=== PATIENT | male | born 1935 | race Caucasian/White ===

== ENCOUNTER → 2018-11-06 11:58 | Outpatient (CLI) | payer OTHER, SELFPAY ==
[2018-11-06 12:19] LABS: Hematocrit 47.9 % (41-53); Hemoglobin 15.9 g/dL (13.5-17.5)
[2018-11-06 14:31] LABS: BUN Creatinine Ratio 12.5 (6-22); Blood Urea Nitrogen 10 mg/dL (9-20); Calcium 9.3 mg/dL (8.4-10.2); Carbon Dioxide 31 mmol/L (22-32); Chloride 100 mmol/L (98-107); Estimated Glomerular Filt Rate > 60.0 mL/min (>60); Glucose 92 mg/dL (80-110); HEMOLYSIS < 15 (0-50); Potassium 4.2 mmol/L (3.4-5.1); Sodium 140 mmol/L (137-145)
[2018-11-06 15:43] LABS: Vitamin D 25 Hydroxy (D3) 88.9 ng/mL (30.0-100.0)
== END ==
PROVIDERS: PCP Student in an Organized Health Care Education/Training Program; Visit Provider Student in an Organized Health Care Education/Training Program
DX: E03.9 Hypothyroidism, unspecified (principal); E55.9 Vitamin D deficiency, unspecified; I10 Essential (primary) hypertension
CPT/HCPCS: 80048; 82306; 85014; 85018

== ENCOUNTER → 2019-02-03 14:49 | Outpatient (CLI) | payer OTHER, SELFPAY ==
[2019-02-03 16:22] LABS: Alanine Aminotransferase 21 IU/L (21-72); Albumin 3.9 g/dL (3.5-5.0); Albumin Globulin Ratio 1.2 (1.0-2.8); Alkaline Phosphatase 66 U/L (38-126); Aspartate Aminotransferase 32 IU/L (17-59); BUN Creatinine Ratio 14.4 (6-22); Bilirubin Total 0.7 mg/dL (0.2-1.3); Blood Urea Nitrogen 13 mg/dL (9-20); Calcium 9.7 mg/dL (8.4-10.2); Carbon Dioxide 32 mmol/L (22-32); Chloride 97 mmol/L (98-107); Estimated Glomerular Filt Rate > 60.0 mL/min (>60); Globulin 3.2 g/dL (1.7-4.1); Glucose 131 mg/dL (80-110); HEMOLYSIS < 15 (0-50); Sodium 139 mmol/L (137-145); Total Protein 7.1 g/dL (6.3-8.2)
[2019-02-03 16:31] LABS: B Type Natriuretic Peptide < 100 (<100)
== END ==
PROVIDERS: PCP Student in an Organized Health Care Education/Training Program; Visit Provider Student in an Organized Health Care Education/Training Program
DX: R60.0 Localized edema (principal)
CPT/HCPCS: 36415; 80053; 83880

== ENCOUNTER 2020-01-08 15:54 | Emergency (ER) | payer OTHER, SELFPAY ==
[2020-01-08 16:00] VITALS: BP 149/71; PULSE 70; RESP 16; TEMP 36.5; O2SAT 96; BMI 35.2
--- NOTE | 2020-01-08 17:08 | ED_ITS ---
HPI - Extremity Injury (Lower) General Chief Complaint: Extremity Injury, Lower Stated Complaint: left knee rash or thinks infected, slight pain Time Seen by Provider: 01/08/20 17:08 Source: patient Mode of arrival: Ambulatory Limitations: no limitations History of Present Illness HPI Narrative: This is an 84-year-old male who comes in with complaint of a wound on his left knee which has not been healing patient states he fell weeks ago. He states that has not closed and he states that there has been sort of some whitish discoloration on the area for the last several days. He has not had any fevers he is not having increasing swelling of the knee. He does not feel like there is increasing redness surrounding the knee. He states there is some discoloration that was present initially. He states there has been some drainage but not excessive. He has been putting hydrogen peroxide on the area every other day since the injury. Patient states that he just scraped his knee. He does not know if his tetanus is up-to-date, he states he follows with Dr. Roman. He denies any allergies to medications. He does take cardiac medications. He is accompanied by family at bedside and she states initially it was more of a scrape but looks more open at this time. Related Data Previous Rx's Medication Instructions Recorded trazodone 50 mg tablet 50 - 100 mg PO HS #180 tab 05/14/19 magnesium oxide 420 mg tablet 420 mg PO DAILY #90 tab 05/19/19 tamsulosin 0.4 mg capsule See Rx Instructions .ROUTE 05/19/19 .COMPLEX #90 capsule amlodipine 10 mg tablet 10 mg PO Q DAY #90 tab 05/31/19 sildenafil (pulm.hypertension) 20 See Rx Instructions .ROUTE 06/14/19 mg tablet .COMPLEX #25 tablet atenolol 50 mg tablet 50 mg PO BID #180 tab 11/02/19 cephalexin [Keflex] 500 mg PO QID 7 Days #28 cap 01/08/20 Allergies Allergy/AdvReac Type Severity Reaction Status Date / Time No Known Drug Allergies Allergy Verified 12/17/19 09:40 Review of Systems Review of Systems ROS Unobtainable: All systems reviewed & are unremarkable except as noted in HPI and below Patient History Medical History Acquired hypothyroidism (09/16/16) Actinic keratosis (Resolved) Basal cell carcinoma (Resolved) 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) Bilateral edema of lower extremity (06/29/15) Bilateral knee pain (Chronic) BPH (benign prostatic hyperplasia) (Chronic) Chronic pain of left knee (11/18/16) Colon polyps (Resolved) Depression (06/29/15) Depression (Chronic) Erectile dysfunction (02/12/16) Erectile dysfunction (Chronic) Essential hypertension (Chronic 06/29/15) Gout (Chronic) 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 HEENT: Head normocephalic, atraumatic, EOMI, pupils reactive, face symmetric, moist mucous membranes NECK: Supple, full range of motion EXTREMITIES: Normal range of motion, no clubbing or edema. Neurovascularly intact. Patient's right knee has abrasion that is 1.5 cm x 2cm in in a regular sq. There is some mild erythema extending about a 0.5 cm from the edge. There does not appear to be any purulent drainage. There is some whitish granulation tissue overlying the area, the abrasion itself appears fairly superficial but is through the skin. NEUROLOGICAL: Cranial nerves II through XII grossly intact. Moving all extremities SKIN: Warm, dry, no petechiae, no rashes or lesions noted otherwise. Initial Vital Signs Initial Vital Signs: Vital Signs Temperature 97.7 F 01/08/20 16:00 Pulse Rate 70 01/08/20 16:00 Respiratory Rate 16 01/08/20 16:00 Blood Pressure 149/71 H 01/08/20 16:00 Pulse Oximetry 96 01/08/20 16:00 Course Orders Ordered: Discontinued Medications Diphtheria/Tetanus/Acell Pertussis (Adacel) 0.5 ml IM .ONCE ONE Stop: 01/08/20 17:27 Vital Signs Vital signs: Vital Signs - 8 hr 01/08/20 16:00 Temperature 97.7 F Pulse Rate 70 Respiratory Rate 16 Blood Pressure 149/71 H Pulse Oximetry 96 MDM - Extremity Injury (Lower) MDM Narrative Medical decision making narrative: Discussed with patient he has not been leaving the area to air out at any point he has been keeping an occlusive dressing on it the majority of the time and using hydrogen peroxide on a regular basis. We discussed this may inhibit healing somewhat. I would go ahead and start him on some antibiotics as he does have some whitish discoloration and to change his wound care routine. I did ask that he follow-up with primary care in the next several days or if he is having any worsening symptoms to return. Patient was unsure of his tetanus, he in the EMR record it is not noted that it has been given recently and he was amenable to update today. Discharge Plan Departure Patient Disposition: Home Clinical Impression: Open wound of knee Qualifiers: Encounter type: initial encounter Laterality: left Qualified Code(s): S81.002A - Unspecified open wound, left knee, initial encounter Instructions: Skin Wound Activity Restrictions/Additional Instructions: Follow up with Dr. Roman in the next 3-5 days if you are not having any improvement of your wound on your knee. Take antibiotics until gone. Continue your other home medications as prescribed. Do not use hydrogen peroxide to the affected area anymore. Allow area to air dry when at home dressing and only use an occlusive dressing sparingly. Wound Care: Keep wound(s) clean and dry. Wash daily with soap and water only twice daily. Do not use over the counter products (alcohol or peroxide)on the wounds unless instructed by a physician. If wound condition worsens (increased/expanding redness, developing fluid blisters, or worsening pain), either contact your doctor for an urgent re- assessment , or return to the Emergency Department. Return to the Emergency Department for any new or worsening symptoms. Return if fever greater than 100.4 Fahrenheit, increased swelling, increasing pain or worsening symptoms such as increased discharge or spreading redness, increasing or purulent drainage other new or concerning symptoms. Prescriptions: New cephalexin [Keflex] 500 mg capsule 500 mg PO QID 7 Days Qty: 28 RF: 0 No Action trazodone 50 mg tablet 50 - 100 mg PO HS Qty: 180 RF: 3 tamsulosin 0.4 mg capsule See Rx Instructions .ROUTE .COMPLEX Qty: 90 RF: 3 magnesium oxide 420 mg tablet 420 mg PO DAILY Qty: 90 RF: 3 amlodipine 10 mg tablet 10 mg PO Q DAY Qty: 90 RF: 3 sildenafil (pulm.hypertension) 20 mg tablet See Rx Instructions .ROUTE .COMPLEX Qty: 25 RF: 11 atenolol 50 mg tablet 50 mg PO BID Qty: 180 RF: 3 Referrals: Larry Roman MD [Primary Care Provider] -
[2020-01-08] MEDS: TET,DIPH,PERTUSS(ACELL),VAC/PF 0.5 ML SYRINGE IM (17:40)
== END 2020-01-08 17:48 | disposition home or self-care (01) ==
PROVIDERS: Emergency Provider Emergency Medicine; PCP Student in an Organized Health Care Education/Training Program
DX: S81.002A Unspecified open wound, left knee, initial encounter (principal); W19.XXXA Unspecified fall, initial encounter; Z23 Encounter for immunization
CPT/HCPCS: 90471; 99283; 90715

== ENCOUNTER → 2020-01-18 13:43 | Outpatient (CLI) | payer OTHER, SELFPAY ==
[2020-01-18 14:55] LABS: BUN Creatinine Ratio 13.5 (6-22); Blood Urea Nitrogen 13 mg/dL (9-20); Calcium 9.6 mg/dL (8.4-10.2); Carbon Dioxide 31 mmol/L (22-32); Chloride 102 mmol/L (98-107); Estimated Glomerular Filt Rate > 60.0 mL/min (>60); Glucose 102 mg/dL (80-110); HEMOLYSIS < 15 (0-50); Potassium 4.1 mmol/L (3.4-5.1); Sodium 139 mmol/L (137-145)
== END ==
PROVIDERS: PCP Student in an Organized Health Care Education/Training Program; Referring Provider Student in an Organized Health Care Education/Training Program; Visit Provider Student in an Organized Health Care Education/Training Program
DX: I10 Essential (primary) hypertension (principal)
CPT/HCPCS: 36415; 80048

== ENCOUNTER → 2020-01-21 16:30 | Outpatient (CLI) | payer OTHER, SELFPAY ==
[2020-01-21 16:57] LABS: Add Manual Diff / Slide Review NO; Basophils Absolute Auto 0 /uL (0-100); Basophils Percent Auto 0.6 % (0-2); Eosinophils Absolute Auto 100 /uL (0-450); Eosinophils Percent Auto 1.8 % (2-4); Hematocrit 46.6 % (41-53); Hemoglobin 16.3 g/dL (13.5-17.5); Lymphocytes Absolute Auto 1200 /uL (1100-4500); Lymphocytes Percent Auto 16.2 % (25-40); Mean Corpuscular Hemoglobin 33.6 PG (26-34); Monocytes Absolute Auto 800 /uL (0-900); Monocytes Percent Auto 11.5 % (3-14); Neutrophils Absolute Auto 5200 /uL (1500-7000); Neutrophils Percent Auto 69.9 % (50-75); Platelet Count 158 X10^3/uL (150-400); Red Blood Cell Count 4.86 X10^6/uL (4.5-5.9); Red Cell Distribution Width 14.5 % (11.6-14.8); White Blood Cell Count 7.4 X10^3/uL (4.5-11.0)
[2020-01-21 17:19] LABS: C-Reactive Protein Quant 1.3 mg/dL (<1.0)
[2020-01-21 17:47] LABS: Testosterone 302 ng/dL (71.8-623)
[2020-01-21 18:03] LABS: Vitamin B12 202 pg/mL (239-931)
[2020-01-21 18:13] LABS: TSH w/ Reflex to FT4 3.14 uIU/mL (0.47-4.68)
== END ==
PROVIDERS: PCP Student in an Organized Health Care Education/Training Program; Referring Provider Student in an Organized Health Care Education/Training Program; Visit Provider Student in an Organized Health Care Education/Training Program
DX: F32.9 Major depressive disorder, single episode, unspecified (principal); E03.9 Hypothyroidism, unspecified; R53.83 Other fatigue; N52.9 Male erectile dysfunction, unspecified
CPT/HCPCS: 36415; 82607; 84403; 84443; 85025; 86140

== ENCOUNTER → 2020-03-09 09:01 | Outpatient (CLI) | payer OTHER, SELFPAY ==
[2020-03-10 19:03] LABS: COVID19 Sendout Not Detected (Not Detect)
== END ==
PROVIDERS: PCP Student in an Organized Health Care Education/Training Program; Visit Provider Physician Assistant
DX: Z01.812 Encounter for preprocedural laboratory examination (principal)
CPT/HCPCS: 87635

== ENCOUNTER 2020-10-23 02:07 | Emergency (ER) | payer OTHER, SELFPAY ==
[2020-10-23] VITALS (15 sets, daily range): BP systolic 88–135; BP diastolic 51–58; PULSE 62–68; RESP 19–26; TEMP 36.9; O2SAT 87–100; BMI 34.2
--- NOTE | 2020-10-23 02:22 | DI.CT.S_ITS ---
PROCEDURE: CT HEAD/BRAIN WO CON INDICATIONS: fall dizzy TECHNIQUE: Noncontrast 4.5 mm thick angled axial sections acquired from the foramen magnum to the vertex, with coronal and sagittal reformats. For radiation dose reduction, the following was used: automated exposure control, adjustment of mA and/or kV according to patient size. COMPARISON: [facility], CT, HEAD WITHOUT CONTRAST, 06/24/2015, 19:53. FINDINGS: Image quality: Excellent. CSF spaces: Basal cisterns are patent. No extra-axial fluid collections. The ventricles are symmetric in size and shape. Brain: No acute intracranial hemorrhage or mass effect. An old lacunar infarct versus prominent perivascular space is seen in the right basal ganglia, which appears stable when compared to the prior CT from 06/24/2015. A small focus of chronic encephalomalacia is seen in the right frontal lobe, compatible with a remote prior insult. There is cerebral volume loss for age, with resultant ventricular and sulcal prominence. There are periventricular and deep white matter chronic small vessel ischemic changes. There is intracranial internal carotid artery atherosclerosis. Skull and face: Calvarium and visualized facial bones appear intact, without suspicious lesions. Sinuses: Visualized sinuses and mastoids are clear. IMPRESSION: 1. No acute intracranial abnormality. 2. Focus of chronic encephalomalacia in the right frontal lobe may be secondary to a remote prior infarct or trauma. 3. Chronic microvascular ischemic changes and age related cerebral atrophy. There is no significant discrepancy when compared to the overnight Teleradiology report. Dictated by: Eduardo Kurtz M.D. on 10/23/2020 at 7:44 Approved by: Eduardo Kurtz M.D. on 10/23/2020 at 7:48
--- NOTE | 2020-10-23 02:24 | ED.FALL ---
HPI - Fall General Chief Complaint: Fall Stated Complaint: Dizzy, GLF Time Seen by Provider: 10/23/20 02:15 Source: patient and EMS Mode of arrival: EMS Limitations: no limitations History of Present Illness HPI Narrative: Patient is an 85-year-old male who presents after ground level fall. He states that he had 1 drink at 5:00 p.m. typically does. He was trying to go to sleep now he got up and some is a had a ground level fall. Initially there was some complaint of dizziness but he actually is not having any dizziness now he did have 1 episode of vomiting. He denies any chest pain or palpitations. He has no numbness tingling or weakness. He says that his left knee gave out from him. According to records he has had bilateral lower extremity weakness which is been on going. His left knee to be your wrist and has had complaints of this in the past. He says got he got up in his left knee buckled and he fell. He called out to his roommate who called 911 and was brought here for further evaluation. MD complaint: fall Onset (ago): minute(s) Fall from: standing Fall witnessed: no Place fall occurred: home Related Data Previous Rx's Medication Instructions Recorded magnesium oxide 420 mg tablet 420 mg PO DAILY #90 tab 05/19/19 atenolol 50 mg tablet 50 mg PO BID #180 tab 11/02/19 tamsulosin 0.4 mg capsule 0.4 mg PO BEDTIME #90 cap 02/18/20 trazodone 50 mg tablet 50 - 100 mg PO HS #180 tab 03/29/20 amlodipine 10 mg tablet 10 mg PO Q DAY #90 tab 05/15/20 diclofenac sodium 100 mg 100 mg PO BID #60 tab 09/22/20 tablet,extended release 24 hr sildenafil (pulm.hypertension) 20 20 - 100 mg PO DAILY PRN #30 tab 10/19/20 mg tablet Allergies Allergy/AdvReac Type Severity Reaction Status Date / Time No Known Drug Allergies Allergy Verified 09/22/20 14:03 Review of Systems Review of Systems ROS Unobtainable: All systems reviewed & are unremarkable except as noted in HPI and below Constitutional Constitutional: Denies chills, Denies fever(s), Denies lethargy, Reports poor appetite and Denies weakness Eyes Eyes: Denies loss of vision Cardiovascular Cardiovascular: Denies chest pain, Denies irregular heart rhythm, Reports lightheadedness, Denies dyspnea and Denies dyspnea on exertion Respiratory Respiratory: Denies cough, Denies dyspnea, Denies dyspnea on exertion and Denies wheezing Gastrointestinal Gastrointestinal: Reports as per HPI, Reports abdominal pain (LLQ x 3 days), Denies loose stools and Denies nausea Musculoskeletal Musculoskeletal: Reports as per HPI and Reports arthralgias Integumentary/Breasts Skin/Breast: Denies pruritus, Denies erythema, Denies rash and Denies wounds Neurologic Neurologic: Denies localized weakness, Denies loss of vision, Denies memory loss and Denies weakness Psychiatric Psychiatric: Denies memory loss Allergic/Immunologic Allergic/Immunologic: Denies wheezing Patient History Medical History Acquired hypothyroidism (09/16/16) Actinic keratosis Basal cell carcinoma 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) Bilateral edema of lower extremity (06/29/15) Bilateral knee pain BPH (benign prostatic hyperplasia) Chronic pain of left knee (11/18/16) Colon polyps Depression (06/29/15) Depression Erectile dysfunction (02/12/16) Erectile dysfunction Essential hypertension (06/29/15) 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) Hemorrhoids Hyperlipemia Hypertension Hyperthyroidism Insomnia Obstructive sleep apnea Osteoarthritis Papules Pedal edema Primary insomnia (09/16/16) Pure hypercholesterolemia (02/12/16) Squamous cell carcinoma Surgical History History of ectropion repair (10/2017) Hx of surgical procedure Family History Family/Other Unknown family medical history Social History Smoking Status: Current every day smoker Smoking Status: Current every day smoker alcohol intake frequency: 0-2 drinks per day Substance Use Type: does not use Exam Initial Vital Signs Initial Vital Signs: Vital Signs Pulse Oximetry 100 10/23/20 02:09 GENERAL: Alert pleasant 85-year-old male and in no acute distress. HEENT: Head atraumatic,EOMI, pupils reactive, face symmetric, moist mucous membranes CARDIOVASCULAR: Regular rate and rhythm without murmurs, rubs or gallops. RESPIRATORY: Breath sounds equal bilaterally, no wheezes rales or rhonchi. ABDOMEN: Soft, tender left lower quadrant no guarding or rebound EXTREMITIES: Normal range of motion, no clubbing or edema. Neurovascularly intact NEUROLOGICAL: Alert and oriented x4.Normal gait and speech. Cranial nerves II through XII grossly intact. Good [id number], good [id number], strength equal bilaterally, no dysarthria or aphasia, sensation in tact to soft touch bilaterally, no visual changes, no facial droop SKIN: Warm, dry, no laceration, no petechiae, no rashes or lesions. Scores NIH Stroke Scale Level of Conciousness: Alert, keenly responsive Ask month/age: Answers both questions correctly. Open/close eyes, close hand: Performs both tasks correctly Best gaze horizontal: Normal Visual zeng: No visual loss Facial palsy: Normal symetrical movement Left arm drift: No drift for full 10 sec Right arm drift: No drift for full 10 sec Left leg drift: No drift for full 5 sec Right leg drift: No drift for full 5 sec Limb ataxia: Absent Sensory on face/arms/legs: Normal, no sensory loss Best language: No aphasia, normal Dysarthria: Normal Extinction or inattention: No abnormality Total NIH Stroke scale score: 0 Course Orders Ordered: ED Orders 10/23/20 02:06 EKG-12 Lead Stat 10/23/20 02:22 CT head/brain wo con Stat 10/23/20 02:27 XR chest 1V Stat XR knee LT 3V Stat 10/23/20 02:30 Lactate (Lactic Acid) Stat Lipase Stat Procalcitonin Stat 10/23/20 02:35 Complete Blood Count AUTO DIFF Stat Comprehensive Metabolic Panel Stat Troponin & CK Cardiac Panel Stat 10/23/20 03:38 CT abdomen pelvis w con Stat 10/23/20 04:40 COVID19 Stat Discontinued Medications Sodium Chloride (Normal Saline 0.9%) 1,000 mls @ 150 mls/hr IV CONT BHAVIN Last Admin: 10/23/20 04:41 Dose: 150 mls/hr Documented by: MADDIE Sodium Chloride (Normal Saline 0.9%) 1,000 mls @ 1,000 mls/hr IV BOLUS ONE Stop: 10/23/20 03:30 Last Infusion: 10/23/20 04:02 Dose: 0 mls/hr Documented by: Admin: 10/23/20 02:50 Dose: 1,000 mls/hr Documented by: MADDIE Vital Signs Vital signs: Vital Signs - 8 hr 10/23/20 02:09 10/23/20 02:10 10/23/20 02:14 Temperature 98.4 F Pulse Rate 63 67 Respiratory Rate 20 Blood Pressure 100/55 L 100/55 L Pulse Oximetry 100 98 10/23/20 02:30 10/23/20 02:59 10/23/20 03:00 Temperature Pulse Rate 65 64 63 Respiratory Rate 19 26 H 23 Blood Pressure 88/51 L 96/55 L Pulse Oximetry 90 L 90 L 91 10/23/20 03:30 10/23/20 04:14 10/23/20 04:30 Temperature Pulse Rate 62 66 Respiratory Rate 20 Blood Pressure 110/54 L Pulse Oximetry 91 93 89 L 10/23/20 04:34 10/23/20 05:00 10/23/20 05:26 Temperature Pulse Rate 65 66 68 Respiratory Rate 24 22 Blood Pressure 114/51 L 107/51 L 135/58 L Pulse Oximetry 87 L 94 10/23/20 05:30 10/23/20 05:58 10/23/20 06:00 Temperature Pulse Rate 65 68 Respiratory Rate Blood Pressure 108/55 L 111/55 L Pulse Oximetry 94 91 MDM - Fall Lab Data Attestation: I reviewed the patient's lab results. Result diagrams: 10/23/20 02:35 10/23/20 02:35 Labs: Lab Results 10/23/20 10/23/20 10/23/20 Range/Units 02:30 02:30 02:30 WBC (4.5-11.0) X10^3/uL RBC (4.5-5.9) X10^6/uL Hgb (13.5-17.5) g/dL Hct (41-53) % MCV (80-100) fL MCH (26-34) PG MCHC (30-36) % RDW (11.6-14.8) % Plt Count (150-400) X10^3/uL Neut % (Auto) (50-75) % Lymph % (Auto) (25-40) % [place] % (Auto) (3-14) % Eos % (Auto) (2-4) % Baso % (Auto) (0-2) % Neut # (Auto) (3040-9924) /uL Lymph # (Auto) (2167-9621) /uL [place] # (Auto) (0-900) /uL Eos # (Auto) (0-450) /uL Baso # (Auto) (0-100) /uL Sodium (137-145) mmol/L Potassium (3.4-5.1) mmol/L Chloride (98-107) mmol/L Carbon Dioxide (22-32) mmol/L BUN (9-20) mg/dL Creatinine (0.66-1.25) mg/dL Estimated GFR (>60) mL/min BUN/Creatinine Ratio (6-22) Glucose (80-110) mg/dL Lactate 2.1 (0.7-2.1) mmol/L Calcium (8.4-10.2) mg/dL Total Bilirubin (0.2-1.3) mg/dL AST (17-59) IU/L ALT (<50) IU/L Alkaline Phosphatase (38-126) U/L Total Creatine Kinase (55-170) U/L CK-MB (CK-2) CK-MB (CK-2) Rel Index Troponin I (0.01-0.034) ng/mL Total Protein (6.3-8.2) g/dL Albumin (3.5-5.0) g/dL Globulin (1.7-4.1) g/dL Albumin/Globulin Ratio (1.0-2.8) Lipase 93 (23-300) U/L Procalcitonin 0.09 (<0.5) ng/mL SARS-CoV-2 (PCR) (Negative) 10/23/20 10/23/20 10/23/20 Range/Units 02:35 02:35 04:40 WBC 6.8 (4.5-11.0) X10^3/uL RBC 4.06 L (4.5-5.9) X10^6/uL Hgb 13.1 L (13.5-17.5) g/dL Hct 39.5 L (41-53) % MCV 97.4 (80-100) fL MCH 32.2 (26-34) PG MCHC 33.1 (30-36) % RDW 14.9 H (11.6-14.8) % Plt Count 179 (150-400) X10^3/uL Neut % (Auto) 66.7 (50-75) % Lymph % (Auto) 21.0 L (25-40) % [place] % (Auto) 7.6 (3-14) % Eos % (Auto) 3.4 (2-4) % Baso % (Auto) 1.3 (0-2) % Neut # (Auto) 4500 (7522-4978) /uL Lymph # (Auto) 1400 (4330-6390) /uL [place] # (Auto) 500 (0-900) /uL Eos # (Auto) 200 (0-450) /uL Baso # (Auto) 100 (0-100) /uL Sodium 137 (137-145) mmol/L Potassium 4.0 (3.4-5.1) mmol/L Chloride 104 (98-107) mmol/L Carbon Dioxide 31 (22-32) mmol/L BUN 42 H (9-20) mg/dL Creatinine 1.10 (0.66-1.25) mg/dL Estimated GFR > 60.0 (>60) mL/min BUN/Creatinine Ratio 38.2 H (6-22) Glucose 100 (80-110) mg/dL Lactate (0.7-2.1) mmol/L Calcium 8.5 (8.4-10.2) mg/dL Total Bilirubin 0.5 (0.2-1.3) mg/dL AST 17 (17-59) IU/L ALT 9 (<50) IU/L Alkaline Phosphatase 46 (38-126) U/L Total Creatine Kinase 31 L (55-170) U/L CK-MB (CK-2) TNP CK-MB (CK-2) Rel Index TNP Troponin I < 0.012 (0.01-0.034) ng/mL Total Protein 5.6 L (6.3-8.2) g/dL Albumin 2.8 L (3.5-5.0) g/dL Globulin 2.8 (1.7-4.1) g/dL Albumin/Globulin Ratio 1.0 (1.0-2.8) Lipase (23-300) U/L Procalcitonin (<0.5) ng/mL SARS-CoV-2 (PCR) Negative (Negative) Imaging Data CT scan - head: Radiologist's Impression: Preliminary report generalized involutional changes noted consistent with age. No acute identified. Right frontal encephalomalacia is consistent previous trauma or infarct. Extremity x-ray #1: Radiologist's Impression: Left knee preliminary report: Findings are suggestive of chronic patellar tendinopathy potentially an old tear. No acute abnormality or intra-articular abnormality appreciated Chest x-ray: Radiologist's Impression: No active cardiopulmonary disease demonstrated CT scan - abdomen/pelvis: Radiologist's Impression: Subtle pericolic stranding could represent mild diverticulitis no perforation or abscess. Cholelithiasis by renal cysts sepsis prostate enlargement degenerative changes of lumbar spine are all noted. ECG Data Attestation: I personally reviewed and interpreted this ECG as follows: Prior ECG tracings: available for review Interpretation: He sinus rhythm rate 67 p.r. interval 172 QRS [address] changes or T-wave inversions MDM Narrative Medical decision making narrative: Initially patient was thought to be complaining of dizziness home is denying any dizziness or focal deficits. Blood pressure is found to be slightly low which easily improves with IV fluids. Patient was re-evaluated and some tenderness in left lower quadrant. He states that this has been there for the last couple of days. CT shows possible mild diverticulitis but he has no leukocytosis fever or really significant pain. At this time no antibiotics. His O2 sat decreases while sleeping to 87% he does have a history of sleep apnea. He is not complaining of any shortness of breath chest x-ray was clear. COVID test is negative. Patient is ambulatory in the ER without any assistance or assistive walking device. I have discussed test results with his daughter. Discharge Plan Departure Patient Disposition: Home Clinical Impression: Dehydration Instructions: Dehydration, How to Prevent Falls Activity Restrictions/Additional Instructions: *You have been diagnosed with dehydration *What to do: Some of your symptoms are likely related to being dehydrated. Please increase fluid intake as tolerated increased fluid intake as tolerated as well. Air CT scan of abdomen shows possible mild infection diverticulitis however the blood work is overall reassuring. If your pain is worsening you may his need antibiotics so please return to the emergency department *Continue to take medications as directed *Follow up with your primary care provider in 2-3 days *Return to ER if you should have worsening dizziness, weakness, vomiting, abdominal pain or any new, worsening or concerning symptoms Prescriptions: No Action magnesium oxide 420 mg tablet 420 mg PO DAILY Qty: 90 RF: 3 atenolol 50 mg tablet 50 mg PO BID Qty: 180 RF: 3 tamsulosin 0.4 mg capsule 0.4 mg PO BEDTIME Qty: 90 RF: 3 trazodone 50 mg tablet 50 - 100 mg PO HS Qty: 180 RF: 3 amlodipine 10 mg tablet 10 mg PO Q DAY Qty: 90 RF: 3 sildenafil (pulm.hypertension) 20 mg tablet 20 - 100 mg PO DAILY PRN (Reason: sexual activity) Qty: 30 RF: 11 diclofenac sodium 100 mg tablet extended release 24 hr 100 mg PO BID Qty: 60 RF: 11 Referrals: Larry Roman MD [Primary Care Provider] -
--- NOTE | 2020-10-23 02:27 | DI.RAD.S_ITS ---
PROCEDURE: XR CHEST 1V INDICATIONS: dizzy TECHNIQUE: One view of the chest was acquired. COMPARISON: [facility], , CHEST 1 VIEW, 09/14/2016, 12:29. FINDINGS: Surgical changes and devices: None. Lungs and pleura: Lungs are clear. No pleural effusions or pneumothorax. Mediastinum: Mediastinal contours appear normal. Heart size is borderline, which is likely exaggerated by AP technique. Bones and chest wall: No suspicious bony lesions. Overlying soft tissues appear unremarkable. IMPRESSION: No acute cardiopulmonary abnormality. There is no significant discrepancy when compared to the overnight Teleradiology report. Dictated by: Eduardo Kurtz M.D. on 10/23/2020 at 7:51 Approved by: Eduardo Kurtz M.D. on 10/23/2020 at 7:53
--- NOTE | 2020-10-23 02:27 | DI.RAD.S_ITS ---
PROCEDURE: XR KNEE LT 3V INDICATIONS: fall weakness TECHNIQUE: 3D views of the knee were acquired. COMPARISON: [facility], , KNEE 3V LEFT, 07/17/2017, 0:31. [facility], , KNEE 3V RIGHT, 10/03/2017, 19:20. FINDINGS: Bones: No acute fractures or dislocations. No suspicious bony lesions. Mild joint space narrowing is seen in the medial femorotibial compartment. 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 Enthesophyte formation is seen at the inferior patella. Soft tissues: No significant joint effusion. No suspicious soft tissue calcifications. Atherosclerotic calcifications are seen along the course of the popliteal artery. A small radiodense foreign body is seen at the posterior medial aspect of the knee, unchanged when compared to the prior exam. IMPRESSION: No acute osseous abnormality. If clinical suspicion and/or symptoms persist, additional imaging with repeat plain films, or advanced imaging (e.g. CT, MRI) may be helpful for further assessment. There is no significant discrepancy when compared to the overnight Teleradiology report. Dictated by: Eduardo Kurtz M.D. on 10/23/2020 at 7:48 Approved by: Eduardo Kurtz M.D. on 10/23/2020 at 7:51
[2020-10-23 02:45] LABS: Add Manual Diff / Slide Review NO; Basophils Absolute Auto 100 /uL (0-100); Basophils Percent Auto 1.3 % (0-2); Eosinophils Absolute Auto 200 /uL (0-450); Eosinophils Percent Auto 3.4 % (2-4); Hematocrit 39.5 % (41-53); Hemoglobin 13.1 g/dL (13.5-17.5); Lymphocytes Absolute Auto 1400 /uL (1100-4500); Mean Corpuscular HGB Conc 33.1 % (30-36); Mean Corpuscular Hemoglobin 32.2 PG (26-34); Mean Corpuscular Volume 97.4 fL (80-100); Monocytes Absolute Auto 500 /uL (0-900); Monocytes Percent Auto 7.6 % (3-14); Neutrophils Absolute Auto 4500 /uL (1500-7000); Neutrophils Percent Auto 66.7 % (50-75); Platelet Count 179 X10^3/uL (150-400); Red Blood Cell Count 4.06 X10^6/uL (4.5-5.9); Red Cell Distribution Width 14.9 % (11.6-14.8); White Blood Cell Count 6.8 X10^3/uL (4.5-11.0)
[2020-10-23] MEDS: SODIUM CHLORIDE 0.9% 1,000 ML 1000 ML IV (02:50)
[2020-10-23 02:51] LABS: Alanine Aminotransferase 9 IU/L (<50); Albumin 2.8 g/dL (3.5-5.0); Alkaline Phosphatase 46 U/L (38-126); Aspartate Aminotransferase 17 IU/L (17-59); BUN Creatinine Ratio 38.2 (6-22); Bilirubin Total 0.5 mg/dL (0.2-1.3); Blood Urea Nitrogen 42 mg/dL (9-20); Calcium 8.5 mg/dL (8.4-10.2); Carbon Dioxide 31 mmol/L (22-32); Chloride 104 mmol/L (98-107); Creatine Kinase 31 U/L (55-170); Estimated Glomerular Filt Rate > 60.0 mL/min (>60); Globulin 2.8 g/dL (1.7-4.1); Glucose 100 mg/dL (80-110); HEMOLYSIS 17 (0-50); Sodium 137 mmol/L (137-145); Total Protein 5.6 g/dL (6.3-8.2)
[2020-10-23 03:03] LABS: Troponin I < 0.012 ng/mL (0.01-0.034)
[2020-10-23 03:38] LABS: Lipase 93 U/L (23-300)
--- NOTE | 2020-10-23 03:38 | DI.CT.S_ITS ---
PROCEDURE: CT ABDOMEN PELVIS W CON INDICATIONS: LLQpain TECHNIQUE: After the administration of intravenous contrast, 5 mm thick sections acquired from the diaphragm to the symphysis. 5 mm coronal and sagittal reformats were acquired. For radiation dose reduction, the following was used: automated exposure control, adjustment of mA and/or kV according to patient size. COMPARISON: None. FINDINGS: Image quality: Excellent. ABDOMEN: Lung bases: There is mild elevation of the left hemidiaphragm and atelectasis seen in both lung bases. Heart size is normal. Solid organs: Liver is normal in size and enhancement. Gallbladder contains gallstones. Biliary system is non dilated. Pancreas enhances normally. Spleen is normal in size and enhancement. No adrenal nodules. Kidneys demonstrate normal size and enhancement, without hydronephrosis. Multiple cysts are seen in both kidneys. A 2 x 1.7 cm exophytic lesion at the inferior pole of the left kidney is most likely a proteinaceous or hemorrhagic cyst versus a solid mass. Peritoneum and bowel: Multiple diverticula are seen in the colon. There is mild inflammatory fat stranding along the left pericolic gutter that likely represents mild diverticulitis. No discrete fluid collection is seen. There is no pneumoperitoneum. No signs of bowel obstruction are seen. A large amount of undigested food material is seen in the stomach. The appendix appears normal. Nodes and vessels: No retroperitoneal or mesenteric adenopathy by size criteria. Aorta and inferior vena cava are normal in size. Moderate atherosclerotic calcifications are seen in the aorta. Miscellaneous: No ventral hernias. PELVIS: Genitourinary: Bladder wall thickness is normal. The prostate is enlarged. Miscellaneous: No inguinal hernias or adenopathy. Bones: No suspicious bony lesions. No vertebral body compression fractures. Multilevel degenerative changes are seen in the included portions of the spine. IMPRESSION: 1. Mild acute uncomplicated diverticulitis at the junction of the descending and sigmoid colon. 2. Cholelithiasis. 3. Hyperdense 2 cm exophytic lesion at the inferior pole of left kidney may represent a proteinaceous or hemorrhagic cyst versus a solid mass. Consider renal ultrasound versus renal protocol MRI or CT for further evaluation. Numerous additional simple renal cysts are seen bilaterally. 4. Prostatomegaly. There is no significant discrepancy when compared to the overnight Teler[facility] report. Dictated by: Eduardo Kurtz M.D. on 10/23/2020 at 7:55 Approved by: Eduardo Kurtz M.D. on 10/23/2020 at 8:03
[2020-10-23 03:41] LABS: Lactate (Lactic Acid) 2.1 mmol/L (0.7-2.1)
[2020-10-23 03:56] LABS: Procalcitonin 0.09 ng/mL (<0.5)
[2020-10-23] MEDS: SODIUM CHLORIDE 0.9% 1,000 ML 150 ML IV (04:41)
[2020-10-23 05:00] LABS: COVID19 -Nasal RAPID Negative (Negative)
[2020-10-23 05:28] LABS: Reflexed Lactate in 2 Hours Y
== END 2020-10-23 06:10 | disposition home or self-care (01) ==
PROVIDERS: Emergency Provider Emergency Medicine; PCP Student in an Organized Health Care Education/Training Program
DX: E86.0 Dehydration (principal); R10.32 Left lower quadrant pain; R11.10 Vomiting, unspecified; Z20.822 Contact with and (suspected) exposure to COVID-19; W19.XXXA Unspecified fall, initial encounter
CPT/HCPCS: 36415; 70450; 71045; 73562; 74177; 80053; 82550; 83605; 83690; 84145; 84484; 85025; 87635; 93005; C9803; Q9967

== ENCOUNTER 2020-10-23 18:52 | Emergency (ER) | payer OTHER, SELFPAY ==
[2020-10-23] VITALS (44 sets, daily range): BP systolic 82–122; BP diastolic 46–58; PULSE 60–74; RESP 1–32; TEMP 36.4–36.7; O2SAT 76–100
--- NOTE | 2020-10-23 19:29 | DI.CT.S_ITS ---
PROCEDURE: CT HEAD/BRAIN WO CON INDICATIONS: dizziness, ? syncope TECHNIQUE: Noncontrast 4.5 mm thick angled axial sections acquired from the foramen magnum to the vertex, with coronal and sagittal reformats. For radiation dose reduction, the following was used: automated exposure control, adjustment of mA and/or kV according to patient size. COMPARISON: [facility], CT, CT HEAD/BRAIN WO CON, 10/23/2020, 2:31. FINDINGS: Image quality: Excellent. CSF spaces: Basal cisterns are patent. No extra-axial fluid collections. The ventricles are symmetric in size and shape. Brain: No intracranial bleeds or masses. There is cerebral volume loss for age, with resultant ventricular and sulcal prominence. There are periventricular and deep white matter chronic small vessel ischemic changes. Old small right inner frontal deep white matter infarct extending minimally to the cortex, old bilateral basal ganglia lacunar infarctions. There is intracranial internal carotid artery atherosclerosis. Skull and face: Calvarium and visualized facial bones appear intact, without suspicious lesions. Sinuses: Visualized sinuses and mastoids are clear. IMPRESSION: 1. No significant interval change since the study from earlier on the same date. 2. Remote infarcts. 3. No evidence acute stroke, hemorrhage, or mass. Dictated by: Humble Franco M.D. on 10/23/2020 at 19:56 Approved by: Humble Franco M.D. on 10/23/2020 at 20:01
--- NOTE | 2020-10-23 19:29 | DI.RAD.S_ITS ---
PROCEDURE: XR CHEST 1V INDICATIONS: dizziness TECHNIQUE: One view of the chest was acquired. COMPARISON: [facility], CR, XR CHEST 1V, 10/23/2020, 2:42. FINDINGS: Surgical changes and devices: None. Lungs and pleura: Lungs are clear. No pleural effusions or pneumothorax. Mediastinum: Mediastinal contours appear normal. Heart size is normal. Bones and chest wall: No suspicious bony lesions. Overlying soft tissues appear unremarkable. IMPRESSION: No evidence acute pulmonary process. Dictated by: Humble Franco M.D. on 10/23/2020 at 19:55 Approved by: Humble Franco M.D. on 10/23/2020 at 19:55
[2020-10-23 20:06] LABS: Add Manual Diff / Slide Review NO; Basophils Absolute Auto 100 /uL (0-100); Basophils Percent Auto 0.9 % (0-2); Eosinophils Absolute Auto 100 /uL (0-450); Eosinophils Percent Auto 1.2 % (2-4); Hematocrit 34.4 % (41-53); Hemoglobin 11.5 g/dL (13.5-17.5); Lymphocytes Absolute Auto 1200 /uL (1100-4500); Mean Corpuscular HGB Conc 33.3 % (30-36); Mean Corpuscular Hemoglobin 32.3 PG (26-34); Mean Corpuscular Volume 96.9 fL (80-100); Monocytes Absolute Auto 600 /uL (0-900); Monocytes Percent Auto 6.9 % (3-14); Neutrophils Absolute Auto 7000 /uL (1500-7000); Platelet Count 182 X10^3/uL (150-400); Red Blood Cell Count 3.55 X10^6/uL (4.5-5.9); White Blood Cell Count 8.9 X10^3/uL (4.5-11.0)
--- NOTE | 2020-10-23 20:08 | ED_ITS ---
HPI - Dizziness General Chief Complaint: Dizziness Stated Complaint: Left Sided Weakness, Keeps Passing Out Time Seen by Provider: 10/23/20 19:28 Source: patient and old records reviewed Mode of arrival: Ambulatory Limitations: no limitations History of Present Illness HPI Narrative: This is an 85-year-old male comes to the emergency department with complaint of dizziness. Patient states he was here last night he had some similar symptoms. He denies any syncope. He does describe almost passing out. He denies any headache. Denies any chest pain or shortness of breath. He states he does feel anxious. He denies any abdominal pain. He denies any nausea and/or vomiting. He has noted that he has had black stools they have been formed he has noted this for 2-3 days. He denies any urinary symptoms. He states today when he was getting out of a car his left leg gave out. He states his legs give out intermittently. He states he has generalized weakness and denies localized weakness. He is unsure if he takes any blood thinners and tells me to refer to his medication list. He does take medication for blood pressure. It appears he takes diclofenac regularly. He denies any prior strokes or heart attacks. Primary care is Dr. Roman. Patient states he had a colonscopy years ago but nothing in the past 5-10 years. Related Data Previous Rx's Medication Instructions Recorded magnesium oxide 420 mg tablet 420 mg PO DAILY #90 tab 05/19/19 atenolol 50 mg tablet 50 mg PO BID #180 tab 11/02/19 tamsulosin 0.4 mg capsule 0.4 mg PO BEDTIME #90 cap 02/18/20 trazodone 50 mg tablet 50 - 100 mg PO HS #180 tab 03/29/20 amlodipine 10 mg tablet 10 mg PO Q DAY #90 tab 05/15/20 diclofenac sodium 100 mg 100 mg PO BID #60 tab 09/22/20 tablet,extended release 24 hr sildenafil (pulm.hypertension) 20 20 - 100 mg PO DAILY PRN #30 tab 10/19/20 mg tablet Allergies Allergy/AdvReac Type Severity Reaction Status Date / Time No Known Drug Allergies Allergy Verified 10/23/20 19:13 Review of Systems Review of Systems ROS Unobtainable: All systems reviewed & are unremarkable except as noted in HPI and below Patient History Medical History Acquired hypothyroidism (09/16/16) Actinic keratosis Basal cell carcinoma 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) Bilateral edema of lower extremity (06/29/15) Bilateral knee pain BPH (benign prostatic hyperplasia) Chronic pain of left knee (11/18/16) Colon polyps Depression (06/29/15) Depression Erectile dysfunction (02/12/16) Erectile dysfunction Essential hypertension (06/29/15) 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) Hemorrhoids Hyperlipemia Hypertension Hyperthyroidism Insomnia Obstructive sleep apnea Osteoarthritis Papules Pedal edema Primary insomnia (09/16/16) Pure hypercholesterolemia (02/12/16) Squamous cell carcinoma Surgical History History of ectropion repair (10/2017) Hx of surgical procedure Family History Family/Other Unknown family medical history Social History Smoking Status: Current every day smoker Smoking Status: Current every day smoker tobacco type: cigarettes alcohol intake frequency: 0-2 drinks per day Substance Use Type: does not use Exam Narrative Exam Narrative: GEN: Elderly male, alert and oriented x 3, patient appears to be in mild distress. Patient does appear pale. Patient able to roll over for guiac. HEENT: Atraumatic, pupils are equal round reactive to light, extraocular movements are intact, nares are clear. HEART: Regular rate and rhythm without murmur, clicks, rubs. No JVD. LUNGS:Lungs clear to auscultation, no wheezes, rales, crackles, chest moves symmetrically ABD:bowel sounds normal, soft, non-tender, no guarding, rebound, rigidity, no masses noted, no hepatosplenomegaly, stool occult is positive and patient has black tarry stool on exam. :No CVA tenderness MSCL: Non-tender, no muscle atrophy, muscles strength 5/5 upper and lower extremities, full range of motion, normal gait NEURO:CN 2-12 intact, sensation normal SKIN: patient has a small 1cm area of erythema on the left buttock just lateral to the gluteal cleft with small amount of skin breakdown. No subcutaneous tissue is exposed. Initial Vital Signs Initial Vital Signs: Vital Signs Temperature 97.5 F L 10/23/20 19:11 Pulse Rate 70 10/23/20 19:11 Respiratory Rate 17 10/23/20 19:11 Blood Pressure 86/49 L 10/23/20 19:11 Pulse Oximetry 98 10/23/20 19:11 Procedures Central Line Placement Right IJ: Time Out Performed: Yes Patient Placed on Monitor/Pulse Ox: Yes MD Prep: mask, gown and gloves Central Line Prep: Povidone-Iodine 1% Local Anesthetic: lidocaine 1% Amount of anesthesia used (mL): 3 Ultrasound Used for Placement: Yes Central Line Lumen Inserted: triple Post Procedure: sutured in place, good blood return, all ports aspirated, flushed, capped and sterile dressing applied Post Procedure X-Ray: tip of catheter in good position and no pneumothorax seen Patient Tolerated Procedure: Well Complications: none Course Orders Ordered: ED Orders 10/23/20 19:29 CT head/brain wo con Stat XR chest 1V Stat EKG-12 Lead Stat 10/23/20 20:00 Complete Blood Count AUTO DIFF Stat Comprehensive Metabolic Panel Stat Lactate (Lactic Acid) Stat Partial Thromboplastin Time Stat Prothrombin Time INR Stat Troponin I Stat 10/23/20 20:30 Hemoglobin and Hematocrit Stat Packed Cells Stat Type and Screen Stat 10/23/20 23:26 XR chest 1V Stat 10/24/20 00:40 COVID19 Stat Discontinued Medications Sodium Chloride (Normal Saline 0.9%) 1,000 mls @ 1,000 mls/hr IV BOLUS ONE Stop: 10/23/20 20:27 Last Infusion: 10/23/20 21:36 Dose: 0 mls/hr Documented by: Admin: 10/23/20 20:31 Dose: 1,000 mls/hr Documented by: MADDIE Norepinephrine Bitartrate 4 mg (/ Dextrose) 254 mls @ 30.48 mls/hr IV TITRATE BHAVIN; Protocol Last Titration: 10/24/20 02:03 Dose: 0 mcg/min, 0 mls/hr Documented by: Titration: 10/24/20 00:49 Dose: 6.56 mcg/min, 25 mls/hr Documented by: Titration: 10/23/20 21:38 Dose: 7.87 mcg/min, 30 mls/hr Documented by: Titration: 10/23/20 21:02 Dose: 10.76 mcg/min, 41 mls/hr Documented by: Admin: 10/23/20 20:55 Dose: 8 mcg/min, 30.48 mls/hr Documented by: MADDIE Pantoprazole Sodium 80 mg/ (Sodium Chloride) 100 mls @ 10 mls/hr IV CONT BHAVIN Last Infusion: 10/24/20 02:05 Dose: 0 mg/hr, 0 mls/hr Documented by: Admin: 10/23/20 20:43 Dose: 8 mg/hr, 10 mls/hr Documented by: MADDIE Sodium Chloride (Normal Saline 0.9%) 1,000 mls @ 200 mls/hr IV CONT BHAVIN Last Infusion: 10/24/20 02:05 Dose: 0 mls/hr Documented by: Admin: 10/24/20 01:36 Dose: 200 mls/hr Documented by: MADDIE Lidocaine HCl (Lidocaine 2% (Urojet) 5 Ml Gel) 5 ml TOP NOW ONE Stop: 10/23/20 23:05 Last Admin: 10/23/20 23:05 Dose: 5 ml Documented by: DAVID Lorazepam (Lorazepam 2 Mg/Ml Inj) 0.5 mg IV NOW ONE Stop: 10/23/20 23:04 Last Admin: 10/23/20 23:00 Dose: 0.5 mg Documented by: DAVID Ondansetron HCl (Ondansetron 4 Mg/2 Ml Inj) 4 mg IV NOW ONE Stop: 10/23/20 20:21 Last Admin: 10/23/20 20:30 Dose: 4 mg Documented by: MADDIE Pantoprazole Sodium (Pantoprazole 40 Mg Vial) 80 mg IV NOW ONE Stop: 10/23/20 20:21 Last Admin: 10/23/20 20:30 Dose: 80 mg Documented by: MADDIE Consultations Consultation #1: Dr. Cardoso from [place]. [facility] and [facility], call to [facility] with bed availability locally. Consultation #2: Dr. Villar, discussed patient's current status. Labs, findings. Patient has improved in terms of pressure but is still requiring pressors. Consultation #3: Dr. Michel with GI, deciding if he should call in team tonight. Time: 01:16 Additional Consultation(s): Dr. Lynch consulted @ 2030, recommends transfer. Discussed patient is unstable at this time. Vital Signs Vital signs: Vital Signs - 8 hr 10/23/20 20:23 10/23/20 20:25 10/23/20 20:30 Temperature Pulse Rate 63 64 65 Respiratory Rate 28 H 27 H 23 Blood Pressure 82/49 L 95/54 L 109/56 L Pulse Oximetry 100 98 97 10/23/20 21:15 10/23/20 21:22 10/23/20 21:25 Temperature 98.1 F Pulse Rate 66 67 70 Respiratory Rate 23 26 H 27 H Blood Pressure 97/55 L 98/50 L 95/51 L Pulse Oximetry 95 94 10/23/20 21:30 10/23/20 21:35 10/23/20 21:40 Temperature 97.6 F Pulse Rate 73 74 66 Respiratory Rate 23 25 H 24 Blood Pressure 99/53 L 106/54 L 96/46 L Pulse Oximetry 95 95 97 10/23/20 21:45 10/23/20 21:50 10/23/20 21:56 Temperature Pulse Rate 72 69 71 Respiratory Rate 24 24 Blood Pressure 95/54 L 92/51 L 98/55 L Pulse Oximetry 98 99 10/23/20 22:05 10/23/20 22:16 10/23/20 22:17 Temperature 97.5 F L Pulse Rate 66 65 66 Respiratory Rate 32 H 22 18 Blood Pressure 84/46 L 102/52 L Pulse Oximetry 100 93 10/23/20 22:18 10/23/20 22:20 10/23/20 22:22 Temperature Pulse Rate 65 67 60 Respiratory Rate 10 L 10 L 22 Blood Pressure 102/52 L 108/53 L Pulse Oximetry 94 95 100 10/23/20 22:25 10/23/20 22:29 10/23/20 22:30 Temperature Pulse Rate 67 67 67 Respiratory Rate 24 6 L 1 L Blood Pressure 98/52 L 100/52 L Pulse Oximetry 95 95 94 10/23/20 22:32 10/23/20 22:35 10/23/20 22:40 Temperature 97.8 F Pulse Rate 66 66 65 Respiratory Rate 22 23 29 H Blood Pressure 121/58 L Pulse Oximetry 94 97 10/23/20 22:45 10/23/20 22:50 10/23/20 22:55 Temperature Pulse Rate 60 63 62 Respiratory Rate 15 23 32 H Blood Pressure 95/48 L Pulse Oximetry 98 96 97 10/23/20 23:00 10/23/20 23:05 10/23/20 23:10 Temperature Pulse Rate 61 64 66 Respiratory Rate 17 14 18 Blood Pressure 121/58 L Pulse Oximetry 96 96 96 10/23/20 23:15 10/23/20 23:17 10/23/20 23:20 Temperature 97.7 F Pulse Rate 66 71 66 Respiratory Rate 6 L 18 23 Blood Pressure 111/55 L 122/56 L Pulse Oximetry 97 96 10/23/20 23:25 10/23/20 23:30 10/23/20 23:35 Temperature Pulse Rate 63 66 66 Respiratory Rate 23 25 H 24 Blood Pressure 118/58 L Pulse Oximetry 98 95 97 10/23/20 23:40 10/23/20 23:45 10/23/20 23:50 Temperature Pulse Rate 63 65 65 Respiratory Rate 19 22 22 Blood Pressure 119/58 L Pulse Oximetry 95 95 96 10/23/20 23:55 10/24/20 00:00 10/24/20 00:15 Temperature Pulse Rate 66 82 64 Respiratory Rate 21 27 H 22 Blood Pressure 115/57 L 133/61 Pulse Oximetry 94 93 97 10/24/20 00:35 10/24/20 00:45 10/24/20 01:00 Temperature Pulse Rate 65 66 63 Respiratory Rate 17 15 22 Blood Pressure 121/59 L 112/55 L 94/55 L Pulse Oximetry 95 97 97 10/24/20 01:20 10/24/20 02:07 Temperature Pulse Rate 66 62 Respiratory Rate 22 18 Blood Pressure 130/60 126/58 L Pulse Oximetry 95 96 MDM - Dizziness Lab Data Attestation: I reviewed the patient's lab results. Result diagrams: 10/23/20 20:30 10/23/20 20:00 Labs: Lab Results 10/23/20 10/23/20 10/23/20 Range/Units 20:00 20:00 20:00 WBC 8.9 (4.5-11.0) X10^3/uL RBC 3.55 L (4.5-5.9) X10^6/uL Hgb 11.5 L (13.5-17.5) g/dL Hct 34.4 L (41-53) % MCV 96.9 (80-100) fL MCH 32.3 (26-34) PG MCHC 33.3 (30-36) % RDW 15.0 H (11.6-14.8) % Plt Count 182 (150-400) X10^3/uL Neut % (Auto) 78.0 H (50-75) % Lymph % (Auto) 13.0 L (25-40) % [place] % (Auto) 6.9 (3-14) % Eos % (Auto) 1.2 L (2-4) % Baso % (Auto) 0.9 (0-2) % Neut # (Auto) 7000 (3741-9573) /uL Lymph # (Auto) 1200 (6666-0047) /uL [place] # (Auto) 600 (0-900) /uL Eos # (Auto) 100 (0-450) /uL Baso # (Auto) 100 (0-100) /uL PT 12.7 (10.1-12.7) SECONDS INR 1.1 (0.9-1.3) APTT 30 (26.4-36.2) SECONDS Sodium 138 (137-145) mmol/L Potassium 4.7 (3.4-5.1) mmol/L Chloride 105 (98-107) mmol/L Carbon Dioxide 29 (22-32) mmol/L BUN 66 H (9-20) mg/dL Creatinine 1.22 (0.66-1.25) mg/dL Estimated GFR 56.5 L (>60) mL/min BUN/Creatinine Ratio 54.1 H (6-22) Glucose 98 (80-110) mg/dL Lactate (0.7-2.1) mmol/L Calcium 8.3 L (8.4-10.2) mg/dL Total Bilirubin 0.4 (0.2-1.3) mg/dL AST 15 L (17-59) IU/L ALT 8 (<50) IU/L Alkaline Phosphatase 51 (38-126) U/L Troponin I < 0.012 (0.01-0.034) ng/mL Total Protein 5.7 L (6.3-8.2) g/dL Albumin 3.0 L (3.5-5.0) g/dL Globulin 2.7 (1.7-4.1) g/dL Albumin/Globulin Ratio 1.1 (1.0-2.8) SARS-CoV-2 (PCR) (Negative) Blood Type Antibody Screen Crossmatch 10/23/20 10/23/20 10/23/20 Range/Units 20:00 20:30 20:30 WBC (4.5-11.0) X10^3/uL RBC (4.5-5.9) X10^6/uL Hgb 10.3 L (13.5-17.5) g/dL Hct 31.5 L (41-53) % MCV (80-100) fL MCH (26-34) PG MCHC (30-36) % RDW (11.6-14.8) % Plt Count (150-400) X10^3/uL Neut % (Auto) (50-75) % Lymph % (Auto) (25-40) % [place] % (Auto) (3-14) % Eos % (Auto) (2-4) % Baso % (Auto) (0-2) % Neut # (Auto) (3329-9590) /uL Lymph # (Auto) (8583-6643) /uL [place] # (Auto) (0-900) /uL Eos # (Auto) (0-450) /uL Baso # (Auto) (0-100) /uL PT (10.1-12.7) SECONDS INR (0.9-1.3) APTT (26.4-36.2) SECONDS Sodium (137-145) mmol/L Potassium (3.4-5.1) mmol/L Chloride (98-107) mmol/L Carbon Dioxide (22-32) mmol/L BUN (9-20) mg/dL Creatinine (0.66-1.25) mg/dL Estimated GFR (>60) mL/min BUN/Creatinine Ratio (6-22) Glucose (80-110) mg/dL Lactate 1.0 (0.7-2.1) mmol/L Calcium (8.4-10.2) mg/dL Total Bilirubin (0.2-1.3) mg/dL AST (17-59) IU/L ALT (<50) IU/L Alkaline Phosphatase (38-126) U/L Troponin I (0.01-0.034) ng/mL Total Protein (6.3-8.2) g/dL Albumin (3.5-5.0) g/dL Globulin (1.7-4.1) g/dL Albumin/Globulin Ratio (1.0-2.8) SARS-CoV-2 (PCR) (Negative) Blood Type B Positive Antibody Screen Negative Crossmatch See Detail 10/24/20 Range/Units 00:40 WBC (4.5-11.0) X10^3/uL RBC (4.5-5.9) X10^6/uL Hgb (13.5-17.5) g/dL Hct (41-53) % MCV (80-100) fL MCH (26-34) PG MCHC (30-36) % RDW (11.6-14.8) % Plt Count (150-400) X10^3/uL Neut % (Auto) (50-75) % Lymph % (Auto) (25-40) % [place] % (Auto) (3-14) % Eos % (Auto) (2-4) % Baso % (Auto) (0-2) % Neut # (Auto) (0617-9707) /uL Lymph # (Auto) (6984-6023) /uL [place] # (Auto) (0-900) /uL Eos # (Auto) (0-450) /uL Baso # (Auto) (0-100) /uL PT (10.1-12.7) SECONDS INR (0.9-1.3) APTT (26.4-36.2) SECONDS Sodium (137-145) mmol/L Potassium (3.4-5.1) mmol/L Chloride (98-107) mmol/L Carbon Dioxide (22-32) mmol/L BUN (9-20) mg/dL Creatinine (0.66-1.25) mg/dL Estimated GFR (>60) mL/min BUN/Creatinine Ratio (6-22) Glucose (80-110) mg/dL Lactate (0.7-2.1) mmol/L Calcium (8.4-10.2) mg/dL Total Bilirubin (0.2-1.3) mg/dL AST (17-59) IU/L ALT (<50) IU/L Alkaline Phosphatase (38-126) U/L Troponin I (0.01-0.034) ng/mL Total Protein (6.3-8.2) g/dL Albumin (3.5-5.0) g/dL Globulin (1.7-4.1) g/dL Albumin/Globulin Ratio (1.0-2.8) SARS-CoV-2 (PCR) Negative (Negative) Blood Type Antibody Screen Crossmatch Imaging Data CT scan - head: Radiologist's Impression: [address] [id number] Scan ReportSigned Patient: Klever George JMR#: [id number]: 5Acct:[id number]/Sex: 85 / MDate of Service: 10/23/20Loc: EDAccession Number: [id number] Procedure: CT head/brain wo con Ordering Provider: Angeles Gerardo D.O. PROCEDURE: CT HEAD/BRAIN WO CON INDICATIONS: dizziness, ? syncope TECHNIQUE: Noncontrast 4.5 mm thick angled axial sections acquired from the foramen magnum to the vertex, with coronal and sagittal reformats. For radiation dose reduction, the following was used: automated exposure control, adjustment of mA and/or kV according to patient size. COMPARISON: [facility], CT, CT HEAD/BRAIN WO CON, 10/23/2020, 2:31. FINDINGS: Image quality: Excellent. CSF spaces: Basal cisterns are patent. No extra-axial fluid collections. The ventricles are symmetric in size and shape. Brain: No intracranial bleeds or masses. There is cerebral volume loss for age, with resultant ventricular and sulcal prominence. There are periventricular and deep white matter chronic small vessel ischemic changes. Old small right inner frontal deep white matter infarct extending minimally to the cortex, old bilateral basal ganglia lacunar infarctions. There is intracranial internal carotid artery atherosclerosis. Skull and face: Calvarium and visualized facial bones appear intact, without suspicious lesions. Sinuses: Visualized sinuses and mastoids are clear. IMPRESSION: 1. No significant interval change since the study from earlier on the same date. 2. Remote infarcts. 3. No evidence acute stroke, hemorrhage, or mass. Dictated by: Humble Franco M.D. on 10/23/2020 at 19:56 Approved by: Humble Franco M.D. on 10/23/2020 at 20:01 Chest x-ray: Radiologist's Impression: [address] [id number] ReportSigned Patient: Klever George JMR#: [id number]: 5Acct:[id number]/Sex: 85 / MDate of Service: 10/23/20Loc: EDAccession Number: [id number] Procedure: XR chest 1V Ordering Provider: Angeles Gerardo D.O. PROCEDURE: XR CHEST 1V INDICATIONS: dizziness TECHNIQUE: One view of the chest was acquired. COMPARISON: [facility], , XR CHEST 1V, 10/23/2020, 2:42. FINDINGS: Surgical changes and devices: None. Lungs and pleura: Lungs are clear. No pleural effusions or pneumothorax. Mediastinum: Mediastinal contours appear normal. Heart size is normal. Bones and chest wall: No suspicious bony lesions. Overlying soft tissues appear unremarkable. IMPRESSION: No evidence acute pulmonary process. Dictated by: Humble Franco M.D. on 10/23/2020 at 19:55 Approved by: Humble Franco M.D. on 10/23/2020 at 19:55 ECG Data Attestation: I personally reviewed and interpreted this ECG as follows: Prior ECG tracings: not available for review Interpretation: Sinus rhythm rate a 67 VA 175 QRS 83 QTC of 408. No ST elevation appreciated. No depression. MDM Narrative Medical decision making narrative: This is an 85-year-old male comes to the emergency department with complaint of dizziness and near-syncope. Further discussion he also has complaint of melena. Stool guaiac is positive. CBC shows a drop in his hemoglobin from 2:30 a.m. to 8:30 p.m. of 13-10. Patient began to become quite anxious and agitated, an episode of hematemesis of bright red blood and his blood pressure dropped to initially 100 systolic and then further to a nathan of 65. Dr. Lynch our general surgeon was consulted and asked that patient be transferred as we have minimal ability for mass transfusion. Patient had been typed and crossed and was given 2 units PRBCs in department, norepinephrine was also started. Protonix 80 mg as well as a drip was begun and patient initially had fluid bolus and later 200 cc per hour after he did not have any urine output. Patient's blood pressure did improve after transfusion of 2 units but he still required pressors. Patient's mentation improved somewhat but he still has some confusion. His code status was verified with his daughter. Patient is full code. Patient had 2 large-bore IVs placed initially, central line was placed in the department. He is a [place] patient and when contacted outside facility was asked to contact his insurance provider 1st. I spoke with Dr. Cardoso and both she and our department contacted several facilities including [facility] and [facility] found a bed at [facility]. Patient has continued to have melanotic stool during his stay. Suspect that his diclofenac may have induced his GI bleed. Spoke with Dr. Villar hospitalist service who accepts if GI is willing to consult and then Dr. Michel from gastroenterology and patient transferred to [facility]. Daughter was updated by nursing staff. Critical Care Time Critical Care Time Critical Care Time: Yes Total Critical Care Time: 135 Attestation: The high probability of a clinically significant, sudden or life threatening deterioration of the [cardiac] system(s) required my full and direct attention, intervention and personal management. The aggregate critical care time was [135] minutes. This time is in addition to time spent performing reported procedures but includes the following: [x] Data Review and interpretation [x] Patient assessment and monitoring of vital signs [x] Documentation [x] Medication orders and management Discharge Plan Departure Patient Disposition: [facility] Clinical Impression: Acute gastrointestinal bleeding Prescriptions: No Action magnesium oxide 420 mg tablet 420 mg PO DAILY Qty: 90 RF: 3 atenolol 50 mg tablet 50 mg PO BID Qty: 180 RF: 3 tamsulosin 0.4 mg capsule 0.4 mg PO BEDTIME Qty: 90 RF: 3 trazodone 50 mg tablet 50 - 100 mg PO HS Qty: 180 RF: 3 amlodipine 10 mg tablet 10 mg PO Q DAY Qty: 90 RF: 3 sildenafil (pulm.hypertension) 20 mg tablet 20 - 100 mg PO DAILY PRN (Reason: sexual activity) Qty: 30 RF: 11 diclofenac sodium 100 mg tablet extended release 24 hr 100 mg PO BID Qty: 60 RF: 11 Referrals: Larry Roman MD [Primary Care Provider] -
[2020-10-23 20:13] LABS: INR 1.1 (0.9-1.3); Prothrombin Time 12.7 SECONDS (10.1-12.7)
[2020-10-23 20:15] LABS: PTT Partial Thromboplastin Tim 30 SECONDS (26.4-36.2)
[2020-10-23 20:17] LABS: Alanine Aminotransferase 8 IU/L (<50); Albumin Globulin Ratio 1.1 (1.0-2.8); Alkaline Phosphatase 51 U/L (38-126); Aspartate Aminotransferase 15 IU/L (17-59); BUN Creatinine Ratio 54.1 (6-22); Bilirubin Total 0.4 mg/dL (0.2-1.3); Blood Urea Nitrogen 66 mg/dL (9-20); Calcium 8.3 mg/dL (8.4-10.2); Carbon Dioxide 29 mmol/L (22-32); Chloride 105 mmol/L (98-107); Estimated Glomerular Filt Rate 56.5 mL/min (>60); Globulin 2.7 g/dL (1.7-4.1); Glucose 98 mg/dL (80-110); HEMOLYSIS < 15 (0-50); Potassium 4.7 mmol/L (3.4-5.1); Sodium 138 mmol/L (137-145); Total Protein 5.7 g/dL (6.3-8.2)
[2020-10-23 20:29] LABS: Troponin I < 0.012 ng/mL (0.01-0.034)
[2020-10-23] MEDS: ONDANSETRON 4 MG/2 ML INJ IV (20:30)
[2020-10-23] MEDS: PANTOPRAZOLE 40 MG VIAL 80 MG IV (20:30)
[2020-10-23] MEDS: LORazepam 2 MG/ML INJ (20:30)
[2020-10-23] MEDS: SODIUM CHLORIDE 0.9% 1,000 ML 1000 ML IV (20:31)
[2020-10-23 20:39] LABS: Hematocrit 31.5 % (41-53); Hemoglobin 10.3 g/dL (13.5-17.5)
[2020-10-23] MEDS: PANTOPRAZOLE 80 MG in SODIUM CHLORIDE 0.9% 100 ML 10 ML IV (20:43)
[2020-10-23] MEDS: NOREPINEPHRINE 4 MG in DEXTROSE 5% IN WATER 250 ML 30.48 ML IV (20:55)
--- NOTE | 2020-10-23 21:23 | PC.NURSE ---
Pt is known to me from his prior visit early this morning. Around 1999, Pt was c/o anxiety, feeling tense, asking for meds to help his anxiety. Denied any history of anxiety throughout his life. Pt became more agitated, wanted to get out of bed, wanted to go home. Dr Gerardo summoned to bedside for eval, rectal exam done that showed guiac (+) stool. Shortly thereafter, pt reported that he needed to have a BM, pt was assisted to bedpan and had large black, loose stool. Pt was cleaned of stool (dime size skin ulcer noted to buttock) and barrier cream applied. Reddened skin irriation also noted to scrotum, nasir area, and skin folds to groin. After sitting up, pt vomited small amount bright red blood. Pt medicated per verbal order with ativan 1mg for agitation as patient was combative with care through this time. Also medicated with protonix IVP, zofran, and fluid bolus started for BP support. Pt's BP dropped to 60's/30's. Norepi drip started at 8mcg/min at 2100 with good effect; BP improved to 95/51. Protonix gtt infusing Pt is now drowsy but arousable. 2nd large bloody stool noted. Verbal consent obtained from pt to give blood products; first unit PRBC's now infusing. Care discussed with Dr Gerardo; plan to keep MAP 60-65, transfer patient to higher level of care.
--- NOTE | 2020-10-23 22:13 | PC.NURSE ---
Pt cleaned of large black stool. Urinary catheter placed per verbal order from Dr Gerardo with return of ~10ml dark urine.
[2020-10-23] MEDS: LORazepam 2 MG/ML INJ 0.5 MG IV (23:00)
[2020-10-23] MEDS: LIDOCAINE 2% (UROJET) 5 ML GEL TOP (23:05)
--- NOTE | 2020-10-23 23:10 | PC.NURSE ---
Central Line placed by Dr. Gerardo in right IJ at 2255. Patient given 0.5mg IV in procedure by verbal order due to level of agitation.
--- NOTE | 2020-10-23 23:26 | DI.RAD.S_ITS ---
PROCEDURE: XR CHEST 1V INDICATIONS: confirm placement of central line TECHNIQUE: One view of the chest was acquired. COMPARISON: [facility], CR, XR CHEST 1V, 10/23/2020, 19:31. FINDINGS: Surgical changes and devices: Right internal jugular central venous catheter tip projecting in the cavoatrial junction. Scattered subsegmental atelectasis and/or scarring. No focal consolidation. No pleural effusions or pneumothorax. Mediastinum: Mediastinal contours appear normal. Heart size is normal. Bones and chest wall: No suspicious bony lesions. Overlying soft tissues appear unremarkable. IMPRESSION: Scattered subsegmental atelectasis and/or scarring. No focal consolidation. Right internal jugular central venous catheter with the tip projecting at the cavoatrial junction. No pneumothorax Dictated by: Tho Mccall M.D. on 10/24/2020 at 8:41 Approved by: Tho Mccall M.D. on 10/24/2020 at 8:45
[2020-10-24] VITALS (7 sets, daily range): BP systolic 94–133; BP diastolic 55–61; PULSE 62–82; RESP 15–27; O2SAT 93–97
--- NOTE | 2020-10-24 00:36 | PC.NURSE ---
Bloody/black stool
--- NOTE | 2020-10-24 00:36 | PC.NURSE ---
Patient had another bloody bowel movement, depends and bed linens changed. Patient removed own 20g LAC IV.
[2020-10-24 00:58] LABS: COVID19 -Nasal RAPID Negative (Negative)
[2020-10-24] MEDS: SODIUM CHLORIDE 0.9% 1,000 ML 200 ML IV (01:36)
--- NOTE | 2020-10-24 01:39 | PC.NURSE ---
Report given to Giselle CHAPPELL at [facility] at this time.
--- NOTE | 2020-10-24 01:43 | PC.NURSE ---
No urine output noted to [place] since placement. Dr Gerardo notified, orders receieved to start maintenance fluids.
== END 2020-10-24 02:25 | disposition short-term general hospital (02) ==
PROVIDERS: Emergency Provider Emergency Medicine; PCP Student in an Organized Health Care Education/Training Program
DX: K92.2 Gastrointestinal hemorrhage, unspecified (principal); F41.9 Anxiety disorder, unspecified; W19.XXXA Unspecified fall, initial encounter; R53.1 Weakness; K92.1 Melena; E86.0 Dehydration; R10.32 Left lower quadrant pain; R11.10 Vomiting, unspecified; Z20.822 Contact with and (suspected) exposure to COVID-19; S09.90XA Unspecified injury of head, initial encounter; R42 Dizziness and giddiness
CPT/HCPCS: 36415; 36430; 36573; 70450; 71045; 73562; 74177; 80053; 82550; 83605; 83690; 84145; 84484; 85014; 85018; 85025; 85610; 85730; 86850; 86900; 86901; 87635; 93005; 96361; 96365; 96366; 96368; 96375; 99284; 99291; 99292; C9803; P9016; C9113; J2060; J2405; Q9967

== ENCOUNTER 2020-11-25 15:41 | Emergency (ER) | payer OTHER, SELFPAY ==
[2020-11-25 16:02] VITALS: BP 159/67; PULSE 73; O2SAT 96
[2020-11-25 16:05] VITALS: BP 159/67; PULSE 69; RESP 26; TEMP 37.5; O2SAT 96
[2020-11-25 16:30] VITALS: BP 136/62; PULSE 71; O2SAT 93
--- NOTE | 2020-11-25 16:30 | DI.RAD.S_ITS ---
PROCEDURE: XR CHEST 1V INDICATIONS: chest pain TECHNIQUE: One view of the chest was acquired. COMPARISON: [facility], CR, XR CHEST 1 VIEW, 11/11/2020, 10:37. [facility], CR, XR CHEST 1V, 10/23/2020, 23:29. FINDINGS: Surgical changes and devices: None. Lungs and pleura: No focal consolidation. No definite pleural effusions or pneumothorax. Mediastinum: Mediastinal contours appear normal. Heart size is normal. Bones and chest wall: No suspicious bony lesions. Overlying soft tissues appear unremarkable. IMPRESSION: No acute cardiopulmonary findings. Dictated by: Yadiel Ramírez M.D. on 11/25/2020 at 16:24 Approved by: Yadiel Ramírez M.D. on 11/25/2020 at 16:28
--- NOTE | 2020-11-25 16:31 | PC.NURSE ---
Reports recent admission/procedure at [facility] for bleeding ulcer. Was told he also has gout. Daughter Cadence reports right wrist was x rayed at that time. Requesting records
--- NOTE | 2020-11-25 16:51 | ED.EXTPRO ---
HPI - Extremity Problem <Kary DO Gino - Last Filed: 11/26/20 07:28> General Chief complaint: Extremity Problem,Nontraumatic Stated complaint: R hand/wrist swelling, reduced ROM,legs bilat pain Time Seen by Provider: 11/25/20 16:32 Source: patient Mode of arrival: Ambulatory Limitations: no limitations History of Present Illness HPI Narrative: Patient is a 85-year-old male who presents with right hand pain ongoing for last few days. He was admitted to [facility] last month after GI bleed and was intubated for about 4 days. Daughter states that he has some noisy breathing sometimes but he denies any chest pain or shortness of breath. He has some erythema of his right hand he apparently was diagnosed with gout in his left knee but has not been getting his gout medication. Both his lower extremities and his right hand are erythematous with scabs. He denies any leg pain. He has been able to get up and walk around with his walker as usual. Not had any fever or chills denies chest pain nausea or vomiting no abdominal pain. Related Data Home Medications Medication Instructions Recorded Confirmed duloxetine 20 mg capsule,delayed 20 mg PO DAILY cap 11/22/20 11/25/20 release thiamine HCl (vitamin B1) 100 mg 100 mg PO DAILY 11/22/20 11/25/20 tablet cholecalciferol (vitamin D3) 50 mcg PO DAILY 11/25/20 11/25/20 cyanocobalamin (vitamin B-12) 1,000 mcg PO DAILY 11/25/20 11/25/20 pantoprazole 40 mg PO BID 11/25/20 11/25/20 Previous Rx's Medication Instructions Recorded magnesium oxide 420 mg tablet 420 mg PO DAILY #90 tab 05/19/19 atenolol 50 mg tablet 50 mg PO BID #180 tab 11/02/19 tamsulosin 0.4 mg capsule 0.4 mg PO BEDTIME #90 cap 02/18/20 trazodone 50 mg tablet 50 - 100 mg PO HS #180 tab 03/29/20 amlodipine 10 mg tablet 10 mg PO Q DAY #90 tab 05/15/20 allopurinol 100 mg tablet 100 mg PO DAILY #30 tab 11/22/20 oxycodone-acetaminophen 7.5 mg-325 1 tab PO TID PRN 14 Days #42 tab 11/24/20 mg tablet cephalexin 500 mg PO QID 7 Days #28 cap 11/25/20 furosemide [Lasix] 20 mg PO DAILY 5 Days tab 11/25/20 Allergies Allergy/AdvReac Type Severity Reaction Status Date / Time No Known Drug Allergies Allergy Verified 11/25/20 16:05 Review of Systems <Kary Christian DO - Last Filed: 11/26/20 07:28> Review of Systems ROS Unobtainable: All systems reviewed & are unremarkable except as noted in HPI and below Constitutional Constitutional: Denies body ache(s), Denies chills, Denies fever(s) and Denies frequent falls ENT Ears, Nose, Mouth, and Throat: Denies dizziness Cardiovascular Cardiovascular: Denies chest pain, Denies syncope, Denies irregular heart rhythm, Denies lightheadedness, Denies palpitations, Denies dyspnea, Denies dyspnea on exertion and Denies orthopnea Respiratory Respiratory: Denies dyspnea and Denies dyspnea on exertion Gastrointestinal Gastrointestinal: Reports as per HPI, Denies abdominal pain, Denies change in bowel habits, Denies diarrhea, Denies nausea and Denies vomiting Musculoskeletal Musculoskeletal: Reports as per HPI, Reports arthralgias, Reports arthralgias and Reports joint swelling Integumentary/Breasts Skin/Breast: Reports lesions (Scabbed lesions over lower extremities and) and Reports rash Neurologic Neurologic: Denies dizziness, Denies syncope and Denies frequent falls Endocrine Endocrine: Denies palpitations Patient History <Kary Christian DO - Last Filed: 11/26/20 07:28> Medical History Acquired hypothyroidism (09/16/16) Actinic keratosis Basal cell carcinoma 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) Bilateral edema of lower extremity (06/29/15) Bilateral knee pain BPH (benign prostatic hyperplasia) Chronic pain of left knee (11/18/16) Colon polyps Depression (06/29/15) Depression Erectile dysfunction (02/12/16) Erectile dysfunction Essential hypertension (06/29/15) 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) Hemorrhoids Hyperlipemia Hypertension Hyperthyroidism Insomnia Obstructive sleep apnea Osteoarthritis Papules Pedal edema Primary insomnia (09/16/16) Pure hypercholesterolemia (02/12/16) Squamous cell carcinoma Surgical History History of ectropion repair (10/2017) Hx of surgical procedure Family History Family/Other Unknown family medical history Social History Smoking Status: Former smoker Smoking Status: Former smoker tobacco type: cigarettes alcohol intake frequency: 0-2 drinks per day Alcohol type: hard liquor Substance Use Type: does not use Exam <Kary Christian DO - Last Filed: 11/26/20 07:28> Initial Vital Signs Initial Vital Signs: Vital Signs Pulse Rate 73 11/25/20 16:02 Blood Pressure 159/67 H 11/25/20 16:02 Pulse Oximetry 96 11/25/20 16:02 GENERAL: Alert pleasant well-appearing 85-year-old male and in no acute distress. HEENT: Head atraumatic,EOMI, pupils reactive, face symmetric, moist mucous membranes CARDIOVASCULAR: Regular rate and rhythm without murmurs, rubs or gallops. RESPIRATORY: Breath sounds equal bilaterally, no wheezes rales or rhonchi. ABDOMEN: Soft, nontender. Normoactive bowel sounds all 4 quadrants. No guarding or rebound. EXTREMITIES: Normal range of motion, no clubbing or edema. Neurovascularly intact NEUROLOGICAL: Alert and oriented x4.Normal gait and speech. SKIN: Right hand is swollen with mild erythema no streaking up the are multiple scabbed areas noted. Lower extremities are also mildly erythematous no significant swelling scabbed lesions noted there as well no ulcers no drainage <Renzo Morel DO - Last Filed: 11/25/20 21:40> Initial Vital Signs Initial Vital Signs: Vital Signs Pulse Rate 73 11/25/20 16:02 Blood Pressure 159/67 H 11/25/20 16:02 Pulse Oximetry 96 11/25/20 16:02 Course <Kary Christian DO - Last Filed: 11/26/20 07:28> Orders Ordered: Discontinued Medications Cefazolin Sodium (Cephalexin 250 Mg Prepack) 1 bottle MIS SEEINSTR ONE Stop: 11/25/20 21:36 Last Admin: 11/25/20 21:38 Dose: 500 mg Documented by: MMERKEL Colchicine (Colchicine 0.6 Mg Tablet) 0.6 mg PO NOW ONE Stop: 11/25/20 19:52 Last Admin: 11/25/20 20:12 Dose: 0.6 mg Documented by: LUAN Hydromorphone HCl (Hydromorphone 0.5 Mg Inj) 0.5 mg IV NOW ONE Stop: 11/25/20 19:52 Last Admin: 11/25/20 20:12 Dose: 0.5 mg Documented by: LUAN Hydromorphone HCl (Hydromorphone 0.5 Mg Inj) 0.5 mg IV NOW ONE Stop: 11/25/20 21:22 Last Admin: 11/25/20 21:36 Dose: 0.5 mg Documented by: ORLIN Vital Signs Vital signs: Vital Signs - 8 hr 11/25/20 16:02 11/25/20 16:05 11/25/20 16:30 Temperature 99.5 F Pulse Rate 73 69 71 Respiratory Rate 26 H Blood Pressure 159/67 H 159/67 H 136/62 Pulse Oximetry 96 96 93 11/25/20 17:00 11/25/20 17:01 Temperature Pulse Rate 74 73 Respiratory Rate Blood Pressure 121/90 Pulse Oximetry 96 96 <Renzo Morel, - Last Filed: 11/25/20 21:40> Course Course Narrative: Patient received in sign-out from day provider. I performed an independent history and physical. I have added some lab work and an ultrasound. Medications to treat discomfort and possible gouty arthritis administered. Orders Ordered: Discontinued Medications Cefazolin Sodium (Cephalexin 250 Mg Prepack) 1 bottle MISC SEEINSTR ONE Stop: 11/25/20 21:36 Last Admin: 11/25/20 21:38 Dose: 500 mg Documented by: ORLIN Colchicine (Colchicine 0.6 Mg Tablet) 0.6 mg PO NOW ONE Stop: 11/25/20 19:52 Last Admin: 11/25/20 20:12 Dose: 0.6 mg Documented by: LUAN Hydromorphone HCl (Hydromorphone 0.5 Mg Inj) 0.5 mg IV NOW ONE Stop: 11/25/20 19:52 Last Admin: 11/25/20 20:12 Dose: 0.5 mg Documented by: KSWANSO Hydromorphone HCl (Hydromorphone 0.5 Mg Inj) 0.5 mg IV NOW ONE Stop: 11/25/20 21:22 Last Admin: 11/25/20 21:36 Dose: 0.5 mg Documented by: ORLIN Vital Signs Vital signs: Vital Signs - 8 hr 11/25/20 16:02 11/25/20 16:05 11/25/20 16:30 Temperature 99.5 F Pulse Rate 73 69 71 Respiratory Rate 26 H Blood Pressure 159/67 H 159/67 H 136/62 Pulse Oximetry 96 96 93 11/25/20 17:00 11/25/20 17:01 Temperature Pulse Rate 74 73 Respiratory Rate Blood Pressure 121/90 Pulse Oximetry 96 96 MDM - Extremity (Nontraumatic) <Kary Christian DO - Last Filed: 11/26/20 07:28> Lab Data Result diagrams: 11/25/20 17:10 11/25/20 17:10 Labs: Lab Results 11/25/20 11/25/20 11/25/20 Range/Units 17:10 17:10 17:10 WBC 9.7 (4.5-11.0) X10^3/uL RBC 3.22 L (4.5-5.9) X10^6/uL Hgb 9.4 L (13.5-17.5) g/dL Hct 28.3 L (41-53) % MCV 88.0 (80-100) fL MCH 29.1 (26-34) PG MCHC 33.1 (30-36) % RDW 15.9 H (11.6-14.8) % Plt Count 183 (150-400) X10^3/uL Neut % (Auto) 78.9 H (50-75) % Lymph % (Auto) 9.0 L (25-40) % [place] % (Auto) 9.0 (3-14) % Eos % (Auto) 2.3 (2-4) % Baso % (Auto) 0.8 (0-2) % Neut # (Auto) 7600 H (5184-9261) /uL Lymph # (Auto) 900 L (1739-0345) /uL [place] # (Auto) 900 (0-900) /uL Eos # (Auto) 200 (0-450) /uL Baso # (Auto) 100 (0-100) /uL ESR (0-15) MM/HR PT 13.6 H (10.1-12.7) SECONDS INR 1.2 (0.9-1.3) APTT 30 (26.4-36.2) SECONDS Sodium 132 L (137-145) mmol/L Potassium 4.1 (3.4-5.1) mmol/L Chloride 99 (98-107) mmol/L Carbon Dioxide 28 (22-32) mmol/L BUN 8 L (9-20) mg/dL Creatinine 0.77 (0.66-1.25) mg/dL Estimated GFR > 60.0 (>60) mL/min BUN/Creatinine Ratio 10.4 (6-22) Glucose 107 (80-110) mg/dL Lactate (0.7-2.1) mmol/L Uric Acid (3.5-8.5) mg/dL Calcium 8.7 (8.4-10.2) mg/dL Total Bilirubin 0.3 (0.2-1.3) mg/dL AST 18 (17-59) IU/L ALT 10 (<50) IU/L Alkaline Phosphatase 88 (38-126) U/L Total Creatine Kinase 28 L (55-170) U/L CK-MB (CK-2) TNP CK-MB (CK-2) Rel Index TNP Troponin I < 0.012 (0.01-0.034) ng/mL NT-Pro-B Natriuret Pep 1060 H (<450) pg/mL Total Protein 6.6 (6.3-8.2) g/dL Albumin 3.1 L (3.5-5.0) g/dL Globulin 3.5 (1.7-4.1) g/dL Albumin/Globulin Ratio 0.9 L (1.0-2.8) Lipase 75 (23-300) U/L Procalcitonin (<0.5) ng/mL 11/25/20 11/25/20 11/25/20 Range/Units 17:10 17:10 17:10 WBC (4.5-11.0) X10^3/uL RBC (4.5-5.9) X10^6/uL Hgb (13.5-17.5) g/dL Hct (41-53) % MCV (80-100) fL MCH (26-34) PG MCHC (30-36) % RDW (11.6-14.8) % Plt Count (150-400) X10^3/uL Neut % (Auto) (50-75) % Lymph % (Auto) (25-40) % [place] % (Auto) (3-14) % Eos % (Auto) (2-4) % Baso % (Auto) (0-2) % Neut # (Auto) (1385-6713) /uL Lymph # (Auto) (8443-6662) /uL [place] # (Auto) (0-900) /uL Eos # (Auto) (0-450) /uL Baso # (Auto) (0-100) /uL ESR 41 H (0-15) MM/HR PT (10.1-12.7) SECONDS INR (0.9-1.3) APTT (26.4-36.2) SECONDS Sodium (137-145) mmol/L Potassium (3.4-5.1) mmol/L Chloride (98-107) mmol/L Carbon Dioxide (22-32) mmol/L BUN (9-20) mg/dL Creatinine (0.66-1.25) mg/dL Estimated GFR (>60) mL/min BUN/Creatinine Ratio (6-22) Glucose (80-110) mg/dL Lactate 1.2 (0.7-2.1) mmol/L Uric Acid (3.5-8.5) mg/dL Calcium (8.4-10.2) mg/dL Total Bilirubin (0.2-1.3) mg/dL AST (17-59) IU/L ALT (<50) IU/L Alkaline Phosphatase (38-126) U/L Total Creatine Kinase (55-170) U/L CK-MB (CK-2) CK-MB (CK-2) Rel Index Troponin I (0.01-0.034) ng/mL NT-Pro-B Natriuret Pep (<450) pg/mL Total Protein (6.3-8.2) g/dL Albumin (3.5-5.0) g/dL Globulin (1.7-4.1) g/dL Albumin/Globulin Ratio (1.0-2.8) Lipase (23-300) U/L Procalcitonin 0.06 (<0.5) ng/mL 11/25/20 Range/Units 17:10 WBC (4.5-11.0) X10^3/uL RBC (4.5-5.9) X10^6/uL Hgb (13.5-17.5) g/dL Hct (41-53) % MCV (80-100) fL MCH (26-34) PG MCHC (30-36) % RDW (11.6-14.8) % Plt Count (150-400) X10^3/uL Neut % (Auto) (50-75) % Lymph % (Auto) (25-40) % [place] % (Auto) (3-14) % Eos % (Auto) (2-4) % Baso % (Auto) (0-2) % Neut # (Auto) (5269-4637) /uL Lymph # (Auto) (7558-5826) /uL [place] # (Auto) (0-900) /uL Eos # (Auto) (0-450) /uL Baso # (Auto) (0-100) /uL ESR (0-15) MM/HR PT (10.1-12.7) SECONDS INR (0.9-1.3) APTT (26.4-36.2) SECONDS Sodium (137-145) mmol/L Potassium (3.4-5.1) mmol/L Chloride (98-107) mmol/L Carbon Dioxide (22-32) mmol/L BUN (9-20) mg/dL Creatinine (0.66-1.25) mg/dL Estimated GFR (>60) mL/min BUN/Creatinine Ratio (6-22) Glucose (80-110) mg/dL Lactate (0.7-2.1) mmol/L Uric Acid 6.6 (3.5-8.5) mg/dL Calcium (8.4-10.2) mg/dL Total Bilirubin (0.2-1.3) mg/dL AST (17-59) IU/L ALT (<50) IU/L Alkaline Phosphatase (38-126) U/L Total Creatine Kinase (55-170) U/L CK-MB (CK-2) CK-MB (CK-2) Rel Index Troponin I (0.01-0.034) ng/mL NT-Pro-B Natriuret Pep (<450) pg/mL Total Protein (6.3-8.2) g/dL Albumin (3.5-5.0) g/dL Globulin (1.7-4.1) g/dL Albumin/Globulin Ratio (1.0-2.8) Lipase (23-300) U/L Procalcitonin (<0.5) ng/mL MDM Narrative Medical decision making narrative: Patient signed out to Dr. Morel labs pending <Renzo Morel DO - Last Filed: 11/25/20 21:40> Lab Data Labs: Lab Results 11/25/20 11/25/20 11/25/20 Range/Units 17:10 17:10 17:10 WBC 9.7 (4.5-11.0) X10^3/uL RBC 3.22 L (4.5-5.9) X10^6/uL Hgb 9.4 L (13.5-17.5) g/dL Hct 28.3 L (41-53) % MCV 88.0 (80-100) fL MCH 29.1 (26-34) PG MCHC 33.1 (30-36) % RDW 15.9 H (11.6-14.8) % Plt Count 183 (150-400) X10^3/uL Neut % (Auto) 78.9 H (50-75) % Lymph % (Auto) 9.0 L (25-40) % [place] % (Auto) 9.0 (3-14) % Eos % (Auto) 2.3 (2-4) % Baso % (Auto) 0.8 (0-2) % Neut # (Auto) 7600 H (2567-2845) /uL Lymph # (Auto) 900 L (2757-4464) /uL [place] # (Auto) 900 (0-900) /uL Eos # (Auto) 200 (0-450) /uL Baso # (Auto) 100 (0-100) /uL ESR (0-15) MM/HR PT 13.6 H (10.1-12.7) SECONDS INR 1.2 (0.9-1.3) APTT 30 (26.4-36.2) SECONDS Sodium 132 L (137-145) mmol/L Potassium 4.1 (3.4-5.1) mmol/L Chloride 99 (98-107) mmol/L Carbon Dioxide 28 (22-32) mmol/L BUN 8 L (9-20) mg/dL Creatinine 0.77 (0.66-1.25) mg/dL Estimated GFR > 60.0 (>60) mL/min BUN/Creatinine Ratio 10.4 (6-22) Glucose 107 (80-110) mg/dL Lactate (0.7-2.1) mmol/L Uric Acid (3.5-8.5) mg/dL Calcium 8.7 (8.4-10.2) mg/dL Total Bilirubin 0.3 (0.2-1.3) mg/dL AST 18 (17-59) IU/L ALT 10 (<50) IU/L Alkaline Phosphatase 88 (38-126) U/L Total Creatine Kinase 28 L (55-170) U/L CK-MB (CK-2) TNP CK-MB (CK-2) Rel Index TNP Troponin I < 0.012 (0.01-0.034) ng/mL NT-Pro-B Natriuret Pep 1060 H (<450) pg/mL Total Protein 6.6 (6.3-8.2) g/dL Albumin 3.1 L (3.5-5.0) g/dL Globulin 3.5 (1.7-4.1) g/dL Albumin/Globulin Ratio 0.9 L (1.0-2.8) Lipase 75 (23-300) U/L Procalcitonin (<0.5) ng/mL 11/25/20 11/25/20 11/25/20 Range/Units 17:10 17:10 17:10 WBC (4.5-11.0) X10^3/uL RBC (4.5-5.9) X10^6/uL Hgb (13.5-17.5) g/dL Hct (41-53) % MCV (80-100) fL MCH (26-34) PG MCHC (30-36) % RDW (11.6-14.8) % Plt Count (150-400) X10^3/uL Neut % (Auto) (50-75) % Lymph % (Auto) (25-40) % [place] % (Auto) (3-14) % Eos % (Auto) (2-4) % Baso % (Auto) (0-2) % Neut # (Auto) (8495-3443) /uL Lymph # (Auto) (9184-2865) /uL [place] # (Auto) (0-900) /uL Eos # (Auto) (0-450) /uL Baso # (Auto) (0-100) /uL ESR 41 H (0-15) MM/HR PT (10.1-12.7) SECONDS INR (0.9-1.3) APTT (26.4-36.2) SECONDS Sodium (137-145) mmol/L Potassium (3.4-5.1) mmol/L Chloride (98-107) mmol/L Carbon Dioxide (22-32) mmol/L BUN (9-20) mg/dL Creatinine (0.66-1.25) mg/dL Estimated GFR (>60) mL/min BUN/Creatinine Ratio (6-22) Glucose (80-110) mg/dL Lactate 1.2 (0.7-2.1) mmol/L Uric Acid (3.5-8.5) mg/dL Calcium (8.4-10.2) mg/dL Total Bilirubin (0.2-1.3) mg/dL AST (17-59) IU/L ALT (<50) IU/L Alkaline Phosphatase (38-126) U/L Total Creatine Kinase (55-170) U/L CK-MB (CK-2) CK-MB (CK-2) Rel Index Troponin I (0.01-0.034) ng/mL NT-Pro-B Natriuret Pep (<450) pg/mL Total Protein (6.3-8.2) g/dL Albumin (3.5-5.0) g/dL Globulin (1.7-4.1) g/dL Albumin/Globulin Ratio (1.0-2.8) Lipase (23-300) U/L Procalcitonin 0.06 (<0.5) ng/mL 11/25/20 Range/Units 17:10 WBC (4.5-11.0) X10^3/uL RBC (4.5-5.9) X10^6/uL Hgb (13.5-17.5) g/dL Hct (41-53) % MCV (80-100) fL MCH (26-34) PG MCHC (30-36) % RDW (11.6-14.8) % Plt Count (150-400) X10^3/uL Neut % (Auto) (50-75) % Lymph % (Auto) (25-40) % [place] % (Auto) (3-14) % Eos % (Auto) (2-4) % Baso % (Auto) (0-2) % Neut # (Auto) (0155-9416) /uL Lymph # (Auto) (3309-4906) /uL [place] # (Auto) (0-900) /uL Eos # (Auto) (0-450) /uL Baso # (Auto) (0-100) /uL ESR (0-15) MM/HR PT (10.1-12.7) SECONDS INR (0.9-1.3) APTT (26.4-36.2) SECONDS Sodium (137-145) mmol/L Potassium (3.4-5.1) mmol/L Chloride (98-107) mmol/L Carbon Dioxide (22-32) mmol/L BUN (9-20) mg/dL Creatinine (0.66-1.25) mg/dL Estimated GFR (>60) mL/min BUN/Creatinine Ratio (6-22) Glucose (80-110) mg/dL Lactate (0.7-2.1) mmol/L Uric Acid 6.6 (3.5-8.5) mg/dL Calcium (8.4-10.2) mg/dL Total Bilirubin (0.2-1.3) mg/dL AST (17-59) IU/L ALT (<50) IU/L Alkaline Phosphatase (38-126) U/L Total Creatine Kinase (55-170) U/L CK-MB (CK-2) CK-MB (CK-2) Rel Index Troponin I (0.01-0.034) ng/mL NT-Pro-B Natriuret Pep (<450) pg/mL Total Protein (6.3-8.2) g/dL Albumin (3.5-5.0) g/dL Globulin (1.7-4.1) g/dL Albumin/Globulin Ratio (1.0-2.8) Lipase (23-300) U/L Procalcitonin (<0.5) ng/mL Imaging Data Extremity x-ray #1: Attestation: I personally reviewed and interpreted this imaging study as follows: Radiologist's Impression: No acute bony abnormality Chest x-ray: Radiologist's Impression: Chart Viewer Diagnostics DATE TYPE STATUS REF RANGE/AUTHOR Hx Today 16:30 Yadiel Ramírez 10/23/20 23:26 Tho Mccall 10/23/20 19:29 Humble Franco 10/23/20 19:29 Ez Francoderic 10/23/20 03:38 Eduardo Kurtz 10/23/20 02:27 Eduardo Kurtz 10/23/20 02:27 Eduardo Kurtz 10/23/20 02:22 Eduardo Kurtz 09/14/16 12:20 08/29/16 16:15 08/07/16 11:24 08/07/16 11:24 ArielKlever Garcia 85, 10/13/1934 [facility], [facility] ED R10 105kg Extremity Problem,Nontraumatic Search Chart No Data to Display Total ONSET 10/201706/29/15 06/29/15 06/29/15 06/29/15 02/12/16 02/12/16 09/16/16 09/16/16 09/16/16 11/18/16 11/18/16 07/30/17 09/19/17 10/16/17 Today 17:01 Klever George 85 M [address] [id number] ReportSigned Patient: Klever George JMR#: [id number]: 5Acct:[id number]/Sex: 85 / MDate of Service: 11/25/20Loc: EDAccession Number: [id number] Procedure: XR chest 1V Ordering Provider: Kary Christian D.O. PROCEDURE: XR CHEST 1V INDICATIONS: chest pain TECHNIQUE: One view of the chest was acquired. COMPARISON: [facility], CR, XR CHEST 1 VIEW, 11/11/2020, 10:37. [facility], CR, XR CHEST 1V, 10/23/2020, 23:29. FINDINGS: Surgical changes and devices: None. Lungs and pleura: No focal consolidation. No definite pleural effusions or pneumothorax. Mediastinum: Mediastinal contours appear normal. Heart size is normal. Bones and chest wall: No suspicious bony lesions. Overlying soft tissues appear unremarkable. IMPRESSION: No acute cardiopulmonary findings. Dictated by: Yadiel Ramírez M.D. on 11/25/2020 at 16:24 Approved by: Yadiel Ramírez M.D. on 11/25/2020 at 16:[address] [facility] Narrative Medical decision making narrative: 85-year-old male presents with many weeks if not a month of gradually worsening right hand and wrist pain, swelling and redness. He denies any injury nor history of the same. He has had no systemic findings such as fever, chills nor nausea or vomiting. He denies any red streaks. Multiple diagnoses considered including DVT, cellulitis, gout. Images were unremarkable. Labs demonstrate increased inflammatory markers, normal uric acid and no elevated white blood cell count. No fluctuance or pain on palp of palm, very low likelihood of abscess. US shows no DVT. Will treat for cellulitis, patient given return precautions. Patient and family understand and agree with diagnosis and plan. [employer] answered to their apparent satisfaction. Discharge Plan Departure Patient Disposition: Home Clinical Impression: Cellulitis of dorsum of hand Instructions: DI for Cellulitis -- Adult Activity Restrictions/Additional Instructions: *You have been diagnosed with [right hand pain, swelling and redness most likely due to cellulitis though blood clot, gout and other were considered. The labs, imaging history would suggest likely infectious cause.] *What to do: *Take medications as directed *Follow up with your primary care provider in 2-3 days, call for an appointment. Let them know you were seen in the Emergency Department and that we ask that you be seen in follow up *Return to ER if you should have any new, worsening or concerning symptoms, such as [fever greater than 101 F, increased swelling or red streaks up your arm, worsening pain or other bothersome symptoms] Prescriptions: New cephalexin 500 mg capsule 500 mg PO QID 7 Days Qty: 28 RF: 0 furosemide [Lasix] 20 mg tablet 20 mg PO DAILY 5 Days RF: 0 No Action magnesium oxide 420 mg tablet 420 mg PO DAILY Qty: 90 RF: 3 atenolol 50 mg tablet 50 mg PO BID Qty: 180 RF: 3 tamsulosin 0.4 mg capsule 0.4 mg PO BEDTIME Qty: 90 RF: 3 trazodone 50 mg tablet 50 - 100 mg PO HS Qty: 180 RF: 3 amlodipine 10 mg tablet 10 mg PO Q DAY Qty: 90 RF: 3 duloxetine 20 mg capsule,delayed release(DR/EC) 20 mg PO DAILY RF: 0 thiamine HCl (vitamin B1) 100 mg tablet 100 mg PO DAILY RF: 0 allopurinol 100 mg tablet 100 mg PO DAILY Qty: 30 RF: 11 oxycodone-acetaminophen 7.5-325 mg tablet 1 tab PO TID PRN (Reason: pain) 14 Days Qty: 42 RF: 0 pantoprazole 40 mg Tablet,Delayed Release (Dr/Ec) 40 mg PO BID RF: 0 cholecalciferol (vitamin D3) 50 mcg (2,000 unit) Tablet 50 mcg PO DAILY RF: 0 cyanocobalamin (vitamin B-12) 1,000 mcg Capsule 1,000 mcg PO DAILY RF: 0 Referrals: Larry Roman MD [Primary Care Provider] -
[2020-11-25 17:00] VITALS: PULSE 74; O2SAT 96
[2020-11-25 17:01] VITALS: BP 121/90; PULSE 73; O2SAT 96
--- NOTE | 2020-11-25 17:09 | DI.RAD.S_ITS ---
PROCEDURE: XR HAND RT MIN 3V INDICATIONS: rght hand pain TECHNIQUE: 3 views of the hand(s) acquired. COMPARISON: [facility], , HAND 3V RIGHT, 08/07/2016, 12:27. [facility], , HAND 3V LEFT, 08/07/2016, 12:28. FINDINGS: Bones: No fractures or dislocations. Carpal bones are normally aligned. Joint space narrowing of the 1st metacarpophalangeal joint and 1st carpometacarpal joint. No suspicious bony lesions. Soft tissues: Stable tiny punctate radiodense foreign body in the soft tissues of the index finger since at least 2015. IMPRESSION: No acute bony abnormality. Degenerative changes of the wrist and thumb. Dictated by: Yadiel Ramírez M.D. on 11/25/2020 at 16:31 Approved by: Yadiel Ramírez M.D. on 11/25/2020 at 16:34
--- NOTE | 2020-11-25 17:30 | PC.NURSE ---
2 unsuccessful IV attempts
[2020-11-25 17:56] LABS: Add Manual Diff / Slide Review NO; Basophils Absolute Auto 100 /uL (0-100); Basophils Percent Auto 0.8 % (0-2); Eosinophils Absolute Auto 200 /uL (0-450); Eosinophils Percent Auto 2.3 % (2-4); Hematocrit 28.3 % (41-53); Hemoglobin 9.4 g/dL (13.5-17.5); Lymphocytes Absolute Auto 900 /uL (1100-4500); Mean Corpuscular HGB Conc 33.1 % (30-36); Mean Corpuscular Hemoglobin 29.1 PG (26-34); Monocytes Absolute Auto 900 /uL (0-900); Neutrophils Absolute Auto 7600 /uL (1500-7000); Neutrophils Percent Auto 78.9 % (50-75); Platelet Count 183 X10^3/uL (150-400); Red Blood Cell Count 3.22 X10^6/uL (4.5-5.9); Red Cell Distribution Width 15.9 % (11.6-14.8); White Blood Cell Count 9.7 X10^3/uL (4.5-11.0)
[2020-11-25 18:22] LABS: INR 1.2 (0.9-1.3); Prothrombin Time 13.6 SECONDS (10.1-12.7)
[2020-11-25 18:24] LABS: PTT Partial Thromboplastin Tim 30 SECONDS (26.4-36.2)
[2020-11-25 18:26] LABS: Alanine Aminotransferase 10 IU/L (<50); Albumin 3.1 g/dL (3.5-5.0); Albumin Globulin Ratio 0.9 (1.0-2.8); Alkaline Phosphatase 88 U/L (38-126); Aspartate Aminotransferase 18 IU/L (17-59); BUN Creatinine Ratio 10.4 (6-22); Bilirubin Total 0.3 mg/dL (0.2-1.3); Blood Urea Nitrogen 8 mg/dL (9-20); Calcium 8.7 mg/dL (8.4-10.2); Carbon Dioxide 28 mmol/L (22-32); Chloride 99 mmol/L (98-107); Creatine Kinase 28 U/L (55-170); Estimated Glomerular Filt Rate > 60.0 mL/min (>60); Globulin 3.5 g/dL (1.7-4.1); Glucose 107 mg/dL (80-110); HEMOLYSIS < 15 (0-50); Lipase 75 U/L (23-300); Potassium 4.1 mmol/L (3.4-5.1); Sodium 132 mmol/L (137-145); Total Protein 6.6 g/dL (6.3-8.2)
[2020-11-25 18:27] LABS: Lactate (Lactic Acid) 1.2 mmol/L (0.7-2.1)
[2020-11-25 18:38] LABS: NT-proBNP (BNP-Adult 18+) 1060 pg/mL (<450); Troponin I < 0.012 ng/mL (0.01-0.034)
[2020-11-25 19:06] LABS: Procalcitonin 0.06 ng/mL (<0.5)
[2020-11-25 19:35] LABS: Uric Acid 6.6 mg/dL (3.5-8.5)
--- NOTE | 2020-11-25 19:51 | DI.US.S_ITS ---
PROCEDURE: US PERIPH VENOUS UP EXTREM RT INDICATIONS: PAIN, SWELLING, AND REDNESS. RECENT HOSPITALIZATION. TECHNIQUE: Real-time imaging, as well as color and pulse Doppler interrogation, was performed of the right upper extremity deep veins from the inferior neck to the antecubital fossa. COMPARISON: None. FINDINGS: The internal jugular vein, visualized portions of the subclavian vein, axillary, and brachial veins are free of intraluminal thrombus. Where physically possible, the veins are normally compressible. Color and pulse Doppler demonstrate normal intraluminal flow, with expected phasicity and pulsatility. Additional scanning of the cephalic and basilic veins of the superficial system demonstrate normal compressibility, without thrombus. IMPRESSION: No deep venous thrombosis in the right upper extremity. No discrepancy in the preliminary report. Dictated by: Yadiel Ramírez M.D. on 11/25/2020 at 21:58 Approved by: Yadiel Ramírez M.D. on 11/25/2020 at 22:01
[2020-11-25 20:02] LABS: Erythrocyte Sedimentation Rate 41 MM/HR (0-15)
[2020-11-25] MEDS: HYDROMORPHONE 0.5 MG INJ IV ×2 (20:12→21:36)
[2020-11-25] MEDS: COLCHICINE 0.6 MG TABLET PO (20:12)
[2020-11-25] MEDS: cephALEXin 250 MG PREPACK 1 BOTTLE MISC (21:38)
[2020-11-25 21:45] VITALS: BP 125/58; PULSE 69; RESP 22; TEMP 37.6; O2SAT 97
[2020-11-26 13:09] LABS: C-Reactive Protein Quant 7.1 mg/dL (<1.0)
== END 2020-11-25 21:49 | disposition home or self-care (01) ==
PROVIDERS: Emergency Medicine; Emergency Provider Emergency Medicine; PCP Student in an Organized Health Care Education/Training Program
DX: L03.113 Cellulitis of right upper limb (principal)
CPT/HCPCS: 36415; 71045; 73130; 80053; 82550; 83605; 83690; 83880; 84145; 84484; 84550; 85025; 85610; 85651; 85730; 86140; 87040; 93005; 93971; 96374; 96376; 99284; J1170

== ENCOUNTER 2020-12-06 10:15 | Observation (INO) | payer OTHER, SELFPAY ==
[2020-12-06] VITALS (20 sets, daily range): BP systolic 129–178; BP diastolic 60–87; PULSE 63–79; RESP 16–36; TEMP 36.5–36.9; O2SAT 74–99; BMI 32.3
--- NOTE | 2020-12-06 10:21 | DI.RAD.S_ITS ---
PROCEDURE: XR CHEST 1V INDICATIONS: chest pain TECHNIQUE: One view of the chest was acquired. COMPARISON: [facility], CR, XR CHEST 1V, 11/25/2020, 16:58. FINDINGS: Surgical changes and devices: None. Lungs and pleura: Lungs are clear. No pleural effusions or pneumothorax. Mediastinum: Mediastinal contours appear normal. Mild cardiomegaly. Bones and chest wall: No suspicious bony lesions. Overlying soft tissues appear unremarkable. IMPRESSION: Mild cardiomegaly. No evidence acute pulmonary process. Dictated by: Humble Franco M.D. on 12/06/2020 at 10:46 Approved by: Humble Franco M.D. on 12/06/2020 at 10:47
--- NOTE | 2020-12-06 10:44 | ED_ITS ---
HPI - Chest Pain General Chief Complaint: Chest Pain Stated Complaint: chest pain, started this morning, l knee collapsed Time Seen by Provider: 12/06/20 10:43 Source: patient Mode of arrival: Wheelchair Limitations: no limitations History of Present Illness HPI narrative: Patient is a 85-year-old male who has a complicated history including recent GI bleed, CVA, hypertension of a recent right wrist cellulitis presenting today with atypical chest pain. He said he woke up this morning and noticed some chest discomfort which he described as pressure. It is nonradiating he denies any shortness of breath with exertion, he does not have any history of coronary artery disease. He is currently not on any anticoa gulation or anti-platelet secondary to recent GI bleed. Denies any fever chills or cough. MD complaint: chest pain Onset (ago): hour(s) Duration: intermittent Pain location: left chest Related Data Home Medications Medication Instructions Recorded Confirmed duloxetine 20 mg capsule,delayed 20 mg PO DAILY cap 11/22/20 12/06/20 release thiamine HCl (vitamin B1) 100 mg 100 mg PO DAILY 11/22/20 12/06/20 tablet cholecalciferol (vitamin D3) 50 mcg PO DAILY 11/25/20 12/06/20 cyanocobalamin (vitamin B-12) 1,000 mcg PO DAILY 11/25/20 12/06/20 pantoprazole 40 mg PO BID 11/25/20 12/06/20 acetaminophen [Tylenol] 500 mg PO PRN PRN 12/06/20 12/06/20 Previous Rx's Medication Instructions Recorded atenolol 50 mg tablet 50 mg PO BID #180 tab 11/02/19 tamsulosin 0.4 mg capsule 0.4 mg PO BEDTIME #90 cap 02/18/20 trazodone 50 mg tablet 50 - 100 mg PO HS #180 tab 03/29/20 amlodipine 10 mg tablet 10 mg PO Q DAY #90 tab 05/15/20 allopurinol 100 mg tablet 100 mg PO DAILY #30 tab 11/22/20 oxycodone-acetaminophen 7.5 mg-325 1 tab PO TID PRN 14 Days #42 tab 11/24/20 mg tablet Allergies Allergy/AdvReac Type Severity Reaction Status Date / Time No Known Drug Allergies Allergy Verified 11/25/20 16:05 Review of Systems Review of Systems ROS Unobtainable: All systems reviewed & are unremarkable except as noted in HPI and below Constitutional Constitutional: Denies chills, Denies fever(s), Denies lethargy and Denies weakness Eyes Eyes: Denies change in vision, Denies eye discharge, Denies irritation and Denies loss of vision Cardiovascular Cardiovascular: Reports as per HPI, Denies dyspnea and Denies dyspnea on exertion Respiratory Respiratory: Denies cough, Denies dyspnea, Denies dyspnea on exertion and Denies wheezing Gastrointestinal Gastrointestinal: Reports as per HPI Genitourinary Genitourinary: Denies urinary hesitancy and Denies urinary incontinence Genitourinary: Denies urinary incontinence and Denies urinary hesitancy Musculoskeletal Musculoskeletal: Reports as per HPI and Reports joint swelling (Previous right wrist swelling now improved) Integumentary/Breasts Skin/Breast: Denies pruritus, Denies erythema, Reports rash (Lower legs are slightly erythematous, but improved according to daughter) and Denies wounds Neurologic Neurologic: Denies loss of vision and Denies weakness Allergic/Immunologic Allergic/Immunologic: Denies wheezing 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) Hemorrhoids Hyperlipemia Hypertension Hyperthyroidism Insomnia Obstructive sleep apnea Osteoarthritis Papules Primary insomnia (09/16/16) Pure hypercholesterolemia (02/12/16) Squamous cell carcinoma Surgical History History of ectropion repair (10/2017) Hx of surgical procedure Family History Family/Other Unknown family medical history Social History household members: none Smoking Status: Former smoker Smoking Status: Former smoker tobacco type: cigarettes alcohol intake frequency: 0-2 drinks per day Alcohol type: hard liquor Substance Use Type: does not use Exam Initial Vital Signs Initial Vital Signs: Vital Signs Temperature 98.4 F 12/06/20 10:15 Pulse Rate 65 12/06/20 10:15 Respiratory Rate 18 12/06/20 10:15 Blood Pressure 144/66 H 12/06/20 10:15 Pulse Oximetry 97 12/06/20 10:15 GENERAL: Alert pleasant 85-year-old male sitting on edge of bed and in no acute distress. HEENT: Head atraumatic,EOMI, pupils reactive, face symmetric, moist mucous membranes CARDIOVASCULAR: Regular rate and rhythm without murmurs, rubs or gallops. RESPIRATORY: Breath sounds equal bilaterally, no wheezes rales or rhonchi. ABDOMEN: Soft, nontender. Normoactive bowel sounds all 4 quadrants. No guarding or rebound. EXTREMITIES: Normal range of motion, no clubbing. +1edema. Neurovascularly intact NEUROLOGICAL: Alert and oriented x4.Normal gait and speech. SKIN: Warm, dry, no laceration, no petechiae, no rashes or lesions. 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) Stat Acetaminophen (Acetaminophen 325 Mg Tablet) 650 mg PO Q6HR PRN PRN Reason: Fever/Mild Pain (1-3) Last Admin: 12/06/20 16:21 Dose: 650 mg Documented by: GPEREZ Allopurinol (Allopurinol 100 Mg Tablet) 100 mg PO DAILY [facility] Amlodipine Besylate (Amlodipine 5 Mg Tablet) 10 mg PO DAILY [facility] Atenolol (Atenolol 50 Mg Tablet) 50 mg PO BID BHAVIN Duloxetine HCl (Duloxetine 20 Mg Capsule) 20 mg PO DAILY [facility]AVIN Magnesium Hydroxide (Magnesium Hydroxide 30 Ml Udc) 30 ml PO DAILY PRN PRN Reason: Constipation Magnesium Oxide (Magnesium Oxide 400 Mg Tablet) 400 mg PO DAILY BHAVIN Naloxone HCl (Naloxone 0.4 Mg/Ml Vial) 0.2 mg IV Q2MIN PRN PRN Reason: Opiate Reversal Ondansetron HCl (Ondansetron 4 Mg/2 Ml Inj) 4 mg IV Q8HR PRN PRN Reason: Nausea And Vomiting Oxycodone/Acetaminophen (Oxycodone/Acetaminophen 7.5/325 Tablet) 1 tab PO TID PRN PRN Reason: pain Pantoprazole Sodium (Pantoprazole 40 Mg Tablet) 40 mg PO BID BHAVIN Tamsulosin HCl (Tamsulosin 0.4 Mg Capsule) 0.4 mg PO BEDTIME BHAVIN Trazodone HCl (Trazodone 50 Mg Tablet) 50 mg PO BEDTIME BHAVIN Discontinued Medications Nitroglycerin (Nitroglycerin 0.4 Mg Sl Tab) 0.4 mg SL NOW ONE Stop: 12/06/20 12:08 Last Admin: 12/06/20 12:22 Dose: 0.4 mg Documented by: CHRISTOPHE Vital Signs Vital signs: Vital Signs - 8 hr 12/06/20 11:18 12/06/20 11:30 12/06/20 12:00 Pulse Rate 63 64 65 Respiratory Rate 22 21 17 Blood Pressure 129/62 131/87 Pulse Oximetry 99 98 97 12/06/20 12:15 12/06/20 12:22 12/06/20 12:30 Pulse Rate 66 66 79 Respiratory Rate 19 33 H Blood Pressure 178/72 H 178/72 H 178/72 H Pulse Oximetry 96 96 12/06/20 12:55 12/06/20 13:00 12/06/20 13:30 Pulse Rate 65 67 66 Respiratory Rate 18 16 28 H Blood Pressure 134/60 132/60 Pulse Oximetry 96 97 74 L 12/06/20 13:31 12/06/20 14:00 12/06/20 14:01 Pulse Rate 66 66 68 Respiratory Rate 36 H 26 H 24 Blood Pressure 160/72 H 154/66 H Pulse Oximetry 93 97 96 MDM - Chest Pain Lab Data Attestation: I reviewed the patient's lab results. Result diagrams: 12/06/20 10:21 12/06/20 10:21 Labs: Lab Results 12/06/20 12/06/20 12/06/20 Range/Units 10:21 10:21 10:21 WBC 6.1 (4.5-11.0) X10^3/uL RBC 3.55 L (4.5-5.9) X10^6/uL Hgb 9.9 L (13.5-17.5) g/dL Hct 30.9 L (41-53) % MCV 86.9 (80-100) fL MCH 27.7 (26-34) PG MCHC 31.9 (30-36) % RDW 16.6 H (11.6-14.8) % Plt Count 345 (150-400) X10^3/uL Neut % (Auto) 67.7 (50-75) % Lymph % (Auto) 17.1 L (25-40) % Porter % (Auto) 10.3 (3-14) % Eos % (Auto) 4.0 (2-4) % Baso % (Auto) 0.9 (0-2) % Neut # (Auto) 4100 (0928-5900) /uL Lymph # (Auto) 1000 L (7281-3886) /uL Porter # (Auto) 600 (0-900) /uL Eos # (Auto) 200 (0-450) /uL Baso # (Auto) 100 (0-100) /uL PT 12.4 (10.1-12.7) SECONDS INR 1.1 (0.9-1.3) APTT 30 (26.4-36.2) SECONDS Sodium 140 (137-145) mmol/L Potassium 4.4 (3.4-5.1) mmol/L Chloride 103 (98-107) mmol/L Carbon Dioxide 30 (22-32) mmol/L BUN 13 (9-20) mg/dL Creatinine 1.02 (0.66-1.25) mg/dL Estimated GFR > 60.0 (>60) mL/min BUN/Creatinine Ratio 12.7 (6-22) Glucose 108 (80-110) mg/dL Calcium 8.8 (8.4-10.2) mg/dL Total Bilirubin < 0.1 L (0.2-1.3) mg/dL AST 39 (17-59) IU/L ALT 18 (<50) IU/L Alkaline Phosphatase 100 (38-126) U/L Total Creatine Kinase 24 L (55-170) U/L CK-MB (CK-2) TNP CK-MB (CK-2) Rel Index TNP Troponin I < 0.012 (0.01-0.034) ng/mL Total Protein 7.5 (6.3-8.2) g/dL Albumin 3.5 (3.5-5.0) g/dL Globulin 4.0 (1.7-4.1) g/dL Albumin/Globulin Ratio 0.9 L (1.0-2.8) Lipase 252 (23-300) U/L SARS-CoV-2 (PCR) (Negative) 12/06/20 12/06/20 Range/Units 13:05 13:17 WBC (4.5-11.0) X10^3/uL RBC (4.5-5.9) X10^6/uL Hgb (13.5-17.5) g/dL Hct (41-53) % MCV (80-100) fL MCH (26-34) PG MCHC (30-36) % RDW (11.6-14.8) % Plt Count (150-400) X10^3/uL Neut % (Auto) (50-75) % Lymph % (Auto) (25-40) % Porter % (Auto) (3-14) % Eos % (Auto) (2-4) % Baso % (Auto) (0-2) % Neut # (Auto) (4833-7673) /uL Lymph # (Auto) (9788-0025) /uL Porter # (Auto) (0-900) /uL Eos # (Auto) (0-450) /uL Baso # (Auto) (0-100) /uL PT (10.1-12.7) SECONDS INR (0.9-1.3) APTT (26.4-36.2) SECONDS Sodium (137-145) mmol/L Potassium (3.4-5.1) mmol/L Chloride (98-107) mmol/L Carbon Dioxide (22-32) mmol/L BUN (9-20) mg/dL Creatinine (0.66-1.25) mg/dL Estimated GFR (>60) mL/min BUN/Creatinine Ratio (6-22) Glucose (80-110) mg/dL Calcium (8.4-10.2) mg/dL Total Bilirubin (0.2-1.3) mg/dL AST (17-59) IU/L ALT (<50) IU/L Alkaline Phosphatase (38-126) U/L Total Creatine Kinase (55-170) U/L CK-MB (CK-2) CK-MB (CK-2) Rel Index Troponin I < 0.012 (0.01-0.034) ng/mL Total Protein (6.3-8.2) g/dL Albumin (3.5-5.0) g/dL Globulin (1.7-4.1) g/dL Albumin/Globulin Ratio (1.0-2.8) Lipase (23-300) U/L SARS-CoV-2 (PCR) Negative (Negative) Imaging Data Chest x-ray: Radiologist's Impression: PROCEDURE: XR CHEST 1V INDICATIONS: chest pain TECHNIQUE: One view of the chest was acquired. COMPARISON: [facility], , XR CHEST 1V, 11/25/2020, 16:58. FINDINGS: Surgical changes and devices: None. Lungs and pleura: Lungs are clear. No pleural effusions or pneumothorax. Mediastinum: Mediastinal contours appear normal. Mild cardiomegaly. Bones and chest wall: No suspicious bony lesions. Overlying soft tissues appear unremarkable. IMPRESSION: Mild cardiomegaly. No evidence acute pulmonary process. Dictated by: Humble Franco M.D. on 12/06/2020 at 10:46 ECG Data Attestation: I personally reviewed and interpreted this ECG as follows: Prior ECG tracings: available for review Interpretation: 1. Artifact noted sinus rhythm rate [address] changes EKG 2. Sinus rhythm rate 67 p.r. interval 166 QRS [address] changes similar MDM Narrative Medical decision making narrative: Does have risk factors in unable to give anticoagulation secondary recent GI bleed. The patient is given nitroglycerin for chest discomfort which seems to have helped his pressure. 1242- Dr. Staples accepts for observation Discharge Plan Departure Patient Disposition: Admitted as Observation Clinical Impression: Atypical chest pain Admit Date/Time: 12/06/20 14:26 Admit Provider: Efren Staples
[2020-12-06 11:00] LABS: Add Manual Diff / Slide Review NO; Basophils Absolute Auto 100 /uL (0-100); Basophils Percent Auto 0.9 % (0-2); Eosinophils Absolute Auto 200 /uL (0-450); Hematocrit 30.9 % (41-53); Hemoglobin 9.9 g/dL (13.5-17.5); Lymphocytes Absolute Auto 1000 /uL (1100-4500); Lymphocytes Percent Auto 17.1 % (25-40); Mean Corpuscular HGB Conc 31.9 % (30-36); Mean Corpuscular Hemoglobin 27.7 PG (26-34); Mean Corpuscular Volume 86.9 fL (80-100); Monocytes Absolute Auto 600 /uL (0-900); Monocytes Percent Auto 10.3 % (3-14); Neutrophils Absolute Auto 4100 /uL (1500-7000); Neutrophils Percent Auto 67.7 % (50-75); Platelet Count 345 X10^3/uL (150-400); Red Blood Cell Count 3.55 X10^6/uL (4.5-5.9); Red Cell Distribution Width 16.6 % (11.6-14.8); White Blood Cell Count 6.1 X10^3/uL (4.5-11.0)
[2020-12-06 11:02] LABS: INR 1.1 (0.9-1.3); Prothrombin Time 12.4 SECONDS (10.1-12.7)
[2020-12-06 11:05] LABS: Alanine Aminotransferase 18 IU/L (<50); Albumin 3.5 g/dL (3.5-5.0); Albumin Globulin Ratio 0.9 (1.0-2.8); Alkaline Phosphatase 100 U/L (38-126); Aspartate Aminotransferase 39 IU/L (17-59); BUN Creatinine Ratio 12.7 (6-22); Blood Urea Nitrogen 13 mg/dL (9-20); Calcium 8.8 mg/dL (8.4-10.2); Carbon Dioxide 30 mmol/L (22-32); Chloride 103 mmol/L (98-107); Creatine Kinase 24 U/L (55-170); Estimated Glomerular Filt Rate > 60.0 mL/min (>60); Glucose 108 mg/dL (80-110); HEMOLYSIS < 15 (0-50); Lipase 252 U/L (23-300); PTT Partial Thromboplastin Tim 30 SECONDS (26.4-36.2); Potassium 4.4 mmol/L (3.4-5.1); Sodium 140 mmol/L (137-145); Total Protein 7.5 g/dL (6.3-8.2)
[2020-12-06 11:06] LABS: Bilirubin Total < 0.1 mg/dL (0.2-1.3)
[2020-12-06 11:16] LABS: Troponin I < 0.012 ng/mL (0.01-0.034)
[2020-12-06] MEDS: NITROGLYCERIN 0.4 MG SL TAB SL (12:22)
[2020-12-06 14:01] LABS: Troponin I < 0.012 ng/mL (0.01-0.034)
[2020-12-06 14:30] LABS: COVID19 - ADMIT (NP swab/PCR) Negative (Negative)
--- NOTE | 2020-12-06 15:13 | P.HP_ITS ---
History of Present Illness History of Present Illness Date Patient Seen: 12/06/20 Time Patient Seen: 14:30 Date of Onset of Symptoms: 12/06/20 Chief complaint: chest pain, started this morning, l knee collapsed Narrative: Patient is an 85-year-old male with history of hypertension, osteoarthritis, GI hemorrhage, multiple CVA presented with complaints of chest pain. Patient states he woke up around 3:30 a.m. and was feeling anxious and no ticed chest pain. It is not clear if the chest pain woke him up but he endorses chronic insomnia. He describes the chest pain as pressure like someone sitting on chest. It was persistent until he arrived in the ED about 10:00 a.m.. Patient got sublingual nitroglycerin and it did eventually resolve in the ED. He denies radiation of the chest pain to the jaw, neck or arms. He denies dyspnea or diaphoresis. Patient states he has had episodic nonexertional chest pains prior to today. He has no prior history of CAD and has not had a prior stress test or echo. He does report a chronic cough with phlegm but denies fevers or change in phlegm color. He denies melena since recent admission for GI bleed. He was admitted to [facility] on October 23 of this year due to hemorrhagic shock from bleeding gastric ulcers associated with NSAID use. He was intubated for a couple of days. In addition, he had acute CVA with appearance of multiple small infarcts in right frontal, parietal and occipital lobes on MRI. Patient was discharged to rehab and has been home for a couple of weeks. His daughter has come from [place] to stay with him temporarily and he also has another daughter who lives down the street. He was diagnosed with moderate cognitive impairment while at rehab. On current ED workup patient is mildly hypertensive. EKG shows sinus rhythm x2 without acute ST/T-wave changes. Chest x-ray shows mild cardiomegaly, no infiltrate. Initial and repeat troponin are negative. Family history unremarkable. He recently quit smoking. 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) Hemorrhoids Hyperlipemia Hypertension Hyperthyroidism Insomnia Obstructive sleep apnea Osteoarthritis Papules Primary insomnia (09/16/16) Pure hypercholesterolemia (02/12/16) Squamous cell carcinoma Surgical History (Updated 12/04/20 @ 08:18 by Larry Roman MD) History of ectropion repair (10/2017) Hx of surgical procedure Family & Social History Family History Family/Other Unknown family medical history Safety & Behavioral: Feels Safe in Current Yes Environment Been Physically Hurt or No Threatened By a Person Tobacco & Substance use: Smoking Status Former smoker alcohol intake frequency 0-2 drinks per day Substance Use Type does not use Meds Home Medications and Allergies Home Medications Medication Instructions Recorded Confirmed Type atenolol 50 mg tablet 50 mg PO BID #180 tab 11/02/19 12/06/20 Rx tamsulosin 0.4 mg capsule 0.4 mg PO BEDTIME #90 cap 02/18/20 12/06/20 Rx trazodone 50 mg tablet 50 - 100 mg PO HS #180 tab 03/29/20 12/06/20 Rx amlodipine 10 mg tablet 10 mg PO Q DAY #90 tab 05/15/20 12/06/20 Rx allopurinol 100 mg tablet 100 mg PO DAILY #30 tab 11/22/20 12/06/20 Rx duloxetine 20 mg capsule,delayed 20 mg PO DAILY cap 11/22/20 12/06/20 History release thiamine HCl (vitamin B1) 100 mg 100 mg PO DAILY 11/22/20 12/06/20 History tablet oxycodone-acetaminophen 7.5 mg-325 1 tab PO TID PRN 14 Days #42 tab 11/24/20 12/06/20 Rx mg tablet cholecalciferol (vitamin D3) 50 mcg PO DAILY 11/25/20 12/06/20 History cyanocobalamin (vitamin B-12) 1,000 mcg PO DAILY 11/25/20 12/06/20 History pantoprazole 40 mg PO BID 11/25/20 12/06/20 History acetaminophen [Tylenol] 500 mg PO PRN PRN 12/06/20 12/06/20 History Allergies Allergy/AdvReac Type Severity Reaction Status Date / Time No Known Drug Allergies Allergy Verified 11/25/20 16:05 Review of Systems Review of Systems Narrative: Chronic knee pain secondary to OA ROS: Yes All systems reviewed with the patient and are negative except as otherwise documented Exam Vital Signs (past 8 hours): - 12/06/20 10:15 12/06/20 11:18 12/06/20 11:30 Temperature 98.4 F Pulse Rate 65 63 64 Respiratory Rate 18 22 21 Blood Pressure 144/66 H 129/62 Pulse Oximetry 97 99 98 12/06/20 12:00 12/06/20 12:15 12/06/20 12:22 Temperature Pulse Rate 65 66 66 Respiratory Rate 17 19 Blood Pressure 131/87 178/72 H 178/72 H Pulse Oximetry 97 96 12/06/20 12:30 12/06/20 12:55 12/06/20 13:00 Temperature Pulse Rate 79 65 67 Respiratory Rate 33 H 18 16 Blood Pressure 178/72 H 134/60 132/60 Pulse Oximetry 96 96 97 12/06/20 13:30 12/06/20 13:31 12/06/20 14:00 Temperature Pulse Rate 66 66 66 Respiratory Rate 28 H 36 H 26 H Blood Pressure 160/72 H Pulse Oximetry 74 L 93 97 12/06/20 14:01 Temperature Pulse Rate 68 Respiratory Rate 24 Blood Pressure 154/66 H Pulse Oximetry 96 Oxygen Delivery Method Room Air Narrative Exam Narrative: General: Alert overweight male who is presently in no acute distress HEENT: Pupils equal and reactive Neck: No lymphadenopathy Lungs: Clear to auscultation Heart: Regular rhythm, no murmur Abdomen: Obese, nontender, no hepatosplenomegaly palpable Extremities: Chronic appearing nonpitting pretibial edema bilaterally Neurological: Affect somewhat irritable, speech fluent, oriented to person and place, no focal deficits Objective Labs Result Diagrams: 12/06/20 10:21 12/06/20 10:21 Labs: Laboratory Results - last 24 hr 12/06/20 12/06/20 12/06/20 10:21 10:21 10:21 WBC 6.1 RBC 3.55 L Hgb 9.9 L Hct 30.9 L MCV 86.9 MCH 27.7 MCHC 31.9 RDW 16.6 H Plt Count 345 Neut % (Auto) 67.7 Lymph % (Auto) 17.1 L Craven % (Auto) 10.3 Eos % (Auto) 4.0 Baso % (Auto) 0.9 Neut # (Auto) 4100 Lymph # (Auto) 1000 L Craven # (Auto) 600 Eos # (Auto) 200 Baso # (Auto) 100 PT 12.4 INR 1.1 APTT 30 Sodium 140 Potassium 4.4 Chloride 103 Carbon Dioxide 30 BUN 13 Creatinine 1.02 Estimated GFR > 60.0 BUN/Creatinine Ratio 12.7 Glucose 108 Calcium 8.8 Total Bilirubin < 0.1 L AST 39 ALT 18 Alkaline Phosphatase 100 Total Creatine Kinase 24 L CK-MB (CK-2) TNP CK-MB (CK-2) Rel Index TNP Troponin I < 0.012 Total Protein 7.5 Albumin 3.5 Globulin 4.0 Albumin/Globulin Ratio 0.9 L Lipase 252 SARS-CoV-2 (PCR) 12/06/20 12/06/20 13:05 13:17 WBC RBC Hgb Hct MCV MCH MCHC RDW Plt Count Neut % (Auto) Lymph % (Auto) Craven % (Auto) Eos % (Auto) Baso % (Auto) Neut # (Auto) Lymph # (Auto) Craven # (Auto) Eos # (Auto) Baso # (Auto) PT INR APTT Sodium Potassium Chloride Carbon Dioxide BUN Creatinine Estimated GFR BUN/Creatinine Ratio Glucose Calcium Total Bilirubin AST ALT Alkaline Phosphatase Total Creatine Kinase CK-MB (CK-2) CK-MB (CK-2) Rel Index Troponin I < 0.012 Total Protein Albumin Globulin Albumin/Globulin Ratio Lipase SARS-CoV-2 (PCR) Negative Assessment & Plan Assessment & Plan narrative: 1. Chest pain, present on admission -patient presenting with non pleuritic chest pain lasting for prolonged. -initial EKGs and troponins are normal -admit to observation, telemetry, serial troponin -Lexiscan stress test if she rules out -transthoracic echo -lipid panel 2. History of GI bleed secondary to peptic ulcer disease -patient with recent hospitalization at [facility] for GI hemorrhage from bleeding ulcer secondary to NSAID use, denies current melena, mildly anemic consistent with recent bleed -continue pantoprazole 40 mg b.i.d. 3. Hypertension, chronic -continue patient's atenolol and amlodipine per home routine 4. Chronic osteoarthritis with opioid dependency -continue Percocet as needed and Tylenol as needed 5. Severe obesity -BMI 33 DVT prophylaxis: SCDs
[2020-12-06] MEDS: ACETAMINOPHEN 325 MG TABLET 650 MG PO (16:21)
--- NOTE | 2020-12-06 16:50 | PC.NURSE ---
Addendum entered by Lula Chang R.N. 12/06/20 21:40: Pt prefers sitting in chair. Tele shows NSR per ICU staff. HL intact/patent. Denies any issues @ this time. Ativan po @ 2100 for sleep. Stress test & ECHO planned for tomorrow. Call light w/in reach, chair alarm on for pt safety. Continue w/plan of care. Original Note: Pt arrived from ED @ 1545 Lungs clear, SpO2 98% RA HL RAC intact. Tele placed, shows NSR per ICU staff. Pt oriented to room & call system. Call light w/in reach, pt sitting in chair by window w/daughter.
[2020-12-06] MEDS: atenoloL 50 MG TABLET PO (20:17)
[2020-12-06] MEDS: PANTOPRAZOLE 40 MG TABLET PO (20:17)
[2020-12-06] MEDS: TAMSULOSIN 0.4 MG CAPSULE PO (20:17)
[2020-12-06] MEDS: TRAZODONE 50 MG TABLET PO (20:17)
[2020-12-06 20:55] LABS: Troponin I < 0.012 ng/mL (0.01-0.034)
[2020-12-06] MEDS: LORazepam 1 MG TABLET PO (21:15)
[2020-12-06] MEDS: OXYCODONE/ACETAMINOPHEN 5/325 TABLET 1.5 TAB PO (22:45)
[2020-12-07] VITALS (8 sets, daily range): BP systolic 128–153; BP diastolic 52–66; PULSE 61–74; RESP 16–18; TEMP 36.3–37.1; O2SAT 92–100
[2020-12-07 06:14] LABS: Troponin I < 0.012 ng/mL (0.01-0.034)
--- NOTE | 2020-12-07 06:57 | PC.NURSE ---
Denies any chest pain & other discomfort all shift. Ambulated in the hallway & was asking for coffee earlier. Informed he can't have any caffeine at this time. Cardiac procedure is scheduled this morning, also informed nothing to eat or drink after 0600. Pt. awake & want to sit in the recliner this morning. Will cont. POC & monitor.
--- NOTE | 2020-12-07 08:59 | CM.DANOTE ---
DCP: Case received, EMR reviewed and met with patient. Introduced self and role. Was able to obtain some information from patient regarding his baseline activity status prior to hospitalization, as well as his current living situation. DCP assessment completed with information currently available. Patient is an 85 year old male who admitted yesterday afternoon to the care of the hospitalist team. PCP: Dr. Roman. Payer: confirmed: [facility]. Patient came to the hospital via private vehicle secondary to having chest pain. Patient has history of GI Bleed, as well as CVA, and was recently released from rehab. Left a message with [facility] to inquire if he was at their facility. Patient is here for a cardiac work up. Met patient in his room. He was sitting up in his chair by his bed, anxious to leave. He resides here in [place], stated that his daughter, Cadence, is currently and temporarily staying with him, but his other daughter, Susanna, lives down the street from him. Patient stated that he is no longer driving, his daughter takes him to appointments if needed. He uses a cane at home. P: DCP to continue to follow and will be available for any needs. He should be able to go home once he is medically cleared. Nicole Rhodes RN/Crutcher Helper
[2020-12-07] MEDS: DULOXETINE 20 MG CAPSULE PO (10:21)
[2020-12-07] MEDS: AMLODIPINE 5 MG TABLET 10 MG PO (10:21)
[2020-12-07] MEDS: MAGNESIUM OXIDE 400 MG TABLET PO (10:21)
[2020-12-07] MEDS: allopurinoL 100 MG TABLET PO (10:21)
[2020-12-07] MEDS: PANTOPRAZOLE 40 MG TABLET PO (10:22)
[2020-12-07] MEDS: ACETAMINOPHEN 325 MG TABLET 650 MG PO (10:23)
[2020-12-07] MEDS: SODIUM CHLORIDE 0.9% FLUSH 10 ML IV (10:28)
--- NOTE | 2020-12-07 12:52 | PC.NURSE ---
Pt A&OX3. LS CTA, BS +x4. VSS, afebrile on RA. Per Atenolol held for lexiscan this a.m. Noted +2-3 edema in B LE's patient states has occured over the past couple weeks. Pt NPO this a.m.Pt denies any Chest pain. Medicated with PRN tylenol for chronic knee pain from arthritis. Ambulating in room today with cane, gait steady. RN clarified with MD Pereyra, no Echo necessary. Awaiting 2nd part of lexiscan. Daughter Agnes updated of schedule.
--- NOTE | 2020-12-07 15:33 | PM.TREADMILL ---
Cardiac Stress Test Report Referral & Results Date Patient Seen: 12/07/20 Time Patient Seen: 15:33 Requesting provider: Efren Staples Indication: chest pain Rest ECG: Sinus rhythm Procedure Note: After Lexiscan injection had minimal dyspnea, no chest discomfort No significant ST changes after Lexiscan injection No ectopy Impression: Normal Lexiscan stress test Please note: Actual ECG tracings can be found in the PACS system.
--- NOTE | 2020-12-07 16:32 | P.DS_ITS ---
History of Present Illness History of Present Illness Date Patient Seen: 12/07/20 Time Patient Seen: 16:32 Chief complaint: chest pain, started this morning, l knee collapsed Narrative: Per Dr. Pepper, Patient is an 85-year-old male with history of hypertension, osteoarthritis, GI hemorrhage, multiple CVA presented with complaints of chest pain. Patient states he woke up around 3:30 a.m. and was feeling anxious and noticed chest daphne n. It is not clear if the chest pain woke him up but he endorses chronic insomnia. He describes the chest pain as pressure like someone sitting on chest. It was persistent until he arrived in the ED about 10:00 a.m.. Patient got sublingual nitroglycerin and it did eventually resolve in the ED. He denies radiation of the chest pain to the jaw, neck or arms. He denies dyspnea or diaphoresis. Patient states he has had episodic nonexertional chest pains prior to today. He has no prior history of CAD and has not had a prior stress test or echo. He does report a chronic cough with phlegm but denies fevers or change in phlegm color. He denies melena since recent admission for GI bleed. He was admitted to [facility] on October 23 of this year due to hemorrhagic shock from bleeding gastric ulcers associated with NSAID use. He was intubated for a couple of days. In addition, he had acute CVA with appearance of multiple small infarcts in right frontal, parietal and occipital lobes on MRI. Patient was discharged to rehab and has been home for a couple of weeks. His daughter has come from [place] to stay with him temporarily and he also has another daughter who lives down the street. He was diagnosed with moderate cognitive impairment while at rehab. On current ED workup patient is mildly hypertensive. EKG shows sinus rhythm x2 without acute ST/T-wave changes. Chest x-ray shows mild cardiomegaly, no infiltrate. Initial and repeat troponin are negative. Family history unremarkable. He recently quit smoking. Discharge Providers Provider Date of admission: 12/06/20 14:26 Discharge Date: 12/07/20 Primary care physician: Larry Roman MD Discharge provider: Cong Pereyra DO Summary Hospital Course Discharge Diagnosis: 1. Chest pain, present on admission 2. History of GI bleed secondary to peptic ulcer disease 3. Hypertension, chronic 4. Chronic osteoarthritis with opioid dependency 5. Obesity, BMI 32.3 Hospital Course: Patient is an 85-year-old male with history of hypertension, osteoarthritis, GI hemorrhage, multiple CVA Who was admitted after an episode of atypical chest pain. Given his extensive risk factors he was admitted for further evaluation for possible cardiac ischemia. EKG did not show any acute ST or T-wave abnormalities indicative of acute ischemia. Troponins were negative. Echocardiogram showed a normal ejection fraction with no wall motion abnorm alities and no significant valvular pathology. Stress testing was deemed low risk. Patient was discharged home, no current medication changes are recommended. Exam Vital Signs (past 8 hours): - 12/07/20 09:14 12/07/20 12:30 12/07/20 16:26 Temperature 97.5 F L 97.4 F L 97.5 F L Pulse Rate 65 66 74 Respiratory Rate 16 16 18 Blood Pressure 153/62 H 128/60 140/66 Pulse Oximetry 95 95 100 Oxygen Delivery Method Room Air Oxygen Flow Rate 0 Narrative Exam Narrative: General: Alert overweight male who is presently in no acute distress HEENT: Pupils equal and reactive Neck: No lymphadenopathy Lungs: Clear to auscultation Heart: Regular rhythm, no murmur Abdomen: Obese, nontender, no hepatosplenomegaly palpable Extremities: Chronic appearing nonpitting pretibial edema bilaterally Neurological: speech fluent, oriented to person and place, no focal deficits Objective Labs Result Diagrams: 12/06/20 10:21 12/06/20 10:21 Labs: Laboratory Results - last 24 hr 12/06/20 12/07/20 20:14 05:20 Troponin I < 0.012 < 0.012 [facility] Medical History Acquired hypothyroidism (09/16/16) Actinic keratosis Basal cell carcinoma 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) Bilateral edema of lower extremity (06/29/15) Bilateral knee pain BPH (benign prostatic hyperplasia) Colon polyps Depression (06/29/15) Depression Erectile dysfunction (02/12/16) Erectile dysfunction Essential hypertension (06/29/15) 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 you had a stress test that was deemed low risk for ischemia. No medication changes are recommended. Discharge orders & Medications Prescriptions: Continued atenolol 50 mg tablet 50 mg PO BID Qty: 180 RF: 3 tamsulosin 0.4 mg capsule 0.4 mg PO BEDTIME Qty: 90 RF: 3 trazodone 50 mg tablet 50 - 100 mg PO HS Qty: 180 RF: 3 amlodipine 10 mg tablet 10 mg PO Q DAY Qty: 90 RF: 3 duloxetine 20 mg capsule,delayed release(DR/EC) 20 mg PO DAILY RF: 0 thiamine HCl (vitamin B1) 100 mg tablet 100 mg PO DAILY RF: 0 allopurinol 100 mg tablet 100 mg PO DAILY Qty: 30 RF: 11 pantoprazole 40 mg Tablet,Delayed Release (Dr/Ec) 40 mg PO BID RF: 0 cholecalciferol (vitamin D3) 50 mcg (2,000 unit) Tablet 50 mcg PO DAILY RF: 0 cyanocobalamin (vitamin B-12) 1,000 mcg Capsule 1,000 mcg PO DAILY RF: 0 acetaminophen [Tylenol] 325 mg Tablet 500 mg PO PRN PRN (Reason: Pain (Scale Score 1-3)) RF: 0 Follow up/Referrals: Larry Roman MD [Primary Care Provider] - Diet/Activity/Treatments Diet: Diet as Tolerated Activity: As tolerated Discharge Data Primary Care Provider: Larry Roman Attending Provider: Efren Staples
--- NOTE | 2020-12-07 19:53 | DI.NM.S_ITS ---
DATE OF SERVICE: 12/07/2020 PROCEDURE PERFORMED: Pharmacologic vasodilator stress and rest myocardial perfusion imaging study with gating to assess ejection fraction and regional wall motion. ORDERING PROVIDER: Dr. Efren Staples. INDICATIONS: The patient is an 85-year-old male with a recent GI bleed, admitted with chest pain. PHARMACOLOGIC VASODILATOR STRESS: Per protocol, 0.4 mg of regadenoson was infused with a normal hemodynamic response. He had no chest discomfort and had slight dyspnea. His resting ECG is normal and there are no ischemic changes with stress. There were no arrhythmias. Per protocol, 24.2 millicuries of technetium-99m Myoview was injected. The patient was imaged 30 minutes later using a gated SPECT acquisition protocol. Earlier in the day while at rest, he was injected with 12.3 millicuries of technetium-99m Myoview and was imaged 30 minutes later, again using a gated SPECT acquisition protocol. FINDINGS: 1. Raw Data:There is fairly good myocardial tracer uptake. On the raw data images, there appears to be some shadowing from the diaphragm although the patient was unable to lie prone to assess for diaphragmatic attenuation. Lung/heart ratio is normal at 0.37 with a normal TID ratio of 1.11. 2. Quantitated gated SPECT: Post-stress ejection fraction is estimated at 73% without any focal wall motion abnormality and specifically the inferior wall has normal contractility. Resting ejection fraction is also 73% with a similar contraction pattern. Resting end-diastolic volume is slightly increased at 128 mL. 3. Myocardial perfusion imaging: Post-stress supine images show a mild perfusion defect in the proximal inferior and inferolateral wall, extending into the mid and distal inferolateral wall in a pattern that would be consistent with diaphragmatic attenuation. Unfortunately, there are no prone images to assess for this. The resting images show an identical perfusion pattern without any areas of improvement. IMPRESSION: 1. Probable normal myocardial perfusion study. 2. Mild fixed inferior and inferolateral perfusion defect, most likely reflecting diaphragmatic attenuation artifact although previous nontransmural infarction cannot be excluded but the absence of any wall motion abnormality in this distribution mitigates against this. There is no evidence for any myocardial ischemia. 3. Normal left ventricular systolic function without any focal wall motion abnormality. Left ventricular volumes are borderline increased. 4. No angina or ECG evidence of ischemia with pharmacologic vasodilator stress. Ariel Klever - /evonne/ doc#: [id number]/job#: [id number] dd: 12/07/2020 16:35:00 dt: 12/07/2020 18:11:00 DICTATING MD/COPIES TO: Justice Saba MD; Efren Staples MD COPIES MNE: ELEN;
== END 2020-12-07 17:29 | disposition home or self-care (01) ==
LOC: ED 10:43 → AC 14:27
PROVIDERS: Admitting Provider Internal Medicine; Emergency Provider Emergency Medicine; Family Provider Student in an Organized Health Care Education/Training Program; PCP Student in an Organized Health Care Education/Training Program; Referring Provider Emergency Medicine; Visit Provider Internal Medicine
DX: R07.9 Chest pain, unspecified (principal); I25.10 Atherosclerotic heart disease of native coronary artery without angina pectoris; G47.33 Obstructive sleep apnea (adult) (pediatric); I10 Essential (primary) hypertension; M19.90 Unspecified osteoarthritis, unspecified site; F11.20 Opioid dependence, uncomplicated; E66.9 Obesity, unspecified; Z68.33 Body mass index [BMI] 33.0-33.9, adult; Z86.73 Personal history of transient ischemic attack (TIA), and cerebral infarction without residual deficits; Z20.822 Contact with and (suspected) exposure to COVID-19
CPT/HCPCS: 36415; 71045; 78452; 80053; 82550; 83690; 84484; 85025; 85610; 85730; 87635; 93005; 93010; 93017; 99284; C9803; G0378; A9502; J2785

== ENCOUNTER 2020-12-08 13:53 | Emergency (ER) | payer OTHER, SELFPAY ==
[2020-12-06 15:52] VITALS: BMI 32.3
[2020-12-08 14:17] VITALS: BP 148/68; PULSE 65; RESP 16; TEMP 37.4; O2SAT 95; BMI 31.9
--- NOTE | 2020-12-08 15:12 | ED.LOWEXIN ---
HPI - Extremity Injury (Lower) General Chief Complaint: Extremity Injury, Lower Stated Complaint: left leg pain Time Seen by Provider: 12/08/20 14:54 Source: patient Mode of arrival: Ambulatory Limitations: no limitations History of Present Illness HPI Narrative: Patient is an 85-year-old male who is here in the emergency department for evaluation of left lower leg pain. He states that it started approximately 0300 hours in the morning. He states that it has continue/worsened since then. He does have lower extremity edema but this is not new for him he is not on diuretics. He states that he does sleep in a chair at night. He has a CPAP which he does not use. He is not having chest pain or shortness of breath. He did have recent hospitalizations for both a cardiac workup and also for a GI bleed. He has a follow-up with his primary doctor the beginning of next week. He states that he did not fall on his leg. He has a history of gout and he states this does not feel like gout. He also recently completed a course of antibiotics for lower extremity cellulitis. Related Data Home Medications Medication Instructions Recorded Confirmed duloxetine 20 mg capsule,delayed 20 mg PO DAILY cap 11/22/20 12/06/20 release thiamine HCl (vitamin B1) 100 mg 100 mg PO DAILY 11/22/20 12/06/20 tablet cholecalciferol (vitamin D3) 50 mcg PO DAILY 11/25/20 12/06/20 cyanocobalamin (vitamin B-12) 1,000 mcg PO DAILY 11/25/20 12/06/20 pantoprazole 40 mg PO BID 11/25/20 12/06/20 acetaminophen [Tylenol] 500 mg PO PRN PRN 12/06/20 12/06/20 Previous Rx's Medication Instructions Recorded atenolol 50 mg tablet 50 mg PO BID #180 tab 11/02/19 tamsulosin 0.4 mg capsule 0.4 mg PO BEDTIME #90 cap 02/18/20 trazodone 50 mg tablet 50 - 100 mg PO HS #180 tab 03/29/20 amlodipine 10 mg tablet 10 mg PO Q DAY #90 tab 05/15/20 allopurinol 100 mg tablet 100 mg PO DAILY #30 tab 11/22/20 furosemide [Lasix] 40 mg PO DAILY #20 tab 12/08/20 Allergies Allergy/AdvReac Type Severity Reaction Status Date / Time No Known Drug Allergies Allergy Verified 11/25/20 16:05 Review of Systems Constitutional Constitutional: Denies fever(s) and Denies headache(s) ENT Ears, Nose, Mouth, and Throat: Denies vertigo, Denies dizziness and Denies headache(s) Cardiovascular Cardiovascular: Denies chest pain and Denies dyspnea Respiratory Respiratory: Denies dyspnea Gastrointestinal Gastrointestinal: Denies abdominal pain Musculoskeletal Comments: Left leg pain Integumentary/Breasts Skin/Breast: Denies pruritus Neurologic Neurologic: Denies vertigo, Denies dizziness and Denies headache(s) Hematologic/Lymphatic On Anticoagulants: No Allergic/Immunologic Allergic/Immunologic: Denies urticaria 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) Hemorrhoids Hyperlipemia Hypertension Hyperthyroidism Insomnia Obstructive sleep apnea Osteoarthritis Papules Primary insomnia (09/16/16) Pure hypercholesterolemia (02/12/16) Squamous cell carcinoma Surgical History History of ectropion repair (10/2017) Hx of surgical procedure Family History Family/Other Unknown family medical history Social History household members: none Smoking Status: Former smoker Smoking Status: Former smoker tobacco type: cigarettes alcohol intake frequency: 0-2 drinks per day Alcohol type: hard liquor Substance Use Type: does not use Exam Initial Vital Signs Initial Vital Signs: Vital Signs Temperature 99.3 F 12/08/20 14:17 Pulse Rate 65 12/08/20 14:17 Respiratory Rate 16 12/08/20 14:17 Blood Pressure 148/68 H 12/08/20 14:17 Pulse Oximetry 95 12/08/20 14:17 Const General: cooperative Limitations: mental status not altered HENPA Head: normal to inspection and normocephalic Cardio Pulses: dorsalis pedis present on the left Skin Other: Patient does have multiple superficial wounds to his left lower extremity that do not appear to be associated with any infections. He has bilateral lower extremity swelling but it is equal both sides. He does have redness on his lower extremities but this is also equal both sides. This is more consistent with a venous stasis rather than a cellulitis. Neuro General: patient alert, patient awake, patient oriented x3 and moves all extremities Gait: normal gait Extrem Other: Lower extremity edema but is equal bilateral. His compartments feel soft. He has tenderness along the anterior lateral aspect of the left tibia and also on the medial aspect of the calf. Psych Appearance: grossly normal and well kempt Course Orders Ordered: ED Orders 12/08/20 15:14 US perip venous low extrem lt Stat Discontinued Medications Furosemide (Furosemide 20 Mg Tablet) 20 mg PO NOW ONE Stop: 12/08/20 16:31 Last Admin: 12/08/20 16:37 Dose: Not Given Documented by: MARY Furosemide (Furosemide 40 Mg Tablet) 40 mg PO NOW ONE Stop: 12/08/20 16:32 Last Admin: 12/08/20 16:40 Dose: 40 mg Documented by: CHRISTOPHE Morphine Sulfate (Morphine 4 Mg/Ml Inj) 4 mg IM NOW ONE Stop: 12/08/20 15:14 Last Admin: 12/08/20 15:22 Dose: 4 mg Documented by: MARY Vital Signs Vital signs: Vital Signs - 8 hr 12/08/20 14:17 Temperature 99.3 F Pulse Rate 65 Respiratory Rate 16 Blood Pressure 148/68 H Pulse Oximetry 95 MDM - Extremity Injury (Lower) Imaging Data US - DVT: Radiologist's Impression: Klever George Jose 85 M 1935 [address] [id number] ReportSigned Patient: Klever George JMR#: [id number]: 5Acct:[id number]/Sex: 85 / MDate of Service: 12/08/20Loc: EDAccession Number: [id number] Procedure: US perip venous low extrem lt Ordering Provider: Raymond Mcgowan D.O. PROCEDURE: PERIP VENOUS LOW EXTREM LT INDICATIONS: eval for LLE DVT TECHNIQUE: Real-time imaging, as well as color and pulse Doppler interrogation, were performed of the lower extremity deep veins from the inguinal ligament to the popliteal fossa. COMPARISON: None. FINDINGS: The common femoral, femoral and popliteal veins are normally compressible, and free of intraluminal thrombus. Color and pulse Doppler demonstrate normal phasic intraluminal flow. There is normal augmentation response to distal compression maneuver. IMPRESSION: No DVT found. Dictated by: Raul Honeycutt M.D. on 12/08/2020 at 15:51 Approved by: Raul Honeycutt M.D. on 12/08/2020 at 15:52 [facility] Narrative Medical decision making narrative: He has not had any trauma and he is ambulatory so I feel fracture is unlikely. I feel we can hold on x-rays. His DVT ultrasound is negative. He does have lower extremity edema with this is equal both sides. He has had edema for some time now. He is not on any diuretics. He does have redness but this is also equal bilateral. I feel this is more of a venous stasis rhythm his cellulitic change. He does have lesions on left leg which appear to be from him picking at his skin. There does not appear to be any cellulitis related with this. He has a history of gout and he states this does not feel like gout. His compartments feel soft. He does not have pain out of proportion. Unsure the exact etiology of his symptoms. Could be related to the swelling that he is having. I could not find a echocardiogram for him in his notes. His last cardiac workup was a new stress test and it was relatively unremarkable. His kidney function is unremarkable. Will start him on Lasix. Was given a 1st dose here in the ER. He will follow-up with his primary doctor next week as scheduled. He was given return precautions and follow-up instructions. He expressed understanding and agreement. Discharge Plan Departure Patient Disposition: Home Clinical Impression: Bilateral edema of lower extremity Instructions: DI for Peripheral Edema -- Bilateral Activity Restrictions/Additional Instructions: We did start you on a medicine called Lasix/furosemide. This is a pill that is going to make you urinate. You were given your 1st dose here in the emergency department. Your next dose will be tomorrow December 07. Keep your appointment with your primary doctor that is already scheduled next week. Continue the rest of your medications as directed. Return to the emergency department for any new or worsening symptoms. Prescriptions: New furosemide [Lasix] 40 mg tablet 40 mg PO DAILY Qty: 20 RF: 0 No Action atenolol 50 mg tablet 50 mg PO BID Qty: 180 RF: 3 tamsulosin 0.4 mg capsule 0.4 mg PO BEDTIME Qty: 90 RF: 3 trazodone 50 mg tablet 50 - 100 mg PO HS Qty: 180 RF: 3 amlodipine 10 mg tablet 10 mg PO Q DAY Qty: 90 RF: 3 duloxetine 20 mg capsule,delayed release(DR/EC) 20 mg PO DAILY RF: 0 thiamine HCl (vitamin B1) 100 mg tablet 100 mg PO DAILY RF: 0 allopurinol 100 mg tablet 100 mg PO DAILY Qty: 30 RF: 11 pantoprazole 40 mg Tablet,Delayed Release (Dr/Ec) 40 mg PO BID RF: 0 cholecalciferol (vitamin D3) 50 mcg (2,000 unit) Tablet 50 mcg PO DAILY RF: 0 cyanocobalamin (vitamin B-12) 1,000 mcg Capsule 1,000 mcg PO DAILY RF: 0 acetaminophen [Tylenol] 325 mg Tablet 500 mg PO PRN PRN (Reason: Pain (Scale Score 1-3)) RF: 0 Referrals: Larry Roman MD [Primary Care Provider] -
[2020-12-08] MEDS: MORPHINE 4 MG/ML INJ IM (15:22)
[2020-12-08] MEDS: FUROSEMIDE 40 MG TABLET PO (16:40)
== END 2020-12-08 16:52 | disposition home or self-care (01) ==
PROVIDERS: Emergency Provider Emergency Medicine; Family Provider Student in an Organized Health Care Education/Training Program; PCP Student in an Organized Health Care Education/Training Program
DX: R60.0 Localized edema (principal)
CPT/HCPCS: 93971; 96372; 99283; 99284; J2270

== ENCOUNTER 2020-12-13 09:12 | Outpatient (RCR) | payer OTHER, SELFPAY ==
[2020-12-06 15:52] VITALS: BMI 32.3
--- NOTE | 2020-12-13 17:52 | ST.OPIE ---
Visit Care Team Role Provider Type Larry Roman MD Attending Provider Physician Family Provider Primary Care Provider Referring Provider Specialty: Internal Medicine Address: [address] [place] [address], [address], [address] Email: [email or web address] Speech-Language Pathology Initial Evaluation PSYCHOLOGICAL STRESS EVALUATOR Adult Cognitive Linguistic Eval Start: 12/13/20 16:59 Freq: Status: Active Protocol: Document 12/13/20 16:59 MARYLU (Rec: 12/13/20 17:52 MARYLU [email or web address]) Adult Cognitive Linguistic Evaluation Session Time Visit Start Time 09:30 Visit Stop Time 10:15 Total Visit Minutes 45 Visit Information Visit Number Initial Evaluation Plan of Care Dates 12/13/20 - 03/14/21 Insurance Information Medicare Referral Referring Provider Dr. Larry Roman Reason for Referral Other s/sx involving cognitive function & awareness Setting Assessment Location Outpatient Care Visit Type Note Type Initial evaluation Next Note Type Next Note Type Treatment Note Patient Information Identification Type Name,ID Card Medical History The pt is an 85-yr-old male who attends for evaluation and treatment as indicated for cognitive decline. The pt was recently hospitalized () d/t chest pain and has presented to ED x4 since 10/23 for various lower extremity pain. PMHx is significant for multiple CVAs/ TIAs. The pt's daughter, Agnes , reported diagnosis of dementia, although that is not found in medical records. The pt currently lives alone, although his daughter, who lives in [place], is staying with him until his health stabilizes, at which point she intends to return to [place] with him so he can visit family. She stated that his living arrangements after that are undecided. 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 The pt was a poor historian who repeatedly fell asleep and awakened throughout the session. He did maintain alertness during formal assessment and was participatory in conversation between dozing. He and his daughter report this napping is normal and happens consistently throughout the day and much of the night. When asked if he had seen a sleep doctor, the pt responded , No, I won't waste my time. I sleep when I want to. The pt denied cognitive/memory problems as well as any goals for therapy, stating, I'm completely satisfied with my life and how I live it. I've simplified my life. I realize I'm getting older. His daughter expressed concern of the pt's desire to drive; however, the pt denied wanting to drive. She further expressed concern of the pt's memory and ability to live alone. Assessment Oral Motor Examination Completed No Informal Assessment Receptive Language Normal Yes: Impacted by memory Expressive Language Normal Yes Pragmatic Language Normal Yes Speech Normal Yes Cognition Normal No Cognitive Impairment(s) Attention,Short-term memory, Executive functioning,Problem solving,Reasoning,Thought organization Formal Assessment Standardized Test/Screener Type [facility] Status ([facility]) Administration Complete Results Total Score: 18/30 Pt was oriented to day, year and state. Immediate recall: 2/5 objects Delayed recall: 2/5 objects Simple Math: Incorrect addition; correct subtraction Categorical Naming: Named 15 animals in 60 sec Mental Flexibility: Able to reverse 2-digit numbers only. Upon presentation of 3-digit number, the pt considered and then responded, Forget it. Waste of my time. I'm not interested. Clock Drawing: All numbers included, spaced and oriented correctly; 2 hands of different lengths extend from near center of [place]; time reading 11:12 (vs 11:10). Visuospatial: Correctly placed X in triangle and identified largest of 3 objects. Story Comprehension/Recall: Answered 2/4 questions correctly, including correct state that the characters lived in, when in the story only the city is named. Findings/Results Language Function Within normal limits Cognitive Function Moderately impaired Findings The pt scored below normal in [facility] Examination, score is consistent with dementia. The pt exhibited deficits primarily in memory and mental flexibility tasks. He was quick to abandon tasks that were challenging. Throughout the assessment and in conversation, the pt expressed little to no awareness or concern of deficits or motivation to improve skills. Cognitive Communication Deficits Self-awareness of Cognitive- Limited awareness (minimal Communication Deficits appreciation without specificity) Concomitant Factors Concomitant Factors Hearing loss Impact on Functioning Activity Limits/Particip.Rest. Mod: Household Tasks Sev: General Tasks and Demands Interpersonal Interactions Community Safety Risks Mod: Being Left Alone at Home Sev: Reacting to Emergency Managing Medication Traveling Alone in Community Prognosis Prognosis Fair Based on Family support,Other (comment) Comment Pt expresses no motivation to improve skills Plan of Care Speech-Language Treatment Yes Frequency 1x/wk Duration up to 5 visits Patient/Caregiver Education Described results of evaluation,Patient expressed understanding of evaluation, Patient expressed agreement with goals and treatment plans ,Family/caregivers expressed agreement with goals and treatment plan,Patient requires further education/ training,Family/caregivers require further education/ training Short Term Goals 1. The pt and his primary caregiver(s) will participate in development of external modifications and memory tools to increase/maintain the pt's highest level of independence . Iuss Analyst Goals 1. Using external memory tools as needed with minimal assistance, the pt will maintain highest level of independence possible for safest and least restrictive environment.
--- NOTE | 2021-02-12 16:03 | ST.OPDS ---
Visit Care Team Role Provider Type Larry Roman MD Attending Provider Physician Family Provider Primary Care Provider Referring Provider Address: [address] [place] [address], [address], [place], [address] DEVELOPMENT REP Treatment Note DEVELOPMENT REP Treatment Note Start: 12/13/20 16:59 Freq: Status: Active Protocol: Document 02/12/21 16:00 MARYLU (Rec: 02/12/21 16:02 MARYLU [id number]) Speech Pathology Treatment Note Visit Information Plan of Care Dates 12/13/20 - 03/14/21 Insurance Information Medicare Setting Treatment Setting Outpatient Care Visit Type Note Type Discharge Summary Subjective Observations/Patient Presentation Pt's daughter called 12/20/20 and stated that her father did not wish to continue speech therapy and requested discharge from services. Dtr requested to talk to DEVELOPMENT REP. DEVELOPMENT REP attempted x2 to return her call but did not reach her and was unable to leave VM d/t a full mailbox. Chief Complaint(s) Cognitive Objective Short Term Goals GOALS NOT MET 1. The pt and his primary caregiver(s) will participate in development of external modifications and memory tools to increase/maintain the pt's highest level of independence . Commercial Account Officer Goals 1. Using external memory tools as needed with minimal assistance, the pt will maintain highest level of independence possible for safest and least restrictive environment. Plan Therapy Recommendations Discharge from Speech Therapy
== END 2021-02-13 08:19 | disposition home or self-care (01) ==
LOC: SP 09:12
PROVIDERS: Family Provider Student in an Organized Health Care Education/Training Program; PCP Student in an Organized Health Care Education/Training Program; Referring Provider Student in an Organized Health Care Education/Training Program; Visit Provider Student in an Organized Health Care Education/Training Program
DX: R41.89 Other symptoms and signs involving cognitive functions and awareness (principal)
CPT/HCPCS: 92523

== ENCOUNTER → 2020-12-28 11:01 | Outpatient (CLI) | payer MEDICARE, SELFPAY ==
[2020-12-06 15:52] VITALS: BMI 32.3
[2020-12-28] MEDS: COVID-19 VACC #1, MRNA(MOD) 100 MCG/0.5 ML VIAL IM (11:11)
== END ==
PROVIDERS: Family Provider Student in an Organized Health Care Education/Training Program; PCP Student in an Organized Health Care Education/Training Program; Visit Provider Internal Medicine
DX: Z23 Encounter for immunization (principal)
CPT/HCPCS: 0011A; 91301

== ENCOUNTER 2021-01-01 06:39 | Observation (INO) | payer OTHER, SELFPAY ==
[2020-12-06 15:52] VITALS: BMI 32.3
[2021-01-01] VITALS (17 sets, daily range): BP systolic 124–156; BP diastolic 57–72; PULSE 67–78; RESP 16–20; TEMP 36.8–37.5; O2SAT 69–99; BMI 31.9
--- NOTE | 2021-01-01 07:06 | ED.EXTPRO ---
HPI - Extremity Problem General Chief complaint: Extremity Problem,Nontraumatic Stated complaint: Joint pain Time Seen by Provider: 01/01/21 07:05 Source: patient and EMS Mode of arrival: EMS Limitations: no limitations History of Present Illness HPI Narrative: 85-year-old male former smoker with history of hypertension, gout, atypical chest pain presents with daughter by EMS for evaluation of multiple complaints. Over the past few days he has become increasingly weak and short of breath. This morning he was unable to stand on his own due to this weakness. He has had no fever or chills and denies any chest pain. He is frequently short of breath but complains it has been worse and probably worsened by lying flat. He has had increased pain and swelling in his bilateral lower extremities. He has had no nausea, vomiting or diarrhea. He denies any dysuria, frequency or urgency. He denies any injury, falls or trauma. He denies any medication change, states he has had no diuretics for the past few weeks. MD Complaint: extremity pain and extremity swelling Onset (ago): day(s) Pain Consistency: constant Location: right Quality: stabbing and aching Radiation: none Relieving factors: rest Exacerbating factors: range of motion, weight bearing and walking Associated symptoms: denies other symptoms Related Data Home Medications Medication Instructions Recorded Confirmed cholecalciferol (vitamin D3) 50 mcg PO DAILY 11/25/20 01/01/21 acetaminophen 650 mg PO Q4H PRN 01/01/21 01/01/21 allopurinol 100 mg PO DAILY 01/01/21 01/01/21 amlodipine 10 mg PO DAILY 01/01/21 01/01/21 atenolol 50 mg PO BID 01/01/21 01/01/21 doxepin 10 mg PO QPM 01/01/21 01/01/21 hydrocodone-acetaminophen 1 tab PO PRN PRN 01/01/21 01/01/21 lactobacillus combination no.8 3,000 mmu cells PO DAILY 01/01/21 01/01/21 [Adult Probiotic] [id number]-[id number] 1 tab PO DAILY 01/01/21 01/01/21 [Centrum Silver] pantoprazole 40 mg PO BID 01/01/21 01/01/21 tamsulosin [Flomax] 0.4 mg PO BEDTIME 01/01/21 01/01/21 trazodone 50 mg PO BEDTIME 01/01/21 01/01/21 Allergies Allergy/AdvReac Type Severity Reaction Status Date / Time No Known Drug Allergies Allergy Verified 12/12/20 16:31 Review of Systems Constitutional Constitutional: Denies chills, Reports fatigue, Denies fever(s), Denies frequent falls, Denies lethargy and Reports weakness Eyes Eyes: Denies change in vision, Denies eye discharge, Denies irritation and Denies loss of vision ENT Ears, Nose, Mouth, and Throat: Denies change in voice, Denies dizziness, Denies neck pain, Denies sore throat and Denies throat swelling Cardiovascular Cardiovascular: Denies chest pain, Denies irregular heart rhythm, Denies lightheadedness, Denies palpitations, Reports dyspnea, Denies dyspnea on exertion and Reports orthopnea Respiratory Respiratory: Denies cough, Reports dyspnea, Denies dyspnea on exertion and Denies wheezing Gastrointestinal Gastrointestinal: Denies abdominal pain, Denies change in bowel habits, Denies diarrhea, Denies nausea and Denies vomiting Musculoskeletal Musculoskeletal: Reports limited range of motion, Denies neck pain and Denies numbness Integumentary/Breasts Skin/Breast: Denies pruritus, Denies erythema, Denies rash and Denies wounds Neurologic Neurologic: Denies behavioral changes, Denies confusion, Denies dizziness, Denies frequent falls, Denies loss of vision, Denies numbness and Reports weakness Psychiatric Psychiatric: Denies anxiety, Denies behavioral changes, Denies confusion, Denies depression, Denies homicidal ideation and Denies suicidal ideation Endocrine Endocrine: Reports fatigue, Denies flushing and Denies palpitations Hematologic/Lymphatic Hematologic/Lymphatic: Denies easy bruising Allergic/Immunologic Allergic/Immunologic: Denies urticaria, Denies throat swelling and Denies wheezing 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) Hemorrhoids Hyperlipemia Hypertension Hyperthyroidism Insomnia Obstructive sleep apnea Osteoarthritis Papules Primary insomnia (09/16/16) Pure hypercholesterolemia (02/12/16) Squamous cell carcinoma Surgical History History of ectropion repair (10/2017) Hx of surgical procedure Family History Family/Other Unknown family medical history Social History household members: family Smoking Status: Former smoker Smoking Status: Former smoker tobacco type: cigarettes alcohol intake frequency: 0-2 drinks per day Alcohol type: hard liquor Substance Use Type: does not use Exam Narrative Exam Narrative: GENERAL: [85] year old patient appears stated age. Well-nourished, well-developed patient, in mild distress. Ill-appearing, resting with eyes closed HEAD: Atraumatic. Normocephalic. EYES: Pupils equal round and reactive. Extraocular motions intact. No scleral icterus. No injection or drainage. ENT: Dry mucous membranes. Nose without bleeding, purulent drainage. Throat without erythema, tonsillar hypertrophy or exudate. Airway patent. NECK: Trachea midline. Non tender CARDIOVASCULAR: Regular rate and rhythm without murmurs, gallops, or rubs. RESPIRATORY: Crackles in bilateral bases, improves at the apices GASTROINTESTINAL: Abdomen soft, non-tender, nondistended. EXTREMITIES: 2+ pitting edema right lower extremity below the knee, full, painless range of motion of right knee. Left knee with painful range of motion, no redness, warmth or obvious effusion. BACK: Nontender without deformity or crepitance. No flank tenderness. NEURO: AOx3. SKIN: Early sacral decubitus ulcers noted bilaterally. Poor skin turgor. Otherwise no rash or erythema of visible areas Initial Vital Signs Initial Vital Signs: Vital Signs Pulse Rate 71 01/01/21 06:50 Respiratory Rate 16 01/01/21 06:50 Blood Pressure 145/66 H 01/01/21 06:50 Pulse Oximetry 95 01/01/21 06:50 Course Course Course Narrative: patient has been seen and evaluated by Physical Therapy who agrees that patient is unable to be safely discharged home as he is too weak and having too much pain to stand, walk, or transfer. His inflammatory markers are elevated but there is no physical exam finding to suggest septic arthritis, gouty arthritis or DVT. Patient is significantly weak with dry mucous membranes hospitalization for stabilization of his condition Orders Ordered: ED Orders 01/01/21 07:58 XR chest 1V Stat EKG-12 Lead Stat 01/01/21 09:03 COVID19 - ADMIT (INFORMATION SYSTEMS PROJECT MANAGER swab/PCR) Stat 01/01/21 09:15 Basic Metabolic Panel Stat C-Reactive Protein Quant Stat Complete Blood Count AUTO DIFF Stat Erythrocyte Sedimentation Rate Stat NT-proBNP (BNP-Adult 18+) Stat Troponin & CK Cardiac Panel Stat Uric Acid Stat 01/01/21 10:11 US periph venous low extrem rt Stat 01/01/21 10:14 Consult to Physical Therapy Evaluate & Treat 01/01/21 10:43 UA Complete [Urinalysis and Microscopic] Stat Urine Culture Stat Acetaminophen (Acetaminophen 325 Mg Tablet) 650 mg PO Q6HR PRN PRN Reason: Fever/Mild Pain (1-3) Hydrocodone Bitart/Acetaminophen (Hydrocodone/Acet 5/325 Tablet) 1 tab PO Q4HR PRN PRN Reason: Pain, Moderate (4-6) Enoxaparin Sodium (Enoxaparin 40 Mg/0.4 Ml Syringe) 40 mg SUBCUT DAILY BHAVIN Naloxone HCl (Naloxone 0.4 Mg/Ml Vial) 0.2 mg IV Q2MIN PRN PRN Reason: Opiate Reversal Ondansetron HCl (Ondansetron 4 Mg/2 Ml Inj) 4 mg IV Q8HR PRN PRN Reason: Nausea And Vomiting Discontinued Medications Furosemide (Furosemide 40 Mg/4 Ml Vial) 40 mg IV NOW ONE Stop: 01/01/21 08:36 Last Admin: 01/01/21 08:48 Dose: 40 mg Documented by: HEIDI Vital Signs Vital signs: Vital Signs - 8 hr 01/01/21 08:00 01/01/21 09:38 01/01/21 10:00 Pulse Rate 68 69 73 Respiratory Rate Blood Pressure 124/57 L Pulse Oximetry 94 93 97 01/01/21 10:30 01/01/21 11:00 01/01/21 11:13 Pulse Rate 72 70 76 Respiratory Rate 20 Blood Pressure Pulse Oximetry 96 97 98 01/01/21 11:15 01/01/21 11:31 Pulse Rate Respiratory Rate Blood Pressure 156/68 H 141/63 H Pulse Oximetry MDM - Extremity (Nontraumatic) Lab Data Result diagrams: 01/01/21 09:15 01/01/21 09:15 Labs: Lab Results 01/01/21 01/01/21 01/01/21 Range/Units 09:03 09:15 09:15 WBC 13.4 H (4.5-11.0) X10^3/uL RBC 3.59 L (4.5-5.9) X10^6/uL Hgb 9.5 L (13.5-17.5) g/dL Hct 29.4 L (41-53) % MCV 82.0 (80-100) fL MCH 26.6 (26-34) PG MCHC 32.4 (30-36) % RDW 18.1 H (11.6-14.8) % Plt Count 292 (150-400) X10^3/uL Neut % (Auto) 79.8 H (50-75) % Lymph % (Auto) 7.9 L (25-40) % [place] % (Auto) 11.3 (3-14) % Eos % (Auto) 0.5 L (2-4) % Baso % (Auto) 0.5 (0-2) % Neut # (Auto) 39056 H (7457-0892) /uL Lymph # (Auto) 1100 (1865-4341) /uL [place] # (Auto) 1500 H (0-900) /uL Eos # (Auto) 100 (0-450) /uL Baso # (Auto) 100 (0-100) /uL ESR 48 H (0-15) MM/HR Sodium 133 L (137-145) mmol/L Potassium 4.6 (3.4-5.1) mmol/L Chloride 98 (98-107) mmol/L Carbon Dioxide 30 (22-32) mmol/L BUN 33 H (9-20) mg/dL Creatinine 0.78 (0.66-1.25) mg/dL Estimated GFR > 60.0 (>60) mL/min BUN/Creatinine Ratio 42.3 H (6-22) Glucose 108 (80-110) mg/dL Uric Acid 4.4 (3.5-8.5) mg/dL Calcium 8.9 (8.4-10.2) mg/dL Total Creatine Kinase (55-170) U/L CK-MB (CK-2) CK-MB (CK-2) Rel Index Troponin I (0.01-0.034) ng/mL C-Reactive Protein 6.8 H (<1.0) mg/dL NT-Pro-B Natriuret Pep (<450) pg/mL Urine Color Urine Appearance Urine pH (4.5-8.0) Ur Specific [place] (1.000-1.035) Urine Protein (Negative) Urine Glucose (UA) (Negative) g/dL Urine Ketones (NEGATIVE) Urine Occult Blood (Negative) Urine Nitrate (Negative) Urine Bilirubin (NEGATIVE) Urine Urobilinogen (0.2) E.U./dL Ur Leukocyte Esterase (NEGATIVE) Urine RBC (0-5/HPF) Urine WBC (0-5/HPF) Urine Bacteria (None) Ur Culture Indicated? SARS-CoV-2 (PCR) Negative (Negative) 01/01/21 01/01/21 01/01/21 Range/Units 09:15 09:15 10:43 WBC (4.5-11.0) X10^3/uL RBC (4.5-5.9) X10^6/uL Hgb (13.5-17.5) g/dL Hct (41-53) % MCV (80-100) fL MCH (26-34) PG MCHC (30-36) % RDW (11.6-14.8) % Plt Count (150-400) X10^3/uL Neut % (Auto) (50-75) % Lymph % (Auto) (25-40) % [place] % (Auto) (3-14) % Eos % (Auto) (2-4) % Baso % (Auto) (0-2) % Neut # (Auto) (0561-7754) /uL Lymph # (Auto) (7496-9732) /uL [place] # (Auto) (0-900) /uL Eos # (Auto) (0-450) /uL Baso # (Auto) (0-100) /uL ESR (0-15) MM/HR Sodium (137-145) mmol/L Potassium (3.4-5.1) mmol/L Chloride (98-107) mmol/L Carbon Dioxide (22-32) mmol/L BUN (9-20) mg/dL Creatinine (0.66-1.25) mg/dL Estimated GFR (>60) mL/min BUN/Creatinine Ratio (6-22) Glucose (80-110) mg/dL Uric Acid 4.5 (3.5-8.5) mg/dL Calcium (8.4-10.2) mg/dL Total Creatine Kinase < 20 L (55-170) U/L CK-MB (CK-2) TNP CK-MB (CK-2) Rel Index TNP Troponin I < 0.012 (0.01-0.034) ng/mL C-Reactive Protein (<1.0) mg/dL NT-Pro-B Natriuret Pep 609 H (<450) pg/mL Urine Color Yellow Urine Appearance Clear Urine pH 6.0 (4.5-8.0) Ur Specific [place] 1.020 (1.000-1.035) Urine Protein Negative (Negative) Urine Glucose (UA) Negative (Negative) g/dL Urine Ketones Negative (NEGATIVE) Urine Occult Blood 1+ H (Negative) Urine Nitrate Negative (Negative) Urine Bilirubin Negative (NEGATIVE) Urine Urobilinogen 0.2 (0.2) E.U./dL Ur Leukocyte Esterase Trace H (NEGATIVE) Urine RBC 0-1/hpf (0-5/HPF) Urine WBC 0-1/hpf (0-5/HPF) Urine Bacteria None seen (None) Ur Culture Indicated? Specimen cultured SARS-CoV-2 (PCR) (Negative) Discharge Plan Departure Patient Disposition: Admitted as Observation Clinical Impression: Weakness, Acute dehydration Acute knee pain Qualifiers: Laterality: left Qualified Code(s): M25.562 - Pain in left knee Admit Date/Time: 01/01/21 12:25 Admit Provider: Severino Piedra
--- NOTE | 2021-01-01 07:58 | DI.RAD.S_ITS ---
PROCEDURE: XR CHEST 1V INDICATIONS: SOB, tachypnea, hypoxemia TECHNIQUE: One view of the chest was acquired. COMPARISON: [facility], CR, XR CHEST 1V, 12/06/2020, 10:27. [facility], CR, XR CHEST 1V, 11/25/2020, 16:58. FINDINGS: Surgical changes and devices: None. Lungs and pleura: Lungs are mildly abnormal, with mild asymmetric elevation of the left hemidiaphragm somewhat more prominent than was seen on comparison study from 12/06/20.. No pleural effusions or pneumothorax. Mediastinum: Mediastinal contours appear normal. Heart size is normal. Bones and chest wall: No suspicious bony lesions. Overlying soft tissues appear unremarkable. IMPRESSION: No definite pneumonia found. Mildly greater asymmetric elevation of the left hemidiaphragm when compared to mid last month. Depending on the clinical status follow-up by CT scanning for pulmonary embolus may be warranted. Dictated by: Raul Honeycutt M.D. on 01/01/2021 at 9:02 Approved by: Raul Honeycutt M.D. on 01/01/2021 at 9:03
[2021-01-01] MEDS: FUROSEMIDE 40 MG/4 ML VIAL IV (08:48)
[2021-01-01 09:24] LABS: Add Manual Diff / Slide Review NO; Basophils Absolute Auto 100 /uL (0-100); Basophils Percent Auto 0.5 % (0-2); Eosinophils Absolute Auto 100 /uL (0-450); Eosinophils Percent Auto 0.5 % (2-4); Hematocrit 29.4 % (41-53); Hemoglobin 9.5 g/dL (13.5-17.5); Lymphocytes Absolute Auto 1100 /uL (1100-4500); Lymphocytes Percent Auto 7.9 % (25-40); Mean Corpuscular HGB Conc 32.4 % (30-36); Mean Corpuscular Hemoglobin 26.6 PG (26-34); Monocytes Absolute Auto 1500 /uL (0-900); Monocytes Percent Auto 11.3 % (3-14); Neutrophils Absolute Auto 10700 /uL (1500-7000); Neutrophils Percent Auto 79.8 % (50-75); Platelet Count 292 X10^3/uL (150-400); Red Blood Cell Count 3.59 X10^6/uL (4.5-5.9); Red Cell Distribution Width 18.1 % (11.6-14.8); White Blood Cell Count 13.4 X10^3/uL (4.5-11.0)
[2021-01-01 09:39] LABS: BUN Creatinine Ratio 42.3 (6-22); Blood Urea Nitrogen 33 mg/dL (9-20); Calcium 8.9 mg/dL (8.4-10.2); Carbon Dioxide 30 mmol/L (22-32); Chloride 98 mmol/L (98-107); Creatine Kinase < 20 U/L (55-170); Erythrocyte Sedimentation Rate 48 MM/HR (0-15); Estimated Glomerular Filt Rate > 60.0 mL/min (>60); Glucose 108 mg/dL (80-110); HEMOLYSIS 26 (0-50); Potassium 4.6 mmol/L (3.4-5.1); Sodium 133 mmol/L (137-145); Uric Acid 4.4 mg/dL (3.5-8.5)
[2021-01-01 09:51] LABS: NT-proBNP (BNP-Adult 18+) 609 pg/mL (<450); Troponin I < 0.012 ng/mL (0.01-0.034)
[2021-01-01 09:58] LABS: COVID19 - ADMIT (NP swab/PCR) Negative (Negative)
--- NOTE | 2021-01-01 10:11 | DI.US.S_ITS ---
PROCEDURE: [facility] LOW EXTREM RT INDICATIONS: PAIN/SWELLING RIGHT LEG TECHNIQUE: Real-time imaging, as well as color and pulse Doppler interrogation, were performed of the lower extremity deep veins from the inguinal ligament to the popliteal fossa. COMPARISON: [facility], , [facility], 12/08/2020, 14:34. FINDINGS: The common femoral, femoral and popliteal veins are normally compressible, and free of intraluminal thrombus. Color and pulse Doppler demonstrate normal phasic intraluminal flow. There is normal augmentation response to distal compression maneuver. Soft tissue edema is seen at the level of the ankle. IMPRESSION: Negative for deep venous thrombosis. Dictated by: Alberto Nash M.D. on 01/01/2021 at 10:37 Approved by: Alberto Nash M.D. on 01/01/2021 at 10:38
[2021-01-01 10:14] LABS: C-Reactive Protein Quant 6.8 mg/dL (<1.0)
--- NOTE | 2021-01-01 10:39 | PC.NURSE ---
graphic art sales representative reported patient experiencing burning with urination. provider notified, verbal order received for UA complete. Sample sent to lab
[2021-01-01 10:44] LABS: Bacteria Urine None Seen
[2021-01-01 10:51] LABS: Appearance Urine UA CLEAR; Bilirubin Urine UA NEGATIVE (NEGATIVE); Color Urine UA YELLOW; Glucose Urine UA NEGATIVE (Negative); Ketones Urine UA NEGATIVE (NEGATIVE); Leukocyte Esterase Urine UA TRACE (NEGATIVE); Nitrite Urine UA NEGATIVE (Negative); Occult Blood Urine UA 1+ (Negative); Protein Urine UA NEGATIVE (Negative); Urobilinogen Urine UA 0.2 E.U./dL (0.2)
[2021-01-01 11:05] LABS: Culture Indicated Urine Specimen Cultured; RBC Urine 0-1/HPF (0-5/HPF); WBC Urine 0-1/HPF (0-5/HPF)
--- NOTE | 2021-01-01 11:48 | PC.NURSE ---
PT working with jennifer, daughter outside room, met with daughter to discuss comunity services and give resource booklets. Daughter thankful
--- NOTE | 2021-01-01 12:22 | PT.IIE ---
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 He is able to make needs known. Per outpatient [employer]ER note, pt recently scored 18/30 on SLUMS which is consistent with dementia. Mobility and Gait Pt uses a SPC 100% of the time . Per his daughter, he is falling on a regular basis. He is able to walk to the car from the house but not any farther. Bilateral knee (left worse than right) and ankle pain currently limiting his mobility. Pt's daughter states he had injections in bilateral knees ~2 weeks ago and had a steady improvement but has worsened again since late last week. Activities of Daily Living and IADL's Independent at baseline. Pt's daughter states he is now sometimes incontinent and using absorbent briefs. He needs occasional assist with LB dressing and needs SBA for showers. Social History Household Members none Living Arrangements House Number of Floors (Floors) One Floor Number of Stairs To Enter/Railing? 5 SAMANTHA with R rail ascending Home Environment Standard Height Toilet,Walk in Shower,Built-In Shower Seat Home Equipment Front Wheel Walker,Four Wheel Walker,Straight Cane,Manual Wheelchair,Raised Toilet Seat w/Armrests,Grab Bars In Shower Employment Status Retired Additional Social History Comment Pt typically sleeps in a recliner. He lives alone in [place]. His daughter, Agnes, has been visiting from [place] since early October and plans to stay until pt is stable or a long- term plan is in place. M2 PT-IP Current Condition Start: 01/01/21 10:56 Freq: Status: Active Protocol: Document 01/01/21 12:22 AW (Rec: 01/01/21 13:00 AW [id number]) Physical Therapy Current Condition Current Condition Evaluation Date 01/01/21 Treatment Diagnosis weakness, SOB, PI buttocks; impaired mobility and gait Onset Date 01/01/21 Precautions Other Precautions pressure injuries bilateral buttocks M3 PT-IP Subjective Start: 01/01/21 10:56 Freq: Status: Active Protocol: Document 01/01/21 12:22 AW (Rec: 01/01/21 13:00 AW [id number]) Subjective Physical Therapy Visit Type Type Initial Evaluation Visit Start Time 11:27 Visit Stop Time 12:15 Total Visit Minutes 48 Notes Pt seen in ED at request of ED physician for mobility evaluation. Number of CARPENTER Visits 0 Physical Therapy Visit Comments Patient Comments Pt would like to nap and requires some encouragement but is ultimately willing to participate with PT Patient Goals Maintain independence Therapy Pain Assessment Pain When Pain Assessed During Mobility Pain Present Pain Present Pain Reported Location bilateral ankles Scale Used during gait Pain Behaviors Facial Grimacing,Wincing Pain Management Techniques Distraction,Modification of Treatment bilateral knees Scale Used not quantified Description With Movement Pain Behaviors Facial Grimacing,Wincing Pain Management Techniques Modification of Treatment,Re- positioning M4 PT-IP Mobility and Gait Start: 01/01/21 10:56 Freq: Status: Active Protocol: Document 01/01/21 12:22 AW (Rec: 01/01/21 13:00 AW [id number]) PT-Bed Mobility Assessment Supine to Sit Supine to Sit Minimal Assistance,1 Person Assistance Sit to Supine Sit to Supine Minimal Assistance,1 Person Assistance Scooting Scooting to Edge of Bed Contact Guard Assistance PT-Transfer Assessment Sit to and From Stand Sit to and from Stand Contact Guard Assistance,1 Person Assistance,Use of Upper Extremities Equipment Transfer Assistive Device Gait Belt,Front Wheeled Walker Orthotic/Prosthetic Devices or Brace: No Transfers Transfer Destination Bed Transfer Technique Stand Step Pivot Transfer Ability Level of Assist Contact Guard Assistance,1 Person Assistance,Use of Upper Extremities Comments Mobility Comments Pt was lying supine on the [facility] as PT arrived. He completed supine to sit min A x 1. Pt does not sleep in a bed at home. Pt had fair sitting balance but occasional retro lean requiring CGA for stability. He stood from the tall [facility] and voided in a urinal with fair standing balance. He used the FWW to ambulate SBA/CGA 50 feet. On return to the room, pt sat EOB and waited for PT to return with pull up style briefs. Pt was able to stand and pull up his briefs from knee level CGA . He then attempted to transfer to a low chair but could not tolerate the degree of knee flexion required to sit. Instead, he transferred back to the [facility] min A x 1 for elevation of BLE. Pt was able to turn himself onto his right side for pressure relief . Pt was left with his daughter in the room, call banks in reach. Gait Assessment Gait Gait Assistance Required: Standby Assistance,Contact Guard Assist Distance (Feet) 50 Assistive Devices Assistive Device Gait Belt,Front Wheeled Walker Orthotic/Prosthetic Devices or Brace: No Gait Deviations General Gait Pattern Antalgic,Decreased Stride Length,Decreased Feet Clearance,Flexed Trunk,Step-to Gait Factors Limiting Gait Function Factors Limiting Gait Function Decreased Activity Tolerance, Decreased Strength,Limited Range of Motion,Pain,Poor Balance,Poor Safety Awareness Comments Gait Comments Pt ambulated with FWW SBA/ occasional CGA for stability. He complained of increased bilateral ankle pain in weightbearing. Stair Climbing Assessment Comments Stair Climbing Comments Not assessed. PT-Balance Assessment Sitting Balance and Reactions Static Sitting Balance Ability Fair Dynamic Sitting Balance Ability Fair Standing Balance and Reactions Static Standing Balance Ability Fair Dynamic Standing Balance Ability Fair Device Used FWW Balance Tests Single Limb Standing RLE 1 sec; LLE unable Tandem Standing unable to assume position without assist M5 PT-IP Objective Assessments Start: 01/01/21 10:56 Freq: Status: Active Protocol: Document 01/01/21 12:22 AW (Rec: 01/01/21 13:00 AW [id number]) Orientation Orientation/Cognition Level of Alertness Alert Orientation Name,Day of Week,Place, Situation Language Function Ability Hard of Hearing Safety Awareness Decreased Safety Awareness Memory Description Short Term Impaired Comments Pt has documented SLUMS score of 18/30 from November 2020. He is easily irritated but redirectable. Gross Range of Motion Upper Extremity ROM Assessment Right Impaired Impairments R wrist painful ROM Lower Extremity ROM Assessment Bilaterally Impaired Impairments -lacking TKE bilaterally -active dorsiflexion only to neutral -painful left knee flexion beyond 80 degrees Strength Lower Extremity Strength Assessment Bilaterally Impaired Hip B 3+/5 Knee R 4/5; L 3+/5 Ankle B 4/5 Sensation Assessment Sensation Gross Sensation WNL M6 PT-IP Treatment Start: 01/01/21 10:56 Freq: Status: Active Protocol: Document 01/01/21 12:22 AW (Rec: 01/01/21 13:00 AW [id number]) Physical Therapy Treatment Education Education Provided Safety Other Treatments Other Treatment Performed Initiated caregiver training with pt's daughter who was present throughout evaluation, including transfer training with gait belt and sit to stand assist. M7 PT-IP Assessment and Plan Start: 01/01/21 10:56 Freq: Status: Active Protocol: Document 01/01/21 12:22 AW (Rec: 01/01/21 13:00 AW [id number]) PT Summary Assessment and Plan Potential Rehabilitation Potential Fair Status of Condition at Evaluation Evolving Summary Impairments Pain,ROM,Strength,Balance, Cognition,Bed Mobility, Transfers,Gait,Activity Tolerance Assessment Summary Klever is an 85 yo man seen in the ED for PT evaluation with complaints of weakness, SOB, inability to stand from a chair today. He lives alone in [place] but has a daughter visiting from [place] and staying with him until a long-term plan is in place. Pt is typically modified independent with use of SPC for household mobility. Pt has had multiple ER visits over the past few months related to chest pain and joint pain. He presents today with impaired strength, transfers, and gait which negatively affect his ability to mobilize independently. He is requiring min assist with bed mobility, CGA for transfers and short distance gait with FWW. Stairs were not assessed due to pt's poor activity tolerance. Pt has newly identified pressure injuries on bilateral buttocks suggesting low level of mobility at home. He would benefit from additional PT in the acute setting and either home health or outpatient PT to improve strength, balance, mobility independence, and to mitigate the risks of immobility. Discussed recommendation of FWW with pt' s daughter who states she will reinforce this idea at home. Goals Bed Mobility Goal Contact Guard Assistance Transfer Goal Independent,Front Wheeled Walker Gait Goal Independent,Front Wheel Walker Gait Distance 120 Other Goals - up/down 5 steps with left rail ascending SBA Days to Meet Goals 5 Frequency of Treatment Frequency Of Treatment Once a Day Treatment Plan Physical Therapy Treatment Plan Bed Mobility Training,Transfer Training,Gait Training, Therapeutic Exercise,Balance Retraining,Discharge Planning, Hot or Cold Pack,Neuromuscular Re-ed,Coordination Retraining Other Recommendations and Next Treatment continue caregiver training; Focus assess stairs when able; mobility as tolerated Recommendations To Nursing Amount of Assist Needed 1 Person Assist Discharge Recommendations PT Discharge Recommendations Home with 24/ Assist Available,Home Health, Outpatient PT Transportation Needs at Discharge Private Vehicle
[2021-01-01 13:29] LABS: Uric Acid 4.5 mg/dL (3.5-8.5)
--- NOTE | 2021-01-01 14:47 | PC.NURSE ---
Patient admitted to room 215 from Er, with daughter Agnes at bedside. Patient oriented to room and call light, bed alarm activated. Daughter reports he has some confusion with dementia and history of a stroke. Reports he will need something to help him sleep tonight. Patient assisted with urinal and nasir care, brief changed and patient repositioned. Patient has redness to buttocks with 2 (stage 2 pressure ulcers) noted on admission. Patient's daughter states they have been using diaper ointment and orajel to help relieve discomfort to his bottom. Skin and pressure ulcer prevention measures initiated. Patient currently sleeping soundly at this time. 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
[2021-01-01] MEDS: HYDROCODONE/ACET 5/325 TABLET 1 TAB PO (16:53)
[2021-01-01] MEDS: MORPHINE 2 MG/ML INJ IV ×2 (17:40→22:09)
--- NOTE | 2021-01-01 22:00 | DI.RAD.S_ITS ---
PROCEDURE: XR ANKLE LT 2V INDICATIONS: ankle pain TECHNIQUE: 2 views of the ankle were acquired. COMPARISON: None. FINDINGS: Bones: No acute fracture seen. There is posterior calcaneal spurring. Diffuse hindfoot and midfoot degenerative spurring and sclerosis. Soft tissues: No tibiotalar joint effusion. Achilles tendon appears normal. IMPRESSION: Prominent posterior calcaneal spur and diffuse midfoot and hindfoot osteoarthritis. If the patient's pain or other symptoms persist, consider further evaluation with MRI Dictated by: Tho Mccall M.D. on 01/02/2021 at 9:46 Approved by: Tho Mccall M.D. on 01/02/2021 at 9:48
--- NOTE | 2021-01-01 22:00 | DI.RAD.S_ITS ---
PROCEDURE: XR KNEE LT 1TO2V INDICATIONS: knee pain TECHNIQUE: 3 views of the knee were acquired. COMPARISON: [facility], , XR KNEE LT 3V, 10/23/2020, 2:42. FINDINGS: Bones: No acute fracture identified. Prominent spurring and osseous fragmentation seen at the tibial tuberosity as well as the inferior pole of the patella. Mild to moderate narrowing of the medial joint space. Soft tissues: Scattered vascular calcifications are present. Moderate joint effusion. 1-2 mm radiopaque foreign body in the posterior soft tissues. IMPRESSION: Moderate joint effusion. This is new since the prior study. Chronic osseous changes at the inferior pole of patella and tibial tuberosity in keeping with chronic patellar tendinopathy, a combination of [place]ár[place] and [place]-Schlatter syndrome [id number]-[id number] osteoarthritis. This appears unchanged since 10/23/20. Dictated by: Tho Mccall M.D. on 01/02/2021 at 9:36 Approved by: Tho Mccall M.D. on 01/02/2021 at 9:38
--- NOTE | 2021-01-01 22:00 | DI.RAD.S_ITS ---
PROCEDURE: XR ANKLE RT 2V INDICATIONS: ankle pain TECHNIQUE: 2 views of the ankle were acquired. COMPARISON: None. FINDINGS: Bones: No acute fracture. Scattered degenerative subchondral sclerosis and spurring. Prominent posterior calcaneal spurring. Diffuse hindfoot and midfoot osteoarthritis Soft tissues: No tibiotalar joint effusion. Achilles tendon appears normal. Few scattered vascular calcifications. IMPRESSION: Prominent posterior calcaneal spur. Diffuse hindfoot and midfoot osteoarthritis Dictated by: Tho Mccall M.D. on 01/02/2021 at 9:48 Approved by: Tho Mccall M.D. on 01/02/2021 at 9:49
--- NOTE | 2021-01-01 22:00 | DI.RAD.S_ITS ---
PROCEDURE: XR KNEE RT 1TO2V INDICATIONS: knee pain TECHNIQUE: 2 views of the knee were acquired. COMPARISON: [facility] [place], CR, XR KNEE 4+ VIEWS RIGHT, 06/20/2020, 8:39. [facility], CR, XR KNEE LT 3V, 10/23/2020, 2:42. FINDINGS: Bones: No acute fracture identified. There is mild to moderate narrowing of the medial joint space. Osseous hypertrophy at the tibial tuberosity. There is spurring at the superior and inferior pole of the patella. Soft tissues: Mild joint effusion. IMPRESSION: Zbck-jk-wuntonbi osteoarthritis. This appears unchanged. Mild joint effusion. This is new since the prior study. Unchanged chronic osseous hypertrophy and spurring at the tibial tuberosity suggestive of Tim-Schlatter syndrome. 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 Dictated by: Tho Mccall M.D. on 01/02/2021 at 9:39 Approved by: Tho Mccall M.D. on 01/02/2021 at 9:41
--- NOTE | 2021-01-01 22:01 | P.HP_ITS ---
History of Present Illness History of Present Illness Date Patient Seen: 01/01/21 Time Patient Seen: 16:02 Chief complaint: Joint pain Narrative: Mr. George is an 85M PMH gout, HTN, former smoker, hypothyroid, osteoarthritis who comes in with bilateral leg pain. Over the past few days he has had worsening bilateral knee and ankle pain. He has had increased difficulty walking, and today could not ambulate due to the pain. He has had some worsening swelling in his lower extremities. He has had no fevers/chills. He did have a slow slide to fall on carpet about a week ago. In the ER workup was done and he was noted to have normal vital signs. Labs notable for WBC of 13.4, hgb 9.5, creatinine 0.78, uric acid 4.5, BNP 609. CRP 6.8, ESR 48. Chest xray showed no acute process. Vascular ultrasound showed no DVT, but edema was seen at level of ankle. He was given lasix and admitted for further treatment. 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) Hemorrhoids Hyperlipemia Hypertension Hyperthyroidism Insomnia Obstructive sleep apnea Osteoarthritis Papules Primary insomnia (09/16/16) Pure hypercholesterolemia (02/12/16) Squamous cell carcinoma Surgical History History of ectropion repair (10/2017) Hx of surgical procedure Family & Social History Family History Family/Other Unknown family medical history Social History: household members family Prior Living Arrangements House Safety & Behavioral: Feels Safe in Current Yes Environment Been Physically Hurt or No Threatened By a Person Suicidal Ideation Description None Suicide Plan Description No Plan Tobacco & Substance use: Smoking Status Former smoker alcohol intake frequency 0-2 drinks per day Substance Use Type does not use Meds Home Medications and Allergies Home Medications Medication Instructions Recorded Confirmed Type cholecalciferol (vitamin D3) 50 mcg PO DAILY 11/25/20 01/01/21 History acetaminophen 650 mg PO Q4H PRN 01/01/21 01/01/21 History allopurinol 100 mg PO DAILY 01/01/21 01/01/21 History amlodipine 10 mg PO DAILY 01/01/21 01/01/21 History atenolol 50 mg PO BID 01/01/21 01/01/21 History doxepin 10 mg PO QPM 01/01/21 01/01/21 History duloxetine 20 mg PO DAILY 01/01/21 01/01/21 History famotidine 20 mg PO BID 01/01/21 01/01/21 History hydrocodone-acetaminophen 1 tab PO PRN PRN 01/01/21 01/01/21 History lactobacillus combination no.8 3,000 mmu cells PO DAILY 01/01/21 01/01/21 History [Adult Probiotic] qplxardoivof-abrmhjtg-ssatqa 1 tab PO DAILY 01/01/21 01/01/21 History [Centrum Silver] pantoprazole 40 mg PO BID 01/01/21 01/01/21 History tamsulosin [Flomax] 0.4 mg PO BEDTIME 01/01/21 01/01/21 History trazodone 50 mg PO BEDTIME 01/01/21 01/01/21 History Allergies Allergy/AdvReac Type Severity Reaction Status Date / Time No Known Drug Allergies Allergy Verified 12/12/20 16:31 Review of Systems Review of Systems Narrative: 14 systems reviewed and negative aside from what is in HPI Exam Vital Signs (past 8 hours): - 01/01/21 15:30 Temperature 99.5 F Pulse Rate 78 Respiratory Rate 18 Blood Pressure 137/70 Pulse Oximetry 96 Oxygen Delivery Method Room Air Oxygen Flow Rate 0 Narrative Exam Narrative: GEN: no acute distress HEENT: PERRL, moist mucous membranes NECK: trachea midline, no JVD CV: RRR with no murmurs PULM: clear bilaterally, no wheezes, rhonchi, rales ABD: soft nontender, nondistended, no organomegaly, normal bowel sounds EXT: bilateral pitting edema primarily at the feet, left knee with painful range of motin, no redness or effusion noted SKIN: sacral decubitus ulcer NEURO: AAOx3, moving all extremities PSYCH: Pleasant, cooperative Objective Labs Result Diagrams: 01/01/21 09:15 01/01/21 09:15 Labs: Laboratory Results - last 24 hr 01/01/21 01/01/21 01/01/21 09:03 09:15 09:15 WBC 13.4 H RBC 3.59 L Hgb 9.5 L Hct 29.4 L MCV 82.0 MCH 26.6 MCHC 32.4 RDW 18.1 H Plt Count 292 Neut % (Auto) 79.8 H Lymph % (Auto) 7.9 L [place] % (Auto) 11.3 Eos % (Auto) 0.5 L Baso % (Auto) 0.5 Neut # (Auto) 55038 H Lymph # (Auto) 1100 [place] # (Auto) 1500 H Eos # (Auto) 100 Baso # (Auto) 100 ESR 48 H Sodium 133 L Potassium 4.6 Chloride 98 Carbon Dioxide 30 BUN 33 H Creatinine 0.78 Estimated GFR > 60.0 BUN/Creatinine Ratio 42.3 H Glucose 108 Uric Acid 4.4 Calcium 8.9 Total Creatine Kinase CK-MB (CK-2) CK-MB (CK-2) Rel Index Troponin I C-Reactive Protein 6.8 H NT-Pro-B Natriuret Pep Urine Color Urine Appearance Urine pH Ur Specific [place] Urine Protein Urine Glucose (UA) Urine Ketones Urine Occult Blood Urine Nitrate Urine Bilirubin Urine Urobilinogen Ur Leukocyte Esterase Urine RBC Urine WBC Urine Bacteria Ur Culture Indicated? SARS-CoV-2 (PCR) Negative 01/01/21 01/01/21 01/01/21 09:15 09:15 10:43 WBC RBC Hgb Hct MCV MCH MCHC RDW Plt Count Neut % (Auto) Lymph % (Auto) [place] % (Auto) Eos % (Auto) Baso % (Auto) Neut # (Auto) Lymph # (Auto) [place] # (Auto) Eos # (Auto) Baso # (Auto) ESR Sodium Potassium Chloride Carbon Dioxide BUN Creatinine Estimated GFR BUN/Creatinine Ratio Glucose Uric Acid 4.5 Calcium Total Creatine Kinase < 20 L CK-MB (CK-2) TNP CK-MB (CK-2) Rel Index TNP Troponin I < 0.012 C-Reactive Protein NT-Pro-B Natriuret Pep 609 H Urine Color Yellow Urine Appearance Clear Urine pH 6.0 Ur Specific [place] 1.020 Urine Protein Negative Urine Glucose (UA) Negative Urine Ketones Negative Urine Occult Blood 1+ H Urine Nitrate Negative Urine Bilirubin Negative Urine Urobilinogen 0.2 Ur Leukocyte Esterase Trace H Urine RBC 0-1/hpf Urine WBC 0-1/hpf Urine Bacteria None seen Ur Culture Indicated? Specimen cultured SARS-CoV-2 (PCR) Assessment & Plan Assessment & Plan narrative: 1. Bilateral knee and ankle pain, acute on chronic -uric acid normal -likely worsening osteoarthritis -possibly has slight superimposed CHF -given recent fall will order bilateral xrays of knees and ankles -order pain medications for better pain control -continue allopurinol 2. Lower extremity edema -BNP slightly elevated -no evidence of chf on xray -will order xray for further evaluation 2. Hypertension, chronic -continue amlodipine, atenolol 3. BPH -tamsulosin 4. Depression -continue duloxetine IVF: none Diet: low salt diet DVT ppx: lovenox Code: Full, daughter Cinde Quality MIPS - Admit I confirm the patient?s Advance Care Plan is present, Code status is documented, Surrogate decision maker is in patient?s record [If Yes, STOP here]: Yes
--- NOTE | 2021-01-01 22:05 | DI.ECHO.S_ITS ---
[facility]---------+ [facility] +---------+ : : [address] : : : : [id number] : : : : Phone: [phone]+ Echocardiogram Report + + :Name: RANULFO MIN Study Date: 01/02/2021 Height: 71 in : :[facility] ReadingLocation: Weight: 229 lb : :Account #: [id number] Gender: Male BSA: 2.2 m2 : :: 1935 Age: 85 yrs BP: 114/66 mmHg: :Reason For Study: CHF : :Ordering Physician: : :BUCKY SANTANA Performed By: Reji Haque : :Referring: BUCKY SANTANA : + + Interpretation Summary The ejection fraction is estimated to be 55-60%. There has been no significant change in LVEF since the previous exam. The right ventricle is normal size. Right ventricular systolic function is mildly reduced. No significant valvular pathology seen. The IVC is of normal diameter and collapses greater than 50% with a sniff. This suggests a low right atrial pressure of 3 mm Hg. Procedure: A two-dimensional transthoracic echocardiogram with color flow and Doppler was performed. The study quality was technically adequate. Comparison is made with the echocardiogram of 10/28/2020. The patient was in sinus rhythm with heart rates between 65-71 bpm during the exam. Left Ventricle: The left ventricle is normal in size. Proximal septal thickening is noted. There is no echo evidence for significant left ventricular outflow tract obstruction. There is no thrombus. Left ventricular systolic function is normal. The ejection fraction is estimated to be 55-60%. There has been no significant change since the previous exam. There are no focal wall motion abnormalities. Diastolic parameters suggest a relaxation abnormality of the left ventricle, consistent with probable normal filling pressures. Right Ventricle: The right ventricle is normal size. Right ventricular systolic function is mildly reduced. Atria: Both atria are normal in size. The left atrium has remained unchanged in size since the prior echo exam. There is no Doppler evidence for an interatrial shunt. Mitral Valve: There is mild mitral annular calcification. There is no mitral regurgitation noted. Aortic Valve: There is mild aortic valve sclerosis. There is discrete nodular thickening of the right coronary cusp. There is trace aortic regurgitation. Tricuspid Valve: The tricuspid valve is not well visualized, but is grossly normal. Pulmonary artery pressures cannot be estimated because of the lack of a measurable TR jet velocity but the IVC suggests a CVP of around 3 mmHg. There is trace tricuspid regurgitation. Pulmonic Valve: The pulmonic valve is not well visualized. There is no pulmonic valvular regurgitation. Great Vessels: The aortic root is normal size. The dimensions of the ascending aorta are normal. The IVC is of normal diameter and collapses greater than 50% with a sniff. This suggests a low right atrial pressure of 3 mm Hg. Pericardium/ Pleura There is no pericardial effusion. There is no pleural effusion. MMode/2D Measurements & Calculations LVIDd: 4.7 cm LVOT diam: 2.5 cm LVIDs: 3.3 cm Ao root diam: 4.2 cm FS: 29.8 % asc Aorta Diam: 3.1 cm IVSd: 1.3 cm LVPWd: 1.1 cm LV thurston. diameter/BSA (cm/m^2): 2.1 LV sys. diameter/BSA (cm/m^2): 1.5 LA A2 area: 17.0 cm2 RA long axis: 5.0 cm LA A4 area: 18.1 cm2 RA area: 17.2 cm2 LA length (vol): 5.1 cm RA vol: 50.2 ml LA vol: 50.9 ml RA : 22.5 ml/m2 LA vol index: 22.8 ml/m2 TAPSE: 1.4 cm Doppler Measurements & Calculations Ao V2 max: 117.0 cm/sec LVOT Max Calvin: 99.6 cm/sec Ao V2 mean: 89.0 cm/sec LV V1 max P.0 mmHg Ao max P.5 mmHg LV V1 VTI: 20.7 cm Ao mean P.4 mmHg REINA(I,D): 4.1 cm2 Ao V2 VTI: 24.2 cm REINA(V,D): 4.1 cm2 sev ratio: 0.86 REINA indexed to BSA (cm^2/m^2): 1.8 MV E max calvin: 76.2 cm/sec PA V2 max: 88.8 cm/sec MV A max calvin: 108.1 cm/sec PA V2 mean: 59.9 cm/sec MV E/A: 0.71 PA mean P.6 mmHg Med Peak E' Calvin: 5.3 cm/sec PA pr(Accel): 46.5 mmHg E/E' med: 14.4 Lat Peak E' Calvin: 8.6 cm/sec E/E' lat: 8.8 E/e' average: 11.6 MV dec time: 0.20 sec SV(LVOT): 98.7 ml Reading Physician:01:43 PM
[2021-01-01] MEDS: TAMSULOSIN 0.4 MG CAPSULE PO (22:09)
[2021-01-01] MEDS: TRAZODONE 50 MG TABLET PO (22:09)
[2021-01-01] MEDS: PANTOPRAZOLE DR 40 MG TABLET PO (22:09)
[2021-01-01] MEDS: DOXYCYCLINE HYCLATE 100 MG TABLET PO (22:10)
[2021-01-01] MEDS: atenoloL 50 MG TABLET PO (22:10)
[2021-01-01] MEDS: FAMOTIDINE 20 MG TABLET PO (22:10)
[2021-01-01] MEDS: DOXEPIN 10 MG CAPSULE PO (22:10)
[2021-01-02] VITALS: BP 114/66; PULSE 76; RESP 18; TEMP 37; O2SAT 92
--- NOTE | 2021-01-02 01:16 | PC.NURSE ---
Patient resting in bed, A/O x 3. Denies pain, rolled to left side, bilateral buttock wounds noted and documented. Pictures obtained, wounds measured. R medial buttock 1.6 x 1.4 x 0.1, unstageable d/t slough in base, scant serous drainage, Allyvn dressing placed. Left medial buttock: series of scattered openings, moist nasir-wound, largest opening 0.6 x 0.4 x 0.1, slough and pink granulation noted in base, barrier cream applied. Brief changed. Patient repositioned to remain on left side. Patient denies SOB or pain at this time. Lungs CTA, 92% on RA, pulses equal, non pitting edema noted bilat LE. Patient saline locked. Bed alarm on. Call light in reach.
[2021-01-02 07:00] LABS: Add Manual Diff / Slide Review NO; Basophils Absolute Auto 200 /uL (0-100); Eosinophils Absolute Auto 100 /uL (0-450); Eosinophils Percent Auto 0.6 % (2-4); Hematocrit 32.4 % (41-53); Hemoglobin 10.6 g/dL (13.5-17.5); Lymphocytes Absolute Auto 800 /uL (1100-4500); Lymphocytes Percent Auto 7.5 % (25-40); Mean Corpuscular HGB Conc 32.6 % (30-36); Mean Corpuscular Hemoglobin 26.6 PG (26-34); Mean Corpuscular Volume 81.6 fL (80-100); Monocytes Absolute Auto 1000 /uL (0-900); Monocytes Percent Auto 8.8 % (3-14); Neutrophils Absolute Auto 8800 /uL (1500-7000); Neutrophils Percent Auto 81.1 % (50-75); Platelet Count 317 X10^3/uL (150-400); Red Blood Cell Count 3.98 X10^6/uL (4.5-5.9); Red Cell Distribution Width 18.3 % (11.6-14.8); White Blood Cell Count 10.9 X10^3/uL (4.5-11.0)
[2021-01-02 07:11] LABS: BUN Creatinine Ratio 35.9 (6-22); Blood Urea Nitrogen 28 mg/dL (9-20); Carbon Dioxide 30 mmol/L (22-32); Chloride 97 mmol/L (98-107); Estimated Glomerular Filt Rate > 60.0 mL/min (>60); Glucose 108 mg/dL (80-110); HEMOLYSIS < 15 (0-50); Potassium 4.1 mmol/L (3.4-5.1); Sodium 134 mmol/L (137-145)
[2021-01-02 08:00] VITALS: BP 149/77; PULSE 68; RESP 20; TEMP 36.5; O2SAT 95
[2021-01-02] MEDS: PANTOPRAZOLE DR 40 MG TABLET PO ×2 (10:03→22:15)
[2021-01-02] MEDS: AMLODIPINE 5 MG TABLET 10 MG PO (10:03)
[2021-01-02] MEDS: allopurinoL 100 MG TABLET PO (10:03)
[2021-01-02] MEDS: atenoloL 50 MG TABLET PO ×2 (10:03→22:15)
[2021-01-02] MEDS: CHOLECALCIFEROL (VITAMIN D3) 1,000 UNIT TABLET 2000 UNIT PO (10:03)
[2021-01-02] MEDS: DOXYCYCLINE HYCLATE 100 MG TABLET PO ×2 (10:03→22:15)
[2021-01-02] MEDS: FAMOTIDINE 20 MG TABLET PO ×2 (10:03→22:15)
[2021-01-02] MEDS: ENOXAPARIN 40 MG/0.4 ML SYRINGE SUBCUT (10:04)
--- NOTE | 2021-01-02 10:12 | PT.IPTN ---
Physical Therapy Treatment Note M2 PT-IP Current Condition Start: 01/01/21 10:56 Freq: Status: Active Protocol: Document 01/01/21 12:22 AW (Rec: 01/01/21 13:00 AW [id number]) Physical Therapy Current Condition Current Condition Evaluation Date 01/01/21 Treatment Diagnosis weakness, SOB, PI buttocks; impaired mobility and gait Onset Date 01/01/21 Precautions Other Precautions pressure injuries bilateral buttocks M3 PT-IP Subjective Start: 01/01/21 10:56 Freq: Status: Active Protocol: Document 01/02/21 10:12 AW (Rec: 01/02/21 11:11 AW [id number]) Subjective Physical Therapy Visit Type Type Treatment Note Visit Start Time 10:28 Visit Stop Time 10:46 Total Visit Minutes 18 Notes Pt's daughter, Agnes, was present throughout treatment. She clarified that pt was at [facility] for rehab earlier this year and came home at the end of October. Physical Therapy Visit Comments Patient Comments Pt would like to use the toilet. Therapy Pain Assessment Pain When Pain Assessed During Mobility Pain Present Pain Present Allowed to Sleep Location bilateral knees Scale Used Numeric (0 - 10) Description Aching,Throbbing,With Movement Pain Behaviors Facial Grimacing,Wincing Pain Management Techniques Apply Cold,Elevation, Modification of Treatment,Re- positioning,Timing of Activity with Medications M4 PT-IP Mobility and Gait Start: 01/01/21 10:56 Freq: Status: Active Protocol: Document 01/02/21 10:12 AW (Rec: 01/02/21 11:11 AW [id number]) PT-Bed Mobility Assessment Supine to Sit Supine to Sit Moderate Assistance,1 Person Assistance,Head of Bed Elevated,Bedrails Scooting Scooting to Edge of Bed Contact Guard Assistance PT-Transfer Assessment Sit to and From Stand Sit to and from Stand Maximum Assistance,1 Person Assistance,Use of Upper Extremities Equipment Transfer Assistive Device Gait Belt,Front Wheeled Walker Orthotic/Prosthetic Devices or Brace: No Transfers Transfer Destination Chair,Toilet Transfer Ability Level of Assist Moderate Assistance,1 Person Assistance,Use of Upper Extremities Comments Mobility Comments Pt was reclined in bed as PT arrived. BP 126/59 HR 73. He was mod A x 1 for supine to sit with HOB at 30 degrees. With bed in lowest position, pt required max assist for sit to stand and min assist to ambulate toward the toilet. PT offered the option of BSC for greater comfort and a height consistent with RTS as at home but pt preferred the toilet. Pt required max assist and heavy use of grab bars to transfer. He had a large BM and then had difficulty reaching to wipe. He stood max assist and heavy use of grab bars and was total assist for hygiene. He was then able to pull up his briefs from around his knee CGA for balance and min assist to walk to the chair. Transfer to the chair requried max assist. Subsequent sit to stand from the bedside chair also required max assist. Pt was left with call light and all needs in reach. His daughter remained in the room. Gait Assessment Gait Gait Assistance Required: Minimum Assistance,1 Person Assist Distance (Feet) 15 Assistive Devices Assistive Device Gait Belt,Front Wheeled Walker Orthotic/Prosthetic Devices or Brace: No Gait Deviations General Gait Pattern Antalgic,Decreased Stride Length,Decreased Feet Clearance,Flexed Trunk,Step-to Gait,Wide Based Gait Factors Limiting Gait Function Factors Limiting Gait Function Decreased Activity Tolerance, Decreased Strength,Limited Range of Motion,Pain,Poor Balance,Poor Safety Awareness Comments Gait Comments Pt required increased level of assist today, reporting increased pain and fatigue with weightbearing. FWW and min assist required. Pt complains of right wrist pain with weightbearing and pushes the walker too far in front of himself. Stair Climbing Assessment Comments Stair Climbing Comments Not assessed. PT-Balance Assessment Sitting Balance and Reactions Static Sitting Balance Ability Fair Dynamic Sitting Balance Ability Fair Standing Balance and Reactions Static Standing Balance Ability Fair Dynamic Standing Balance Ability Fair Device Used FWW M5 PT-IP Objective Assessments Start: 01/01/21 10:56 Freq: Status: Active Protocol: Document 01/01/21 12:22 AW (Rec: 01/01/21 13:00 AW [id number]) Orientation Orientation/Cognition Level of Alertness Alert Orientation Name,Day of Week,Place, Situation Language Function Ability Hard of Hearing Safety Awareness Decreased Safety Awareness Memory Description Short Term Impaired Comments Pt has documented SLUMS score of 18/30 from November 2020. He is easily irritated but redirectable. Gross Range of Motion Upper Extremity ROM Assessment Right Impaired Impairments R wrist painful ROM Lower Extremity ROM Assessment Bilaterally Impaired Impairments -lacking TKE bilaterally -active dorsiflexion only to neutral -painful left knee flexion beyond 80 degrees Strength Lower Extremity Strength Assessment Bilaterally Impaired Hip B 3+/5 Knee R 4/5; L 3+/5 Ankle B 4/5 Sensation Assessment Sensation Gross Sensation WNL M6 PT-IP Treatment Start: 01/01/21 10:56 Freq: Status: Active Protocol: Document 01/02/21 10:12 AW (Rec: 01/02/21 11:11 AW [id number]) Physical Therapy Treatment Exercises Exercises Ankle Pumps,Quad Sets Education Education Provided Safety Other Treatments Other Treatment Performed Educated pt and his daughter on recommendation for FWW at this time and both agreed. Pt is too unsteady to consider a cane. M7 PT-IP Assessment and Plan Start: 01/01/21 10:56 Freq: Status: Active Protocol: Document 01/02/21 10:12 AW (Rec: 01/02/21 11:11 AW [id number]) PT Summary Assessment and Plan Potential Rehabilitation Potential Fair Status of Condition at Evaluation Evolving Summary Impairments Pain,ROM,Strength,Balance, Cognition,Bed Mobility, Transfers,Gait,Activity Tolerance Progress Towards Goals Slow Progress due to Pain,Slow Progress due to Activity Tolerance,Slow Progress - Other Assessment Summary Hernandez is requiring increased level of assist this date - max assist for transfers and min assist for ambulation with FWW. Pt's daughter indicates this need exceeds what she is able to provide at home. Pt would benefit from SNF rehab to improve strength and mobility independence. If SNF is not an option, pt will require 24/7 assist with all mobility at home and home health therapy. Goals Bed Mobility Goal Contact Guard Assistance Transfer Goal Independent,Front Wheeled Walker Gait Goal Independent,Front Wheel Walker Gait Distance 120 Other Goals - up/down 5 steps with left rail ascending SBA Days to Meet Goals 5 Frequency of Treatment Frequency Of Treatment Once a Day Treatment Plan Physical Therapy Treatment Plan Bed Mobility Training,Transfer Training,Gait Training, Therapeutic Exercise,Balance Retraining,Discharge Planning, Hot or Cold Pack,Neuromuscular Re-ed,Coordination Retraining Other Recommendations and Next Treatment continue caregiver training; Focus assess stairs when able; mobility as tolerated Precautions Other Precautions -pressure injuries bilateral buttocks -falls Recommendations To Nursing Amount of Assist Needed 2 Person Assist Discharge Recommendations PT Discharge Recommendations Home Health,Home vs SNF Other Discharge Recommendations SNF required at this time Transportation Needs at Discharge Private Vehicle
--- NOTE | 2021-01-02 12:43 | PC.NURSE ---
Patient is a 2 person assist to get up to the commode and chair .. He is back to bed now and napping. Took all of his po medications without difficulty. Patient has some skin issues, please see under skin assessment. Denies pain at this time.
--- NOTE | 2021-01-02 14:56 | OT.IP.EVAL ---
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) Hemorrhoids Hyperlipemia Hypertension Hyperthyroidism Insomnia Obstructive sleep apnea Osteoarthritis Papules Primary insomnia (09/16/16) Pure hypercholesterolemia (02/12/16) Squamous cell carcinoma Surgical History (Last Reviewed 01/01/21 @ 22:09 by Severino Piedra MD) History of ectropion repair (10/2017) Hx of surgical procedure Occupational Therapy Inpatient Evaluation/Re-Eval M1 PT/OT-IP Prior Functional Status Start: 01/01/21 10:56 Freq: Status: Active Protocol: Document 01/02/21 15:00 [facility] (Rec: 01/02/21 15:17 [facility] [id number]) Medical Review Prior Functional Status Medical History Reviewed Yes Communication Pt is [place] and does not wear hearing aids. He is able to make needs known. Per outpatient [employer] note, pt recently scored 18/30 on SLUMS which is consistent with dementia. Mobility and Gait Pt uses a SPC 100% of the time . Per his daughter, he is falling on a regular basis. He is able to walk to the car from the house but not any farther. Bilateral knee (left worse than right) and ankle pain currently limiting his mobility. Pt's daughter states he had injections in bilateral knees ~2 weeks ago and had a steady improvement but has worsened again since late last week. Activities of Daily Living and IADL's Independent at baseline. Pt's daughter states he is now sometimes incontinent and using absorbent briefs. He needs occasional assist with LB dressing and needs SBA for showers. Social History Household Members family Living Arrangements House Number of Floors (Floors) One Floor Number of Stairs To Enter/Railing? 5 SAMANTHA with R rail ascending Home Environment Standard Height Toilet,Walk in Shower,Built-In Shower Seat Home Equipment Front Wheel Walker,Four Wheel Walker,Straight Cane,Manual Wheelchair,Raised Toilet Seat w/Armrests,Grab Bars In Shower Employment Status Retired Additional Social History Comment Pt typically sleeps in a recliner. He lives alone in [place]. His daughter, Agnes, has been visiting from [place] since early October and plans to stay until pt is stable or a long- term plan is in place. M2 OT-IP Current Condition Start: 01/02/21 15:00 Freq: Status: Active Protocol: Document 01/02/21 15:00 [facility] (Rec: 01/02/21 15:17 [facility] [id number]) Occupational Therapy Current Condition Current Condition Evaluation Date 01/02/21 Treatment Diagnosis Bilateral knee and ankle pain, weakness, decreased mobility Diagnosis Onset Date 01/01/21 M3 OT- IP Subjective and Pain Start: 01/02/21 15:00 Freq: Status: Active Protocol: Document 01/02/21 15:00 [facility] (Rec: 01/02/21 15:17 [facility] [id number]) OT- Subjective Occupational Therapy Visit Type Type Initial Evaluation Visit Start Time 14:37 Visit Stop Time 14:56 Total Visit Minutes 19 Occupational Therapy Visit Comments Patient Comments Pt agreed to get up so nursing able to look at his bottom and also to get a waffle cushion underneath him while in bed. Patient/Caregiver Goals TO get stronger. OT Pain Assessment Pain When Pain Assessed At Rest Pain Present Pain Present Denied Pain M4 OT- IP ADL's Start: 01/02/21 15:00 Freq: Status: Active Protocol: Document 01/02/21 15:00 [facility] (Rec: 01/02/21 15:17 [facility] [id number]) OT [id number] Comments OT Self-Feeding Comments NOt at meal time. OT ADL-Grooming General Evaluation Grooming Ability Standby Assistance Areas Needing Assistance Retrieving/Set-up of Grooming Items Comments OT Grooming Comments Pt able to wash his face after wash cloth given. OT ADL-Oral Care Comments Oral Care Comments Not performed. OT ADL-Dressing General Eval Lower Body Dressing Ability Maximum Assistance Areas Needing Assistance Underpants/Brief,Shoes Comments OT Dressing Comments Pt needing MAX A for all LB dressing needs at this time. OT ADL-Toileting General Evaluation Toileting Ability Maximum Assistance Areas Needing Assistance Manage Clothing,Perform Perineal Hygiene Comments OT Toileting Comments Assist for brief, urinal placement and for hygiene needs. OT ADL-Bathing Comments OT Bathing Comments NOt performed. M5 OT- IP IADL's Start: 01/02/21 15:00 Freq: Status: Active Protocol: Document 01/02/21 15:00 [facility] (Rec: 01/02/21 15:17 [facility] [id number]) OT-Instrumental Activities of Daily Living Medication Management Medication Management Comments Pt is forgetful and would benefit from assist for all mobility and ADl's at this time. Money Management Money Management Comments Pt is forgetful and would benefit from assist for all mobility and ADl's at this time. Meal Preparation Meal Preparation Comments Pt is forgetful and would benefit from assist for all mobility and ADl's at this time. [employer] Comments Pt is forgetful, decreased balance, and activity tolerance and would benefit from assist for all mobility and ADl's at this time. M6 OT- IP Functional Cognition Start: 01/02/21 15:00 Freq: Status: Active Protocol: Document 01/02/21 15:00 [facility] (Rec: 01/02/21 15:17 [facility] [id number]) Cognitive Factors Limiting Selfcare Function Cognitive Ability Level of Alertness Alert Patient Orientation Name Attention Span Ability Capable of Focused Attention, Capable of Sustained Attention Ability to Follow Commands Able to Follow One Step Commands with Increased Time, Able to Follow One Step Commands with Repetition Memory Description Short Term Impaired Safety Awareness Underestimates Need for Assistance Problem Solving Ability Unable to Identify Errors, Needs Assist to Identify Solutions Cognitive Comments Cognitive Assessment Comments Pt is hard of hearing and at times has difficulty to follow directions. Pt also needing increased time to follow commands. Pt needing safety cues to push up from the bed versus pr insistent to push up from the FWW. Cues to reach back with his hands before sitting down. OT- Vision and Hearing OT- Hearing Assessment OT- Hearing Assessment Hearing Impaired OT- Vision Assessment Visual Acuity Glasses All The Time M7 OT- IP Mobility and Balance Start: 01/02/21 15:00 Freq: Status: Active Protocol: Document 01/02/21 15:00 [facility] (Rec: 01/02/21 15:17 [facility] [id number]) OT- Bed Mobility Assessment Supine to Sit Supine to Sit Assist Contact Guard Assistance,1 Person Assistance,Bedrails Sit to Supine Sit to Supine Assist Minimal Assistance,1 Person Assistance OT-Transfer Assessment Sit to and From Stand Sit to and from Stand Maximum Assistance,2 Person Assistance Comments Mobility Comments MAX A x 2 to stand to FWW and needing MODA X 1 to take a small side step to the HOB with FWW. Pt tends to use a lot of momentum to assist with bed mobility needs. OT- Balance Assessment Sitting Balance and Reactions Static Sitting Balance Ability Fair Dynamic Sitting Balance Ability Fair Standing Balance and Reactions Static Standing Balance Ability Poor M8 OT- IP Objective Assessments Start: 01/02/21 15:00 Freq: Status: Active Protocol: Document 01/02/21 15:00 [facility] (Rec: 01/02/21 15:17 [facility] [id number]) OT Gross Range of Motion Upper Extremity Range of Motion Assessment Within Functional Limits OT Strength Comments Strength Comments RUE stave grader weaker than left side . OT- Coordination Assessment Upper Extremity Finger to Nose Test Within Functional Limits OT-Muscle Tone Assessment Muscle Tone WNL Yes M9 OT- IP Assessment and Plan Start: 01/02/21 15:00 Freq: Status: Active Protocol: Document 01/02/21 15:00 [facility] (Rec: 01/02/21 15:17 [facility] [id number]) OT Summary Assessment and Plan Potential Rehabilitation Potential Fair Analytic Complexity at Evaluation Moderate Summary OT Impairments Pain,Strength,Balance, Functional Cognition, Functional Mobility,Grooming, Dressing,Toileting,Bathing, Toilet Transfers,Shower Transfers,Activity Tolerance Progress Towards Goals Slow Progress due to Pain,Slow Progress due to Medical Issues,Slow Progress due to Activity Tolerance,Slow Progress due to Cognition Assessment Summary Pt MOD complexity due to barriers of pain, steps, needing extensive two person assist for ADl's and functional mobility at this time. Pt would benefit from skilled rehab as pt's current level too great for his daughter to assist pt with at this time. Goals Grooming Goal Independent Dressing Goal Minimal Assistance Toileting Goal Independent Bathing Goal Standby Assistance Toilet Transfer Goal Independent Shower Transfer Goal Standby Assistance Days to Meet Goals 10 Frequency of Treatment Frequency Of Treatment Once a Day Treatment Plan OT Treatment Plan ADL Training,Functional Cognition Training,Functional Mobility,Patient/Family Education,Discharge Planning Other Treatment Recommendations and [place] [facility] [place]. Treatment Focus Discharge Recommendations OT Discharge Recommendations Home vs SNF Other Discharge Recommendations Pending pt's progress and caregiver training skilled rehab versus home with 17/03 assist and home health. Transportation Needs at Discharge Wheelchair/Cabulance
[2021-01-02 15:20] VITALS: BP 134/48; PULSE 71; RESP 18; TEMP 36.3; O2SAT 94
--- NOTE | 2021-01-02 15:44 | PM.PN.1 ---
Subjective Subjective Date Patient Seen: 01/02/21 Time Patient Seen: 13:45 Interval history: Today he feels somewhat improved. His pain is improved. However he is still quite weak. He attempted working with PT and was max assist. His xrays do show bilateral mild joint effusions of his knees. Exam Vital Signs (past 8 hours): - 01/02/21 08:00 Temperature 97.7 F Pulse Rate 68 Respiratory Rate 20 Blood Pressure 149/77 H Pulse Oximetry 95 Oxygen Delivery Method Room Air Oxygen Flow Rate 0 Narrative Exam Narrative: GEN: no acute distress HEENT: PERRL, moist mucous membranes NECK: trachea midline, no JVD CV: RRR with no murmurs PULM: clear bilaterally, no wheezes, rhonchi, rales ABD: soft nontender, nondistended, no organomegaly, normal bowel sounds EXT: improving edema on the legs, left/right knee with mild pain with range of motion, has mild erythema on leg but no warmth, normal pulses bilaterally, no redness or effusion noted SKIN: sacral decubitus ulcer NEURO: AAOx3, moving all extremities PSYCH: Pleasant, cooperative Objective Labs Result Diagrams: 01/02/21 06:30 01/02/21 06:30 Labs: Laboratory Results - last 24 hr 01/02/21 01/02/21 06:30 06:30 WBC 10.9 RBC 3.98 L Hgb 10.6 L Hct 32.4 L MCV 81.6 MCH 26.6 MCHC 32.6 RDW 18.3 H Plt Count 317 Neut % (Auto) 81.1 H Lymph % (Auto) 7.5 L [place] % (Auto) 8.8 Eos % (Auto) 0.6 L Baso % (Auto) 2.0 Neut # (Auto) 8800 H Lymph # (Auto) 800 L [place] # (Auto) 1000 H Eos # (Auto) 100 Baso # (Auto) 200 H Sodium 134 L Potassium 4.1 Chloride 97 L Carbon Dioxide 30 BUN 28 H Creatinine 0.78 Estimated GFR > 60.0 BUN/Creatinine Ratio 35.9 H Glucose 108 Calcium 9.0 PFSH Medical History Acquired hypothyroidism (09/16/16) Actinic keratosis Basal cell carcinoma Benign prostatic hyperplasia with weak urinary stream (12/06/17) Bilateral edema of lower extremity (06/29/15) Bilateral knee pain BPH (benign prostatic hyperplasia) Colon polyps Depression (06/29/15) Depression Erectile dysfunction (02/12/16) Erectile dysfunction Essential hypertension (06/29/15) 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 George is an 85M with osteoarthtritis, HTN, BPH who comes in with worsening of chronic knee and ankle pain. 1. Bilateral knee and ankle pain, acute on chronic -uric acid normal -likely worsening osteoarthritis -knee xray has mild joint effusions bilaterally -ECHO shows no change from previous and no evidence of CHF -order pain medications for better pain control -continue allopurinol -continue PT/OT -ice knees 2. Lower extremity edema, with probable mild cellulitis -BNP slightly elevated -no evidence of chf on xray, or ECHO -on doxycycline for possible mild cellulitis, WBC improving today 2. Hypertension, chronic -continue amlodipine, atenolol 3. BPH -tamsulosin 4. Depression -continue duloxetine IVF: none Diet: low salt diet DVT ppx: lovenox Code: Full, daughter Agnes
[2021-01-02 16:05] VITALS: O2SAT 94
[2021-01-02] MEDS: HYDROCODONE/ACET 5/325 TABLET 1 TAB PO (16:05)
--- NOTE | 2021-01-02 16:10 | CM.DANOTE ---
Discharge Planning/Care Management DCP: assessment: case received, EMR reviewed and discussed in Team Rounds. Met now with pt and followed this up with a call to his daughter Agnes Lagunas here from [place] and staying with pt until a longwall headgate operator plan can be set up for his care. Payer: [facility] Admission status: OBS. Pt had a recent stay at [facility] after being in [facility] and went home with Agnes November 20. In the last week his mobility has been declining. Agnes said that she wished to discuss her father's case with Dr. Piedra who has promised to call her sometime today (he is reminded of same and will call when he gets a chance) She will also be here tomorrow in time for Team Rounds and to meet further with DCP team on for tomorrow. She is hoping her father can again have some snf time under his [place] benefit until she can again safely care for him at home. She prefers [facility]/ saying that they were full the last time a snf was needed but she is hoping pt can get in this time. Have given referral to Debra/Stacy who will review. Have spoken with Valentina/[facility] CM: [phone] and faxed the OT/PT notes. She stated she or another CM will contact us tomorrow re status of the auth. She is aware that plan is [facility] if authorized. Have spoken with Dr. Piedra with update. P: ? snf: [facility] and [facility] reviewing. ? home with Agnes and services. CM Discharge Assessment Start: 01/02/21 16:06 Freq: Status: Active Protocol: Document 01/02/21 16:06 ITV (Rec: 01/02/21 16:08 IT [id number]) Discharge Planning Assessment Advance Directives? Yes Advance Directives on File Yes History Provided By Patient,Family Member,Medical Record Prior Living Arrangements House Household Members family Comment daughter Agnes is here staying with pt until she can set up a longwall headgate operator plan for his care. Independent with ADL's No Is patient alert and oriented? alert. some memory loss Review Status In Process
--- NOTE | 2021-01-02 17:07 | DI.RAD.S_ITS ---
PROCEDURE: XR WRIST RT 2V INDICATIONS: wrist pain TECHNIQUE: 2 views of the wrist were acquired. COMPARISON: None. FINDINGS: Bones: No fractures or dislocations. No suspicious bony lesions. Moderate osteoarthritis at the right wrist. No trauma. Scaphoid view: Not obtained. Soft tissues: No suspicious soft tissue calcifications. IMPRESSION: Moderate osteoarthritis without trauma. Dictated by: Raul Honeycutt M.D. on 01/03/2021 at 8:56 Approved by: Raul Honeycutt M.D. on 01/03/2021 at 8:56
--- NOTE | 2021-01-02 17:19 | DIET.PN ---
Dietary Progress Note Assessment: 85y M c pmhx of gout, HTN, and OA admitted for weakness secondary to joint pain referred to nutrition for reported weight loss and HT: 180.3cm WT: 103.8kg UBW: 103kg BMI: 31.9 Labs:CRP 6.8 H MNA: 8 @ risk Celio: 12 high risk for skin breakdown Pt had not touched lunch when RD visited at 2pm. Pt stated it was his breakfast (Lunch was written on ticket-sliced turkey c mashed potatoes and carrots) but it didn't appeal to him. Pt reports liking vegetables, especially Maltese Blend. Pt endorses recently cutting down to 1-2 etoh equivalents daily. Pt unable to elaborate further on usual dietary intake secondary to mild dementia and asked to defer to his daughter who is currently staying with him from [place]. Pts daughter not in room during interview. Pt likes chocolate Ensure and drinks one daily,prefers room temperature. Imaging of knees and ankles show new, progressed OA c bone spurs. Pt reports 229# is his usual body weight and IH records showing weight stability x3y. Interventions: 1. Discussed c pt regular etoh intake can increase body inflammation aggravating OA of joints. 2. Recc ONS Ensure chocolate once daily secondary to low Celoi score and high risk for skin breakdown. Diet Order: HH Monitoring/Evaluations: ONS tolerance, detailed dietary intake from daughter as available
[2021-01-02] MEDS: TRAZODONE 50 MG TABLET PO (22:15)
[2021-01-02] MEDS: TAMSULOSIN 0.4 MG CAPSULE PO (22:15)
[2021-01-02] MEDS: DOXEPIN 10 MG CAPSULE PO (22:16)
[2021-01-03] VITALS: BP 121/52; PULSE 74; RESP 18; TEMP 36.3; O2SAT 95
[2021-01-03 01:16] VITALS: O2SAT 95
[2021-01-03 07:01] LABS: Hematocrit 30.7 % (41-53); Hemoglobin 10.4 g/dL (13.5-17.5); Mean Corpuscular Hemoglobin 27.6 PG (26-34); Mean Corpuscular Volume 81.3 fL (80-100); Platelet Count 315 X10^3/uL (150-400); Red Blood Cell Count 3.77 X10^6/uL (4.5-5.9); Red Cell Distribution Width 18.4 % (11.6-14.8); White Blood Cell Count 10.6 X10^3/uL (4.5-11.0)
[2021-01-03 07:10] LABS: BUN Creatinine Ratio 37.7 (6-22); Blood Urea Nitrogen 29 mg/dL (9-20); Calcium 8.9 mg/dL (8.4-10.2); Carbon Dioxide 30 mmol/L (22-32); Chloride 97 mmol/L (98-107); Estimated Glomerular Filt Rate > 60.0 mL/min (>60); Glucose 113 mg/dL (80-110); HEMOLYSIS < 15 (0-50); Potassium 4.1 mmol/L (3.4-5.1); Sodium 134 mmol/L (137-145)
[2021-01-03 08:00] VITALS: BP 133/77; PULSE 75; RESP 20; TEMP 36.2; O2SAT 96
--- NOTE | 2021-01-03 08:13 | CM.DPC ---
Addendum entered by Nicole Rhodes R.N. 01/03/21 12:48: Spoke to Valentina at [facility]. She gave an authorization number of approval of : [id number]. Called Debra at [facility] and gave her authorization number. Also, gave daughter, Debra Avila's number as well to discuss chcf care planning. Completed PASSR, and printed out med sheets and RX, faxed over to [facility]. Faxed PASSR over to [facility] as well per their request. DC Summary is pending, and patient does not need another COVID test. Refaxed over P.T. notes to [facility]. Confirmed cigar packer and picker time of 1400, patient and daughter are aware, updated white board at main nursing station, and nurse, Riri, is also aware. Original Note: DCP Cont: Spoke to [facility] Bed Worker. Patient will most likely be ready for fdc today. Will complete PASSR. Valentina indicated, he will most likely be authorized, just need P.T. notes. Went ahead and electronically faxed over notes. P: DCP to continue to follow. Patient is to most likely be discharged today to [facility]. Will see if patient will need COVID test. Nicole Rhodes RN/Bed Worker
[2021-01-03] MEDS: FAMOTIDINE 20 MG TABLET PO (09:28)
[2021-01-03] MEDS: allopurinoL 100 MG TABLET PO (09:28)
[2021-01-03] MEDS: CHOLECALCIFEROL (VITAMIN D3) 1,000 UNIT TABLET 2000 UNIT PO (09:29)
[2021-01-03] MEDS: ENOXAPARIN 40 MG/0.4 ML SYRINGE SUBCUT (09:29)
[2021-01-03] MEDS: AMLODIPINE 5 MG TABLET 10 MG PO (09:29)
[2021-01-03] MEDS: DOXYCYCLINE HYCLATE 100 MG TABLET PO (09:30)
[2021-01-03] MEDS: atenoloL 50 MG TABLET PO (09:30)
[2021-01-03] MEDS: PANTOPRAZOLE DR 40 MG TABLET PO (09:31)
[2021-01-03] MEDS: HYDROCODONE/ACET 5/325 TABLET 1 TAB PO (10:09)
--- NOTE | 2021-01-03 10:22 | P.DS_ITS ---
History of Present Illness History of Present Illness Chief complaint: Joint pain Narrative: Mr. George is an 85M PMH gout, HTN, former smoker, hypothyroid, osteoarthritis who comes in with bilateral leg pain. Over the past few days he has had worsening bilateral knee and ankle pain. He has had increased difficulty walking, and today could not ambulate due to the pain. He has had some worsening swelling in his lower extremities. He has had no fevers/chills. He did have a slow slide to fall on carpet about a week ago. In the ER workup was done and he was noted to have normal vital signs. Labs notable for WBC of 13.4, hgb 9.5, creatinine 0.78, uric acid 4.5, BNP 609. CRP 6.8, ESR 48. Chest xray showed no acute process. Vascular ultrasound showed no DVT, but edema was seen at level of ankle. He was given lasix and admitted for further treatment. Discharge Providers Provider Date of admission: 01/01/21 12:25 Discharge Date: 01/03/21 Primary care physician: Larry Roman MD Consults: 01/01/21 10:14 Consult to Physical Therapy Evaluate & Treat Comment: patient with significant pain and weakness, can no Physician Instructions: Evaluate and Treat 01/01/21 14:44 Consult to Dietitian, Adult Routine Comment: Reason For Exam: weight loss, low score on admission nutrition scre 01/01/21 21:47 Consult to Physical Therapy Evaluate & Treat Comment: Physician Instructions: Evaluate and Treat 01/02/21 10:23 Consult to Occupational Therapy Evaluate & Treat Comment: Physician Instructions: Evaluate and treat Discharge provider: Severino Piedra MD Summary Hospital Course Discharge Diagnosis: 1. Bilateral knee and ankle pain secondary to osteoarthritis 2. R wrist and thumb pain, secondary to osteoarthritis 3. Probable mild cellulitis and lower extremity edema 4. Hypertension 5. BPH 6. Duloxetine 7. Gout, chronic Hospital Course: Mr. George was admitted with inability to walk secondary to pain. He had mild erythema on his left leg and an mildly elevated white count initially so was diagnosed with presumed cellulitis. He was given a course of antibiotics for this with doxycycline for 5 days. However his pain was primarily in multiple joints, including his bilateral knees which had mild effusion, bilateral ankles, and R thumb/wrist. He did not get nsaids due to previous GI bleeding. He did get pain medications and improved. Uric acid was checked and normal, and none of his joints appear inflamed like a gout a flare. He had recently had a COVID vaccine, which has reports of joint pain, and it may be that his immune response caused a inflammatory response causing multi-joint pain. He had improved by discharge and was discharged to SNF. 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 George came in with significant joint pain in multiple joints including his right hand and thumb. His ankles, and his knees. Workup showed some slight effusion in his knees. Also his xrays showed findings consistent with osteoarthritis. He may have had worsening joint pain from the COVID vaccine. He also had what appeared to be mild skin infection on his left leg. I certify the postop hospital [facility] care is medically necessary on a continuing basis for any conditions for which he/ she received care during this hospitalization.: Yes The receiving facility has agreed to accept transfer and provide medical treatment.: Yes Discharge orders & Medications Prescriptions: New hydrocodone-acetaminophen 5-325 mg Tablet 1 tab PO Q4HR PRN (Reason: Pain, Moderate (4-6)) Qty: 10 RF: 0 trazodone 50 mg Tablet 50 mg PO BEDTIME Qty: 6 RF: 0 doxycycline hyclate 100 mg capsule 100 mg PO BID Qty: 6 RF: 0 Continued cholecalciferol (vitamin D3) 50 mcg (2,000 unit) Tablet 50 mcg PO DAILY RF: 0 Adult Probiotic 3 billion cell Capsule 3,000 mmu cells PO DAILY RF: 0 allopurinol 100 mg tablet 100 mg PO DAILY RF: 0 atenolol 50 mg tablet 50 mg PO BID RF: 0 amlodipine 10 mg PO DAILY RF: 0 acetaminophen 650 mg Tablet 650 mg PO Q4H PRN (Reason: pain) RF: 0 tamsulosin [Flomax] 0.4 mg Capsule 0.4 mg PO BEDTIME RF: 0 pantoprazole 40 mg tablet,delayed release (DR/EC) 40 mg PO BID RF: 0 duloxetine 20 mg Capsule,Delayed Release(Dr/Ec) 20 mg PO DAILY RF: 0 famotidine 20 mg Tablet 20 mg PO BID RF: 0 Discontinued Centrum Silver Tablet 1 tab PO DAILY RF: 0 doxepin 10 mg capsule 10 mg PO QPM RF: 0 hydrocodone-acetaminophen 10-325 mg tablet 1 tab PO PRN PRN (Reason: Pain (Scale Score 4-6)) RF: 0 trazodone 50 mg Tablet 50 mg PO BEDTIME RF: 0 Follow up/Referrals: Larry Roman MD [Primary Care Provider] - Discharge Data Primary Care Provider: Larry Roman Attending Provider: Severino Piedra
--- NOTE | 2021-01-03 10:37 | PT.IPTN ---
Physical Therapy Treatment Note M2 PT-IP Current Condition Start: 01/01/21 10:56 Freq: Status: Discharge Protocol: Document 01/01/21 12:22 AW (Rec: 01/01/21 13:00 AW [id number]) Physical Therapy Current Condition Current Condition Evaluation Date 01/01/21 Treatment Diagnosis weakness, SOB, PI buttocks; impaired mobility and gait Onset Date 01/01/21 Precautions Other Precautions pressure injuries bilateral buttocks M3 PT-IP Subjective Start: 01/01/21 10:56 Freq: Status: Discharge Protocol: Document 01/03/21 09:55 SP (Rec: 01/03/21 14:16 SP [id number]) Subjective Physical Therapy Visit Type Type Treatment Note Visit Start Time 09:55 Visit Stop Time 10:37 Total Visit Minutes 42 Notes Daughter completed caregiver training and physical assist required during tx. Hospialist arrived during tx for further assessment. Number of MANAGER TELEMETRY Visits 1 Physical Therapy Visit Comments Patient Comments Pt willing to work with therapy Patient Goals Maintain independence, hoping to return home Therapy Pain Assessment Pain When Pain Assessed During Mobility Pain Present Pain Present Pain Reported Location bilateral ankles Scale Used arches during gait, no scale quantified Pain Behaviors Facial Grimacing,Wincing Pain Management Techniques Distraction,Modification of Treatment bilateral knees Intensity 4 Scale Used Numeric (0 - 10) Description With Movement Pain Behaviors Facial Grimacing,Wincing Pain Management Techniques Apply Cold,Elevation, Modification of Treatment,Re- positioning,Timing of Activity with Medications M4 PT-IP Mobility and Gait Start: 01/01/21 10:56 Freq: Status: Discharge Protocol: Document 01/03/21 09:55 SP (Rec: 01/03/21 14:16 SP [id number]) PT-Bed Mobility Assessment Supine to Sit Supine to Sit Standby Assistance,Head of Bed Elevated,Bedrails Sit to Supine Sit to Supine Standby Assistance,Bedrails Scooting Scooting to Edge of Bed Standby Assistance Scooting Up and Down in Bed Standby Assistance PT-Transfer Assessment Sit to and From Stand Sit to and from Stand Contact Guard Assistance, Minimal Assistance,1 Person Assistance,Use of Upper Extremities Equipment Transfer Assistive Device Gait Belt,Front Wheeled Walker Orthotic/Prosthetic Devices or Brace: No Transfers Transfer Destination Bed,Wheelchair Transfer Technique pt ambulated using FWW Transfer Ability Level of Assist Contact Guard Assistance,1 Person Assistance,Use of Upper Extremities Comments Mobility Comments Pt was elevated in bed when arrived. Supine>sit HOB elevated sBA, Sit>stand Min A with safety cuing for BUE support on bed to stand. Pt ambulated further distance into hallway approx 133 ft w/ w/c follow intermittent cuing for body closer to FWW and 3 stopped stand rests due to decreased strength and activity tolerance. Pt required rest at stairs in w/c due to pain in B knees and arch of feet. Pt able to ascend/ descend 3 stairs Mod A x1 ascend and Mod A x2 using SPC L HR and SPC in RUE as patterns at home step to patterning. SPT using fWW and descend into w/c. Pt unable to complete 5 steps as to enter home at this time. Pt unable to walk further distance due to pain and decreased activity tolerance. MANAGER TELEMETRY wheeled pt back to room. Sit>stand from w /c CGA, gait 5 ft to bed using fWW SBA to EOB, requested use of waffle cushion for under pelvis, provided placement under transfer pad, stand>sit CGA, sit>supine and scoot up in bed self sBA. Pt had call light, bed alarmed and all needs in reach with daughter in room when left. MANAGER TELEMETRY recommended further skilled PT to improve strength and activitiy tolerance to get into home. Pt end tx in agreement to DC to SNF. Gait Assessment Gait Gait Assistance Required: Contact Guard Assist,1 Person Assist Distance (Feet) 133 Able to Maintain Weight Bearing Status Yes During Gait Assistive Devices Assistive Device Gait Belt,Front Wheeled Walker Orthotic/Prosthetic Devices or Brace: No Gait Deviations General Gait Pattern Antalgic,Decreased Stride Length,Decreased Feet Clearance,Flexed Trunk,Wide Based Gait Factors Limiting Gait Function Factors Limiting Gait Function Decreased Activity Tolerance, Decreased Strength,Limited Range of Motion,Pain,Poor Balance,Poor Safety Awareness Comments Gait Comments Pt required sBA during bed mob , Min A initially sit>stand from EOB, decreased to CGA using FWW, gait CGA using FWW w/c follow, stair mgt Mod x1- 2 persons. Recommending SNF at this time for increased strength and activitiy tolerance to improve functional independence. Stair Climbing Assessment Evaluation Level of Assist On Stairs Minimal Assistance,Moderate Assistance,2 Person Assistance Devices Stair Climbing Assistive Devices Straight Cane,Left Railing Technique/Endurance Stair Climbing Direction Ascend and Descend Stair Climbing Technique Step to Step Number of Steps Climbed 3 Stair Climbing Set # Repetitions (reps) 1 Comments Stair Climbing Comments see mobility comments PT-Balance Assessment Sitting Balance and Reactions Static Sitting Balance Ability Good Dynamic Sitting Balance Ability Good Standing Balance and Reactions Static Standing Balance Ability Fair Dynamic Standing Balance Ability Fair Device Used FWW M5 PT-IP Objective Assessments Start: 01/01/21 10:56 Freq: Status: Discharge Protocol: Document 01/01/21 12:22 AW (Rec: 01/01/21 13:00 AW [id number]) Orientation Orientation/Cognition Level of Alertness Alert Orientation Name,Day of Week,Place, Situation Language Function Ability Hard of Hearing Safety Awareness Decreased Safety Awareness Memory Description Short Term Impaired Comments Pt has documented SLUMS score of 18/30 from November 2020. He is easily irritated but redirectable. Gross Range of Motion Upper Extremity ROM Assessment Right Impaired Impairments R wrist painful ROM Lower Extremity ROM Assessment Bilaterally Impaired Impairments -lacking TKE bilaterally -active dorsiflexion only to neutral -painful left knee flexion beyond 80 degrees Strength Lower Extremity Strength Assessment Bilaterally Impaired Hip B 3+/5 Knee R 4/5; L 3+/5 Ankle B 4/5 Sensation Assessment Sensation Gross Sensation WNL M6 PT-IP Treatment Start: 01/01/21 10:56 Freq: Status: Discharge Protocol: Document 01/03/21 09:55 SP (Rec: 01/03/21 14:16 SP [id number]) Physical Therapy Treatment Education Education Provided Safety M7 PT-IP Assessment and Plan Start: 01/01/21 10:56 Freq: Status: Discharge Protocol: Document 01/03/21 09:55 SP (Rec: 01/03/21 14:16 SP [id number]) PT Summary Assessment and Plan Potential Rehabilitation Potential Fair Status of Condition at Evaluation Evolving Summary Impairments Pain,ROM,Strength,Balance, Cognition,Bed Mobility, Transfers,Gait,Activity Tolerance Progress Towards Goals Slow Progress due to Pain,Slow Progress due to Activity Tolerance,Slow Progress - Other Assessment Summary Pt requires sBA during bed mob , CG- Min A during transfers and gait using fWW w/c follow due to decreased strength and activitiy tolerance, stair mgt Mod A x1-2 persons. Recommending SNF upon DC for improvement in strength, activitiy tolerance using LRAD toward functional mobility before return home. Goals Bed Mobility Goal Contact Guard Assistance Transfer Goal Independent,Front Wheeled Walker Gait Goal Independent,Front Wheel Walker Gait Distance 120 Other Goals - up/down 5 steps with left rail ascending SBA Days to Meet Goals 5 Frequency of Treatment Frequency Of Treatment Once a Day Treatment Plan Physical Therapy Treatment Plan Bed Mobility Training,Transfer Training,Gait Training, Therapeutic Exercise,Balance Retraining,Discharge Planning, Hot or Cold Pack,Neuromuscular Re-ed,Coordination Retraining Other Recommendations and Next Treatment gait, LE exercises, stair mgt Focus x5 steps L HR and SPC. Precautions Other Precautions -pressure injuries bilateral buttocks -falls Recommendations To Nursing Amount of Assist Needed 1 Person Assist Discharge Recommendations PT Discharge Recommendations SNF Rehab Transportation Needs at Discharge Private Vehicle,Wheelchair/ Cabulance
--- NOTE | 2021-01-03 13:51 | PC.NURSE ---
Given Vicodin earlier for comlaints of neck pain. Patient doing better today, he is a one person assist with gaitbelt and walker, he ambulated in the hallways. Will be going to SNF at 1400, personal items packed and daughter in room with patient.
== END 2021-01-03 14:09 ==
LOC: ED 12:24 → AC 12:26
PROVIDERS: Admitting Provider Internal Medicine; Emergency Provider Emergency Medicine; Family Provider Student in an Organized Health Care Education/Training Program; PCP Student in an Organized Health Care Education/Training Program; Referring Provider Emergency Medicine; Visit Provider Internal Medicine
DX: R06.02 Shortness of breath (principal); R07.89 Other chest pain; R60.0 Localized edema; R53.1 Weakness; M17.0 Bilateral primary osteoarthritis of knee; M19.072 Primary osteoarthritis, left ankle and foot; M19.071 Primary osteoarthritis, right ankle and foot; M1A.9XX0 Chronic gout, unspecified, without tophus (tophi); M79.662 Pain in left lower leg; M79.661 Pain in right lower leg; M79.89 Other specified soft tissue disorders; I10 Essential (primary) hypertension; N40.0 Benign prostatic hyperplasia without lower urinary tract symptoms; F32.9 Major depressive disorder, single episode, unspecified; Z87.891 Personal history of nicotine dependence; Z20.822 Contact with and (suspected) exposure to COVID-19
CPT/HCPCS: 36415; 71045; 73100; 73560; 73600; 80048; 81001; 82550; 83880; 84484; 84550; 85025; 85027; 85651; 86140; 87086; 87635; 93005; 93010; 93306; 93971; 96372; 96374; 96375; 96376; 97116; 97162; 97166; 97530; 99284; C9803; G0378; A9270; J1650; J1940; J2270

== ENCOUNTER → 2021-01-18 10:40 | Outpatient (CLI) | payer OTHER, SELFPAY ==
[2021-01-12 09:20] VITALS: BMI 31.9
== END ==
PROVIDERS: Family Provider Student in an Organized Health Care Education/Training Program; PCP Student in an Organized Health Care Education/Training Program; Referring Provider Student in an Organized Health Care Education/Training Program; Visit Provider Family Medicine
DX: L89.313 Pressure ulcer of right buttock, stage 3 (principal); R41.89 Other symptoms and signs involving cognitive functions and awareness; Z74.09 Other reduced mobility; Z87.891 Personal history of nicotine dependence
CPT/HCPCS: 11042; 99204; 99213

== ENCOUNTER 2021-01-19 11:56 | Emergency (ER) | payer OTHER, SELFPAY ==
[2021-01-12 09:20] VITALS: BMI 31.9
[2021-01-19 12:20] VITALS: BP 131/59; PULSE 73; RESP 16; TEMP 36.6; O2SAT 94; BMI 31.9
[2021-01-19 12:56] LABS: Add Manual Diff / Slide Review NO; Basophils Absolute Auto 0 /uL (0-100); Basophils Percent Auto 0.4 % (0-2); Eosinophils Absolute Auto 200 /uL (0-450); Eosinophils Percent Auto 2.8 % (2-4); Hemoglobin 10.6 g/dL (13.5-17.5); Lymphocytes Absolute Auto 700 /uL (1100-4500); Lymphocytes Percent Auto 11.2 % (25-40); Mean Corpuscular HGB Conc 32.2 % (30-36); Mean Corpuscular Hemoglobin 26.2 PG (26-34); Mean Corpuscular Volume 81.3 fL (80-100); Monocytes Absolute Auto 600 /uL (0-900); Monocytes Percent Auto 9.2 % (3-14); Neutrophils Absolute Auto 4900 /uL (1500-7000); Neutrophils Percent Auto 76.4 % (50-75); Platelet Count 275 X10^3/uL (150-400); Red Blood Cell Count 4.06 X10^6/uL (4.5-5.9); Red Cell Distribution Width 18.7 % (11.6-14.8); White Blood Cell Count 6.4 X10^3/uL (4.5-11.0)
[2021-01-19 13:02] LABS: Prothrombin Time 11.6 SECONDS (10.1-12.7)
[2021-01-19 13:04] LABS: PTT Partial Thromboplastin Tim 32 SECONDS (26.4-36.2)
[2021-01-19 13:06] LABS: Alanine Aminotransferase 16 IU/L (<50); Albumin 3.8 g/dL (3.5-5.0); Albumin Globulin Ratio 0.8 (1.0-2.8); Alkaline Phosphatase 103 U/L (38-126); Aspartate Aminotransferase 30 IU/L (17-59); BUN Creatinine Ratio 24.4 (6-22); Bilirubin Total 0.2 mg/dL (0.2-1.3); Blood Urea Nitrogen 20 mg/dL (9-20); Calcium 9.3 mg/dL (8.4-10.2); Carbon Dioxide 31 mmol/L (22-32); Chloride 98 mmol/L (98-107); Estimated Glomerular Filt Rate > 60.0 mL/min (>60); Globulin 4.6 g/dL (1.7-4.1); Glucose 114 mg/dL (80-110); HEMOLYSIS < 15 (0-50); Potassium 3.7 mmol/L (3.4-5.1); Sodium 136 mmol/L (137-145); Total Protein 8.4 g/dL (6.3-8.2)
[2021-01-19 13:39] LABS: Bacteria Urine None Seen; WBC Urine None Seen (0-5/HPF)
[2021-01-19 13:48] LABS: Culture Indicated Urine Cult Not Indicated; RBC Urine 10-30/HPF (0-5/HPF)
--- NOTE | 2021-01-19 16:19 | ED.GIBLEED ---
HPI - GI Bleed General Chief complaint: GI Bleed Stated complaint: Poss Internal Bleeding, Dark Stool,HX Bleeding Urs Time Seen by Provider: 01/19/21 13:52 Source: patient Mode of arrival: Wheelchair Limitations: no limitations Related Data Home Medications Medication Instructions Recorded Confirmed cholecalciferol (vitamin D3) 50 mcg PO DAILY 11/25/20 01/18/21 Adult Probiotic 3,000 mmu cells PO DAILY 01/01/21 01/18/21 acetaminophen 650 mg PO Q4H PRN 01/01/21 01/18/21 allopurinol 100 mg PO DAILY 01/01/21 01/18/21 atenolol 50 mg PO BID 01/01/21 01/18/21 famotidine 20 mg PO BID 01/01/21 01/18/21 tamsulosin [Flomax] 0.4 mg PO BEDTIME 01/01/21 01/18/21 Previous Rx's Medication Instructions Recorded doxycycline hyclate 100 mg PO BID #6 cap 01/03/21 hydrocodone-acetaminophen 1 tab PO Q4HR PRN #10 tab 01/03/21 amlodipine 10 mg tablet See Rx Instructions .ROUTE 01/12/21 .COMPLEX #90 tablet duloxetine 20 mg capsule,delayed 20 mg PO DAILY #90 cap 01/12/21 release pantoprazole 40 mg tablet,delayed 40 mg PO BID #90 tab 01/12/21 release trazodone 100 mg tablet 100 mg PO BEDTIME #180 tab 01/12/21 Allergies Allergy/AdvReac Type Severity Reaction Status Date / Time No Known Drug Allergies Allergy Verified 01/19/21 12:25 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) Hemorrhoids Hyperlipemia Hypertension Hyperthyroidism Insomnia Obstructive sleep apnea Osteoarthritis Papules Primary insomnia (09/16/16) Pure hypercholesterolemia (02/12/16) Squamous cell carcinoma Surgical History History of ectropion repair (10/2017) Hx of surgical procedure Family History Family/Other Unknown family medical history Social History household members: family Smoking Status: Former smoker Smoking Status: Former smoker tobacco type: cigarettes alcohol intake frequency: 0-2 drinks per day Alcohol type: hard liquor Substance Use Type: does not use Exam Initial Vital Signs Initial Vital Signs: Vital Signs Temperature 97.8 F 01/19/21 12:20 Pulse Rate 73 01/19/21 12:20 Respiratory Rate 16 01/19/21 12:20 Blood Pressure 131/59 L 01/19/21 12:20 Pulse Oximetry 94 01/19/21 12:20 Course Orders Ordered: ED Orders 01/19/21 12:29 EKG-12 Lead Stat 01/19/21 12:35 Complete Blood Count AUTO DIFF Stat Comprehensive Metabolic Panel Stat Partial Thromboplastin Time Stat Prothrombin Time INR Stat Type and Screen Stat 01/19/21 13:20 Urine Microscopic Stat Vital Signs Vital signs: Vital Signs - 8 hr 01/19/21 12:20 01/19/21 16:30 Temperature 97.8 F Pulse Rate 73 71 Respiratory Rate 16 18 Blood Pressure 131/59 L 149/65 H Pulse Oximetry 94 93 MDM - GI Bleed Lab Data Attestation: I reviewed the patient's lab results. Result diagrams: 01/19/21 12:35 01/19/21 12:35 Labs: Lab Results 01/19/21 01/19/21 01/19/21 Range/Units 12:35 12:35 12:35 WBC 6.4 (4.5-11.0) X10^3/uL RBC 4.06 L (4.5-5.9) X10^6/uL Hgb 10.6 L (13.5-17.5) g/dL Hct 33.0 L (41-53) % MCV 81.3 (80-100) fL MCH 26.2 (26-34) PG MCHC 32.2 (30-36) % RDW 18.7 H (11.6-14.8) % Plt Count 275 (150-400) X10^3/uL Neut % (Auto) 76.4 H (50-75) % Lymph % (Auto) 11.2 L (25-40) % [place] % (Auto) 9.2 (3-14) % Eos % (Auto) 2.8 (2-4) % Baso % (Auto) 0.4 (0-2) % Neut # (Auto) 4900 (3008-7797) /uL Lymph # (Auto) 700 L (7599-4862) /uL [place] # (Auto) 600 (0-900) /uL Eos # (Auto) 200 (0-450) /uL Baso # (Auto) 0 (0-100) /uL PT 11.6 (10.1-12.7) SECONDS INR 1.0 (0.9-1.3) APTT 32 (26.4-36.2) SECONDS Sodium 136 L (137-145) mmol/L Potassium 3.7 (3.4-5.1) mmol/L Chloride 98 (98-107) mmol/L Carbon Dioxide 31 (22-32) mmol/L BUN 20 (9-20) mg/dL Creatinine 0.82 (0.66-1.25) mg/dL Estimated GFR > 60.0 (>60) mL/min BUN/Creatinine Ratio 24.4 H (6-22) Glucose 114 H (80-110) mg/dL Calcium 9.3 (8.4-10.2) mg/dL Total Bilirubin 0.2 (0.2-1.3) mg/dL AST 30 (17-59) IU/L ALT 16 (<50) IU/L Alkaline Phosphatase 103 (38-126) U/L Total Protein 8.4 H (6.3-8.2) g/dL Albumin 3.8 (3.5-5.0) g/dL Globulin 4.6 H (1.7-4.1) g/dL Albumin/Globulin Ratio 0.8 L (1.0-2.8) Urine RBC (0-5/HPF) Urine WBC (0-5/HPF) Urine Bacteria (None) Ur Culture Indicated? Blood Type Antibody Screen 01/19/21 01/19/21 Range/Units 12:35 13:20 WBC (4.5-11.0) X10^3/uL RBC (4.5-5.9) X10^6/uL Hgb (13.5-17.5) g/dL Hct (41-53) % MCV (80-100) fL MCH (26-34) PG MCHC (30-36) % RDW (11.6-14.8) % Plt Count (150-400) X10^3/uL Neut % (Auto) (50-75) % Lymph % (Auto) (25-40) % [place] % (Auto) (3-14) % Eos % (Auto) (2-4) % Baso % (Auto) (0-2) % Neut # (Auto) (2109-3594) /uL Lymph # (Auto) (6836-0070) /uL [place] # (Auto) (0-900) /uL Eos # (Auto) (0-450) /uL Baso # (Auto) (0-100) /uL PT (10.1-12.7) SECONDS INR (0.9-1.3) APTT (26.4-36.2) SECONDS Sodium (137-145) mmol/L Potassium (3.4-5.1) mmol/L Chloride (98-107) mmol/L Carbon Dioxide (22-32) mmol/L BUN (9-20) mg/dL Creatinine (0.66-1.25) mg/dL Estimated GFR (>60) mL/min BUN/Creatinine Ratio (6-22) Glucose (80-110) mg/dL Calcium (8.4-10.2) mg/dL Total Bilirubin (0.2-1.3) mg/dL AST (17-59) IU/L ALT (<50) IU/L Alkaline Phosphatase (38-126) U/L Total Protein (6.3-8.2) g/dL Albumin (3.5-5.0) g/dL Globulin (1.7-4.1) g/dL Albumin/Globulin Ratio (1.0-2.8) Urine RBC 10-30/hpf H (0-5/HPF) Urine WBC None seen (0-5/HPF) Urine Bacteria None seen (None) Ur Culture Indicated? Cult not indicated Blood Type B Positive Antibody Screen Negative Urine Dip Bedside Urine Glucose Negative Bedside Urine Bilirubin - Negative Bedside Urine Ketone - Negative Urine Specific [place] 1.015 Bedside Urine Occult Blood +++ Bedside Urine pH 6.0 Bedside Urine Protein + 30 Bedside Urine Urobilinogen - Negative Bedside Urine Nitrite - Negative Bedside Urine Leukocytes - Negative Esterase Discharge Plan Departure Clinical Impression: Hematuria Prescriptions: No Action duloxetine 20 mg capsule,delayed release(DR/EC) 20 mg PO DAILY Qty: 90 RF: 1 amlodipine 10 mg tablet See Rx Instructions .ROUTE .COMPLEX Qty: 90 RF: 3 pantoprazole 40 mg tablet,delayed release (DR/EC) 40 mg PO BID Qty: 90 RF: 3 trazodone 100 mg tablet 100 mg PO BEDTIME Qty: 180 RF: 3 cholecalciferol (vitamin D3) 50 mcg (2,000 unit) Tablet 50 mcg PO DAILY RF: 0 Adult Probiotic 3 billion cell Capsule 3,000 mmu cells PO DAILY RF: 0 allopurinol 100 mg tablet 100 mg PO DAILY RF: 0 atenolol 50 mg tablet 50 mg PO BID RF: 0 acetaminophen 650 mg Tablet 650 mg PO Q4H PRN (Reason: pain) RF: 0 tamsulosin [Flomax] 0.4 mg Capsule 0.4 mg PO BEDTIME RF: 0 famotidine 20 mg Tablet 20 mg PO BID RF: 0 hydrocodone-acetaminophen 5-325 mg Tablet 1 tab PO Q4HR PRN (Reason: Pain, Moderate (4-6)) Qty: 10 RF: 0 doxycycline hyclate 100 mg capsule 100 mg PO BID Qty: 6 RF: 0 Referrals: Larry Roman MD [Primary Care Provider] -
[2021-01-19 16:30] VITALS: BP 149/65; PULSE 71; RESP 18; O2SAT 93
--- NOTE | 2021-01-19 17:23 | PC.NURSE ---
Assisted pt to use the urinal, at the end of his stream he had a small amount of blood that continued to dribble from the Urethral opening
--- NOTE | 2021-01-19 17:47 | ED_ITS ---
HPI - GI Bleed General Chief complaint: GI Bleed Stated complaint: Poss Internal Bleeding, Dark Stool,HX Bleeding Urs Time Seen by Provider: 01/19/21 13:52 Source: patient Mode of arrival: Wheelchair Limitations: no limitations History of Present Illness HPI Narrative: Patient is a 85-year-old male who with a history of GI bleed not on anticoagulation presenting with hematuria and black stools for the last 24 hours. He previously was admitted at [facility] earlier this year for GI bleeding for 10 days. Daughter now states that he has blood in his urine. He denies any symptoms. He has no chest pain or shortness of breath no abdominal pain no nausea or vomiting. Concerned for black stools based on his history. He states that he is lazy and not fatigued. Patient was admitted recently January 01 to January 03 for dehydration and pain. MD complaint: melena Onset (ago): day(s) Pain Consistency: constant Severity: mild Relieving factors: none Related Data Home Medications Medication Instructions Recorded Confirmed cholecalciferol (vitamin D3) 50 mcg PO DAILY 11/25/20 01/18/21 Adult Probiotic 3,000 mmu cells PO DAILY 01/01/21 01/18/21 acetaminophen 650 mg PO Q4H PRN 01/01/21 01/18/21 allopurinol 100 mg PO DAILY 01/01/21 01/18/21 atenolol 50 mg PO BID 01/01/21 01/18/21 famotidine 20 mg PO BID 01/01/21 01/18/21 tamsulosin [Flomax] 0.4 mg PO BEDTIME 01/01/21 01/18/21 Previous Rx's Medication Instructions Recorded doxycycline hyclate 100 mg PO BID #6 cap 01/03/21 hydrocodone-acetaminophen 1 tab PO Q4HR PRN #10 tab 01/03/21 amlodipine 10 mg tablet See Rx Instructions .ROUTE 01/12/21 .COMPLEX #90 tablet duloxetine 20 mg capsule,delayed 20 mg PO DAILY #90 cap 01/12/21 release pantoprazole 40 mg tablet,delayed 40 mg PO BID #90 tab 01/12/21 release trazodone 100 mg tablet 100 mg PO BEDTIME #180 tab 01/12/21 Allergies Allergy/AdvReac Type Severity Reaction Status Date / Time No Known Drug Allergies Allergy Verified 05/28/21 12:25 Review of Systems Review of Systems ROS Unobtainable: All systems reviewed & are unremarkable except as noted in HPI and below Constitutional Constitutional: Denies chills, Denies fever(s), Denies headache(s), Denies lethargy and Denies weakness ENT Ears, Nose, Mouth, and Throat: Denies headache(s) Cardiovascular Cardiovascular: Denies chest pain, Denies irregular heart rhythm, Denies lightheadedness, Denies palpitations, Denies dyspnea, Denies dyspnea on exertion and Denies orthopnea Respiratory Respiratory: Denies cough, Denies dyspnea, Denies dyspnea on exertion and Denies wheezing Gastrointestinal Gastrointestinal: Denies abdominal pain, Denies change in bowel habits, Denies diarrhea, Denies nausea and Denies vomiting Musculoskeletal Musculoskeletal: Denies back pain and Denies myalgias Integumentary/Breasts Skin/Breast: Denies pruritus, Denies erythema, Denies rash and Denies wounds Neurologic Neurologic: Denies headache(s) and Denies weakness Endocrine Endocrine: Denies palpitations Allergic/Immunologic Allergic/Immunologic: Denies wheezing 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) Hemorrhoids Hyperlipemia Hypertension Hyperthyroidism Insomnia Obstructive sleep apnea Osteoarthritis Papules Primary insomnia (09/16/16) Pure hypercholesterolemia (02/12/16) Squamous cell carcinoma Surgical History History of ectropion repair (10/2017) Hx of surgical procedure Family History Family/Other Unknown family medical history Social History household members: family Smoking Status: Former smoker Smoking Status: Former smoker tobacco type: cigarettes alcohol intake frequency: 0-2 drinks per day Alcohol type: hard liquor Substance Use Type: does not use Exam Initial Vital Signs Initial Vital Signs: Vital Signs Temperature 97.8 F 01/19/21 12:20 Pulse Rate 73 01/19/21 12:20 Respiratory Rate 16 01/19/21 12:20 Blood Pressure 131/59 L 01/19/21 12:20 Pulse Oximetry 94 01/19/21 12:20 GENERAL: Alert well-appearing 85-year-old HEENT: Head atraumatic,EOMI, pupils reactive, face symmetric, moist mucous membranes= CARDIOVASCULAR: Regular rate and rhythm without murmurs, rubs or gallops. RESPIRATORY: Breath sounds equal bilaterally, no wheezes rales or rhonchi. ABDOMEN: Soft, nontender. Normoactive bowel sounds all 4 quadrants. No guarding or rebound. RECTAL: Hemoccult-negative, no hemorrhoids, nontender EXTREMITIES: Normal range of motion, no clubbing or edema. Neurovascularly intact NEUROLOGICAL: Alert and oriented x4.Normal gait and speech. Cranial nerves II through XII grossly intact. 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 Course Orders Ordered: ED Orders 01/19/21 12:29 EKG-12 Lead Stat 01/19/21 12:35 Complete Blood Count AUTO DIFF Stat Comprehensive Metabolic Panel Stat Partial Thromboplastin Time Stat Prothrombin Time INR Stat Type and Screen Stat 01/19/21 13:20 Urine Microscopic Stat Vital Signs Vital signs: Vital Signs - 8 hr 01/19/21 16:30 01/19/21 18:25 Pulse Rate 71 79 Respiratory Rate 18 Blood Pressure 149/65 H 166/72 H Pulse Oximetry 93 94 MDM - GI Bleed Lab Data Attestation: I reviewed the patient's lab results. Result diagrams: 01/19/21 12:35 01/19/21 12:35 Labs: Lab Results 01/19/21 01/19/21 01/19/21 Range/Units 12:35 12:35 12:35 WBC 6.4 (4.5-11.0) X10^3/uL RBC 4.06 L (4.5-5.9) X10^6/uL Hgb 10.6 L (13.5-17.5) g/dL Hct 33.0 L (41-53) % MCV 81.3 (80-100) fL MCH 26.2 (26-34) PG MCHC 32.2 (30-36) % RDW 18.7 H (11.6-14.8) % Plt Count 275 (150-400) X10^3/uL Neut % (Auto) 76.4 H (50-75) % Lymph % (Auto) 11.2 L (25-40) % [place] % (Auto) 9.2 (3-14) % Eos % (Auto) 2.8 (2-4) % Baso % (Auto) 0.4 (0-2) % Neut # (Auto) 4900 (9993-3805) /uL Lymph # (Auto) 700 L (2988-5479) /uL [place] # (Auto) 600 (0-900) /uL Eos # (Auto) 200 (0-450) /uL Baso # (Auto) 0 (0-100) /uL PT 11.6 (10.1-12.7) SECONDS INR 1.0 (0.9-1.3) APTT 32 (26.4-36.2) SECONDS Sodium 136 L (137-145) mmol/L Potassium 3.7 (3.4-5.1) mmol/L Chloride 98 (98-107) mmol/L Carbon Dioxide 31 (22-32) mmol/L BUN 20 (9-20) mg/dL Creatinine 0.82 (0.66-1.25) mg/dL Estimated GFR > 60.0 (>60) mL/min BUN/Creatinine Ratio 24.4 H (6-22) Glucose 114 H (80-110) mg/dL Calcium 9.3 (8.4-10.2) mg/dL Total Bilirubin 0.2 (0.2-1.3) mg/dL AST 30 (17-59) IU/L ALT 16 (<50) IU/L Alkaline Phosphatase 103 (38-126) U/L Total Protein 8.4 H (6.3-8.2) g/dL Albumin 3.8 (3.5-5.0) g/dL Globulin 4.6 H (1.7-4.1) g/dL Albumin/Globulin Ratio 0.8 L (1.0-2.8) Urine RBC (0-5/HPF) Urine WBC (0-5/HPF) Urine Bacteria (None) Ur Culture Indicated? Blood Type Antibody Screen 01/19/21 01/19/21 Range/Units 12:35 13:20 WBC (4.5-11.0) X10^3/uL RBC (4.5-5.9) X10^6/uL Hgb (13.5-17.5) g/dL Hct (41-53) % MCV (80-100) fL MCH (26-34) PG MCHC (30-36) % RDW (11.6-14.8) % Plt Count (150-400) X10^3/uL Neut % (Auto) (50-75) % Lymph % (Auto) (25-40) % [place] % (Auto) (3-14) % Eos % (Auto) (2-4) % Baso % (Auto) (0-2) % Neut # (Auto) (6536-2935) /uL Lymph # (Auto) (1309-8258) /uL [place] # (Auto) (0-900) /uL Eos # (Auto) (0-450) /uL Baso # (Auto) (0-100) /uL PT (10.1-12.7) SECONDS INR (0.9-1.3) APTT (26.4-36.2) SECONDS Sodium (137-145) mmol/L Potassium (3.4-5.1) mmol/L Chloride (98-107) mmol/L Carbon Dioxide (22-32) mmol/L BUN (9-20) mg/dL Creatinine (0.66-1.25) mg/dL Estimated GFR (>60) mL/min BUN/Creatinine Ratio (6-22) Glucose (80-110) mg/dL Calcium (8.4-10.2) mg/dL Total Bilirubin (0.2-1.3) mg/dL AST (17-59) IU/L ALT (<50) IU/L Alkaline Phosphatase (38-126) U/L Total Protein (6.3-8.2) g/dL Albumin (3.5-5.0) g/dL Globulin (1.7-4.1) g/dL Albumin/Globulin Ratio (1.0-2.8) Urine RBC 10-30/hpf H (0-5/HPF) Urine WBC None seen (0-5/HPF) Urine Bacteria None seen (None) Ur Culture Indicated? Cult not indicated Blood Type B Positive Antibody Screen Negative Urine Dip Bedside Urine Glucose Negative Bedside Urine Bilirubin - Negative Bedside Urine Ketone - Negative Urine Specific [place] 1.015 Bedside Urine Occult Blood +++ Bedside Urine pH 6.0 Bedside Urine Protein + 30 Bedside Urine Urobilinogen - Negative Bedside Urine Nitrite - Negative Bedside Urine Leukocytes - Negative Esterase ECG Data Attestation: I personally reviewed and interpreted this ECG as follows: Prior ECG tracings: available for review Interpretation: Normal sinus rhythm rate 69 pr interval 176 QRS [address] changes similar to prior MDM Narrative Medical decision making narrative: Patient is hemodynamically stable hemoglobin and hematocrit have remained on changed since January 03. He is Hemoccult negative. No concern for acute GI bleeding at this time. He does have hematuria however urine in the urinal in the room appears yellow and clear but it is positive for blood. No sign of infection. Patient overall feels okay. Daughter states that he is sleeping a lot lately which is abnormal for him. Discussed with both patient and daughter signs of when to return to the ED. Discharge Plan Departure Patient Disposition: Home Clinical Impression: Hematuria, Acute dehydration Instructions: DI for Hematuria Activity Restrictions/Additional Instructions: *You have been diagnosed with hematuria *What to do: At this time there is no evidence of rectal bleeding. You do have some blood in her urine but no sign of infection. *Continue to take medications as directed *Follow up with your primary care provider in 2-3 days *Return to ER if you should have a blood clots in the urine, confusion, dizzin ess, lightheadedness, falls or any new, worsening or concerning symptoms Prescriptions: No Action duloxetine 20 mg capsule,delayed release(DR/EC) 20 mg PO DAILY Qty: 90 RF: 1 amlodipine 10 mg tablet See Rx Instructions .ROUTE .COMPLEX Qty: 90 RF: 3 pantoprazole 40 mg tablet,delayed release (DR/EC) 40 mg PO BID Qty: 90 RF: 3 trazodone 100 mg tablet 100 mg PO BEDTIME Qty: 180 RF: 3 cholecalciferol (vitamin D3) 50 mcg (2,000 unit) Tablet 50 mcg PO DAILY RF: 0 Adult Probiotic 3 billion cell Capsule 3,000 mmu cells PO DAILY RF: 0 allopurinol 100 mg tablet 100 mg PO DAILY RF: 0 atenolol 50 mg tablet 50 mg PO BID RF: 0 acetaminophen 650 mg Tablet 650 mg PO Q4H PRN (Reason: pain) RF: 0 tamsulosin [Flomax] 0.4 mg Capsule 0.4 mg PO BEDTIME RF: 0 famotidine 20 mg Tablet 20 mg PO BID RF: 0 hydrocodone-acetaminophen 5-325 mg Tablet 1 tab PO Q4HR PRN (Reason: Pain, Moderate (4-6)) Qty: 10 RF: 0 doxycycline hyclate 100 mg capsule 100 mg PO BID Qty: 6 RF: 0 Referrals: Larry Roman MD [Primary Care Provider] -
[2021-01-19 18:25] VITALS: BP 166/72; PULSE 79; O2SAT 94
== END 2021-01-19 18:25 | disposition home or self-care (01) ==
PROVIDERS: Emergency Medicine; Emergency Provider Emergency Medicine; Family Provider Student in an Organized Health Care Education/Training Program; PCP Student in an Organized Health Care Education/Training Program
DX: R31.9 Hematuria, unspecified (principal); E86.0 Dehydration; R53.83 Other fatigue; I10 Essential (primary) hypertension
CPT/HCPCS: 36415; 80053; 81003; 81015; 85025; 85610; 85730; 86850; 86900; 86901; 93005; 99283; 99284

== ENCOUNTER 2021-01-27 13:21 | Inpatient (IN) | payer OTHER, SELFPAY ==
[2021-01-12 09:20] VITALS: BMI 31.9
[2021-01-27] VITALS (29 sets, daily range): BP systolic 99–154; BP diastolic 51–73; PULSE 71–100; RESP 16–42; TEMP 36.3–38.8; O2SAT 84–100; BMI 32.5
--- NOTE | 2021-01-27 13:24 | DI.RAD.S_ITS ---
PROCEDURE: XR CHEST 1V INDICATIONS: short of breath TECHNIQUE: One view of the chest was acquired. COMPARISON: [facility], CR, XR CHEST 1V, 01/01/2021, 8:04. [facility], CR, XR CHEST 1V, 12/06/2020, 10:27. FINDINGS: Surgical changes and devices: None. Lungs and pleura: Lungs are mildly edematous. No pleural effusions or pneumothorax. Mediastinum: Mediastinal contours appear normal. Heart size is mildly enlarged and the patient is rotated and somewhat tilted rightward. Bones and chest wall: No suspicious bony lesions. Overlying soft tissues appear unremarkable. IMPRESSION: Mild cardiomegaly, mild generalized pulmonary edema pattern. No focal pneumonia seen. The patient is rotated and tilted rightward which accentuates the cardiac silhouette. Dictated by: Raul Honeycutt M.D. on 01/27/2021 at 15:06 Approved by: Raul Honeycutt M.D. on 01/27/2021 at 15:06
[2021-01-27 13:53] LABS: Bacteria Urine None Seen; WBC Urine None Seen (0-5/HPF)
[2021-01-27 13:57] LABS: Appearance Urine UA CLEAR; Bilirubin Urine UA NEGATIVE (NEGATIVE); Color Urine UA YELLOW; Glucose Urine UA NEGATIVE (Negative); Ketones Urine UA NEGATIVE (NEGATIVE); Leukocyte Esterase Urine UA NEGATIVE (NEGATIVE); Nitrite Urine UA NEGATIVE (Negative); Occult Blood Urine UA 3+ (Negative); Protein Urine UA 2+ (Negative); Urobilinogen Urine UA 0.2 E.U./dL (0.2); pH Urine UA 5.5 (4.5-8.0)
--- NOTE | 2021-01-27 13:58 | ED.SEPSIS ---
HPI - Sepsis General Chief Complaint: Weakness Mode of arrival: EMS Source: family and EMS Limitations: altered mental status Evaluation Sepsis Screen: Possible Severe Sepsis Risk Sepsis Infection Criteria Present: Suspected New Infection Narrative: Patient is a 85-year-old male who presents with generalized weakness. He has actually seen and evaluated here 1 week ago for hematuria, was not indicated for cold for a presenting today with fever and generalized weakness. Daughter states that it perhaps started yesterday where she was having increased urination and today seems generally weak. He is febrile. EMS found his O2 to be in the 80s and was placed on a non-rebreather. He certainly has a poor waveform. I had seen him in the past and this is decline in mental status. Prior history of GI bleeding. Review of Systems Review of Systems ROS Unobtainable: All systems reviewed & are unremarkable except as noted in HPI and below Constitutional Constitutional: Reports fatigue and Reports fever(s) Cardiovascular Cardiovascular: Denies chest pain Respiratory Respiratory: Reports as per HPI Gastrointestinal Gastrointestinal: Denies abdominal pain, Denies melena, Denies nausea and Denies vomiting Genitourinary Genitourinary: Reports other (hematuria) Musculoskeletal Musculoskeletal: Denies deformity Integumentary/Breasts Skin/Breast: Denies rash and Denies wounds Neurologic Neurologic: Reports confusion Psychiatric Psychiatric: Reports confusion Endocrine Endocrine: Reports fatigue 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) Hemorrhoids Hyperlipemia Hypertension Hyperthyroidism Insomnia Obstructive sleep apnea Osteoarthritis Papules Primary insomnia (09/16/16) Pure hypercholesterolemia (02/12/16) Squamous cell carcinoma Surgical History History of ectropion repair (10/2017) Hx of surgical procedure Family History Family/Other Unknown family medical history Social History household members: family Smoking Status: Former smoker Smoking Status: Former smoker tobacco type: cigarettes alcohol intake frequency: 0-2 drinks per day Alcohol type: hard liquor Substance Use Type: does not use Exam Initial Vital Signs Initial Vital Signs: Vital Signs Temperature 101.9 F H 01/27/21 13:39 Pulse Rate 100 H 01/27/21 13:39 Respiratory Rate 26 H 01/27/21 13:39 Blood Pressure 146/73 H 01/27/21 13:39 Pulse Oximetry 99 01/27/21 13:39 GENERAL: 85-year-old male appears weak and cyanotic HEENT: Head atraumatic,EOMI, pupils reactive, face symmetric, moist mucous membranes CARDIOVASCULAR: Regular rate and rhythm without murmurs, rubs or gallops. RESPIRATORY: Mild tachypnea but no wheezes rales or rhonchi ABDOMEN: Soft, nontender. Normoactive bowel sounds all 4 quadrants. No guarding or rebound. EXTREMITIES: Normal range of motion, no clubbing or edema. Neurovascularly intact NEUROLOGICAL: Alert and oriented x2. Cash Control Specialist strength equal bilaterally SKIN: Warm, dry, no laceration, no petechiae, no rashes or lesions. Scores GCS [place] coma scale eye opening: Spontaneous [place] coma scale verbal response: Confused [place] coma scale motor response: Obey commands [place] coma scale total score: 14 qSOFA Altered Mental Status (GCS <15): Yes Respiratory rate greater than/equal to 22: Yes Systolic blood pressure less than or equal to 100: No qSOFA Total: 2 0-1 Not High Risk 1-3 High risk Course Orders Ordered: ED Orders 01/27/21 13:24 XR chest 1V Stat EKG-12 Lead Stat 01/27/21 13:45 Urinalysis and Microscopic Stat 01/27/21 13:49 ABG [Arterial Blood Gas] Stat 01/27/21 13:55 COVID19 - ADMIT (PARENT EDUCATOR swab/PCR) Stat 01/27/21 14:30 Blood Culture Stat Complete Blood Count AUTO DIFF Stat Comprehensive Metabolic Panel Stat Lactate (Lactic Acid) Stat NT-proBNP (BNP-Adult 18+) Stat Procalcitonin Stat Troponin & CK Cardiac Panel Stat 01/27/21 15:13 CT angio chest PE protocol Stat 01/27/21 15:28 Respiratory Panel (Film Array) Stat Acetaminophen (Acetaminophen 325 Mg Tablet) 650 mg PO Q6HR PRN PRN Reason: Fever Albuterol/Ipratropium (Albuterol/Ipratropium 3 Ml Ampul) 3 ml INH RTQ4HR PRN PRN Reason: Shortness Of Breath Enoxaparin Sodium (Enoxaparin 40 Mg/0.4 Ml Syringe) 40 mg SUBCUT DAILY BHAVIN Sodium Chloride (Normal Saline 0.9%) 1,000 mls @ 200 mls/hr IV CONT BHAVIN Last Infusion: 01/27/21 19:04 Dose: 0 mls/hr Documented by: Admin: 01/27/21 14:20 Dose: 200 mls/hr Documented by: DAYLIN Piperacillin Sod/Tazobactam (Sod 3.375 gm/ Sodium Chloride) 100 mls @ 25 mls/hr IV Q8H BHAVIN Azithromycin 500 mg/ Dextrose 250 mls @ 250 mls/hr IV Q24H BHAVIN Sodium Chloride (Normal Saline 0.9%) 2,259 mls @ 753 mls/hr 30 ml/kg infuse over 3 hr (2259 ml) IV NOW ONE Stop: 01/27/21 21:07 Vancomycin HCl/Dextrose (Vancomycin) 2,000 mg in 400 mls @ 200 mls/hr IV Q24H BHAVIN Naloxone HCl (Naloxone 0.4 Mg/Ml Vial) 0.2 mg IV Q2MIN PRN PRN Reason: Opiate Reversal Vancomycin HCl (Vancomycin Per Pharmacy) 1 request MISC NOW ONE Stop: 01/27/21 18:07 Discontinued Medications Acetaminophen (Acetaminophen 650 Mg Supp) 650 mg RI NOW ONE Stop: 01/27/21 13:46 Last Admin: 01/27/21 14:21 Dose: 650 mg Documented by: DAYLIN Dextrose (Dextrose 50 % In Water 25 Gm/50 Ml Syringe) 25 gm IV NOW ONE Stop: 01/27/21 14:07 Last Admin: 01/27/21 14:08 Dose: 25 gm Documented by: DAYLIN Piperacillin Sod/Tazobactam (Sod 4.5 gm/ Sodium Chloride) 100 mls @ 200 mls/hr IV NOW ONE Stop: 01/27/21 13:46 Last Infusion: 01/27/21 15:45 Dose: 0 mls/hr Documented by: Admin: 01/27/21 14:21 Dose: 200 mls/hr Documented by: DAYLIN Vital Signs Vital signs: Vital Signs - 8 hr 01/27/21 13:39 01/27/21 13:46 01/27/21 14:21 Temperature 101.9 F H 101.2 F H 101.2 F H Pulse Rate 100 H 99 H Respiratory Rate 26 H 16 Blood Pressure 146/73 H 154/70 H Pulse Oximetry 99 01/27/21 14:30 01/27/21 14:35 01/27/21 14:38 Temperature Pulse Rate 93 H 94 H 94 H Respiratory Rate 22 42 H 35 H Blood Pressure 128/67 Pulse Oximetry 97 100 98 01/27/21 15:00 01/27/21 15:30 01/27/21 16:00 Temperature Pulse Rate 93 H 85 91 H Respiratory Rate 37 H 27 H 34 H Blood Pressure 119/57 L 107/54 L 113/54 L Pulse Oximetry 91 95 96 01/27/21 16:32 01/27/21 16:40 01/27/21 16:45 Temperature Pulse Rate 85 84 86 Respiratory Rate 30 H 39 H Blood Pressure 103/54 L 110/57 L Pulse Oximetry 84 L 95 95 MDM - Sepsis Lab Data Attestation: I reviewed the patient's lab results. Result diagrams: 01/27/21 14:30 01/27/21 14:30 Labs: Lab Results 01/27/21 01/27/21 01/27/21 Range/Units 13:45 13:49 13:55 WBC (4.5-11.0) X10^3/uL RBC (4.5-5.9) X10^6/uL Hgb (13.5-17.5) g/dL Hct (41-53) % MCV (80-100) fL MCH (26-34) PG MCHC (30-36) % RDW (11.6-14.8) % Plt Count (150-400) X10^3/uL Neut % (Auto) (50-75) % Lymph % (Auto) (25-40) % Mason % (Auto) (3-14) % Eos % (Auto) (2-4) % Baso % (Auto) (0-2) % Neut # (Auto) (1267-1785) /uL Lymph # (Auto) (5948-2964) /uL Mason # (Auto) (0-900) /uL Eos # (Auto) (0-450) /uL Baso # (Auto) (0-100) /uL ABG pH 7.45 (7.35-7.45) ABG pCO2 36.5 (35-45) mmHg ABG pO2 46 L* (80-100) mmHg ABG HCO3 25 (22-26) mmol/L ABG Total CO2 26 (21-31) mmol/L ABG O2 Saturation 84 L* (95-100) % ABG Base Excess 1.0 (-2-2) mmol/L FiO2 44 Sodium (137-145) mmol/L Potassium (3.4-5.1) mmol/L Chloride (98-107) mmol/L Carbon Dioxide (22-32) mmol/L BUN (9-20) mg/dL Creatinine (0.66-1.25) mg/dL Estimated GFR (>60) mL/min BUN/Creatinine Ratio (6-22) Glucose (80-110) mg/dL Lactate (0.7-2.1) mmol/L Calcium (8.4-10.2) mg/dL Total Bilirubin (0.2-1.3) mg/dL AST (17-59) IU/L ALT (<50) IU/L Alkaline Phosphatase (38-126) U/L Total Creatine Kinase (55-170) U/L CK-MB (CK-2) CK-MB (CK-2) Rel Index Troponin I (0.01-0.034) ng/mL NT-Pro-B Natriuret Pep (<450) pg/mL Total Protein (6.3-8.2) g/dL Albumin (3.5-5.0) g/dL Globulin (1.7-4.1) g/dL Albumin/Globulin Ratio (1.0-2.8) Procalcitonin (<0.5) ng/mL Urine Color Yellow Urine Appearance Clear Urine pH 5.5 (4.5-8.0) Ur Specific [place] 1.020 (1.000-1.035) Urine Protein 2+ H (Negative) Urine Glucose (UA) Negative (Negative) g/dL Urine Ketones Negative (NEGATIVE) Urine Occult Blood 3+ H (Negative) Urine Nitrate Negative (Negative) Urine Bilirubin Negative (NEGATIVE) Urine Urobilinogen 0.2 (0.2) E.U./dL Ur Leukocyte Esterase Negative (NEGATIVE) Urine RBC 5-10/hpf H (0-5/HPF) Urine WBC None seen (0-5/HPF) Urine Bacteria None seen (None) Ur Culture Indicated? Cult not indicated SARS-CoV-2 (PCR) Negative (Negative) 01/27/21 01/27/21 01/27/21 Range/Units 14:30 14:30 14:30 WBC 11.6 H (4.5-11.0) X10^3/uL RBC 4.10 L (4.5-5.9) X10^6/uL Hgb 10.6 L (13.5-17.5) g/dL Hct 32.8 L (41-53) % MCV 80.1 (80-100) fL MCH 25.8 L (26-34) PG MCHC 32.2 (30-36) % RDW 19.3 H (11.6-14.8) % Plt Count 265 (150-400) X10^3/uL Neut % (Auto) 89.3 H (50-75) % Lymph % (Auto) 3.0 L (25-40) % Mason % (Auto) 7.0 (3-14) % Eos % (Auto) 0.4 L (2-4) % Baso % (Auto) 0.3 (0-2) % Neut # (Auto) 62278 H (2032-4996) /uL Lymph # (Auto) 400 L (1358-7186) /uL Mason # (Auto) 800 (0-900) /uL Eos # (Auto) 0 (0-450) /uL Baso # (Auto) 0 (0-100) /uL ABG pH (7.35-7.45) ABG pCO2 (35-45) mmHg ABG pO2 (80-100) mmHg ABG HCO3 (22-26) mmol/L ABG Total CO2 (21-31) mmol/L ABG O2 Saturation (95-100) % ABG Base Excess (-2-2) mmol/L FiO2 Sodium 134 L (137-145) mmol/L Potassium 4.4 (3.4-5.1) mmol/L Chloride 98 (98-107) mmol/L Carbon Dioxide 29 (22-32) mmol/L BUN 27 H (9-20) mg/dL Creatinine 0.95 (0.66-1.25) mg/dL Estimated GFR > 60.0 (>60) mL/min BUN/Creatinine Ratio 28.4 H (6-22) Glucose 162 H (80-110) mg/dL Lactate 1.9 (0.7-2.1) mmol/L Calcium 9.3 (8.4-10.2) mg/dL Total Bilirubin 0.4 (0.2-1.3) mg/dL AST 25 (17-59) IU/L ALT 19 (<50) IU/L Alkaline Phosphatase 132 H (38-126) U/L Total Creatine Kinase < 20 L (55-170) U/L CK-MB (CK-2) TNP CK-MB (CK-2) Rel Index TNP Troponin I < 0.012 (0.01-0.034) ng/mL NT-Pro-B Natriuret Pep 885 H (<450) pg/mL Total Protein 7.8 (6.3-8.2) g/dL Albumin 3.4 L (3.5-5.0) g/dL Globulin 4.4 H (1.7-4.1) g/dL Albumin/Globulin Ratio 0.8 L (1.0-2.8) Procalcitonin 0.15 (<0.5) ng/mL Urine Color Urine Appearance Urine pH (4.5-8.0) Ur Specific [place] (1.000-1.035) Urine Protein (Negative) Urine Glucose (UA) (Negative) g/dL Urine Ketones (NEGATIVE) Urine Occult Blood (Negative) Urine Nitrate (Negative) Urine Bilirubin (NEGATIVE) Urine Urobilinogen (0.2) E.U./dL Ur Leukocyte Esterase (NEGATIVE) Urine RBC (0-5/HPF) Urine WBC (0-5/HPF) Urine Bacteria (None) Ur Culture Indicated? SARS-CoV-2 (PCR) (Negative) Point of Care Testing Glucose POC [address] scan - chest: Radiologist's Impression: PROCEDURE: CT ANGIO CHEST PE PROTOCOL INDICATIONS: hypoxic TECHNIQUE: After the administration of intravenous contrast, 2 mm thick sections acquired from the pulmonary apices to the posterior costophrenic angles. 3-dimensional maximum intensity projection (MIP) coronal and sagittal reformats were then acquired through the thorax. For radiation dose reduction, the following was used: automated exposure control, adjustment of mA and/or kV according to patient size. COMPARISON: None. FINDINGS: Image quality: Excellent. Pulmonary arteries: Pulmonary arteries are normal in size, seen welland demonstrate no intraluminal filling defects to suggest central pulmonary embolism. Lungs and pleura: Lungs are abnormal, with a generalized alveolar edema pattern that is somewhat more patchy at the upper lungs, a nonspecific appearance. No pleural effusions or pneumothorax. Central and peripheral airways are patent. Mediastinum: Heart size is normal, without pericardial effusion. No mediastinal or hilar adenopathy. Thoracic aorta is normal in caliber and enhancement. Esophagus is normal in caliber, without hiatal hernia. Bones and chest wall: No suspicious bony lesions. Ribs and thoracic spine appear intact throughout. Thyroid gland appears normal where No axillary or supraclavicular adenopathy. Abdomen: Visualized upper abdominal solid organs appear normal in the early arterial phase of enhancement. IMPRESSION: Alveolar edema pattern, somewhat more patchy at the upper lungs than at the mid and lower lungs. The heart is not enlarged. The appearance raises concern for atypical/viral pneumonia. Heterogeneous cardiogenic pulmonary edema also should be considered as cause of this appearance. No pulmonary embolus is present. Dictated by: Raul Honeycutt M.D. on 01/27/2021 at 15:44 Chest x-ray: Radiologist's Impression: PROCEDURE: XR CHEST 1V INDICATIONS: short of breath TECHNIQUE: One view of the chest was acquired. COMPARISON: [facility], , XR CHEST 1V, 01/01/2021, 8:04. [facility], , XR CHEST 1V, 12/06/2020, 10:27. FINDINGS: Surgical changes and devices: None. Lungs and pleura: Lungs are mildly edematous. No pleural effusions or pneumothorax. Mediastinum: Mediastinal contours appear normal. Heart size is mildly enlarged and the patient is rotated and somewhat tilted rightward. Bones and chest wall: No suspicious bony lesions. Overlying soft tissues appear unremarkable. IMPRESSION: Mild cardiomegaly, mild generalized pulmonary edema pattern. No focal pneumonia seen. The patient is rotated and tilted rightward which accentuates the cardiac silhouette. Dictated by: Raul Honeycutt M.D. on 01/27/2021 at 15:06 Approved by: Raul Honeycutt M.D. on 01/27/2021 at 15:06 [facility] Narrative Medical decision making narrative: Patient is initially found to be hypoglycemic with a glucose of 66 he is given dextrose he is also placed on high-flow nasal cannula for a PaO2 of 46. Both of these things seem to improve patient's mental status read quickly. However he remains febrile, source of infection it is is still to be determined. He has mild leukocytosis of 11 he has normal lactic acid of 1.4, procalcitonin is 0.15 and COVID negative. Urinalysis has hematuria but no infection. CT angio is done to rule out PE for hypoxia and atypical pneumonia it is found on the CT. He is given Zosyn. He has no abdominal pain no nausea or vomiting. Patient is not hypotensive slightly tachycardic with heart rate of 100 is which does improve with fever control. At this time patient does not meet severe sepsis criteria and does not need fluid bolus. Also bolus not given due to patient's initial hypoxia. Patient has prior history of GI bleed but no active bleeding now hemoglobin and hematocrit are stable. Dr. Piedra, in ED to see and evaluate patient agrees with admission. Discharge Plan Departure Patient Disposition: Admitted As Inpatient Clinical Impression: Hypoglycemia, Hypoxia, Pneumonia Sepsis Qualifiers: Sepsis type: sepsis due to unspecified organism Sepsis acute organ dysfunction status: with acute organ dysfunction Severe sepsis acute organ dysfunction type: acute respiratory failure Acute respiratory failure type: with hypoxia Severe sepsis shock status: without septic shock Qualified Code(s): A41.9 - Sepsis, unspecified organism Admit Date/Time: 01/27/21 16:57 Admit Provider: Severino Piedra
[2021-01-27 14:02] LABS: PCO2 ABG 36.5 mmHg (35-45); pH ABG 7.45 (7.35-7.45)
[2021-01-27 14:03] LABS: Fractionated Inspired Oxygen 44; HCO3 ABG 25 mmol/L (22-26); Oxygen Saturation ABG 84 % (95-100); PO2 ABG 46 mmHg (80-100); TCO2 ABG 26 mmol/L (21-31)
[2021-01-27 14:08] LABS: Culture Indicated Urine Cult Not Indicated; RBC Urine 5-10/HPF (0-5/HPF)
[2021-01-27] MEDS: DEXTROSE 50 % IN WATER 25 GM/50 ML SYRINGE IV (14:08)
[2021-01-27] MEDS: SODIUM CHLORIDE 0.9% 1,000 ML 200 ML IV (14:20)
[2021-01-27] MEDS: PIPERACILLIN/TAZO 4.5 GM in SODIUM CHLORIDE 0.9% 100 ML 200 ML IV (14:21)
[2021-01-27] MEDS: ACETAMINOPHEN 650 MG SUPP PR (14:21)
--- NOTE | 2021-01-27 14:51 | RT ---
[facility] INITIATED IN ED PER VERBAL ORDER BY DR. KANG, POST ABG RESULTS. PT APPEARS TO BE TOLERATING IT WELL.
[2021-01-27 14:54] LABS: Add Manual Diff / Slide Review NO; Basophils Absolute Auto 0 /uL (0-100); Basophils Percent Auto 0.3 % (0-2); Eosinophils Absolute Auto 0 /uL (0-450); Eosinophils Percent Auto 0.4 % (2-4); Hematocrit 32.8 % (41-53); Hemoglobin 10.6 g/dL (13.5-17.5); Lymphocytes Absolute Auto 400 /uL (1100-4500); Mean Corpuscular HGB Conc 32.2 % (30-36); Mean Corpuscular Hemoglobin 25.8 PG (26-34); Mean Corpuscular Volume 80.1 fL (80-100); Monocytes Absolute Auto 800 /uL (0-900); Neutrophils Absolute Auto 10300 /uL (1500-7000); Neutrophils Percent Auto 89.3 % (50-75); Platelet Count 265 X10^3/uL (150-400); Red Cell Distribution Width 19.3 % (11.6-14.8); White Blood Cell Count 11.6 X10^3/uL (4.5-11.0)
[2021-01-27 15:06] LABS: COVID19 - ADMIT (NP swab/PCR) Negative (Negative)
[2021-01-27 15:09] LABS: Alanine Aminotransferase 19 IU/L (<50); Albumin 3.4 g/dL (3.5-5.0); Albumin Globulin Ratio 0.8 (1.0-2.8); Alkaline Phosphatase 132 U/L (38-126); Aspartate Aminotransferase 25 IU/L (17-59); BUN Creatinine Ratio 28.4 (6-22); Bilirubin Total 0.4 mg/dL (0.2-1.3); Blood Urea Nitrogen 27 mg/dL (9-20); Calcium 9.3 mg/dL (8.4-10.2); Carbon Dioxide 29 mmol/L (22-32); Chloride 98 mmol/L (98-107); Creatine Kinase < 20 U/L (55-170); Estimated Glomerular Filt Rate > 60.0 mL/min (>60); Globulin 4.4 g/dL (1.7-4.1); Glucose 162 mg/dL (80-110); HEMOLYSIS < 15 (0-50); Lactate (Lactic Acid) 1.9 mmol/L (0.7-2.1); Potassium 4.4 mmol/L (3.4-5.1); Sodium 134 mmol/L (137-145); Total Protein 7.8 g/dL (6.3-8.2)
--- NOTE | 2021-01-27 15:13 | DI.CT.S_ITS ---
PROCEDURE: CT ANGIO CHEST PE PROTOCOL INDICATIONS: hypoxic TECHNIQUE: After the administration of intravenous contrast, 2 mm thick sections acquired from the pulmonary apices to the posterior costophrenic angles. 3-dimensional maximum intensity projection (MIP) coronal and sagittal reformats were then acquired through the thorax. For radiation dose reduction, the following was used: automated exposure control, adjustment of mA and/or kV according to patient size. COMPARISON: None. FINDINGS: Image quality: Excellent. Pulmonary arteries: Pulmonary arteries are normal in size, seen welland demonstrate no intraluminal filling defects to suggest central pulmonary embolism. Lungs and pleura: Lungs are abnormal, with a generalized alveolar edema pattern that is somewhat more patchy at the upper lungs, a nonspecific appearance. No pleural effusions or pneumothorax. Central and peripheral airways are patent. Mediastinum: Heart size is normal, without pericardial effusion. No mediastinal or hilar adenopathy. Thoracic aorta is normal in caliber and enhancement. Esophagus is normal in caliber, without hiatal hernia. Bones and chest wall: No suspicious bony lesions. Ribs and thoracic spine appear intact throughout. Thyroid gland appears normal where No axillary or supraclavicular adenopathy. Abdomen: Visualized upper abdominal solid organs appear normal in the early arterial phase of enhancement. IMPRESSION: Alveolar edema pattern, somewhat more patchy at the upper lungs than at the mid and lower lungs. The heart is not enlarged. The appearance raises concern for atypical/viral pneumonia. Heterogeneous cardiogenic pulmonary edema also should be considered as cause of this appearance. No pulmonary embolus is present. Dictated by: Raul Honeycutt M.D. on 01/27/2021 at 15:44 Approved by: Raul Honeycutt M.D. on 01/27/2021 at 15:50
[2021-01-27 15:22] LABS: NT-proBNP (BNP-Adult 18+) 885 pg/mL (<450); Troponin I < 0.012 ng/mL (0.01-0.034)
--- NOTE | 2021-01-27 15:22 | PC.NURSE ---
patient arrived in ed via ems, jonny martin, arrousable by voice. second IV attempted with no success by two nurses. straight awa, RT kayden an abg, ekg done. Patient placed on heated highflow after failing oxygen therapy in [place] at 6L. Jonny now awake and alert.
[2021-01-27 15:26] LABS: Procalcitonin 0.15 ng/mL (<0.5)
--- NOTE | 2021-01-27 19:24 | PC.NURSE ---
Admit-Pt arrived from Er, 1849, used sling for transfer to bed. HHFNC in use 50L @ 38% Fio2. Pt is alert and answering questions appropriately, [facility]. Med rec done with photo from daughter Nessa's phone. Report to Blanca CHAPPELL.
[2021-01-27] MEDS: AZITHROMYCIN 500 MG in DEXTROSE 5% IN WATER 250 ML IV (19:34)
--- NOTE | 2021-01-27 20:43 | P.HP_ITS ---
History of Present Illness History of Present Illness Date Patient Seen: 01/27/21 Time Patient Seen: 16:44 Chief complaint: weakness, near syncopal Narrative: Mr. George is an 85M PMH gout, HTN, former smoker with long smoking history but recently quit, history of CVA, history of GI bleed due to ulcers from NSAIDs hypothyroid, osteoarthritis who comes in with weakness. He apparently had been seen a week ago here for asymptomatic hematuria, was not found to have a urinary tract infection. Per the daugther about 3 days ago he developed urinary urgency, lost his appetite. He had a cough with some phlegm production. Starting yesterday he began to be lethargic. He denies shortness of breath. No chest pain. No nausea, vomiting, diarrhea. No subjective chills or fevers. In the ER, workup was done, he was noted to be hypoxemic, he was found to be febrile at >101. Labs showed WBC at 11.6, 89.3% PMNs. Initial abg off oxygen with PaO2 of 46. Creatinine 0.95. Lactate 1.9. BNP 885. Procal 0.15. Urinalysis with no leuk esterase, no WBC, no bacteria. Chest xray with no acute process. CTA chest with no PE, but patchy alveolar patter, concering for atypical/viral pneumonia. COVID negative. He was ordered for vancomycin, zosyn, azithromycin. He was admitted for further treatment. 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) Hemorrhoids Hyperlipemia Hypertension Hyperthyroidism Insomnia Obstructive sleep apnea Osteoarthritis Papules Primary insomnia (09/16/16) Pure hypercholesterolemia (02/12/16) Squamous cell carcinoma Surgical History History of ectropion repair (10/2017) Hx of surgical procedure Family & Social History Family History Family/Other Unknown family medical history Social History: household members family Safety & Behavioral: Feels Safe in Current Yes Environment Been Physically Hurt or No Threatened By a Person Suicidal Ideation Description None Tobacco & Substance use: Smoking Status Former smoker alcohol intake frequency 0-2 drinks per day Substance Use Type does not use Meds Home Medications and Allergies Home Medications Medication Instructions Recorded Confirmed Type cholecalciferol (vitamin D3) 50 mcg PO DAILY 11/25/20 01/27/21 History Adult Probiotic 3,000 mmu cells PO DAILY 01/01/21 01/27/21 History acetaminophen 650 mg PO Q4H PRN 01/01/21 01/27/21 History allopurinol 100 mg PO DAILY 01/01/21 01/27/21 History atenolol 50 mg PO BID 01/01/21 01/27/21 History famotidine 20 mg PO BID 01/01/21 01/27/21 History tamsulosin [Flomax] 0.4 mg PO BEDTIME 01/01/21 01/27/21 History hydrocodone-acetaminophen 1 tab PO Q4HR PRN #10 tab 01/03/21 01/27/21 Rx amlodipine 10 mg tablet See Rx Instructions .ROUTE 01/12/21 01/27/21 Rx .COMPLEX #90 tablet duloxetine 20 mg capsule,delayed 20 mg PO DAILY #90 cap 01/12/21 01/27/21 Rx release pantoprazole 40 mg tablet,delayed 40 mg PO BID #90 tab 01/12/21 01/27/21 Rx release trazodone 100 mg tablet 100 mg PO BEDTIME #180 tab 01/12/21 01/27/21 Rx Allergies Allergy/AdvReac Type Severity Reaction Status Date / Time No Known Drug Allergies Allergy Verified 01/19/21 12:25 Review of Systems Review of Systems Narrative: 14 systems reviewed and negative aside from HPI Exam Vital Signs (past 8 hours): - 01/27/21 13:39 01/27/21 13:46 01/27/21 14:21 Temperature 101.9 F H 101.2 F H 101.2 F H Pulse Rate 100 H 99 H Respiratory Rate 26 H 16 Blood Pressure 146/73 H 154/70 H Pulse Oximetry 99 01/27/21 14:30 01/27/21 14:35 01/27/21 14:38 Temperature Pulse Rate 93 H 94 H 94 H Respiratory Rate 22 42 H 35 H Blood Pressure 128/67 Pulse Oximetry 97 100 98 01/27/21 15:00 01/27/21 15:30 01/27/21 16:00 Temperature Pulse Rate 93 H 85 91 H Respiratory Rate 37 H 27 H 34 H Blood Pressure 119/57 L 107/54 L 113/54 L Pulse Oximetry 91 95 96 01/27/21 16:32 01/27/21 16:40 01/27/21 16:45 Temperature Pulse Rate 85 84 86 Respiratory Rate 30 H 39 H Blood Pressure 103/54 L 110/57 L Pulse Oximetry 84 L 95 95 01/27/21 17:00 01/27/21 17:11 01/27/21 17:15 Temperature Pulse Rate 80 90 83 Respiratory Rate 29 H 22 18 Blood Pressure 110/53 L 113/56 L Pulse Oximetry 94 92 93 01/27/21 17:30 01/27/21 17:45 01/27/21 18:00 Temperature Pulse Rate 79 80 79 Respiratory Rate 24 25 H 23 Blood Pressure 113/55 L 112/59 L Pulse Oximetry 93 97 01/27/21 18:01 01/27/21 18:15 01/27/21 18:30 Temperature Pulse Rate 82 76 76 Respiratory Rate 31 H 31 H Blood Pressure 99/51 L 103/51 L 121/58 L Pulse Oximetry 94 01/27/21 18:46 01/27/21 18:57 01/27/21 19:05 Temperature 98.5 F Pulse Rate 79 79 79 Respiratory Rate 19 19 22 Blood Pressure 106/53 L 106/53 L Pulse Oximetry 97 96 96 01/27/21 20:30 Temperature 98.7 F Pulse Rate 74 Respiratory Rate 23 Blood Pressure 113/57 L Pulse Oximetry 95 Fraction of Inspired Oxygen 38 Oxygen Delivery Method Room Air Oxygen Flow Rate 50 Narrative Exam Narrative: GEN: chronically ill appearing, mild respiratory distress HEENT: moist mucous membranes, PERRL NECK: trachea midline, no JVD CV: regular rate and rhythm, no murmurs PULM: coarse breath sounds bilaterally ABD: soft, nontender, nondistended, no organomegaly, normal bowel sounds EXT: warm and well perfused with no edema NEURO: sleepy, arousable, moving all extremities with no gross deficits PSYCH: pleasant, cooperative Objective Labs Result Diagrams: 01/27/21 14:30 01/27/21 14:30 Labs: Laboratory Results - last 24 hr 01/27/21 01/27/21 01/27/21 13:45 13:49 13:55 WBC RBC Hgb Hct MCV MCH MCHC RDW Plt Count Neut % (Auto) Lymph % (Auto) [place] % (Auto) Eos % (Auto) Baso % (Auto) Neut # (Auto) Lymph # (Auto) [place] # (Auto) Eos # (Auto) Baso # (Auto) ABG pH 7.45 ABG pCO2 36.5 ABG pO2 46 L* ABG HCO3 25 ABG Total CO2 26 ABG O2 Saturation 84 L* ABG Base Excess 1.0 FiO2 44 Sodium Potassium Chloride Carbon Dioxide BUN Creatinine Estimated GFR BUN/Creatinine Ratio Glucose Lactate Calcium Total Bilirubin AST ALT Alkaline Phosphatase Total Creatine Kinase CK-MB (CK-2) CK-MB (CK-2) Rel Index Troponin I NT-Pro-B Natriuret Pep Total Protein Albumin Globulin Albumin/Globulin Ratio Procalcitonin Urine Color Yellow Urine Appearance Clear Urine pH 5.5 Ur Specific [place] 1.020 Urine Protein 2+ H Urine Glucose (UA) Negative Urine Ketones Negative Urine Occult Blood 3+ H Urine Nitrate Negative Urine Bilirubin Negative Urine Urobilinogen 0.2 Ur Leukocyte Esterase Negative Urine RBC 5-10/hpf H Urine WBC None seen Urine Bacteria None seen Ur Culture Indicated? Cult not indicated SARS-CoV-2 (PCR) Negative 01/27/21 01/27/21 01/27/21 14:30 14:30 14:30 WBC 11.6 H RBC 4.10 L Hgb 10.6 L Hct 32.8 L MCV 80.1 MCH 25.8 L MCHC 32.2 RDW 19.3 H Plt Count 265 Neut % (Auto) 89.3 H Lymph % (Auto) 3.0 L [place] % (Auto) 7.0 Eos % (Auto) 0.4 L Baso % (Auto) 0.3 Neut # (Auto) 80873 H Lymph # (Auto) 400 L [place] # (Auto) 800 Eos # (Auto) 0 Baso # (Auto) 0 ABG pH ABG pCO2 ABG pO2 ABG HCO3 ABG Total CO2 ABG O2 Saturation ABG Base Excess FiO2 Sodium 134 L Potassium 4.4 Chloride 98 Carbon Dioxide 29 BUN 27 H Creatinine 0.95 Estimated GFR > 60.0 BUN/Creatinine Ratio 28.4 H Glucose 162 H Lactate 1.9 Calcium 9.3 Total Bilirubin 0.4 AST 25 ALT 19 Alkaline Phosphatase 132 H Total Creatine Kinase < 20 L CK-MB (CK-2) TNP CK-MB (CK-2) Rel Index TNP Troponin I < 0.012 NT-Pro-B Natriuret Pep 885 H Total Protein 7.8 Albumin 3.4 L Globulin 4.4 H Albumin/Globulin Ratio 0.8 L Procalcitonin 0.15 Urine Color Urine Appearance Urine pH Ur Specific [place] Urine Protein Urine Glucose (UA) Urine Ketones Urine Occult Blood Urine Nitrate Urine Bilirubin Urine Urobilinogen Ur Leukocyte Esterase Urine RBC Urine WBC Urine Bacteria Ur Culture Indicated? SARS-CoV-2 (PCR) Assessment & Plan Assessment & Plan narrative: Mr. George is an 85M who presents with acute resp iratory failure and sepsis from acute pneumonia. 1. Acute respiratory failure, with sepsis as evidence with leukocytosis, fever, acute respiratory failure with SOFA score of 3 from acute pneumonia unclear if viral or bacterial -in respiratory failure, on high flow nasal cannula -discussed with patient with kelly at bedside and he is DNR/DNI at this time -started broad antibiotics with vanco/zosyn/azithro -ordered 30cc/kg IVF bolus due to sepsis -lactate 1.9 on admission -blood pressure normal on admission -no history of CHF, and no evidence of volume overload to preclude fluid resuscitation -tylenol prn for fever -covid negative -respiratory panel and sputum culture ordered -blood cultures pending -urinalysis negative for infection -RT eval ordered -if worsening respiratory symptoms may need to try gentle diuresis 2. History of CVA - off antiplatelets presumably for GI bleed 3. History of GI bleed - CBC currently stable with mild anemia, hemoglobin in mid 10s 4. BPH -continue tamsulosin 5. HTN -hold atenolol for now 6. Hypoglycemia -monitor blood sugars q4 for now -likely in setting of infection IVF: per sepsis protocol DIET: Regular DVT ppx: Lovenox SC CODE: DNR, discussed with patient and daughter Agnes who is proxy, Scores SOFA PaO2/FIO2: < 300 mmHg Platelets: >= 150 Bilirubin: < 1.2 mg/dL Hypotension: MAP >= 70 mmHg Valery Coma Scale: 13-14 Renal: < 1.2 mg/dL SOFA Score: 3 Quality MIPS - Admit I confirm the patient?s Advance Care Plan is present, Code status is documented, Surrogate decision maker is in patient?s record [If Yes, STOP here]: Yes
[2021-01-27] MEDS: VANCOMYCIN 2,000 MG/400 ML PIGGYBACK 200 MG IV (21:20)
[2021-01-27] MEDS: TAMSULOSIN 0.4 MG CAPSULE PO (21:20)
[2021-01-27] MEDS: ACETAMINOPHEN 325 MG TABLET 650 MG PO (21:20)
[2021-01-27 22:51] LABS: Adenovirus Not Detected (Not Detect); B. parapertussis Not Detected (Not Detecte); Bordetella pertussis Not Detected (Not Detecte); Chlamydophila pneumoniae Not Detected (Not Detect); Coronavirus 229E Not Detected (Not Detect); Coronavirus HKU1 Not Detected (Not Detect); Coronavirus NL 63 Not Detected (Not Detect); Coronavirus OC43 Not Detected (Not Detect); Human Metapneumovirus Not Detected (Not Detect); Human Rhinovirus/Enterovirus Not Detected (Not Detect); Influenza A Not Detected (Not Detect); Influenza B Not Detected (Not Detect); Mycoplasma pneumoniae Not Detected (Not Detect); Parainfluenza Virus 1 Not Detected (Not Detect); Parainfluenza Virus 2 Not Detected (Not Detect); Parainfluenza Virus 3 Not Detected (Not Detect); Parainfluenza Virus 4 Not Detected (Not Detect); Respiratory Syncytial Virus Not Detected (Not Detect); SARS- CoV-2 Not Detected (Not Detecte)
[2021-01-27] MEDS: PIPERACILLIN/TAZO 3.375 GM in SODIUM CHLORIDE 0.9% 100 ML 25 ML IV (23:58)
[2021-01-28] VITALS (18 sets, daily range): BP systolic 114–142; BP diastolic 56–93; PULSE 81–96; RESP 16–39; TEMP 36.4–37.1; O2SAT 92–98
[2021-01-28 05:00] LABS: Lactate (Lactic Acid) 0.9 mmol/L (0.7-2.1)
--- NOTE | 2021-01-28 06:11 | PC.NURSE ---
Shift Note-Patient is oriented to person, place, and situation, uses call light appropriately and can express needs, 1-2 person assist with walker to stand at bedside to use urinal. HHFNC 38%/50L keeping SpO2 >92%, fingers are cool and sometimes dusky or cyanotic. SR, rare ectopi, BP stable, RR 20s, afebrile, see vital trends. CBG Q4h, Tylenol given for pain to right leg.
[2021-01-28 06:18] LABS: Add Manual Diff / Slide Review NO; Basophils Absolute Auto 100 /uL (0-100); Basophils Percent Auto 0.5 % (0-2); Eosinophils Absolute Auto 200 /uL (0-450); Hematocrit 28.9 % (41-53); Hemoglobin 9.4 g/dL (13.5-17.5); Lymphocytes Absolute Auto 600 /uL (1100-4500); Mean Corpuscular HGB Conc 32.4 % (30-36); Mean Corpuscular Hemoglobin 25.9 PG (26-34); Mean Corpuscular Volume 79.8 fL (80-100); Monocytes Absolute Auto 900 /uL (0-900); Monocytes Percent Auto 10.2 % (3-14); Neutrophils Absolute Auto 7500 /uL (1500-7000); Neutrophils Percent Auto 81.3 % (50-75); Platelet Count 247 X10^3/uL (150-400); Red Blood Cell Count 3.63 X10^6/uL (4.5-5.9); Red Cell Distribution Width 19.3 % (11.6-14.8); White Blood Cell Count 9.2 X10^3/uL (4.5-11.0)
[2021-01-28 06:36] LABS: Alanine Aminotransferase 16 IU/L (<50); Albumin 2.8 g/dL (3.5-5.0); Albumin Globulin Ratio 0.7 (1.0-2.8); Alkaline Phosphatase 120 U/L (38-126); Aspartate Aminotransferase 24 IU/L (17-59); BUN Creatinine Ratio 28.9 (6-22); Bilirubin Total 0.2 mg/dL (0.2-1.3); Blood Urea Nitrogen 26 mg/dL (9-20); Calcium 8.9 mg/dL (8.4-10.2); Carbon Dioxide 30 mmol/L (22-32); Chloride 101 mmol/L (98-107); Estimated Glomerular Filt Rate > 60.0 mL/min (>60); Globulin 3.8 g/dL (1.7-4.1); Glucose 116 mg/dL (80-110); HEMOLYSIS < 15 (0-50); Magnesium 1.8 mg/dL (1.6-2.3); Potassium 4.2 mmol/L (3.4-5.1); Sodium 136 mmol/L (137-145); Total Protein 6.6 g/dL (6.3-8.2)
--- NOTE | 2021-01-28 07:08 | DI.RAD.S_ITS ---
PROCEDURE: XR CHEST 1V INDICATIONS: sob TECHNIQUE: One view of the chest was acquired. COMPARISON: [facility], CR, XR CHEST 1V, 01/27/2021, 13:27. [facility], CR, XR CHEST 1V, 01/01/2021, 8:04. FINDINGS: Surgical changes and devices: None. Lungs and pleura: Lungs are again seen to demonstrate a pulmonary edema pattern. No pleural effusions or pneumothorax. Mediastinum: Mediastinal contours appear normal. Heart size is normal. Bones and chest wall: No suspicious bony lesions. Overlying soft tissues appear unremarkable. IMPRESSION: Pulmonary edema pattern, etiology uncertain, without definite cardiomegaly. No worsening from 1 day ago. Dictated by: Raul Honeycutt M.D. on 01/28/2021 at 7:33 Approved by: Raul Honeycutt M.D. on 01/28/2021 at 7:34
[2021-01-28] MEDS: ENOXAPARIN 40 MG/0.4 ML SYRINGE SUBCUT (08:34)
[2021-01-28] MEDS: HYDROCODONE/ACET 5/325 TABLET 1 TAB PO (08:34)
[2021-01-28] MEDS: DOCUSATE 100 MG CAPSULE PO ×2 (08:34→21:13)
[2021-01-28] MEDS: DULOXETINE 20 MG CAPSULE PO (08:34)
[2021-01-28] MEDS: polyethylene glycoL 3350 17 GM POWD.PACK PO (08:34)
[2021-01-28] MEDS: PIPERACILLIN/TAZO 3.375 GM in SODIUM CHLORIDE 0.9% 100 ML 25 ML IV ×2 (10:12→17:37)
--- NOTE | 2021-01-28 11:15 | PC.NURSE ---
Patient moved out of ICU room and into room 222. Oriented to room and call light. Up in chair with chair alarm in place, call light and urinal within reach. Patient denies shortness of breath, pain or other complaint at this time. Assume care and continue to monitor.
[2021-01-28] MEDS: AZITHROMYCIN 500 MG in DEXTROSE 5% IN WATER 250 ML IV (15:33)
[2021-01-28] MEDS: atenoloL 50 MG TABLET PO ×2 (16:12→21:13)
[2021-01-28] MEDS: MAGNESIUM SULFATE 2 GM/50 ML PIGGYBACK IV (16:15)
--- NOTE | 2021-01-28 16:29 | PT-IP ANOTE ---
Attempted to meet with pt for PT evaluation but he was too drowsy and disoriented to meaningfully participate. Will follow up morning of 01/29/21.
--- NOTE | 2021-01-28 16:33 | PC.NURSE ---
Shift Note Pt noted to be having multiple short runs of SVT, self-limiting, starting at 1511. MD notified and orders received to restart pt's atenolol and infuse 2 gm mg rider - both administered. Pt denies any discomfort, denies shortness of breath. Sitting up in chair. Call light within reach.
--- NOTE | 2021-01-28 16:44 | P.PN_ITS ---
Subjective Subjective Date Patient Seen: 01/28/21 Time Patient Seen: 07:44 Interval history: Today patient states he does not feel any better. However he is clearly looking much more awake and alert and breathing much less labored. He is joking, not complaining of any pain currently. Not coughing. Exam Vital Signs (past 8 hours): - 01/28/21 10:02 01/28/21 11:58 01/28/21 15:58 Temperature Pulse Rate 86 86 Respiratory Rate 16 18 Blood Pressure Pulse Oximetry 92 94 94 01/28/21 16:18 Temperature 97.5 F L Pulse Rate 86 Respiratory Rate 18 Blood Pressure 138/93 H Pulse Oximetry 97 Fraction of Inspired Oxygen 38 Oxygen Delivery Method Nasal Cannula Oxygen Flow Rate 3 Narrative Exam Narrative: GEN: chronically ill appearing, mild respiratory distress HEENT: moist mucous membranes, PERRL NECK: trachea midline, no JVD CV: regular rate and rhythm, no murmurs PULM: coarse breath sounds bilaterally ABD: soft, nontender, nondistended, no organomegaly, normal bowel sounds EXT: warm and well perfused with no edema NEURO: awake alert and oriented, moving all extremities with no gross deficits PSYCH: pleasant, cooperative Objective Labs Result Diagrams: 01/28/21 04:35 01/28/21 04:35 Labs: Laboratory Results - last 24 hr 01/27/21 01/27/21 01/28/21 21:50 21:50 04:35 WBC RBC Hgb Hct MCV MCH MCHC RDW Plt Count Neut % (Auto) Lymph % (Auto) [place] % (Auto) Eos % (Auto) Baso % (Auto) Neut # (Auto) Lymph # (Auto) [place] # (Auto) Eos # (Auto) Baso # (Auto) Sodium Potassium Chloride Carbon Dioxide BUN Creatinine Estimated GFR BUN/Creatinine Ratio Glucose Lactate 0.9 Calcium Magnesium Total Bilirubin AST ALT Alkaline Phosphatase Total Protein Albumin Globulin Albumin/Globulin Ratio Nasal Screen MRSA (PCR) Negative for mrsa Chlamy pneumoniae PCR Not detected Adenovirus (PCR) Not detected B. pertussis DNA (PCR) Not detected B.parapertussis DNA PCR Not detected Coronavirus OC43 (PCR) Not detected Coronavirus HKU1 (PCR) Not detected Coronavirus 229E (PCR) Not detected SARS-CoV-2 (PCR) Not detected Coronavirus NL63 (PCR) Not detected Human Metapneumovir PCR Not detected Influenza Type A (PCR) Not detected Influenza Type B (PCR) Not detected M. pneumoniae (PCR) Not detected Parainfluenza 1 (PCR) Not detected Parainfluenza 2 (PCR) Not detected Parainfluenza 3 (PCR) Not detected Parainfluenza 4 (PCR) Not detected RSV (PCR) Not detected Entero/Rhino (PCR) Not detected 01/28/21 01/28/21 04:35 04:35 WBC 9.2 RBC 3.63 L Hgb 9.4 L Hct 28.9 L MCV 79.8 L MCH 25.9 L MCHC 32.4 RDW 19.3 H Plt Count 247 Neut % (Auto) 81.3 H Lymph % (Auto) 6.0 L [place] % (Auto) 10.2 Eos % (Auto) 2.0 Baso % (Auto) 0.5 Neut # (Auto) 7500 H Lymph # (Auto) 600 L [place] # (Auto) 900 Eos # (Auto) 200 Baso # (Auto) 100 Sodium 136 L Potassium 4.2 Chloride 101 Carbon Dioxide 30 BUN 26 H Creatinine 0.90 Estimated GFR > 60.0 BUN/Creatinine Ratio 28.9 H Glucose 116 H Lactate Calcium 8.9 Magnesium 1.8 Total Bilirubin 0.2 AST 24 ALT 16 Alkaline Phosphatase 120 Total Protein 6.6 Albumin 2.8 L Globulin 3.8 Albumin/Globulin Ratio 0.7 L Nasal Screen MRSA (PCR) Chlamy pneumoniae PCR Adenovirus (PCR) B. pertussis DNA (PCR) B.parapertussis DNA PCR Coronavirus OC43 (PCR) Coronavirus HKU1 (PCR) Coronavirus 229E (PCR) SARS-CoV-2 (PCR) Coronavirus NL63 (PCR) Human Metapneumovir PCR Influenza Type A (PCR) Influenza Type B (PCR) M. pneumoniae (PCR) Parainfluenza 1 (PCR) Parainfluenza 2 (PCR) Parainfluenza 3 (PCR) Parainfluenza 4 (PCR) RSV (PCR) Entero/Rhino (PCR) [facility] Medical History Acquired hypothyroidism (09/16/16) Actinic keratosis Basal cell carcinoma 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) Bilateral edema of lower extremity (11/05/15) Bilateral knee pain BPH (benign prostatic hyperplasia) Colon polyps Depression (06/29/15) Depression Erectile dysfunction (02/12/16) Erectile dysfunction Essential hypertension (06/29/15) 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 George is an 85M who presents with acute respiratory failure and sepsis from acute pneumonia. 1. Acute respiratory failure, with sepsis as evidence with leukocytosis, fever, acute respiratory failure with SOFA score of 3 from acute pneumonia unclear if viral or bacterial -in respiratory failure, on high flow nasal cannula on admission, now on nasal cannula -discussed with patient with kelly at bedside and he is DNR/DNI at this time -started broad antibiotics with vanco/zosyn/azithro -ordered 30cc/kg IVF bolus due to sepsis -lactate 1.9 on admission -blood pressure normal on admission -no history of CHF, and no evidence of volume overload to preclude fluid resuscitation -tylenol prn for fever -covid negative -respiratory panel negative -sputum cultured ordered -blood cultures pending -urinalysis negative for infection -RT eval -if worsening respiratory symptoms may need to try gentle diuresis 2. History of CVA - off antiplatelets presumably for GI bleed 3. History of GI bleed - CBC currently stable with mild anemia, hemoglobin in mid 10s 4. BPH -continue tamsulosin 5. HTN -restart atenolol as patient with brief runs of self resolving svt, ordered mag rider for mag of 1.8 6. Hypoglycemia -monitor blood sugars q4 for now -likely in setting of infection IVF: per sepsis protocol DIET: Regular DVT ppx: Lovenox SC CODE: DNR, discussed with patient and daughter Agnes who is proxy,
--- NOTE | 2021-01-28 17:29 | CM.DANOTE ---
DCP ASSESSMENT: Patient is an 85 year-old male admitted to the hospital with acute respiratory failure with sepsis, acute pneumonia. PCP is Larry Roman. Primary payer is Medicare and self-pay. CREDIT CARD ANALYST Student met with patient he was sitting in a chair alert and oriented to self and location. Educated patient on role of social work in discharge planning. He reported he has had home health prior to this hospital admission. Patient gave this advertising copywriter permission to talk with both daughter?s Nessa and Agnes . Information gathered from Nessa lives near [place], Agnes lives in [place] and per Nessa she will return to stay with her father at time of discharge. Met with Nessa this date, she confirmed after fathers last admission to [facility] on 01/01 he went to [facility], then returned home with daughter Agnes and [facility]. Patient and daughter agree to a return to [facility] if it is medically indicated. If not he can return [facility] with [facility] and home health. [facility] is reviewing. Physical therapy has been ordered, evaluation pending. PLAN: Pending additional information from therapies to help with determination SNF vs home with home health. CM Team to continue to follow. LINDA Pendleton MSW Student Discharge Planning/Care Management CM Discharge Assessment Start: 01/28/21 14:48 Freq: Status: Active Protocol: Document 01/28/21 14:48 AL (Rec: 01/28/21 15:03 AL [id number]) Discharge Planning Assessment Assigned Bit Sharpener Operator LINDA Richardson Student Contact Information Agnes, daughter & Nessa, daughter Advance Directives? Yes Advance Directives on File Yes History Provided By Patient,Family Member,Medical Record Has Patient been admitted in last 30 Yes days? Comment 01/01 Patient was admitted for dehydration and transitioned to [facility] at 01/19 ER for hematuria Prior Living Arrangements House Comment Patient was at [facility] post last hospt admission on 01/01 for approximatley 2 weeks and then followed at home with Home Health Household Members family Comment Patient's duaghter Agnes has been staying with him. And his daughter Nessa lives close. Type of transporation used prior to Relies on Others admit Comment Daughters provide transportation Independent with ADL's No Is patient alert and oriented? Yes Needs Assistance With Bathing,Meal Prep,Home Chores / Shopping Caregiver for Another No Community Services used prior to Physical Therapy admission: Comment Patient was using [facility] for therapy per daughter Nessa DME Already Rented / Owned Cane Barriers to Discharge No Discharge Plan Home Transportation Arrangement Daughter Nessa Whiteboard Updated in Patient Room with Yes name and ext. # of Bit Sharpener Operator Review Status In Process
[2021-01-28] MEDS: TAMSULOSIN 0.4 MG CAPSULE PO (21:13)
[2021-01-29] VITALS (10 sets, daily range): BP systolic 130–149; BP diastolic 63–78; PULSE 61–88; RESP 16–24; TEMP 36.3–36.9; O2SAT 89–96; BMI 30.6
--- NOTE | 2021-01-29 00:46 | PC.NURSE ---
Addendum entered by Irlanda Rowan R.N. 01/29/21 05:43: Patient becoming increasingly confused during this shift. This morning continually throwing legs out sides of bed and throwing self toward end of bed. When staff attempted to assist him he became very belligerent, hollering at staff and verbally abusive calling staff you dumb bitches. Assisted to get up to recliner with walker and 2 assists after which patient more cooperative and now watching TV; chair alarm is on. Original Note: patient is alert and oriented except for day of month/day of week. Is very [place] and does not have hearing aids. Breath sounds diminished throughout but CTA; on oxygen at 4.5L/min per [place] with sat of 97%. Respirations are shallow and is tachypneic but denies SOB; on continuous pulse oximetry. HRR w/telemetry reading of SR. Denies nausea. BT present and abdomen is soft. Denies dysuria, frequency or urgency with urination; is sometimes incontinent. Able to move self in bed and when staff attempt to help him he becomes upset and states stop pushing. Coccyx noted to be pink/blanchable but no open areas noted. Denies pain at rest but states he does have pain when up. Gait not assessed but previous RN states he requires walker w/2 assist when out of bed; has not yet had PT. Refusing SCD's so reminded to ankle wave when awake. Fall risk score is high and bed alarm is activated.
[2021-01-29] MEDS: PIPERACILLIN/TAZO 3.375 GM in SODIUM CHLORIDE 0.9% 100 ML 25 ML IV ×3 (01:41→18:10)
[2021-01-29 05:32] LABS: Hematocrit 30.4 % (41-53); Hemoglobin 9.8 g/dL (13.5-17.5); Mean Corpuscular HGB Conc 32.1 % (30-36); Mean Corpuscular Hemoglobin 25.8 PG (26-34); Mean Corpuscular Volume 80.4 fL (80-100); Platelet Count 286 X10^3/uL (150-400); Red Blood Cell Count 3.78 X10^6/uL (4.5-5.9); Red Cell Distribution Width 18.7 % (11.6-14.8); White Blood Cell Count 6.6 X10^3/uL (4.5-11.0)
[2021-01-29 05:39] LABS: BUN Creatinine Ratio 27.3 (6-22); Blood Urea Nitrogen 18 mg/dL (9-20); Calcium 8.9 mg/dL (8.4-10.2); Carbon Dioxide 31 mmol/L (22-32); Chloride 101 mmol/L (98-107); Estimated Glomerular Filt Rate > 60.0 mL/min (>60); Glucose 107 mg/dL (80-110); HEMOLYSIS < 15 (0-50); Potassium 4.5 mmol/L (3.4-5.1); Sodium 137 mmol/L (137-145)
[2021-01-29] MEDS: DULOXETINE 20 MG CAPSULE PO (08:20)
[2021-01-29] MEDS: atenoloL 50 MG TABLET PO ×2 (08:21→20:43)
[2021-01-29] MEDS: ENOXAPARIN 40 MG/0.4 ML SYRINGE SUBCUT (08:22)
[2021-01-29] MEDS: SODIUM CHLORIDE 0.9% FLUSH 10 ML IV ×2 (10:05→20:44)
--- NOTE | 2021-01-29 10:53 | OT.IP.EVAL ---
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) Hemorrhoids Hyperlipemia Hypertension Hyperthyroidism Insomnia Obstructive sleep apnea Osteoarthritis Papules Primary insomnia (09/16/16) Pure hypercholesterolemia (02/12/16) Squamous cell carcinoma Surgical History (Last Reviewed 01/27/21 @ 19:20 by Kary Christian DO) History of ectropion repair (10/2017) Hx of surgical procedure Occupational Therapy Inpatient Evaluation/Re-Eval M1 PT/OT-IP Prior Functional Status Start: 01/28/21 15:17 Freq: NEEDED Status: Active Protocol: Document 01/29/21 10:53 [facility] (Rec: 01/29/21 12:34 [facility] [id number]) Medical Review Prior Functional Status Medical History Reviewed Yes Communication Independent Mobility and Gait Pt states use of SPC in the home. Activities of Daily Living and IADL's Pt states prior needing assist for his sock, shoes, and pants from his daughter. Pt states able to shower on his own while standing and use of grab bars in the shower. Pt's daughter assist with meals, medications, and IADl needs. Prior Functional Level (Other details) Pt to have his daughter, Cathy to assist pt at home. Social History Household Members family Living Arrangements House Number of Floors (Floors) One Floor Number of Stairs To Enter/Railing? 5 steps with right rail going up. Home Environment Standard Height Toilet,Walk in Shower,Built-In Shower Seat Home Equipment Front Wheel Walker,Four Wheel Walker,Straight Cane,Manual Wheelchair,Grab Bars In Shower M2 OT-IP Current Condition Start: 01/29/21 12:13 Freq: Status: Active Protocol: Document 01/29/21 10:53 [facility] (Rec: 01/29/21 12:34 [facility] [id number]) Occupational Therapy Current Condition Current Condition Evaluation Date 01/29/21 Treatment Diagnosis Acute respiratory failure, sepsis, acute PNA, decreased mobility. Diagnosis Onset Date 01/27/21 M3 OT- IP Subjective and Pain Start: 01/29/21 12:13 Freq: Status: Active Protocol: Document 01/29/21 10:53 [facility] (Rec: 01/29/21 12:34 [facility] [id number]) OT- Subjective Occupational Therapy Visit Type Type Initial Evaluation Visit Start Time 10:53 Visit Stop Time 11:38 Total Visit Minutes 45 Occupational Therapy Visit Comments Patient Comments Pt agreed to work with OT and PT for evals. Patient/Caregiver Goals To go home. OT Pain Assessment Pain When Pain Assessed During Mobility Pain Present Pain Present Pain Reported M4 OT- IP ADL's Start: 01/29/21 12:13 Freq: Status: Active Protocol: Document 01/29/21 10:53 [facility] (Rec: 01/29/21 12:34 [facility] [id number]) OT [id number] Comments OT Self-Feeding Comments NOt at meal time. OT ADL-Grooming General Evaluation Grooming Ability Standby Assistance Comments OT Grooming Comments SBA while standing at the sink . OT ADL-Dressing General Eval Lower Body Dressing Ability Maximum Assistance Comments OT Dressing Comments Pt states his daughter has to assist to help get socks and shoes on and assist to help get his pants over his feet. OT ADL-Toileting General Evaluation Toileting Ability Standby Assistance OT ADL-Bathing Comments OT Bathing Comments Not performed. M5 OT- IP IADL's Start: 01/29/21 12:13 Freq: Status: Active Protocol: Document 01/29/21 10:53 [facility] (Rec: 01/29/21 12:34 [facility] [id number]) OT-Instrumental Activities of Daily Living Medication Management Medication Management Comments Pt states to start using a pill organizer and suggested pt have his daughter to assist with his needs. Money Management Money Management Comments Pt states does on his own but would be best if his daughter assists now. Meal Preparation Meal Preparation Caregiver Provides Assist Tank Calibrator Tank Calibrator Caregiver Provides Assist Driving Driving Caregiver Provides Assist Driving Comments Pt states no longer drives. M6 OT- IP Functional Cognition Start: 01/29/21 12:13 Freq: Status: Active Protocol: Document 01/29/21 10:53 [facility] (Rec: 01/29/21 12:34 [facility] [id number]) Cognitive Factors Limiting Selfcare Function Cognitive Ability Level of Alertness Alert Patient Orientation Name,Place,Situation Attention Span Ability Capable of Focused Attention, Capable of Sustained Attention Ability to Follow Commands Able to Follow One Step Commands Memory Description Short Term Impaired Safety Awareness Underestimates Need for Assistance Problem Solving Ability Unable to Identify Errors, Needs Assist to Identify Solutions Cognitive Comments Cognitive Assessment Comments Pt forgetting that the sink was outside of the bathroom. Pt needing safety cues that it would be best to back up all the way to the toilet before sitting down, in addition cues , before coming to stand best to pull up the brief at high at he can , then stand and pull up over his hips. Pt also needing cues for deep breathing, as O2 dropping when pt tiring. OT- Vision and Hearing OT- Hearing Assessment OT- Hearing Assessment WFL OT- Vision Assessment Visual Acuity Glasses All The Time M7 OT- IP Mobility and Balance Start: 01/29/21 12:13 Freq: Status: Active Protocol: Document 01/29/21 10:53 [facility] (Rec: 01/29/21 12:34 [facility] [id number]) OT-Transfer Assessment Sit to and From Stand Sit to and from Stand Standby Assistance,Contact Guard Assistance Transfers Transfer Ability Standby Assistance,Contact Guard Assistance Technique Transfer Destination Bed,Toilet Transfer Technique Stand Step Pivot Devices Transfer Assistive Devices Gait Belt,Straight Cane Comments Mobility Comments From CGA to SBA with SPC in the room and assist to help manage the IV pole. Pt on RA after walking in the room, grooming at the sink and then while on the toilet dropped to 83% and needing vc for pulse lip breathing and increased to 91% after 2 minutes. after getting back to bed 88% and up over 90% after several seconds. Pt requesting to put back on the O2 and readings at 97%, nursing notified. OT- Balance Assessment Sitting Balance and Reactions Static Sitting Balance Ability Good Dynamic Sitting Balance Ability Fair Standing Balance and Reactions Static Standing Balance Ability Fair M8 OT- IP Objective Assessments Start: 01/29/21 12:13 Freq: Status: Active Protocol: Document 01/29/21 10:53 [facility] (Rec: 01/29/21 12:34 [facility] [id number]) OT Gross Range of Motion Upper Extremity Range of Motion Assessment Within Functional Limits OT Strength Upper Extremity Strength Assessment Within Functional Limits M9 OT- IP Assessment and Plan Start: 01/29/21 12:13 Freq: Status: Active Protocol: Document 01/29/21 10:53 [facility] (Rec: 01/29/21 12:34 [facility] [id number]) OT Summary Assessment and Plan Potential Rehabilitation Potential Good Analytic Complexity at Evaluation Moderate Summary OT Impairments Pain,Balance,Functional Cognition,Functional Mobility, Grooming,Dressing,Toileting, Bathing,Toilet Transfers, Shower Transfers,Activity Tolerance Progress Towards Goals Slow Progress due to Pain,Slow Progress due to Medical Issues,Slow Progress due to Activity Tolerance Assessment Summary Pt mod complexity and barriers at home are steps, decreased activity tolerance and currently on 2.5 L on O2, pt needing more assist for LB dressing , decreased safety awareness, and now needing one person to assist for his needs. Pt to have his daughter assist with his needs when medically stable. Goals Grooming Goal Independent Dressing Goal Minimal Assistance Toileting Goal Independent Bathing Goal Independent Toilet Transfer Goal Independent Shower Transfer Goal Independent Days to Meet Goals 7 Frequency of Treatment Frequency Of Treatment Once a Day Treatment Plan OT Treatment Plan ADL Training,Functional Cognition Training,Functional Mobility,Patient/Family Education,Discharge Planning Other Treatment Recommendations and Next shower, energy conservation Treatment Focus needs Discharge Recommendations OT Discharge Recommendations Home with Assistance Home Equipment Needs shower chair Transportation Needs at Discharge Private Vehicle
--- NOTE | 2021-01-29 11:09 | PT.IIE ---
Current Diagnoses Sepsis, unspecified organism (01/27/21) Surgical History (Last Reviewed 01/27/21 @ 19:20 by Kary Christian DO) History of ectropion repair (10/2017) Hx of surgical procedure Medical History (Last Reviewed 01/27/21 @ 20:51 by Severino Piedra MD) Acquired hypothyroidism (09/16/16) Actinic keratosis Basal cell carcinoma 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) Bilateral edema of lower extremity (06/29/15) Bilateral knee pain BPH (benign prostatic hyperplasia) Colon polyps Depression (06/29/15) Depression Erectile dysfunction (02/12/16) Erectile dysfunction Essential hypertension (06/29/15) 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 He is able to make his needs known. Per outpatient RADIO SURVEY WORKER notes, pt recently scored 18/30 on SLUMS which is consistent with dementia. Mobility and Gait Pt uses a SPC 100% of the time . He is falling regularly - often backwards. He has bilateral knee pain (left more affected than right) which limit his mobility to household and very short community distances. Activities of Daily Living and IADL's Pt states his daughters assist with lower body dressing tasks. He is often incontinent of urine and uses absorbent briefs. He has SBA for showers . Prior Functional Level (Other details) Pt was admitted in December and discharged to [facility] for SNF rehab. Social History Household Members family Living Arrangements House Number of Floors (Floors) One Floor Number of Stairs To Enter/Railing? 5 SAMANTHA with narrow bilateral rails Home Environment Standard Height Toilet,Walk in Shower,Built-In Shower Seat Home Equipment Front Wheel Walker,Four Wheel Walker,Straight Cane,Manual Wheelchair,Raised Toilet Seat w/Armrests,Grab Bars Near Toilet Employment Status Retired Additional Social History Comment Pt typically sleeps in a recliner. Pt's daughters have been coordinating care. Cathy has been staying with him. Daughter, Agnes, was previously providing care at home and will be returning from [place] to stay with pt again when he goes home. M2 PT-IP Current Condition Start: 01/28/21 15:17 Freq: NEEDED Status: Active Protocol: Document 01/29/21 11:09 [facility] (Rec: 01/29/21 12:58 AW [id number]) Physical Therapy Current Condition Current Condition Evaluation Date 01/29/21 Treatment Diagnosis acute respiratory failure, sepsis, difficulty in walking Onset Date 01/27/21 M3 PT-IP Subjective Start: 01/28/21 15:17 Freq: NEEDED Status: Active Protocol: Document 01/29/21 11:09 [facility] (Rec: 01/29/21 12:58 AW [id number]) Subjective Physical Therapy Visit Type Type Initial Evaluation Visit Start Time 10:52 Visit Stop Time 11:09 Total Visit Minutes 17 Notes Co-tx with OT due to pt's poor activity tolerance. Pt on 2.5 L/min O2 with SpO2 93-96%. On room air, pt desats to 88% at rest and with activity. Physical Therapy Visit Comments Patient Comments Pt is willing to participate with therapies Patient Goals Return home with family support. Therapy Pain Assessment Pain When Pain Assessed During Mobility Location bilateral knees Scale Used not quantified Pain Management Techniques Distraction,Modification of Treatment M4 PT-IP Mobility and Gait Start: 01/28/21 15:17 Freq: NEEDED Status: Active Protocol: Document 01/29/21 11:09 [facility] (Rec: 01/29/21 12:58 AW [id number]) PT-Transfer Assessment Sit to and From Stand Sit to and from Stand Contact Guard Assistance,1 Person Assistance,Use of Upper Extremities Equipment Transfer Assistive Device Gait Belt,Straight Cane Transfers Transfer Destination Chair,Toilet Transfer Technique Stand Step Pivot Transfer Ability Level of Assist Contact Guard Assistance,Use of Upper Extremities Comments Mobility Comments Pt was sitting up on the window seat as PT and OT arrived. He had removed his O2 and SpO2 at rest wass 89%. Replaced NC and SpO2 recovered to 96%. He needed two attempts but ultimately stood from the seat CGA and ambulated toward the toilet with SPC CGA. He transferred to and from the toilet with use of grab bars CGA and then ambulated around the room a total of 40 feet with SPC CGA. He sat on the chair SBA and was left with OT for further assessment. Pt sleeps in a recliner at home so bed mobility not assessed. Gait Assessment Gait Gait Assistance Required: Contact Guard Assist Distance (Feet) 40 Assistive Devices Assistive Device Gait Belt,Straight Cane Orthotic/Prosthetic Devices or Brace: No Gait Deviations General Gait Pattern Antalgic,Decreased Stride Length,Decreased Feet Clearance,Flexed Trunk,Lateral Trunk Lean,Wide Based Gait Factors Limiting Gait Function Factors Limiting Gait Function Decreased Activity Tolerance, Decreased Strength,Pain,Poor Balance,Poor Safety Awareness Comments Gait Comments Pt ambulated in the room with SPC CGA and no observed LOB. Stair Climbing Assessment Comments Stair Climbing Comments Not assessed. PT-Balance Assessment Sitting Balance and Reactions Static Sitting Balance Ability Good Dynamic Sitting Balance Ability Fair Standing Balance and Reactions Static Standing Balance Ability Fair Dynamic Standing Balance Ability Fair Device Used SPC M5 PT-IP Objective Assessments Start: 01/28/21 15:17 Freq: NEEDED Status: Active Protocol: Document 01/29/21 11:09 AW (Rec: 01/29/21 12:58 AW [id number]) Orientation Orientation/Cognition Level of Alertness Alert Orientation Name,Day of Week,Place, Situation Language Function Ability Hard of Hearing Safety Awareness Decreased Safety Awareness Memory Description Short Term Impaired Gross Range of Motion Lower Extremity ROM Assessment Bilaterally Impaired Impairments Lacking TKE bilaterally. Active dorsiflexion only to neutral. Painful left knee flexion past 80 degrees. Strength Lower Extremity Strength Assessment Bilaterally Impaired Hip 4-/5 Knee R 4/5; L 3+/5 Ankle 4/5 Sensation Assessment Sensation Gross Sensation WNL Muscle Tone Muscle Tone WNL Yes Other Assessments Other Other Assessments See notes above for SpO2 monitoring at rest and during activity, on and off O2. M6 PT-IP Treatment Start: 01/28/21 15:17 Freq: NEEDED Status: Active Protocol: Document 01/29/21 11:09 AW (Rec: 01/29/21 12:59 AW [id number]) Physical Therapy Treatment Education Education Provided Safety M7 PT-IP Assessment and Plan Start: 01/28/21 15:17 Freq: NEEDED Status: Active Protocol: Document 01/29/21 11:09 AW (Rec: 01/29/21 12:58 AW [id number]) PT Summary Assessment and Plan Potential Rehabilitation Potential Fair Status of Condition at Evaluation Stable Summary Impairments ROM,Strength,Balance,Cognition ,Bed Mobility,Transfers,Gait Assessment Summary Heranndez is an 85 yo man admitted with acute respiratory failure, sepsis, pneumonia. He discharged from this unit on 01/01/21 and had a short rehab stay at [facility] [place] before returning home. Pt uses a SPC at baseline for household and short community distances. He has family assist at home. On evaluation, pt required CGA for transfers and ambulation in the room with SPC. Once medically stable, pt will be safe to discharge home with family assist and would benefit from home health therapy to improve strength and reduce falls risk. Goals Transfer Goal Standby Assistance,Cane Gait Goal Standby Assistance,Cane Gait Distance 75 Other Goals - up/down 4 steps with B rails CGA Days to Meet Goals 5 Frequency of Treatment Frequency Of Treatment Once a Day Treatment Plan Physical Therapy Treatment Plan Bed Mobility Training,Transfer Training,Gait Training, Therapeutic Exercise,Balance Retraining,Discharge Planning, Hot or Cold Pack,Neuromuscular Re-ed,Coordination Retraining Other Recommendations and Next Treatment transfers, gait assessment Focus with FWW vs SPC Precautions Other Precautions falls Recommendations To Nursing Amount of Assist Needed 1 Person Assist Discharge Recommendations PT Discharge Recommendations Home with Assistance,Home with 17/03 Assist Available,Home Health Transportation Needs at Discharge Private Vehicle
--- NOTE | 2021-01-29 13:53 | PM.PN.1 ---
Subjective Subjective Date Patient Seen: 01/29/21 Time Patient Seen: 08:53 Interval history: Today he has no concerns. Is looking forward to get home. Overnight was confused and agitated. Today he denies shortness of breath but he did desaturate to 80s when oxygen removed. Exam Vital Signs (past 8 hours): - 01/29/21 07:37 01/29/21 07:40 01/29/21 07:41 Temperature Pulse Rate 62 61 72 Respiratory Rate 16 16 16 Blood Pressure Pulse Oximetry 96 89 L 93 01/29/21 08:00 01/29/21 12:00 Temperature 97.3 F L 97.5 F L Pulse Rate 87 77 Respiratory Rate 24 24 Blood Pressure 146/75 H 130/63 Pulse Oximetry 95 96 Fraction of Inspired Oxygen 38 Oxygen Delivery Method Nasal Cannula Oxygen Flow Rate 2.5 Narrative Exam Narrative: GEN: chronically ill appearing, mild respiratory distress HEENT: moist mucous membranes, PERRL NECK: trachea midline, no JVD CV: regular rate and rhythm, no murmurs PULM: coarse breath sounds bilaterally ABD: soft, nontender, nondistended, no organomegaly, normal bowel sounds EXT: warm and well perfused with no edema NEURO: awake alert and oriented, moving all extremities with no gross deficits PSYCH: pleasant, cooperative Objective Labs Result Diagrams: 01/29/21 04:55 01/29/21 04:55 Labs: Laboratory Results - last 24 hr 01/29/21 01/29/21 04:55 04:55 WBC 6.6 RBC 3.78 L Hgb 9.8 L Hct 30.4 L MCV 80.4 MCH 25.8 L MCHC 32.1 RDW 18.7 H Plt Count 286 Sodium 137 Potassium 4.5 Chloride 101 Carbon Dioxide 31 BUN 18 Creatinine 0.66 Estimated GFR > 60.0 BUN/Creatinine Ratio 27.3 H Glucose 107 Calcium 8.9 PFSH Medical History Acquired hypothyroidism (09/16/16) Actinic keratosis Basal cell carcinoma 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) Bilateral edema of lower extremity (06/29/15) Bilateral knee pain BPH (benign prostatic hyperplasia) Colon polyps Depression (06/29/15) Depression Erectile dysfunction (02/12/16) Erectile dysfunction Essential hypertension (06/29/15) 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 George is an 85M who presents with acute respiratory failure and sepsis from acute pneumonia. 1. Acute respiratory failure, with sepsis as evidence with leukocytosis, fever, acute respiratory failure with SOFA score of 3 from acute pneumonia unclear if viral or bacterial -in respiratory failure, on high flow nasal cannula on admission, now on nasal cannula -initial WBC of 11.6, improved to 6.6 on antibiotics -discussed with patient with kelly at bedside and he is DNR/DNI at this time -started broad antibiotics with vanco/zosyn/azithro -ordered 30cc/kg IVF bolus due to sepsis -lactate 1.9 on admission -blood pressure normal on admission -no history of CHF, and no evidence of volume overload to preclude fluid resuscitation -tylenol prn for fever -covid negative -respiratory panel negative -sputum cultured ordered -blood cultures pending -urinalysis negative for infection -has some questionable edema on xray and did get fluid bolus for sepsis, will start diuresis 01/29 2. History of CVA - off antiplatelets presumably for GI bleed 3. History of GI bleed - CBC currently stable with mild anemia, hemoglobin in mid 10s 4. BPH -continue tamsulosin 5. HTN -restart atenolol as patient with brief runs of self resolving svt, ordered mag rider for mag of 1.8 6. Hypoglycemia -monitor blood sugars q4 for now -likely in setting of infection IVF: per sepsis protocol DIET: Regular DVT ppx: Lovenox SC CODE: DNR, discussed with patient and daughter Agnes who is proxy,
[2021-01-29] MEDS: FUROSEMIDE 40 MG/4 ML VIAL IV (15:02)
[2021-01-29] MEDS: AZITHROMYCIN 500 MG in DEXTROSE 5% IN WATER 250 ML IV (15:02)
--- NOTE | 2021-01-29 15:25 | PC.NURSE ---
Pt has been AO and forgetful. Forgetful to call and wait for assistance before getting OOB so bed/chair alarm in use. Pt has been incontinent of urine and requiring use of brief. Have weaned O2 to RA and pt has been maintaining SPO2 91-94%. Pt is requesting that Agnes, daughter, not be given any information over the phone. Relayed this information to case management and next shift RN.
--- NOTE | 2021-01-29 15:38 | CM.DANOTE ---
DCP Continued: CUSTOMER EXPERIENCE MANAGER met with patient during morning rounds. Therapy recommendation is home with home health, no SNF indicated at this time. This flex o writer operator called and spoke with Agnes to inquire about discharge planning she recommended to call Nessa as she is the one here to help care for her father. Then called and spoke with daughter Nessa this date, she is aware her father may need oxygen at time of D/C. She was made aware SNF is not recommended. Provider reports that he is going to try and wean patient of 02. Nessa reported she understood and was in agreement to take her father home when he is medically stable. Provided Nessa with resources for self-pay caregivers and [id number]. Nessa stated she has a number for a self-pay printing film stripper she plans to call. Provided her with [facility] number for [id number]. Explained CM Team will also, reinstate [facility] at time of discharge. Called [facility], spoke with Irina she confirmed the only document needed is an order to resume services. This afternoon RNArtie reports patient has asked that no additional medical information be provided to his daughter Agnes. CUSTOMER EXPERIENCE MANAGER met with patient and patient confirms that him and daughter in current disagreement. Patient does not go into specific reasons. Patient does not want Agnes removed from his demographic sheet or as his emergency contact. RN to pass on to staff if Agnes calls requesting information call will need to be transferred to patient?s room. PLAN: Anticipate home with [facility] resumed and support from family. Start of care will need to be confirmed and d/c date provided to [facility]. CM Team will continue to follow. LINDA Pendleton MSW Student
[2021-01-29] MEDS: TAMSULOSIN 0.4 MG CAPSULE PO (20:43)
[2021-01-29] MEDS: DOCUSATE 100 MG CAPSULE PO (20:43)
[2021-01-29] MEDS: MELATONIN 3 MG TABLET 9 MG PO (22:46)
--- NOTE | 2021-01-30 01:48 | PC.NURSE ---
patient is alert and oriented except to day of month; can be forgetful. Restless tonight alternating between lying in bed and sitting up on edge of bed. Is [place] without hearing aids. Breath sounds diminished with inspiratory crackles in right LL; RA sat 90% and desats into upper 80's with activity so placed on oxygen at 1L/min; on continuous oximetry. Respirations are shallow and does have some expiratory wheezes with activity. Chronic dry cough. HRR with telemetry reading of SR. Denies nausea. BT present and abdomen is soft. Has been both continent and incontinent of urine; denies dysuria, frequency or urgency. Is able to move himself in bed. Up with walker and 1 assist. Denies pain. Refusing to use SCD's. Fall risk score is high and bed alarm is activated.
[2021-01-30] MEDS: PIPERACILLIN/TAZO 3.375 GM in SODIUM CHLORIDE 0.9% 100 ML 25 ML IV ×2 (01:59→10:11)
[2021-01-30] MEDS: SODIUM CHLORIDE 0.9% FLUSH 10 ML IV ×2 (01:59→08:23)
[2021-01-30] MEDS: SODIUM CHLORIDE 0.9% 250 ML 21 ML IV (02:00)
[2021-01-30 02:08] VITALS: O2SAT 94
[2021-01-30 04:13] VITALS: BP 141/72; PULSE 85; RESP 18; TEMP 36.9; O2SAT 96
[2021-01-30 04:29] LABS: Hemoglobin 10.3 g/dL (13.5-17.5); Mean Corpuscular HGB Conc 32.2 % (30-36); Mean Corpuscular Hemoglobin 25.9 PG (26-34); Mean Corpuscular Volume 80.5 fL (80-100); Platelet Count 328 X10^3/uL (150-400); Red Blood Cell Count 3.98 X10^6/uL (4.5-5.9); Red Cell Distribution Width 18.9 % (11.6-14.8)
[2021-01-30 04:34] LABS: BUN Creatinine Ratio 22.8 (6-22); Blood Urea Nitrogen 18 mg/dL (9-20); Calcium 9.6 mg/dL (8.4-10.2); Carbon Dioxide 33 mmol/L (22-32); Chloride 96 mmol/L (98-107); Estimated Glomerular Filt Rate > 60.0 mL/min (>60); Glucose 120 mg/dL (80-110); HEMOLYSIS < 15 (0-50); Potassium 4.2 mmol/L (3.4-5.1); Sodium 137 mmol/L (137-145)
[2021-01-30 08:00] VITALS: BP 145/65; PULSE 80; RESP 18; TEMP 36.8; O2SAT 95
[2021-01-30 08:04] VITALS: PULSE 81; RESP 18; O2SAT 97
[2021-01-30 08:05] VITALS: PULSE 81; O2SAT 97
[2021-01-30] MEDS: DOCUSATE 100 MG CAPSULE PO (08:22)
[2021-01-30] MEDS: polyethylene glycoL 3350 17 GM POWD.PACK PO (08:22)
[2021-01-30] MEDS: ENOXAPARIN 40 MG/0.4 ML SYRINGE SUBCUT (08:22)
[2021-01-30] MEDS: atenoloL 50 MG TABLET PO (08:23)
[2021-01-30] MEDS: DULOXETINE 20 MG CAPSULE PO (08:23)
[2021-01-30] MEDS: FUROSEMIDE 20 MG/2 ML VIAL IV (08:23)
--- NOTE | 2021-01-30 08:59 | P.DS_ITS ---
History of Present Illness History of Present Illness Chief complaint: weakness, near syncopal Narrative: Mr. George is an 85M PMH gout, HTN, former smoker with long smoking history but recently quit, history of CVA, history of GI bleed due to ulcers from NSAIDs hypothyroid, osteoarthritis who comes in with weakness. He apparently had been seen a week ago here for asymptomatic hematuria, was not found to have a urinary tract infection. Per the daugther about 3 days ago he developed urinary urgency, lost his appetite. He had a cough with some phlegm production. Starting yesterday he began to be lethargic. He denies shortness of breath. No chest pain. No nausea, vomiting, diarrhea. No subjective chills or f carlos. In the ER, workup was done, he was noted to be hypoxemic, he was found to be febrile at >101. Labs showed WBC at 11.6, 89.3% PMNs. Initial abg off oxygen with PaO2 of 46. Creatinine 0.95. Lactate 1.9. BNP 885. Procal 0.15. Urinalysis with no leuk esterase, no WBC, no bacteria. Chest xray with no acute process. CTA chest with no PE, but patchy alveolar patter, concering for atypical/viral pneumonia. COVID negative. He was ordered for vancomycin, zosyn, azithromycin. He was admitted for further treatment. Discharge Providers Provider Date of admission: 01/27/21 16:57 Discharge Date: 01/30/21 Primary care physician: Larry Roman MD Consults: 01/27/21 18:20 Consult to Respiratory Therapy Evaluate & Treat Comment: Physician Instructions: Evaluate and treat 01/27/21 19:16 Consult to Dietitian, Adult Routine Comment: Reason For Exam: At risk for malnutrition per admit assessment. 01/28/21 08:22 Consult to Physical Therapy Evaluate & Treat Comment: Physician Instructions: Evaluate and Treat 01/29/21 10:47 Consult to Occupational Therapy Evaluate & Treat Comment: Physician Instructions: Evaluate and treat 01/30/21 14:49 Consult to Home Health Routine Comment: pneumonia, acute respiratory failure, sepsis Reason For Exam: [facility] RN and PT Discharge provider: Severino Piedra MD Summary Hospital Course Discharge Diagnosis: 1. Acute respiratory failure with sepsis secondary to pneumonia 2. Volume overload from significant volume resuscitation 3. History of CVA 4. History of GI bleed 5. BPH 6. HTN 7. Hypoglycemia 8. Gout 9. Hypothyroid Hospital Course: Mr. George came in with significant hypoxemia. He never felt significant shortness of breath. However on initital presentation he was in acute respiratory failure with hypoxemia in the 80s and required high flow nasal cannula at 50L at 35% fio2. His white count was high at 11.6 and he was febrile dto greater than 101. CT showed patchy consolidation concerning for atypical/viral pneumonia. He was initially on broad spectrum antibiotics. He had no growth in his cultures. His respiratory panel was negative. He improved greatly, but did require lasix to get off oxygen, likely because on initial presentation he received fluid bolus in accordance with sepsis protocol. On day of discharge he was off oxygen. He will be discharged with 5 more days of antibiotics to complete a course of antibiotics for pneumonia and he will be discharged on low dose lasix. He had a recent ECHO done which showed preserved EF with no history of CHF. Exam Vital Signs (past 8 hours): Fraction of Inspired Oxygen 38 Oxygen Delivery Method Room Air Oxygen Flow Rate 1 Narrative Exam Narrative: GEN: no acute distress HEENT: moist mucous membranes, PERRL NECK: trachea midline, no JVD CV: regular rate and rhythm, no murmurs PULM: coarse breath sounds bilaterally ABD: soft, nontender, nondistended, no organomegaly, normal bowel sounds EXT: warm and well perfused with no edema NEURO: awake alert and oriented, moving all extremities with no gross deficits PSYCH: pleasant, cooperative Objective Labs Result Diagrams: 01/30/21 04:10 01/30/21 04:10 [facility] Medical History Acquired hypothyroidism (09/16/16) Actinic keratosis Basal cell carcinoma 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) Bilateral edema of lower extremity (06/29/15) Bilateral knee pain BPH (benign prostatic hyperplasia) Colon polyps Depression (06/29/15) Depression Erectile dysfunction (02/12/16) Erectile dysfunction Essential hypertension (06/29/15) 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) Hemorrhoids Hyperlipemia Hypertension Hyperthyroidism Insomnia Obstructive sleep apnea Osteoarthritis Papules Primary insomnia (09/16/16) Pure hypercholesterolemia (02/12/16) Squamous cell carcinoma Surgical History History of ectropion repair (10/2017) Hx of surgical procedure Family History Family/Other Unknown family medical history Social History household members: family Smoking Status: Former smoker Discharge Plan Discharge Plan Patient Disposition: Home Health Service Provider Discharge Comment: Mr. George came in with weakness. He was found to have a pneumonia. He also had some fluid in his lungs because of the infection and needing IV fluids to help fight the pneumonia. He was initially needing high amounts of oxygen. But on day of discharge he was breathing well off oxygen. He will be continued on antibiotics to complete a treatment for pneumonia and he will be given a prescription to help reduce fluid in his body. He should follow up with his primary care doctor within a week to make sure he is still improving. He will setup with home health physical therapy. Discharge orders & Medications Prescriptions: New levofloxacin 750 mg tablet 750 mg PO DAILY Qty: 5 RF: 0 furosemide [Lasix] 20 mg tablet 20 mg PO DAILY Qty: 30 RF: 0 Continued duloxetine 20 mg capsule,delayed release(DR/EC) 20 mg PO DAILY Qty: 90 RF: 1 amlodipine 10 mg tablet See Rx Instructions .ROUTE .COMPLEX Qty: 90 RF: 3 pantoprazole 40 mg tablet,delayed release (DR/EC) 40 mg PO BID Qty: 90 RF: 3 trazodone 100 mg tablet 100 mg PO BEDTIME Qty: 180 RF: 3 cholecalciferol (vitamin D3) 50 mcg (2,000 unit) Tablet 50 mcg PO DAILY RF: 0 Adult Probiotic 3 billion cell Capsule 3,000 mmu cells PO DAILY RF: 0 allopurinol 100 mg tablet 100 mg PO DAILY RF: 0 atenolol 50 mg tablet 50 mg PO BID RF: 0 acetaminophen 650 mg Tablet 650 mg PO Q4H PRN (Reason: pain) RF: 0 tamsulosin [Flomax] 0.4 mg Capsule 0.4 mg PO BEDTIME RF: 0 famotidine 20 mg Tablet 20 mg PO BID RF: 0 hydrocodone-acetaminophen 5-325 mg Tablet 1 tab PO Q4HR PRN (Reason: Pain, Moderate (4-6)) Qty: 10 RF: 0 Follow up/Referrals: Larry Roman MD [Primary Care Provider] - Diet/Activity/Treatments Diet: Low-sodium Discharge Data Primary Care Provider: Larry Roman Quality MIPS - DC The patient has current or prior documentation of left ventricular ejection fraction (LVEF) less than 40%, or moderate or severely depressed left ventricular systolic function.: No
--- NOTE | 2021-01-30 09:20 | OT.IP.TRT ---
Current Diagnoses Sepsis, unspecified organism (01/27/21) Occupational Therapy Treatment Note M2 OT-IP Current Condition Start: 01/29/21 12:13 Freq: Status: Active Protocol: Document 01/29/21 10:53 [facility] (Rec: 01/29/21 12:34 [facility] [id number]) Occupational Therapy Current Condition Current Condition Evaluation Date 01/29/21 Treatment Diagnosis Acute respiratory failure, sepsis, acute PNA, decreased mobility. Diagnosis Onset Date 01/27/21 M3 OT- IP Subjective and Pain Start: 01/29/21 12:13 Freq: Status: Active Protocol: Document 01/30/21 09:21 [facility] (Rec: 01/30/21 09:30 [facility] [id number]) OT- Subjective Occupational Therapy Visit Type Type Treatment Note Visit Start Time 09:06 Visit Stop Time 09:20 Total Visit Minutes 14 Occupational Therapy Visit Comments Patient Comments Pt just getting settled back to the recliner with nursing aid and not open to getting up again as not wanting to aggravate his right knee pain. Pt open to going over deep breathing and energy conservation needs. Spoke to nurse and hospitalist if pt could have spirometer to help facilitate better breathing. Hospitalist agreed and nurse states to give one to him. Patient/Caregiver Goals TO go home. OT Pain Assessment Pain When Pain Assessed At Rest Pain Present Pain Present Denied Pain M5 OT- IP IADL's Start: 01/29/21 12:13 Freq: Status: Active Protocol: Document 01/29/21 10:53 [facility] (Rec: 01/29/21 12:34 [facility] [id number]) OT-Instrumental Activities of Daily Living Medication Management Medication Management Comments Pt states to start using a pill organizer and suggested pt have his daughter to assist with his needs. Money Management Money Management Comments Pt states does on his own but would be best if his daughter assists now. Meal Preparation Meal Preparation Caregiver Provides Assist Aix System Administrator Aix System Administrator Caregiver Provides Assist Driving Driving Caregiver Provides Assist Driving Comments Pt states no longer drives. M6 OT- IP Functional Cognition Start: 01/29/21 12:13 Freq: Status: Active Protocol: Document 01/30/21 09:21 [facility] (Rec: 01/30/21 09:30 [facility] [id number]) Cognitive Factors Limiting Selfcare Function Cognitive Ability Level of Alertness Alert Patient Orientation Name,Place,Situation Attention Span Ability Capable of Focused Attention, Capable of Sustained Attention Ability to Follow Commands Able to Follow One Step Commands Memory Description Short Term Impaired Safety Awareness Underestimates Need for Assistance Problem Solving Ability Unable to Identify Errors, Needs Assist to Identify Solutions Cognitive Comments Cognitive Assessment Comments Able to go over energy conservation and deep breathing information with pt . Pt able to states good understanding for all information. OT- Balance Assessment Sitting Balance and Reactions Static Sitting Balance Ability Good Dynamic Sitting Balance Ability Fair Standing Balance and Reactions Static Standing Balance Ability Fair M8 OT- IP Objective Assessments Start: 01/29/21 12:13 Freq: Status: Active Protocol: Document 01/29/21 10:53 [facility] (Rec: 01/29/21 12:34 [facility] [id number]) OT Gross Range of Motion Upper Extremity Range of Motion Assessment Within Functional Limits OT Strength Upper Extremity Strength Assessment Within Functional Limits M9 OT- IP Assessment and Plan Start: 01/29/21 12:13 Freq: Status: Active Protocol: Document 01/30/21 09:21 [facility] (Rec: 01/30/21 09:30 [facility] [id number]) OT Summary Assessment and Plan Potential Rehabilitation Potential Good Analytic Complexity at Evaluation Moderate Summary OT Impairments Pain,Balance,Functional Cognition,Functional Mobility, Grooming,Dressing,Toileting, Bathing,Toilet Transfers, Shower Transfers,Activity Tolerance Progress Towards Goals Progressing Toward Goals Assessment Summary Pt on 95% for RA . Educated on deep breathing and nursing to get him a spirometer to continue to help with his breathing needs. Pt states good understanding for energy conservation information. Pt too tired to shower at this time. Pt looking to go home when medically stable. Goals Grooming Goal Independent Dressing Goal Minimal Assistance Toileting Goal Independent Bathing Goal Independent Toilet Transfer Goal Independent Shower Transfer Goal Independent Days to Meet Goals 5 Frequency of Treatment Frequency Of Treatment Once a Day Treatment Plan OT Treatment Plan ADL Training,Functional Cognition Training,Functional Mobility,Patient/Family Education,Discharge Planning Other Treatment Recommendations and Next shower Treatment Focus Discharge Recommendations OT Discharge Recommendations Home with Assistance Home Equipment Needs shower chair Transportation Needs at Discharge Private Vehicle
--- NOTE | 2021-01-30 10:22 | CM.DPC ---
Addendum entered by LINDA Garnett 01/30/21 14:43: ADD: SW spoke to Nessa MCRAE at [facility] and she states she does not see a skillable need but sent it for review by Physician who is asking for additional PT/OT notes but currently does not see a skillable need for SNF either. PENELOPE updated Dtr Nessa and she is understanding and aware that [facility] continuing to review but not sounding like pt will likely get auth'd. RN and pt called Dtr in room and Dtr agreeable to transport pt home with [facility] today and will continue working on plan of in home caregivers or possibly begin really considering Assisted Living as they feel pt does well at SNF and may just need that type of environment for success. PENELOPE called and updated [facility] and she will update their reviewing physician. PENELOPE faxed d/c summary and Resume orders to [facility]. BF Original Note: DCP Discharge: Per MD, pt is medically stable to d/c home today after final lasik dose. Per RT, pt ambulating well and slightly de-sats to 88 during exertion but quickly stabilizes and will assess again after lasik. Per PT/OT, recommending safe d/c home with HH. Pt has been ambulating hallway well with TEACHER PRIVATE. PENELOPE received a call from pt's Dtr Nessa inquiring about an update on why pt is not going to SNF at d/c. PENELOPE discussed that pt has [facility] and would need auth for SNF and based on pt's mobility and lack of nursing needs and primarily based on the concerns Nessa stated (incontinence, difficulty getting out of a chair by himself, and needing someone to motivate him) is considered long term care and [place] does not approve SNF for long term care. PENELOPE discussed that pt likely will continue to need increased care and may not necessarily improve with some of these concerns and reiterated the previous discussion with PENELOPE from yesterday about the importance of calling the resources given for in-home caregivers and other home resources. Dtr also confirms that pt is not really agreeable to SNF either but PENELOPE was willing to contact [facility] to confirm SNF not auth'd based on pt's needs. PENELOPE called [facility] Nessa [phone] with update on pt and faxed clinicals to review to confirm if SNF approved. Pt with back up plan of home with Dtr and [facility], resume orders already placed. Plan: SW to follow closely for plan of d/c home with [facility] while awaiting [facility] determination. LINDA Garnett
--- NOTE | 2021-01-30 10:47 | PT.IPTN ---
Current Diagnoses Sepsis, unspecified organism (01/27/21) Physical Therapy Treatment Note M2 PT-IP Current Condition Start: 01/28/21 15:17 Freq: NEEDED Status: Active Protocol: Document 01/29/21 11:09 AW (Rec: 01/29/21 12:58 AW [id number]) Physical Therapy Current Condition Current Condition Evaluation Date 01/29/21 Treatment Diagnosis acute respiratory failure, sepsis, difficulty in walking Onset Date 01/27/21 M3 PT-IP Subjective Start: 01/28/21 15:17 Freq: NEEDED Status: Active Protocol: Document 01/30/21 10:47 AB (Rec: 01/30/21 12:52 AB [id number]) Subjective Physical Therapy Visit Type Type Treatment Note Visit Start Time 10:47 Visit Stop Time 11:10 Total Visit Minutes 23 Number of CHEMISTRY ACCOUNT MANAGER Visits 0 Physical Therapy Visit Comments Patient Comments pt is agreeable to do PT Therapy Pain Assessment Pain Present Pain Present Denied Pain M4 PT-IP Mobility and Gait Start: 01/28/21 15:17 Freq: NEEDED Status: Active Protocol: Document 01/30/21 10:47 AB (Rec: 01/30/21 12:52 AB [id number]) PT-Transfer Assessment Sit to and From Stand Sit to and from Stand Standby Assistance Equipment Transfer Assistive Device Gait Belt,Straight Cane Orthotic/Prosthetic Devices or Brace: No Transfers Transfer Destination Chair Transfer Technique Stand Step Pivot Transfer Ability Level of Assist Standby Assistance,1 Person Assistance,Use of Upper Extremities Comments Mobility Comments pt sitting on chair and agreed to do PT. completed sit to stand SBA and ambulated in the hallway using SPC SBA ~ 125ft . pt sat on EOB initially as pt want to see his O2 sat. O2 sat prior to ambulation: 96% and after ambulation: 92%. pt agreed to sit on chair and completed step transfer without AD SBA. positioned pt on chair. call light and table placed within reach. chair alarm set up. Gait Assessment Gait Gait Assistance Required: Standby Assistance Distance (Feet) 125 Able to Maintain Weight Bearing Status Yes During Gait Assistive Devices Assistive Device Gait Belt,Straight Cane Orthotic/Prosthetic Devices or Brace: No Gait Deviations General Gait Pattern Antalgic,Decreased Stride Length,Decreased Feet Clearance Factors Limiting Gait Function Factors Limiting Gait Function Decreased Activity Tolerance, Decreased Strength,Limited Range of Motion,Poor Balance M5 PT-IP Objective Assessments Start: 01/28/21 15:17 Freq: NEEDED Status: Active Protocol: Document 01/29/21 11:09 AW (Rec: 01/29/21 12:58 AW [id number]) Orientation Orientation/Cognition Level of Alertness Alert Orientation Name,Day of Week,Place, Situation Language Function Ability Hard of Hearing Safety Awareness Decreased Safety Awareness Memory Description Short Term Impaired Gross Range of Motion Lower Extremity ROM Assessment Bilaterally Impaired Impairments Lacking TKE bilaterally. Active dorsiflexion only to neutral. Painful left knee flexion past 80 degrees. Strength Lower Extremity Strength Assessment Bilaterally Impaired Hip 4-/5 Knee R 4/5; L 3+/5 Ankle 4/5 Sensation Assessment Sensation Gross Sensation WNL Muscle Tone Muscle Tone WNL Yes Other Assessments Other Other Assessments See notes above for SpO2 monitoring at rest and during activity, on and off O2. M6 PT-IP Treatment Start: 01/28/21 15:17 Freq: NEEDED Status: Active Protocol: Document 01/30/21 10:47 AB (Rec: 01/30/21 12:52 AB [id number]) Physical Therapy Treatment Education Education Provided Safety M7 PT-IP Assessment and Plan Start: 01/28/21 15:17 Freq: NEEDED Status: Active Protocol: Document 01/30/21 10:47 AB (Rec: 01/30/21 12:52 AB [id number]) PT Summary Assessment and Plan Potential Rehabilitation Potential Good Summary Impairments Pain,ROM,Strength,Balance, Coordination,Sensation,Tone, Cognition,Bed Mobility, Transfers,Gait,Activity Tolerance Progress Towards Goals Slow Progress due to Activity Tolerance Assessment Summary pt requiring SBA with mobility using SPC. pt plans to go home with family to assist and will benefit from HHPT. Goals Transfer Goal Independent,Cane Gait Goal Independent,Cane Gait Distance 150 Other Goals - up/down 4 steps with B rails CGA Days to Meet Goals 5 Frequency of Treatment Frequency Of Treatment Once a Day Treatment Plan Physical Therapy Treatment Plan Bed Mobility Training,Transfer Training,Gait Training, Therapeutic Exercise,Balance Retraining,Discharge Planning, Hot or Cold Pack,Neuromuscular Re-ed,Coordination Retraining Precautions Other Precautions falls Recommendations To Nursing Amount of Assist Needed 1 Person Assist Discharge Recommendations PT Discharge Recommendations Home with Assistance,Home Health Transportation Needs at Discharge Private Vehicle
[2021-01-30 12:00] VITALS: BP 145/70; PULSE 77; RESP 19; TEMP 36.9; O2SAT 95
--- NOTE | 2021-01-30 14:41 | PC.NURSE ---
Patient and daughter Nessa educated about discharge instructions, new medications, diet, activity, ss of infection, ss of stroke and follow up with primary care doctor. Daughter given paper prescriptions to fill at the pharmacy. Patient and daughter acknowledged all discharge teaching and patient left facility via private vehicle and wheelchair with all belongings.
== END 2021-01-30 14:22 | disposition home health service (06) | DRG 871 ==
LOC: ED 16:35 → AC 16:57 → ICU 17:23 → AC 01-28 11:06
PROVIDERS: Nurse Practitioner Family; Admitting Provider Internal Medicine; Emergency Provider Emergency Medicine; Family Provider Student in an Organized Health Care Education/Training Program; PCP Student in an Organized Health Care Education/Training Program; Referring Provider Emergency Medicine; Visit Provider Internal Medicine
DX: A41.9 Sepsis, unspecified organism (principal); J96.01 Acute respiratory failure with hypoxia; J18.9 Pneumonia, unspecified organism; E87.1 Hypo-osmolality and hyponatremia; R65.20 Severe sepsis without septic shock; E87.70 Fluid overload, unspecified; E16.2 Hypoglycemia, unspecified; M1A.9XX0 Chronic gout, unspecified, without tophus (tophi); I10 Essential (primary) hypertension; E03.9 Hypothyroidism, unspecified; E78.5 Hyperlipidemia, unspecified; G47.33 Obstructive sleep apnea (adult) (pediatric); N40.0 Benign prostatic hyperplasia without lower urinary tract symptoms; Z20.822 Contact with and (suspected) exposure to COVID-19; Z87.891 Personal history of nicotine dependence; Z66 Do not resuscitate
CPT/HCPCS: 36415; 36600; 71045; 71275; 80048; 80053; 81001; 82550; 82805; 82962; 83605; 83735; 83880; 84145; 84484; 85025; 85027; 87040; 87633; 87635; 87797; 93005; 94762; 96361; 96365; 97116; 97162; 97166; 97530; 97535; 99284; C9803; J1650; J1940; J2543; J3475; Q9967

== ENCOUNTER → 2021-02-08 16:14 | Outpatient (CLI) | payer OTHER, SELFPAY ==
[2021-01-29 14:16] VITALS: BMI 30.6
[2021-02-08 17:57] LABS: Add Manual Diff / Slide Review NO; Basophils Absolute Auto 100 /uL (0-100); Eosinophils Absolute Auto 200 /uL (0-450); Eosinophils Percent Auto 2.2 % (2-4); Hematocrit 35.3 % (41-53); Hemoglobin 11.2 g/dL (13.5-17.5); Lymphocytes Absolute Auto 1200 /uL (1100-4500); Lymphocytes Percent Auto 15.7 % (25-40); Mean Corpuscular HGB Conc 31.7 % (30-36); Mean Corpuscular Hemoglobin 25.2 PG (26-34); Mean Corpuscular Volume 79.5 fL (80-100); Monocytes Absolute Auto 700 /uL (0-900); Monocytes Percent Auto 9.9 % (3-14); Neutrophils Absolute Auto 5300 /uL (1500-7000); Neutrophils Percent Auto 71.2 % (50-75); Platelet Count 309 X10^3/uL (150-400); Red Blood Cell Count 4.45 X10^6/uL (4.5-5.9); Red Cell Distribution Width 19.1 % (11.6-14.8); White Blood Cell Count 7.4 X10^3/uL (4.5-11.0)
[2021-02-08 17:58] LABS: Appearance Urine UA CLEAR; Bilirubin Urine UA NEGATIVE (NEGATIVE); Color Urine UA YELLOW; Glucose Urine UA NEGATIVE (Negative); Ketones Urine UA NEGATIVE (NEGATIVE); Leukocyte Esterase Urine UA NEGATIVE (NEGATIVE); Nitrite Urine UA NEGATIVE (Negative); Occult Blood Urine UA 3+ (Negative); Protein Urine UA TRACE (Negative); Specific Gravity Urine UA 1.015 (1.000-1.035); Urobilinogen Urine UA 0.2 E.U./dL (0.2)
[2021-02-08 18:09] LABS: Alanine Aminotransferase 18 IU/L (<50); Albumin 3.7 g/dL (3.5-5.0); Albumin Globulin Ratio 0.8 (1.0-2.8); Alkaline Phosphatase 86 U/L (38-126); Aspartate Aminotransferase 31 IU/L (17-59); Bilirubin Total 0.3 mg/dL (0.2-1.3); Blood Urea Nitrogen 34 mg/dL (9-20); Calcium 10.3 mg/dL (8.4-10.2); Carbon Dioxide 33 mmol/L (22-32); Chloride 99 mmol/L (98-107); Estimated Glomerular Filt Rate > 60.0 mL/min (>60); Globulin 4.7 g/dL (1.7-4.1); Glucose 103 mg/dL (80-110); HEMOLYSIS < 15 (0-50); Potassium 3.8 mmol/L (3.4-5.1); Sodium 139 mmol/L (137-145); Total Protein 8.4 g/dL (6.3-8.2)
[2021-02-08 18:10] LABS: Hemoglobin A1C% w Est Avg Glu 5.8 % (4.0-6.0)
[2021-02-08 18:32] LABS: Bacteria Urine None Seen
[2021-02-08 18:54] LABS: Culture Indicated Urine Cult Not Indicated; RBC Urine 5-10/HPF (0-5/HPF); WBC Urine 0-1/HPF (0-5/HPF)
== END ==
PROVIDERS: Family Provider Student in an Organized Health Care Education/Training Program; PCP Student in an Organized Health Care Education/Training Program; Referring Provider Registered Nurse; Visit Provider Registered Nurse
DX: R53.83 Other fatigue (principal); E16.2 Hypoglycemia, unspecified
CPT/HCPCS: 36415; 80053; 81003; 81015; 83036; 85025

== ENCOUNTER 2021-02-13 14:02 | Inpatient (IN) | payer OTHER, SELFPAY ==
[2021-01-29 14:16] VITALS: BMI 30.6
[2021-02-13] VITALS (16 sets, daily range): BP systolic 113–134; BP diastolic 57–64; PULSE 72–98; RESP 16–35; TEMP 36.3–38.6; O2SAT 91–97; BMI 30.2
--- NOTE | 2021-02-13 14:14 | DI.RAD.S_ITS ---
PROCEDURE: XR CHEST 1V INDICATIONS: suspected sepsis TECHNIQUE: One view of the chest was acquired. COMPARISON: [facility], CT, CT ANGIO CHEST PE PROTOCOL, 01/27/2021, 15:25. [facility], CR, XR CHEST 1V, 01/28/2021, 7:12. [facility], CR, XR CHEST 1V, 01/27/2021, 13:27. FINDINGS: Surgical changes and devices: None. Lungs and pleura: Decreased bilateral patchy airspace opacity. No pleural effusions or pneumothorax. Mediastinum: Mediastinal contours appear normal. Heart size is normal. Bones and chest wall: No suspicious bony lesions. Overlying soft tissues appear unremarkable. IMPRESSION: Decreased bilateral patchy airspace opacity. Dictated by: Broderick Chahal M.D. on 02/13/2021 at 14:30 Approved by: Broderick Chahal M.D. on 02/13/2021 at 14:32
[2021-02-13 14:56] LABS: Add Manual Diff / Slide Review NO; Basophils Absolute Auto 100 /uL (0-100); Basophils Percent Auto 0.6 % (0-2); Eosinophils Absolute Auto 100 /uL (0-450); Eosinophils Percent Auto 0.5 % (2-4); Hemoglobin 10.8 g/dL (13.5-17.5); Lymphocytes Absolute Auto 800 /uL (1100-4500); Lymphocytes Percent Auto 6.7 % (25-40); Mean Corpuscular HGB Conc 31.9 % (30-36); Mean Corpuscular Hemoglobin 25.1 PG (26-34); Mean Corpuscular Volume 78.8 fL (80-100); Monocytes Absolute Auto 1000 /uL (0-900); Monocytes Percent Auto 8.3 % (3-14); Neutrophils Absolute Auto 10500 /uL (1500-7000); Neutrophils Percent Auto 83.9 % (50-75); Platelet Count 279 X10^3/uL (150-400); Red Blood Cell Count 4.32 X10^6/uL (4.5-5.9); Red Cell Distribution Width 19.1 % (11.6-14.8); White Blood Cell Count 12.6 X10^3/uL (4.5-11.0)
--- NOTE | 2021-02-13 15:05 | ED.GENADULT ---
HPI - General Adult General Chief complaint: Weakness Stated complaint: Weakness Time Seen by Provider: 02/13/21 14:10 Source: EMS Mode of arrival: EMS History of Present Illness HPI narrative: 85-year-old gentleman presents with a chief complaint of weakness. Medical history is significant for hypertension, long history of smoking no longer smoking. Prior stroke prior GI bleed due to NSAID induced ulcers, hypothyroidism with a history of gout and osteoarthritis admitted to the hospital for similar complaints on January 27. At that point he was noted to have bilateral patchy alveolar infiltrates suggestive of an atypical or viral pneumonia without evidence of PE or COVID. He was treated for 3 days in the hospital seem to be improving with antibiotics oxygen and diuresis and was discharged home with 5 additional days of Levaquin. He was seen by his primary care physician on February 08 noting that the pneumonia symptoms had resolved and complaining of knee pain ongoing for 6 months and requesting orthopedic referral. His daughter notes that he seems to be having 2 week cycles of weakness and getting worsened and a. Worry seems to do well. Approximately 48 hours ago he began having increasing weakness she noted that he was having some difficulty with his right hand like not being able to hold onto his coffee cup and not being able to fully grasp his cellphone. The at that same time significantly increasing weakness and fatigue to the point where he is unable to get out of bed. She does note that his speech has been a bit more difficult to understand over that same time frame. There is not a note of fevers, chest pain, palpitations, cough however he is febrile in the emergency department. No complaints of vomiting or diarrhea. Related Data Home Medications Medication Instructions Recorded Confirmed cholecalciferol (vitamin D3) 50 mcg PO DAILY 11/25/20 02/08/21 Adult Probiotic 3,000 mmu cells PO DAILY 01/01/21 02/08/21 acetaminophen 650 mg PO Q4H PRN 01/01/21 02/08/21 allopurinol 100 mg PO DAILY 01/01/21 02/08/21 atenolol 50 mg PO BID 01/01/21 02/08/21 famotidine 20 mg PO BID 01/01/21 02/08/21 tamsulosin [Flomax] 0.4 mg PO BEDTIME 01/01/21 02/08/21 Previous Rx's Medication Instructions Recorded hydrocodone-acetaminophen 1 tab PO Q4HR PRN #10 tab 01/03/21 amlodipine 10 mg tablet See Rx Instructions .ROUTE 01/12/21 .COMPLEX #90 tablet duloxetine 20 mg capsule,delayed 20 mg PO DAILY #90 cap 01/12/21 release pantoprazole 40 mg tablet,delayed 40 mg PO BID #90 tab 01/12/21 release trazodone 100 mg tablet 100 mg PO BEDTIME #180 tab 01/12/21 furosemide [Lasix] 20 mg PO DAILY #30 tab 01/30/21 levofloxacin 750 mg PO DAILY #5 tab 01/30/21 glucometer and test strips #1 ea 02/08/21 Allergies Allergy/AdvReac Type Severity Reaction Status Date / Time No Known Drug Allergies Allergy Verified 02/13/21 14:19 Review of Systems Review of Systems Narrative: Remainder of complete review of systems is otherwise unremarkable except for that included in the HPI. Patient History Medical History Acquired hypothyroidism (09/16/16) Actinic keratosis Basal cell carcinoma 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) Bilateral knee pain Colon polyps Depression (06/29/15) Erectile dysfunction (02/12/16) Essential hypertension (06/29/15) Gout Hemorrhoids Hyperlipemia Hyperthyroidism Insomnia Obstructive sleep apnea Osteoarthritis Primary insomnia (09/16/16) Squamous cell carcinoma Surgical History History of ectropion repair (10/2017) Hx of surgical procedure Family History Family/Other Unknown family medical history Social History household members: family Smoking Status: Former smoker Smoking Status: Former smoker tobacco type: cigarettes alcohol intake frequency: 0-2 drinks per day Alcohol type: hard liquor Substance Use Type: does not use Exam Narrative Exam Narrative: General: Disheveled, fatigued, a acutely ill appearing HEENT: Dry mucous membranes, normal sclera with reactive pupils, Neck: No JVD, supple Respiratory: Lungs are clear to auscultation, no wheezing no rales no rhonchi. Full and symmetrical air movement Cardiac: Regular rate and rhythm no murmurs no bruits Abdomen: Soft, nontender, good bowel tones, no flank pain Skin: Warm and dry, no rashes, multiple dry patches and superficial skin cancers appreciated over sun-exposed areas Neurologic: Mildly dysarthric speech, tongue deviates slightly to the right when extended, mild right upper extremity weakness, lower extremities difficult to examine due to his chronic bilateral knee pain. He describes no sensory deficits. Extremities: No trauma, well perfused, no significant lower extremity edema Psych: Cooperative, appropriate insight and affect when aroused from sleep Initial Vital Signs Initial Vital Signs: Vital Signs Temperature 97.4 F L 02/13/21 14:07 Scores NIH Stroke Scale Level of Conciousness: Alert, keenly responsive Ask month/age: Answers both questions correctly. Open/close eyes, close hand: Performs both tasks correctly Best gaze horizontal: Normal Visual zeng: No visual loss Facial palsy: Normal symetrical movement Left arm drift: No drift for full 10 sec Right arm drift: No drift for full 10 sec Left leg drift: No drift for full 5 sec Right leg drift: No drift for full 5 sec Limb ataxia: Absent (cant test in LE due to knee issues) Sensory on face/arms/legs: Normal, no sensory loss Best language: Mild to moderate, slurs some words Dysarthria: Mild to mod,some slurring Extinction or inattention: No abnormality Total NIH Stroke scale score: 2 Course Orders Ordered: ED Orders 02/13/21 14:14 XR chest 1V Stat EKG-12 Lead Stat RT Consult Eval and Treat Now 02/13/21 14:45 Complete Blood Count AUTO DIFF Stat Comprehensive Metabolic Panel Stat Lactate (Lactic Acid) Stat Lipase Stat NT-proBNP (BNP-Adult 18+) Stat Procalcitonin Stat Troponin & CK Cardiac Panel Stat 02/13/21 15:24 CT head/brain wo con Stat 02/13/21 16:00 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) Stat 02/13/21 16:28 Urine Microscopic Stat 02/13/21 16:39 Blood Culture Stat Discontinued Medications Piperacillin Sod/Tazobactam (Sod 4.5 gm/ Sodium Chloride) 100 mls @ 200 mls/hr IV NOW ONE Stop: 02/13/21 15:25 Last Infusion: 02/13/21 16:50 Dose: 0 mls/hr Documented by: Admin: 02/13/21 15:35 Dose: 200 mls/hr Documented by: DAYLIN Sodium Chloride (Normal Saline 0.9%) 1,000 mls @ 1,000 mls/hr IV BOLUS ONE Stop: 02/13/21 16:23 Last Infusion: 02/13/21 18:41 Dose: 0 mls/hr Documented by: Admin: 02/13/21 15:36 Dose: 1,000 mls/hr Documented by: DAYLIN Vital Signs Vital signs: Vital Signs - 8 hr 02/13/21 14:07 02/13/21 14:19 02/13/21 16:51 Temperature 97.4 F L 101.4 F H Pulse Rate 78 77 Respiratory Rate 22 24 Blood Pressure 134/61 124/60 Pulse Oximetry 92 95 02/13/21 17:46 02/13/21 18:00 02/13/21 18:30 Temperature Pulse Rate 77 76 77 Respiratory Rate 35 H 34 H Blood Pressure Pulse Oximetry 91 92 93 Medical Decision Making Medical Records Medical records reviewed: Yes I reviewed the patient's medical records. Lab Data Lab results reviewed: Yes I reviewed the patient's lab results. Result diagrams: 02/13/21 14:45 02/13/21 14:45 Labs: Lab Results 02/13/21 02/13/21 02/13/21 Range/Units 14:45 14:45 14:45 WBC 12.6 H (4.5-11.0) X10^3/uL RBC 4.32 L (4.5-5.9) X10^6/uL Hgb 10.8 L (13.5-17.5) g/dL Hct 34.0 L (41-53) % MCV 78.8 L (80-100) fL MCH 25.1 L (26-34) PG MCHC 31.9 (30-36) % RDW 19.1 H (11.6-14.8) % Plt Count 279 (150-400) X10^3/uL Neut % (Auto) 83.9 H (50-75) % Lymph % (Auto) 6.7 L (25-40) % [place] % (Auto) 8.3 (3-14) % Eos % (Auto) 0.5 L (2-4) % Baso % (Auto) 0.6 (0-2) % Neut # (Auto) 16860 H (9791-2517) /uL Lymph # (Auto) 800 L (4862-8173) /uL [place] # (Auto) 1000 H (0-900) /uL Eos # (Auto) 100 (0-450) /uL Baso # (Auto) 100 (0-100) /uL Sodium 137 (137-145) mmol/L Potassium 4.1 (3.4-5.1) mmol/L Chloride 98 (98-107) mmol/L Carbon Dioxide 33 H (22-32) mmol/L BUN 37 H (9-20) mg/dL Creatinine 1.07 (0.66-1.25) mg/dL Estimated GFR > 60.0 (>60) mL/min BUN/Creatinine Ratio 34.6 H (6-22) Glucose 134 H (80-110) mg/dL Lactate 1.4 (0.7-2.1) mmol/L Calcium 10.0 (8.4-10.2) mg/dL Total Bilirubin 0.3 (0.2-1.3) mg/dL AST 24 (17-59) IU/L ALT 14 (<50) IU/L Alkaline Phosphatase 97 (38-126) U/L Total Creatine Kinase (55-170) U/L CK-MB (CK-2) CK-MB (CK-2) Rel Index Troponin I (0.01-0.034) ng/mL NT-Pro-B Natriuret Pep (<450) pg/mL Total Protein 8.2 (6.3-8.2) g/dL Albumin 3.6 (3.5-5.0) g/dL Globulin 4.6 H (1.7-4.1) g/dL Albumin/Globulin Ratio 0.8 L (1.0-2.8) Lipase 119 (23-300) U/L Procalcitonin 0.11 (<0.5) ng/mL 02/13/21 Range/Units 14:45 WBC (4.5-11.0) X10^3/uL RBC (4.5-5.9) X10^6/uL Hgb (13.5-17.5) g/dL Hct (41-53) % MCV (80-100) fL MCH (26-34) PG MCHC (30-36) % RDW (11.6-14.8) % Plt Count (150-400) X10^3/uL Neut % (Auto) (50-75) % Lymph % (Auto) (25-40) % [place] % (Auto) (3-14) % Eos % (Auto) (2-4) % Baso % (Auto) (0-2) % Neut # (Auto) (4431-5036) /uL Lymph # (Auto) (7803-9445) /uL [place] # (Auto) (0-900) /uL Eos # (Auto) (0-450) /uL Baso # (Auto) (0-100) /uL Sodium (137-145) mmol/L Potassium (3.4-5.1) mmol/L Chloride (98-107) mmol/L Carbon Dioxide (22-32) mmol/L BUN (9-20) mg/dL Creatinine (0.66-1.25) mg/dL Estimated GFR (>60) mL/min BUN/Creatinine Ratio (6-22) Glucose (80-110) mg/dL Lactate (0.7-2.1) mmol/L Calcium (8.4-10.2) mg/dL Total Bilirubin (0.2-1.3) mg/dL AST (17-59) IU/L ALT (<50) IU/L Alkaline Phosphatase (38-126) U/L Total Creatine Kinase < 20 L (55-170) U/L CK-MB (CK-2) TNP CK-MB (CK-2) Rel Index TNP Troponin I < 0.012 (0.01-0.034) ng/mL NT-Pro-B Natriuret Pep 628 H (<450) pg/mL Total Protein (6.3-8.2) g/dL Albumin (3.5-5.0) g/dL Globulin (1.7-4.1) g/dL Albumin/Globulin Ratio (1.0-2.8) Lipase (23-300) U/L Procalcitonin (<0.5) ng/mL Urine Dip Bedside Urine Glucose Negative Bedside Urine Bilirubin - Negative Bedside Urine Ketone - Negative Urine Specific [place] 1.020 Bedside Urine Occult Blood +++ Bedside Urine pH 6.0 Bedside Urine Protein + 30 Bedside Urine Urobilinogen - Negative Bedside Urine Nitrite - Negative Bedside Urine Leukocytes - Negative Esterase Point of care testing: Urine Dip Bedside Urine Glucose Negative Bedside Urine Bilirubin - Negative Bedside Urine Ketone - Negative Urine Specific [place] 1.020 Bedside Urine Occult Blood +++ Bedside Urine pH 6.0 Bedside Urine Protein + 30 Bedside Urine Urobilinogen - Negative Bedside Urine Nitrite - Negative Bedside Urine Leukocytes - Negative Esterase Imaging Data Chest x-ray: Radiologist's Impression: FINDINGS: Surgical changes and devices: None. Lungs and pleura: Decreased bilateral patchy airspace opacity. No pleural effusions or pneumothorax. Mediastinum: Mediastinal contours appear normal. Heart size is normal. Bones and chest wall: No suspicious bony lesions. Overlying soft tissues appear unremarkable. IMPRESSION: Decreased bilateral patchy airspace opacity. Dictated by: Broderick Chahal M.D. on 02/13/2021 at 14:30 CT scan - head: Radiologist's Impression: FINDINGS: Image quality: There are motion artifacts at the skull base. CSF spaces: Basal cisterns are patent. No extra-axial fluid collections. The ventricles are symmetric in size and shape. Brain: Old right frontal infarct with encephalomalacia. There is an old infarct in the right basal ganglia. No intracranial bleeds or masses. There is cerebral volume loss for age, with resultant ventricular and sulcal prominence. There are periventricular and deep white matter chronic small vessel ischemic changes. There is intracranial internal carotid artery atherosclerosis. Skull and face: Calvarium and visualized facial bones appear intact, without suspicious lesions. Sinuses: Visualized sinuses and mastoids are clear. IMPRESSION: 1. No acute intracranial abnormalities. 2. 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 3. Cerebral volume loss and chronic microvascular ischemic changes. Dictated by: Cat Malik M.D. on 02/13/2021 at 15:47 ECG Data Attestation: I personally reviewed and interpreted this ECG as follows: MDM Narrative Medical decision making narrative: 85-year-old gentleman with multiple medical problems and worsening and more frequent progression of same. Today has increasing weakness with concern for stroke with with dysarthria and right-sided weakness and exacerbation of his chronic weakness making it almost impossible for him to get out of bed at this point. He does have mild fever and recently completed a course of Levaquin for pneumonia with seemingly complete resolution of symptoms by Debra 15th. At this point he does not appear to be septic will go ahead and start Zosyn given his recent hospitalization, persistent findings (although somewhat improved) on his chest x-ray. Still need urine. Will be sent for CT scan of the head and anticipate need for hospitalization. CT scan shows old infarcts but no new infarct. There is no indication of overt infection at this time. And COVID study are currently still pending. Based on his clinical exam with the right hand weakness and the dysarthria as well as the weakness all starting 48-72 hours ago I believe he has had a stroke does need to be admitted for an MRI and may need help with disposition home as he is too weak to go home to independent living. Because the stroke is suspected and not confirmed with an NIH score of 1 only and is between 48 and 72 hours old, he is not a tPA candidate Care is reviewed with the hospitalist this evening who will except admission. Discharge Plan Departure Patient Disposition: Admitted As Inpatient Clinical Impression: Stroke Qualifiers: CVA mechanism: unspecified Qualified Code(s): I63.9 - Cerebral infarction, unspecified
[2021-02-13 15:09] LABS: Alanine Aminotransferase 14 IU/L (<50); Albumin 3.6 g/dL (3.5-5.0); Albumin Globulin Ratio 0.8 (1.0-2.8); Alkaline Phosphatase 97 U/L (38-126); Aspartate Aminotransferase 24 IU/L (17-59); BUN Creatinine Ratio 34.6 (6-22); Bilirubin Total 0.3 mg/dL (0.2-1.3); Blood Urea Nitrogen 37 mg/dL (9-20); Carbon Dioxide 33 mmol/L (22-32); Chloride 98 mmol/L (98-107); Creatine Kinase < 20 U/L (55-170); Estimated Glomerular Filt Rate > 60.0 mL/min (>60); Globulin 4.6 g/dL (1.7-4.1); Glucose 134 mg/dL (80-110); HEMOLYSIS < 15 (0-50); Lipase 119 U/L (23-300); Potassium 4.1 mmol/L (3.4-5.1); Sodium 137 mmol/L (137-145); Total Protein 8.2 g/dL (6.3-8.2)
[2021-02-13 15:10] LABS: Lactate (Lactic Acid) 1.4 mmol/L (0.7-2.1)
--- NOTE | 2021-02-13 15:24 | DI.CT.S_ITS ---
PROCEDURE: CT HEAD/BRAIN WO CON INDICATIONS: Right side weak x48hrs suspect stroke TECHNIQUE: Noncontrast 4.5 mm thick angled axial sections acquired from the foramen magnum to the vertex, with coronal and sagittal reformats. For radiation dose reduction, the following was used: automated exposure control, adjustment of mA and/or kV according to patient size. COMPARISON: [facility], MR, MR BRAIN WITHOUT CONTRAST, 10/27/2020, 15:28. [facility], CT, CT HEAD/BRAIN WO CON, 10/23/2020, 19:39. FINDINGS: Image quality: There are motion artifacts at the skull base. CSF spaces: Basal cisterns are patent. No extra-axial fluid collections. The ventricles are symmetric in size and shape. Brain: Old right frontal infarct with encephalomalacia. There is an old infarct in the right basal ganglia. No intracranial bleeds or masses. There is cerebral volume loss for age, with resultant ventricular and sulcal prominence. There are periventricular and deep white matter chronic small vessel ischemic changes. There is intracranial internal carotid artery atherosclerosis. Skull and face: Calvarium and visualized facial bones appear intact, without suspicious lesions. Sinuses: Visualized sinuses and mastoids are clear. IMPRESSION: 1. No acute intracranial abnormalities. 2. 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 3. Cerebral volume loss and chronic microvascular ischemic changes. Dictated by: Cat Malik M.D. on 02/13/2021 at 15:47 Approved by: Cat Malik M.D. on 02/13/2021 at 15:51
[2021-02-13 15:26] LABS: NT-proBNP (BNP-Adult 18+) 628 pg/mL (<450); Troponin I < 0.012 ng/mL (0.01-0.034)
[2021-02-13 15:31] LABS: Procalcitonin 0.11 ng/mL (<0.5)
[2021-02-13] MEDS: PIPERACILLIN/TAZO 4.5 GM in SODIUM CHLORIDE 0.9% 100 ML 200 ML IV (15:35)
[2021-02-13] MEDS: SODIUM CHLORIDE 0.9% 1,000 ML 1000 ML IV (15:36)
[2021-02-13 19:02] LABS: Bacteria Urine None Seen; WBC Urine None Seen (0-5/HPF)
[2021-02-13 19:16] LABS: Culture Indicated Urine Cult Not Indicated; RBC Urine 5-10/HPF (0-5/HPF)
[2021-02-13 20:46] LABS: COVID19 - ADMIT (NP swab/PCR) Negative (Negative)
[2021-02-13 21:16] LABS: Magnesium 2.1 mg/dL (1.6-2.3)
[2021-02-13] MEDS: PANTOPRAZOLE DR 40 MG TABLET PO (23:11)
[2021-02-13] MEDS: HYDROCODONE/ACET 5/325 TABLET 1 TAB PO (23:11)
[2021-02-13] MEDS: TAMSULOSIN 0.4 MG CAPSULE PO (23:11)
[2021-02-13] MEDS: TRAZODONE 100 MG TABLET PO (23:12)
[2021-02-13] MEDS: SODIUM CHLORIDE 0.9% 250 ML 21 ML IV (23:45)
[2021-02-13] MEDS: cefTRIAXone 1,000 MG in SODIUM CHLORIDE 0.9% 100 ML 200 ML IV (23:46)
[2021-02-14] VITALS (8 sets, daily range): BP systolic 111–140; BP diastolic 54–61; PULSE 75–83; RESP 16–22; TEMP 36.3–37; O2SAT 87–97
[2021-02-14 00:06] LABS: Hematocrit 31.9 % (41-53)
[2021-02-14] MEDS: SODIUM CHLORIDE 0.9% FLUSH 10 ML IV ×2 (00:34→09:04)
--- NOTE | 2021-02-14 03:17 | P.HP_ITS ---
History of Present Illness History of Present Illness Date Patient Seen: 02/13/21 Time Patient Seen: 22:00 Chief complaint: Weakness Narrative: Klever George is an 85-year-old male with a history of a CVA, essential hypertension, GERD, BPH, and mild dementia was sent over here via his daughter who lives close to him due to suspicion for having had a stroke. She states that this past Friday he seemed to be very lethargic and quite weak. She states that he sat in his walker after a lot of coaxing and then went to sit in a chair and was unable to get back. She states that he has been taking a long time to wake up he has always exhausted and noticed that he was also holding his coffee cup weirdly. Not able to actually hold it. She stated that she thought his speech was garbled. Today she was supposed to take him for a doctor's appointment at 2:30 a.m. and when he went to go get ready he did seem to be able to move much so she called 911 and had him brought here. In the emergency department they stated he had some dysarthria and they believe he had a CVA 2-[address] of the head ordered in the ED indicated ?Old right frontal infarct and old right basal ganglia lacunar infarct. Chest x-ray also done indicated patchy opacities bilaterally. Patient is afebrile, blood pressure 124/58, heart rate 82, respiratory rate 16, oxygen saturation of 97% on 2 L, he weighs 90.5 kg with a BMI of 30.2. WBC is 12.6, RBC 4.32, hemoglobin 10, hematocrit 31.9, platelet count 279, add a mildly elevated bicarb of 33 a and a BUN of 37, glucose was 13 4, proBNP was 628, UA culture was not indicated, and COVID-19 PCR was negative. ED NIH score was 2. He was initiated on IV pipercillin tazobactam in the ED. Of note, the patient was hospitalized at [facility] in October of this year for an upper GI bleed. He underwent endoscopy and was found to have a large gastric erosion with a large clot presumed from use of nonsteroidal anti-inflammatory use. Patient History Medical History Acquired hypothyroidism (09/16/16) Actinic keratosis Basal cell carcinoma 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) Bilateral knee pain Colon polyps CVA (cerebral vascular accident) Depression (06/29/15) Erectile dysfunction (02/12/16) Essential hypertension (06/29/15) Gout Hemorrhoids Hyperlipemia Hyperthyroidism Insomnia Obstructive sleep apnea Osteoarthritis Primary insomnia (09/16/16) Squamous cell carcinoma Surgical History History of ectropion repair (10/2017) Hx of surgical procedure Family & Social History Family History Family/Other Unknown family medical history Social History: household members family Prior Living Arrangements House Safety & Behavioral: Feels Safe in Current Yes Environment Been Physically Hurt or No Threatened By a Person Suicidal Ideation Description None Suicide Plan Description No Plan Tobacco & Substance use: Smoking Status Former smoker quit 11/12 alcohol intake frequency 2 drinks of vodka per day Substance Use Type does not use Meds Home Medications and Allergies Home Medications Medication Instructions Recorded Confirmed Type Adult Probiotic 3,000 mmu cells PO DAILY 01/01/21 02/13/21 History acetaminophen 650 mg PO Q4H PRN 01/01/21 02/13/21 History allopurinol 100 mg PO DAILY 01/01/21 02/13/21 History atenolol 50 mg PO BID 01/01/21 02/13/21 History famotidine 20 mg PO BID 01/01/21 02/08/21 History tamsulosin [Flomax] 0.4 mg PO BEDTIME 01/01/21 02/13/21 History hydrocodone-acetaminophen 1 tab PO Q4HR PRN #10 tab 01/03/21 02/13/21 Rx amlodipine 10 mg tablet See Rx Instructions .ROUTE 01/12/21 02/13/21 Rx .COMPLEX #90 tablet duloxetine 20 mg capsule,delayed 20 mg PO DAILY #90 cap 01/12/21 02/13/21 Rx release pantoprazole 40 mg tablet,delayed 40 mg PO BID #90 tab 01/12/21 02/08/21 Rx release trazodone 100 mg tablet 100 mg PO BEDTIME #180 tab 01/12/21 02/13/21 Rx furosemide [Lasix] 20 mg PO DAILY #30 tab 01/30/21 02/13/21 Rx levofloxacin 750 mg PO DAILY #5 tab 01/30/21 02/13/21 Rx glucometer and test strips #1 ea 02/08/21 02/08/21 Rx cholecalciferol (vitamin D3) 50 mcg PO DAILY 02/13/21 02/13/21 History [Vitamin D3] Allergies Allergy/AdvReac Type Severity Reaction Status Date / Time No Known Drug Allergies Allergy Verified 02/13/21 14:19 Review of Systems Review of Systems ROS: Yes unobtainable due to mental status Exam Vital Signs (past 8 hours): - 02/13/21 19:30 02/13/21 20:00 02/13/21 20:29 Temperature Pulse Rate 74 72 75 Respiratory Rate 34 H 34 H 33 H Blood Pressure 113/58 L 113/57 L Pulse Oximetry 94 95 95 02/13/21 20:30 02/13/21 21:00 02/13/21 21:38 Temperature 98.0 F 98.1 F Pulse Rate 77 74 98 H Respiratory Rate 30 H 35 H 22 Blood Pressure 127/60 130/58 L 133/64 Pulse Oximetry 96 93 02/13/21 23:00 02/13/21 23:50 Temperature 98.6 F Pulse Rate 82 Respiratory Rate 16 Blood Pressure 124/58 L Pulse Oximetry 97 97 Oxygen Delivery Method Nasal Cannula Oxygen Flow Rate 2 Narrative Exam Narrative: Gen: Alert, oriented, chronically ill appearing 85 y.o. male, mildy agitated HEENT: normocephalic, atraumatic, conjunctiva clear, sclera non-icteric, oral mucosa pink and moist Neck: supple, full ROM, no JVD, trachea is midline Resp: Lungs w/bilateral crackles in the bases, non-labored breathing CV: RRR, no murmur or rubs Abd: soft, non-tender, normoactive BTs Skin: no lesions or rashes, dry and intact Neuro: Alert and oriented X 3 w/no focal deficits. Poorly understood speech. Extremities: moves all 4 extremities, is ambulatory, negative Pierre?s sign Psyche: slightly uncooperative, daughter states is normal for him Objective Labs Result Diagrams: 02/13/21 23:59 02/13/21 14:45 Labs: Laboratory Results - last 24 hr 02/13/21 02/13/21 02/13/21 14:45 14:45 14:45 WBC 12.6 H RBC 4.32 L Hgb 10.8 L Hct 34.0 L MCV 78.8 L MCH 25.1 L MCHC 31.9 RDW 19.1 H Plt Count 279 Neut % (Auto) 83.9 H Lymph % (Auto) 6.7 L Garden % (Auto) 8.3 Eos % (Auto) 0.5 L Baso % (Auto) 0.6 Neut # (Auto) 98076 H Lymph # (Auto) 800 L Garden # (Auto) 1000 H Eos # (Auto) 100 Baso # (Auto) 100 Sodium 137 Potassium 4.1 Chloride 98 Carbon Dioxide 33 H BUN 37 H Creatinine 1.07 Estimated GFR > 60.0 BUN/Creatinine Ratio 34.6 H Glucose 134 H Hemoglobin A1c Lactate 1.4 Calcium 10.0 Magnesium Total Bilirubin 0.3 AST 24 ALT 14 Alkaline Phosphatase 97 Total Creatine Kinase CK-MB (CK-2) CK-MB (CK-2) Rel Index Troponin I NT-Pro-B Natriuret Pep Total Protein 8.2 Albumin 3.6 Globulin 4.6 H Albumin/Globulin Ratio 0.8 L Lipase 119 Procalcitonin 0.11 Urine RBC Urine WBC Urine Bacteria Ur Culture Indicated? SARS-CoV-2 (PCR) 02/13/21 02/13/21 02/13/21 14:45 14:45 14:45 WBC RBC Hgb Hct MCV MCH MCHC RDW Plt Count Neut % (Auto) Lymph % (Auto) Garden % (Auto) Eos % (Auto) Baso % (Auto) Neut # (Auto) Lymph # (Auto) Garden # (Auto) Eos # (Auto) Baso # (Auto) Sodium Potassium Chloride Carbon Dioxide BUN Creatinine Estimated GFR BUN/Creatinine Ratio Glucose Hemoglobin A1c Cancelled Lactate Calcium Magnesium 2.1 Total Bilirubin AST ALT Alkaline Phosphatase Total Creatine Kinase < 20 L CK-MB (CK-2) TNP CK-MB (CK-2) Rel Index TNP Troponin I < 0.012 NT-Pro-B Natriuret Pep 628 H Total Protein Albumin Globulin Albumin/Globulin Ratio Lipase Procalcitonin Urine RBC Urine WBC Urine Bacteria Ur Culture Indicated? SARS-CoV-2 (PCR) 02/13/21 02/13/21 02/13/21 14:45 16:28 19:51 WBC RBC Hgb Hct MCV MCH MCHC RDW Plt Count Neut % (Auto) Lymph % (Auto) Garden % (Auto) Eos % (Auto) Baso % (Auto) Neut # (Auto) Lymph # (Auto) Garden # (Auto) Eos # (Auto) Baso # (Auto) Sodium Potassium Chloride Carbon Dioxide BUN Creatinine Estimated GFR BUN/Creatinine Ratio Glucose Hemoglobin A1c Lactate Calcium Magnesium Total Bilirubin AST ALT Alkaline Phosphatase Total Creatine Kinase CK-MB (CK-2) CK-MB (CK-2) Rel Index Troponin I NT-Pro-B Natriuret Pep Total Protein Albumin Globulin Albumin/Globulin Ratio Lipase Procalcitonin Cancelled Urine RBC 5-10/hpf H Urine WBC None seen Urine Bacteria None seen Ur Culture Indicated? Cult not indicated SARS-CoV-2 (PCR) Negative 02/13/21 23:59 WBC RBC Hgb 10.0 L Hct 31.9 L MCV MCH MCHC RDW Plt Count Neut % (Auto) Lymph % (Auto) Garden % (Auto) Eos % (Auto) Baso % (Auto) Neut # (Auto) Lymph # (Auto) Garden # (Auto) Eos # (Auto) Baso # (Auto) Sodium Potassium Chloride Carbon Dioxide BUN Creatinine Estimated GFR BUN/Creatinine Ratio Glucose Hemoglobin A1c Lactate Calcium Magnesium Total Bilirubin AST ALT Alkaline Phosphatase Total Creatine Kinase CK-MB (CK-2) CK-MB (CK-2) Rel Index Troponin I NT-Pro-B Natriuret Pep Total Protein Albumin Globulin Albumin/Globulin Ratio Lipase Procalcitonin Urine RBC Urine WBC Urine Bacteria Ur Culture Indicated? SARS-CoV-2 (PCR) Assessment & Plan Assessment & Plan narrative: Klever George will be admitted for further CVA workup and treated for a community acquired pneumonia 1. Suspected TIA versus stroke, acute, present on admission * Cardiac telemetry * NIH score greater than 5 no * NIH scoring and neuro checks q 4 hours * Dual antiplatelet therapy: No, just started on low dose ASA due to recent history of a GI bleed * MR stroke scheduled for 02/14 * Patient fell out of the tPa window for administration 2. Presumed community acquired pneumonia, unknown acuity, present on admission * He will receive IV ceftriaxone 1 gram daily 3. Essential hypertension, chronic and present on admission * Continue home dose of amlodipine 10 mg po daily, atenolol 50 mg po daily 4. GERD, chronic * Continue home dose of pantoprazole 40 mg po bid 5. Depression, chronic * Continue home dose of duloxitine 20 mg po daily and trazodone 100 g po at bedtime 6. BPH, chronic * Continue home doses of tamsulosin 0.4 mg po daily VTE prophylaxis: Wells risk score: 1.5 Bilateral SCDs Consults: none Patient is admitted under inpatient status with expected length of stay greater than 2 midnights due to severity of presenting symptoms, risk of adverse event, and complexity of treatment plan. FEN: saline lock, heart healthy diet, BMP and magnesium in the am. Dispo: May need rehab per family for safe home discharge Code Status: DNR/DNI as discussed with surrogate, Nessa Carbone, his Scores Wells' Criteria for PE Clinical signs and symptoms of DVT: No PE is #1 Dx or equally likely: No Heart rate > 100: No Immobilization at least 3 days or surg in previous 4 weeks: Yes History of PE or DVT: No Hemoptysis: No Malignancy w/Treatment within 6 months or palliative: No Wells' PE Score total: 1.5 Quality Stroke Contraindication Not Initiating IV-Tpa: Not indicated Onset of Symptoms Date: 02/11/21 Symptom Onset Unknown: No Contraindication Antithromb by Day Two: Not indicated Rehab Services Assessed: Rehabilitation therapy VTE Deep Vein Thrombosis/Pulmonary Embolism Present on Admission: No MIPS - Admit I confirm the patient?s Advance Care Plan is present, Code status is documented, Surrogate decision maker is in patient?s record [If Yes, STOP here]: Yes
--- NOTE | 2021-02-14 03:37 | DI.MRI.S_ITS ---
PROCEDURE: MR STROKE Pre- and post-contrast brain MRI, non-contrast brain MR angiogram, pre- and postcontrast neck MR angiogram INDICATIONS: Suspected CVA TECHNIQUE: Brain: Noncontrast axial T1 spin echo, axial T2 fast spin echo, sagittal and axial FLAIR, coronal T2 fast spin echo, axial gradient echo, axial diffusion and ADC through the brain. After the administration of contrast, axial 3D VIBE of the cranial vasculature and brain. Brain MRA: Non-contrast 3-D time of flight MR angiogram, with multiple lzgfyhn-yetvayiri-ypvvcgbhko (MIP) reformats performed. Neck MRA: Axial and sagittal TruFISP through the neck. Coronal dynamic MR angiogram during administration of contrast in the arterial and venous phases, with 3-dimenstional kxjhupt-tylnbvlvv-nfnryolhta (MIP) reformats constructed from subtraction images. COMPARISON: None. FINDINGS: BRAIN: CSF spaces: Ventricles are grossly unremarkable. Basal cisterns are patent. No extra-axial fluid collections. Brain: No midline shift. Enhancing lesion measuring at least 8 x 4 mm seen in the region of the right cerebellar pontine angle and internal auditory canal is noted. Incidentally noted partially empty sella appearance, technically nonspecific finding. Scattered small white matter changes, probably represent chronic microvascular ischemic disease, versus statistically less likely demyelination or other infectious, inflammatory, neurodegenerative etiology, technically nonspecific. No acute ischemia. No abnormal enhancement. Skull and face: Calvarium and facial bones appear intact. Orbits appear normal. Sinuses: Sinuses and mastoids are clear. HEAD MR ANGIOGRAPHY: Anterior circulation: Intracranial internal carotid arteries (ICA): Patent. Anterior cerebral arteries (CHENCHO): Patent. Middle cerebral arteries (MCA): Patent. Other: No aneurysms are seen. Posterior circulation: Visualized portions of the vertebral arteries: Patent. Dominant appearance of the right vertebral artery. Diffuse narrowing of the left V4 segment. Basilar artery: Patent. Posterior cerebral arteries ([place] [employer]LEE[employer] SORTER): Diffuse long segment narrowing of the right P2 segment. Other: No aneurysms are seen. NECK MR ANGIOGRAPHY: Carotid system: Common carotid artery (CCA) origins: Patent. Common carotid arteries (CCA): Patent. Internal carotid arteries (ICA): 50% focal stenosis of the proximal left ICA. No definite focal stenosis of the right ICA. Posterior circulation: Vertebral artery origins: Patent. Extracranial portions of both vertebral arteries: Patent. Basilar artery: Patent. Soft tissues: Visualized neck soft tissues demonstrate no suspicious abnormalities. Bones: No suspicious bony lesions. Cervical spondylosis and facet arthropathy. IMPRESSION: BRAIN MRI: No evidence of acute ischemia. 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 Differential includes meningioma among other possibilities. Diffuse small white matter changes, probably represent chronic microvascular ischemic disease, versus statistically less likely demyelination or other infectious, inflammatory, neurodegenerative etiology, technically nonspecific. BRAIN MR ANGIOGRAM: Diffuse long segment narrowing of the right P2 segment. NECK MR ANGIOGRAM: 50% focal stenosis involving the proximal left ICA. Dominant right vertebral artery. Dictated by: Tho Mccall M.D. on 02/14/2021 at 8:39 Approved by: Tho Mccall M.D. on 02/14/2021 at 9:05
[2021-02-14 05:39] LABS: Add Manual Diff / Slide Review NO; Basophils Absolute Auto 100 /uL (0-100); Basophils Percent Auto 0.5 % (0-2); Eosinophils Absolute Auto 100 /uL (0-450); Eosinophils Percent Auto 0.9 % (2-4); Hematocrit 29.1 % (41-53); Hemoglobin 9.5 g/dL (13.5-17.5); Lymphocytes Absolute Auto 1000 /uL (1100-4500); Lymphocytes Percent Auto 7.9 % (25-40); Mean Corpuscular HGB Conc 32.6 % (30-36); Mean Corpuscular Hemoglobin 25.6 PG (26-34); Mean Corpuscular Volume 78.4 fL (80-100); Monocytes Absolute Auto 1300 /uL (0-900); Monocytes Percent Auto 9.7 % (3-14); Neutrophils Absolute Auto 10700 /uL (1500-7000); Platelet Count 240 X10^3/uL (150-400); Red Blood Cell Count 3.71 X10^6/uL (4.5-5.9); Red Cell Distribution Width 19.4 % (11.6-14.8); White Blood Cell Count 13.2 X10^3/uL (4.5-11.0)
[2021-02-14 05:57] LABS: BUN Creatinine Ratio 36.4 (6-22); Blood Urea Nitrogen 32 mg/dL (9-20); Calcium 8.9 mg/dL (8.4-10.2); Carbon Dioxide 31 mmol/L (22-32); Chloride 102 mmol/L (98-107); Cholesterol 88 mg/dL (140-199); Estimated Glomerular Filt Rate > 60.0 mL/min (>60); Glucose 106 mg/dL (80-110); HDL Cholesterol 26 mg/dL (40-60); HEMOLYSIS < 15 (0-50); LDL Cholesterol Calculated 50 mg/dL (<100); Potassium 4.1 mmol/L (3.4-5.1); Sodium 137 mmol/L (137-145); Triglycerides 61 mg/dL (35-150)
[2021-02-14] MEDS: PANTOPRAZOLE DR 40 MG TABLET PO ×2 (09:03→21:51)
[2021-02-14] MEDS: allopurinoL 100 MG TABLET PO (09:03)
[2021-02-14] MEDS: atenoloL 50 MG TABLET PO ×2 (09:03→21:51)
[2021-02-14] MEDS: DULOXETINE 20 MG CAPSULE PO (09:03)
[2021-02-14] MEDS: AMLODIPINE 5 MG TABLET 10 MG PO (09:03)
--- NOTE | 2021-02-14 09:43 | PC.NURSE ---
Pt on 2L O2 via nasal canella with O2 sats 97% Pt trialled off O2 and drops to 88% at rest. Pt remains on 2L. LS diminished to posterior bases. He is alert to self, place. He is forgetful but calm and cooperative. Equal strength to all extremities x4. NIH is 2.
[2021-02-14] MEDS: HYDROCODONE/ACET 5/325 TABLET 1 TAB PO (11:10)
--- NOTE | 2021-02-14 11:34 | PC.NURSE ---
Addendum entered by Sakina Sharpe R.N. 02/14/21 15:32: At 1300 pt was found to have pulled out his IV site. Dr. Mota has been made aware. Original Note: Pt has been assisted to transfer from the bed to the chair. He was able to move himself out of the bed with little assistance. He then stand and use the FWW. Pt was given a bed bath in the chair and redressed by BORA Villagomez.
--- NOTE | 2021-02-14 12:34 | OT.IPNOTE ---
Attempted to see pt for OT eval, pt states is too cold and just had pain medication for his knee pain. Able to give pt warm blankets and help reposition in the recliner. Call light placed in front of the pt. To attempt Ot eval in PM.
--- NOTE | 2021-02-14 15:10 | PT.IIE ---
Surgical History (Last Reviewed 02/14/21 @ 03:24 by LALI Higgins) History of ectropion repair (10/2017) Hx of surgical procedure Medical History (Last Reviewed 02/14/21 @ 03:24 by LALI Higgins) Acquired hypothyroidism (09/16/16) Actinic keratosis Basal cell carcinoma 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) Bilateral knee pain Colon polyps CVA (cerebral vascular accident) Depression (06/29/15) Erectile dysfunction (02/12/16) Essential hypertension (06/29/15) Gout Hemorrhoids Hyperlipemia Hyperthyroidism Insomnia Obstructive sleep apnea Osteoarthritis Primary insomnia (09/16/16) Squamous cell carcinoma Physical Therapy Inpatient Evaluation/Re-Eval M1 PT/OT-IP Prior Functional Status Start: 02/14/21 14:19 Freq: NEEDED Status: Active Protocol: Document 02/14/21 16:47 [facility] (Rec: 02/14/21 17:24 [facility] [id number]) Medical Review Prior Functional Status Medical History Reviewed Yes Communication Independent. Mobility and Gait Pt states mainly use of cane and placement of his hand on objects and surfacea for balance. Activities of Daily Living and IADL's Prior to two days ago, pt able to do all his ADL needs and daughter assists with medications, bills, and meals so that pt just has to microwave his meals. Social History Household Members family Living Arrangements House Number of Floors (Floors) One Floor Number of Stairs To Enter/Railing? 5 steps with right hand rail going up. Home Environment Standard Height Toilet,Walk in Shower Home Equipment Front Wheel Walker,Four Wheel Walker,Straight Cane,Manual Wheelchair,Grab Bars In Shower Additional Social History Comment Pt had recent stay at [facility] from 01/27/21-01/30/21 fro acute respiratory failure with sepsis due to PNA. M2 PT-IP Current Condition Start: 02/14/21 14:19 Freq: NEEDED Status: Active Protocol: Document 02/14/21 15:10 AW (Rec: 02/14/21 17:26 AW [email or web address]) Physical Therapy Current Condition Current Condition Evaluation Date 02/14/21 Treatment Diagnosis pneumonia, generalized weakness, difficulty in walking, frequent falls Onset Date 02/12/21 Precautions Other Precautions falls M3 PT-IP Subjective Start: 02/14/21 14:19 Freq: NEEDED Status: Active Protocol: Document 02/14/21 15:10 AW (Rec: 02/14/21 17:26 AW [email or web address]) Subjective Physical Therapy Visit Type Type Initial Evaluation Visit Start Time 14:36 Visit Stop Time 15:10 Total Visit Minutes 34 Notes Pt's Mary andino, was present throughout evaluation. Physical Therapy Visit Comments Patient Comments Pt is willing to participate with PT Patient Goals Pt wants to be strong enough to be able to care for himself . Therapy Pain Assessment Pain When Pain Assessed During Mobility Pain Present Pain Present Pain Reported Location bilateral knees Scale Used not quantified Description With Movement Pain Behaviors Facial Grimacing,Wincing Pain Management Techniques Modification of Treatment,Re- positioning M4 PT-IP Mobility and Gait Start: 02/14/21 14:19 Freq: NEEDED Status: Active Protocol: Document 02/14/21 15:10 AW (Rec: 02/14/21 17:26 AW [email or web address]) PT-Transfer Assessment Sit to and From Stand Sit to and from Stand Moderate Assistance,Maximum Assistance,1 Person Assistance ,Use of Upper Extremities Equipment Transfer Assistive Device Gait Belt,Straight Cane Orthotic/Prosthetic Devices or Brace: No Transfers Transfer Destination Chair,Toilet Transfer Technique Stand Step Pivot Transfer Ability Level of Assist Minimal Assistance Comments Mobility Comments Pt was sitting up in the chair as PT arrived, initially refusing mobility. Speech was consistent with previous encounters. Pt agreed to mobilize and scooted himself forward on the chair SBA. He required max cues and mod assist for sit to stand, pushing off both chair arms. In standing, PT handed pt a cane which he used to ambulate to the toilet CGA. He turned to sit on the toilet and used the grab bars on the right side to slowly lower himself to sitting. He complained of increased knee pain but was able to sit min assist. He voided and then attempted to stand, requiring max cues to use the grab bar on the right. PT moved BSC into position on the left side for pt to push off from. Pt stood with max assist x 1 and then used the cane to walk out to the sink. Hospitalist physician arrived at this time. Pt walked to the sink and back to the chair with SPC CGA, transferring back to the chair with poor control of descent. He was left with the physician attending, call light and tray table in reach. Gait Assessment Gait Gait Assistance Required: Contact Guard Assist Distance (Feet) 20 Assistive Devices Assistive Device Gait Belt,Straight Cane Orthotic/Prosthetic Devices or Brace: No Gait Deviations General Gait Pattern Antalgic,Decreased Stride Length,Decreased Feet Clearance,Flexed Trunk,Lateral Trunk Lean,Step-to Gait,Wide Based Gait Factors Limiting Gait Function Factors Limiting Gait Function Decreased Activity Tolerance, Decreased Strength,Limited Range of Motion,Pain,Poor Balance,Poor Safety Awareness Comments Gait Comments Pt is accustomed to using SPC and was able to ambulate with CGA. Stair Climbing Assessment Comments Stair Climbing Comments Not assessed. PT-Balance Assessment Sitting Balance and Reactions Static Sitting Balance Ability Good Dynamic Sitting Balance Ability Fair Standing Balance and Reactions Static Standing Balance Ability Fair Dynamic Standing Balance Ability Fair Device Used SPC M5 PT-IP Objective Assessments Start: 02/14/21 14:19 Freq: NEEDED Status: Active Protocol: Document 02/14/21 15:10 AW (Rec: 02/14/21 17:26 AW [email or web address]) Orientation Orientation/Cognition Level of Alertness Alert Orientation Name,Month,Place,Situation Language Function Ability Hard of Hearing Safety Awareness Decreased Safety Awareness Memory Description Short Term Impaired Gross Range of Motion Lower Extremity ROM Assessment Bilaterally Impaired Impairments AROM and PROM lacking TKE. Pt dorsiflexes only to neutral. Strength Lower Extremity Strength Assessment Bilaterally Impaired Hip 3+/5 Knee 4/5 Ankle 4/5 Comments Strength Comments No unilateral deficit on exam. Coordination Assessment Gross Coordination Gross Coordination WNL Assessment Finger to Nose Test Normal Performance Pronation/Supination Test Normal Performance Sensation Assessment Sensation Gross Sensation WNL Muscle Tone Muscle Tone WNL Yes Other Assessments Other Other Assessments SpO2 94% on 2L/min throughout treatment M6 PT-IP Treatment Start: 02/14/21 14:19 Freq: NEEDED Status: Active Protocol: Document 02/14/21 15:10 AW (Rec: 02/14/21 17:26 AW [email or web address]) Physical Therapy Treatment Education Education Provided Safety M7 PT-IP Assessment and Plan Start: 02/14/21 14:19 Freq: NEEDED Status: Active Protocol: Document 02/14/21 15:10 AW (Rec: 02/14/21 17:26 AW [email or web address]) PT Summary Assessment and Plan Potential Rehabilitation Potential Fair Status of Condition at Evaluation Evolving Summary Impairments ROM,Strength,Balance,Cognition ,Bed Mobility,Transfers,Gait, Activity Tolerance Assessment Summary Pt is an 85 yo man who is known to this PT from recent admissions. He is modified independent at baseline with SPC. His family had been providing near 24/7 care until ~2 weeks ago when they deemed him safe to be home alone for extended periods. His mobility began to decline 2 days ago and pt's daughter states they could not get him out of a chair. On evaluation, pt has no lateralizing deficits and coordination is good. He did require mod-max assist for sit to stand from chair and toilet and presents with increased weakness compared with previous encounters. Pt would benefit from SNF rehab at discharge to improve strength and mobility independence. If he goes home , PT recommends increased care at home and home health services. Goals Bed Mobility Goal Standby Assistance Transfer Goal Standby Assistance,Cane Gait Goal Standby Assistance,Cane Gait Distance 75 Other Goals - up/down 5 steps with B rails CGA Days to Meet Goals 8 Frequency of Treatment Frequency Of Treatment Once a Day Treatment Plan Physical Therapy Treatment Plan Bed Mobility Training,Transfer Training,Gait Training, Therapeutic Exercise,Balance Retraining,Discharge Planning, Hot or Cold Pack Other Recommendations and Next Treatment gait training with SPC (or FWW Focus if needed) Precautions Other Precautions falls Recommendations To Nursing Amount of Assist Needed 1 Person Assist Discharge Recommendations PT Discharge Recommendations Home vs SNF Other Discharge Recommendations increased assist and HH if plan is for home Transportation Needs at Discharge Private Vehicle,Wheelchair/ Cabulance
--- NOTE | 2021-02-14 15:10 | PT.IIE ---
Surgical History (Last Reviewed 02/14/21 @ 03:24 by LALI Higgins) History of ectropion repair (10/2017) Hx of surgical procedure Medical History (Last Reviewed 02/14/21 @ 03:24 by LALI Higgins) Acquired hypothyroidism (09/16/16) Actinic keratosis Basal cell carcinoma 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) Bilateral knee pain Colon polyps CVA (cerebral vascular accident) Depression (06/29/15) Erectile dysfunction (02/12/16) Essential hypertension (06/29/15) Gout Hemorrhoids Hyperlipemia Hyperthyroidism Insomnia Obstructive sleep apnea Osteoarthritis Primary insomnia (09/16/16) Squamous cell carcinoma Physical Therapy Inpatient Evaluation/Re-Eval M1 PT/OT-IP Prior Functional Status Start: 02/14/21 14:19 Freq: NEEDED Status: Active Protocol: Document 02/14/21 16:50 AW (Rec: 02/14/21 17:26 AW [email or web address]) Medical Review Prior Functional Status Medical History Reviewed Yes Communication Pt is NINILCHIK but does not use TOBIN. He is able to make his needs known. Per outpatient [facility] notes, pt recently scored 18/ 30 on SLUMS which is consistent with dementia. Mobility and Gait Pt uses a SPC at all times. He falls regulary - often backward. He has bilateral knee pain affecting his mobility. Left knee pain is more severe than right. Mobility is limited to household and very short community distances. Activities of Daily Living and IADL's Pt states he has been managing ADL's on his own over the past few weeks but needed assist from his daughters before that. He is frequently incontinent of urine and uses absorbent briefs. He has SBA for showers. Prior Functional Level (Other details) Pt had a brief rehab stay at [facility] following a December admission. This admit represents his second readmit in a month. Social History Living Arrangements House Number of Floors (Floors) One Floor Number of Stairs To Enter/Railing? 5 SAMANTHA with narrow bilateral rails Home Environment Standard Height Toilet,Walk in Shower,Built-In Shower Seat Home Equipment Front Wheel Walker,Four Wheel Walker,Straight Cane,Manual Wheelchair,Raised Toilet Seat w/Armrests,Grab Bars Near Toilet Employment Status Retired Additional Social History Comment Pt's daughters continue to coordinate care but they state pt was stable enough to be home alone over the past two weeks. His mobility began to decline again ~2 days ago. M2 PT-IP Current Condition Start: 02/14/21 14:19 Freq: NEEDED Status: Active Protocol: Document 02/14/21 15:10 AW (Rec: 02/14/21 17:26 AW [email or web address]) Physical Therapy Current Condition Current Condition Evaluation Date 02/14/21 Treatment Diagnosis pneumonia, generalized weakness, difficulty in walking, frequent falls Onset Date 02/12/21 Precautions Other Precautions falls M3 PT-IP Subjective Start: 02/14/21 14:19 Freq: NEEDED Status: Active Protocol: Document 02/14/21 15:10 AW (Rec: 02/14/21 17:26 AW [email or web address]) Subjective Physical Therapy Visit Type Type Initial Evaluation Visit Start Time 14:36 Visit Stop Time 15:10 Total Visit Minutes 34 Notes Pt's Mary andino, was present throughout evaluation. Physical Therapy Visit Comments Patient Comments Pt is willing to participate with PT Patient Goals Pt wants to be strong enough to be able to care for himself . Therapy Pain Assessment Pain When Pain Assessed During Mobility Pain Present Pain Present Pain Reported Location bilateral knees Scale Used not quantified Description With Movement Pain Behaviors Facial Grimacing,Wincing Pain Management Techniques Modification of Treatment,Re- positioning M4 PT-IP Mobility and Gait Start: 02/14/21 14:19 Freq: NEEDED Status: Active Protocol: Document 02/14/21 15:10 AW (Rec: 02/14/21 17:26 AW [email or web address]) PT-Transfer Assessment Sit to and From Stand Sit to and from Stand Moderate Assistance,Maximum Assistance,1 Person Assistance ,Use of Upper Extremities Equipment Transfer Assistive Device Gait Belt,Straight Cane Orthotic/Prosthetic Devices or Brace: No Transfers Transfer Destination Chair,Toilet Transfer Technique Stand Step Pivot Transfer Ability Level of Assist Minimal Assistance Comments Mobility Comments Pt was sitting up in the chair as PT arrived, initially refusing mobility. Speech was consistent with previous encounters. Pt agreed to mobilize and scooted himself forward on the chair SBA. He required max cues and mod assist for sit to stand, pushing off both chair arms. In standing, PT handed pt a cane which he used to ambulate to the toilet CGA. He turned to sit on the toilet and used the grab bars on the right side to slowly lower himself to sitting. He complained of increased knee pain but was able to sit min assist. He voided and then attempted to stand, requiring max cues to use the grab bar on the right. PT moved BSC into position on the left side for pt to push off from. Pt stood with max assist x 1 and then used the cane to walk out to the sink. Hospitalist physician arrived at this time. Pt walked to the sink and back to the chair with SPC CGA, transferring back to the chair with poor control of descent. He was left with the physician attending, call light and tray table in reach. Gait Assessment Gait Gait Assistance Required: Contact Guard Assist Distance (Feet) 20 Assistive Devices Assistive Device Gait Belt,Straight Cane Orthotic/Prosthetic Devices or Brace: No Gait Deviations General Gait Pattern Antalgic,Decreased Stride Length,Decreased Feet Clearance,Flexed Trunk,Lateral Trunk Lean,Step-to Gait,Wide Based Gait Factors Limiting Gait Function Factors Limiting Gait Function Decreased Activity Tolerance, Decreased Strength,Limited Range of Motion,Pain,Poor Balance,Poor Safety Awareness Comments Gait Comments Pt is accustomed to using SPC and was able to ambulate with CGA. Stair Climbing Assessment Comments Stair Climbing Comments Not assessed. PT-Balance Assessment Sitting Balance and Reactions Static Sitting Balance Ability Good Dynamic Sitting Balance Ability Fair Standing Balance and Reactions Static Standing Balance Ability Fair Dynamic Standing Balance Ability Fair Device Used SPC M5 PT-IP Objective Assessments Start: 02/14/21 14:19 Freq: NEEDED Status: Active Protocol: Document 02/14/21 15:10 AW (Rec: 02/14/21 17:26 AW [email or web address]) Orientation Orientation/Cognition Level of Alertness Alert Orientation Name,Month,Place,Situation Language Function Ability Hard of Hearing Safety Awareness Decreased Safety Awareness Memory Description Short Term Impaired Gross Range of Motion Lower Extremity ROM Assessment Bilaterally Impaired Impairments AROM and PROM lacking TKE. Pt dorsiflexes only to neutral. Strength Lower Extremity Strength Assessment Bilaterally Impaired Hip 3+/5 Knee 4/5 Ankle 4/5 Comments Strength Comments No unilateral deficit on exam. Coordination Assessment Gross Coordination Gross Coordination WNL Assessment Finger to Nose Test Normal Performance Pronation/Supination Test Normal Performance Sensation Assessment Sensation Gross Sensation WNL Muscle Tone Muscle Tone WNL Yes Other Assessments Other Other Assessments SpO2 94% on 2L/min throughout treatment M6 PT-IP Treatment Start: 02/14/21 14:19 Freq: NEEDED Status: Active Protocol: Document 02/14/21 15:10 AW (Rec: 02/14/21 17:26 AW [email or web address]) Physical Therapy Treatment Education Education Provided Safety M7 PT-IP Assessment and Plan Start: 02/14/21 14:19 Freq: NEEDED Status: Active Protocol: Document 02/14/21 15:10 AW (Rec: 02/14/21 17:26 AW [email or web address]) PT Summary Assessment and Plan Potential Rehabilitation Potential Fair Status of Condition at Evaluation Evolving Summary Impairments ROM,Strength,Balance,Cognition ,Bed Mobility,Transfers,Gait, Activity Tolerance Assessment Summary Pt is an 85 yo man who is known to this PT from recent admissions. He is modified independent at baseline with SPC. His family had been providing near 24/7 care until ~2 weeks ago when they deemed him safe to be home alone for extended periods. His mobility began to decline 2 days ago and pt's daughter states they could not get him out of a chair. On evaluation, pt has no lateralizing deficits and coordination is good. He did require mod-max assist for sit to stand from chair and toilet and presents with increased weakness compared with previous encounters. Pt would benefit from SNF rehab at discharge to improve strength and mobility independence. If he goes home , PT recommends increased care at home and home health services. Goals Bed Mobility Goal Standby Assistance Transfer Goal Standby Assistance,Cane Gait Goal Standby Assistance,Cane Gait Distance 75 Other Goals - up/down 5 steps with B rails CGA Days to Meet Goals 8 Frequency of Treatment Frequency Of Treatment Once a Day Treatment Plan Physical Therapy Treatment Plan Bed Mobility Training,Transfer Training,Gait Training, Therapeutic Exercise,Balance Retraining,Discharge Planning, Hot or Cold Pack Other Recommendations and Next Treatment gait training with SPC (or FWW Focus if needed) Precautions Other Precautions falls Recommendations To Nursing Amount of Assist Needed 1 Person Assist Discharge Recommendations PT Discharge Recommendations Home vs SNF Other Discharge Recommendations increased assist and HH if plan is for home Transportation Needs at Discharge Private Vehicle,Wheelchair/ Cabulance
--- NOTE | 2021-02-14 16:15 | OT.IP.EVAL ---
Past Medical History (Last Reviewed 02/14/21 @ 03:24 by LALI Higgins) Acquired hypothyroidism (09/16/16) Actinic keratosis Basal cell carcinoma 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) Bilateral knee pain Colon polyps CVA (cerebral vascular accident) Depression (06/29/15) Erectile dysfunction (02/12/16) Essential hypertension (06/29/15) Gout Hemorrhoids Hyperlipemia Hyperthyroidism Insomnia Obstructive sleep apnea Osteoarthritis Primary insomnia (09/16/16) Squamous cell carcinoma Surgical History (Last Reviewed 02/14/21 @ 03:24 by LALI Higgins) History of ectropion repair (10/2017) Hx of surgical procedure Occupational Therapy Inpatient Evaluation/Re-Eval M1 PT/OT-IP Prior Functional Status Start: 02/14/21 14:19 Freq: NEEDED Status: Active Protocol: Document 02/14/21 16:47 [facility] (Rec: 02/14/21 17:24 [facility] [id number]) Medical Review Prior Functional Status Medical History Reviewed Yes Communication Independent. Mobility and Gait Pt states mainly use of cane and placement of his hand on objects and surfaces for balance. Activities of Daily Living and IADL's Prior to two days ago, pt able to do all his ADL needs and daughter assists with medications, bills, and meals so that pt just has to microwave his meals. Social History Household Members family Living Arrangements House Number of Floors (Floors) One Floor Number of Stairs To Enter/Railing? 5 steps with right hand rail going up. Home Environment Standard Height Toilet,Walk in Shower Home Equipment Front Wheel Walker,Four Wheel Walker,Straight Cane,Manual Wheelchair,Grab Bars In Shower Additional Social History Comment Pt had recent stay at [facility] from 01/27/21-01/30/21 for acute respiratory failure with sepsis due to PNA. M2 OT-IP Current Condition Start: 02/14/21 16:46 Freq: Status: Active Protocol: Document 02/14/21 16:47 [facility] (Rec: 02/14/21 17:24 [facility] [id number]) Occupational Therapy Current Condition Current Condition Evaluation Date 02/14/21 Treatment Diagnosis weakness, suspected TIA vs CVA , decreased mobility M3 OT- IP Subjective and Pain Start: 02/14/21 16:46 Freq: Status: Active Protocol: Document 02/14/21 16:47 [facility] (Rec: 02/14/21 17:24 [facility] [id number]) OT- Subjective Occupational Therapy Visit Type Type Initial Evaluation Visit Start Time 15:45 Visit Stop Time 16:15 Total Visit Minutes 30 Occupational Therapy Visit Comments Patient Comments Pt agreed to get up. Pt's daughter in the room. Patient/Caregiver Goals Pt wanting to be able to get up and move around better. OT Pain Assessment Pain When Pain Assessed During Mobility Pain Present Pain Present Pain Reported M4 OT- IP ADL's Start: 02/14/21 16:46 Freq: Status: Active Protocol: Document 02/14/21 16:47 [facility] (Rec: 02/14/21 17:24 [facility] [id number]) OT [id number] Comments OT Self-Feeding Comments Not at meal time. OT ADL-Grooming General Evaluation Grooming Ability Standby Assistance Areas Needing Assistance Retrieving/Set-up of Grooming Items Comments OT Grooming Comments WHile seated. OT ADL-Oral Care Comments Oral Care Comments Not performed. OT ADL-Dressing General Eval Lower Body Dressing Ability Moderate Assistance Comments OT Dressing Comments Pt not able to doff/navid his right sock as unable to bend over or cross his leg to assist. OT ADL-Toileting General Evaluation Toileting Ability Moderate Assistance Areas Needing Assistance Manage Clothing,Perform Perineal Hygiene Comments OT Toileting Comments Pt able to reach back to wipe during trial as pt not having to go. Pt however says usually stands and at this time would needs asisst for balance and increased assist for clothing . OT ADL-Bathing Comments OT Bathing Comments Not performed as pt too tired. M5 OT- IP IADL's Start: 02/14/21 16:46 Freq: Status: Active Protocol: Document 02/14/21 16:47 [facility] (Rec: 02/14/21 17:24 [facility] [id number]) OT-Instrumental Activities of Daily Living Home Safety Awareness Awareness of Need for Assistance at Home Good Awareness Ability to Problem Solve Emergency Able to Problem Solve Situations Home Safety Comments Pt able to accurately answer correctly home safety situations. Medication Management Medication Management Caregiver Provides Supervision Medication Management Comments Pt's daughter able to set-up pills in an organizer for pt. Money Management Money Management Caregiver Provides Assistance Meal Preparation Meal Preparation Caregiver Provides Assist Printing Table Hand Printing Table Hand Caregiver Provides Assist M6 OT- IP Functional Cognition Start: 02/14/21 16:46 Freq: Status: Active Protocol: Document 02/14/21 16:47 [facility] (Rec: 02/14/21 17:24 [facility] [id number]) Cognitive Factors Limiting Selfcare Function Cognitive Ability Level of Alertness Alert Patient Orientation Name,Place,Situation Attention Span Ability Capable of Focused Attention, Capable of Sustained Attention Ability to Follow Commands Able to Follow One Step Commands Memory Description Short Term Impaired Safety Awareness Underestimates Need for Assistance Cognitive Tests SLUMS To do SLUMS tomorrow. Cognitive Comments Cognitive Assessment Comments Pt a little hard of hearing. Pt needing encouragement to participate initially. Pt needing cues for safety to turn all the way around before sitting and use of cane as pt trying to steady himself with the tray table before sitting down. Pt also needing safety cues to scoot forwards before standing. Pt having some word finding difficulties when trying to tell therapist what body area was being touched on his arm during light touch assessment. OT- Vision and Hearing OT- Hearing Assessment OT- Hearing Assessment WFL OT- Vision Assessment Visual Acuity Glasses All The Time M7 OT- IP Mobility and Balance Start: 02/14/21 16:46 Freq: Status: Active Protocol: Document 02/14/21 16:47 [facility] (Rec: 02/14/21 17:24 [facility] [id number]) OT-Transfer Assessment Sit to and From Stand Sit to and from Stand Minimal Assistance,Moderate Assistance Transfers Transfer Ability Minimal Assistance Technique Transfer Destination Chair,Toilet Transfer Technique Stand Step Pivot Devices Transfer Assistive Devices Gait Belt,Straight Cane Comments Mobility Comments Pt needing from ANSHU to MODA to stand pending height of surface getting up from. ANSHU for balance with use of SPC as pt prefers to use. Pt also tends to reach out with his left hand for balance on the wall and surfaces. Pt states does so for safety. OT- Gait Assessment Comments Gait Ability Comments CGA to ANSHU with SPC. OT- Balance Assessment Sitting Balance and Reactions Static Sitting Balance Ability Good Dynamic Sitting Balance Ability Fair Standing Balance and Reactions Static Standing Balance Ability Fair Comments Other Balance Tests/Deviations/Treatment Pt unsteady when coming to : stand. M8 OT- IP Objective Assessments Start: 02/14/21 16:46 Freq: Status: Active Protocol: Document 02/14/21 16:47 [facility] (Rec: 02/14/21 17:24 [facility] [id number]) OT Gross Range of Motion Upper Extremity Range of Motion ROM Impairments Grossly WFL OT Strength Upper Extremity Strength Assessment Within Functional Limits OT- Coordination Assessment Upper Extremity Finger to Nose Test Left UE Impaired Comments Coordination Comments Initially left hand slightly off center and then 2nd attempt on target for tip of his nose. OT Sensation Assessment Comments Summary Comments Intact for light touch. M9 OT- IP Assessment and Plan Start: 02/14/21 16:46 Freq: Status: Active Protocol: Document 02/14/21 16:47 [facility] (Rec: 02/14/21 17:24 [facility] [id number]) OT Summary Assessment and Plan Potential Rehabilitation Potential Good Analytic Complexity at Evaluation Moderate Summary OT Impairments Pain,Balance,Functional Cognition,Functional Mobility, Grooming,Dressing,Toileting, Bathing,Toilet Transfers, Shower Transfers,Activity Tolerance Progress Towards Goals Slow Progress due to Pain,Slow Progress due to Medical Issues,Slow Progress due to Activity Tolerance Assessment Summary Pt mod complexity and here due to weakness and dysarthria. Pt now needing assist for ADl and functional mobility. Pt needing MODA for sit to stand from lower surfaces and is unsteady on his feet. Pt would benefit from skilled rehab as two days ago per daughter able to do all his basic needs on his own. Pt is motivated to get better and go home. Goals Grooming Goal Independent Dressing Goal Independent Toileting Goal Independent Bathing Goal Independent Toilet Transfer Goal Independent Shower Transfer Goal Independent Patient/Caregiver Education Goal Demonstrate Energy Conservation and Pacing Days to Meet Goals 15 Frequency of Treatment Frequency Of Treatment Once a Day Treatment Plan OT Treatment Plan ADL Training,Functional Cognition Training,Functional Mobility,Patient/Family Education,Discharge Planning Other Treatment Recommendations and Next shower Treatment Focus Discharge Recommendations OT Discharge Recommendations SNF Rehab Transportation Needs at Discharge Wheelchair/Cabulance
--- NOTE | 2021-02-14 16:41 | PM.PN.1 ---
Subjective Subjective Date Patient Seen: 02/14/21 Interval history: patient is an 85-year-old male who presented last evening with progressive weakness and concern for possible TIA. He was seen by physical therapy today. It was felt that the patient is nearly back to his usual baseline. According to his daughter he has been coughing. He also has known sleep apnea and has a CPAP machine at home which she does not use. He was documented to be hypoxic this morning with a room air sat of 84%. Patient was hypoxic last evening as well and placed on 2 L of oxygen. Exam Vital Signs (past 8 hours): - 02/14/21 09:31 02/14/21 10:52 02/14/21 11:48 Temperature 98 F Pulse Rate 81 78 Respiratory Rate 16 20 Blood Pressure 111/61 Pulse Oximetry 97 92 96 02/14/21 15:29 Temperature 97.8 F Pulse Rate 75 Respiratory Rate 20 Blood Pressure 123/54 L Pulse Oximetry 95 Oxygen Delivery Method Room Air Oxygen Flow Rate 2 Objective Labs Result Diagrams: 02/14/21 04:55 02/14/21 04:55 Labs: Laboratory Results - last 24 hr 02/13/21 02/13/21 02/13/21 14:45 14:45 14:45 WBC RBC Hgb Hct MCV MCH MCHC RDW Plt Count Neut % (Auto) Lymph % (Auto) [place] % (Auto) Eos % (Auto) Baso % (Auto) Neut # (Auto) Lymph # (Auto) [place] # (Auto) Eos # (Auto) Baso # (Auto) Sodium Potassium Chloride Carbon Dioxide BUN Creatinine Estimated GFR BUN/Creatinine Ratio Glucose Hemoglobin A1c Cancelled Calcium Magnesium 2.1 Triglycerides Cholesterol LDL Cholesterol, Calc HDL Cholesterol Procalcitonin Cancelled Urine RBC Urine WBC Urine Bacteria Ur Culture Indicated? SARS-CoV-2 (PCR) 02/13/21 02/13/21 02/13/21 16:28 19:51 23:59 WBC RBC Hgb 10.0 L Hct 31.9 L MCV MCH MCHC RDW Plt Count Neut % (Auto) Lymph % (Auto) [place] % (Auto) Eos % (Auto) Baso % (Auto) Neut # (Auto) Lymph # (Auto) [place] # (Auto) Eos # (Auto) Baso # (Auto) Sodium Potassium Chloride Carbon Dioxide BUN Creatinine Estimated GFR BUN/Creatinine Ratio Glucose Hemoglobin A1c Calcium Magnesium Triglycerides Cholesterol LDL Cholesterol, Calc HDL Cholesterol Procalcitonin Urine RBC 5-10/hpf H Urine WBC None seen Urine Bacteria None seen Ur Culture Indicated? Cult not indicated SARS-CoV-2 (PCR) Negative 02/14/21 02/14/21 04:55 04:55 WBC 13.2 H RBC 3.71 L Hgb 9.5 L Hct 29.1 L MCV 78.4 L MCH 25.6 L MCHC 32.6 RDW 19.4 H Plt Count 240 Neut % (Auto) 81.0 H Lymph % (Auto) 7.9 L [place] % (Auto) 9.7 Eos % (Auto) 0.9 L Baso % (Auto) 0.5 Neut # (Auto) 85586 H Lymph # (Auto) 1000 L [place] # (Auto) 1300 H Eos # (Auto) 100 Baso # (Auto) 100 Sodium 137 Potassium 4.1 Chloride 102 Carbon Dioxide 31 BUN 32 H Creatinine 0.88 Estimated GFR > 60.0 BUN/Creatinine Ratio 36.4 H Glucose 106 Hemoglobin A1c Calcium 8.9 Magnesium Triglycerides 61 Cholesterol 88 L LDL Cholesterol, Calc 50 HDL Cholesterol 26 L Procalcitonin Urine RBC Urine WBC Urine Bacteria Ur Culture Indicated? SARS-CoV-2 (PCR) [facility] Medical History Acquired hypothyroidism (09/16/16) Actinic keratosis Basal cell carcinoma 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) Bilateral knee pain Colon polyps CVA (cerebral vascular accident) Depression (06/29/15) Erectile dysfunction (02/12/16) Essential hypertension (06/29/15) Gout Hemorrhoids Hyperlipemia Hyperthyroidism Insomnia Obstructive sleep apnea Osteoarthritis Primary insomnia (09/16/16) Squamous cell carcinoma Surgical History History of ectropion repair (10/2017) Hx of surgical procedure Family History Family/Other Unknown family medical history Social History household members: family Smoking Status: Former smoker Assessment & Plan Assessment & Plan narrative: Suspected TIA versus stroke, acute, present on admission Cardiac telemetry NIH score greater than 5 no NIH scoring and neuro checks q 4 hours Dual antiplatelet therapy: No, just started on low dose ASA due to recent history of a GI bleed MR stroke scheduled for 02/14 Patient fell out of the tPa window for administration MRI reveals no evidence of stroke. 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 Presumed community acquired pneumonia, unknown acuity, present on admission He will receive IV ceftriaxone 1 gram daily Will continue antibiotics 3. Essential hypertension, chronic and present on admission Continue home dose of amlodipine 10 mg po daily, atenolol 50 mg po daily 4. GERD, chronic Continue home dose of pantoprazole 40 mg po bid 5. Depression, chronic Continue home dose of duloxitine 20 mg po daily and trazodone 100 g po at bedtime 6. BPH, chronic Continue home doses of tamsulosin 0.4 mg po daily 7. 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
--- NOTE | 2021-02-14 17:40 | CM.DPC ---
DCP/Assessment: Reviewed chart. Patient is a 85yr old male admitted to [facility] with weakness. PCP is Dr. Roman. Primary payor is 1)[facility]. Met with patient and daughter this afternoon explained CM/SW role. Initially it was thought that patient may have had a TIA/CVA. MRI completed today and it was negative. Patient resides alone in [place], uses cane at baseline. PT and OT evaluations completed late this afternoon. Both recommend SNF. First SNF choice is [facility]. PRESSURE WASHER left vm with Debra at [facility] to review for admit. [facility] will need to be contacted for SNF authorization on 02-15-21. If SNF denied daughter aware that patient will need to d/c home with HH and additional help. Daughter reports that family working on long-term plan to keep patient in his residence. Medicaid application and senior resource guide provided to daughter if needed. Daughter does not think patient will qualify for Medicaid. P: [facility] reviewing and SNF authorization will need to be obtained for short SNF stay after hospitalization. LINDA Pendleton Discharge Planning/Care Management CM Discharge Assessment Start: 02/14/21 17:09 Freq: Status: Active Protocol: Document 02/14/21 17:09 [facility] (Rec: 02/14/21 17:40 [facility] [id number]) Discharge Planning Assessment Assigned Cattery Operator LINDA Pendleton Contact Information Nessa Carbone (daughter) # [phone] Advance Directives? Yes Advance Directives on File Yes History Provided By Patient,Medical Record Prior Living Arrangements House Household Members family Is patient alert and oriented? Yes Caregiver for Another No DME Already Rented / Owned Cane Barriers to Discharge No Discharge Plan Home Transportation Arrangement Daughter Nessa Referrals Initiated None needed Whiteboard Updated in Patient Room with Yes name and ext. # of Cattery Operator Review Status In Process Next Review Type Continued Stay Review
[2021-02-14] MEDS: TAMSULOSIN 0.4 MG CAPSULE PO (21:51)
[2021-02-14] MEDS: cefTRIAXone 1,000 MG in SODIUM CHLORIDE 0.9% 100 ML 200 ML IV (23:50)
[2021-02-15] VITALS (9 sets, daily range): BP systolic 116–137; BP diastolic 45–76; PULSE 59–77; RESP 14–20; TEMP 36.1–36.7; O2SAT 91–99
[2021-02-15] MEDS: TRAZODONE 100 MG TABLET PO ×2 (00:23→20:58)
[2021-02-15] MEDS: HYDROCODONE/ACET 5/325 TABLET 1 TAB PO (02:34)
--- NOTE | 2021-02-15 06:58 | PC.NURSE ---
2 liters / 99%, Turned off oxygen at this time. RA 97% will monitor.
--- NOTE | 2021-02-15 09:11 | CM.DPNOTE ---
Sandrita from [facility] called to let us know pt. is using their services for nursing and PT. Her number [phone]. Saranya Duong CM Asst.
--- NOTE | 2021-02-15 09:46 | PT.IPTN ---
Current Diagnoses Pneumonia, unspecified organism (02/13/21) Physical Therapy Treatment Note M2 PT-IP Current Condition Start: 02/14/21 14:19 Freq: NEEDED Status: Active Protocol: Document 02/15/21 10:31 MA (Rec: 02/15/21 10:49 MA [id number]) Physical Therapy Current Condition Current Condition Evaluation Date 02/14/21 Treatment Diagnosis pneumonia, generalized weakness, difficulty in walking, frequent falls Onset Date 02/12/21 Precautions Other Precautions falls M3 PT-IP Subjective Start: 02/14/21 14:19 Freq: NEEDED Status: Active Protocol: Document 02/15/21 10:31 MA (Rec: 02/15/21 10:49 MA [id number]) Subjective Physical Therapy Visit Type Type Treatment Note Visit Start Time 09:13 Visit Stop Time 09:46 Total Visit Minutes 33 Number of DOPE MIXER Visits 1 Physical Therapy Visit Comments Patient Comments Pt is ready to get up and walk with PT. He agrees to stair training today. Patient Goals Pt would like to go home but understands he may need to go to SNF M4 PT-IP Mobility and Gait Start: 02/14/21 14:19 Freq: NEEDED Status: Active Protocol: Document 02/15/21 10:31 MA (Rec: 02/15/21 10:49 MA [id number]) PT-Transfer Assessment Sit to and From Stand Sit to and from Stand Contact Guard Assistance,1 Person Assistance,Use of Upper Extremities Equipment Transfer Assistive Device Gait Belt,Straight Cane Orthotic/Prosthetic Devices or Brace: No Transfers Transfer Destination Chair Transfer Technique Stand Step Pivot Transfer Ability Level of Assist Contact Guard Assistance Comments Mobility Comments Pt was in room chair upon arrival. He stood unassisted initally upon PTs arrival while DOPE MIXER was talking with nurse showing poor safety awareness. Pt was CGA for standing after due to decreased balance. Gait Assessment Gait Gait Assistance Required: Contact Guard Assist Distance (Feet) 200 Able to Maintain Weight Bearing Status Yes During Gait Assistive Devices Assistive Device Gait Belt,Straight Cane Orthotic/Prosthetic Devices or Brace: No Gait Deviations General Gait Pattern Decreased Stride Length, Decreased Feet Clearance, Flexed Trunk,Lateral Trunk Lean,Step-to Gait,Wide Based Gait Factors Limiting Gait Function Factors Limiting Gait Function Decreased Activity Tolerance, Decreased Strength,Limited Range of Motion,Pain,Poor Balance,Poor Safety Awareness Comments Gait Comments Pt is able to ambulate 200 feet [address] hallway and back to room today CGA with SPC. He has 1 episode of LOB while walking requiring Min A to catch his balance. When returned to room, pt sat CGA in wheelchair set up outside room to bring pt to stairs. Stair Climbing Assessment Evaluation Level of Assist On Stairs Contact Guard Assistance Devices Stair Climbing Assistive Devices Left Railing,Right Railing Technique/Endurance Stair Climbing Direction Ascend and Descend Stair Climbing Technique Step to Step Number of Steps Climbed 3 Stair Climbing Set # Repetitions (reps) 2 Comments Stair Climbing Comments Pt was able to ascend/descend stairs CGA with heavy use of UEs on bilateral rails. He takes increased time to move and alternates testing out which leg feels more stable before stepping to next step. PT-Balance Assessment Sitting Balance and Reactions Static Sitting Balance Ability Good Dynamic Sitting Balance Ability Good Standing Balance and Reactions Static Standing Balance Ability Fair Dynamic Standing Balance Ability Fair Device Used SPC Comments Other Balance Tests/Deviations/Treatment Pt is able to sit in room : chair with good balance while pushing around his tray and reaching to adjust socks. M5 PT-IP Objective Assessments Start: 02/14/21 14:19 Freq: NEEDED Status: Active Protocol: Document 02/14/21 15:10 AW (Rec: 02/14/21 17:26 AW [id number]) Orientation Orientation/Cognition Level of Alertness Alert Orientation Name,Month,Place,Situation Language Function Ability Hard of Hearing Safety Awareness Decreased Safety Awareness Memory Description Short Term Impaired Gross Range of Motion Lower Extremity ROM Assessment Bilaterally Impaired Impairments AROM and PROM lacking TKE. Pt dorsiflexes only to neutral. Strength Lower Extremity Strength Assessment Bilaterally Impaired Hip 3+/5 Knee 4/5 Ankle 4/5 Comments Strength Comments No unilateral deficit on exam. Coordination Assessment Gross Coordination Gross Coordination WNL Assessment Finger to Nose Test Normal Performance Pronation/Supination Test Normal Performance Sensation Assessment Sensation Gross Sensation WNL Muscle Tone Muscle Tone WNL Yes Other Assessments Other Other Assessments SpO2 94% on 2L/min throughout treatment M6 PT-IP Treatment Start: 02/14/21 14:19 Freq: NEEDED Status: Active Protocol: Document 02/15/21 10:31 MA (Rec: 02/15/21 10:49 MA [id number]) Physical Therapy Treatment Education Education Provided Safety M7 PT-IP Assessment and Plan Start: 02/14/21 14:19 Freq: NEEDED Status: Active Protocol: Document 02/15/21 10:31 MA (Rec: 02/15/21 10:49 MA [id number]) PT Summary Assessment and Plan Potential Rehabilitation Potential Fair Status of Condition at Evaluation Evolving Summary Impairments ROM,Strength,Balance,Cognition ,Bed Mobility,Transfers,Gait, Activity Tolerance Assessment Summary Pt is able to walk 200 feet today CGA using SPC with single bout of Min A for LOB. He shows poor safety awareness and was found to have removed his O2 prior to PTs arrival and stood unassisted while PT was outside room talking with nurse about pt's O2 levels. Pts O2 status remained between 92-96% throughout session on room air. He was able to complete stair training [id number] ascending/descending CGA with heavy use of bilateral UEs and increased time taken for pt to test out each leg prior to stepping. Pt was returned to room chair with pulse ox and chair alarm donned and nurse notified of pt's oxygen levels at 96%. Goals Bed Mobility Goal Standby Assistance Transfer Goal Standby Assistance,Cane Gait Goal Standby Assistance,Cane Gait Distance 75 Other Goals - up/down 5 steps with B rails CGA Days to Meet Goals 8 Frequency of Treatment Frequency Of Treatment Once a Day Treatment Plan Physical Therapy Treatment Plan Bed Mobility Training,Transfer Training,Gait Training, Therapeutic Exercise,Balance Retraining,Discharge Planning, Hot or Cold Pack Other Recommendations and Next Treatment Continue increasing gait Focus distance with SPC, CGA Precautions Other Precautions falls Recommendations To Nursing Amount of Assist Needed Independent,Standby Assistance Discharge Recommendations PT Discharge Recommendations Home vs SNF Other Discharge Recommendations increased assist and HH if plan is for home Transportation Needs at Discharge Private Vehicle,Wheelchair/ Cabulance
[2021-02-15] MEDS: allopurinoL 100 MG TABLET PO (10:49)
[2021-02-15] MEDS: AMLODIPINE 5 MG TABLET 10 MG PO (10:49)
[2021-02-15] MEDS: DULOXETINE 20 MG CAPSULE PO (10:50)
[2021-02-15] MEDS: SODIUM CHLORIDE 0.9% FLUSH 10 ML IV ×2 (10:50→20:59)
[2021-02-15] MEDS: PANTOPRAZOLE DR 40 MG TABLET PO ×2 (10:50→20:58)
[2021-02-15] MEDS: atenoloL 50 MG TABLET PO ×2 (10:50→20:57)
--- NOTE | 2021-02-15 13:11 | OT.IP.TRT ---
Current Diagnoses Pneumonia, unspecified organism (02/13/21) Occupational Therapy Treatment Note M2 OT-IP Current Condition Start: 02/14/21 16:46 Freq: Status: Active Protocol: Document 02/14/21 16:47 [facility] (Rec: 02/14/21 17:24 [facility] [id number]) Occupational Therapy Current Condition Current Condition Evaluation Date 02/14/21 Treatment Diagnosis weakness, suspected TIA vs CVA , decreased mobility M3 OT- IP Subjective and Pain Start: 02/14/21 16:46 Freq: Status: Active Protocol: Document 02/15/21 15:32 [facility] (Rec: 02/15/21 15:40 [facility] [id number]) OT- Subjective Occupational Therapy Visit Type Type Treatment Note Visit Start Time 14:57 Visit Stop Time 15:06 Total Visit Minutes 9 Occupational Therapy Visit Comments Patient Comments Pt not wanting to shower at this time as feeling too tired and agreed to do SLUMS. Patient/Caregiver Goals TO go home. M4 OT- IP ADL's Start: 02/14/21 16:46 Freq: Status: Active Protocol: Document 02/14/21 16:47 [facility] (Rec: 02/14/21 17:24 [facility] [id number]) OT [id number] Comments OT Self-Feeding Comments Not at meal time. OT ADL-Grooming General Evaluation Grooming Ability Standby Assistance Areas Needing Assistance Retrieving/Set-up of Grooming Items Comments OT Grooming Comments WHile seated. OT ADL-Oral Care Comments Oral Care Comments Not performed. OT ADL-Dressing General Eval Lower Body Dressing Ability Moderate Assistance Comments OT Dressing Comments Pt not able to doff/navid his right sock as unable to bend over or cross his leg to assist. OT ADL-Toileting General Evaluation Toileting Ability Moderate Assistance Areas Needing Assistance Manage Clothing,Perform Perineal Hygiene Comments OT Toileting Comments Pt able to reach back to wipe during trial as pt not having to go. Pt however says usually stands and at this time would needs assist for balance and increased assist for clothing . OT ADL-Bathing Comments OT Bathing Comments Not performed as pt too tired. M5 OT- IP IADL's Start: 02/14/21 16:46 Freq: Status: Active Protocol: Document 02/14/21 16:47 [facility] (Rec: 02/14/21 17:24 [facility] [id number]) OT-Instrumental Activities of Daily Living Home Safety Awareness Awareness of Need for Assistance at Home Good Awareness Ability to Problem Solve Emergency Able to Problem Solve Situations Home Safety Comments Pt able to accurately answer correctly home safety situations. Medication Management Medication Management Caregiver Provides Supervision Medication Management Comments Pt's daughter able to set-up pills in an organizer for pt. Money Management Money Management Caregiver Provides Assistance Meal Preparation Meal Preparation Caregiver Provides Assist Client Coordinator Client Coordinator Caregiver Provides Assist M6 OT- IP Functional Cognition Start: 02/14/21 16:46 Freq: Status: Active Protocol: Document 02/15/21 15:32 [facility] (Rec: 02/15/21 15:40 [facility] [id number]) Cognitive Factors Limiting Selfcare Function Cognitive Ability Level of Alertness Alert Patient Orientation Name,Date,Year,Day of Week, Place,Situation Attention Span Ability Capable of Focused Attention, Capable of Sustained Attention Ability to Follow Commands Able to Follow One Step Commands Memory Description Short Term Impaired,Working Impaired Safety Awareness Underestimates Need for Assistance Cognitive Tests SLUMS Attempted to do SLUMS with pt and pt initiated and then got frustrated and wanting to stop. Pt able to score 10/16 and not able to state 2 and 3 digits numbers backwards and only able to recall 1/5 words after time passed. Cognitive Comments Cognitive Assessment Comments Pt hard of hearing therefore at times having trouble to understand directions. Pt states feeling tired and not wanting to complete SLUMS at this time. M7 OT- IP Mobility and Balance Start: 02/14/21 16:46 Freq: Status: Active Protocol: Document 02/14/21 16:47 [facility] (Rec: 02/14/21 17:24 [facility] [id number]) OT-Transfer Assessment Sit to and From Stand Sit to and from Stand Minimal Assistance,Moderate Assistance Transfers Transfer Ability Minimal Assistance Technique Transfer Destination Chair,Toilet Transfer Technique Stand Step Pivot Devices Transfer Assistive Devices Gait Belt,Straight Cane Comments Mobility Comments Pt needing from ANSHU to MODA to stand pending height of surface getting up from. ANSHU for balance with use of SPC as pt prefers to use. Pt also tends to reach out with his left hand for balance on the wall and surfaces. Pt states does so for safety. OT- Gait Assessment Comments Gait Ability Comments CGA to ANSHU with SPC. OT- Balance Assessment Sitting Balance and Reactions Static Sitting Balance Ability Good Dynamic Sitting Balance Ability Fair Standing Balance and Reactions Static Standing Balance Ability Fair Comments Other Balance Tests/Deviations/Treatment Pt unsteady when coming to : stand. M8 OT- IP Objective Assessments Start: 02/14/21 16:46 Freq: Status: Active Protocol: Document 02/14/21 16:47 [facility] (Rec: 02/14/21 17:24 [facility] [id number]) OT Gross Range of Motion Upper Extremity Range of Motion ROM Impairments Grossly WFL OT Strength Upper Extremity Strength Assessment Within Functional Limits OT- Coordination Assessment Upper Extremity Finger to Nose Test Left UE Impaired Comments Coordination Comments Initially left hand slightly off center and then 2nd attempt on target for tip of his nose. OT Sensation Assessment Comments Summary Comments Intact for light touch. M9 OT- IP Assessment and Plan Start: 02/14/21 16:46 Freq: Status: Active Protocol: Document 02/15/21 15:32 [facility] (Rec: 02/15/21 15:40 [facility] [id number]) OT Summary Assessment and Plan Potential Rehabilitation Potential Good Analytic Complexity at Evaluation Moderate Summary OT Impairments Pain,Balance,Functional Cognition,Functional Mobility, Grooming,Dressing,Toileting, Bathing,Toilet Transfers, Shower Transfers,Activity Tolerance Progress Towards Goals Slow Progress due to Medical Issues,Slow Progress due to Activity Tolerance,Slow Progress due to Cognition Assessment Summary Pt to tired to shower at this time and not wanting to complete SLUMS after initiating with pt. Pt wanting to go home. However pending medical and physical needs would benefit from short skilled rehab prior to going home. If going home pt will requires assist at home. Pt lives alone. Goals Grooming Goal Independent Dressing Goal Independent Toileting Goal Independent Bathing Goal Independent Toilet Transfer Goal Independent Shower Transfer Goal Independent Patient/Caregiver Education Goal Demonstrate Energy Conservation and Pacing Days to Meet Goals 14 Frequency of Treatment Frequency Of Treatment Once a Day Treatment Plan OT Treatment Plan ADL Training,Functional Cognition Training,Functional Mobility,Patient/Family Education,Discharge Planning Other Treatment Recommendations and Next shower Treatment Focus Discharge Recommendations OT Discharge Recommendations SNF Rehab Transportation Needs at Discharge Wheelchair/Cabulance
--- NOTE | 2021-02-15 17:52 | PM.PN.1 ---
Subjective Subjective Date Patient Seen: 02/15/21 Interval history: Patient is sitting in a chair without complaints. However he was noted to be hypoxic today with a O2 sat of 88-89% on room air. He was placed back on oxygen. He continues to have difficulty getting up out of a chair. However once he is up he is able to ambulate without difficulty. Patient does have known sleep apnea and does not use his CPAP machine. He continues to have difficulty with memory. Exam Vital Signs (past 8 hours): - 02/15/21 12:00 Temperature 97.0 F L Pulse Rate 75 Respiratory Rate 14 Blood Pressure 126/61 Pulse Oximetry 95 Oxygen Delivery Method Nasal Cannula Oxygen Flow Rate 0 Narrative Exam Narrative: Elderly gentleman in a chair in no obvious distress Lungs: Decreased breath sounds but no wheezes rhonchi or crackles Cardiac exam: Regular rate and rhythm normal S1-S2 Abdomen soft nontender nondistended Extremity 1+ edema bilaterally Objective Labs Result Diagrams: 02/14/21 04:55 02/14/21 04:55 [facility] Medical History Acquired hypothyroidism (09/16/16) Actinic keratosis Basal cell carcinoma 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) Bilateral knee pain Colon polyps CVA (cerebral vascular accident) Depression (06/29/15) Erectile dysfunction (02/12/16) Essential hypertension (06/29/15) Gout Hemorrhoids Hyperlipemia Hyperthyroidism Insomnia Obstructive sleep apnea Osteoarthritis Primary insomnia (09/16/16) Squamous cell carcinoma Surgical History History of ectropion repair (10/2017) Hx of surgical procedure Family History Family/Other Unknown family medical history Social History household members: family Smoking Status: Former smoker Assessment & Plan Assessment & Plan narrative: 1. Acute respiratory failure likely multifactorial -patient with community-acquired pneumonia -agree with ceftriaxone, will add azithromycin -continue oxygen for O2 sat of 88% -patient with known sleep apnea but noncompliant with treatment 2. Confusion, no evidence of stroke -MRI negative for stroke 3. Hypertension -continue usual home medication 4. Depression -continue usual meds 5. GERD -continue PPI 6. Weakness, general -continue PT, patient likely will need skilled care before returning home 7. Dementia -chronic Quality Stroke Contraindication Not Initiating IV-Tpa: Not indicated Onset of Symptoms Date: 02/11/21 Symptom Onset Unknown: No Contraindication Antithromb by Day Two: Not indicated Rehab Services Assessed: Rehabilitation therapy VTE Deep Vein Thrombosis/Pulmonary Embolism Present on Admission: No
[2021-02-15] MEDS: TAMSULOSIN 0.4 MG CAPSULE PO (20:57)
[2021-02-15] MEDS: AZITHROMYCIN 250 MG TABLET 500 MG PO (20:57)
[2021-02-15] MEDS: cefTRIAXone 1,000 MG in SODIUM CHLORIDE 0.9% 100 ML 200 ML IV (23:54)
[2021-02-16 00:10] VITALS: BP 120/74; PULSE 63; RESP 18; TEMP 36.3; O2SAT 96
[2021-02-16 04:10] VITALS: BP 122/62; PULSE 66; RESP 16; TEMP 36.4; O2SAT 92
[2021-02-16 07:00] VITALS: O2SAT 95
[2021-02-16 08:00] VITALS: BP 126/57; PULSE 70; RESP 16; TEMP 36.5; O2SAT 93
[2021-02-16 09:08] LABS: Hematocrit 31.6 % (41-53); Hemoglobin 10.1 g/dL (13.5-17.5); Mean Corpuscular HGB Conc 31.9 % (30-36); Mean Corpuscular Hemoglobin 25.2 PG (26-34); Mean Corpuscular Volume 78.8 fL (80-100); Platelet Count 306 X10^3/uL (150-400); Red Blood Cell Count 4.01 X10^6/uL (4.5-5.9); Red Cell Distribution Width 19.2 % (11.6-14.8); White Blood Cell Count 7.9 X10^3/uL (4.5-11.0)
[2021-02-16] MEDS: AMLODIPINE 5 MG TABLET 10 MG PO (09:08)
[2021-02-16] MEDS: atenoloL 50 MG TABLET PO (09:08)
[2021-02-16] MEDS: DULOXETINE 20 MG CAPSULE PO (09:08)
[2021-02-16] MEDS: AZITHROMYCIN 250 MG TABLET PO (09:08)
[2021-02-16] MEDS: allopurinoL 100 MG TABLET PO (09:08)
[2021-02-16] MEDS: PANTOPRAZOLE DR 40 MG TABLET PO (09:09)
[2021-02-16] MEDS: SODIUM CHLORIDE 0.9% FLUSH 10 ML IV (09:09)
[2021-02-16 09:20] LABS: BUN Creatinine Ratio 33.3 (6-22); Blood Urea Nitrogen 29 mg/dL (9-20); Calcium 9.6 mg/dL (8.4-10.2); Carbon Dioxide 31 mmol/L (22-32); Chloride 101 mmol/L (98-107); Estimated Glomerular Filt Rate > 60.0 mL/min (>60); Glucose 109 mg/dL (80-110); HEMOLYSIS < 15 (0-50); Potassium 4.1 mmol/L (3.4-5.1); Sodium 137 mmol/L (137-145)
--- NOTE | 2021-02-16 10:04 | PC.NURSE ---
Addendum entered by Tabby Zaragoza R.N. 02/16/21 12:45: Patients daughter bedside, both patient and family agree to transfer to designated facility. Patient eager to leave, IV discontinued. Patient tolerated. Patient assisted to wheelchair with minimal assistance. Belongings given to daughter and facility designee. Report called to [facility]. Addendum entered by Tabby Zaragoza R.N. 02/16/21 11:55: Informed by Case Management patient has transport time of 1215. MD aware. Patient aware. Attempted to contact both daughters, neither answered. Will continue to call. Covid swab collected. Patient tolerated. Patient belongings gathered. Will wait to d/c IV until orders are in. Original Note: Patient resting in chair this AM. Tolerating breakfast. Lungs CTA except in RLL, fine crackles noted. Patient 97% on RA at this moment. Denies SOB or increased WOB. Intermittent cough noted, productive, scant clear sputum. VSS. Ambulating using FWW, 1P assist. Bilateral 3+ pitting edema noted in ankles and feet. Patient denies pain at this time. Is eager to determine discharge plan at this time. Reassured patient. Chair alarm on. Patient refuses SCD's. Call light in reach.
--- NOTE | 2021-02-16 11:25 | OT.IPNOTE ---
Pt not wanting to get up to wash up or shower at this time for OT treatment.
--- NOTE | 2021-02-16 11:41 | PT.IPTN ---
Current Diagnoses Pneumonia, unspecified organism (02/13/21) Physical Therapy Treatment Note M2 PT-IP Current Condition Start: 02/14/21 14:19 Freq: NEEDED Status: Active Protocol: Document 02/15/21 10:31 [facility] (Rec: 02/15/21 10:49 [facility] [id number]) Physical Therapy Current Condition Current Condition Evaluation Date 02/14/21 Treatment Diagnosis pneumonia, generalized weakness, difficulty in walking, frequent falls Onset Date 02/12/21 Precautions Other Precautions falls M3 PT-IP Subjective Start: 02/14/21 14:19 Freq: NEEDED Status: Active Protocol: Document 02/16/21 11:31 [facility] (Rec: 02/16/21 12:11 [facility] [id number]) Subjective Physical Therapy Visit Type Type Treatment Note Visit Start Time 11:31 Visit Stop Time 11:41 Total Visit Minutes 10 Number of COUNCILPERSON Visits 2 Physical Therapy Visit Comments Patient Comments Pt required encouragement to get up and ambulate but did agree to do so. Patient Goals Pt hoping to go home. M4 PT-IP Mobility and Gait Start: 02/14/21 14:19 Freq: NEEDED Status: Active Protocol: Document 02/16/21 11:31 [facility] (Rec: 02/16/21 12:11 [facility] [id number]) PT-Transfer Assessment Sit to and From Stand Sit to and from Stand Contact Guard Assistance,1 Person Assistance,Use of Upper Extremities Equipment Transfer Assistive Device Gait Belt,Straight Cane Orthotic/Prosthetic Devices or Brace: No Transfers Transfer Destination Chair Transfer Technique Stand Step Pivot Transfer Ability Level of Assist Contact Guard Assistance Comments Mobility Comments Pt required CGA standing from chair, pt ambulated CGA towards door with SPC with LOB to left reaching out for door jam. Pt then ambulated around nurse station CGA refusing any further ambulation. Gait Assessment Gait Gait Assistance Required: Contact Guard Assist Distance (Feet) 150 Able to Maintain Weight Bearing Status Yes During Gait Assistive Devices Assistive Device Gait Belt,Straight Cane Orthotic/Prosthetic Devices or Brace: No Gait Deviations General Gait Pattern Decreased Stride Length, Decreased Feet Clearance, Flexed Trunk,Lateral Trunk Lean,Step-to Gait,Wide Based Gait Factors Limiting Gait Function Factors Limiting Gait Function Decreased Activity Tolerance, Decreased Strength,Limited Range of Motion,Pain,Poor Balance,Poor Safety Awareness M5 PT-IP Objective Assessments Start: 02/14/21 14:19 Freq: NEEDED Status: Active Protocol: Document 02/14/21 15:10 [facility] (Rec: 02/14/21 17:26 [facility] [id number]) Orientation Orientation/Cognition Level of Alertness Alert Orientation Name,Month,Place,Situation Language Function Ability Hard of Hearing Safety Awareness Decreased Safety Awareness Memory Description Short Term Impaired Gross Range of Motion Lower Extremity ROM Assessment Bilaterally Impaired Impairments AROM and PROM lacking TKE. Pt dorsiflexes only to neutral. Strength Lower Extremity Strength Assessment Bilaterally Impaired Hip 3+/5 Knee 4/5 Ankle 4/5 Comments Strength Comments No unilateral deficit on exam. Coordination Assessment Gross Coordination Gross Coordination WNL Assessment Finger to Nose Test Normal Performance Pronation/Supination Test Normal Performance Sensation Assessment Sensation Gross Sensation WNL Muscle Tone Muscle Tone WNL Yes Other Assessments Other Other Assessments SpO2 94% on 2L/min throughout treatment M6 PT-IP Treatment Start: 02/14/21 14:19 Freq: NEEDED Status: Active Protocol: Document 02/15/21 10:31 [facility] (Rec: 02/15/21 10:49 [facility] [id number]) Physical Therapy Treatment Education Education Provided Safety M7 PT-IP Assessment and Plan Start: 02/14/21 14:19 Freq: NEEDED Status: Active Protocol: Document 02/16/21 11:31 [facility] (Rec: 02/16/21 12:11 [facility] [id number]) PT Summary Assessment and Plan Potential Rehabilitation Potential Fair Status of Condition at Evaluation Evolving Summary Impairments ROM,Strength,Balance,Cognition ,Bed Mobility,Transfers,Gait, Activity Tolerance Assessment Summary Pt continues to require CGA for ambulation experiencing LOB x1 at start of gait. Pt required CGA for ~150ft with cues for posture and avoiding obstacles in stover. At this time pt will require CGA during ambulation for safety, pt lives alone and will require SNF rehab to increase strength for functional mobility. Goals Bed Mobility Goal Standby Assistance Transfer Goal Standby Assistance,Cane Gait Goal Standby Assistance,Cane Gait Distance 75 Other Goals - up/down 5 steps with B rails CGA Days to Meet Goals 8 Frequency of Treatment Frequency Of Treatment Once a Day Treatment Plan Physical Therapy Treatment Plan Bed Mobility Training,Transfer Training,Gait Training, Therapeutic Exercise,Balance Retraining,Discharge Planning, Hot or Cold Pack Precautions Other Precautions falls Recommendations To Nursing Amount of Assist Needed 1 Person Assist Discharge Recommendations PT Discharge Recommendations Home vs SNF Other Discharge Recommendations increased assist and HH if plan is for home Transportation Needs at Discharge Private Vehicle,Wheelchair/ [facility]
--- NOTE | 2021-02-16 11:45 | CM.DPNOTE ---
Addendum entered by Saranya Duong 02/16/21 12:42: Faxed meds to [facility] (see below). Faxed order, meds & covid result to Honey. Fax confirmation received. Saranya Duong CM Asst. Addendum entered by Saranya Duong 02/16/21 12:28: Honey from [facility] would like scripts faxed to their pharmacy [facility] [phone]. Saranya Duong CM Asst. Original Note: Honey from [facility] called to let us know they only have a slot of 1215 for pt. pickup. I told her this was okay (per nurse). Nurse coordinated order and med list with Dr. Piedra. Susanna will fill out PASRR. Nurse will order Covid swab test. I will fax to [facility] when everything is ready. Saranya Duong CM Asst.
[2021-02-16 12:06] LABS: COVID19 -Nasal RAPID Negative (Negative)
--- NOTE | 2021-02-16 17:00 | CM.DPNOTE ---
Addendum entered by LINDA Marquez 02/16/21 17:02: [facility] auth in place, auth # [id number] Original Note: DC Note DC to [facility] today. [facility] arranged for p/u at [phone]. Patient and Dtr Nessa made aware and agreeable. TA Mcnair aware and plans to call report. CONRAD Beaver assisting w/coordination. Completed and signed med list, RX, PASRR faxed. Med list faxed to [facility] per request. MCKENNA
--- NOTE | 2021-02-16 20:44 | P.DS_ITS ---
History of Present Illness History of Present Illness Chief complaint: Weakness Narrative: Venancio Mccall: Klever George is an 85-year-old male with a history of a CVA, essential hypertension, GERD, BPH, and mild dementia was sent over here via his daughter who lives close to him due to suspicion for having had a stroke. She states that this past Friday he seemed to be very lethargic and quite weak. She st ates that he sat in his walker after a lot of coaxing and then went to sit in a chair and was unable to get back. She states that he has been taking a long time to wake up he has always exhausted and noticed that he was also holding his coffee cup weirdly. Not able to actually hold it. She stated that she thought his speech was garbled. Today she was supposed to take him for a doctor's appointment at 2:30 a.m. and when he went to go get ready he did seem to be able to move much so she called 911 and had him brought here. In the emergency department they stated he had some dysarthria and they believe he had a CVA 2-[address] of the head ordered in the ED indicated ?Old right frontal infarct and old right basal ganglia lacunar infarct. Chest x-ray also done indicated patchy opacities bilaterally. Patient is afebrile, blood pressure 124/58, heart rate 82, respiratory rate 16, oxygen saturation of 97% on 2 L, he weighs 90.5 kg with a BMI of 30.2. WBC is 12.6, RBC 4.32, hemoglobin 10, hematocrit 31.9, platelet count 279, add a mildly elevated bicarb of 33 a and a BUN of 37, glucose was 134, proBNP was 628, UA culture was not indicated, and COVID-19 PCR was negative. ED NIH score was 2. He was initiated on IV pipercillin tazobactam in the ED. Of note, the patient was hospitalized at [facility] in October of this year for an upper GI bleed. He underwent endoscopy and was found to have a large gastric erosion with a large clot presumed from use of nonsteroidal anti- inflammatory use. Discharge Providers Provider Date of admission: 02/13/21 19:15 Discharge Date: 02/16/21 Primary care physician: Larry Roman MD Consults: 02/14/21 Consult to Occupational Therapy Evaluate & Treat Comment: Suspected CVA Physician Instructions: Evaluate and treat Consult to Physical Therapy Evaluate & Treat Comment: Suspected CVA, fatigue Physician Instructions: Evaluate and Treat Discharge provider: Severino Piedra MD Summary Hospital Course Discharge Diagnosis: 1. Acute respiratory failure secondary to presumed pneumonia 2. Chronic respiratory failure with NATTY not on CPAP 3. Encephalopathy, acute metabolic 4. Hypertension 5. Depression 6. GERD with history of GI bleed 7. Dementia 8. History of CVA 9. Schwannoma noted on MRI brain 10. Gout 11. Hypothyroid Hospital Course: Mr. George was initially admitted for lethargy and weakness. He was noted to have some difficulty holding his coffee cup. He came in to the hospital with concern for possible stroke. However MRI returned negative for stroke. And overall clinical picture appeared more consistent with encephalopathy, possibly from medications or infection. Chest xray showed bilateral opacities consistent with possible pneumonia, and he initially did have an elevated white count that improved with antibiotics. He did need oxygen during his stay for desaturation into the 80s, but on day of discharge had normal O2 saturation off oxygen. He will continued on antibiotics to complete a course of treatment. He will continue on lasix as he has mild lower extremity e brandt. His mental status improved and he was discharged to a correction facility. 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 In addition his brain angiogram showed stenosis of P2 segment of [employer] and 50% stenosis of left ICA. He was not on aspirin for now given his history of severe GI bleed, but this could be considered to be restarted. He was discharged on atorvastatin. Given his weakness he was discharged to SNF for physical therapy. Exam Vital Signs (past 8 hours): Oxygen Delivery Method Room Air Oxygen Flow Rate 0 Narrative Exam Narrative: GEN: no acute distress Lungs: Decreased breath sounds bilaterally, but no wheezes, rhonchi, rales Cardiac: Regular rate and rhythm with no murmurs Abdomen: soft nontender nondistended Extremity: 1+ edema bilaterally Objective Labs Result Diagrams: 02/16/21 08:56 02/16/21 08:56 Labs: Laboratory Results - last 24 hr 02/16/21 02/16/21 02/16/21 08:56 08:56 11:45 WBC 7.9 RBC 4.01 L Hgb 10.1 L Hct 31.6 L MCV 78.8 L MCH 25.2 L MCHC 31.9 RDW 19.2 H Plt Count 306 Sodium 137 Potassium 4.1 Chloride 101 Carbon Dioxide 31 BUN 29 H Creatinine 0.87 Estimated GFR > 60.0 BUN/Creatinine Ratio 33.3 H Glucose 109 Calcium 9.6 SARS-CoV-2 (PCR) Negative PFSH Medical History Acquired hypothyroidism (09/16/16) Actinic keratosis Basal cell carcinoma 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) Bilateral knee pain Colon polyps CVA (cerebral vascular accident) Depression (06/29/15) Erectile dysfunction (02/12/16) Essential hypertension (06/29/15) Gout Hemorrhoids Hyperlipemia Hyperthyroidism Insomnia Obstructive sleep apnea Osteoarthritis Primary insomnia (09/16/16) Squamous cell carcinoma Surgical History History of ectropion repair (10/2017) Hx of surgical procedure Family History Family/Other Unknown family medical history Social History household members: family Smoking Status: Former smoker Discharge Plan Discharge Plan Patient Disposition: SNF Provider Discharge Comment: Mr. George came in initially with concern for a stroke, but MRI showed no evidence of stroke. He was not started on aspirin as he has had gastrointestinal bleeding previously. He was given a statin. He also had evidence of pneumonia and was on antibiotics. He should continue them at his correction facility. He should also continue on lasix to make sure he is not retaining any liquid. He was off oxygen on discharge. He is discharged to [facility] for PT to get stronger. Discharge orders & Medications Prescriptions: New azithromycin [Zithromax Z-Horacio] 250 mg Tablet 250 mg PO DAILY Qty: 1 RF: 0 furosemide [Lasix] 20 mg tablet 20 mg PO DAILY Qty: 30 RF: 0 cefpodoxime 100 mg tablet 200 mg PO Q12H Qty: 10 RF: 0 atorvastatin 40 mg tablet 40 mg PO DAILY Qty: 30 RF: 0 Continued duloxetine 20 mg capsule,delayed release(DR/EC) 20 mg PO DAILY Qty: 90 RF: 1 amlodipine 10 mg tablet See Rx Instructions .ROUTE .COMPLEX Qty: 90 RF: 3 pantoprazole 40 mg tablet,delayed release (DR/EC) 40 mg PO BID Qty: 90 RF: 3 trazodone 100 mg tablet 100 mg PO BEDTIME Qty: 180 RF: 3 Adult Probiotic 3 billion cell Capsule 3,000 mmu cells PO DAILY RF: 0 allopurinol 100 mg tablet 100 mg PO DAILY RF: 0 atenolol 50 mg tablet 50 mg PO BID RF: 0 acetaminophen 650 mg Tablet 650 mg PO Q4H PRN (Reason: pain) RF: 0 tamsulosin [Flomax] 0.4 mg Capsule 0.4 mg PO BEDTIME RF: 0 famotidine 20 mg Tablet 20 mg PO BID RF: 0 cholecalciferol (vitamin D3) [Vitamin D3] 50 mcg (2,000 unit) Capsule 50 mcg PO DAILY RF: 0 hydrocodone-acetaminophen 5-325 mg Tablet 1 tab PO Q4HR PRN (Reason: Pain, Moderate (4-6)) Qty: 10 RF: 0 furosemide [Lasix] 20 mg tablet 20 mg PO DAILY Qty: 30 RF: 0 Discontinued levofloxacin 750 mg tablet 750 mg PO DAILY Qty: 5 RF: 0 No Action (DME) glucometer and test strips See Rx Instructions .Route .MEDSUPPLY Qty: 1 RF: 0 Follow up/Referrals: Larry Roman MD [Primary Care Provider] - Diet/Activity/Treatments Diet: Low-sodium Liquid consistency: Normal/Thin Food texture: Regular Diet comment: 2L fluid restriction Discharge Data Primary Care Provider: Larry Roman Quality Stroke Contraindication Not Initiating IV-Tpa: Not indicated Onset of Symptoms Date: 02/11/21 Symptom Onset Unknown: No Contraindication Antithromb by Day Two: Not indicated Rehab Services Assessed: Rehabilitation therapy VTE Deep Vein Thrombosis/Pulmonary Embolism Present on Admission: No MIPS - DC The patient has current or prior documentation of left ventricular ejection fraction (LVEF) less than 40%, or moderate or severely depressed left ventricular systolic function.: No
== END 2021-02-16 12:45 | DRG 193 ==
LOC: ED 19:07 → AC 19:15
PROVIDERS: Internal Medicine; Admitting Provider Nurse Practitioner Family; Emergency Provider Emergency Medicine; Family Provider Student in an Organized Health Care Education/Training Program; PCP Student in an Organized Health Care Education/Training Program; Referring Provider Emergency Medicine; Visit Provider Nurse Practitioner Family
DX: J18.9 Pneumonia, unspecified organism (principal); J96.01 Acute respiratory failure with hypoxia; G93.41 Metabolic encephalopathy; I10 Essential (primary) hypertension; K21.9 Gastro-esophageal reflux disease without esophagitis; G47.30 Sleep apnea, unspecified; F32.9 Major depressive disorder, single episode, unspecified; D33.3 Benign neoplasm of cranial nerves; R47.1 Dysarthria and anarthria; F03.90 Unspecified dementia, unspecified severity, without behavioral disturbance, psychotic disturbance, mood disturbance, and anxiety; N40.0 Benign prostatic hyperplasia without lower urinary tract symptoms; E03.9 Hypothyroidism, unspecified; Z87.891 Personal history of nicotine dependence; Z20.822 Contact with and (suspected) exposure to COVID-19
CPT/HCPCS: 36415; 36592; 70450; 70548; 70553; 71045; 80048; 80053; 80061; 81003; 81015; 82550; 83605; 83690; 83735; 83880; 84145; 84484; 85014; 85018; 85025; 85027; 87040; 87635; 93005; 93010; 94760; 96361; 96365; 97116; 97129; 97162; 97166; 97530; 99284; C9803; J0696; J2543

== ENCOUNTER 2021-11-01 22:36 | Inpatient (IN) | payer OTHER, SELFPAY ==
[2021-02-13 22:00] VITALS: BMI 30.2
[2021-11-01 22:43] VITALS: PULSE 81; RESP 31; O2SAT 80
[2021-11-01 22:45] VITALS: BP 100/53; PULSE 81; RESP 39; O2SAT 83
--- NOTE | 2021-11-01 22:45 | DI.RAD.S_ITS ---
PROCEDURE: XR CHEST 1V INDICATIONS: Shortness of breath, weakness TECHNIQUE: One view of the chest was acquired. COMPARISON: [facility], CR, XR CHEST 1V, 02/13/2021, 14:19. FINDINGS: Surgical changes and devices: None. Lungs and pleura: Patient is rotated towards the right. Mildly low lung volumes are seen with bibasilar atelectasis. There is mild prominence of the pulmonary vasculature. No pleural effusions or pneumothorax. Mediastinum: Mediastinal contours appear normal. Heart size is mildly enlarged. Bones and chest wall: No suspicious bony lesions. Overlying soft tissues appear unremarkable. IMPRESSION: Mildly low lung volumes with probable atelectasis versus consolidations at the lung bases, although the patient is moderately rotated. Mild prominence of the pulmonary vasculature is seen. Dictated by: Eduardo Kurtz M.D. on 11/01/2021 at 23:27 Approved by: Eduardo Kurtz M.D. on 11/01/2021 at 23:29
--- NOTE | 2021-11-01 22:45 | ED_ITS ---
HPI - SOB/Dyspnea General Chief Complaint: Shortness of Breath/Dyspnea Stated Complaint: GLF Time Seen by Provider: 11/01/21 22:43 History of Present Illness HPI Narrative: 86-year-old male former smoker with history of dementia, hypertension, hyperlipidemia, BPH is a full code and lives at home alone next door to his daughter. He presents by EMS for increased work of breathing and hypoxemia. He had been and what sounds like his normal state of health and had fallen and called his daughter who then called EMS to evaluate him. By the time EMS arrived he was already back up in his chair but there are evaluation found him to be short of breath with a initial oxygen at 82%. He was on 10 L during transport. He denies any injury and takes no blood thinners. He is a poor historian but denies any fever chills nor nausea, vomiting or diarrhea. Related Data Home Medications Medication Instructions Recorded Confirmed famotidine 20 mg tablet 20 mg PO BID 01/01/21 08/22/21 cholecalciferol (vitamin D3) 50 50 mcg PO DAILY 02/13/21 08/22/21 mcg (2,000 unit) capsule (Vitamin D3) Previous Rx's Medication Instructions Recorded amlodipine 10 mg tablet See Rx Instructions .ROUTE 01/12/21 .COMPLEX #90 tablet glucometer and test strips #1 ea 02/08/21 pantoprazole 40 mg tablet,delayed 40 mg PO BID #180 tab 08/28/21 release allopurinol 100 mg tablet 100 mg PO DAILY #90 tab 10/23/21 atenolol 50 mg tablet 50 mg PO BID #180 tab 10/23/21 duloxetine 20 mg capsule,delayed 20 mg PO DAILY #90 cap 10/23/21 release tamsulosin 0.4 mg capsule 0.4 mg PO BEDTIME #90 cap 10/23/21 Allergies Allergy/AdvReac Type Severity Reaction Status Date / Time No Known Drug Allergies Allergy Verified 08/22/21 15:20 Review of Systems Review of Systems Narrative: GENERAL: Denies chills, fatigue, malaise, fever, sweats. HEENT: Denies sinus pain, ear pain, sore throat, difficulty swallowing, dizziness. RESPIRATORY: See HPI CARDIOVASCULAR: Denies chest pain, palpitations, orthopnea, edema, GASTROINTESTINAL: Denies nausea, vomiting, abdominal pain, diarrhea, constipation, melena. : Denies dysuria, frequency, incontinence, hematuria, urinary retention. MUSCULOSKELETAL: denies weakness, joint pain, or bony pain SKIN: Denies rash, skin lesions, or other NEUROLOGIC: Denies weakness, headache, numbness, change in speech, confusion, se izures, incoordination. PSYCHIATRIC: No concerning psychosocial issues. 12 point review of systems is negative except for those stated above Patient History Medical History Acquired hypothyroidism (09/16/16) Actinic keratosis Basal cell carcinoma 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) Colon polyps CVA (cerebral vascular accident) Depression (06/29/15) Erectile dysfunction (02/12/16) Essential hypertension (06/29/15) Gout Hemorrhoids Hyperlipemia Insomnia Obstructive sleep apnea Osteoarthritis Primary insomnia (09/16/16) Squamous cell carcinoma Surgical History History of ectropion repair (10/2017) Hx of surgical procedure Family History Family/Other Unknown family medical history Social History household members: family Smoking Status: Former smoker Smoking Status: Former smoker tobacco type: cigarettes alcohol intake frequency: 0-2 drinks per day Alcohol type: hard liquor Substance Use Type: does not use Exam Narrative Exam Narrative: GENERAL: [86 year old patient appears stated age. Well-developed patient, in mild distress. Confused, GCS 14 HEAD: Atraumatic. Normocephalic. EYES: Pupils equal round and reactive. Extraocular motions intact. No scleral icterus. No injection or drainage. ENT: Nose without bleeding, purulent drainage. Throat without erythema, tonsillar hypertrophy or exudate. Airway patent. NECK: Trachea midline. Non tender CARDIOVASCULAR: Regular rate and rhythm without murmurs, gallops, or rubs. RESPIRATORY: Decreased breath sounds throughout with prolonged expiratory phase, faint wheezes noted in all zeng. No crackles, rales or rhonchi GASTROINTESTINAL: Abdomen soft, non-tender, nondistended. EXTREMITIES: No edema or joint tenderness. BACK: Nontender without deformity or crepitance. No flank tenderness. NEURO: Cranial nerves 2-12 grossly intact. SKIN: No rash or erythema of visible areas Initial Vital Signs Initial Vital Signs: Vital Signs Pulse Rate 81 11/01/21 22:43 Respiratory Rate 31 H 11/01/21 22:43 Pulse Oximetry 80 L 11/01/21 22:43 Course Course Course Narrative: Sepsis Guideline Compliance It is my opinion that the patient DOES in fact have a likely infectious etiology for meeting Sepsis Criteria. SIRS Criteria: [31 ] RR (2243) , [ 19.1] WBC (2240) Criteria for Severe Sepsis: [ ] Lactate > 2 [ ] BP < 90 [ x] Creat > 0.5 above baseline (2240) [ ] T. Bili > 2.0 [ ] No criteria for Severe Sepsis / Septic Shock in ED Time of Severe Sepsis / Septic Shock: [2240 ] Upon meeting sepsis criteria resuscitation according to Best Practice Statements and in accordance with this patient?s safety the following was initiated: Fluids: 30mL/kg of IV crystalloid fluid ordered to be given within the first 1 hour of meeting sepsis criteria. [ ] ABW used [x ] IBW (insert IBW) used due to BMI > 30 Antibiotics: IV antimicrobials be initiated as soon as possible after recognition and within one hour for both sepsis and septic shock Orders Ordered: ED Orders 11/01/21 22:02 Blood Culture Stat DD [D Dimer] Stat 11/01/21 22:40 CMP [Comprehensive Metabolic Panel] Stat Complete Blood Count AUTO DIFF Stat Lactate (Lactic Acid) Stat Magnesium Stat NT-proBNP (BNP-Adult 18+) Stat Procalcitonin Stat Troponin & CK Cardiac Panel Stat 11/01/21 22:42 COVID19 -Nasal swab/Pre-Proc Stat 11/01/21 22:44 Consult to Respiratory Therapy Evaluate & Treat EKG-12 Lead Stat 11/01/21 22:45 Chest [XR chest 1V] Stat 11/01/21 22:50 Respiratory Panel (Film Array) Stat 11/01/21 23:46 Arterial Blood Gas Stat 11/02/21 00:09 CT angio chest PE protocol Stat Sodium Chloride (Normal Saline 0.9%) 1,000 mls @ 150 mls/hr IV CONT BHAVIN Last Infusion: 11/01/21 23:43 Dose: 0 mls/hr Documented by: Admin: 11/01/21 23:09 Dose: 150 mls/hr Documented by: ANITA Lactated Ringer's (Lactated Ringers) 2,259 mls @ 753 mls/hr 30 ml/kg infuse over 3 hr (2259 ml) IV NOW ONE Stop: 11/02/21 02:27 Last Admin: 11/01/21 23:38 Dose: 753 mls/hr Documented by: ANITA Discontinued Medications Albuterol/Ipratropium (Albuterol/Ipratropium 3 Ml Ampul) 3 ml INH NOW ONE Stop: 11/01/21 22:44 Last Admin: 11/01/21 23:33 Dose: 3 ml Documented by: NICK Levofloxacin (Levaquin) 750 mg in 150 mls @ 100 mls/hr IV NOW ONE Stop: 11/02/21 00:58 Last Infusion: 11/02/21 01:07 Dose: 0 mls/hr Documented by: Admin: 11/01/21 23:38 Dose: 100 mls/hr Documented by: ANITA Methylprednisolone (Methylprednisolone 125 Mg/2 Ml Vial) 125 mg IV NOW ONE Stop: 11/01/21 22:44 Last Admin: 11/01/21 22:55 Dose: 125 mg Documented by: HARSHIL Vital Signs Vital signs: Vital Signs - 8 hr 11/01/21 22:43 11/01/21 22:45 11/01/21 22:48 Temperature 99.4 F Pulse Rate 81 81 80 Respiratory Rate 31 H 39 H 30 H Blood Pressure 100/53 L 100/53 L Pulse Oximetry 80 L 83 L 82 L 11/01/21 23:00 11/01/21 23:30 11/01/21 23:33 Temperature Pulse Rate 79 78 79 Respiratory Rate 46 H 42 H 46 H Blood Pressure 96/47 L 95/49 L Pulse Oximetry 93 93 94 11/02/21 00:00 11/02/21 00:34 11/02/21 00:36 Temperature Pulse Rate 74 78 75 Respiratory Rate 36 H 38 H Blood Pressure 94/59 L 95/54 L Pulse Oximetry 92 91 89 L 11/02/21 01:00 11/02/21 01:01 11/02/21 01:02 Temperature Pulse Rate 74 75 73 Respiratory Rate 35 H 38 H 37 H Blood Pressure 85/47 L 87/55 L Pulse Oximetry 92 92 89 L 03/11/22 01:11 Temperature Pulse Rate 79 Respiratory Rate 39 H Blood Pressure 82/48 L Pulse Oximetry 87 L MDM - SOB/Dyspnea Lab Data Result diagrams: 11/01/21 22:40 11/01/21 22:40 Labs: Lab Results 11/01/21 11/01/21 11/01/21 Range/Units 22:02 22:40 22:40 WBC 19.1 H (4.5-11.0) X10^3/uL RBC 4.19 L (4.5-5.9) X10^6/uL Hgb 11.2 L (13.5-17.5) g/dL Hct 34.6 L (41-53) % MCV 82.4 (80-100) fL MCH 26.8 (26-34) PG MCHC 32.5 (30-36) % RDW 18.4 H (11.6-14.8) % Plt Count 156 (150-400) X10^3/uL Neut % (Auto) 89.1 H (50-75) % Lymph % (Auto) 4.8 L (25-40) % Whitley % (Auto) 5.9 (3-14) % Eos % (Auto) 0.0 L (2-4) % Baso % (Auto) 0.2 (0-2) % Neut # (Auto) 73797 H (2495-6230) /uL Lymph # (Auto) 900 L (2878-1292) /uL Whitley # (Auto) 1100 H (0-900) /uL Eos # (Auto) 0 (0-450) /uL Baso # (Auto) 0 (0-100) /uL D-Dimer 753 H (<230) ng/mL ABG pH (7.35-7.45) ABG pCO2 (35-45) mmHg ABG pO2 (80-100) mmHg ABG HCO3 (22-26) mmol/L ABG Total CO2 (21-31) mmol/L ABG O2 Saturation (95-100) % ABG Base Excess (-2-2) mmol/L FiO2 Sodium Cancelled Potassium Cancelled Chloride Cancelled Carbon Dioxide Cancelled BUN Cancelled Creatinine Cancelled Estimated GFR Cancelled BUN/Creatinine Ratio Cancelled Glucose Cancelled Lactate (0.7-2.1) mmol/L Calcium Cancelled Magnesium 1.8 (1.6-2.3) mg/dL Total Bilirubin (0.2-1.3) mg/dL AST (17-59) IU/L ALT (<50) IU/L Alkaline Phosphatase (38-126) U/L Total Creatine Kinase 48 L (55-170) U/L CK-MB (CK-2) TNP CK-MB (CK-2) Rel Index TNP Troponin I 0.012 (0.01-0.034) ng/mL NT-Pro-B Natriuret Pep (<450) pg/mL Total Protein (6.3-8.2) g/dL Albumin (3.5-5.0) g/dL Globulin (1.7-4.1) g/dL Albumin/Globulin Ratio (1.0-2.8) Procalcitonin (<0.5) ng/mL Chlamy pneumoniae PCR (Not Detect) Adenovirus (PCR) (Not Detect) B. pertussis DNA (PCR) (Not Detecte) B.parapertussis DNA PCR (Not Detecte) Coronavirus OC43 (PCR) (Not Detect) Coronavirus HKU1 (PCR) (Not Detect) Coronavirus 229E (PCR) (Not Detect) SARS-CoV-2 (PCR) (Negative) Coronavirus NL63 (PCR) (Not Detect) Human Metapneumovir PCR (Not Detect) Influenza Type A (PCR) (Not Detect) Influenza Type B (PCR) (Not Detect) M. pneumoniae (PCR) (Not Detect) Parainfluenza 1 (PCR) (Not Detect) Parainfluenza 2 (PCR) (Not Detect) Parainfluenza 3 (PCR) (Not Detect) Parainfluenza 4 (PCR) (Not Detect) RSV (PCR) (Not Detect) Entero/Rhino (PCR) (Not Detect) 11/01/21 11/01/21 11/01/21 Range/Units 22:40 22:40 22:42 WBC (4.5-11.0) X10^3/uL RBC (4.5-5.9) X10^6/uL Hgb (13.5-17.5) g/dL Hct (41-53) % MCV (80-100) fL MCH (26-34) PG MCHC (30-36) % RDW (11.6-14.8) % Plt Count (150-400) X10^3/uL Neut % (Auto) (50-75) % Lymph % (Auto) (25-40) % Whitley % (Auto) (3-14) % Eos % (Auto) (2-4) % Baso % (Auto) (0-2) % Neut # (Auto) (6290-0892) /uL Lymph # (Auto) (9516-3524) /uL Whitley # (Auto) (0-900) /uL Eos # (Auto) (0-450) /uL Baso # (Auto) (0-100) /uL D-Dimer (<230) ng/mL ABG pH (7.35-7.45) ABG pCO2 (35-45) mmHg ABG pO2 (80-100) mmHg ABG HCO3 (22-26) mmol/L ABG Total CO2 (21-31) mmol/L ABG O2 Saturation (95-100) % ABG Base Excess (-2-2) mmol/L FiO2 Sodium 134 L Potassium 4.8 Chloride 97 L Carbon Dioxide 34 H BUN 37 H Creatinine 1.88 H Estimated GFR 34.2 L BUN/Creatinine Ratio 19.7 Glucose 123 H Lactate 1.9 (0.7-2.1) mmol/L Calcium 8.8 Magnesium (1.6-2.3) mg/dL Total Bilirubin 0.6 (0.2-1.3) mg/dL AST 32 (17-59) IU/L ALT 18 (<50) IU/L Alkaline Phosphatase 84 (38-126) U/L Total Creatine Kinase (55-170) U/L CK-MB (CK-2) CK-MB (CK-2) Rel Index Troponin I (0.01-0.034) ng/mL NT-Pro-B Natriuret Pep 6510 H (<450) pg/mL Total Protein 7.4 (6.3-8.2) g/dL Albumin 3.6 (3.5-5.0) g/dL Globulin 3.8 (1.7-4.1) g/dL Albumin/Globulin Ratio 0.9 L (1.0-2.8) Procalcitonin 0.68 H (<0.5) ng/mL Chlamy pneumoniae PCR (Not Detect) Adenovirus (PCR) (Not Detect) B. pertussis DNA (PCR) (Not Detecte) B.parapertussis DNA PCR (Not Detecte) Coronavirus OC43 (PCR) (Not Detect) Coronavirus HKU1 (PCR) (Not Detect) Coronavirus 229E (PCR) (Not Detect) SARS-CoV-2 (PCR) Negative (Negative) Coronavirus NL63 (PCR) (Not Detect) Human Metapneumovir PCR (Not Detect) Influenza Type A (PCR) (Not Detect) Influenza Type B (PCR) (Not Detect) M. pneumoniae (PCR) (Not Detect) Parainfluenza 1 (PCR) (Not Detect) Parainfluenza 2 (PCR) (Not Detect) Parainfluenza 3 (PCR) (Not Detect) Parainfluenza 4 (PCR) (Not Detect) RSV (PCR) (Not Detect) Entero/Rhino (PCR) (Not Detect) 11/01/21 11/01/21 Range/Units 22:50 23:46 WBC (4.5-11.0) X10^3/uL RBC (4.5-5.9) X10^6/uL Hgb (13.5-17.5) g/dL Hct (41-53) % MCV (80-100) fL MCH (26-34) PG MCHC (30-36) % RDW (11.6-14.8) % Plt Count (150-400) X10^3/uL Neut % (Auto) (50-75) % Lymph % (Auto) (25-40) % Whitley % (Auto) (3-14) % Eos % (Auto) (2-4) % Baso % (Auto) (0-2) % Neut # (Auto) (4475-0253) /uL Lymph # (Auto) (7453-7360) /uL Whitley # (Auto) (0-900) /uL Eos # (Auto) (0-450) /uL Baso # (Auto) (0-100) /uL D-Dimer (<230) ng/mL ABG pH 7.30 L (7.35-7.45) ABG pCO2 66.2 H* (35-45) mmHg ABG pO2 84 (80-100) mmHg ABG HCO3 32 H (22-26) mmol/L ABG Total CO2 34 H (21-31) mmol/L ABG O2 Saturation 95 (95-100) % ABG Base Excess 6.0 H (-2-2) mmol/L FiO2 36 Sodium Potassium Chloride Carbon Dioxide BUN Creatinine Estimated GFR BUN/Creatinine Ratio Glucose Lactate (0.7-2.1) mmol/L Calcium Magnesium (1.6-2.3) mg/dL Total Bilirubin (0.2-1.3) mg/dL AST (17-59) IU/L ALT (<50) IU/L Alkaline Phosphatase (38-126) U/L Total Creatine Kinase (55-170) U/L CK-MB (CK-2) CK-MB (CK-2) Rel Index Troponin I (0.01-0.034) ng/mL NT-Pro-B Natriuret Pep (<450) pg/mL Total Protein (6.3-8.2) g/dL Albumin (3.5-5.0) g/dL Globulin (1.7-4.1) g/dL Albumin/Globulin Ratio (1.0-2.8) Procalcitonin (<0.5) ng/mL Chlamy pneumoniae PCR Not detected (Not Detect) Adenovirus (PCR) Not detected (Not Detect) B. pertussis DNA (PCR) Not detected (Not Detecte) B.parapertussis DNA PCR Not detected (Not Detecte) Coronavirus OC43 (PCR) Not detected (Not Detect) Coronavirus HKU1 (PCR) Not detected (Not Detect) Coronavirus 229E (PCR) Not detected (Not Detect) SARS-CoV-2 (PCR) Not detected (Negative) Coronavirus NL63 (PCR) Not detected (Not Detect) Human Metapneumovir PCR Not detected (Not Detect) Influenza Type A (PCR) Not detected (Not Detect) Influenza Type B (PCR) Not detected (Not Detect) M. pneumoniae (PCR) Not detected (Not Detect) Parainfluenza 1 (PCR) Not detected (Not Detect) Parainfluenza 2 (PCR) Not detected (Not Detect) Parainfluenza 3 (PCR) Not detected (Not Detect) Parainfluenza 4 (PCR) Not detected (Not Detect) RSV (PCR) Not detected (Not Detect) Entero/Rhino (PCR) Not detected (Not Detect) Imaging Data CT scan - chest: Radiologist's Impression: [address] [address] [address] Scan Report Signed Patient: Klever George MR#: [id number] : 1935 Acct:[id number] Age/Sex: 86 / M Date of Service: 11/02/21 Loc: ED Accession Number: [id number] ?? Procedure: CT angio chest PE protocol Ordering Provider: Renzo Morel D.O. PROCEDURE:? CT ANGIO CHEST PE PROTOCOL ? INDICATIONS:? Shortness of breath, hypoxemia, critical Dimer ? TECHNIQUE:? After the administration of intravenous contrast, 2 mm thick sections acquired from the pulmonary apices to the posterior costophrenic angles.? 3-dimensional maximum intensity projection (MIP) coronal and sagittal reformats were then acquired through the thorax.? For radiation dose reduction, the following was used:? automated exposure control, adjustment of mA and/or kV according to patient size.? ? COMPARISON:? [facility], CT, CT ANGIO CHEST PE PROTOCOL, 01/27/2021, 15:25. ? FINDINGS:? Image quality:? Excellent.? ? Pulmonary arteries:? Pulmonary arteries are normal in size, and demonstrate no intraluminal filling defects to suggest central pulmonary embolism.? ? Lungs and pleura:? There is atelectasis in the lung bases bilaterally.? No acute consolidation is seen.? No pleural effusions or pneumothorax.? Central and peripheral airways are patent.? ? Mediastinum:? Heart size is borderline, without pericardial effusion.? No mediastinal or hilar adenopathy.? Thoracic aorta is normal in caliber and enhancement.? Moderate aortic atherosclerotic calcifications.? Esophagus is normal in caliber, without hiatal hernia.? ? Bones and chest wall:? No suspicious bony lesions.? Degenerative changes are seen in the spine.? Thyroid is unremarkable.? No axillary or supraclavicular adenopathy.? ? Abdomen:? Visualized upper abdominal solid organs appear normal in the early arterial phase of enhancement.? ? IMPRESSION:? No acute pulmonary embolism.? No acute abnormality is seen in the chest. ? ? Dictated by: Eduardo Kurtz M.D. on 11/02/2021 at 0:41 ? ? Approved by: Eduardo Kurtz M.D. on 11/02/2021 at 0:47 ? Discharge Plan Departure Patient Disposition: Admitted As Inpatient Clinical Impression: Sepsis, Acute kidney injury, Acute respiratory failure with hypoxia and hypercarbia Prescriptions: No Action amlodipine 10 mg tablet See Rx Instructions .ROUTE .COMPLEX Qty: 90 3RF Dose Instruction: TAKE 1 TABLET BY MOUTH EVERY DAY Rx Instructions: TAKE 1 TABLET BY MOUTH EVERY DAY pantoprazole 40 mg tablet,delayed release (DR/EC) 40 mg PO BID Qty: 180 3RF Label Comments: 40 mg PO BID tamsulosin 0.4 mg capsule 0.4 mg PO BEDTIME Qty: 90 3RF duloxetine 20 mg capsule,delayed release(DR/EC) 20 mg PO DAILY Qty: 90 1RF atenolol 50 mg tablet 50 mg PO BID Qty: 180 1RF allopurinol 100 mg tablet 100 mg PO DAILY Qty: 90 1RF (DME) glucometer and test strips See Rx Instructions .Route .MEDSUPPLY Qty: 1 0RF Rx Instructions: As directed famotidine 20 mg Tablet 20 mg PO BID 0RF cholecalciferol (vitamin D3) [Vitamin D3] 50 mcg (2,000 unit) Capsule 50 mcg PO DAILY 0RF Referrals: Larry Roman MD [Family Provider] -
[2021-11-01 22:48] VITALS: BP 100/53; PULSE 80; RESP 30; TEMP 37.4; O2SAT 82; BMI 35.5
[2021-11-01] MEDS: methylPREDNISolone 125 MG/2 ML VIAL IV (22:55)
[2021-11-01 23:00] VITALS: BP 96/47; PULSE 79; RESP 46; O2SAT 93
[2021-11-01 23:00] LABS: Add Manual Diff / Slide Review NO; Basophils Absolute Auto 0 /uL (0-100); Basophils Percent Auto 0.2 % (0-2); Eosinophils Absolute Auto 0 /uL (0-450); Hematocrit 34.6 % (41-53); Hemoglobin 11.2 g/dL (13.5-17.5); Lymphocytes Absolute Auto 900 /uL (1100-4500); Lymphocytes Percent Auto 4.8 % (25-40); Mean Corpuscular HGB Conc 32.5 % (30-36); Mean Corpuscular Hemoglobin 26.8 PG (26-34); Mean Corpuscular Volume 82.4 fL (80-100); Monocytes Absolute Auto 1100 /uL (0-900); Monocytes Percent Auto 5.9 % (3-14); Neutrophils Absolute Auto 17000 /uL (1500-7000); Neutrophils Percent Auto 89.1 % (50-75); Platelet Count 156 X10^3/uL (150-400); Red Blood Cell Count 4.19 X10^6/uL (4.5-5.9); Red Cell Distribution Width 18.4 % (11.6-14.8); White Blood Cell Count 19.1 X10^3/uL (4.5-11.0)
[2021-11-01] MEDS: SODIUM CHLORIDE 0.9% 1,000 ML 150 ML IV (23:09)
[2021-11-01 23:10] LABS: Lactate (Lactic Acid) 1.9 mmol/L (0.7-2.1)
[2021-11-01 23:23] LABS: COVID19 -Nasal RAPID Negative (Negative)
[2021-11-01 23:30] VITALS: BP 95/49; PULSE 78; RESP 42; O2SAT 93
[2021-11-01 23:33] VITALS: PULSE 79; RESP 46; O2SAT 94
[2021-11-01] MEDS: ALBUTEROL/IPRATROPIUM 3 ML AMPUL INH (23:33)
[2021-11-01] MEDS: LACTATED RINGERS 2,259 ML 753 ML IV (23:38)
[2021-11-01] MEDS: levoFLOXacin 750 MG/150 ML PIGGYBACK 100 MG IV (23:38)
[2021-11-01 23:42] LABS: Creatine Kinase 48 U/L (55-170); Magnesium 1.8 mg/dL (1.6-2.3); Troponin I 0.012 ng/mL (0.01-0.034)
[2021-11-01 23:50] LABS: D Dimer 753 ng/mL (<230)
[2021-11-01 23:56] LABS: Alanine Aminotransferase 18 IU/L (<50); Albumin 3.6 g/dL (3.5-5.0); Albumin Globulin Ratio 0.9 (1.0-2.8); Alkaline Phosphatase 84 U/L (38-126); Aspartate Aminotransferase 32 IU/L (17-59); BUN Creatinine Ratio 19.7 (6-22); Bilirubin Total 0.6 mg/dL (0.2-1.3); Blood Urea Nitrogen 37 mg/dL (9-20); Calcium 8.8 mg/dL (8.4-10.2); Carbon Dioxide 34 mmol/L (22-32); Chloride 97 mmol/L (98-107); Estimated Glomerular Filt Rate 34.2 mL/min (>60); Globulin 3.8 g/dL (1.7-4.1); Glucose 123 mg/dL (80-110); HEMOLYSIS < 15 (0-50); Potassium 4.8 mmol/L (3.4-5.1); Sodium 134 mmol/L (137-145); Total Protein 7.4 g/dL (6.3-8.2)
[2021-11-02] VITALS (66 sets, daily range): BP systolic 68–126; BP diastolic 43–63; PULSE 65–91; RESP 13–46; TEMP 32–36.6; O2SAT 83–100; BMI 35.5
[2021-11-02 00:03] LABS: Fractionated Inspired Oxygen 36; HCO3 ABG 32 mmol/L (22-26); Oxygen Saturation ABG 95 % (95-100); PCO2 ABG 66.2 mmHg (35-45); PO2 ABG 84 mmHg (80-100); TCO2 ABG 34 mmol/L (21-31)
[2021-11-02 00:05] LABS: NT-proBNP (BNP-Adult 18+) 6510 pg/mL (<450)
[2021-11-02 00:09] LABS: Adenovirus Not Detected (Not Detect); B. parapertussis Not Detected (Not Detecte); Bordetella pertussis Not Detected (Not Detecte); Chlamydophila pneumoniae Not Detected (Not Detect); Coronavirus 229E Not Detected (Not Detect); Coronavirus HKU1 Not Detected (Not Detect); Coronavirus NL 63 Not Detected (Not Detect); Coronavirus OC43 Not Detected (Not Detect); Human Metapneumovirus Not Detected (Not Detect); Human Rhinovirus/Enterovirus Not Detected (Not Detect); Influenza A Not Detected (Not Detect); Influenza B Not Detected (Not Detect); Mycoplasma pneumoniae Not Detected (Not Detect); Parainfluenza Virus 1 Not Detected (Not Detect); Parainfluenza Virus 2 Not Detected (Not Detect); Parainfluenza Virus 3 Not Detected (Not Detect); Parainfluenza Virus 4 Not Detected (Not Detect); Respiratory Syncytial Virus Not Detected (Not Detect); SARS- CoV-2 Not Detected (Not Detecte)
--- NOTE | 2021-11-02 00:09 | DI.CT.S_ITS ---
PROCEDURE: CT ANGIO CHEST PE PROTOCOL INDICATIONS: Shortness of breath, hypoxemia, critical Dimer TECHNIQUE: After the administration of intravenous contrast, 2 mm thick sections acquired from the pulmonary apices to the posterior costophrenic angles. 3-dimensional maximum intensity projection (MIP) coronal and sagittal reformats were then acquired through the thorax. For radiation dose reduction, the following was used: automated exposure control, adjustment of mA and/or kV according to patient size. COMPARISON: [facility], CT, CT ANGIO CHEST PE PROTOCOL, 01/27/2021, 15:25. FINDINGS: Image quality: Excellent. Pulmonary arteries: Pulmonary arteries are normal in size, and demonstrate no intraluminal filling defects to suggest central pulmonary embolism. Lungs and pleura: There is atelectasis in the lung bases bilaterally. No acute consolidation is seen. No pleural effusions or pneumothorax. Central and peripheral airways are patent. Mediastinum: Heart size is borderline, without pericardial effusion. No mediastinal or hilar adenopathy. Thoracic aorta is normal in caliber and enhancement. Moderate aortic atherosclerotic calcifications. Esophagus is normal in caliber, without hiatal hernia. Bones and chest wall: No suspicious bony lesions. Degenerative changes are seen in the spine. Thyroid is unremarkable. No axillary or supraclavicular adenopathy. Abdomen: Visualized upper abdominal solid organs appear normal in the early arterial phase of enhancement. IMPRESSION: No acute pulmonary embolism. No acute abnormality is seen in the chest. Dictated by: Eduardo Kurtz M.D. on 11/02/2021 at 0:41 Approved by: Eduardo Kurtz M.D. on 11/02/2021 at 0:47
[2021-11-02 00:13] LABS: Procalcitonin 0.68 ng/mL (<0.5)
[2021-11-02] MEDS: AZITHROMYCIN 500 MG in DEXTROSE 5% IN WATER 250 ML IV (01:34)
[2021-11-02] MEDS: MEROPENEM 1 GM in SODIUM CHLORIDE 0.9% 100 ML 200 ML IV ×2 (02:50→13:14)
--- NOTE | 2021-11-02 06:39 | PC.NURSE ---
Pt more awake and alert at this time, demanding to get out of bed, requesting to go outside to smoke. Assist to the chair, taken off of Bi-Pap, place on moist hi flow NC. BP cuff changed out due the cuff sliding off of the arm.
--- NOTE | 2021-11-02 08:00 | DI.RAD.S_ITS ---
PROCEDURE: XR CHEST 1V INDICATIONS: eval if worsening pneumonia TECHNIQUE: One view of the chest was acquired. COMPARISON: [facility], CT, CT ANGIO CHEST PE PROTOCOL, 11/02/2021, 0:15. [facility], CR, XR CHEST 1V, 11/01/2021, 22:53. FINDINGS: Surgical changes and devices: None. Lungs and pleura: Increased interstitial markings, concerning for pulmonary edema or atypical infectious process. No pleural effusions or pneumothorax. Mediastinum: Enlargement of the cardiomediastinal silhouette, exaggerated by technique. Bones and chest wall: No suspicious bony lesions. Overlying soft tissues appear unremarkable. IMPRESSION: Worsening pulmonary edema or infectious process. Dictated by: Narciso Haywood M.D. on 11/02/2021 at 8:40 Approved by: Narciso Haywood M.D. on 11/02/2021 at 8:46
[2021-11-02 08:06] LABS: PCO2 ABG 49.6 mmHg (35-45); pH ABG 7.36 (7.35-7.45)
[2021-11-02 08:07] LABS: HCO3 ABG 28 mmol/L (22-26); PO2 ABG 58 mmHg (80-100); TCO2 ABG 30 mmol/L (21-31)
[2021-11-02 08:08] LABS: Fractionated Inspired Oxygen 32; Oxygen Saturation ABG 89 % (95-100)
--- NOTE | 2021-11-02 08:38 | P.HP_ITS ---
History of Present Illness History of Present Illness Date Patient Seen: 11/02/21 Time Patient Seen: 02:00 Chief complaint: GLF Narrative: Mr. George is a 86M with PMH NATTY, dementia, HTN, HL, BPH, CVA, GERD with history of GI bleed, hypothyroid, who lives at home alone, but does have caregivers, and is sonia in by EMS for shortness of breath. He had been and what sounds like his normal state of health and had fallen.?When EMS arrived he was already back up in his chair and sat at 82%.? He was on 10 L during transport.? He denies any injury and takes no blood thinners.? He is a poor historian, and was confused initially on presentation to the ED. In the ED workup was done and vitals notable for tachypnea and hypoxemia. Patient developed hypotension in the ED, and IJ was attempted but unsuccessful. Labs notable for WBC 19.1, hgb 11.2, plt 156, na 134, creatinine 1.88. Lactate normal. Troponin negative. BNP 6510, procal 0.68. ABG showed pco2 in 60s. Re spiratory panel negative. Chest xray and CTA read as no acute process. He was placed on BIPAP for confused and hypercarbia. He was ordered for IV fluids and meropenem and admitted for further treatment. Family history negative for COPD Patient History Medical History Acquired hypothyroidism (09/16/16) Actinic keratosis Basal cell carcinoma 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) Colon polyps CVA (cerebral vascular accident) Depression (06/29/15) Erectile dysfunction (02/12/16) Essential hypertension (06/29/15) Gout Hemorrhoids Hyperlipemia Insomnia Obstructive sleep apnea Osteoarthritis Primary insomnia (09/16/16) Squamous cell carcinoma Surgical History History of ectropion repair (10/2017) Hx of surgical procedure Family & Social History Family History Family/Other Unknown family medical history Social History: household members family Safety & Behavioral: Feels Safe in Current Yes Environment Been Physically Hurt or No Threatened By a Person Tobacco & Substance use: Smoking Status Former smoker alcohol intake frequency 0-2 drinks per day Substance Use Type does not use Meds Home Medications and Allergies Home Medications Medication Instructions Recorded Confirmed Type famotidine 20 mg tablet 20 mg PO BID 01/01/21 08/22/21 History amlodipine 10 mg tablet See Rx Instructions .ROUTE 01/12/21 08/22/21 Rx .COMPLEX #90 tablet glucometer and test strips #1 ea 02/08/21 08/22/21 Rx cholecalciferol (vitamin D3) 50 50 mcg PO DAILY 02/13/21 08/22/21 History mcg (2,000 unit) capsule (Vitamin D3) pantoprazole 40 mg tablet,delayed 40 mg PO BID #180 tab 08/28/21 Rx release allopurinol 100 mg tablet 100 mg PO DAILY #90 tab 10/23/21 Rx atenolol 50 mg tablet 50 mg PO BID #180 tab 10/23/21 Rx duloxetine 20 mg capsule,delayed 20 mg PO DAILY #90 cap 10/23/21 Rx release tamsulosin 0.4 mg capsule 0.4 mg PO BEDTIME #90 cap 10/23/21 Rx Allergies Allergy/AdvReac Type Severity Reaction Status Date / Time No Known Drug Allergies Allergy Verified 08/22/21 15:20 Review of Systems Review of Systems Narrative: 14 systems reviewed and negative aside from what is noted in HPI Exam Vital Signs (past 8 hours): - 11/02/21 01:00 11/02/21 01:01 11/02/21 01:02 Pulse Rate 74 75 73 Respiratory Rate 35 H 38 H 37 H Blood Pressure 85/47 L 87/55 L Pulse Oximetry 92 92 89 L 11/02/21 01:11 11/02/21 01:20 11/02/21 01:30 Pulse Rate 79 72 71 Respiratory Rate 39 H 25 H Blood Pressure 82/48 L 97/50 L 88/51 L Pulse Oximetry 87 L 91 90 L 11/02/21 01:40 11/02/21 01:50 11/02/21 01:52 Pulse Rate 72 68 68 Respiratory Rate 31 H 35 H 36 H Blood Pressure 88/52 L 76/48 L 80/45 L Pulse Oximetry 91 90 L 89 L 11/02/21 01:54 11/02/21 02:00 11/02/21 02:14 Pulse Rate 68 71 70 Respiratory Rate 37 H 34 H 32 H Blood Pressure 80/48 L 82/50 L 85/48 L Pulse Oximetry 88 L 87 L 94 11/02/21 02:15 11/02/21 02:20 11/02/21 02:30 Pulse Rate 67 66 Respiratory Rate 19 29 H Blood Pressure 85/50 L 85/50 L 90/52 L Pulse Oximetry 92 84 L 11/02/21 02:45 11/02/21 03:00 11/02/21 03:15 Pulse Rate 66 67 66 Respiratory Rate 26 H 23 27 H Blood Pressure 78/43 L 85/50 L 86/63 L Pulse Oximetry 96 98 97 11/02/21 03:16 11/02/21 03:25 11/02/21 03:30 Pulse Rate 68 67 67 Respiratory Rate 33 H 18 15 Blood Pressure 86/63 L 97/57 L 96/57 L Pulse Oximetry 83 L 97 100 11/02/21 03:35 11/02/21 03:40 11/02/21 03:45 Pulse Rate 67 66 66 Respiratory Rate 20 27 H 18 Blood Pressure 90/54 L 89/52 L 87/55 L Pulse Oximetry 99 96 97 11/02/21 03:53 11/02/21 03:55 11/02/21 03:59 Pulse Rate 67 66 66 Respiratory Rate 13 21 14 Blood Pressure 86/54 L 88/54 L 85/54 L Pulse Oximetry 95 95 95 11/02/21 04:00 11/02/21 04:15 11/02/21 04:30 Pulse Rate 66 67 71 Respiratory Rate 20 17 26 H Blood Pressure 83/51 L 86/54 L Pulse Oximetry 95 94 88 L 11/02/21 04:31 11/02/21 04:35 11/02/21 04:45 Pulse Rate 72 70 67 Respiratory Rate 33 H 29 H 25 H Blood Pressure 68/45 L 94/53 L 86/49 L Pulse Oximetry 88 L 97 96 11/02/21 05:00 11/02/21 05:15 11/02/21 05:30 Pulse Rate 67 67 66 Respiratory Rate 25 H 26 H 21 Blood Pressure 89/55 L 90/54 L 88/55 L Pulse Oximetry 95 93 94 11/02/21 05:45 11/02/21 06:00 11/02/21 06:15 Pulse Rate 68 67 78 Respiratory Rate 22 24 38 H Blood Pressure 95/52 L 88/52 L 97/56 L Pulse Oximetry 92 97 95 11/02/21 06:30 11/02/21 06:31 11/02/21 06:35 Pulse Rate 80 79 79 Respiratory Rate 37 H 38 H 21 Blood Pressure 102/51 L Pulse Oximetry 94 92 93 11/02/21 07:00 11/02/21 07:07 11/02/21 07:16 Pulse Rate 82 79 78 Respiratory Rate 46 H 38 H 31 H Blood Pressure 126/59 L 95/50 L Pulse Oximetry 87 L 88 L 93 11/02/21 07:30 Pulse Rate 79 Respiratory Rate 36 H Blood Pressure 94/53 L Pulse Oximetry 89 L Fraction of Inspired Oxygen 40 Oxygen Delivery Method Nasal Cannula Oxygen Flow Rate 3 Narrative Exam Narrative: GEN: moderate respiratory distress, confused HEENT: moist mucous membranes, PERRL NECK: trachea midline, no JVD CV: regular rate and rhythm, no murmurs PULM: poor air movement bilaterally ABD: soft, nontender, nondistende, no organomeagly, normal bowel sounds EXT: warm and well perfused with 1+ pitting edema NEURO: confused, oriented x0, moving all extremities PSYCH: irritable Objective Labs Result Diagrams: 11/01/21 22:40 11/01/21 22:40 Labs: Laboratory Results - last 24 hr 11/01/21 11/01/21 11/01/21 22:02 22:40 22:40 WBC 19.1 H RBC 4.19 L Hgb 11.2 L Hct 34.6 L MCV 82.4 MCH 26.8 MCHC 32.5 RDW 18.4 H Plt Count 156 Neut % (Auto) 89.1 H Lymph % (Auto) 4.8 L Newberry % (Auto) 5.9 Eos % (Auto) 0.0 L Baso % (Auto) 0.2 Neut # (Auto) 17961 H Lymph # (Auto) 900 L Newberry # (Auto) 1100 H Eos # (Auto) 0 Baso # (Auto) 0 D-Dimer 753 H ABG pH ABG pCO2 ABG pO2 ABG HCO3 ABG Total CO2 ABG O2 Saturation ABG Base Excess FiO2 Sodium Cancelled Potassium Cancelled Chloride Cancelled Carbon Dioxide Cancelled BUN Cancelled Creatinine Cancelled Estimated GFR Cancelled BUN/Creatinine Ratio Cancelled Glucose Cancelled Lactate Calcium Cancelled Magnesium 1.8 Total Bilirubin AST ALT Alkaline Phosphatase Total Creatine Kinase 48 L CK-MB (CK-2) TNP CK-MB (CK-2) Rel Index TNP Troponin I 0.012 NT-Pro-B Natriuret Pep Total Protein Albumin Globulin Albumin/Globulin Ratio Procalcitonin Chlamy pneumoniae PCR Adenovirus (PCR) B. pertussis DNA (PCR) B.parapertussis DNA PCR Coronavirus OC43 (PCR) Coronavirus HKU1 (PCR) Coronavirus 229E (PCR) SARS-CoV-2 (PCR) Coronavirus NL63 (PCR) Human Metapneumovir PCR Influenza Type A (PCR) Influenza Type B (PCR) M. pneumoniae (PCR) Parainfluenza 1 (PCR) Parainfluenza 2 (PCR) Parainfluenza 3 (PCR) Parainfluenza 4 (PCR) RSV (PCR) Entero/Rhino (PCR) 11/01/21 11/01/21 11/01/21 22:40 22:40 22:42 WBC RBC Hgb Hct MCV MCH MCHC RDW Plt Count Neut % (Auto) Lymph % (Auto) Newberry % (Auto) Eos % (Auto) Baso % (Auto) Neut # (Auto) Lymph # (Auto) [place]berry # (Auto) Eos # (Auto) Baso # (Auto) D-Dimer ABG pH ABG pCO2 ABG pO2 ABG HCO3 ABG Total CO2 ABG O2 Saturation ABG Base Excess FiO2 Sodium 134 L Potassium 4.8 Chloride 97 L Carbon Dioxide 34 H BUN 37 H Creatinine 1.88 H Estimated GFR 34.2 L BUN/Creatinine Ratio 19.7 Glucose 123 H Lactate 1.9 Calcium 8.8 Magnesium Total Bilirubin 0.6 AST 32 ALT 18 Alkaline Phosphatase 84 Total Creatine Kinase CK-MB (CK-2) CK-MB (CK-2) Rel Index Troponin I NT-Pro-B Natriuret Pep 6510 H Total Protein 7.4 Albumin 3.6 Globulin 3.8 Albumin/Globulin Ratio 0.9 L Procalcitonin 0.68 H Chlamy pneumoniae PCR Adenovirus (PCR) B. pertussis DNA (PCR) B.parapertussis DNA PCR Coronavirus OC43 (PCR) Coronavirus HKU1 (PCR) Coronavirus 229E (PCR) SARS-CoV-2 (PCR) Negative Coronavirus NL63 (PCR) Human Metapneumovir PCR Influenza Type A (PCR) Influenza Type B (PCR) M. pneumoniae (PCR) Parainfluenza 1 (PCR) Parainfluenza 2 (PCR) Parainfluenza 3 (PCR) Parainfluenza 4 (PCR) RSV (PCR) Entero/Rhino (PCR) 11/01/21 11/01/21 11/02/21 22:50 23:46 07:39 WBC RBC Hgb Hct MCV MCH MCHC RDW Plt Count Neut % (Auto) Lymph % (Auto) Newberry % (Auto) Eos % (Auto) Baso % (Auto) Neut # (Auto) Lymph # (Auto) Newberry # (Auto) Eos # (Auto) Baso # (Auto) D-Dimer ABG pH 7.30 L 7.36 ABG pCO2 66.2 H* 49.6 H ABG pO2 84 58 L ABG HCO3 32 H 28 H ABG Total CO2 34 H 30 ABG O2 Saturation 95 89 L ABG Base Excess 6.0 H 3.0 H FiO2 36 32 Sodium Potassium Chloride Carbon Dioxide BUN Creatinine Estimated GFR BUN/Creatinine Ratio Glucose Lactate Calcium Magnesium Total Bilirubin AST ALT Alkaline Phosphatase Total Creatine Kinase CK-MB (CK-2) CK-MB (CK-2) Rel Index Troponin I NT-Pro-B Natriuret Pep Total Protein Albumin Globulin Albumin/Globulin Ratio Procalcitonin Chlamy pneumoniae PCR Not detected Adenovirus (PCR) Not detected B. pertussis DNA (PCR) Not detected B.parapertussis DNA PCR Not detected Coronavirus OC43 (PCR) Not detected Coronavirus HKU1 (PCR) Not detected Coronavirus 229E (PCR) Not detected SARS-CoV-2 (PCR) Not detected Coronavirus NL63 (PCR) Not detected Human Metapneumovir PCR Not detected Influenza Type A (PCR) Not detected Influenza Type B (PCR) Not detected M. pneumoniae (PCR) Not detected Parainfluenza 1 (PCR) Not detected Parainfluenza 2 (PCR) Not detected Parainfluenza 3 (PCR) Not detected Parainfluenza 4 (PCR) Not detected RSV (PCR) Not detected Entero/Rhino (PCR) Not detected Assessment & Plan Assessment & Plan narrative: Mr. George is an 86M who presents with respiratory failure secondary to presumed pneumonia and possible COPD found to be septic and ZAHRA. 1. Acute hypoxemic and hypercarbic respiratory failure from presumed pneumonia and possible COPD with severe sepsis -clinically appears to be pneumonia with leukocytosis, and elevated procalcitionin and hypoxemia -possibly not developed yet given patient's hypovolemia -patient did require bipap briely in ED due to hypercarbia -goal O2 is greater than 90% or greater -continue IV antibiotics with meropenem for now -repeat xray to evaluate if developing consolidation on imaging -severe sepsis from pneumonia with organ dysfunction with zahra and encephalopathy -patient's blood pressure improved with IV fluid resuscitation and improving mental status 2. Acute kidney injury due to hypovolemia and sepsis -initial creatinine on admission was 1.8 -did get fluid resuscitated in ED -repeat creatinine -keep stanton for monitoring urine output -may need further workup if creatinine is not improving with empiric fluids 3. Acute encephalopathy due to hypercarbic respiratory failure -treat infection as above -BIPAP as necessary for hypercarbia 4. Depression -continue duloxetine 5. GERD -continue protonix 6. Hypertension -hold atenolol 7. Dementia -chronic 8. 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 Quality MIPS - Admit I confirm the patient?s Advance Care Plan is present, Code status is documented, Surrogate decision maker is in patient?s record [If Yes, STOP here]: Yes
[2021-11-02 09:39] LABS: Add Manual Diff / Slide Review NO; Basophils Absolute Auto 0 /uL (0-100); Basophils Percent Auto 0.1 % (0-2); Eosinophils Absolute Auto 0 /uL (0-450); Hematocrit 34.9 % (41-53); Hemoglobin 10.9 g/dL (13.5-17.5); Lymphocytes Absolute Auto 400 /uL (1100-4500); Lymphocytes Percent Auto 2.3 % (25-40); Mean Corpuscular HGB Conc 31.3 % (30-36); Mean Corpuscular Hemoglobin 26.4 PG (26-34); Mean Corpuscular Volume 84.3 fL (80-100); Monocytes Absolute Auto 100 /uL (0-900); Monocytes Percent Auto 0.8 % (3-14); Neutrophils Absolute Auto 15200 /uL (1500-7000); Neutrophils Percent Auto 96.8 % (50-75); Platelet Count 148 X10^3/uL (150-400); Red Blood Cell Count 4.14 X10^6/uL (4.5-5.9); Red Cell Distribution Width 18.8 % (11.6-14.8); White Blood Cell Count 15.7 X10^3/uL (4.5-11.0)
[2021-11-02 09:45] LABS: Appearance Urine UA CLEAR; Bilirubin Urine UA NEGATIVE (NEGATIVE); Color Urine UA YELLOW; Glucose Urine UA NEGATIVE (Negative); Ketones Urine UA NEGATIVE (NEGATIVE); Leukocyte Esterase Urine UA TRACE (NEGATIVE); Nitrite Urine UA NEGATIVE (Negative); Occult Blood Urine UA 3+ (Negative); Protein Urine UA 1+ (Negative); Urobilinogen Urine UA 0.2 E.U./dL (0.2)
[2021-11-02] MEDS: HEPARIN 5,000 UNIT/ML VIAL 5000 UNIT SUBCUT ×2 (09:55→20:46)
[2021-11-02 09:57] LABS: BUN Creatinine Ratio 20.5 (6-22); Blood Urea Nitrogen 39 mg/dL (9-20); Calcium 8.7 mg/dL (8.4-10.2); Carbon Dioxide 30 mmol/L (22-32); Chloride 96 mmol/L (98-107); Estimated Glomerular Filt Rate 33.8 mL/min (>60); Glucose 126 mg/dL (80-110); HEMOLYSIS < 15 (0-50); Potassium 4.7 mmol/L (3.4-5.1); Sodium 133 mmol/L (137-145)
[2021-11-02 10:08] LABS: Bacteria Urine None Seen; Culture Indicated Urine Specimen Cultured; RBC Urine 5-10/HPF (0-5/HPF); Squamous Epithelial Cell Urine 0-1 /HPF (0-5/HPF); WBC Urine 5-10/HPF (0-5/HPF)
[2021-11-02 10:09] LABS: Hyaline Casts Urine 0-1/LPF
--- NOTE | 2021-11-02 10:13 | DI.US.S_ITS ---
PROCEDURE: US RENAL COMPLETE INDICATIONS: ZAHRA TECHNIQUE: Real-time scanning was performed of the kidneys and bladder, with image documentation. COMPARISON: None. FINDINGS: Kidneys: Kidneys are normal in size. Right kidney measures 15.2 cm long; left kidney measures 15.6 cm long. Right renal cortical thickness is 1.7 cm; left renal cortical thickness is 1.3 cm. Renal cortical echotexture is normal. No hydronephrosis or nephrolithiasis. No suspicious solid mass lesions. There are bilateral simple renal cysts. The largest right cyst measures 8.0 cm in diameter and the largest left cyst measures 6.1 cm in diameter. Bladder: A Todd catheter is in place and the bladder is decompressed. Miscellaneous: No free pelvic fluid. IMPRESSION: 1. No hydronephrosis. 2. Multiple bilateral simple renal cysts. Dictated by: Fawn Palam M.D. on 11/02/2021 at 12:43 Approved by: Fawn Palma M.D. on 11/02/2021 at 12:44
--- NOTE | 2021-11-02 10:56 | PT.IIE ---
Medical History (Last Reviewed 11/01/21 @ 22:47 by Renzo Morel DO) Acquired hypothyroidism (09/16/16) Actinic keratosis Basal cell carcinoma 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) Colon polyps CVA (cerebral vascular accident) Depression (06/29/15) Erectile dysfunction (02/12/16) Essential hypertension (06/29/15) Gout Hemorrhoids Hyperlipemia Insomnia Obstructive sleep apnea Osteoarthritis Primary insomnia (09/16/16) Squamous cell carcinoma Physical Therapy Inpatient Evaluation/Re-Eval M1 PT/OT-IP Prior Functional Status Start: 11/02/21 12:32 Freq: NEEDED Status: Active Protocol: Document 11/02/21 10:56 AB (Rec: 11/02/21 12:43 AB [id number]) Medical Review Prior Functional Status Medical History Reviewed Yes Communication able to make needs known Mobility and Gait pt stated that he is modified independent with all mobilities and ambulates without AD but occasionally ses a SPC or a 4WW for ambulation. Social History Household Members family,none Living Arrangements House Number of Floors (Floors) One Floor Number of Stairs To Enter/Railing? 5 steps wide rails to enter the house Home Environment High Toilet,Walk in Shower,Tub /Shower Home Equipment Four Wheel Walker,Straight Cane,Shower Seat with Backrest ,Grab Bars In Shower Additional Social History Comment pt has a caregiver that comes in once a week to assist him with groceries and meals M2 PT-IP Current Condition Start: 11/02/21 12:32 Freq: NEEDED Status: Active Protocol: Document 11/02/21 10:56 AB (Rec: 11/02/21 12:43 AB [email or web address]) Physical Therapy Current Condition Current Condition Evaluation Date 11/02/21 Treatment Diagnosis sepsis; respiratory failure; difficulty in walking Onset Date 11/02/21 M3 PT-IP Subjective Start: 11/02/21 12:32 Freq: NEEDED Status: Active Protocol: Document 11/02/21 10:56 AB (Rec: 11/02/21 12:43 AB [id number]) Subjective Physical Therapy Visit Type Type Initial Evaluation Visit Start Time 10:56 Visit Stop Time 11:25 Total Visit Minutes 29 Number of FUND MANAGER Visits 0 Physical Therapy Visit Comments Patient Comments agreeable to do PT M4 PT-IP Mobility and Gait Start: 11/02/21 12:32 Freq: NEEDED Status: Active Protocol: Document 11/02/21 10:56 AB (Rec: 11/02/21 12:43 AB [id number]) PT-Transfer Assessment Sit to and From Stand Sit to and from Stand Contact Guard Assistance,1 Person Assistance Equipment Transfer Assistive Device Gait Belt,Front Wheeled Walker Orthotic/Prosthetic Devices or Brace: No Comments Mobility Comments pt in the ER and awaiting transfer to acute floow. pt sitting on chair and agreed to do PT. completed sit to stand CGA and ambulated in room using FWW CGA to min A and cues. has increase lateral lean to the R. pt sat back on chair. positioned on chair. call light and table placed within reach. Gait Assessment Gait Gait Assistance Required: Contact Guard Assist,Minimum Assistance Distance (Feet) 10 Able to Maintain Weight Bearing Status Yes During Gait Assistive Devices Assistive Device Gait Belt,Front Wheeled Walker Orthotic/Prosthetic Devices or Brace: No Gait Deviations General Gait Pattern Antalgic,Flexed Trunk Factors Limiting Gait Function Factors Limiting Gait Function Decreased Activity Tolerance, Decreased Strength,Poor Balance PT-Balance Assessment Sitting Balance and Reactions Static Sitting Balance Ability Good Dynamic Sitting Balance Ability Fair Standing Balance and Reactions Static Standing Balance Ability Fair Dynamic Standing Balance Ability Fair Device Used FWW M5 PT-IP Objective Assessments Start: 11/02/21 12:32 Freq: NEEDED Status: Active Protocol: Document 11/02/21 10:56 AB (Rec: 11/02/21 12:43 AB [id number]) Orientation Orientation/Cognition Level of Alertness Alert Orientation Name,Place,Situation Safety Awareness Decreased Safety Awareness Gross Range of Motion Lower Extremity ROM Assessment Within Functional Limits Strength Lower Extremity Strength Hip 4-/5 Knee 4-/5 Coordination Assessment Gross Coordination Gross Coordination WNL Muscle Tone Muscle Tone WNL Yes M6 PT-IP Treatment Start: 11/02/21 12:32 Freq: NEEDED Status: Active Protocol: Document 11/02/21 10:56 AB (Rec: 11/02/21 12:43 AB [id number]) Physical Therapy Treatment Education Education Provided Safety M7 PT-IP Assessment and Plan Start: 11/02/21 12:32 Freq: NEEDED Status: Active Protocol: Document 11/02/21 10:56 AB (Rec: 11/02/21 12:43 AB [email or web address]) PT Summary Assessment and Plan Potential Rehabilitation Potential Fair Status of Condition at Evaluation Stable Summary Impairments Pain,ROM,Strength,Balance, Coordination,Sensation,Tone, Cognition,Bed Mobility, Transfers,Gait,Activity Tolerance Assessment Summary pt requiring CGA to min A and cues with ambulation. unable to tolerate much activity. pt lives alone and will require assistance at home. will continue to assess progress but at this time may require SNF rehab. Goals Bed Mobility Goal Independent Transfer Goal Independent,Front Wheeled Walker,Four Wheeled Walker Gait Goal Independent,Front Wheel Walker ,Four Wheel Walker Gait Distance 150 Other Goals improve ambulation using SPC/ without AD 200 ft mod I up.down 5 steps 1 rail SBA Days to Meet Goals 10 Frequency of Treatment Frequency Of Treatment Once a Day Treatment Plan Physical Therapy Treatment Plan Bed Mobility Training,Transfer Training,Gait Training, Therapeutic Exercise,Balance Retraining,Discharge Planning, Hot or Cold Pack,Neuromuscular Re-ed,Coordination Retraining ,Manual Therapy Precautions Other Precautions falls Recommendations To Nursing Amount of Assist Needed 1 Person Assist Discharge Recommendations PT Discharge Recommendations Home with 17/03 Assist Available,Home Health,SNF Rehab,Home vs SNF Transportation Needs at Discharge Private Vehicle,Wheelchair/ Cabulance
--- NOTE | 2021-11-02 11:09 | DI.ECHO.S_ITS ---
[facility] +---------+ [facility] +---------+ : : [address] : : : : [id number] : : : : Phone: [phone]+ Echocardiogram Report + + :Name: RANULFO MIN Study Date: 11/03/2021 Height: 71 in : :[facility] ReadingLocation: Weight: 255 lb: : Gender: Male BSA: 2.3 m2 : :: 1935 Age: 86 yrs : :Reason For Study: Dyspnea : :Ordering Physician: MAX : :BUCKY Performed By: Analy Yoder : :Referring: BUCKY SANTANA : + + Interpretation Summary Normal sinus rhythm. Normal LV size, wall thickness, wall motion and LV systolic function. EF is 55-60%. Moderate LA enlargement; otherwise normal chamber sizes. Trace AI in the setting of moderately dilated aortic root (4.6 cm diameter). Compared to prior study 01/02/2021 LA enlargement is new. Procedure: A two-dimensional transthoracic echocardiogram with color flow and Doppler was performed. The study quality was technically adequate. Comparison is made with the echocardiogram of 01/02/2021. The patient was in normal sinus rhythm during the exam. Left Ventricle: The left ventricle is normal in size and wall thickness. The ejection fraction is estimated to be 55-60%. Right Ventricle: The right ventricle is mildly dilated. Right ventricular systolic function is mildly reduced. Atria: The left atrium is moderately dilated. The right atrium is mildly dilated. There is no Doppler evidence for an interatrial shunt. Mitral Valve: The mitral valve is normal in structure and function. There is trace mitral regurgitation. Aortic Valve: The aortic valve is normal in structure and function. There is trace aortic regurgitation. Tricuspid Valve: The tricuspid valve is normal in structure and function. There is mild tricuspid regurgitation. The right ventricular systolic pressure is estimated to be at least 47 mmHg based on an estimated right atrial pressure of 15 mm Hg. Pulmonic Valve: The pulmonic valve is not well seen, but is grossly normal. There is a trace or physiologic amount of pulmonic regurgitation. Great Vessels: The aortic root is moderately dilated. The ascending aorta is normal in size. The pulmonary artery is not well visualized, but is probably normal size. The IVC is dilated (diameter is greater than 2.1 cm) and it collapses less than 50% with a sniff. This suggests a high right atrial pressure of 15 mm Hg. Pericardium/ Pleura There is no pericardial effusion. MMode/2D Measurements & Calculations LVIDd: 5.1 cm LVOT diam: 2.5 cm LVIDs: 3.8 cm Ao root diam: 4.6 cm FS: 25.4 % asc Aorta Diam: 3.8 cm IVSd: 0.97 cm LVPWd: 0.86 cm LV thurston. diameter/BSA (cm/m^2): 2.2 LV sys. diameter/BSA (cm/m^2): 1.6 LA A2 area: 25.4 cm2 RA long axis: 6.5 cm LA A4 area: 29.5 cm2 RA area: 24.9 cm2 LA length (vol): 6.9 cm RA vol: 80.9 ml LA vol: 92.7 ml RA : 34.6 ml/m2 LA vol index: 39.7 ml/m2 IVC diam: 2.3 cm RVD1 (basal): 4.7 cm TAPSE: 1.6 cm Doppler Measurements & Calculations Ao V2 max: 146.7 cm/sec LVOT Max Calvin: 92.2 cm/sec Ao V2 mean: 100.8 cm/sec LV V1 max P.4 mmHg Ao max P.6 mmHg LV V1 VTI: 24.2 cm Ao mean P.6 mmHg REINA(I,D): 3.9 cm2 Ao V2 VTI: 30.6 cm REINA(V,D): 3.1 cm2 sev ratio: 0.79 REINA indexed to BSA (cm^2/m^2): 1.7 MV E max calvin: 114.8 cm/sec TR max calvin: 281.0 cm/sec MV A max calvin: 92.2 cm/sec TR max P.6 mmHg MV E/A: 1.2 PA V2 max: 65.1 cm/sec Med Peak E' Calvin: 5.3 cm/sec PA V2 mean: 45.3 cm/sec E/E' med: 21.8 PA mean P.90 mmHg Lat Peak E' Calvin: 6.5 cm/sec PA Accel Time: 0.15 sec E/E' lat: 17.6 E/e' average: 19.7 MV P1/2t: 57.2 msec MV P1/2t max calvin: 115.5 cm/sec SV(LVOT): 119.9 ml MVA(P1/2t): 3.8 cm2 Electronically signed by: Radha Aleman M.D. on Reading Physician:11/03/2021 06:06 PM
--- NOTE | 2021-11-02 12:24 | PC.NURSE ---
Addendum entered by Imelda Tristan R.N. 11/02/21 12:46: Dr. Denny aware of the pt's status. Original Note: pt keeps pulling his cardiac leads off, pulling on stanton, hanging the stanton over the bedside table. standing up and moving around room, unsteady, pulling off oxygen at times too. Pt oxygen sats are 94 percent in bed.
[2021-11-02] MEDS: methylPREDNISolone 125 MG/2 ML VIAL 60 MG IV ×2 (13:14→23:25)
[2021-11-02] MEDS: SODIUM CHLORIDE 0.9% 1,000 ML 150 ML IV ×2 (13:40→21:02)
--- NOTE | 2021-11-02 15:15 | PC.NURSE ---
Rec'd pt to rm 230 via w/c at 1240. Pt arrived without O2 and with 2 SL PIVs. Pt is confused and attempting to leave the room because I have to go downstairs to look for my marlboro's. Pt is agreeable to remain in the w/c but declines to transfer to bed or chair in room. Unable to obtain admission weight. Pt states he does not intend to stay in the hospital for very long, You aren't going to take away my freedom. Provided reorientation and emotional support. Reported mental status to Dr. Pereyra and requested clarification of orders for monitoring devices, IVFs, and interventions that may increase his risk for falls. Discussed concerns for delerium and risk for elopement. Orders received to dc telemetry. Placed pt in room with view near RN station, chair alarm in place, non skid footwear. Meds sent to pharmacy. Belongings at bedside.
[2021-11-02 17:01] LABS: Creatinine Urine Random 135.4 mg/dL; Sodium Urine Random 6 mmol/L (30-90)
--- NOTE | 2021-11-02 17:15 | OT.IP.EVAL ---
Current Diagnoses Sepsis, unspecified organism (11/02/21) Past Medical History (Last Reviewed 11/01/21 @ 22:47 by Renzo Morel DO) Acquired hypothyroidism (09/16/16) Actinic keratosis Basal cell carcinoma 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) Colon polyps CVA (cerebral vascular accident) Depression (06/29/15) Erectile dysfunction (02/12/16) Essential hypertension (06/29/15) Gout Hemorrhoids History of ectropion repair (10/2017) Hx of surgical procedure Hyperlipemia Insomnia Obstructive sleep apnea Osteoarthritis Primary insomnia (09/16/16) Squamous cell carcinoma Surgical History (Last Reviewed 11/01/21 @ 22:47 by Renzo Morel DO) History of ectropion repair (10/2017) Hx of surgical procedure Occupational Therapy Inpatient Evaluation/Re-Eval M1 PT/OT-IP Prior Functional Status Start: 11/02/21 12:32 Freq: NEEDED Status: Active Protocol: Document 11/02/21 10:56 AB (Rec: 11/02/21 12:43 AB [id number]) Medical Review Prior Functional Status Medical History Reviewed Yes Communication able to make needs known Mobility and Gait pt stated that he is modified independent with all mobilities and ambulates without AD but occasionally ses a SPC or a 4WW for ambulation. Social History Household Members family,none Living Arrangements House Number of Floors (Floors) One Floor Number of Stairs To Enter/Railing? 5 steps wide rails to enter the house Home Environment High Toilet,Walk in Shower,Tub /Shower Home Equipment Four Wheel Walker,Straight Cane,Shower Seat with Backrest ,Grab Bars In Shower Additional Social History Comment pt has a caregiver that comes in once a week to assist him with groceries and meals M1 PT/OT-IP Prior Functional Status Start: 11/02/21 17:46 Freq: NEEDED Status: Active Protocol: Document 11/02/21 16:53 [facility] (Rec: 11/02/21 18:10 [facility] [id number]) Medical Review Prior Functional Status Medical History Reviewed Yes Communication able to make needs known Mobility and Gait pt stated that he is modified independent with all mobilities and ambulates without AD but occasionally ses a SPC or a 4WW for ambulation. Activities of Daily Living and IADL's Pt states able to do all his ADL's on his own and that his daughter or caregiver assist with meals, groceries, bills, medications and taking the trash out. Social History Household Members none Living Arrangements House Number of Floors (Floors) One Floor Number of Stairs To Enter/Railing? 5 steps with right rail to enter. Home Environment High Toilet,Walk in Shower Home Equipment Straight Cane,Shower Seat with Backrest,Grab Bars In Shower Additional Social History Comment Pt 's daughter lives around the corner to assist with IADL needs and have a caregiver come 1-2 times a week to assist with IADL needs. M2 OT-IP Current Condition Start: 11/02/21 17:46 Freq: Status: Active Protocol: Document 11/02/21 16:53 [facility] (Rec: 11/02/21 18:10 [facility] [id number]) Occupational Therapy Current Condition Current Condition Evaluation Date 11/02/21 Treatment Diagnosis Sepsis, respiratory failure Diagnosis Onset Date 11/02/21 M3 OT- IP Subjective and Pain Start: 11/02/21 17:46 Freq: Status: Active Protocol: Document 11/02/21 16:53 [facility] (Rec: 11/02/21 18:10 [facility] [id number]) OT- Subjective Occupational Therapy Visit Type Type Initial Evaluation Visit Start Time 16:53 Visit Stop Time 17:15 Total Visit Minutes 22 Occupational Therapy Visit Comments Patient Comments Pt agreed to get up to brush his teeth. Patient/Caregiver Goals To go home. OT Pain Assessment Pain When Pain Assessed At Rest Pain Present Pain Present Denied Pain M4 OT- IP ADL's Start: 11/02/21 17:46 Freq: Status: Active Protocol: Document 11/02/21 16:53 [facility] (Rec: 11/02/21 18:10 [facility] [id number]) OT [id number] Comments OT Self-Feeding Comments Not at meal time. OT ADL-Grooming General Evaluation Grooming Ability Standby Assistance Areas Needing Assistance Retrieving/Set-up of Grooming Items Comments OT Grooming Comments Pt not wanting to brush his hair and states usually puts his hands through his hair to comb it. OT ADL-Oral Care General Eval Oral Care Ability Standby Assistance Areas of Assistance Retrieving/Set-Up of Items Comments Oral Care Comments Pt able to rinse and brush his dentures while standing in front of the sink. OT ADL-Dressing Comments OT Dressing Comments Pt states wear slip on socks or barefooted at home. OT ADL-Toileting Comments OT Toileting Comments Pt has a stanton in place. OT ADL-Bathing Comments OT Bathing Comments Not performed. M5 OT- IP IADL's Start: 11/02/21 17:46 Freq: Status: Active Protocol: Document 11/02/21 16:53 [facility] (Rec: 11/02/21 18:10 [facility] [id number]) OT-Instrumental Activities of Daily Living Home Safety Awareness Awareness of Need for Assistance at Home Decreased Awareness Ability to Problem Solve Emergency Unable to Problem Solve Situations Medication Management Medication Management Caregiver Administers Money Management Money Management Caregiver Provides Assistance Meal Preparation Meal Preparation Caregiver Provides Assist Entry Level Management Entry Level Management Caregiver Provides Assist M6 OT- IP Functional Cognition Start: 11/02/21 17:46 Freq: Status: Active Protocol: Document 11/02/21 16:53 [facility] (Rec: 11/02/21 18:10 [facility] [id number]) Cognitive Factors Limiting Selfcare Function Cognitive Ability Level of Alertness Alert,Confusional State Patient Orientation Name Attention Span Ability Capable of Focused Attention, Unable to Sustain Attention Ability to Follow Commands Able to Follow One Step Commands with Increased Time, Able to Follow One Step Commands with Repetition Memory Description Short Term Impaired,Working Impaired Safety Awareness Underestimates Need for Assistance Problem Solving Ability Unable to Identify Errors, Needs Assist to Identify Solutions Cognitive Comments Cognitive Assessment Comments Pt thinking that he is home as looking for his toiletry bag. Pt having to urinate and trying to get to the bathroom and needing to remind him that he has a stanton in place. Pt needing education to for call light use. VC to keep the FWW in front of him as stanton bag attached there and also use for his balance. OT- Vision and Hearing OT- Vision Assessment Visual Acuity Glasses All The Time M7 OT- IP Mobility and Balance Start: 11/02/21 17:46 Freq: Status: Active Protocol: Document 11/02/21 16:53 [facility] (Rec: 11/02/21 18:10 [facility] [id number]) OT-Transfer Assessment Sit to and From Stand Sit to and from Stand Contact Guard Assistance Transfers Transfer Ability Contact Guard Assistance, Minimal Assistance Technique Transfer Destination Chair Transfer Technique Stand Step Pivot Devices Transfer Assistive Devices Gait Belt,Front Wheeled Walker Comments Mobility Comments Sit to stand CGA and able to use FWW. Pt not wanting to use the FWW and needing ANSHU for balance and assist for all cord management needs. OT- Balance Assessment Sitting Balance and Reactions Static Sitting Balance Ability Good Dynamic Sitting Balance Ability Fair Standing Balance and Reactions Static Standing Balance Ability Fair Dynamic Standing Balance Ability Poor M8 OT- IP Objective Assessments Start: 11/02/21 17:46 Freq: Status: Active Protocol: Document 11/02/21 16:53 [facility] (Rec: 11/02/21 18:10 [facility] [id number]) OT Gross Range of Motion Upper Extremity Range of Motion ROM Impairments RUE 0-120, LUE 0-100 shoulder flexion OT Strength Comments Strength Comments BUE 4+/5 t0 4/5 from proximal to distal. OT-Muscle Tone Assessment Muscle Tone WNL Yes M9 OT- IP Assessment and Plan Start: 11/02/21 17:46 Freq: Status: Active Protocol: Document 11/02/21 16:53 [facility] (Rec: 11/02/21 18:10 [facility] [id number]) OT Summary Assessment and Plan Potential Rehabilitation Potential Fair Analytic Complexity at Evaluation Moderate Summary OT Impairments Strength,Balance,Coordination, Functional Cognition, Functional Mobility,Grooming, Dressing,Toileting,Bathing, Toilet Transfers,Shower Transfers,Activity Tolerance Progress Towards Goals Slow Progress due to Medical Issues,Slow Progress due to Activity Tolerance,Slow Progress due to Cognition Assessment Summary Pt MOD complexity and main barriers are steps, balance, functional cognition and safety. Pt lives alone and would benefit from skilled rehab work on his activity tolerance as pt now on O2 and only able to tolerate minimal activity at this time. Goals Self-Feeding Goal Independent Grooming Goal Independent Dressing Goal Independent Toileting Goal Independent Bathing Goal Independent Toilet Transfer Goal Independent Shower Transfer Goal Independent Days to Meet Goals 15 Frequency of Treatment Frequency Of Treatment Once a Day Treatment Plan OT Treatment Plan ADL Training,Functional Cognition Training,Functional Mobility,Patient/Family Education,Discharge Planning Other Treatment Recommendations and Next SLUMS Treatment Focus Discharge Recommendations OT Discharge Recommendations SNF Rehab Transportation Needs at Discharge Wheelchair/Cabulance
--- NOTE | 2021-11-02 17:27 | DIET.CONS ---
Dietary Consultation Note Admission Date: 11/02/2021 01:44 Assessment: 86 y/o M presents with respiratory failure secondary to presumed pneumonia and possible COPD found to be septic and ZAHRA. RD consulted for MNA score. Per EMR MNA indicates unsure if there was wt loss, moderate food dec, and mild dementia. No weight loss indicated, however recent wt may not be accurate per staff notes. RN states she was unable to get a new wt. OT currently with pt. RD will try again at another time. Ht: 180.34 cm Wt: 115.666 kg BMI: 35.5 Last BM: 11/02/21 (11/02/21 14:15) MNA: 9 Celio Score: 17 Diet: 11/02/21 Breakfast Heart Healthy Diet Diet Modifications: Labs: RBC 4.14 X10^6/uL (4.5-5.9) L 11/02/21 08:47 Hgb 10.9 g/dL (13.5-17.5) L 11/02/21 08:47 Hct 34.9 % (41-53) L 11/02/21 08:47 Creatinine 1.90 mg/dL (0.66-1.25) H 11/02/21 08:47 Lactate 1.9 mmol/L (0.7-2.1) 11/01/21 22:40 NT-Pro-B Natriuret Pep 6510 pg/mL (<450) H 11/01/21 22:40 Electronically Signed by: Sharon Holland 11/02/21 17:27 Clinical Dietitian [address] [address]
[2021-11-02] MEDS: FAMOTIDINE 20 MG TABLET PO (20:46)
[2021-11-02] MEDS: TAMSULOSIN 0.4 MG CAPSULE PO (20:46)
[2021-11-02] MEDS: MELATONIN 3 MG TABLET 6 MG PO (20:47)
[2021-11-02] MEDS: ACETAMINOPHEN 325 MG TABLET 650 MG PO (20:47)
[2021-11-03] VITALS (7 sets, daily range): BP systolic 105–132; BP diastolic 56–66; PULSE 75–88; RESP 16–29; TEMP 36.1–36.6; O2SAT 85–95
[2021-11-03] MEDS: MEROPENEM 500 MG in SODIUM CHLORIDE 0.9% 100 ML 200 ML IV ×2 (00:50→09:08)
[2021-11-03] MEDS: AZITHROMYCIN 500 MG in DEXTROSE 5% IN WATER 250 ML IV (01:37)
[2021-11-03 05:13] LABS: BUN Creatinine Ratio 31.1 (6-22); Blood Urea Nitrogen 38 mg/dL (9-20); Calcium 8.8 mg/dL (8.4-10.2); Carbon Dioxide 30 mmol/L (22-32); Chloride 101 mmol/L (98-107); Estimated Glomerular Filt Rate 56.3 mL/min (>60); Glucose 146 mg/dL (80-110); HEMOLYSIS < 15 (0-50); Hematocrit 33.8 % (41-53); Hemoglobin 10.9 g/dL (13.5-17.5); Mean Corpuscular HGB Conc 32.2 % (30-36); Mean Corpuscular Hemoglobin 26.6 PG (26-34); Mean Corpuscular Volume 82.7 fL (80-100); Platelet Count 157 X10^3/uL (150-400); Potassium 4.5 mmol/L (3.4-5.1); Red Blood Cell Count 4.09 X10^6/uL (4.5-5.9); Red Cell Distribution Width 18.6 % (11.6-14.8); Sodium 135 mmol/L (137-145); White Blood Cell Count 17.5 X10^3/uL (4.5-11.0)
[2021-11-03] MEDS: SODIUM CHLORIDE 0.9% 1,000 ML 150 ML IV (05:28)
[2021-11-03 05:31] LABS: Procalcitonin 0.41 ng/mL (<0.5)
--- NOTE | 2021-11-03 06:46 | PC.NURSE ---
Shift Note-Patient dozed in the chair overnight, tried the bed, but said it is way too hard He is disoriented to place and time, but has been cooperative, chair alarm on, Tylenol and melatonin given at HS. > 92% on 2L NC, denies shortness of breath, VSS. Todd in place.
--- NOTE | 2021-11-03 08:54 | P.PN_ITS ---
Subjective Subjective Date Patient Seen: 11/03/21 Time Patient Seen: 15:25 Interval history: He is seen today to follow-up his congestive heart failure and pneumonia. He is no longer hypoxic and is doing quite well. His daughter just arrived from [place]. She reviews that he has been in [facility], [facility], [facility]. Each time he has been persuaded to go due to weakness. At this point he is refusing but his PT/OT evals are still pending. She will not be available to stay around to help him as [place] will be [place]. Exam Vital Signs (past 8 hours): - 11/03/21 04:00 Temperature 97.3 F L Pulse Rate 78 Respiratory Rate 19 Blood Pressure 105/56 L Pulse Oximetry 94 Fraction of Inspired Oxygen 40 Oxygen Delivery Method Nasal Cannula Oxygen Flow Rate 2 Narrative Exam Narrative: He is alert and oriented x3. No apparent distress. He is somewhat argumentative today. Heart is regular rate and rhythm without murmur Lungs are clear to auscultation bilaterally There is 2+ ankle edema bilaterally. Objective Labs Result Diagrams: 11/03/21 04:25 11/03/21 04:25 Labs: Laboratory Results - last 24 hr 11/02/21 11/02/21 11/02/21 08:47 08:47 08:47 WBC 15.7 H RBC 4.14 L Hgb 10.9 L Hct 34.9 L MCV 84.3 MCH 26.4 MCHC 31.3 RDW 18.8 H Plt Count 148 L Neut % (Auto) 96.8 H Lymph % (Auto) 2.3 L [place] % (Auto) 0.8 L Eos % (Auto) 0.0 L Baso % (Auto) 0.1 Neut # (Auto) 33352 H Lymph # (Auto) 400 L [place] # (Auto) 100 Eos # (Auto) 0 Baso # (Auto) 0 Sodium 133 L Potassium 4.7 Chloride 96 L Carbon Dioxide 30 BUN 39 H Creatinine 1.90 H Estimated GFR 33.8 L BUN/Creatinine Ratio 20.5 Glucose 126 H Calcium 8.7 Procalcitonin Urine Color Yellow Urine Appearance Clear Urine pH 5.0 Ur Specific [place] 1.010 Urine Protein 1+ H Urine Glucose (UA) Negative Urine Ketones Negative Urine Occult Blood 3+ H Urine Nitrate Negative Urine Bilirubin Negative Urine Urobilinogen 0.2 Ur Leukocyte Esterase Trace H Urine RBC 5-10/hpf H Urine WBC 5-10/hpf H Ur Squamous Epith Cells 0-1 /hpf Urine Bacteria None seen Hyaline Casts 0-1/lpf Ur Culture Indicated? Specimen cultured Ur Random Sodium Urine Creatinine Nasal Screen MRSA (PCR) 11/02/21 11/02/21 11/03/21 08:47 16:00 04:25 WBC RBC Hgb Hct MCV MCH MCHC RDW Plt Count Neut % (Auto) Lymph % (Auto) [place] % (Auto) Eos % (Auto) Baso % (Auto) Neut # (Auto) Lymph # (Auto) [place] # (Auto) Eos # (Auto) Baso # (Auto) Sodium Potassium Chloride Carbon Dioxide BUN Creatinine Estimated GFR BUN/Creatinine Ratio Glucose Calcium Procalcitonin 0.41 Urine Color Urine Appearance Urine pH Ur Specific [place] Urine Protein Urine Glucose (UA) Urine Ketones Urine Occult Blood Urine Nitrate Urine Bilirubin Urine Urobilinogen Ur Leukocyte Esterase Urine RBC Urine WBC Ur Squamous Epith Cells Urine Bacteria Hyaline Casts Ur Culture Indicated? Ur Random Sodium 6 L Urine Creatinine 135.4 Nasal Screen MRSA (PCR) Negative for mrsa 11/03/21 11/03/21 04:25 04:25 WBC 17.5 H RBC 4.09 L Hgb 10.9 L Hct 33.8 L MCV 82.7 MCH 26.6 MCHC 32.2 RDW 18.6 H Plt Count 157 Neut % (Auto) Lymph % (Auto) [place] % (Auto) Eos % (Auto) Baso % (Auto) Neut # (Auto) Lymph # (Auto) [place] # (Auto) Eos # (Auto) Baso # (Auto) Sodium 135 L Potassium 4.5 Chloride 101 Carbon Dioxide 30 BUN 38 H Creatinine 1.22 Estimated GFR 56.3 L BUN/Creatinine Ratio 31.1 H Glucose 146 H Calcium 8.8 Procalcitonin Urine Color Urine Appearance Urine pH Ur Specific [place] Urine Protein Urine Glucose (UA) Urine Ketones Urine Occult Blood Urine Nitrate Urine Bilirubin Urine Urobilinogen Ur Leukocyte Esterase Urine RBC Urine WBC Ur Squamous Epith Cells Urine Bacteria Hyaline Casts Ur Culture Indicated? Ur Random Sodium Urine Creatinine Nasal Screen MRSA (PCR) [facility] Medical History Acquired hypothyroidism (09/16/16) Actinic keratosis Basal cell carcinoma 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) Colon polyps CVA (cerebral vascular accident) Depression (06/29/15) Erectile dysfunction (02/12/16) Essential hypertension (06/29/15) Gout Hemorrhoids Hyperlipemia Insomnia Obstructive sleep apnea Osteoarthritis Primary insomnia (09/16/16) Squamous cell carcinoma Surgical History History of ectropion repair (10/2017) Hx of surgical procedure Family History Family/Other Unknown family medical history Social History household members: none Smoking Status: Former smoker Assessment & Plan Assessment & Plan narrative: Mr. George is an 86M who presents with respiratory failure secondary to presumed pneumonia and possible COPD found to be septic and in ZAHRA. He is much more alert and energetic. He is somewhat cantankerous. He continue on broad spectrum antibiotics with meropenem. He continues on azithromycin and steroids. 1. Acute hypoxemic and hypercarbic respiratory failure from pneumonia and COPD with severe sepsis -patient did require bipap briely in ED due to hypercarbia -continue IV antibiotics with Azithromycin and Cefdinir after stopping meropenem when lost IV access -patient's blood pressure improved with IV fluid resuscitation and improving mental status -he is insisting on going home today despite having no transportation and still needing oxygen. Family are requesting fpc facility placement. -white blood count remains high at 17.5 on 11/03. 2. Acute kidney injury due to hypovolemia and sepsis -initial creatinine on admission was 1.8 -fluid resuscitated in ED -repeat creatinine 11/03 1.22 -keep stanton for monitoring urine output 3. Acute encephalopathy due to hypercarbic respiratory failure -treat infection as above -BIPAP as necessary for hypercarbia 4. Depression -continue duloxetine 5. GERD -continue protonix 6. Hypertension -hold atenolol 7. Dementia -chronic 8. BPH -hold flomax due to hypotension Disposition: The patient's daughter is requesting that he be sent to [facility] where he has had success in the past with rehabilitation. PT/OT eval and persuasion of the patient are still necessary. CODE: Diagnostics Tech Spent With Patient Critical Care time: I spent a total of [] minutes of critical care time on this patient's care to day; this time is exclusive of procedural time.
[2021-11-03] MEDS: DULOXETINE 20 MG CAPSULE PO (09:11)
[2021-11-03] MEDS: HEPARIN 5,000 UNIT/ML VIAL 5000 UNIT SUBCUT ×2 (09:11→20:00)
[2021-11-03] MEDS: PANTOPRAZOLE DR 40 MG TABLET PO (09:14)
[2021-11-03] MEDS: FAMOTIDINE 20 MG TABLET PO (10:54)
[2021-11-03] MEDS: CEFDINIR 300 MG CAPSULE PO ×2 (10:55→20:01)
--- NOTE | 2021-11-03 12:05 | OT.IPNOTE ---
Attempted to see pt for OT treatment and pt refusing to do any grooming, toileting and insistent on not doing a cognitive assessment.
[2021-11-03] MEDS: methylPREDNISolone 125 MG/2 ML VIAL 60 MG IV (13:03)
--- NOTE | 2021-11-03 15:15 | PC.NURSE ---
pt transferred to room 224 - he remains intermittently confused but clears fairly quickly- he forgets he is in hospital and to go home soon- family requests [facility] @ time of discharge-lungs coarse with fine crackles bilateral bases and room air 88-94% occ will ask or wear his 02 , no tele, edema 2-3+ bilat lower extremtities with fungal nails. Daughter here ( from [place]) and took his soiled clothes and wallet home with her- bringing fresh clean clothes which were placed in pt room closet, taking diet well- abx changed to PO
--- NOTE | 2021-11-03 16:34 | CM.DANOTE ---
DCP/Assessment: Reviewed chart. Patient is a 86yr old male admitted to [facility] with SOB. PCP is Dr. Roman. Primary payor is 1)[facility]. Briefly met with patient and daughter/Nessa at bedside explained role. Daughter reports that she just arrived here from [place]. Daughter hopeful that patient will be placed in SNF when medically stable. ROUTE SALES DELIVERY DRIVERS SUPERVISOR notified daughter that patient will need to qualify. During visit patient reports that he prefers to d/c home. Therapy evaluations currently pending. First SNF choice from daughter is [facility]. R[employer] SALES DELIVERY [employer]IVERS SUPERVISOR call [facility] in AM once therapy evaluations completed. Daughter reports patient also with dementia. Up to this point has been managing quit well but daughter believes it might be time to consider resource program teacher planning. Daughter hopeful can at least go to SNF under insurance for a bit so that she can begin next steps and attend family member's wedding. Daughter aware if he does not qualify or agree to SNF that we cannot force him. Daughter is hopeful that she can speak with him this evening calmly about short SNF stay. P: Pending. [facility] Discharge Planning/Care Management CM Discharge Assessment Start: 11/03/21 16:30 Freq: Status: Active Protocol: Document 11/03/21 16:30 [facility] (Rec: 11/03/21 16:34 [facility] [id number]) Discharge Planning Assessment Assigned Cut To Length Operator LINDA Pendleton Contact Information Nessa Carbone (daughter) ph# [phone] Advance Directives? Yes Advance Directives on File Yes History Provided By Patient,Medical Record Prior Living Arrangements House Household Members none Type of transporation used prior to Relies on Others admit Independent with ADL's No Is patient alert and oriented? Unclear at this time Needs Assistance With Home Chores / Shopping Caregiver for Another No Community Services used prior to Oxygen Therapy admission: DME Already Rented / Owned FWW / Walker Comment Patient previously has had [facility]. Currently familly hires someone to come in weekly to assist with groceries etc..... Barriers to Discharge Yes Comment Patient adamant about returning home but currrently does not appear to be safest plan. Therapy evaluation therapies pending. Discharge Plan [facility] Facility Transportation Arrangement Pending Referrals Initiated [facility] Preference [facility] ph# [phone] Has Agency SNF been contacted No Whiteboard Updated in Patient Room with Yes name and ext. # of Cut To Length Operator Review Status In Process Next Review Type Continued Stay Review
--- NOTE | 2021-11-03 17:12 | PT-IP ANOTE ---
checked on pt and pt sitting on chair. Pt refusing PT. stated that he is not going to do anything and does not need walk. stated that he does not have to walk everyday and will only get up if he needs to use the toilet. pt also refused exercises. educated pt on importance of PT and d/c plan to go home and pt stated that he does not need to and can just walk out of the hospital. Pt's daughter in room and also encouraged pt but pt continues to refuse. informed supervisor case loading.
[2021-11-03] MEDS: TAMSULOSIN 0.4 MG CAPSULE PO (20:01)
[2021-11-03] MEDS: MELATONIN 3 MG TABLET 6 MG PO (20:02)
[2021-11-04 00:32] VITALS: BP 120/68; PULSE 78; RESP 19; O2SAT 92
[2021-11-04] MEDS: methylPREDNISolone 125 MG/2 ML VIAL 60 MG IV ×3 (00:33→23:41)
[2021-11-04 05:39] VITALS: BP 147/70; PULSE 78; RESP 18; TEMP 35.5; O2SAT 98
[2021-11-04] MEDS: PANTOPRAZOLE DR 40 MG TABLET PO (06:35)
[2021-11-04 08:05] VITALS: BP 129/65; PULSE 88; RESP 16; TEMP 36.3; O2SAT 95
[2021-11-04] MEDS: CEFDINIR 300 MG CAPSULE PO ×2 (08:28→20:42)
[2021-11-04] MEDS: AZITHROMYCIN 250 MG TABLET 500 MG PO (08:28)
[2021-11-04] MEDS: HEPARIN 5,000 UNIT/ML VIAL 5000 UNIT SUBCUT ×2 (08:28→20:42)
[2021-11-04] MEDS: DULOXETINE 20 MG CAPSULE PO (08:28)
[2021-11-04] MEDS: FUROSEMIDE 40 MG/4 ML VIAL IV (08:53)
[2021-11-04 12:35] VITALS: BP 141/111; PULSE 86; RESP 16; TEMP 35.6; O2SAT 90
--- NOTE | 2021-11-04 13:21 | PT.IPTN ---
Current Diagnoses Sepsis, unspecified organism (11/02/21) Physical Therapy Treatment Note M2 PT-IP Current Condition Start: 11/02/21 12:32 Freq: NEEDED Status: Active Protocol: Document 11/02/21 10:56 AB (Rec: 11/02/21 12:43 AB [id number]) Physical Therapy Current Condition Current Condition Evaluation Date 11/02/21 Treatment Diagnosis sepsis; respiratory failure; difficulty in walking Onset Date 11/02/21 M3 PT-IP Subjective Start: 11/02/21 12:32 Freq: NEEDED Status: Active Protocol: Document 11/04/21 13:09 RBD (Rec: 11/04/21 14:36 RBD [id number]) Subjective Physical Therapy Visit Type Visit Start Time 13:09 Visit Stop Time 13:21 Total Visit Minutes 12 Number of OUTBOARD MOTOR TESTER Visits 1 Physical Therapy Visit Comments Patient Comments pt agreeable to PT M4 PT-IP Mobility and Gait Start: 11/02/21 12:32 Freq: NEEDED Status: Active Protocol: Document 11/04/21 13:09 RBD (Rec: 11/04/21 14:36 RBD [id number]) PT-Transfer Assessment Sit to and From Stand Sit to and from Stand Contact Guard Assistance,1 Person Assistance Equipment Transfer Assistive Device Gait Belt,Front Wheeled Walker Orthotic/Prosthetic Devices or Brace: No Comments Mobility Comments Pt sitting in chair upon arrival. Pt was impulsive upon performing sit<>stand CGA and require mod A for safety, fww and catheter management. Pt ambulated in room ~24 feet w/ CGA. Pt movements remained impulsive (increased speed, erratic direction changes, poor fww management) and had difficulty following directions. Pt returned to chair w/ CGA and impulsivity performing stand<>sit. Chair alarm attached, call light and table with in reach. Gait Assessment Gait Gait Assistance Required: Contact Guard Assist,Minimum Assistance Distance (Feet) 24 Able to Maintain Weight Bearing Status Yes During Gait Assistive Devices Assistive Device Gait Belt,Front Wheeled Walker Orthotic/Prosthetic Devices or Brace: No Gait Deviations General Gait Pattern Ataxic,Flexed Trunk Factors Limiting Gait Function Factors Limiting Gait Function Decreased Activity Tolerance, Difficulty Following Directions,Incoordination,Poor Balance,Poor Safety Awareness Comments Gait Comments see mobility Stair Climbing Assessment Comments Stair Climbing Comments Did not attempt secondary to impusiveness, poor safety awareness, and lack of direction following. PT-Balance Assessment Sitting Balance and Reactions Static Sitting Balance Ability Good Dynamic Sitting Balance Ability Fair Standing Balance and Reactions Static Standing Balance Ability Good Dynamic Standing Balance Ability Fair Device Used FWW M5 PT-IP Objective Assessments Start: 11/02/21 12:32 Freq: NEEDED Status: Active Protocol: Document 11/02/21 10:56 AB (Rec: 11/02/21 12:43 AB [id number]) Orientation Orientation/Cognition Level of Alertness Alert Orientation Name,Place,Situation Safety Awareness Decreased Safety Awareness Gross Range of Motion Lower Extremity ROM Assessment Within Functional Limits Strength Lower Extremity Strength Hip 4-/5 Knee 4-/5 Coordination Assessment Gross Coordination Gross Coordination WNL Muscle Tone Muscle Tone WNL Yes M6 PT-IP Treatment Start: 11/02/21 12:32 Freq: NEEDED Status: Active Protocol: Document 11/04/21 13:09 RBD (Rec: 11/04/21 14:36 RBD [id number]) Physical Therapy Treatment Education Education Provided Safety M7 PT-IP Assessment and Plan Start: 11/02/21 12:32 Freq: NEEDED Status: Active Protocol: Document 11/04/21 13:09 RBD (Rec: 11/04/21 14:36 RBD [id number]) PT Summary Assessment and Plan Potential Rehabilitation Potential Fair Status of Condition at Evaluation Stable Summary Impairments Pain,ROM,Strength,Balance, Coordination,Sensation,Tone, Cognition,Bed Mobility, Transfers,Gait,Activity Tolerance Assessment Summary Pt required CGA with mod cueing to ambulates in room. Did not attempt stair ambulation secondary to impulsiveness in difficulty following safety direction. He is an increased fall risk secondary to lack of safety awareness. Would benefit from SNF to improve ambulation and stair management to reduce fall risk. Goals Bed Mobility Goal Independent Transfer Goal Independent,Front Wheeled Walker,Four Wheeled Walker Gait Goal Independent,Front Wheel Walker ,Four Wheel Walker Gait Distance 150 Other Goals improve ambulation using SPC/ without AD 200 ft mod I up.down 5 steps 1 rail SBA Days to Meet Goals 10 Frequency of Treatment Frequency Of Treatment Once a Day Treatment Plan Physical Therapy Treatment Plan Bed Mobility Training,Transfer Training,Gait Training, Therapeutic Exercise,Balance Retraining,Discharge Planning, Hot or Cold Pack,Neuromuscular Re-ed,Coordination Retraining ,Manual Therapy Precautions Other Precautions falls Recommendations To Nursing Amount of Assist Needed 1 Person Assist Discharge Recommendations PT Discharge Recommendations Home with / Assist Available,SNF Rehab Transportation Needs at Discharge Private Vehicle,Wheelchair/ Cabulance
[2021-11-04 14:04] LABS: Hematocrit 36.2 % (41-53); Hemoglobin 11.5 g/dL (13.5-17.5); Mean Corpuscular HGB Conc 31.9 % (30-36); Mean Corpuscular Hemoglobin 26.7 PG (26-34); Mean Corpuscular Volume 83.8 fL (80-100); Platelet Count 194 X10^3/uL (150-400); Red Blood Cell Count 4.32 X10^6/uL (4.5-5.9); Red Cell Distribution Width 18.6 % (11.6-14.8)
[2021-11-04 14:20] LABS: BUN Creatinine Ratio 30.2 (6-22); Blood Urea Nitrogen 29 mg/dL (9-20); Calcium 8.9 mg/dL (8.4-10.2); Carbon Dioxide 30 mmol/L (22-32); Chloride 103 mmol/L (98-107); Estimated Glomerular Filt Rate > 60.0 mL/min (>60); Glucose 186 mg/dL (80-110); HEMOLYSIS < 15 (0-50); Potassium 4.3 mmol/L (3.4-5.1); Sodium 140 mmol/L (137-145)
--- NOTE | 2021-11-04 15:47 | P.PN_ITS ---
Subjective Subjective Date Patient Seen: 11/04/21 Time Patient Seen: 08:00 Interval history: Today he is feeling improved. His shortness of breath is improving and oxygen is being weaned down and will trial off oxygen. He remains unsteady on his feet. He and his daughter are deciding if will agree to SNF. Exam Vital Signs (past 8 hours): - 11/04/21 08:05 11/04/21 12:35 Temperature 97.3 F L 96.1 F L Pulse Rate 88 86 Respiratory Rate 16 16 Blood Pressure 129/65 141/111 H Pulse Oximetry 95 90 L Fraction of Inspired Oxygen 40 Oxygen Delivery Method Nasal Cannula Oxygen Flow Rate 0 Narrative Exam Narrative: GEN: He is alert and oriented x3.? No apparent distress.? CV: regular rate and rhythm without murmur PULM: clear to auscultation bilaterally EXT: 2+ ankle edema bilaterally.? Objective Labs Result Diagrams: 11/04/21 13:45 11/04/21 13:45 Labs: Laboratory Results - last 24 hr 11/04/21 11/04/21 13:45 13:45 WBC 19.0 H RBC 4.32 L Hgb 11.5 L Hct 36.2 L MCV 83.8 MCH 26.7 MCHC 31.9 RDW 18.6 H Plt Count 194 Sodium 140 Potassium 4.3 Chloride 103 Carbon Dioxide 30 BUN 29 H Creatinine 0.96 Estimated GFR > 60.0 BUN/Creatinine Ratio 30.2 H Glucose 186 H Calcium 8.9 PFSH Medical History Acquired hypothyroidism (09/16/16) Actinic keratosis Basal cell carcinoma 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) Colon polyps CVA (cerebral vascular accident) Depression (06/29/15) Erectile dysfunction (02/12/16) Essential hypertension (06/29/15) Gout Hemorrhoids Hyperlipemia Insomnia Obstructive sleep apnea Osteoarthritis Primary insomnia (09/16/16) Squamous cell carcinoma Surgical History History of ectropion repair (10/2017) Hx of surgical procedure Family History Family/Other Unknown family medical history Social History household members: none Smoking Status: Former smoker Assessment & Plan Assessment & Plan narrative: Mr. George is an 86M who presents with respiratory failure secondary to presumed pneumonia and possible COPD found to be septic and in ZAHRA. He is much more alert and energetic. He continue on broad spectrum antibiotics with meropenem. He continues on azithromycin and steroids. 1. Acute hypoxemic and hypercarbic respiratory failure from pneumonia and COPD w ith severe sepsis -patient did require bipap briely in ED due to hypercarbia -continue IV antibiotics with Azithromycin and Cefdinir after stopping meropenem when lost IV access -patient's blood pressure improved with IV fluid resuscitation and improving mental status -white blood count remains high at 17.5 on 11/03, possibly secondary to steroids 2. Acute kidney injury due to hypovolemia and sepsis -initial creatinine on admission was 1.8 -fluid resuscitated in ED -repeat creatinine 11/03 1.22 -keep stanton for monitoring urine output 3. Acute encephalopathy due to hypercarbic respiratory failure -treat infection as above -BIPAP as necessary for hypercarbia 4. Depression -continue duloxetine 5. GERD -continue protonix 6. Hypertension -hold atenolol 7. Dementia -chronic 8. BPH -hold flomax due to hypotension Dispo: patient is medically stable for discharge pending likely discharge to SNF once accepted Time Spent With Patient Critical Care time: I spent a total of [] minutes of critical care time on this patient's care today; this time is exclusive of procedural time.
--- NOTE | 2021-11-04 15:52 | CM.DANOTE ---
DCP/continued: Reviewed chart. Patient seen by therapy today and SNF recommended. Patient appears to be agreeable to SNF but also mentions he wants to go home. Daughter in room with patient and HEALTH CENTER ASSOCIATE today. Patient does agree to short SNF stay. Daughter reports that the family is considering long-term options. However, for now the plan is once patient done at SNF he will return home with additional caregiver hours and HH. Daughter reports that she will be out of town for a few weeks but there is additional family. HEALTH CENTER ASSOCIATE faxed SNF request to [facility]. Per patient first SNF choice is [facility]. HEALTH CENTER ASSOCIATE left vm on admit line. Patient reports that he has been vaccinated. Patient appears to have off/on confusion but easily to direct and pleasant. PASRR completed. Daughter aware if [facility] does not authorize patient will most likely go home with HH and additional caregiver hours. Daughter hopeful patient can go for short SNF stay first. Provider updated. Hopeful patient can d/c from [facility] tomorrow. P: Pending. [facility] for short SNF stay if accepted and [facility] authorizes. TATYANA
[2021-11-04 18:03] LABS: COVID19 -Nasal RAPID Negative (Negative)
[2021-11-04 20:00] VITALS: BP 128/60; PULSE 91; RESP 19; TEMP 36.3; O2SAT 92
[2021-11-04] MEDS: MELATONIN 3 MG TABLET 6 MG PO (20:42)
[2021-11-04] MEDS: SODIUM CHLORIDE 0.9% FLUSH 10 ML IV ×2 (20:43→23:42)
[2021-11-04] MEDS: TAMSULOSIN 0.4 MG CAPSULE PO (20:43)
--- NOTE | 2021-11-04 23:03 | PC.NURSE ---
Patient is oriented to self, birthdate, age and place. [place] without hearing aids. Breath sounds diminished at bases with expiratory rhonchi; has audible wheeze. Denies SOB and has RA sat of 92%. HRR. Denied nausea. BT present but hypoactive; up to bathroom to have BM but was incontinent of stool on his way to the bathroom. Had catheter removed on previous shift and has voided per urinal; denied dysuria. Is able to move himself in bed and is restless alternating between lying in bed and sitting on edge of bed. Does not remember to use call light for staff assistance. FAMILY PARTNER reports patient ambulated to bathroom with 1 assist; no walker. Denies pain. 2+ bilateral ankle edema. Open area to left medial buttock; barrier cream applied and using waffle cushion. Fall risk score is high and bed alarm is activated.
[2021-11-05] MEDS: PANTOPRAZOLE DR 40 MG TABLET PO (06:13)
[2021-11-05 07:00] VITALS: BP 159/83; PULSE 94; RESP 18; TEMP 36.5; O2SAT 93
[2021-11-05 08:49] VITALS: PULSE 92; RESP 16; O2SAT 92
[2021-11-05] MEDS: DULOXETINE 20 MG CAPSULE PO (08:49)
[2021-11-05] MEDS: HEPARIN 5,000 UNIT/ML VIAL 5000 UNIT SUBCUT ×2 (08:49→20:08)
[2021-11-05] MEDS: CEFDINIR 300 MG CAPSULE PO ×2 (08:49→20:08)
[2021-11-05] MEDS: AZITHROMYCIN 250 MG TABLET 500 MG PO (08:49)
[2021-11-05] MEDS: SODIUM CHLORIDE 0.9% FLUSH 10 ML IV ×2 (08:51→20:08)
--- NOTE | 2021-11-05 10:27 | OT.IP.TRT ---
Current Diagnoses Sepsis, unspecified organism (11/02/21) Occupational Therapy Treatment Note M2 OT-IP Current Condition Start: 11/02/21 17:46 Freq: Status: Active Protocol: Document 11/02/21 16:53 [facility] (Rec: 11/02/21 18:10 [facility] [id number]) Occupational Therapy Current Condition Current Condition Evaluation Date 11/02/21 Treatment Diagnosis Sepsis, respiratory failure Diagnosis Onset Date 11/02/21 M3 OT- IP Subjective and Pain Start: 11/02/21 17:46 Freq: Status: Active Protocol: Document 11/05/21 10:52 [facility] (Rec: 11/05/21 11:07 [facility] [id number]) OT- Subjective Occupational Therapy Visit Type Type Progress Note Visit Start Time 10:01 Visit Stop Time 10:27 Total Visit Minutes 26 Occupational Therapy Visit Comments Patient Comments I have already done this test you you this morning. OT Pain Assessment Pain When Pain Assessed At Rest Pain Present Pain Present Denied Pain M4 OT- IP ADL's Start: 11/02/21 17:46 Freq: Status: Active Protocol: Document 11/05/21 10:52 [facility] (Rec: 11/05/21 11:07 [facility] [id number]) OT [id number] Comments OT Self-Feeding Comments Not meal time OT ADL-Grooming Comments OT Grooming Comments Pt declined, states he already performed OT ADL-Oral Care Comments Oral Care Comments Pt declined, states he already performed OT ADL-Dressing Comments OT Dressing Comments not performed OT ADL-Toileting General Evaluation Toileting Ability Standby Assistance Comments OT Toileting Comments simulated seated on toielt OT ADL-Bathing Comments OT Bathing Comments Pt declined, states he performed yesterday pm. M5 OT- IP IADL's Start: 11/02/21 17:46 Freq: Status: Active Protocol: Document 11/02/21 16:53 [facility] (Rec: 11/02/21 18:10 [facility] [id number]) OT-Instrumental Activities of Daily Living Home Safety Awareness Awareness of Need for Assistance at Home Decreased Awareness Ability to Problem Solve Emergency Unable to Problem Solve Situations Medication Management Medication Management Caregiver Administers Money Management Money Management Caregiver Provides Assistance Meal Preparation Meal Preparation Caregiver Provides Assist Ict Project Manager Ict Project Manager Caregiver Provides Assist M6 OT- IP Functional Cognition Start: 11/02/21 17:46 Freq: Status: Active Protocol: Document 11/05/21 10:52 [facility] (Rec: 11/05/21 11:07 [facility] [id number]) Cognitive Factors Limiting Selfcare Function Cognitive Ability Level of Alertness Alert,Confusional State Patient Orientation Name,Year,Place,Situation Attention Span Ability Capable of Focused Attention, Capable of Sustained Attention Ability to Follow Commands Able to Follow One Step Commands with Increased Time, Able to Follow One Step Commands with Repetition Cognitive Tests SLUMS Pt scored a 17/30 which according to the scoring for the SLUMS puts him into the category of Dementia. Pt was unable to state the day of the week, do simple math, named 11 animals in 1 minute, remembered 4 of the 5 objects, was able to reverse a series of numbers for a 3 number series only, was unable to correctly number or raul the clock face, and missed one of the 4 listening comprehension questions. OT- Vision and Hearing OT- Hearing Assessment OT- Hearing Assessment Hearing Impaired M7 OT- IP Mobility and Balance Start: 11/02/21 17:46 Freq: Status: Active Protocol: Document 11/05/21 10:52 [facility] (Rec: 11/05/21 11:07 [facility] [id number]) OT-Transfer Assessment Sit to and From Stand Sit to and from Stand Standby Assistance Transfers Transfer Ability Standby Assistance Technique Transfer Destination Bed Transfer Technique Stand Pivot Devices Transfer Assistive Devices Gait Belt Comments Mobility Comments Pt needed encouragmenet to agree to use of the gait belt. Pt states he doesn't need the walker. Pt ambulated to the bathroom and simulated toileting. Pt then returned to EOB for cog testing. OT- Balance Assessment Sitting Balance and Reactions Static Sitting Balance Ability Normal M8 OT- IP Objective Assessments Start: 11/02/21 17:46 Freq: Status: Active Protocol: Document 11/02/21 16:53 [facility] (Rec: 11/02/21 18:10 [facility] [id number]) OT Gross Range of Motion Upper Extremity Range of Motion ROM Impairments RUE 0-120, LUE 0-100 shoulder flexion OT Strength Comments Strength Comments BUE 4+/5 t0 4/5 from proximal to distal. OT-Muscle Tone Assessment Muscle Tone WNL Yes M9 OT- IP Assessment and Plan Start: 11/02/21 17:46 Freq: Status: Active Protocol: Document 11/05/21 10:52 [facility] (Rec: 11/05/21 11:07 CGR [id number]) OT Summary Assessment and Plan Potential Rehabilitation Potential Fair Analytic Complexity at Evaluation Moderate Summary OT Impairments Strength,Balance,Coordination, Functional Cognition, Functional Mobility,Grooming, Dressing,Toileting,Bathing, Toilet Transfers,Shower Transfers,Activity Tolerance Progress Towards Goals Slow Progress due to Medical Issues,Slow Progress due to Activity Tolerance,Slow Progress due to Cognition Assessment Summary Pt presents with declines to cognition (although this may be his baseline). Pt is moving around the room with SBA and declined shower and other ADLs but is generally agreeable to activity. Pt will benefit from continued therapy services. Recommend d/c to SNF vs home with 24 hour care. Goals Self-Feeding Goal Independent Grooming Goal Independent Dressing Goal Independent Toileting Goal Independent Bathing Goal Independent Toilet Transfer Goal Independent Shower Transfer Goal Independent Days to Meet Goals 15 Frequency of Treatment Frequency Of Treatment Once a Day Treatment Plan OT Treatment Plan ADL Training,Functional Cognition Training,Functional Mobility,Patient/Family Education,Discharge Planning Other Treatment Recommendations and Next SLUMS Treatment Focus Discharge Recommendations OT Discharge Recommendations SNF Rehab Transportation Needs at Discharge Wheelchair/Cabulance
[2021-11-05] MEDS: methylPREDNISolone 125 MG/2 ML VIAL 60 MG IV (11:13)
--- NOTE | 2021-11-05 14:18 | PT-IP ANOTE ---
Pt refused therapy stating he has no needs. Pts daughter states pts dementia has seemed worse over last couple of days.
--- NOTE | 2021-11-05 14:56 | CM.DPC ---
Ongoing SNF planning: Pt's Dtr Nessa requested to speak to SW and SW met bedside with pt and Dtr Nessa and explained role and pt's dementia/confusion has been more pronounced since being admitted per Dtr statements and pt currently states he is leaving in half an hour for home. Per PT/OT, recommending SNF as pt lives alone and Dtr only here for a couple days before having to fly to [place]. PENELOPE updated Dtr that [facility] cannot accept and Dtr states her preference is [facility] as pt did very well there last year but she's also agreeable to [facility] as pt also has been there before. PENELOPE called [facility] and left msg with admissions and faxed new referral packet to review and updated that pt stable for d/c when SNF can be secured. PENELOPE called [facility] and they currently do not anticipate openings for a couple days but willing to review in case something opens up sooner. PENELOPE faxed referral for review. PASRR previously completed. PENELOPE Sharon to continue with pt d/c planning once back from her meeting today. Saray Meeks MSW
[2021-11-05 16:18] LABS: Hematocrit 38.8 % (41-53); Hemoglobin 12.3 g/dL (13.5-17.5); Mean Corpuscular HGB Conc 31.7 % (30-36); Mean Corpuscular Hemoglobin 27.6 PG (26-34); Platelet Count 139 X10^3/uL (150-400); Red Blood Cell Count 4.46 X10^6/uL (4.5-5.9); Red Cell Distribution Width 20.8 % (11.6-14.8); White Blood Cell Count 16.8 X10^3/uL (4.5-11.0)
--- NOTE | 2021-11-05 16:33 | P.PN_ITS ---
Subjective Subjective Date Patient Seen: 11/05/21 Time Patient Seen: 08:00 Interval history: Today he denies any complaints. He denies shortness of breath. He wants to leave the hospital. Exam Vital Signs (past 8 hours): - 11/05/21 08:49 Pulse Rate 92 H Respiratory Rate 16 Pulse Oximetry 92 Fraction of Inspired Oxygen 40 Oxygen Delivery Method Room Air Oxygen Flow Rate 0 Narrative Exam Narrative: GEN: He is alert and oriented x3.? No apparent distress.? CV: regular rate and rhythm without murmur PULM: clear to auscultation bilaterally EXT: 2+ ankle edema bilaterally.? Objective Labs Result Diagrams: 11/05/21 16:09 11/04/21 13:45 Labs: Laboratory Results - last 24 hr 11/04/21 11/05/21 16:39 16:09 WBC 16.8 H RBC 4.46 L Hgb 12.3 L Hct 38.8 L MCV 87.0 D MCH 27.6 MCHC 31.7 RDW 20.8 H Plt Count 139 L SARS-CoV-2 (PCR) Negative [facility] Medical History Acquired hypothyroidism (09/16/16) Actinic keratosis Basal cell carcinoma 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) Colon polyps CVA (cerebral vascular accident) Depression (06/29/15) Erectile dysfunction (02/12/16) Essential hypertension (06/29/15) Gout Hemorrhoids Hyperlipemia Insomnia Obstructive sleep apnea Osteoarthritis Primary insomnia (09/16/16) Squamous cell carcinoma Surgical History History of ectropion repair (10/2017) Hx of surgical procedure Family History Family/Other Unknown family medical history Social History household members: none Smoking Status: Former smoker Assessment & Plan Assessment & Plan narrative: Mr. George is an 86M who presents with respiratory failure secondary to presumed pneumonia and possible COPD found to be septic and in ZAHRA. He is much more alert and energetic. He continue on broad spectrum antibiotics with meropenem. He continues on azithromycin and steroids. 1. Acute hypoxemic and hypercarbic respiratory failure from pneumonia and COPD with severe sepsis, resolved -patient did require bipap briely in ED due to hypercarbia -continue IV antibiotics with Azithromycin and Cefdinir after stopping meropenem when lost IV access -patient's blood pressure improved with IV fluid resuscitation and improving mental status -white blood count remains high at 17.5 on 11/03, possibly secondary to steroids 2. Acute kidney injury due to hypovolemia and sepsis, resolved -initial creatinine on admission was 1.8 -fluid resuscitated in ED -repeat creatinine 11/03 1.22 -keep stanton for monitoring urine output 3. Acute encephalopathy due to hypercarbic respiratory failure -treat infection as above -BIPAP as necessary for hypercarbia 4. Depression -continue duloxetine 5. GERD -continue protonix 6. Hypertension -hold atenolol 7. Dementia -chronic 8. BPH -hold flomax due to hypotension Dispo: patient is medically stable for discharge pending likely discharge to SNF once accepted Time Spent With Patient Critical Care time: I spent a total of [] minutes of critical care time on this patient's care today; this time is exclusive of procedural time.
[2021-11-05 16:39] LABS: BUN Creatinine Ratio 31.3 (6-22); Blood Urea Nitrogen 25 mg/dL (9-20); Calcium 8.7 mg/dL (8.4-10.2); Carbon Dioxide 28 mmol/L (22-32); Chloride 102 mmol/L (98-107); Estimated Glomerular Filt Rate > 60.0 mL/min (>60); Glucose 232 mg/dL (80-110); Potassium 4.8 mmol/L (3.4-5.1); Sodium 138 mmol/L (137-145)
[2021-11-05 16:40] LABS: HEMOLYSIS 77 (0-50)
--- NOTE | 2021-11-05 16:47 | CM.DPC ---
DCP/continued: Placed call to January at [facility] this AM to check on bed availability. After January reviewed it was determined that they could not accept. Apparently, last time patient at [facility] he always wanted leave. Placed call to [facility] spoke Sand[facility]a, she reports that fax not received for SNF request. Therefore, COLLECTIONS REPRESENTATIVE refaxed to [facility] for authorization. Sandrita called back indicating short snf stay is approved ref# [id number]. LINDA/Saray faxed clinical to both [facility] and [facility] for review. Daughter reports that she has no preference in SNF. PASSR done. TATYANA
[2021-11-05 20:00] VITALS: BP 171/88; PULSE 101; RESP 18; TEMP 36.6; O2SAT 95
[2021-11-05] MEDS: TAMSULOSIN 0.4 MG CAPSULE PO (20:08)
[2021-11-05] MEDS: MELATONIN 3 MG TABLET 6 MG PO (20:08)
--- NOTE | 2021-11-05 21:48 | PC.NURSE ---
Patient is oriented to self, birthdate, age, place and situation. Is forgetful and needs frequent reminders to use call light. Breath sounds with scattered rhonchi but RA sat is 95% and denies SOB. HRR but tachy at 101 bpm and BP elevated at 171/88. Denied nausea. BT present and is passing flatus; had BM earlier today. Is voiding per urinal and denied dysuria. Able to move self in bed. Unsteady/weak bilateral LE so is assisted when up. Denied pain. Fall risk score is high and bed alarm is activated.
[2021-11-06] MEDS: SODIUM CHLORIDE 0.9% FLUSH 10 ML IV ×2 (00:36→09:19)
[2021-11-06] MEDS: methylPREDNISolone 125 MG/2 ML VIAL 60 MG IV (00:36)
[2021-11-06] MEDS: PANTOPRAZOLE DR 40 MG TABLET PO (06:00)
[2021-11-06 08:21] VITALS: BP 156/99; PULSE 92; O2SAT 93
[2021-11-06] MEDS: AZITHROMYCIN 250 MG TABLET 500 MG PO (08:51)
[2021-11-06] MEDS: HEPARIN 5,000 UNIT/ML VIAL 5000 UNIT SUBCUT ×2 (08:51→20:08)
[2021-11-06] MEDS: DULOXETINE 20 MG CAPSULE PO (08:51)
[2021-11-06] MEDS: atenoloL 50 MG TABLET PO ×2 (08:51→20:08)
[2021-11-06 08:56] VITALS: O2SAT 94
[2021-11-06] MEDS: CEFDINIR 300 MG CAPSULE PO ×2 (09:19→20:12)
[2021-11-06 10:31] VITALS: BP 169/87; PULSE 82; RESP 18; O2SAT 93
--- NOTE | 2021-11-06 10:51 | CM.DPC ---
DCP Cont: [facility] auth'd pt yesterday afternoon for SNF per previous SW. Dtr is leaving soon for a trip to [place] and preference is SNF before return home alone with PP CGs in place and then Dtr will be back in November to stay local for at least a few months to assist with any needs and better LTC planning. SW attempted following [facility] contracted SNFs: [facility]- no [facility]- no [facility]- only accept [facility] if its one of their LTC pts needing rehab [facility]- reviewing but may not have a bed until tomorrow or Thurs [facility]- reviewing, will have an opening tomorrow [facility]- may be willing to review if [facility] and [facility] can't accept as they are not [facility] preferred facility [facility]- willing to review and have openings PASRR previously completed in anticipation of SNF. SW printed off pt's COVID vax copy and pt fully vaccinated with 3 doses. Plan: SW to follow closely for [facility], [facility], and [facility] review for preferred d/c today. LINDA Garnett
[2021-11-06] MEDS: predniSONE 20 MG TABLET 40 MG PO (12:08)
--- NOTE | 2021-11-06 14:21 | PT.IPTN ---
Current Diagnoses Sepsis, unspecified organism (11/02/21) Physical Therapy Treatment Note M2 PT-IP Current Condition Start: 11/02/21 12:32 Freq: NEEDED Status: Active Protocol: Document 11/02/21 10:56 AB (Rec: 11/02/21 12:43 AB [id number]) Physical Therapy Current Condition Current Condition Evaluation Date 11/02/21 Treatment Diagnosis sepsis; respiratory failure; difficulty in walking Onset Date 11/02/21 M3 PT-IP Subjective Start: 11/02/21 12:32 Freq: NEEDED Status: Active Protocol: Document 11/06/21 14:07 KS (Rec: 11/06/21 14:31 KS [id number]) Subjective Physical Therapy Visit Type Type Treatment Note Visit Start Time 14:07 Visit Stop Time 14:21 Total Visit Minutes 14 Number of ORTHOPAEDIC NURSE Visits 2 Physical Therapy Visit Comments Patient Comments pt agreeable to PT M4 PT-IP Mobility and Gait Start: 11/02/21 12:32 Freq: NEEDED Status: Active Protocol: Document 11/06/21 14:07 KS (Rec: 11/06/21 14:31 KS [id number]) PT-Transfer Assessment Sit to and From Stand Sit to and from Stand Standby Assistance,1 Person Assistance,Use of Upper Extremities Equipment Transfer Assistive Device Gait Belt Orthotic/Prosthetic Devices or Brace: No Transfers Transfer Destination Chair,Toilet Transfer Ability Level of Assist Standby Assistance Comments Mobility Comments Pt in chair upon arrival and agreeable to ambulate around room. SBA for sit<>stand from chair and SBA for ~40 ft ambulation around room. Pt then used toilet independently and ambulated additional 20 ft around room w/ 1x slight lateral LOB but recovered on his own. Pt returned to chair SBA and left in chair w/ all needs in reach. Gait Assessment Gait Gait Assistance Required: Standby Assistance,Contact Guard Assist,1 Person Assist Distance (Feet) 60 Able to Maintain Weight Bearing Status Yes During Gait Assistive Devices Assistive Device Gait Belt,Front Wheeled Walker Orthotic/Prosthetic Devices or Brace: No Gait Deviations General Gait Pattern Ataxic,Decreased Stride Length ,Decreased Feet Clearance, Flexed Trunk,Wide Based Gait Factors Limiting Gait Function Factors Limiting Gait Function Decreased Activity Tolerance, Difficulty Following Directions,Incoordination,Poor Balance,Poor Safety Awareness Comments Gait Comments see mobility Stair Climbing Assessment Comments Stair Climbing Comments Did not attempt secondary to impusiveness, poor safety awareness, and lack of direction following. PT-Balance Assessment Sitting Balance and Reactions Static Sitting Balance Ability Good Dynamic Sitting Balance Ability Fair Standing Balance and Reactions Static Standing Balance Ability Fair Dynamic Standing Balance Ability Fair Device Used no AD M5 PT-IP Objective Assessments Start: 11/02/21 12:32 Freq: NEEDED Status: Active Protocol: Document 11/02/21 10:56 AB (Rec: 11/02/21 12:43 AB [id number]) Orientation Orientation/Cognition Level of Alertness Alert Orientation Name,Place,Situation Safety Awareness Decreased Safety Awareness Gross Range of Motion Lower Extremity ROM Assessment Within Functional Limits Strength Lower Extremity Strength Hip 4-/5 Knee 4-/5 Coordination Assessment Gross Coordination Gross Coordination WNL Muscle Tone Muscle Tone WNL Yes M6 PT-IP Treatment Start: 11/02/21 12:32 Freq: NEEDED Status: Active Protocol: Document 11/06/21 14:07 KS (Rec: 11/06/21 14:31 KS [id number]) Physical Therapy Treatment Education Education Provided Safety M7 PT-IP Assessment and Plan Start: 11/02/21 12:32 Freq: NEEDED Status: Active Protocol: Document 11/06/21 14:07 KS (Rec: 11/06/21 14:31 KS [id number]) PT Summary Assessment and Plan Potential Rehabilitation Potential Fair Status of Condition at Evaluation Stable Summary Impairments Pain,ROM,Strength,Balance, Coordination,Sensation,Tone, Cognition,Bed Mobility, Transfers,Gait,Activity Tolerance Assessment Summary Pt SBA for transfers and ambulation today. Able to ambulate total of 60 ft w/o AD w/ 1 slight lateral LOB that he recovered on his own. Used bathroom independently. He is increased fall risk due to poor balance and impulsiveness . He will benefit from SNF to reduce risk of falls and improve safety w/ gait. Goals Bed Mobility Goal Independent Transfer Goal Independent,Front Wheeled Walker,Four Wheeled Walker Gait Goal Independent,Front Wheel Walker ,Four Wheel Walker Gait Distance 150 Other Goals improve ambulation using SPC/ without AD 200 ft mod I up.down 5 steps 1 rail SBA Days to Meet Goals 10 Frequency of Treatment Frequency Of Treatment Once a Day Treatment Plan Physical Therapy Treatment Plan Bed Mobility Training,Transfer Training,Gait Training, Therapeutic Exercise,Balance Retraining,Discharge Planning, Hot or Cold Pack,Neuromuscular Re-ed,Coordination Retraining ,Manual Therapy Precautions Other Precautions falls Recommendations To Nursing Amount of Assist Needed 1 Person Assist Discharge Recommendations PT Discharge Recommendations Home with 17/03 Assist Available,SNF Rehab Transportation Needs at Discharge Private Vehicle,Wheelchair/ Cabulance
--- NOTE | 2021-11-06 14:32 | PC.NURSE ---
Addendum entered by Haylie Islas R.N. 11/06/21 14:38: provider okayed no IV access needed at this time. Original Note: Rn attempted to flush IV at start of shift and IV was pooring saline out was no longer working, nurse attempted to start new IV 2x and then asked three other nurses to start IV, all three attempts failed. Pt pulled his bad IV out in the process and now has no IV access, provider was notified.
--- NOTE | 2021-11-06 16:00 | OT.IPNOTE ---
Attempted to see pt for OT needs and pt states already just used the bathroom, not wanting to shower and content just to watch TV for now. NO charge.
--- NOTE | 2021-11-06 19:24 | P.PN_ITS ---
Subjective Subjective Date Patient Seen: 11/06/21 Interval history: Patient is feeling significantly improved. He is able to be weaned off oxygen. He has no specific complaint Exam Vital Signs (past 8 hours): Fraction of Inspired Oxygen 40 Oxygen Delivery Method Room Air Oxygen Flow Rate 0 Narrative Exam Narrative: Pleasant male lying in bed in no acute distress Resp Other: Lungs clear to auscultation Cardio Other: Cardiac exam: Regular rate rhythm normal S1-S2 GI Other: Abdomen soft and nontender Objective Labs Result Diagrams: 11/05/21 16:09 11/05/21 16:09 [facility] Medical History Acquired hypothyroidism (09/16/16) Actinic keratosis Basal cell carcinoma 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) Colon polyps CVA (cerebral vascular accident) Depression (06/29/15) Erectile dysfunction (02/12/16) Essential hypertension (06/29/15) Gout Hemorrhoids Hyperlipemia Insomnia Obstructive sleep apnea Osteoarthritis Primary insomnia (09/16/16) Squamous cell carcinoma Surgical History History of ectropion repair (10/2017) Hx of surgical procedure Family History Family/Other Unknown family medical history Social History household members: none Smoking Status: Former smoker Assessment & Plan Assessment & Plan narrative: Mr. George is an 86M who presents with respiratory failure secondary to presumed pneumonia and possible COPD found to be septic and in ZAHRA. He is much more alert and energetic. He continue on broad spectrum antibiotics with meropenem. He continues on azithromycin and steroids. 1. Acute hypoxemic and hypercarbic respiratory failure from pneumonia and COPD with severe sepsis -patient did require bipap briely in ED due to hypercarbia -continue oral antibiotics with Azithromycin and Cefdinir after stopping meropenem when lost IV access -patient's blood pressure improved with IV fluid resuscitation and improving mental status -white blood count remains high at 17.5 on 11/03, possibly secondary to steroid - 2. Acute kidney injury due to hypovolemia and sepsis -initial creatinine on admission was 1.8 -fluid resuscitated in ED -repeat creatinine 11/03 1.22 -keep stanton for monitoring urine output -renal function normal 3. Acute encephalopathy due to hypercarbic respiratory failure -treat infection as above -BIPAP as necessary for hypercarbia 4. Depression -continue duloxetine 5. GERD -continue protonix 6. Hypertension -hold atenolol 7. Dementia -chronic Awaiting stent placement Time Spent With Patient Critical Care time: I spent a total of [] minutes of critical care time on this patient's care today; this time is exclusive of procedural time.
[2021-11-06] MEDS: TAMSULOSIN 0.4 MG CAPSULE PO (20:08)
[2021-11-06] MEDS: MELATONIN 3 MG TABLET 6 MG PO (20:08)
[2021-11-06 21:38] VITALS: BP 149/75; PULSE 76; RESP 18; TEMP 36.6; O2SAT 92
[2021-11-07] MEDS: PANTOPRAZOLE DR 40 MG TABLET PO (06:37)
[2021-11-07 08:33] VITALS: BP 135/82; PULSE 78; RESP 16; TEMP 36.3; O2SAT 93
--- NOTE | 2021-11-07 08:50 | P.DS_ITS ---
History of Present Illness History of Present Illness Date Patient Seen: 11/07/21 Time Patient Seen: 08:50 Chief complaint: GLF Narrative: Mr. George is a 86M with PMH NATTY, dementia, HTN, HL, BPH, CVA, GERD with history of GI bleed, hypothyroid, who lives at home alone, but does have caregivers, and is sonia in by EMS for shortness of breath. He had been and what sounds like his normal state of health and had fallen.?When EMS arrived he was already back up in his chair and sat at 82%.? He was on 10 L during transport.? He denies any injury and takes no blood thinners.? He is a poor historian, and was confused initially on presentation to the ED. In the ED workup was done and vitals notable for tachypnea and hypoxemia. Patient developed hypotension in the ED, and IJ was attempted but unsuccessful. Labs notable for WBC 19.1, hgb 11.2, plt 156, na 134, creatinine 1.88. Lactate normal. Troponin negative. BNP 6510, procal 0.68.? ABG showed pco2 in 60s. Re spiratory panel negative. Chest xray and CTA read as no acute process. He was placed on BIPAP for confused and hypercarbia. He was ordered for IV fluids and meropenem and admitted for further treatment. Discharge Providers Provider Date of admission: 11/02/21 01:44 Discharge Date: 11/07/21 Primary care physician: Gus Dao MD Consults: 11/01/21 22:44 Consult to Respiratory Therapy Evaluate & Treat Comment: Physician Instructions: Evaluate and treat 11/02/21 01:30 Consult to Occupational Therapy Evaluate & Treat Comment: Physician Instructions: Evaluate and treat Consult to Physical Therapy Evaluate & Treat Comment: Physician Instructions: Evaluate and Treat 11/02/21 13:34 Consult to Dietitian, Adult Routine Comment: Reason For Exam: MNA score 11/03/21 16:47 Consult to Occupational Therapy Evaluate & Treat Comment: Physician Instructions: Evaluate and treat 11/04/21 14:05 Consult to Occupational Therapy Evaluate & Treat Comment: Physician Instructions: Evaluate and treat Discharge provider: Alina Mota MD Summary Hospital Course Discharge Diagnosis: 1. Acute hypoxic respiratory failure 2. Severe sepsis, manifested by acute kidney injury, and acute metabolic encephalopathy 3. Pneumonia, suspect community-acquired 4. Acute metabolic encephalopathy 5. COPD 6. Acute kidney injury 7. Dementia 8. Depression 9. GERD 10. Hypertension 11. BPh Hospital Course: Patient was admitted to the hospital with acute hypoxic respiratory failure. A CTA and chest x-ray were negative. However given the patient's elevated white count and procalcitonin it was felt he had probable pneumonia, and COPD. He was treated with IV steroids, treated with antibiotics, he had improvement of his oxygenation. The patient did develop acute kidney injury, he was given IV hydration, he had a renal ultrasound which was negative for obstruction. He underwent a cardiac echo, this showed normal LV size, wall thickness, systolic function and ejection fraction 55-60%. There was moderate left atrial enlargement, trace AI in the setting of a moderately dilated aortic root., renal ultrasound showed no evidence of hydronephrosis, there were multiple bilateral renal. Patient made slow but steady progress, he was able to be tapered off oxygen, he was somewhat cantankerous, but did participate with PT and OT. It was felt that he was unsafe and unstable to return to his home living environment. Arrangements were made for him to discharge to senior care. As the patient's chest x-ray, and CT angio were both negative. His antibiotics were discontinued after a 5 day course, he also received 5 days of stay steroids and these were discontinued as well. Patient was deemed appropriate for discharge and discharged home. Status at Discharge Cognitive/behavioral status at discharge: at baseline, confused Functional status at discharge: uses cane/walker Overall status at discharge: patient is progressing back to baseline Exam Vital Signs (past 8 hours): - 11/07/21 08:33 Temperature 97.4 F L Pulse Rate 78 Respiratory Rate 16 Blood Pressure 135/82 Pulse Oximetry 93 Fraction of Inspired Oxygen 40 Oxygen Delivery Method Room Air Oxygen Flow Rate 0 Narrative Exam Narrative: Elderly male sitting in a chair eating breakfast Resp Other: Lungs decreased but clear to auscultation Cardio Other: Cardiac exam: Regular rate and rhythm normal S1-S2 GI Other: Abdomen soft and nontender Extrem Other: Extremity no edema Objective Labs Result Diagrams: 11/05/21 16:09 11/05/21 16:09 COUNT INCLUDES THE [facility] Medical History Acquired hypothyroidism (09/16/16) Actinic keratosis Basal cell carcinoma 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) Colon polyps CVA (cerebral vascular accident) Depression (06/29/15) Erectile dysfunction (02/12/16) Essential hypertension (06/29/15) Gout Hemorrhoids Hyperlipemia Insomnia Obstructive sleep apnea Osteoarthritis Primary insomnia (09/16/16) Squamous cell carcinoma Surgical History History of ectropion repair (10/2017) Hx of surgical procedure Family History Family/Other Unknown family medical history Social History household members: none Smoking Status: Former smoker Discharge Assessment & Plan Assessment and Plan Assessment: 1. Acute hypoxic respiratory failure 2. Severe sepsis, manifested by acute kidney injury, and acute metabolic encephalopathy 3. Pneumonia, suspect community-acquired 4. Acute metabolic encephalopathy 5. COPD 6. Acute kidney injury 7. Dementia 8. Depression 9. GERD 10. Hypertension 11. BPh Plan of Treatment: Discharge to SNF Discharge Plan Discharge Plan Patient Disposition: [facility] Transfer to: [facility] Consult as needed: Dental, Hearing, Mental health, Podiatry and Vision Discharge orders & Medications Prescriptions: New melatonin 3 mg Tablet 6 mg PO BEDTIME Qty: 30 0RF Continued pantoprazole 40 mg tablet,delayed release (DR/EC) 40 mg PO BID Qty: 180 3RF Label Comments: 40 mg PO BID tamsulosin 0.4 mg capsule 0.4 mg PO BEDTIME Qty: 90 3RF duloxetine 20 mg capsule,delayed release(DR/EC) 20 mg PO DAILY Qty: 90 1RF atenolol 50 mg tablet 50 mg PO BID Qty: 180 1RF allopurinol 100 mg tablet 100 mg PO DAILY Qty: 90 1RF famotidine 20 mg Tablet 20 mg PO BID 0RF cholecalciferol (vitamin D3) [Vitamin D3] 50 mcg (2,000 unit) Capsule 2,000 unit PO DAILY 0RF amlodipine 10 mg tablet 10 mg PO DAILY 0RF Rx Instructions: TAKE 1 TABLET BY MOUTH EVERY DAY Saccharomyces boulardii [Florastor] 250 mg Capsule 250 mg PO DAILY 0RF melatonin 5 mg Tablet 5 mg PO BEDTIME 0RF No Action (DME) glucometer and test strips See Rx Instructions .Route .MEDSUPPLY Qty: 1 0RF Rx Instructions: As directed Follow up/Referrals: Larry Roman MD [Family Provider] - Gus Dao MD [Primary Care Provider] - Discharge Health Status Multidrug resistant organism: No MDRO Diet/Activity/Treatments Diet: Diet as Tolerated Liquid consistency: Normal/Thin Food texture: Regular Skin/Wound/Dressing Care Report to your healthcare provider any signs of infection, such as:: chills, fever [facility] Reason for rehabilitation: Recovery r/t decondition Rehab type: Physical therapy and Occupational therapy Discharge Data Primary Care Provider: Gus Dao
[2021-11-07] MEDS: HEPARIN 5,000 UNIT/ML VIAL 5000 UNIT SUBCUT (09:17)
[2021-11-07] MEDS: CEFDINIR 300 MG CAPSULE PO (09:17)
[2021-11-07] MEDS: DULOXETINE 20 MG CAPSULE PO (09:18)
[2021-11-07] MEDS: predniSONE 20 MG TABLET 40 MG PO (09:18)
[2021-11-07 09:29] LABS: COVID19 -Nasal RAPID Negative (Negative)
[2021-11-07] MEDS: AZITHROMYCIN 250 MG TABLET 500 MG PO (09:29)
--- NOTE | 2021-11-07 10:00 | PC.NURSE ---
At 1000 today pt was wheeled out by transporter from [facility], pt has all his belongings, and will meet his daughter at the facility in [place] today.
--- NOTE | 2021-11-07 13:07 | CM.DPNOTE ---
DC Note DC to [facility] this morning. Cabulance transport was arranged yesterday through [employer], p/u at 1015 Faxed completed and signed med list, PASRR and DC Summary to [facility] and confirmed receipt w/William in admissions. Plan: DC to [facility] via cabulance this morning; patient and dtr Nessa aware and agreeable to plan JW
== END 2021-11-07 10:02 | DRG 871 ==
LOC: ED 11-02 01:36 → AC 11-02 01:45 → ICU 11-02 12:53 → AC 11-03 15:09
PROVIDERS: Internal Medicine; Admitting Provider Internal Medicine; Emergency Provider Emergency Medicine; Family Provider Student in an Organized Health Care Education/Training Program; PCP Internal Medicine; Referring Provider Emergency Medicine; Visit Provider Internal Medicine
DX: A41.9 Sepsis, unspecified organism (principal); J96.01 Acute respiratory failure with hypoxia; J96.02 Acute respiratory failure with hypercapnia; J18.9 Pneumonia, unspecified organism; G93.41 Metabolic encephalopathy; N17.9 Acute kidney failure, unspecified; R65.20 Severe sepsis without septic shock; E86.1 Hypovolemia; I95.9 Hypotension, unspecified; F32.A Depression, unspecified; K21.9 Gastro-esophageal reflux disease without esophagitis; N40.0 Benign prostatic hyperplasia without lower urinary tract symptoms; I10 Essential (primary) hypertension; Z87.891 Personal history of nicotine dependence; Z20.822 Contact with and (suspected) exposure to COVID-19
CPT/HCPCS: 36415; 36600; 71045; 71275; 76770; 80048; 80053; 81001; 82550; 82553; 82570; 82805; 83605; 83735; 83880; 84145; 84300; 84484; 85025; 85027; 85379; 87040; 87086; 87633; 87635; 87797; 93005; 93010; 93306; 94640; 94660; 94760; 96365; 96367; 96375; 97116; 97129; 97161; 97166; 97530; 97535; 99285; C9803; A9270; J1644; J1940; J1956; J2185; J2930; Q9967

== ENCOUNTER 2021-12-24 09:19 | Inpatient (IN) | payer OTHER, SELFPAY ==
[2021-11-02 02:15] VITALS: PULSE 65; RESP 32; O2SAT 94
[2021-11-02 13:00] VITALS: BMI 35.5
[2021-12-24] VITALS (40 sets, daily range): BP systolic 113–189; BP diastolic 55–86; PULSE 54–87; RESP 10–43; TEMP 36.6–37.3; O2SAT 72–99; BMI 42.0
--- NOTE | 2021-12-24 09:35 | DI.RAD.S_ITS ---
PROCEDURE: XR CHEST 1V INDICATIONS: short of breath TECHNIQUE: One view of the chest was acquired. COMPARISON: [facility], CR, XR CHEST 1V, 11/02/2021, 7:51. FINDINGS: Surgical changes and devices: None. Lungs and pleura: Mild increased pulmonary vascularity. There is blunting of the left costophrenic angle. Mediastinum: Mediastinal contours appear normal. Heart size is normal. Bones and chest wall: No suspicious bony lesions. Overlying soft tissues appear unremarkable. IMPRESSION: Increased vascularity with blunting of the costophrenic angle most consistent with edema and trace effusion. Dictated by: Amy Sauer M.D. on 12/24/2021 at 8:49 Approved by: Amy Sauer M.D. on 12/24/2021 at 8:50
[2021-12-24] MEDS: NALOXONE 0.4 MG/ML VIAL IV ×3 (09:37→11:30)
--- NOTE | 2021-12-24 09:53 | ED_ITS ---
HPI - SOB/Dyspnea General Chief Complaint: Shortness of Breath/Dyspnea Time Seen by Provider: 12/24/21 09:32 History of Present Illness HPI Narrative: Patient is an 86-year-old male with history of obstructive sleep apnea, dementia, hypertension, hyperlipidemia, CVA, GERD, history of GI bleed, COPD is presenting today with shortness of breath and decreasing mental status. He was started on oxycodone ago for ongoing pain. He took 2 last night EMS was called his he was maybe having some difficulty breathing. EMS evaluated him he did not want to be transported is. He took 2 more around 5:00 a.m. and EMS transported here to the ED. He supposedly was slightly hypoxic a for them but overall just feeling weird. He is overall a poor historian. He is found to be hypoxic here in the emergency department, and somnolent. He was given Narcan 0.4 mg he did wake up and become more responsive her quickly fell back asleep. Admitted to the hospital on November 01 through November 07 for acute kidney injury and hypoxia. Was normal per daughter yesterday. Devolped cough last night. Related Data Home Medications Medication Instructions Recorded Confirmed famotidine 20 mg tablet 20 mg PO BID 01/01/21 11/02/21 cholecalciferol (vitamin D3) 50 2,000 unit PO DAILY 02/13/21 11/02/21 mcg (2,000 unit) capsule (Vitamin D3) Saccharomyces boulardii 250 mg 250 mg PO DAILY 11/02/21 11/02/21 capsule (Florastor) amlodipine 10 mg tablet 10 mg PO DAILY 11/02/21 11/02/21 melatonin 5 mg tablet 5 mg PO BEDTIME 11/02/21 11/02/21 Previous Rx's Medication Instructions Recorded glucometer and test strips #1 ea 02/08/21 pantoprazole 40 mg tablet,delayed 40 mg PO BID #180 tab 08/28/21 release allopurinol 100 mg tablet 100 mg PO DAILY #90 tab 10/23/21 atenolol 50 mg tablet 50 mg PO BID #180 tab 10/23/21 duloxetine 20 mg capsule,delayed 20 mg PO DAILY #90 cap 10/23/21 release tamsulosin 0.4 mg capsule 0.4 mg PO BEDTIME #90 cap 10/23/21 melatonin 3 mg tablet 6 mg PO BEDTIME #30 tab 11/07/21 Allergies Allergy/AdvReac Type Severity Reaction Status Date / Time No Known Drug Allergies Allergy Verified 12/24/21 09:55 Review of Systems Review of Systems ROS Unobtainable: Unobtainable due to medical condition Patient History Medical History Acquired hypothyroidism (09/16/16) Actinic keratosis Basal cell carcinoma 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) Colon polyps CVA (cerebral vascular accident) Depression (06/29/15) Erectile dysfunction (02/12/16) Essential hypertension (06/29/15) Gout Hemorrhoids Hyperlipemia Insomnia Obstructive sleep apnea Osteoarthritis Primary insomnia (09/16/16) Squamous cell carcinoma Surgical History History of ectropion repair (10/2017) Hx of surgical procedure Family History Family/Other Unknown family medical history Social History household members: none Smoking Status: Former smoker alcohol intake: never Smoking Status: Former smoker tobacco type: cigarettes alcohol intake frequency: 0-2 drinks per day Alcohol type: hard liquor Substance Use Type: does not use Exam Initial Vital Signs Initial Vital Signs: Vital Signs Temperature 99.2 F 12/24/21 09:55 Pulse Rate 87 12/24/21 09:55 Respiratory Rate 28 H 12/24/21 09:55 Blood Pressure 153/67 H 12/24/21 09:55 Pulse Oximetry 80 L 12/24/21 09:55 GENERAL: 86-year-old male initially awake but falls asleep responsive to pain and voice HEENT: Head atraumatic,EOMI, pupils reactive, face symmetric, moist mucous membranes CARDIOVASCULAR: Regular rate and rhythm without murmurs, rubs or gallops. RESPIRATORY: Rales bilaterally tachypneic shallow breathing ABDOMEN: Soft, nontender. Normoactive bowel sounds all 4 quadrants. No guarding or rebound. EXTREMITIES: Normal range of motion, no clubbing or edema. Neurovascularly intact NEUROLOGICAL: Alert and oriented x2. Moving all extremities SKIN: Warm, dry, no laceration, no petechiae, no rashes or lesions. Scores GCS Valery coma scale eye opening: To pressure Lowden coma scale verbal response: Orientated (to person) Valery coma scale motor response: Localising Valery coma scale total score: 12 Course Orders Ordered: ED Orders 12/24/21 10:50 Blood Culture Stat Acetaminophen (Acetaminophen 325 Mg Tablet) 650 mg PO Q6HR PRN PRN Reason: fever, pain Albuterol (Albuterol 2.5 Mg/3 Ml Neb (Adult)) 2.5 mg INH [id number] PRN PRN Reason: Shortness Of Breath Albuterol/Ipratropium (Albuterol/Ipratropium 3 Ml Ampul) 3 ml INH [id number] BHAVIN Last Admin: 12/24/21 14:17 Dose: 3 ml Documented by: MICHELLE Dexamethasone (Dexamethasone 10 Mg/Ml Vial) 6 mg IV DAILY BHAVIN Enoxaparin Sodium (Enoxaparin 40 Mg/0.4 Ml Syringe) 40 mg SUBCUT DAILY BHAVIN Furosemide (Furosemide 40 Mg/4 Ml Vial) 40 mg IV DAILY BHAVIN Haloperidol (Haloperidol 5 Mg/Ml Vial) 2 mg IV Q4HR PRN PRN Reason: Agitation Last Admin: 12/24/21 15:51 Dose: 2 mg Documented by: NICOLA Remdesivir 100 mg/ Sodium (Chloride) 250 mls @ 250 mls/hr IV DAILY BHAVIN Stop: 01/02/22 09:59 dexmedeTOMIDine in 0.9 % NaCL (Precedex) 400 mcg in 100 mls @ 5.725 mls/hr IV TITRATE BHAVIN; Protocol Last Titration: 12/24/21 18:58 Dose: 0.4 mcg/kg/hr, 11.45 mls/hr Documented by: Titration: 12/24/21 17:57 Dose: 0.5 mcg/kg/hr, 14.313 mls/hr Documented by: Titration: 12/24/21 16:56 Dose: 0.6 mcg/kg/hr, 17.175 mls/hr Documented by: Titration: 12/24/21 16:45 Dose: 0.4 mcg/kg/hr, 11.45 mls/hr Documented by: Admin: 12/24/21 16:40 Dose: 0.2 mcg/kg/hr, 5.725 mls/hr Documented by: TARAS Lorazepam (Lorazepam 2 Mg/Ml Inj) 1 mg IV Q4HR PRN PRN Reason: Agitation Naloxone HCl (Naloxone 0.4 Mg/Ml Vial) 0.2 mg IV Q2MIN PRN PRN Reason: Opiate Reversal Nystatin (Nystatin Cream 30 Gm) 1 applic TOP BID BHAVIN Last Admin: 12/24/21 14:02 Dose: 1 applic Documented by: TARAS Ondansetron HCl (Ondansetron 4 Mg/2 Ml Inj) 4 mg IV Q8HR PRN PRN Reason: Nausea And Vomiting Discontinued Medications Dexamethasone (Dexamethasone 10 Mg/Ml Vial) 6 mg IV NOW ONE Stop: 12/24/21 10:22 Last Admin: 12/24/21 10:55 Dose: 6 mg Documented by: ORLIN Remdesivir 200 mg/ Sodium (Chloride) 250 mls @ 250 mls/hr IV NOW ONE Stop: 12/24/21 10:22 Last Infusion: 12/24/21 12:24 Dose: 0 mls/hr Documented by: Admin: 12/24/21 10:58 Dose: 250 mls/hr Documented by: ORLIN Naloxone HCl (Naloxone 0.4 Mg/Ml Vial) 0.4 mg IV NOW ONE Stop: 12/24/21 11:30 Last Admin: 12/24/21 11:30 Dose: 0.4 mg Documented by: ORLIN Vital Signs Vital signs: Vital Signs - 8 hr 12/24/21 11:30 Pulse Rate 80 Respiratory Rate 28 H Blood Pressure 164/75 H Pulse Oximetry 96 MDM - SOB/Dyspnea Lab Data Result diagrams: 12/24/21 09:35 12/24/21 09:35 Labs: Lab Results 12/24/21 12/24/21 12/24/21 Range/Units 09:29 09:35 09:35 WBC 9.3 (4.5-11.0) X10^3/uL RBC 4.30 L (4.5-5.9) X10^6/uL Hgb 12.1 L (13.5-17.5) g/dL Hct 36.5 L (41-53) % MCV 85.0 (80-100) fL MCH 28.1 (26-34) PG MCHC 33.1 (30-36) % RDW 21.5 H (11.6-14.8) % Plt Count 185 (150-400) X10^3/uL Neut % (Auto) 80.7 H (50-75) % Lymph % (Auto) 8.7 L (25-40) % Stone % (Auto) 9.8 (3-14) % Eos % (Auto) 0.3 L (2-4) % Baso % (Auto) 0.5 (0-2) % Neut # (Auto) 7500 H (7928-7906) /uL Lymph # (Auto) 800 L (0284-5023) /uL Stone # (Auto) 900 (0-900) /uL Eos # (Auto) 0 (0-450) /uL Baso # (Auto) 0 (0-100) /uL RBC Morphology Not Reportable Anisocytosis 1+ H PT 10.9 (10.1-12.7) SECONDS INR 1.0 (0.9-1.3) APTT 34 (26.4-36.2) SECONDS D-Dimer (<230) ng/mL ABG pH (7.35-7.45) ABG pCO2 (35-45) mmHg ABG pO2 (80-100) mmHg ABG HCO3 (22-26) mmol/L ABG Total CO2 (21-31) mmol/L ABG O2 Saturation (95-100) % ABG Base Excess (-2-2) mmol/L FiO2 Sodium (137-145) mmol/L Potassium (3.4-5.1) mmol/L Chloride (98-107) mmol/L Carbon Dioxide (22-32) mmol/L BUN (9-20) mg/dL Creatinine (0.66-1.25) mg/dL Estimated GFR (>60) mL/min BUN/Creatinine Ratio (6-22) Glucose (80-110) mg/dL Lactate (0.7-2.1) mmol/L Calcium (8.4-10.2) mg/dL Total Bilirubin (0.2-1.3) mg/dL AST (17-59) IU/L ALT (<50) IU/L Alkaline Phosphatase (38-126) U/L Ammonia (9-30) umol/L Total Creatine Kinase (55-170) U/L CK-MB (CK-2) CK-MB (CK-2) Rel Index Troponin I (0.01-0.034) ng/mL NT-Pro-B Natriuret Pep (<450) pg/mL Total Protein (6.3-8.2) g/dL Albumin (3.5-5.0) g/dL Globulin (1.7-4.1) g/dL Albumin/Globulin Ratio (1.0-2.8) Lipase (23-300) U/L Procalcitonin (<0.5) ng/mL Salicylates (<20) mg/dL Acetaminophen (10-30) ug/mL Ethyl Alcohol ( - 10) mg/dL SARS-CoV-2 (PCR) Positive H (Negative) 12/24/21 12/24/21 12/24/21 Range/Units 09:35 09:35 09:35 WBC (4.5-11.0) X10^3/uL RBC (4.5-5.9) X10^6/uL Hgb (13.5-17.5) g/dL Hct (41-53) % MCV (80-100) fL MCH (26-34) PG MCHC (30-36) % RDW (11.6-14.8) % Plt Count (150-400) X10^3/uL Neut % (Auto) (50-75) % Lymph % (Auto) (25-40) % Stone % (Auto) (3-14) % Eos % (Auto) (2-4) % Baso % (Auto) (0-2) % Neut # (Auto) (3101-4659) /uL Lymph # (Auto) (2451-3885) /uL Stone # (Auto) (0-900) /uL Eos # (Auto) (0-450) /uL Baso # (Auto) (0-100) /uL RBC Morphology Anisocytosis PT (10.1-12.7) SECONDS INR (0.9-1.3) APTT (26.4-36.2) SECONDS D-Dimer (<230) ng/mL ABG pH (7.35-7.45) ABG pCO2 (35-45) mmHg ABG pO2 (80-100) mmHg ABG HCO3 (22-26) mmol/L ABG Total CO2 (21-31) mmol/L ABG O2 Saturation (95-100) % ABG Base Excess (-2-2) mmol/L FiO2 Sodium 138 (137-145) mmol/L Potassium 4.8 (3.4-5.1) mmol/L Chloride 100 (98-107) mmol/L Carbon Dioxide 33 H (22-32) mmol/L BUN 15 (9-20) mg/dL Creatinine 0.91 (0.66-1.25) mg/dL Estimated GFR > 60 (>60) mL/min BUN/Creatinine Ratio 16.5 (6-22) Glucose 113 H (80-110) mg/dL Lactate 1.3 (0.7-2.1) mmol/L Calcium 8.6 (8.4-10.2) mg/dL Total Bilirubin 0.3 (0.2-1.3) mg/dL AST 27 (17-59) IU/L ALT 11 (<50) IU/L Alkaline Phosphatase 87 (38-126) U/L Ammonia < 9 L (9-30) umol/L Total Creatine Kinase 29 L (55-170) U/L CK-MB (CK-2) TNP CK-MB (CK-2) Rel Index TNP Troponin I < 0.012 (0.01-0.034) ng/mL NT-Pro-B Natriuret Pep 695 H (<450) pg/mL Total Protein 7.6 (6.3-8.2) g/dL Albumin 3.9 (3.5-5.0) g/dL Globulin 3.7 (1.7-4.1) g/dL Albumin/Globulin Ratio 1.1 (1.0-2.8) Lipase 373 H (23-300) U/L Procalcitonin (<0.5) ng/mL Salicylates < 1.0 (<20) mg/dL Acetaminophen < 10 (10-30) ug/mL Ethyl Alcohol < 10 ( - 10) mg/dL SARS-CoV-2 (PCR) (Negative) 12/24/21 12/24/21 12/24/21 Range/Units 09:35 09:35 09:53 WBC (4.5-11.0) X10^3/uL RBC (4.5-5.9) X10^6/uL Hgb (13.5-17.5) g/dL Hct (41-53) % MCV (80-100) fL MCH (26-34) PG MCHC (30-36) % RDW (11.6-14.8) % Plt Count (150-400) X10^3/uL Neut % (Auto) (50-75) % Lymph % (Auto) (25-40) % Stone % (Auto) (3-14) % Eos % (Auto) (2-4) % Baso % (Auto) (0-2) % Neut # (Auto) (9711-5601) /uL Lymph # (Auto) (6745-6281) /uL Stone # (Auto) (0-900) /uL Eos # (Auto) (0-450) /uL Baso # (Auto) (0-100) /uL RBC Morphology Anisocytosis PT (10.1-12.7) SECONDS INR (0.9-1.3) APTT (26.4-36.2) SECONDS D-Dimer 550 H (<230) ng/mL ABG pH 7.26 L* (7.35-7.45) ABG pCO2 72.6 H* (35-45) mmHg ABG pO2 198 H (80-100) mmHg ABG HCO3 33 H (22-26) mmol/L ABG Total CO2 35 H (21-31) mmol/L ABG O2 Saturation 99 (95-100) % ABG Base Excess 6.0 H (-2-2) mmol/L FiO2 100 Sodium (137-145) mmol/L Potassium (3.4-5.1) mmol/L Chloride (98-107) mmol/L Carbon Dioxide (22-32) mmol/L BUN (9-20) mg/dL Creatinine (0.66-1.25) mg/dL Estimated GFR (>60) mL/min BUN/Creatinine Ratio (6-22) Glucose (80-110) mg/dL Lactate (0.7-2.1) mmol/L Calcium (8.4-10.2) mg/dL Total Bilirubin (0.2-1.3) mg/dL AST (17-59) IU/L ALT (<50) IU/L Alkaline Phosphatase (38-126) U/L Ammonia (9-30) umol/L Total Creatine Kinase (55-170) U/L CK-MB (CK-2) CK-MB (CK-2) Rel Index Troponin I (0.01-0.034) ng/mL NT-Pro-B Natriuret Pep (<450) pg/mL Total Protein (6.3-8.2) g/dL Albumin (3.5-5.0) g/dL Globulin (1.7-4.1) g/dL Albumin/Globulin Ratio (1.0-2.8) Lipase (23-300) U/L Procalcitonin 0.13 (<0.5) ng/mL Salicylates (<20) mg/dL Acetaminophen (10-30) ug/mL Ethyl Alcohol ( - 10) mg/dL SARS-CoV-2 (PCR) (Negative) Imaging Data Chest x-ray: Radiologist's Impression: Klever George MR#: [id number] : 1935 Acct:[id number] Age/Sex: 86 / M Date of Service: 12/24/21 Loc: ED Accession Number: [id number] ?? Procedure: XR chest 1V Ordering Provider: Kary Christian D.O. PROCEDURE:? XR CHEST 1V ? INDICATIONS:? short of breath ? TECHNIQUE:? One view of the chest was acquired.? ? COMPARISON:? [facility], , XR CHEST 1V, 11/02/2021, 7:51. ? FINDINGS:? ? Surgical changes and devices:? None.? ? Lungs and pleura:? Mild increased pulmonary vascularity.? There is blunting of the left costophrenic angle. ? Mediastinum:? Mediastinal contours appear normal.? Heart size is normal.? ? Bones and chest wall:? No suspicious bony lesions.? Overlying soft tissues appear unremarkable.? ? IMPRESSION:? Increased vascularity with blunting of the costophrenic angle most consistent with edema and trace effusion. ? ? Dictated by: Amy Sauer M.D. on 12/24/2021 at 8:49 ?? CT scan - head: Radiologist's Impression: : Klever George MR#: [id number] : 1935 Acct:[id number] Age/Sex: 86 / M Date of Service: 12/24/21 [facility] Accession Number: [id number] ?? Procedure: CT head/brain wo con Ordering Provider: Severino Piedra MD PROCEDURE:? CT HEAD/BRAIN WO CON ? INDICATIONS:? altered mental status ? TECHNIQUE:? Noncontrast 4.5 mm thick angled axial sections acquired from the foramen magnum to the vertex, with coronal and sagittal reformats.? For radiation dose reduction, the following was used:? automated exposure control, adjustment of mA and/or kV according to patient size.? ? COMPARISON:? [facility], CT, CT HEAD/BRAIN WO CON, 02/13/2021, 15:37. ? FINDINGS:? Image quality:? Excellent.? ? CSF spaces:? Basal cisterns are patent.? No extra-axial fluid collections.? The ventricles are symmetric in size and shape.? ? Brain:? No intracranial bleeds or masses.? There is cerebral volume loss for age, with resultant ventricular and sulcal prominence.? There are periventricular and deep white matter chronic small vessel ischemic changes.? Old right frontal deep white matter infarct, possibly a watershed distribution infarct.? Old right basal ganglia lacunar infarct.? There is intracranial internal carotid artery atherosclerosis.? ? Skull and face:? Calvarium and visualized facial bones appear intact, without suspicious lesions.? ? Sinuses:? Visual left maxillary sinus mucosal thickening. ? IMPRESSION:? ? 1. Old right-sided infarcts. ? 2. No evidence acute stroke, hemorrhage, or mass.? ? ? Dictated by: Humble Franco M.D. on 12/24/2021 at 12:38 ? ? Approved by: Humble Franco M.D. on 12/24/2021 at 12:39 ? ECG Data Interpretation: Sinus rhythm rate 85 CO interval 178 QRS 86 QTC [address] changes MDM Narrative Medical decision making narrative: Patient is generally a poor historian. Based on his start of opiate medication in decreased mental status had a he was given Narcan. The 1st dose he actually responded to quite well and became much more awake and alert. ABG was done wh ich showed significant hypercapnia he was on a non-rebreather at that time no significant hypoxia. However after about 10 minutes he became more somnolent again 2nd dose of Narcan was given but very minimal response. She was placed on BiPAP. He also found to be COVID positive. After speaking with daughter she states that after patient's discharge he went to a rehab facility and at that rehab facility back in October of 2021 there was a COVID outbreak. Unclear if he had COVID at that time. She says he has not been ill recently. The patient's lungs initially sounded wet he is given a dose of Lasix over the and he is 695 which is significantly lower than what it was in October. Dr. Piedra in ED to see and evaluate patient. Accepts for admission but requests head CT prior to admission, and also a 3rd dose of Narcan just to see if he responds. Patient did not respond after dose of Narcan. Head CT is fortunately negative. While patient is on BiPAP he actually becomes more awake but is still sleeping however more arousable to voice. Discharge Plan Departure Patient Disposition: Admitted As Inpatient Clinical Impression: COVID-19, Acute and chronic respiratory failure with hypercapnia Admit Date/Time: 12/24/21 11:31 Admit Provider: Severino Piedra
[2021-12-24 10:02] LABS: Add Manual Diff / Slide Review NO; Basophils Absolute Auto 0 /uL (0-100); Basophils Percent Auto 0.5 % (0-2); Eosinophils Absolute Auto 0 /uL (0-450); Eosinophils Percent Auto 0.3 % (2-4); Hematocrit 36.5 % (41-53); Hemoglobin 12.1 g/dL (13.5-17.5); Lymphocytes Absolute Auto 800 /uL (1100-4500); Lymphocytes Percent Auto 8.7 % (25-40); Mean Corpuscular HGB Conc 33.1 % (30-36); Mean Corpuscular Hemoglobin 28.1 PG (26-34); Monocytes Absolute Auto 900 /uL (0-900); Monocytes Percent Auto 9.8 % (3-14); Neutrophils Absolute Auto 7500 /uL (1500-7000); Neutrophils Percent Auto 80.7 % (50-75); Platelet Count 185 X10^3/uL (150-400); Red Cell Distribution Width 21.5 % (11.6-14.8); White Blood Cell Count 9.3 X10^3/uL (4.5-11.0)
[2021-12-24 10:09] LABS: Prothrombin Time 10.9 SECONDS (10.1-12.7)
[2021-12-24 10:12] LABS: Ammonia (NH3) < 9 umol/L (9-30); PTT Partial Thromboplastin Tim 34 SECONDS (26.4-36.2)
[2021-12-24 10:13] LABS: Lactate (Lactic Acid) 1.3 mmol/L (0.7-2.1)
--- NOTE | 2021-12-24 10:13 | PC.NURSE ---
Narcan 0.4mg IV push given at 1009
[2021-12-24 10:19] LABS: Acetaminophen < 10 ug/mL (10-30); Alanine Aminotransferase 11 IU/L (<50); Albumin 3.9 g/dL (3.5-5.0); Albumin Globulin Ratio 1.1 (1.0-2.8); Alkaline Phosphatase 87 U/L (38-126); Aspartate Aminotransferase 27 IU/L (17-59); BUN Creatinine Ratio 16.5 (6-22); Bilirubin Total 0.3 mg/dL (0.2-1.3); Blood Urea Nitrogen 15 mg/dL (9-20); Calcium 8.6 mg/dL (8.4-10.2); Carbon Dioxide 33 mmol/L (22-32); Chloride 100 mmol/L (98-107); Creatine Kinase 29 U/L (55-170); Estimated Glomerular Filt Rate > 60 mL/min (>60); Ethanol (ETOH) < 10 mg/dL; Globulin 3.7 g/dL (1.7-4.1); Glucose 113 mg/dL (80-110); HEMOLYSIS < 15 (0-50); Lipase 373 U/L (23-300); Potassium 4.8 mmol/L (3.4-5.1); Salicylate < 1.0 mg/dL (<20); Sodium 138 mmol/L (137-145); Total Protein 7.6 g/dL (6.3-8.2)
[2021-12-24 10:20] LABS: D Dimer 550 ng/mL (<230)
[2021-12-24 10:20] LABS: COVID19 -Nasal RAPID POSITIVE (Negative)
[2021-12-24 10:30] LABS: NT-proBNP (BNP-Adult 18+) 695 pg/mL (<450); Troponin I < 0.012 ng/mL (0.01-0.034)
[2021-12-24 10:33] LABS: Anisocytosis 1+
[2021-12-24 10:35] LABS: Procalcitonin 0.13 ng/mL (<0.5)
[2021-12-24 10:37] LABS: HCO3 ABG 33 mmol/L (22-26); PCO2 ABG 72.6 mmHg (35-45); PO2 ABG 198 mmHg (80-100); TCO2 ABG 35 mmol/L (21-31); pH ABG 7.26 (7.35-7.45)
[2021-12-24 10:38] LABS: Fractionated Inspired Oxygen 100; Oxygen Saturation ABG 99 % (95-100)
[2021-12-24] MEDS: DEXAMETHASONE 10 MG/ML VIAL 6 MG IV (10:55)
[2021-12-24] MEDS: REMDESIVIR 200 MG in SODIUM CHLORIDE 0.9% 210 ML 250 ML IV (10:58)
[2021-12-24 12:03] LABS: HCO3 ABG 31 mmol/L (22-26); PCO2 ABG 54.6 mmHg (35-45); PO2 ABG 48 mmHg (80-100); TCO2 ABG 32 mmol/L (21-31); pH ABG 7.36 (7.35-7.45)
[2021-12-24 12:04] LABS: Fractionated Inspired Oxygen 21
--- NOTE | 2021-12-24 12:25 | DI.CT.S_ITS ---
PROCEDURE: CT HEAD/BRAIN WO CON INDICATIONS: altered mental status TECHNIQUE: Noncontrast 4.5 mm thick angled axial sections acquired from the foramen magnum to the vertex, with coronal and sagittal reformats. For radiation dose reduction, the following was used: automated exposure control, adjustment of mA and/or kV according to patient size. COMPARISON: [facility], CT, CT HEAD/BRAIN WO CON, 02/13/2021, 15:37. FINDINGS: Image quality: Excellent. CSF spaces: Basal cisterns are patent. No extra-axial fluid collections. The ventricles are symmetric in size and shape. Brain: No intracranial bleeds or masses. There is cerebral volume loss for age, with resultant ventricular and sulcal prominence. There are periventricular and deep white matter chronic small vessel ischemic changes. Old right frontal deep white matter infarct, possibly a watershed distribution infarct. Old right basal ganglia lacunar infarct. There is intracranial internal carotid artery atherosclerosis. Skull and face: Calvarium and visualized facial bones appear intact, without suspicious lesions. Sinuses: Visual left maxillary sinus mucosal thickening. IMPRESSION: 1. Old right-sided infarcts. 2. No evidence acute stroke, hemorrhage, or mass. Dictated by: Humble Franco M.D. on 12/24/2021 at 12:38 Approved by: Humble Franco M.D. on 12/24/2021 at 12:39
--- NOTE | 2021-12-24 13:06 | P.TELICUCN_ITS ---
History of Present Illness Consult details Date Patient Seen: 12/24/21 Chief complaint: SOB :: This patient was seen via real time interactive two-way audiovisual telecommunication. [facility] Medical History Acquired hypothyroidism (09/16/16) Actinic keratosis Basal cell carcinoma 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) Colon polyps CVA (cerebral vascular accident) Depression (06/29/15) Erectile dysfunction (02/12/16) Essential hypertension (06/29/15) Gout Hemorrhoids Hyperlipemia Insomnia Obstructive sleep apnea Osteoarthritis Primary insomnia (09/16/16) Squamous cell carcinoma Surgical History History of ectropion repair (10/2017) Hx of surgical procedure Family History Family/Other Unknown family medical history Social History household members: none Smoking Status: Former smoker Current Medications Current Medications Medications: Home Medications famotidine 20 mg tablet 20 mg PO BID 01/01/21 [History Confirmed 11/02/21] glucometer and test strips #1 ea 02/08/21 [Rx Confirmed 11/02/21] cholecalciferol (vitamin D3) 50 mcg (2,000 unit) capsule (Vitamin D3) 2,000 unit PO DAILY 02/13/21 [History Confirmed 11/02/21] pantoprazole 40 mg tablet,delayed release 40 mg PO BID #180 tab 08/28/21 [Rx Confirmed 11/02/21] allopurinol 100 mg tablet 100 mg PO DAILY #90 tab 10/23/21 [Rx Confirmed 11/02/21] atenolol 50 mg tablet 50 mg PO BID #180 tab 10/23/21 [Rx Confirmed 11/02/21] duloxetine 20 mg capsule,delayed release 20 mg PO DAILY #90 cap 10/23/21 [Rx Confirmed 11/02/21] tamsulosin 0.4 mg capsule 0.4 mg PO BEDTIME #90 cap 10/23/21 [Rx Confirmed 11/02/21] Saccharomyces boulardii 250 mg capsule (Florastor) 250 mg PO DAILY 11/02/21 [History Confirmed 11/02/21] amlodipine 10 mg tablet 10 mg PO DAILY 11/02/21 [History Confirmed 11/02/21] melatonin 5 mg tablet 5 mg PO BEDTIME 11/02/21 [History Confirmed 11/02/21] melatonin 3 mg tablet 6 mg PO BEDTIME #30 tab 11/07/21 [Rx] Exam Vital Signs (past 8 hours): - 12/24/21 09:55 12/24/21 10:05 12/24/21 10:13 Temperature 99.2 F Pulse Rate 87 85 78 Respiratory Rate 28 H 35 H 17 Blood Pressure 153/67 H 157/72 H Pulse Oximetry 80 L 95 91 12/24/21 10:30 12/24/21 11:00 12/24/21 11:01 Temperature Pulse Rate 83 83 82 Respiratory Rate 17 28 H 11 L Blood Pressure 154/70 H 189/86 H Pulse Oximetry 95 96 96 12/24/21 11:30 12/24/21 11:41 12/24/21 12:00 Temperature Pulse Rate 80 77 80 Respiratory Rate 28 H 30 H 20 Blood Pressure 164/75 H 163/76 H 166/75 H Pulse Oximetry 96 95 89 L Fraction of Inspired Oxygen 28 Oxygen Delivery Method BiPAP Oxygen Flow Rate 4 Objective Labs Result Diagrams: 12/24/21 09:35 12/24/21 09:35 Labs: Laboratory Results - last 24 hr 12/24/21 12/24/21 12/24/21 09:29 09:35 09:35 WBC 9.3 RBC 4.30 L Hgb 12.1 L Hct 36.5 L MCV 85.0 MCH 28.1 MCHC 33.1 RDW 21.5 H Plt Count 185 Neut % (Auto) 80.7 H Lymph % (Auto) 8.7 L [place] % (Auto) 9.8 Eos % (Auto) 0.3 L Baso % (Auto) 0.5 Neut # (Auto) 7500 H Lymph # (Auto) 800 L [place] # (Auto) 900 Eos # (Auto) 0 Baso # (Auto) 0 RBC Morphology Not Reportable Anisocytosis 1+ H PT 10.9 INR 1.0 APTT 34 D-Dimer ABG pH ABG pCO2 ABG pO2 ABG HCO3 ABG Total CO2 ABG O2 Saturation ABG Base Excess FiO2 Sodium Potassium Chloride Carbon Dioxide BUN Creatinine Estimated GFR BUN/Creatinine Ratio Glucose Lactate Calcium Total Bilirubin AST ALT Alkaline Phosphatase Ammonia Total Creatine Kinase CK-MB (CK-2) CK-MB (CK-2) Rel Index Troponin I NT-Pro-B Natriuret Pep Total Protein Albumin Globulin Albumin/Globulin Ratio Lipase Procalcitonin Salicylates Acetaminophen Ethyl Alcohol SARS-CoV-2 (PCR) Positive H 12/24/21 12/24/21 12/24/21 09:35 09:35 09:35 WBC RBC Hgb Hct MCV MCH MCHC RDW Plt Count Neut % (Auto) Lymph % (Auto) [place] % (Auto) Eos % (Auto) Baso % (Auto) Neut # (Auto) Lymph # (Auto) [place] # (Auto) Eos # (Auto) Baso # (Auto) RBC Morphology Anisocytosis PT INR APTT D-Dimer ABG pH ABG pCO2 ABG pO2 ABG HCO3 ABG Total CO2 ABG O2 Saturation ABG Base Excess FiO2 Sodium 138 Potassium 4.8 Chloride 100 Carbon Dioxide 33 H BUN 15 Creatinine 0.91 Estimated GFR > 60 BUN/Creatinine Ratio 16.5 Glucose 113 H Lactate 1.3 Calcium 8.6 Total Bilirubin 0.3 AST 27 ALT 11 Alkaline Phosphatase 87 Ammonia < 9 L Total Creatine Kinase 29 L CK-MB (CK-2) TNP CK-MB (CK-2) Rel Index TNP Troponin I < 0.012 NT-Pro-B Natriuret Pep 695 H Total Protein 7.6 Albumin 3.9 Globulin 3.7 Albumin/Globulin Ratio 1.1 Lipase 373 H Procalcitonin Salicylates < 1.0 Acetaminophen < 10 Ethyl Alcohol < 10 SARS-CoV-2 (PCR) 12/24/21 12/24/21 12/24/21 09:35 09:35 09:53 WBC RBC Hgb Hct MCV MCH MCHC RDW Plt Count Neut % (Auto) Lymph % (Auto) [place] % (Auto) Eos % (Auto) Baso % (Auto) Neut # (Auto) Lymph # (Auto) [place] # (Auto) Eos # (Auto) Baso # (Auto) RBC Morphology Anisocytosis PT INR APTT D-Dimer 550 H ABG pH 7.26 L* ABG pCO2 72.6 H* ABG pO2 198 H ABG HCO3 33 H ABG Total CO2 35 H ABG O2 Saturation 99 ABG Base Excess 6.0 H FiO2 100 Sodium Potassium Chloride Carbon Dioxide BUN Creatinine Estimated GFR BUN/Creatinine Ratio Glucose Lactate Calcium Total Bilirubin AST ALT Alkaline Phosphatase Ammonia Total Creatine Kinase CK-MB (CK-2) CK-MB (CK-2) Rel Index Troponin I NT-Pro-B Natriuret Pep Total Protein Albumin Globulin Albumin/Globulin Ratio Lipase Procalcitonin 0.13 Salicylates Acetaminophen Ethyl Alcohol SARS-CoV-2 (PCR) 12/24/21 11:48 WBC RBC Hgb Hct MCV MCH MCHC RDW Plt Count Neut % (Auto) Lymph % (Auto) [place] % (Auto) Eos % (Auto) Baso % (Auto) Neut # (Auto) Lymph # (Auto) [place] # (Auto) Eos # (Auto) Baso # (Auto) RBC Morphology Anisocytosis PT INR APTT D-Dimer ABG pH 7.36 ABG pCO2 54.6 H ABG pO2 48 L* ABG HCO3 31 H ABG Total CO2 32 H ABG O2 Saturation 93 L ABG Base Excess 5.0 H FiO2 21 Sodium Potassium Chloride Carbon Dioxide BUN Creatinine Estimated GFR BUN/Creatinine Ratio Glucose Lactate Calcium Total Bilirubin AST ALT Alkaline Phosphatase Ammonia Total Creatine Kinase CK-MB (CK-2) CK-MB (CK-2) Rel Index Troponin I NT-Pro-B Natriuret Pep Total Protein Albumin Globulin Albumin/Globulin Ratio Lipase Procalcitonin Salicylates Acetaminophen Ethyl Alcohol SARS-CoV-2 (PCR) Assessment & Plan Assessment & Plan narrative: pateint seen withbedside nurse, discussed with Dr. Jang chart/labs/imaing reivewed 86 year old male with admitted to ICU for covid PNA currently afebrile HD stable, requiring high flow NC abg showing hypercapneic resp failure cxr diffuse infiltrates suggest -avoid opiods/benzos -bipap for now, goal sat abovce 92%, pH above 7.35 -repeat abg/cxr prn , adjust bipap as needed -nebs/steroids -remdesevir/baricitinib =serial keg/trop -check echo -glucose 104-180s -monitor ints/outs -replace lytes pn -gi/dvt ppx -please address goals of care and severity of illnes with family/patient -please call eICU if condition changes Time Spent With Patient Critical Care time: I spent a total of [] minutes of critical care time on this patient's care today; this time is exclusive of procedural time.
[2021-12-24] MEDS: NYSTATIN CREAM 30 GM 1 APPLIC TOP ×2 (14:02→21:30)
[2021-12-24] MEDS: ALBUTEROL/IPRATROPIUM 3 ML AMPUL INH ×2 (14:17→20:00)
[2021-12-24] MEDS: HALOPERIDOL 5 MG/ML VIAL 2 MG IV (15:51)
--- NOTE | 2021-12-24 16:14 | PC.NURSE ---
Addendum entered by Maeve Stoddard R.N. 12/24/21 17:50: 1750: Pt now resting in bed with eyes closed. Precedex infusing at 0.6 mcg/kg/hr. Will continue to monitor. Original Note: 2274: Grout Pump Operator and HIM CODER in room to place brief on pt, who was incontinent of urine earlier in the shift. PT awoke and was immediately combative and resistant to care, stating I don't want to be in the [facility], I'll punch you in the gut, get the fuck away from me. Pt removed bipap mask and monitoring equipment and refused repeated attempts to reapply. Pt requested to sit on edge of bed and then refused to return to bed. Grout Pump Operator explained that sitting on edge of bed without staff was unsafe and placed him at high risk of falling. Pt continued with vulgarities and threats of violence against staff. Grout Pump Operator attempted multiple times to explain to patient rationale for treatment and monitoring, pt contiunued with behaviors. MD alerted by other staff members, order received for IV haldol. Administered with no appreciable effect. Pt eventually agreaable and returned to bed, only to immediately remove all monitoring equipment again and attempt to sit on edge of bed. Hospitalist requested that headline writer call teleintensivist for suggestions. Dr Mix ordered precedex. Will initiate JUAN and monitor results.
[2021-12-24] MEDS: dexmedeTOMIDine in 0.9 % NaCL 400 MCG/100 ML PLAST..BAG 5.725 MCG IV (16:40)
[2021-12-24 17:29] LABS: Oxygen Saturation ABG 81 % (95-100)
--- NOTE | 2021-12-24 20:50 | PM.ICURNDS ---
- :: This patient was seen via real time interactive two-way audiovisual telecommunication. Note: pt with ARDS due to covid, on bipap. PRecedex started due ot worsening deiirium , he is more calm now, and is more lucid. Continue to wean fio2 as toerlated. agree with GOC discussions given high liklihood of a poor outcome if paced on MV. COVID tx protocol
--- NOTE | 2021-12-24 21:06 | P.HP_ITS ---
History of Present Illness History of Present Illness Date Patient Seen: 12/24/21 Time Patient Seen: 11:00 Chief complaint: SOB Narrative: Mr. George is an 86M with PMH NATTY, dementia, HTN, HL, BPH, CVA, GERD, COPD, CHF who presents to the hospital with shortness of breath and altered mental status. He has been in the hospital many times with similar presentation. He was recently started on oxycodone due to pain as an outpatient. He took this last night and developed shortness of breath and EMS evaluated him and he refused transfer. He then took more oxycodone after they left and he became worse. He was noted to be confused and hypoxic and brought in to the hospital. Of note he was at [facility] over a month ago that had a COVID outbreak. In the ED, workup was done vitals notable for rr in the 20s, sats in the 80s. Labs notable for WBC 9.3, hgb 12.1, plts 185, creatinine 0.91. Procal 0.13, trop negative, BNP 695. Ammonia negative. He was given narcan and first dose had some improvement, but additional doses did not improve his mentation. ABG showed pH 7.26, CO2 72.6. He was placed on BIPAP. Chest xray concerning for possible fluid with trace effusion. CT head with old infarcts. Repeat ABG showed improving CO2, and patient's mentation slightly improved. He was ordered for lasix, steroids, remdesivir, and admitted for further treatment. Patient History Medical History Acquired hypothyroidism (09/16/16) Actinic keratosis Basal cell carcinoma 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) Colon polyps CVA (cerebral vascular accident) Depression (06/29/15) Erectile dysfunction (02/12/16) Essential hypertension (06/29/15) Gout Hemorrhoids Hyperlipemia Insomnia Obstructive sleep apnea Osteoarthritis Primary insomnia (09/16/16) Squamous cell carcinoma Surgical History History of ectropion repair (10/2017) Hx of surgical procedure Family & Social History Family History Family/Other Unknown family medical history Social History: household members none Prior Living Arrangements House Safety & Behavioral: Feels Safe in Current Yes Environment Tobacco & Substance use: Tobacco type cigarettes Smoking Status Former smoker alcohol intake never alcohol intake frequency 0-2 drinks per day Substance Use Type does not use Meds Home Medications and Allergies Home Medications Medication Instructions Recorded Confirmed Type famotidine 20 mg tablet 20 mg PO BID 01/01/21 11/02/21 History glucometer and test strips #1 ea 02/08/21 11/02/21 Rx cholecalciferol (vitamin D3) 50 2,000 unit PO DAILY 02/13/21 11/02/21 History mcg (2,000 unit) capsule (Vitamin D3) pantoprazole 40 mg tablet,delayed 40 mg PO BID #180 tab 08/28/21 11/02/21 Rx release allopurinol 100 mg tablet 100 mg PO DAILY #90 tab 10/23/21 11/02/21 Rx atenolol 50 mg tablet 50 mg PO BID #180 tab 10/23/21 11/02/21 Rx duloxetine 20 mg capsule,delayed 20 mg PO DAILY #90 cap 10/23/21 11/02/21 Rx release tamsulosin 0.4 mg capsule 0.4 mg PO BEDTIME #90 cap 10/23/21 11/02/21 Rx Saccharomyces boulardii 250 mg 250 mg PO DAILY 11/02/21 11/02/21 History capsule (Florastor) amlodipine 10 mg tablet 10 mg PO DAILY 11/02/21 11/02/21 History melatonin 5 mg tablet 5 mg PO BEDTIME 11/02/21 11/02/21 History melatonin 3 mg tablet 6 mg PO BEDTIME #30 tab 11/07/21 Rx Allergies Allergy/AdvReac Type Severity Reaction Status Date / Time No Known Drug Allergies Allergy Verified 12/24/21 09:55 Review of Systems Review of Systems Narrative: 14 systems reviewed and negative aside from what is noted in HPI Exam Vital Signs (past 8 hours): - 12/24/21 13:30 12/24/21 14:00 12/24/21 14:17 Temperature Pulse Rate 74 69 Respiratory Rate 26 H 27 H Blood Pressure 127/61 127/61 Pulse Oximetry 92 91 12/24/21 14:19 12/24/21 14:30 12/24/21 15:00 Temperature Pulse Rate 70 72 Respiratory Rate 25 H 22 Blood Pressure 130/61 Pulse Oximetry 93 93 93 12/24/21 15:33 12/24/21 15:46 12/24/21 16:00 Temperature 97.9 F Pulse Rate 73 70 72 Respiratory Rate 17 Blood Pressure 152/70 H 152/70 H Pulse Oximetry 94 92 93 12/24/21 16:03 12/24/21 16:34 12/24/21 17:00 Temperature Pulse Rate 68 82 75 Respiratory Rate 43 H 26 H Blood Pressure Pulse Oximetry 95 72 L 95 12/24/21 17:16 12/24/21 17:30 12/24/21 18:00 Temperature 98.0 F Pulse Rate 71 73 66 Respiratory Rate 21 19 20 Blood Pressure 117/55 L 113/59 L Pulse Oximetry 94 95 95 12/24/21 18:30 12/24/21 19:00 12/24/21 20:00 Temperature 98.7 F Pulse Rate 56 L 57 L 62 Respiratory Rate 19 20 16 Blood Pressure 117/56 L 121/58 L Pulse Oximetry 94 95 97 12/24/21 20:57 Temperature 98.3 F Pulse Rate 56 L Respiratory Rate 22 Blood Pressure 121/58 L Pulse Oximetry 99 Fraction of Inspired Oxygen 28 Oxygen Delivery Method BiPAP Oxygen Flow Rate 0 Narrative Exam Narrative: GEN: moderate respiratory distress, confused HEENT: moist mucous membranes, PERRL NECK: trachea midline, no JVD CV: regular rate and rhythm, no murmurs PULM: poor air movement bilaterally, crackles ABD: soft, nontender, nondistended, no organomegaly, normal bowel sounds EXT: warm and well perfused with trace edmea NEURO: confused, oriented x0, moving all extremities Objective Labs Result Diagrams: 12/24/21 09:35 12/24/21 09:35 Labs: Laboratory Results - last 24 hr 12/24/21 12/24/21 12/24/21 09:29 09:35 09:35 WBC 9.3 RBC 4.30 L Hgb 12.1 L Hct 36.5 L MCV 85.0 MCH 28.1 MCHC 33.1 RDW 21.5 H Plt Count 185 Neut % (Auto) 80.7 H Lymph % (Auto) 8.7 L [place] % (Auto) 9.8 Eos % (Auto) 0.3 L Baso % (Auto) 0.5 Neut # (Auto) 7500 H Lymph # (Auto) 800 L [place] # (Auto) 900 Eos # (Auto) 0 Baso # (Auto) 0 RBC Morphology Not Reportable Anisocytosis 1+ H PT 10.9 INR 1.0 APTT 34 D-Dimer ABG pH ABG pCO2 ABG pO2 ABG HCO3 ABG Total CO2 ABG O2 Saturation ABG Base Excess FiO2 Sodium Potassium Chloride Carbon Dioxide BUN Creatinine Estimated GFR BUN/Creatinine Ratio Glucose Lactate Calcium Total Bilirubin AST ALT Alkaline Phosphatase Ammonia Total Creatine Kinase CK-MB (CK-2) CK-MB (CK-2) Rel Index Troponin I NT-Pro-B Natriuret Pep Total Protein Albumin Globulin Albumin/Globulin Ratio Lipase Procalcitonin Salicylates Acetaminophen Ethyl Alcohol SARS-CoV-2 (PCR) Positive H 12/24/21 12/24/21 12/24/21 09:35 09:35 09:35 WBC RBC Hgb Hct MCV MCH MCHC RDW Plt Count Neut % (Auto) Lymph % (Auto) [place] % (Auto) Eos % (Auto) Baso % (Auto) Neut # (Auto) Lymph # (Auto) [place] # (Auto) Eos # (Auto) Baso # (Auto) RBC Morphology Anisocytosis PT INR APTT D-Dimer ABG pH ABG pCO2 ABG pO2 ABG HCO3 ABG Total CO2 ABG O2 Saturation ABG Base Excess FiO2 Sodium 138 Potassium 4.8 Chloride 100 Carbon Dioxide 33 H BUN 15 Creatinine 0.91 Estimated GFR > 60 BUN/Creatinine Ratio 16.5 Glucose 113 H Lactate 1.3 Calcium 8.6 Total Bilirubin 0.3 AST 27 ALT 11 Alkaline Phosphatase 87 Ammonia < 9 L Total Creatine Kinase 29 L CK-MB (CK-2) TNP CK-MB (CK-2) Rel Index TNP Troponin I < 0.012 NT-Pro-B Natriuret Pep 695 H Total Protein 7.6 Albumin 3.9 Globulin 3.7 Albumin/Globulin Ratio 1.1 Lipase 373 H Procalcitonin Salicylates < 1.0 Acetaminophen < 10 Ethyl Alcohol < 10 SARS-CoV-2 (PCR) 12/24/21 12/24/21 12/24/21 09:35 09:35 09:53 WBC RBC Hgb Hct MCV MCH MCHC RDW Plt Count Neut % (Auto) Lymph % (Auto) [place] % (Auto) Eos % (Auto) Baso % (Auto) Neut # (Auto) Lymph # (Auto) [place] # (Auto) Eos # (Auto) Baso # (Auto) RBC Morphology Anisocytosis PT INR APTT D-Dimer 550 H ABG pH 7.26 L* ABG pCO2 72.6 H* ABG pO2 198 H ABG HCO3 33 H ABG Total CO2 35 H ABG O2 Saturation 99 ABG Base Excess 6.0 H FiO2 100 Sodium Potassium Chloride Carbon Dioxide BUN Creatinine Estimated GFR BUN/Creatinine Ratio Glucose Lactate Calcium Total Bilirubin AST ALT Alkaline Phosphatase Ammonia Total Creatine Kinase CK-MB (CK-2) CK-MB (CK-2) Rel Index Troponin I NT-Pro-B Natriuret Pep Total Protein Albumin Globulin Albumin/Globulin Ratio Lipase Procalcitonin 0.13 Salicylates Acetaminophen Ethyl Alcohol SARS-CoV-2 (PCR) 12/24/21 11:48 WBC RBC Hgb Hct MCV MCH MCHC RDW Plt Count Neut % (Auto) Lymph % (Auto) [place] % (Auto) Eos % (Auto) Baso % (Auto) Neut # (Auto) Lymph # (Auto) [place] # (Auto) Eos # (Auto) Baso # (Auto) RBC Morphology Anisocytosis PT INR APTT D-Dimer ABG pH 7.36 ABG pCO2 54.6 H ABG pO2 48 L* ABG HCO3 31 H ABG Total CO2 32 H ABG O2 Saturation 81 L* ABG Base Excess 5.0 H FiO2 21 Sodium Potassium Chloride Carbon Dioxide BUN Creatinine Estimated GFR BUN/Creatinine Ratio Glucose Lactate Calcium Total Bilirubin AST ALT Alkaline Phosphatase Ammonia Total Creatine Kinase CK-MB (CK-2) CK-MB (CK-2) Rel Index Troponin I NT-Pro-B Natriuret Pep Total Protein Albumin Globulin Albumin/Globulin Ratio Lipase Procalcitonin Salicylates Acetaminophen Ethyl Alcohol SARS-CoV-2 (PCR) Assessment & Plan Assessment & Plan narrative: Mr. George is an 86M PMH COPD, CHF, dementia who presents with acute respiratory failure. 1. Acute hypoxemic and hypercarbic respiratory failure from COVID pneumonia and COPD exacerbation, possible CHF exacerbation -COVID positive, may be shedding from past exposure -continue steroids, remdesivir for now for COVID -patient did require bipap for CO2 narcosis -goal O2 is greater than 88% -no antibiotics for now -nebs and steroids for COPD -continue gentle diuresis for CHF exacerbation -careful with opiates 2. Acute encephalopathy due to hypercarbic respiratory failure -treat infection as above -BIPAP as necessary for hypercarbia 3. Depression -continue duloxetine 4. GERD -continue protonix 5. Hypertension -hold atenolol 6. Dementia -chronic 7. BPH -hold flomax for now, possibly restart tomorrow CODE: Full Proxy: Agnes Lagunas I have utilized all available resources to reconcile the patient's home medications Time Spent With Patient Critical Care time: I spent a total of [] minutes of critical care time on this patient's care today; this time is exclusive of procedural time. Quality VTE Deep Vein Thrombosis/Pulmonary Embolism Present on Admission: No
--- NOTE | 2021-12-24 21:24 | PC.NURSE ---
2100-Pt's BG is 141. Reported the number to RN:Hudson
[2021-12-24] MEDS: dexmedeTOMIDine in 0.9 % NaCL 400 MCG/100 ML PLAST..BAG 11.45 MCG IV (21:52)
[2021-12-24] MEDS: LORazepam 2 MG/ML INJ 1 MG IV (22:25)
[2021-12-25] VITALS (59 sets, daily range): BP systolic 120–188; BP diastolic 58–129; PULSE 53–80; RESP 10–52; TEMP 36.4–36.8; O2SAT 91–100
[2021-12-25] MEDS: dexmedeTOMIDine in 0.9 % NaCL 400 MCG/100 ML PLAST..BAG 28.625 MCG IV ×3 (01:04→23:25)
[2021-12-25 05:05] LABS: Add Manual Diff / Slide Review NO; Basophils Absolute Auto 0 /uL (0-100); Basophils Percent Auto 0.3 % (0-2); Eosinophils Absolute Auto 0 /uL (0-450); Hematocrit 37.1 % (41-53); Hemoglobin 12.3 g/dL (13.5-17.5); Lymphocytes Absolute Auto 700 /uL (1100-4500); Mean Corpuscular HGB Conc 33.1 % (30-36); Mean Corpuscular Hemoglobin 27.8 PG (26-34); Mean Corpuscular Volume 84.1 fL (80-100); Monocytes Absolute Auto 500 /uL (0-900); Neutrophils Absolute Auto 6900 /uL (1500-7000); Neutrophils Percent Auto 84.7 % (50-75); Platelet Count 167 X10^3/uL (150-400); Red Blood Cell Count 4.41 X10^6/uL (4.5-5.9); Red Cell Distribution Width 21.2 % (11.6-14.8); White Blood Cell Count 8.1 X10^3/uL (4.5-11.0)
[2021-12-25 05:06] LABS: BUN Creatinine Ratio 25.6 (6-22); Blood Urea Nitrogen 20 mg/dL (9-20); Calcium 8.6 mg/dL (8.4-10.2); Carbon Dioxide 29 mmol/L (22-32); Chloride 101 mmol/L (98-107); Estimated Glomerular Filt Rate > 60 mL/min (>60); Glucose 145 mg/dL (80-110); HEMOLYSIS < 15 (0-50); Potassium 5.1 mmol/L (3.4-5.1); Sodium 136 mmol/L (137-145)
--- NOTE | 2021-12-25 05:48 | PC.NURSE ---
Shift Note: Patient was lethargic but arousable, follows commands, on BIPAP at 28% FIO2, vital signs are stable and within acceptable limits. Patient denies any pain or discomfort. On precedex drip at 0.4mcg/hr, no signs of agitation or restlessness. At 2225, started to wake up, and attempted to get up from bed, started to cuss and thrown out BIPAP mask, placed nasal cannula instead at 4lpm and tried to pull his IV access, ongoing precedex drip increased up to 1mcg/hr and prn ativan was given, patient started to calm down and relaxed, O2 sat started to drop to 80's, nasal cannula changed to BIPAP at the same previous settings, O2 sat came back up to 90's. Safety precautions maintained at all times. Perineal care was done, brief changed. Repositioned patient every 2hrs. Will continue to monitor.
[2021-12-25] MEDS: LORazepam 2 MG/ML INJ 1 MG IV ×3 (06:15→21:14)
[2021-12-25 07:13] LABS: Anisocytosis 2+
[2021-12-25] MEDS: dexmedeTOMIDine in 0.9 % NaCL 400 MCG/100 ML PLAST..BAG 17.175 MCG IV ×2 (08:03→13:12)
[2021-12-25] MEDS: DEXAMETHASONE 10 MG/ML VIAL 6 MG IV (08:08)
[2021-12-25] MEDS: NYSTATIN CREAM 30 GM 1 APPLIC TOP ×2 (08:09→20:37)
[2021-12-25] MEDS: FUROSEMIDE 40 MG/4 ML VIAL IV (08:09)
[2021-12-25] MEDS: ENOXAPARIN 40 MG/0.4 ML SYRINGE SUBCUT ×2 (08:09→20:37)
[2021-12-25] MEDS: REMDESIVIR 100 MG in SODIUM CHLORIDE 0.9% 230 ML 250 ML IV (08:09)
--- NOTE | 2021-12-25 09:54 | P.TELICUPN_ITS ---
Subjective Subjective If camera was activated, add TeleICU A-V statement: camera activated. pt seen with bedside nurse. no acute vents overnight some agitation treated with precedeex/ativan Current Medications Current Medications Medications: Home Medications famotidine 20 mg tablet 20 mg PO BID 01/01/21 [History Confirmed 11/02/21] glucometer and test strips #1 ea 02/08/21 [Rx Confirmed 11/02/21] cholecalciferol (vitamin D3) 50 mcg (2,000 unit) capsule (Vitamin D3) 2,000 unit PO DAILY 02/13/21 [History Confirmed 11/02/21] pantoprazole 40 mg tablet,delayed release 40 mg PO BID #180 tab 08/28/21 [Rx Confirmed 11/02/21] allopurinol 100 mg tablet 100 mg PO DAILY #90 tab 10/23/21 [Rx Confirmed 11/02/21] atenolol 50 mg tablet 50 mg PO BID #180 tab 10/23/21 [Rx Confirmed 11/02/21] duloxetine 20 mg capsule,delayed release 20 mg PO DAILY #90 cap 10/23/21 [Rx Confirmed 11/02/21] tamsulosin 0.4 mg capsule 0.4 mg PO BEDTIME #90 cap 10/23/21 [Rx Confirmed 11/02/21] Saccharomyces boulardii 250 mg capsule (Florastor) 250 mg PO DAILY 11/02/21 [History Confirmed 11/02/21] amlodipine 10 mg tablet 10 mg PO DAILY 11/02/21 [History Confirmed 11/02/21] melatonin 5 mg tablet 5 mg PO BEDTIME 11/02/21 [History Confirmed 11/02/21] melatonin 3 mg tablet 6 mg PO BEDTIME #30 tab 11/07/21 [Rx] Visit Medications (administered) Generic Name Dose Route Start Last Admin Trade Name Freq PRN Reason Stop Dose Admin Albuterol/Ipratropium 3 ml 12/24/21 15:00 12/25/21 08:23 Albuterol/Ipratropium 3 Ml Ampul INH Not Given [id number] BHAVIN Dexamethasone 6 mg 12/25/21 09:00 12/25/21 08:08 Dexamethasone 10 Mg/Ml Vial IV 6 mg DAILY BHAVIN Administration Furosemide 40 mg 12/25/21 09:00 12/25/21 08:09 Furosemide 40 Mg/4 Ml Vial IV 40 mg DAILY BHAVIN Administration Haloperidol 2 mg 12/24/21 15:40 12/24/21 15:51 Haloperidol 5 Mg/Ml Vial IV 2 mg Q4HR PRN Administration Agitation Remdesivir 100 mg/ Sodium 250 mls @ 250 mls/hr 12/25/21 09:00 12/25/21 08:09 Chloride IV 01/02/22 09:59 250 mls/hr DAILY BHAVIN Administration dexmedeTOMIDine in 0.9 % NaCL 400 mcg in 100 mls @ 5.725 mls/hr 12/24/21 16:30 12/25/21 08:03 Precedex IV 0.6 mcg/kg/hr TITRATE BHAVIN 17.175 mls/hr Administration Protocol 0.2 MCG/KG/HR Lorazepam 1 mg 12/24/21 15:56 12/25/21 06:15 Lorazepam 2 Mg/Ml Inj IV 1 mg Q4HR PRN Administration Agitation Nystatin 1 applic 12/24/21 13:30 12/25/21 08:09 Nystatin Cream 30 Gm TOP 1 applic BID BHAVIN Administration Objective Labs Result Diagrams: 12/25/21 04:40 12/25/21 04:40 Labs: Laboratory Results - last 24 hr 12/24/21 12/24/21 12/24/21 09:29 09:35 09:35 WBC 9.3 RBC 4.30 L Hgb 12.1 L Hct 36.5 L MCV 85.0 MCH 28.1 MCHC 33.1 RDW 21.5 H Plt Count 185 Neut % (Auto) 80.7 H Lymph % (Auto) 8.7 L [place] % (Auto) 9.8 Eos % (Auto) 0.3 L Baso % (Auto) 0.5 Neut # (Auto) 7500 H Lymph # (Auto) 800 L [place] # (Auto) 900 Eos # (Auto) 0 Baso # (Auto) 0 RBC Morphology Not Reportable Anisocytosis 1+ H PT 10.9 INR 1.0 APTT 34 D-Dimer ABG pH ABG pCO2 ABG pO2 ABG HCO3 ABG Total CO2 ABG O2 Saturation ABG Base Excess FiO2 Sodium Potassium Chloride Carbon Dioxide BUN Creatinine Estimated GFR BUN/Creatinine Ratio Glucose Lactate Calcium Total Bilirubin AST ALT Alkaline Phosphatase Ammonia Total Creatine Kinase CK-MB (CK-2) CK-MB (CK-2) Rel Index Troponin I NT-Pro-B Natriuret Pep Total Protein Albumin Globulin Albumin/Globulin Ratio Lipase Procalcitonin Salicylates Acetaminophen Ethyl Alcohol SARS-CoV-2 (PCR) Positive H 12/24/21 12/24/21 12/24/21 09:35 09:35 09:35 WBC RBC Hgb Hct MCV MCH MCHC RDW Plt Count Neut % (Auto) Lymph % (Auto) [place] % (Auto) Eos % (Auto) Baso % (Auto) Neut # (Auto) Lymph # (Auto) [place] # (Auto) Eos # (Auto) Baso # (Auto) RBC Morphology Anisocytosis PT INR APTT D-Dimer ABG pH ABG pCO2 ABG pO2 ABG HCO3 ABG Total CO2 ABG O2 Saturation ABG Base Excess FiO2 Sodium 138 Potassium 4.8 Chloride 100 Carbon Dioxide 33 H BUN 15 Creatinine 0.91 Estimated GFR > 60 BUN/Creatinine Ratio 16.5 Glucose 113 H Lactate 1.3 Calcium 8.6 Total Bilirubin 0.3 AST 27 ALT 11 Alkaline Phosphatase 87 Ammonia < 9 L Total Creatine Kinase 29 L CK-MB (CK-2) TNP CK-MB (CK-2) Rel Index TNP Troponin I < 0.012 NT-Pro-B Natriuret Pep 695 H Total Protein 7.6 Albumin 3.9 Globulin 3.7 Albumin/Globulin Ratio 1.1 Lipase 373 H Procalcitonin Salicylates < 1.0 Acetaminophen < 10 Ethyl Alcohol < 10 SARS-CoV-2 (PCR) 12/24/21 12/24/21 12/24/21 09:35 09:35 09:53 WBC RBC Hgb Hct MCV MCH MCHC RDW Plt Count Neut % (Auto) Lymph % (Auto) [place] % (Auto) Eos % (Auto) Baso % (Auto) Neut # (Auto) Lymph # (Auto) [place] # (Auto) Eos # (Auto) Baso # (Auto) RBC Morphology Anisocytosis PT INR APTT D-Dimer 550 H ABG pH 7.26 L* ABG pCO2 72.6 H* ABG pO2 198 H ABG HCO3 33 H ABG Total CO2 35 H ABG O2 Saturation 99 ABG Base Excess 6.0 H FiO2 100 Sodium Potassium Chloride Carbon Dioxide BUN Creatinine Estimated GFR BUN/Creatinine Ratio Glucose Lactate Calcium Total Bilirubin AST ALT Alkaline Phosphatase Ammonia Total Creatine Kinase CK-MB (CK-2) CK-MB (CK-2) Rel Index Troponin I NT-Pro-B Natriuret Pep Total Protein Albumin Globulin Albumin/Globulin Ratio Lipase Procalcitonin 0.13 Salicylates Acetaminophen Ethyl Alcohol SARS-CoV-2 (PCR) 12/24/21 12/25/21 12/25/21 11:48 04:40 04:40 WBC 8.1 RBC 4.41 L Hgb 12.3 L Hct 37.1 L MCV 84.1 MCH 27.8 MCHC 33.1 RDW 21.2 H Plt Count 167 Neut % (Auto) 84.7 H Lymph % (Auto) 9.0 L [place] % (Auto) 6.0 Eos % (Auto) 0.0 L Baso % (Auto) 0.3 Neut # (Auto) 6900 Lymph # (Auto) 700 L [place] # (Auto) 500 Eos # (Auto) 0 Baso # (Auto) 0 RBC Morphology Not Reportable Anisocytosis 2+ H PT INR APTT D-Dimer ABG pH 7.36 ABG pCO2 54.6 H ABG pO2 48 L* ABG HCO3 31 H ABG Total CO2 32 H ABG O2 Saturation 81 L* ABG Base Excess 5.0 H FiO2 21 Sodium 136 L Potassium 5.1 Chloride 101 Carbon Dioxide 29 BUN 20 Creatinine 0.78 Estimated GFR > 60 BUN/Creatinine Ratio 25.6 H Glucose 145 H Lactate Calcium 8.6 Total Bilirubin AST ALT Alkaline Phosphatase Ammonia Total Creatine Kinase CK-MB (CK-2) CK-MB (CK-2) Rel Index Troponin I NT-Pro-B Natriuret Pep Total Protein Albumin Globulin Albumin/Globulin Ratio Lipase Procalcitonin Salicylates Acetaminophen Ethyl Alcohol SARS-CoV-2 (PCR) Exam Vital Signs (past 8 hours): - 12/25/21 02:00 12/25/21 02:30 12/25/21 03:00 Temperature 98.2 F Pulse Rate 56 L 57 L 60 Respiratory Rate 22 24 23 Blood Pressure 164/76 H 162/75 H 166/78 H Pulse Oximetry 96 94 94 12/25/21 03:30 12/25/21 04:00 12/25/21 04:30 Temperature Pulse Rate 62 57 L 61 Respiratory Rate 22 24 24 Blood Pressure 171/78 H 174/79 H Pulse Oximetry 96 95 95 12/25/21 05:00 12/25/21 05:30 12/25/21 05:37 Temperature Pulse Rate 61 57 L 59 L Respiratory Rate 22 23 23 Blood Pressure 169/77 H 188/79 H 163/79 H Pulse Oximetry 95 94 94 12/25/21 06:00 12/25/21 06:30 12/25/21 06:35 Temperature Pulse Rate 56 L 58 L 64 Respiratory Rate 21 23 24 Blood Pressure 176/77 H 171/80 H Pulse Oximetry 95 91 91 12/25/21 07:00 12/25/21 08:26 Temperature Pulse Rate 58 L Respiratory Rate 24 Blood Pressure 162/77 H Pulse Oximetry 94 99 Fraction of Inspired Oxygen 28 Oxygen Delivery Method BiPAP Oxygen Flow Rate 0 Quality TeleICU VTE Deep Vein Thrombosis/Pulmonary Embolism Present on Admission: No Assessment & Plan Assessment & Plan narrative: pateint seen with bedside nurse chart/labs/imaging reviewed 86 year old male with admitted to ICU for covid PNA afebrile, HD stable now on NC appears comfortable on precedex suggest -avoid opiods/benzos in hypercaneic failure -on NC wean as tolerated -start seroqeul 25mg 12 for agitationif qtc is less than 500 -wean off of precedex -nebs/steroids -remdesevir/baricitinib -glucose 104-180s -monitor ints/outs -replace lytes pn -gi/dvt ppx -if off drip can downgrade -please call eICU if condition changes Time Spent With Patient Critical Care time: I spent a total of [] minutes of critical care time on this patient's care today; this time is exclusive of procedural time.
--- NOTE | 2021-12-25 10:40 | PC.NURSE ---
Addendum entered by Maeve Stoddard R.N. 12/25/21 15:09: 1500: Pt given first dose of seroquel with no adverse s/s noted. Precedex infusing at 0.5 mcg/kg/hr. Pt cooperative with nasir care and linen change after episode of urinary incontinence. O2 at 2L/NC, resp even and unlabored, breath sounds clear and diminished. Addendum entered by Maeve Stoddard R.N. 12/25/21 10:59: 1045: MKu=434 ms Original Note: 1000: Pt continues with aggressive behavior/threats of violence/removal of critical lines and monitoring equipment whenever lowering precedex is attempted and staff provides care (. Bipap removed at pt request, saturating low-mid 90s on 2L NC. Breath sounds clear/diminished throughout. Precedex currently infusing at 0.6 mcg/kg/hr. Pt resting in bed with eyes closed.
[2021-12-25] MEDS: ALBUTEROL/IPRATROPIUM 3 ML AMPUL INH ×3 (10:42→21:41)
[2021-12-25] MEDS: QUETIAPINE 25 MG TABLET PO ×2 (13:49→20:37)
--- NOTE | 2021-12-25 15:06 | CM.DPNOTE ---
Faxed referral per Sharon to [facility] and received conf. Saranya Duong CM Assist.
--- NOTE | 2021-12-25 16:19 | CM.DANOTE ---
DCP/Brief Assessment: Reviewed chart. Patient is a 86yr old male admitted to [facility] with SOB. PCP is Dr. Roman. Primary payor is 1)[facility] 2) Self pay. Patient currently with COVID in room# 230. [employer] spoke with RN whom reports that patient currently sleeping on 2 liters 02. Patient's current behaviors have been of resistance. RN spoke with daughter this AM and she reports that patient has difficult time in hospital. Prior to admit patient on service with [facility] RN reports that they did call to verify patient's status and confirmed that they could accept/resume services at time of d/c. CM team will need to verify when d/c is closer. At this time d/c date unknown. Patient's daughter/Nessa is contact at [phone]. P: CM team following for d/c planning needs. Will need to discuss d/c plan with patient when medically appropriate to do so. In addition, daughter involved and should be updated. TATYANA Discharge Planning/Care Management CM Discharge Assessment Start: 12/25/21 16:16 Freq: Status: Active Protocol: Document 12/25/21 16:16 TATYANA (Rec: 12/25/21 16:19 [facility] [id number]) Discharge Planning Assessment Assigned Acid Cutter LINDA Pendleton Contact Information Nessa Carbone (daughter) ph# [phone] Advance Directives? Yes Advance Directives on File Yes History Provided By Medical Record Prior Living Arrangements House Household Members none Independent with ADL's Unknown at this time Is patient alert and oriented? No Caregiver for Another No Patient/Family Preference Home with Home Health Comment Patient currently on service with [facility]. Discharge Plan Home with Home Health Transportation Arrangement Pending Additional Comment Patient currently with COVID. Per nursing patient resistent to care. Review Status In Process Next Review Type Continued Stay Review
[2021-12-25] MEDS: dexmedeTOMIDine in 0.9 % NaCL 400 MCG/100 ML PLAST..BAG 14.313 MCG IV (17:43)
--- NOTE | 2021-12-25 17:53 | P.PN_ITS ---
Subjective Subjective Date Patient Seen: 12/25/21 Interval history: Patient unable to participate in subjective exam due to current sedating medications. Exam Vital Signs (past 8 hours): - 12/25/21 10:00 12/25/21 10:30 12/25/21 10:43 Temperature Pulse Rate 60 60 Respiratory Rate 20 25 H Blood Pressure 169/77 H Pulse Oximetry 97 93 96 12/25/21 11:00 12/25/21 11:07 12/25/21 12:00 Temperature Pulse Rate 70 62 55 L Respiratory Rate 25 H 24 22 Blood Pressure 159/129 H 166/79 H 172/77 H Pulse Oximetry 95 96 99 12/25/21 12:30 12/25/21 13:00 12/25/21 13:01 Temperature 97.9 F 97.9 F Pulse Rate 58 L 62 62 Respiratory Rate 22 23 23 Blood Pressure 152/72 H Pulse Oximetry 99 99 99 12/25/21 13:30 12/25/21 14:00 12/25/21 14:48 Temperature Pulse Rate 63 62 Respiratory Rate 27 H 25 H Blood Pressure 151/72 H Pulse Oximetry 98 97 97 12/25/21 15:00 12/25/21 15:30 12/25/21 16:00 Temperature Pulse Rate 69 74 66 Respiratory Rate 21 24 20 Blood Pressure 121/58 L 127/61 Pulse Oximetry 97 95 95 12/25/21 16:30 12/25/21 17:00 Temperature 97.6 F Pulse Rate 61 Respiratory Rate 21 Blood Pressure 127/61 Pulse Oximetry 99 Fraction of Inspired Oxygen 28 Oxygen Delivery Method Nasal Cannula Oxygen Flow Rate 1 Narrative Exam Narrative: GEN: comfortable appearing, no distress, quite somnolent on precedex and seroquel. HEENT: moist mucous membranes, PERRL NECK: trachea midline, no JVD CV: regular rate and rhythm, no murmurs PULM: poor air movement bilaterally, crackles bilaterally. ABD: soft, nontender, nondistended, no organomegaly, normal bowel sounds EXT: warm and well perfused with trace edmea NEURO: unable to assess today. Objective Labs Result Diagrams: 12/25/21 04:40 12/25/21 04:40 Labs: Laboratory Results - last 24 hr 12/25/21 12/25/21 04:40 04:40 WBC 8.1 RBC 4.41 L Hgb 12.3 L Hct 37.1 L MCV 84.1 MCH 27.8 MCHC 33.1 RDW 21.2 H Plt Count 167 Neut % (Auto) 84.7 H Lymph % (Auto) 9.0 L [place] % (Auto) 6.0 Eos % (Auto) 0.0 L Baso % (Auto) 0.3 Neut # (Auto) 6900 Lymph # (Auto) 700 L [place] # (Auto) 500 Eos # (Auto) 0 Baso # (Auto) 0 RBC Morphology Not Reportable Anisocytosis 2+ H Sodium 136 L Potassium 5.1 Chloride 101 Carbon Dioxide 29 BUN 20 Creatinine 0.78 Estimated GFR > 60 BUN/Creatinine Ratio 25.6 H Glucose 145 H Calcium 8.6 PFSH Medical History Acquired hypothyroidism (09/16/16) Actinic keratosis Basal cell carcinoma 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) Colon polyps CVA (cerebral vascular accident) Depression (06/29/15) Erectile dysfunction (02/12/16) Essential hypertension (06/29/15) Gout Hemorrhoids Hyperlipemia Insomnia Obstructive sleep apnea Osteoarthritis Primary insomnia (09/16/16) Squamous cell carcinoma Surgical History History of ectropion repair (10/2017) Hx of surgical procedure Family History Family/Other Unknown family medical history Social History household members: none Smoking Status: Former smoker alcohol intake: never Assessment & Plan Assessment & Plan narrative: Mr. George is an 86M PMH COPD, CHF, dementia who presents with acute respiratory failure. On precedex for sedation in setting of acute encephalopathy and remains in the ICU. 1. Acute hypoxemic and hypercarbic respiratory failure from COVID pneumonia and COPD exacerbation, possible CHF exacerbation -COVID positive, may be shedding from past exposure -continue steroids, remdesivir for now for COVID -patient did require bipap for CO2 narcosis, now improved. -goal O2 is greater than 88% -no antibiotics for now -nebs and steroids for COPD -continue gentle diuresis for CHF exacerbation -careful with opiates 2. Acute encephalopathy due to hypercarbic respiratory failure -treat infection as above -BIPAP as necessary for hypercarbia -seroquel started at night, continue to wean from precedex. 3. Depression -continue duloxetine 4. GERD -continue protonix 5. Hypertension -hold atenolol 6. Dementia -chronic 7. BPH -hold flomax for now CODE: Full Proxy: Agnes Lagunas I have utilized all available resources to reconcile the patient's home med ications I spent 30 minutes providing critical care management this patient. This excludes time spent in performing separately billed procedures. Time Spent With Patient Critical Care time: I spent a total of [] minutes of critical care time on this patient's care today; this time is exclusive of procedural time. Quality VTE Deep Vein Thrombosis/Pulmonary Embolism Present on Admission: No
--- NOTE | 2021-12-25 21:32 | PM.ICURNDS ---
- :: This patient was seen via real time interactive two-way audiovisual telecommunication. Note: patient remains delirious still reuquing precedex which seems to helping. on minimal fio2. contieus to receive seroquel.
[2021-12-26] VITALS (40 sets, daily range): BP systolic 105–182; BP diastolic 63–92; PULSE 53–109; RESP 17–35; TEMP 36.2–37.6; O2SAT 84–98; BMI 42.0
[2021-12-26] MEDS: dexmedeTOMIDine in 0.9 % NaCL 400 MCG/100 ML PLAST..BAG 28.625 MCG IV (02:57)
[2021-12-26] MEDS: LORazepam 2 MG/ML INJ 1 MG IV ×3 (03:19→20:06)
[2021-12-26] MEDS: ENALAPRILAT 2.5 MG/ 2 ML VIAL 0.625 MG IV (04:32)
[2021-12-26] MEDS: dexmedeTOMIDine in 0.9 % NaCL 400 MCG/100 ML PLAST..BAG 14.313 MCG IV (05:44)
[2021-12-26 05:48] LABS: Add Manual Diff / Slide Review NO; Basophils Absolute Auto 0 /uL (0-100); Basophils Percent Auto 0.3 % (0-2); Eosinophils Absolute Auto 0 /uL (0-450); Hematocrit 41.3 % (41-53); Hemoglobin 13.6 g/dL (13.5-17.5); Lymphocytes Absolute Auto 700 /uL (1100-4500); Lymphocytes Percent Auto 6.6 % (25-40); Mean Corpuscular HGB Conc 32.9 % (30-36); Mean Corpuscular Hemoglobin 27.7 PG (26-34); Monocytes Absolute Auto 700 /uL (0-900); Monocytes Percent Auto 6.9 % (3-14); Neutrophils Absolute Auto 9100 /uL (1500-7000); Neutrophils Percent Auto 86.2 % (50-75); Platelet Count 158 X10^3/uL (150-400); Red Blood Cell Count 4.92 X10^6/uL (4.5-5.9); Red Cell Distribution Width 20.6 % (11.6-14.8); White Blood Cell Count 10.5 X10^3/uL (4.5-11.0)
[2021-12-26 06:03] LABS: Alanine Aminotransferase 13 IU/L (<50); Albumin 3.5 g/dL (3.5-5.0); Alkaline Phosphatase 71 U/L (38-126); Aspartate Aminotransferase 26 IU/L (17-59); BUN Creatinine Ratio 36.2 (6-22); Bilirubin Total 0.4 mg/dL (0.2-1.3); Blood Urea Nitrogen 25 mg/dL (9-20); Calcium 8.8 mg/dL (8.4-10.2); Carbon Dioxide 32 mmol/L (22-32); Chloride 99 mmol/L (98-107); Estimated Glomerular Filt Rate > 60 mL/min (>60); Globulin 3.5 g/dL (1.7-4.1); Glucose 138 mg/dL (80-110); HEMOLYSIS 22 (0-50); Magnesium 1.9 mg/dL (1.6-2.3); Potassium 4.4 mmol/L (3.4-5.1); Sodium 137 mmol/L (137-145)
--- NOTE | 2021-12-26 06:25 | PC.NURSE ---
Shift Note: Patient was confused, due seroquel was given and titrated down the precedex to 0.3mcg/hr but patient started to wake up and confused, agitated and combative, attempted to get up from bed and pulled his IV. PRN ativan was given, precedex titrated up to 1mcg/hr, patient started to be calm and relaxed but arousable to voice. Patient denies any pain/discomfort. Vital signs are within acceptable limits. O2 support maintained at 1lpm with O2 sat >92% throughout the shift. Safety precautions maintained. Tele-ICU MD Mix was updated on current patient's condition. Precedex was titrated down to 0.5mcg/hr. Will continue to monitor.
[2021-12-26 06:30] LABS: Anisocytosis 1+
[2021-12-26] MEDS: ALBUTEROL/IPRATROPIUM 3 ML AMPUL INH ×2 (07:49→11:15)
--- NOTE | 2021-12-26 08:31 | PC.NURSE ---
Addendum entered by Tho Main R.N. 12/26/21 18:56: Pt has settled down since receiving last dose of seroquel. He is sitting up in the chair resting with his eyes closed. He occasionally calls out but has not attempted to get up in about an hour which is an improvement for him. Chair alarm on. Call light in easy reach. Addendum entered by Tho Main R.N. 12/26/21 17:38: Pt has been awake most of this shift with only brief moments of calm post med administrations. Rec'd orders from hospitalist for increased dose/frequency of seroquel. Pt continues to get OOB without assist despite reorientation, redirection, use of bed alarm/chair alarm. Non skid socks on and curtains open for direct visualization. Addendum entered by Tho Main R.N. 12/26/21 15:10: Pt continues with attempts to get OOB unassisted despite PRN po ativan, precidex infusion. Hospitalist at bedside. Assessed pt together. Reviewed medications, plan of care. Hospitalist gives VORB to discontinue precedex and states will obtain psych consult. Addendum entered by Tho Main R.N. 12/26/21 14:13: Attempting to minimize use of benzos per headwaiter/headwaitress recs. Administered haldol per order with brief effect. Attempting to wean precedex, maintain wakefulness, and reorient/redirect pt with no success. Called to hospitalist and reported continued agitation (attempting to get OOB unassisted, yelling curse words, etc) and requested direction regarding management of agitation. Hospitalist states he will write orders. Original Note: During change of shift, pt removed IV and monitoring equipment. Entered room and noted pt to be agitated. This is stupid. I'm leaving this organization. Pt is oriented to self and daughter. Attempted reorientation with no success. Pt is briefly able to be redirected and allowed this RN to initiate IV access. Restarted precedex infusion with little improvement in agitation with upward titration. Administered PRN lorazepam after which time pt was noted to be resting comfortably with eyes closed. Reapplied monitoring equipment. Placed call light in reach and set bed alarm for safety. Curtains open for direct visualization.
[2021-12-26] MEDS: FUROSEMIDE 40 MG/4 ML VIAL IV (09:16)
[2021-12-26] MEDS: DEXAMETHASONE 10 MG/ML VIAL 6 MG IV (09:16)
[2021-12-26] MEDS: ENOXAPARIN 40 MG/0.4 ML SYRINGE SUBCUT ×2 (09:16→20:05)
[2021-12-26] MEDS: dexmedeTOMIDine in 0.9 % NaCL 400 MCG/100 ML PLAST..BAG 20.038 MCG IV (09:17)
--- NOTE | 2021-12-26 09:29 | PM.PN.EICU ---
Subjective Subjective Interval history: Remains on precedex 0.5 mcg. Agitated and intermittently following simple commands. Received a few pushes of ativan but no haldol was given overnight. Current Medications Current Medications Medications: Home Medications famotidine 20 mg tablet 20 mg PO BID 01/01/21 [History Confirmed 11/02/21] glucometer and test strips #1 ea 02/08/21 [Rx Confirmed 11/02/21] cholecalciferol (vitamin D3) 50 mcg (2,000 unit) capsule (Vitamin D3) 2,000 unit PO DAILY 02/13/21 [History Confirmed 11/02/21] pantoprazole 40 mg tablet,delayed release 40 mg PO BID #180 tab 08/28/21 [Rx Confirmed 11/02/21] allopurinol 100 mg tablet 100 mg PO DAILY #90 tab 10/23/21 [Rx Confirmed 11/02/21] atenolol 50 mg tablet 50 mg PO BID #180 tab 10/23/21 [Rx Confirmed 11/02/21] duloxetine 20 mg capsule,delayed release 20 mg PO DAILY #90 cap 10/23/21 [Rx Confirmed 11/02/21] tamsulosin 0.4 mg capsule 0.4 mg PO BEDTIME #90 cap 10/23/21 [Rx Confirmed 11/02/21] Saccharomyces boulardii 250 mg capsule (Florastor) 250 mg PO DAILY 11/02/21 [History Confirmed 11/02/21] amlodipine 10 mg tablet 10 mg PO DAILY 11/02/21 [History Confirmed 11/02/21] melatonin 5 mg tablet 5 mg PO BEDTIME 11/02/21 [History Confirmed 11/02/21] melatonin 3 mg tablet 6 mg PO BEDTIME #30 tab 11/07/21 [Rx] Visit Medications (administered) Generic Name Dose Route Start Last Admin Trade Name Freq PRN Reason Stop Dose Admin Albuterol/Ipratropium 3 ml 12/24/21 15:00 12/26/21 07:49 Albuterol/Ipratropium 3 Ml Ampul INH 3 ml [id number] BHAVIN Administration Dexamethasone 6 mg 12/25/21 09:00 12/26/21 09:16 Dexamethasone 10 Mg/Ml Vial IV 6 mg DAILY BHAVIN Administration Enalaprilat 0.625 mg 12/26/21 03:45 12/26/21 04:32 Enalaprilat 2.5 Mg/ 2 Ml Vial IV 0.625 mg Q6H BHAVIN Administration Enoxaparin Sodium 40 mg 12/25/21 21:00 12/26/21 09:16 Enoxaparin 40 Mg/0.4 Ml Syringe SUBCUT 40 mg BID BHAVIN Administration Furosemide 40 mg 12/25/21 09:00 12/26/21 09:16 Furosemide 40 Mg/4 Ml Vial IV 40 mg DAILY BHAVIN Administration Haloperidol 2 mg 12/24/21 15:40 12/24/21 15:51 Haloperidol 5 Mg/Ml Vial IV 2 mg Q4HR PRN Administration Agitation Remdesivir 100 mg/ Sodium 250 mls @ 250 mls/hr 12/25/21 09:00 12/25/21 08:09 Chloride IV 01/02/22 09:59 250 mls/hr DAILY BHAVIN Administration dexmedeTOMIDine in 0.9 % NaCL 400 mcg in 100 mls @ 5.725 mls/hr 12/24/21 16:30 12/26/21 09:17 Precedex IV 0.7 mcg/kg/hr TITRATE BHAVIN 20.038 mls/hr Administration Protocol 0.2 MCG/KG/HR Lorazepam 1 mg 12/24/21 15:56 12/26/21 08:16 Lorazepam 2 Mg/Ml Inj IV 1 mg Q4HR PRN Administration Agitation Nystatin 1 applic 12/24/21 13:30 12/25/21 20:37 Nystatin Cream 30 Gm TOP 1 applic BID BHAVIN Administration Quetiapine Fumarate 25 mg 12/25/21 13:45 12/25/21 20:37 Quetiapine 25 Mg Tablet PO 25 mg BID BHAVIN Administration Objective Labs Result Diagrams: 12/26/21 05:35 12/26/21 05:35 Labs: Laboratory Results - last 24 hr 12/25/21 12/26/21 12/26/21 18:30 05:35 05:35 WBC 10.5 RBC 4.92 Hgb 13.6 Hct 41.3 MCV 84.0 MCH 27.7 MCHC 32.9 RDW 20.6 H Plt Count 158 Neut % (Auto) 86.2 H Lymph % (Auto) 6.6 L [place] % (Auto) 6.9 Eos % (Auto) 0.0 L Baso % (Auto) 0.3 Neut # (Auto) 9100 H Lymph # (Auto) 700 L [place] # (Auto) 700 Eos # (Auto) 0 Baso # (Auto) 0 RBC Morphology See below Anisocytosis 1+ H Sodium 137 Potassium 4.4 Chloride 99 Carbon Dioxide 32 BUN 25 H Creatinine 0.69 Estimated GFR > 60 BUN/Creatinine Ratio 36.2 H Glucose 138 H Calcium 8.8 Magnesium 1.9 Total Bilirubin 0.4 AST 26 ALT 13 Alkaline Phosphatase 71 Total Protein 7.0 Albumin 3.5 Globulin 3.5 Albumin/Globulin Ratio 1.0 Nasal Screen MRSA (PCR) Negative for mrsa Exam Vital Signs (past 8 hours): - 12/26/21 01:30 12/26/21 02:00 12/26/21 02:01 Temperature Pulse Rate 62 62 62 Respiratory Rate 21 23 23 Blood Pressure 141/65 H Pulse Oximetry 95 93 94 12/26/21 02:30 12/26/21 03:00 12/26/21 03:01 Temperature 97.2 F L Pulse Rate 64 67 65 Respiratory Rate 24 29 H 27 H Blood Pressure 178/73 H Pulse Oximetry 93 93 94 12/26/21 03:30 12/26/21 04:00 12/26/21 04:01 Temperature Pulse Rate 62 59 L 59 L Respiratory Rate 20 22 24 Blood Pressure 182/79 H 169/76 H Pulse Oximetry 97 95 94 12/26/21 04:30 12/26/21 05:00 12/26/21 05:02 Temperature Pulse Rate 65 79 69 Respiratory Rate 25 H 35 H 31 H Blood Pressure 177/81 H 161/72 H Pulse Oximetry 94 92 92 12/26/21 05:30 12/26/21 06:00 12/26/21 07:00 Temperature Pulse Rate 66 61 61 Respiratory Rate 34 H 24 22 Blood Pressure 172/75 H 182/80 H Pulse Oximetry 94 94 95 12/26/21 07:30 12/26/21 07:50 12/26/21 08:00 Temperature 97.6 F Pulse Rate 64 71 66 Respiratory Rate 26 H 20 Blood Pressure Pulse Oximetry 94 94 94 Fraction of Inspired Oxygen 32 Oxygen Delivery Method Nasal Cannula Oxygen Flow Rate 3 Quality TeleICU VTE Deep Vein Thrombosis/Pulmonary Embolism Present on Admission: No Assessment & Plan Assessment & Plan narrative: NEURO: # Acute encephalopathy -- Secondary to delirium and COVID encephalopathy -- Delirium rx as below -- Avoid BZD -- Early mobility -- Seek PT/OT and OOB as tolerated # Delirium -- Risk factors -> steroids, ICU stay, malfunction sleep wake cycle, and BZD -- Recommend to avoid using BZD -- On precedex to seek RASS goal -1 to 0 -- Cont melatonin -- Avoid daytime sleep -- Remove all unnecessary lines (ie, [place]) --Cont frequent reorientation -- ON seroquel -- Daily EKG to monitor QTc RESP: # Acute hypoxemia respiratory failure -- Secondary to COVID-19 and atelectasis -- Cont diuresis -- COVID rx as below -- Encourage IS -- HOB elevation -- Aspiration precaution -- Goal SpO2 > 88% CVS: # HTN -- On norvasc -- Goal SBP < 140 ID: # COVID PNA -- On decadron therapy -- Cont diuresis -- Strict I/O -- ON contact, airborne, and droplet precautions ENDO: -- Goal BS < 180 D/w RN and patient at bedside. Time Spent With Patient Critical Care time: I spent a total of [] minutes of critical care time on this patient's care today; this time is exclusive of procedural time.
[2021-12-26] MEDS: QUETIAPINE 25 MG TABLET PO (09:47)
[2021-12-26] MEDS: NYSTATIN CREAM 30 GM 1 APPLIC TOP (10:34)
[2021-12-26] MEDS: HALOPERIDOL 5 MG/ML VIAL 2 MG IV ×3 (10:54→22:45)
[2021-12-26] MEDS: LORazepam 1 MG TABLET PO (14:19)
--- NOTE | 2021-12-26 15:40 | PM.PN.1 ---
Subjective Subjective Date Patient Seen: 12/26/21 Interval history: Now off of supplemental oxygen. Remains impulsive and stubborn. He is redirectable but weak and difficult to arise from the bed. He requires signficant help but often times cannot follow directions. Exam Vital Signs (past 8 hours): - 12/26/21 07:50 12/26/21 08:00 12/26/21 08:07 Temperature 97.6 F Pulse Rate 71 66 69 Respiratory Rate 20 Blood Pressure 133/64 Pulse Oximetry 94 94 95 12/26/21 08:30 12/26/21 09:00 12/26/21 09:30 Temperature Pulse Rate 53 L 61 63 Respiratory Rate 20 25 H Blood Pressure Pulse Oximetry 98 96 96 12/26/21 10:00 12/26/21 10:16 12/26/21 10:30 Temperature Pulse Rate 86 68 63 Respiratory Rate 22 Blood Pressure Pulse Oximetry 84 L 90 L 96 12/26/21 11:00 12/26/21 11:21 12/26/21 11:30 Temperature Pulse Rate 70 69 70 Respiratory Rate 22 Blood Pressure Pulse Oximetry 94 97 96 12/26/21 12:00 12/26/21 12:18 12/26/21 12:28 Temperature 97.4 F L Pulse Rate 74 75 Respiratory Rate 22 Blood Pressure 130/92 H Pulse Oximetry 93 93 12/26/21 14:01 Temperature Pulse Rate Respiratory Rate Blood Pressure Pulse Oximetry 95 Fraction of Inspired Oxygen 32 Oxygen Delivery Method Room Air Oxygen Flow Rate 0 Narrative Exam Narrative: GEN: comfortable appearing but irritable (still on precedex), awake, alert but confused. HEENT: moist mucous membranes, PERRL NECK: trachea midline, no JVD CV: regular rate and rhythm, no murmurs PULM: No obvious wheezing, rhonchi, rales, poor effort. ABD: soft, nontender, nondistended, no organomegaly EXT: warm and well perfused with trace edmea NEURO: ambulatory with walker. Needs assistance to get to edge of the bed, but once ambulatory he does well with a walker. No focal deficits. Alert but confused. Poor short term memory. Objective Labs Result Diagrams: 12/26/21 05:35 12/26/21 05:35 Labs: Laboratory Results - last 24 hr 05/03/22 05/04/22 05/04/22 18:30 05:35 05:35 WBC 10.5 RBC 4.92 Hgb 13.6 Hct 41.3 MCV 84.0 MCH 27.7 MCHC 32.9 RDW 20.6 H Plt Count 158 Neut % (Auto) 86.2 H Lymph % (Auto) 6.6 L [place] % (Auto) 6.9 Eos % (Auto) 0.0 L Baso % (Auto) 0.3 Neut # (Auto) 9100 H Lymph # (Auto) 700 L [place] # (Auto) 700 Eos # (Auto) 0 Baso # (Auto) 0 RBC Morphology See below Anisocytosis 1+ H Sodium 137 Potassium 4.4 Chloride 99 Carbon Dioxide 32 BUN 25 H Creatinine 0.69 Estimated GFR > 60 BUN/Creatinine Ratio 36.2 H Glucose 138 H Calcium 8.8 Magnesium 1.9 Total Bilirubin 0.4 AST 26 ALT 13 Alkaline Phosphatase 71 Total Protein 7.0 Albumin 3.5 Globulin 3.5 Albumin/Globulin Ratio 1.0 Nasal Screen MRSA (PCR) Negative for [facility] History Acquired hypothyroidism (09/16/16) Actinic keratosis Basal cell carcinoma 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) Colon polyps CVA (cerebral vascular accident) Depression (06/29/15) Erectile dysfunction (02/12/16) Essential hypertension (06/29/15) Gout Hemorrhoids Hyperlipemia Insomnia Obstructive sleep apnea Osteoarthritis Primary insomnia (09/16/16) Squamous cell carcinoma Surgical History History of ectropion repair (10/2017) Hx of surgical procedure Family History Family/Other Unknown family medical history Social History household members: none Smoking Status: Former smoker alcohol intake: never Assessment & Plan Assessment & Plan narrative: Mr. George is an 86M PMH COPD, CHF, dementia who presents with acute respiratory failure. On precedex for sedation in setting of acute encephalopathy and remains in the ICU. 1. Acute hypoxemic and hypercarbic respiratory failure from COVID pneumonia and COPD exacerbation, possible CHF exacerbation, resolved. -COVID positive, may be shedding from past exposure -continued steroids and remdesevir until off of supplemental oxygen, discontinued today 12/26. -patient did require bipap for CO2 narcosis, now improved and off of supplemental oxygen. -goal O2 is greater than 88% -continue nebs for COPD. Will stop steroids as this may be contributing to his behavior. -continue gentle diuresis for CHF exacerbation -careful with opiates 2. Acute encephalopathy due to hypercarbic respiratory failure -patient remains confused and at time aggressive. He is easily directable but has been on precedex for some time. Also have attempted haldol and ativan, each temporarily controlled behavioral issues. -seroquel started at night, continue to wean from precedex today, hopefully will have off. -will discuss with psychiatry for medication management moving forward, as family is requesting SNF but this will be difficult in setting of behavioral issues. -likely further complicated by steroids and worsening dementia in setting of severe covid. Steroids were discontinued today as patient is no longer on supplemental O2. 3. Depression -continue duloxetine 4. GERD -continue protonix 5. Hypertension -hold atenolol 6. Dementia -chronic 7. BPH -hold flomax for now CODE: Full Proxy: Agnes Tapiajulitoeric I have utilized all available resources to reconcile the patient's home medications Dispo: can go to regular floor if off of precedex. start PT/OT if patient will allow, try for SNF but may need home with home health. I spent 30 minutes providing critical care management this patient.? This excludes time spent in performing separately billed procedures. Time Spent With Patient Critical Care time: I spent a total of [] minutes of critical care time on this patient's care today; this time is exclusive of procedural time. Quality VTE Deep Vein Thrombosis/Pulmonary Embolism Present on Admission: No
[2021-12-26] MEDS: QUETIAPINE 25 MG TABLET 50 MG PO (16:56)
--- NOTE | 2021-12-26 17:32 | CM.DPC ---
DCP/continued: Reviewed chart. Spoke with Dr. Pereyra whom indicates that patient's behaviors are still inappropriate. Dr. Pereyra reports that he will order psychiatric evaluation to assist with agitation. At this time d/c plan remains for patient to d/c home with resumed HH. Plan will need to be reassessed prior to discharge. At this time patient declines any services. Daughter/Nessa is DPOA ph# [phone]. P: Pending. LINDA Pendleton
[2021-12-26] MEDS: ALBUTEROL 2.5 MG/3 ML NEB (ADULT) INH ×2 (19:03→19:04)
[2021-12-26] MEDS: SODIUM CHLORIDE 0.9% FLUSH 10 ML IV (20:06)
[2021-12-26] MEDS: QUETIAPINE 25 MG TABLET 100 MG PO (20:06)
[2021-12-26] MEDS: ACETAMINOPHEN 325 MG TABLET 650 MG PO (20:33)
[2021-12-27] MEDS: LORazepam 2 MG/ML INJ 1 MG IV (00:57)
[2021-12-27] MEDS: HALOPERIDOL 5 MG/ML VIAL 2 MG IV (02:55)
[2021-12-27 03:14] VITALS: BP 143/71; PULSE 103; RESP 18; TEMP 36.9; O2SAT 94
[2021-12-27 05:32] LABS: Alanine Aminotransferase 32 IU/L (<50); Albumin 3.6 g/dL (3.5-5.0); Alkaline Phosphatase 81 U/L (38-126); Aspartate Aminotransferase 68 IU/L (17-59); BUN Creatinine Ratio 38.8 (6-22); Bilirubin Total 0.4 mg/dL (0.2-1.3); Blood Urea Nitrogen 38 mg/dL (9-20); Calcium 8.9 mg/dL (8.4-10.2); Carbon Dioxide 31 mmol/L (22-32); Chloride 96 mmol/L (98-107); Estimated Glomerular Filt Rate > 60 mL/min (>60); Globulin 3.5 g/dL (1.7-4.1); Glucose 104 mg/dL (80-110); HEMOLYSIS < 15 (0-50); Magnesium 1.7 mg/dL (1.6-2.3); Potassium 3.7 mmol/L (3.4-5.1); Sodium 135 mmol/L (137-145); Total Protein 7.1 g/dL (6.3-8.2)
[2021-12-27 05:33] LABS: Add Manual Diff / Slide Review NO; Basophils Absolute Auto 0 /uL (0-100); Basophils Percent Auto 0.3 % (0-2); Eosinophils Absolute Auto 0 /uL (0-450); Hematocrit 38.3 % (41-53); Hemoglobin 12.9 g/dL (13.5-17.5); Lymphocytes Absolute Auto 800 /uL (1100-4500); Lymphocytes Percent Auto 6.1 % (25-40); Mean Corpuscular HGB Conc 33.5 % (30-36); Mean Corpuscular Volume 83.6 fL (80-100); Monocytes Absolute Auto 800 /uL (0-900); Monocytes Percent Auto 6.3 % (3-14); Neutrophils Absolute Auto 10800 /uL (1500-7000); Neutrophils Percent Auto 87.3 % (50-75); Platelet Count 188 X10^3/uL (150-400); Red Blood Cell Count 4.58 X10^6/uL (4.5-5.9); Red Cell Distribution Width 21.3 % (11.6-14.8); White Blood Cell Count 12.4 X10^3/uL (4.5-11.0)
[2021-12-27 06:36] LABS: Anisocytosis 2+
--- NOTE | 2021-12-27 06:45 | PC.NURSE ---
Shift Note-Patient has been awake throughout the night, scheduled 100mg Seroquel given at HS-ineffective. IV Ativan and IV Haldol given per prn orders-ineffective for sleep. Patient has been confused, restless and impulsive, some hallucinations, mostly cooperative as far as following simple directions, not combative or cursing, only few episodes of moderate agitation. Tylenol given for right arm pain and fever 99.6-effective. Small formed BM, large urinary incontinence x2. Bed or chair alarm on, curtain open for continuos viewing.
[2021-12-27] MEDS: QUETIAPINE 25 MG TABLET 50 MG PO ×3 (07:32→15:46)
[2021-12-27 07:58] VITALS: BP 142/74; PULSE 116; RESP 27; TEMP 36.5; O2SAT 92
[2021-12-27] MEDS: NYSTATIN CREAM 30 GM 1 APPLIC TOP (09:00)
[2021-12-27] MEDS: ENOXAPARIN 40 MG/0.4 ML SYRINGE SUBCUT ×2 (09:00→21:05)
[2021-12-27] MEDS: SODIUM CHLORIDE 0.9% FLUSH 10 ML IV ×2 (09:00→21:06)
[2021-12-27 11:00] VITALS: O2SAT 93
[2021-12-27 11:45] VITALS: BP 132/63; PULSE 114; RESP 22; TEMP 36.9; O2SAT 93
--- NOTE | 2021-12-27 11:58 | CM.DPNOTE ---
DCP Note According to Dr Pereyra, patient medically ready for discharge. According to medical team, patient is C19+, able to ambulate in room, has behavioral disturbance related to dementia, smokes daily, and can be resistant to care. Patient has [employer] insurance. Patient is not a candidate for SNF at this time Hx of [facility], hx of stay at [facility] SNF Placed call to dtr Nessa to discuss patient's discharge. Attempted to outline the barriers to placement at Intermediate Facility (listed above), dtr stated concerns about patient's return home w/ HH d/t memory loss and incontinence, also stating he won't go into any facility once home Strongly encouraged dtr to make an APS report, this [facility] K[facility] STITCHER will complete based on dtr's stated concerns Encouraged dtr to research increasing patient's in home care; dtr worried there will be no care d/t patient's current COVID infection. Dtr states she cannot care for patient d/t his COVID infection. Explained that patient wants to return home and that there is no longer any medical component to patient's care here Reviewed prior notes from physicians and social workers; asked what progress dtr had made in researching and/or securing long term care social worker care options? none Dtr states she has been gone for 7 months Suggested that family complete the [facility] Inter[facility] Application JUAN, in addition, family should begin researching additional in home care resources vs memory care units (either private pay vs [facility]) JUAN Daughter Nessa again states concerns. CM team will investigate HACH program through [facility] Updated Dr Pereyra. Dtr requests patient's DC tomorrow so that I can figure out a ride home LINDA Leyva
--- NOTE | 2021-12-27 12:09 | CM.DPNOTE ---
[facility] per Susanna and received fax conf. Saranya Duong CM Assist.
--- NOTE | 2021-12-27 12:24 | CM.DPNOTE ---
APS Report Date/Time Submitted: 12/27/2021 12:23 PM Online Report Confirmation Number: [id number] Concerns for self neglect. In addition, family would benefit from education re: trajectory of disease process LINDA Leyva
--- NOTE | 2021-12-27 13:10 | CM.DPNOTE ---
Addendum entered by LINDA Marquez 12/28/21 08:38: ADD: No beds at [facility] and [facility] requires either Negative test at least 10 days after the covid positive or 20 days from the date of covid positive. JW Original Note: DCP Note Placed call to the following Dementia care units to research respite vs snf care options- [facility]: No COVID Whitley Hwang: [email or web address], sent email asking if would consider C19+ Kay Nuñez: Will check with team and get back to this [facility]
--- NOTE | 2021-12-27 13:20 | PC.NURSE ---
Pt has been pleasant and calm thus far this shift. Is impulsive and does attempt to get up unassisted to go to the bathroom. He is easily redirectable and distractable and is cooperative with care. Staff have been working with him to use call light and wait for assistance before getting up and pt has been able to do so although not consistently. His gait is slow but steady with use of fww. Using gait belt, non skid socks, and fww for safety. Pt is ambulating to/from BR and has been mostly continent of bowel and bladder this shift.
--- NOTE | 2021-12-27 15:36 | PM.PN.1 ---
Subjective Subjective Date Patient Seen: 12/27/21 Interval history: Now off of supplemental oxygen. Remains impulsive and stubborn. He is redirectable but weak and difficult to arise from the bed. He requires signficant help but often times cannot follow directions. Exam Vital Signs (past 8 hours): - 12/27/21 07:58 12/27/21 11:00 12/27/21 11:45 Temperature 97.7 F 98.5 F Pulse Rate 116 H 114 H Respiratory Rate 27 H 22 Blood Pressure 142/74 H 132/63 Pulse Oximetry 92 93 93 Fraction of Inspired Oxygen 32 Oxygen Delivery Method Room Air Oxygen Flow Rate 0 Narrative Exam Narrative: GEN: comfortable appearing but irritable (still on precedex), awake, alert but confused. HEENT: moist mucous membranes, PERRL NECK: trachea midline, no JVD CV: regular rate and rhythm, no murmurs PULM: No obvious wheezing, rhonchi, rales, poor effort. ABD: soft, nontender, nondistended, no organomegaly EXT: warm and well perfused with trace edmea NEURO: ambulatory with walker. Needs assistance to get to edge of the bed, but once ambulatory he does well with a walker. No focal deficits. Alert but confused. Poor short term memory. Objective Labs Result Diagrams: 12/27/21 05:01 12/27/21 05:01 Labs: Laboratory Results - last 24 hr 12/27/21 12/27/21 05:01 05:01 WBC 12.4 H RBC 4.58 Hgb 12.9 L Hct 38.3 L MCV 83.6 MCH 28.0 MCHC 33.5 RDW 21.3 H Plt Count 188 Neut % (Auto) 87.3 H Lymph % (Auto) 6.1 L [place] % (Auto) 6.3 Eos % (Auto) 0.0 L Baso % (Auto) 0.3 Neut # (Auto) 83549 H Lymph # (Auto) 800 L [place] # (Auto) 800 Eos # (Auto) 0 Baso # (Auto) 0 RBC Morphology See below Anisocytosis 2+ H Sodium 135 L Potassium 3.7 Chloride 96 L Carbon Dioxide 31 BUN 38 H Creatinine 0.98 Estimated GFR > 60 BUN/Creatinine Ratio 38.8 H Glucose 104 Calcium 8.9 Magnesium 1.7 Total Bilirubin 0.4 AST 68 H ALT 32 Alkaline Phosphatase 81 Total Protein 7.1 Albumin 3.6 Globulin 3.5 Albumin/Globulin Ratio 1.0 [facility] Medical History Acquired hypothyroidism (09/16/16) Actinic keratosis Basal cell carcinoma 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) Colon polyps CVA (cerebral vascular accident) Depression (06/29/15) Erectile dysfunction (02/12/16) Essential hypertension (06/29/15) Gout Hemorrhoids Hyperlipemia Insomnia Obstructive sleep apnea Osteoarthritis Primary insomnia (09/16/16) Squamous cell carcinoma Surgical History History of ectropion repair (10/2017) Hx of surgical procedure Family History Family/Other Unknown family medical history Social History household members: none Smoking Status: Former smoker alcohol intake: never Assessment & Plan Assessment & Plan narrative: Mr. George is an 86M PMH COPD, CHF, dementia who presents with acute respiratory failure. On precedex for sedation in setting of acute encephalopathy and remains in the ICU. 1. Acute hypoxemic and hypercarbic respiratory failure from COVID pneumonia and COPD exacerbation, possible CHF exacerbation, resolved. -COVID positive, may be shedding from past exposure -continued steroids and remdesevir until off of supplemental oxygen, discontinued today 12/26. -patient did require bipap for CO2 narcosis, now improved and off of supplemental oxygen. -goal O2 is greater than 88% -continue nebs for COPD. Will stop steroids as this may be contributing to his behavior. -continue gentle diuresis for CHF exacerbation -careful with opiates 2. Acute encephalopathy due to hypercarbic respiratory failure and probable chronic cognitive impairment. -patient remains confused and at times aggressive. He was on precedex for quite some time to help him through his respiratory failure at first. - respiratory failure now resolved. -discussed with psychiatry who recommended high dose seroquel with 50 mg TID and 100 mg at bedtime. His behavior is much improved today. -try to avoid / limit haldol and ativan given his age and respiratory symptoms. 3. Depression -continue duloxetine 4. GERD -continue protonix 5. Hypertension -hold atenolol 6. Dementia -chronic 7. BPH -hold flomax for now CODE: Full Proxy: Agnes Tapiajulitoeric I have utilized all available resources to reconcile the patient's home medications Dispo: Patient's daughter requesting SNF however this is unlikely given his behavioral disturbances noted here. Plan is for discharge home with home health tomorrow. Time Spent With Patient Critical Care time: I spent a total of [] minutes of critical care time on this patient's care today; this time is exclusive of procedural time. Quality VTE Deep Vein Thrombosis/Pulmonary Embolism Present on Admission: No
[2021-12-27] MEDS: ACETAMINOPHEN 325 MG TABLET 650 MG PO (16:36)
[2021-12-27 17:00] VITALS: BP 143/63; PULSE 102; RESP 22; TEMP 36.8; O2SAT 90
[2021-12-27] MEDS: DICLOFENAC 1% GEL 100 GM 1 APPLIC TOP (17:28)
[2021-12-27] MEDS: BENZOCAINE/MENTHOL 1 LOZ PKT 1 EACH PO (18:34)
[2021-12-27 20:20] VITALS: BP 111/64; PULSE 82; RESP 21; TEMP 36.8; O2SAT 92
[2021-12-27] MEDS: QUETIAPINE 25 MG TABLET 100 MG PO (21:05)
[2021-12-28 03:00] VITALS: BP 109/68; PULSE 66; RESP 19; TEMP 36.3; O2SAT 92
--- NOTE | 2021-12-28 06:11 | PC.NURSE ---
0600- Patient finally went to sleep at 3Am. Patient does have a persistent cough when lying in bed and rests better up in the chair. Patient has been using his call light to call for assist to the bathroom. Patient has been cooperative though forgetful at times. Denies pain. Labs deferred to later in the morning to allow patient to sleep. Will monitor.
[2021-12-28 07:54] LABS: Add Manual Diff / Slide Review NO; Basophils Absolute Auto 0 /uL (0-100); Basophils Percent Auto 0.1 % (0-2); Eosinophils Absolute Auto 0 /uL (0-450); Eosinophils Percent Auto 0.4 % (2-4); Hematocrit 35.9 % (41-53); Lymphocytes Absolute Auto 1600 /uL (1100-4500); Mean Corpuscular HGB Conc 33.5 % (30-36); Mean Corpuscular Hemoglobin 28.1 PG (26-34); Mean Corpuscular Volume 83.8 fL (80-100); Monocytes Absolute Auto 900 /uL (0-900); Monocytes Percent Auto 11.6 % (3-14); Neutrophils Absolute Auto 5400 /uL (1500-7000); Neutrophils Percent Auto 67.9 % (50-75); Platelet Count 192 X10^3/uL (150-400); Red Blood Cell Count 4.28 X10^6/uL (4.5-5.9); White Blood Cell Count 7.9 X10^3/uL (4.5-11.0)
[2021-12-28 08:00] VITALS: BP 144/85; PULSE 84; RESP 18; TEMP 36.9; O2SAT 100
[2021-12-28 08:08] LABS: Alanine Aminotransferase 48 IU/L (<50); Albumin 3.6 g/dL (3.5-5.0); Albumin Globulin Ratio 1.1 (1.0-2.8); Alkaline Phosphatase 81 U/L (38-126); Aspartate Aminotransferase 61 IU/L (17-59); BUN Creatinine Ratio 35.2 (6-22); Bilirubin Total 0.4 mg/dL (0.2-1.3); Blood Urea Nitrogen 45 mg/dL (9-20); Calcium 8.6 mg/dL (8.4-10.2); Carbon Dioxide 29 mmol/L (22-32); Chloride 96 mmol/L (98-107); Estimated Glomerular Filt Rate 55 mL/min (>60); Globulin 3.3 g/dL (1.7-4.1); Glucose 99 mg/dL (80-110); HEMOLYSIS < 15 (0-50); Magnesium 1.8 mg/dL (1.6-2.3); Potassium 2.9 mmol/L (3.4-5.1); Sodium 133 mmol/L (137-145); Total Protein 6.9 g/dL (6.3-8.2)
[2021-12-28] MEDS: ENOXAPARIN 40 MG/0.4 ML SYRINGE SUBCUT (08:27)
[2021-12-28] MEDS: QUETIAPINE 25 MG TABLET 50 MG PO (08:27)
[2021-12-28] MEDS: NYSTATIN CREAM 30 GM 1 APPLIC TOP (08:28)
[2021-12-28] MEDS: SODIUM CHLORIDE 0.9% FLUSH 10 ML IV (08:28)
[2021-12-28] MEDS: POTASSIUM CHLORIDE 20 MEQ TAB 40 MEQ PO (08:29)
--- NOTE | 2021-12-28 08:56 | PC.NURSE ---
Addendum entered by Tho Main R.N. 12/28/21 15:15: Assisted pt to dress and pt transferred independently from chair to w/c with use of fww. All belongings were gathered and sent with pt at d/c. Escorted pt to POV. Reviewed medication changes, isolation precautions, covid dx, CDC recommendations. Provided dc packet and educational materials. Provided senior resource pamphlet and website to find listings of adult family homes. Also reviewed smoking cessation and hospitalist's discharge recommendations. Pt and daughter verbalize understanding. Original Note: Rec'd pt sitting up to chair, resting with eyes closed. Pt awoke and used call light, waited for assitance and requested to go to the BR. Pt is using fww and is able to independently rise from chair and walk to the BR demonstrating proper use of AD. Gait is steady. Pt denies shortness of breath on exertion. He is denying pain this AM which is surprising to him. He states that he slept and he feels much better today compared to yesterday. He is asking that I call his daughter, Nessa, to take him home. He is cooperative with care and able to identify self, place, , and year. He is forgetful and asks repetitive questions at times. He is using the call light which is in easy reach and making his needs known. Maintaining chair alarm for safety.
--- NOTE | 2021-12-28 14:11 | CM.DPNOTE ---
Faxed order and face to face to [facility]. Received fax conf. Will send dc summary when avail. Saranya Duong CM Assist.
--- NOTE | 2021-12-28 19:49 | P.DS_ITS ---
History of Present Illness History of Present Illness Chief complaint: SOB Narrative: 86M with PMH ANTTY, dementia, HTN, HL, BPH, CVA, GERD, COPD, CHF who presents to the hospital with shortness of breath and altered mental status. He has been in the hospital many times with similar presentation. He was recently started on oxycodone due to pain as an outpatient. He took this last night and developed shortness of breath and EMS evaluated him and he refused transfer. He then took more oxycodone after they left and he became worse. He was noted to be confused and hypoxic and brought in to the hospital. Of note he was at [facility] over a month ago that had a COVID outbreak. In the ED, workup was done vitals notable for rr in the 20s, sats in the 80s. Labs notable for WBC 9.3, hgb 12.1, plts 185, creatinine 0.91. Procal 0.13, trop negative, BNP 695. Ammonia negative. He was given narcan and first dose had some improvement, but additional doses did not improve his mentation. ABG showed pH 7.26, CO2 72.6. He was placed on BIPAP. Chest xray concerning for possible fluid with trace effusion. CT head with old infarcts. Repeat ABG showed improving CO2, and patient's mentation slightly improved. He was ordered for lasix, steroids, remdesivir, and admitted for further treatment. Discharge Providers Provider Date of admission: 12/24/21 11:31 Discharge Date: 12/28/21 Primary care physician: Larry Roman MD Consults: 12/24/21 12:53 Consult to Tele-information delivery analyst Routine Comment: Consulting Provider: Frankie [employer] Reason for consultation: [employer] services Has provider been notified: Yes 12/28/21 09:14 Consult to Home Health Routine Comment: Reason For Exam: Home Health upon DC Discharge provider: Efren Staples MD Summary Hospital Course Discharge Diagnosis: 1. Acute hypoxemic and hypercarbic respiratory failure 2. COVID pneumonia 3. COPD exacerbation 4. Acute encephalopathy 5. Chronic depression 6. Dementia Hospital Course: Patient was admitted and initially treated in ICU with BiPAP, dexamethasone and remdesivir. He was on Precedex for sedation. He responded well to respiratory measures and at this time he is breathing comfortably with normal O2 sats on room air. He became quite confused and at times aggressive. This responded well to Seroquel. He is being discharged on Seroquel but should taper off in the next couple of weeks. Status at Discharge Cognitive/behavioral status at discharge: oriented Functional status at discharge: independent ambulation Overall status at discharge: patient is progressing back to baseline Time Spent with Patient Time spent: Greater than 30 minutes Exam Vital Signs (past 8 hours): Fraction of Inspired Oxygen 32 Oxygen Delivery Method Room Air Oxygen Flow Rate 0 Narrative Exam Narrative: General: Alert very pleasant male sitting in chair and appearing comfortable, breathing nonlabored, cooperative Lungs: Clear to auscultation Heart: Regular rhythm Extremities: No edema Neurological: Oriented to person and place, speech normal, affect normal Objective Labs Result Diagrams: 12/28/21 07:26 12/28/21 07:26 Labs: Laboratory Results - last 24 hr 12/28/21 12/28/21 07:26 07:26 WBC 7.9 RBC 4.28 L Hgb 12.0 L Hct 35.9 L MCV 83.8 MCH 28.1 MCHC 33.5 RDW 20.0 H Plt Count 192 Neut % (Auto) 67.9 Lymph % (Auto) 20.0 L [place] % (Auto) 11.6 Eos % (Auto) 0.4 L Baso % (Auto) 0.1 Neut # (Auto) 5400 Lymph # (Auto) 1600 [place] # (Auto) 900 Eos # (Auto) 0 Baso # (Auto) 0 Sodium 133 L Potassium 2.9 L Chloride 96 L Carbon Dioxide 29 BUN 45 H Creatinine 1.28 H Estimated GFR 55 L BUN/Creatinine Ratio 35.2 H Glucose 99 Calcium 8.6 Magnesium 1.8 Total Bilirubin 0.4 AST 61 H ALT 48 Alkaline Phosphatase 81 Total Protein 6.9 Albumin 3.6 Globulin 3.3 Albumin/Globulin Ratio 1.1 [facility] Medical History Acquired hypothyroidism (09/16/16) Actinic keratosis Basal cell carcinoma 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) Colon polyps CVA (cerebral vascular accident) Depression (06/29/15) Erectile dysfunction (02/12/16) Essential hypertension (06/29/15) Gout Hemorrhoids Hyperlipemia Insomnia Obstructive sleep apnea Osteoarthritis Primary insomnia (09/16/16) Squamous cell carcinoma Surgical History History of ectropion repair (10/2017) Hx of surgical procedure Family History Family/Other Unknown family medical history Social History household members: none Smoking Status: Former smoker alcohol intake: never Discharge Plan Discharge Plan Patient Disposition: Home Provider Discharge Comment: You were treated with Remdesivir and dexamethasone for respiratory failure due to COVID pneumonia. You are likely no longer contagious but be aware your COVID PCR testing may remain positive for a number of weeks. We are sending you home with prescription for Seroquel due to hospital related acute delirium. You should gradually taper off Seroquel over the next couple of weeks. Avoid over the counter sleep aids (don't work and make you confused). Take Tylenol as needed for pain. Please quit smoking. Discharge orders & Medications Prescriptions: New quetiapine [Seroquel] 50 mg tablet See Rx Instructions .ROUTE .COMPLEX 30 Days Qty: 42 0RF Rx Instructions: 100 mg twice daily for 3 days, 50 mg twice daily for 3 days, 50 mg at bedtime until seen by Dr Roman acetaminophen 325 mg tablet 650 mg PO Q6H PRN (Reason: pain) Qty: 1 0RF Continued pantoprazole 40 mg tablet,delayed release (DR/EC) 40 mg PO BID Qty: 180 3RF Label Comments: 40 mg PO BID tamsulosin 0.4 mg capsule 0.4 mg PO BEDTIME Qty: 90 3RF duloxetine 20 mg capsule,delayed release(DR/EC) 20 mg PO DAILY Qty: 90 1RF atenolol 50 mg tablet 50 mg PO BID Qty: 180 1RF allopurinol 100 mg tablet 100 mg PO DAILY Qty: 90 1RF (DME) glucometer and test strips See Rx Instructions .Route .MEDSUPPLY Qty: 1 0RF Rx Instructions: As directed cholecalciferol (vitamin D3) [Vitamin D3] 50 mcg (2,000 unit) Capsule 2,000 unit PO DAILY 0RF amlodipine 10 mg tablet 10 mg PO DAILY 0RF Rx Instructions: TAKE 1 TABLET BY MOUTH EVERY DAY Saccharomyces boulardii [Florastor] 250 mg Capsule 250 mg PO DAILY 0RF melatonin 5 mg Tablet 5 mg PO BEDTIME 0RF potassium chloride 20 mEq Tablet Extended Release 20 meq PO DAILY 0RF Follow up/Referrals: Larry Roman MD [Primary Care Provider] - 01/07/22 (Keep appointment on January 07) Diet/Activity/Treatments Diet: Regular Visit Report/Discharge Packet Instructions: Serious Ways to Stop Smoking, How to Prevent Falls, DI for COVID- 19 (Suspected or Confirmed ), How to Care for Someone with COVID-19 Discharge Data Primary Care Provider: Larry Roman Quality VTE Deep Vein Thrombosis/Pulmonary Embolism Present on Admission: No
--- NOTE | 2021-12-29 14:00 | CM.DPNOTE ---
DC Note Late Entry Patient was discharged yesterday w/dtr Nessa via pov. Provided Senior Resource Guide and included the web link (through [facility]) to investigate Adult [facility] Home options in [facility] In addition, secured [facility], high acuity program. However, heard later that [facility] had been active which dtr Nessa failed to mention to this [employer]IGHW[employer]INE[employer] Inevtiably, Tomas Motley confirmed with patient/family that they wanted to keep [facility] and refused [facility] referral. Elissa at [facility] and [facility] were in direct communication about this Plan: DC home w/family, [facility] services, and new Rx for Seroquel patient's mentation much improved upon DC, accroding to [facility] Mercado. JW
--- NOTE | 2021-12-29 14:21 | CM.DPNOTE ---
DC Note Late Entry ADD: Attempted to connect with Jovan Porras at [facility] P# [phone], multiple attempts throughout the day; playing phone tag CONRAD Beaver, had said that Jovan's msg stated patient had maxed out on available assist (?) Unable to clarify. JW
== END 2021-12-28 15:10 | disposition home health service (06) | DRG 177 ==
LOC: ED 10:31 → AC 11:32 → ICU 14:03
PROVIDERS: Internal Medicine; Admitting Provider Internal Medicine; Emergency Provider Emergency Medicine; Family Provider Student in an Organized Health Care Education/Training Program; PCP Student in an Organized Health Care Education/Training Program; Referring Provider Emergency Medicine; Visit Provider Internal Medicine
DX: U07.1 COVID-19 (principal); J12.82 Pneumonia due to coronavirus disease 2019; J96.02 Acute respiratory failure with hypercapnia; J96.01 Acute respiratory failure with hypoxia; J44.1 Chronic obstructive pulmonary disease with (acute) exacerbation; G93.49 Other encephalopathy; F32.A Depression, unspecified; K21.9 Gastro-esophageal reflux disease without esophagitis; I10 Essential (primary) hypertension; N40.0 Benign prostatic hyperplasia without lower urinary tract symptoms; M10.9 Gout, unspecified; F03.90 Unspecified dementia, unspecified severity, without behavioral disturbance, psychotic disturbance, mood disturbance, and anxiety; G47.33 Obstructive sleep apnea (adult) (pediatric); Z87.891 Personal history of nicotine dependence
CPT/HCPCS: 36415; 36600; 70450; 71045; 80048; 80053; 80320; 80329; 82140; 82550; 82805; 83605; 83690; 83735; 83880; 84145; 84484; 85025; 85379; 85610; 85730; 87040; 87635; 87797; 93005; 93010; 94640; 94660; 94760; 96365; 96375; 99285; 99291; 99292; C9803; G0480; J1100; J1630; J1650; J1940; J2060; J2310; J7613

== ENCOUNTER 2022-01-24 10:44 | Observation (INO) | payer OTHER, SELFPAY ==
[2021-12-25 08:23] VITALS: PULSE 60; RESP 23; O2SAT 99
[2021-12-26 12:34] VITALS: BMI 42.0
[2022-01-24] VITALS (25 sets, daily range): BP systolic 107–160; BP diastolic 51–76; PULSE 57–67; RESP 16–25; TEMP 36.4–36.7; O2SAT 85–100; BMI 33.5; BMI 33.6
--- NOTE | 2022-01-24 10:56 | DI.RAD.S_ITS ---
PROCEDURE: XR CHEST 1V INDICATIONS: Shortness of breath TECHNIQUE: One view of the chest was acquired. COMPARISON: [facility], CT, CT ANGIO CHEST PE PROTOCOL, 11/02/2021, 0:15. [facility], CR, XR CHEST 1V, 12/24/2021, 9:35. FINDINGS: Cardiomegaly. Increased interstitial and airspace opacities in both lungs. Small right and possible trace left pleural effusions. Low lung volumes. IMPRESSION: Low lung volumes with cardiomegaly and moderate cardiogenic pulmonary edema. Dictated by: Gilson Bustamante M.D. on 01/24/2022 at 11:48 Approved by: Gilson Bustamante M.D. on 01/24/2022 at 11:52
[2022-01-24 11:24] LABS: Add Manual Diff / Slide Review NO; Basophils Absolute Auto 0 /uL (0-100); Basophils Percent Auto 0.5 % (0-2); Eosinophils Absolute Auto 100 /uL (0-450); Eosinophils Percent Auto 2.6 % (2-4); Hematocrit 33.9 % (41-53); Hemoglobin 11.3 g/dL (13.5-17.5); Lymphocytes Absolute Auto 1400 /uL (1100-4500); Lymphocytes Percent Auto 25.6 % (25-40); Mean Corpuscular HGB Conc 33.3 % (30-36); Mean Corpuscular Volume 86.9 fL (80-100); Monocytes Absolute Auto 600 /uL (0-900); Monocytes Percent Auto 12.1 % (3-14); Neutrophils Absolute Auto 3100 /uL (1500-7000); Neutrophils Percent Auto 59.2 % (50-75); Platelet Count 188 X10^3/uL (150-400); Red Cell Distribution Width 19.2 % (11.6-14.8); White Blood Cell Count 5.3 X10^3/uL (4.5-11.0)
[2022-01-24 11:29] LABS: Alanine Aminotransferase 13 IU/L (<50); Albumin 3.8 g/dL (3.5-5.0); Albumin Globulin Ratio 1.1 (1.0-2.8); Alkaline Phosphatase 75 U/L (38-126); Aspartate Aminotransferase 24 IU/L (17-59); BUN Creatinine Ratio 18.4 (6-22); Bilirubin Total 0.2 mg/dL (0.2-1.3); Blood Urea Nitrogen 19 mg/dL (9-20); Calcium 8.6 mg/dL (8.4-10.2); Carbon Dioxide 32 mmol/L (22-32); Chloride 106 mmol/L (98-107); Estimated Glomerular Filt Rate > 60 mL/min (>60); Globulin 3.4 g/dL (1.7-4.1); Glucose 108 mg/dL (80-110); HEMOLYSIS 21 (0-50); Lactate (Lactic Acid) 0.9 mmol/L (0.7-2.1); Potassium 4.6 mmol/L (3.4-5.1); Prothrombin Time 11.1 SECONDS (10.1-12.7); Sodium 142 mmol/L (137-145); Total Protein 7.2 g/dL (6.3-8.2)
[2022-01-24 11:38] LABS: NT-proBNP (BNP-Adult 18+) 221 pg/mL (<450)
[2022-01-24 12:01] LABS: COVID19 -Nasal RAPID POSITIVE (Negative)
--- NOTE | 2022-01-24 12:19 | ED_ITS ---
HPI - SOB/Dyspnea General Chief Complaint: Shortness of Breath/Dyspnea Stated Complaint: Lethargic,low O2 Time Seen by Provider: 01/24/22 11:55 Source: patient and EMS Mode of arrival: EMS Limitations: no limitations History of Present Illness HPI Narrative: This is a 86-year-old male obstructive sleep apnea, dementia, hypertension, dyslipidemia, stroke, GERD, COPD and CHF as well as BPH. Patient presents for low O2 sat and lethargy. Patient gives minimal history. He tells me he does not have any chest pain he does not feel short of breath, he is somewhat confused he thinks he is at home initially, he falls asleep during our evaluation. But he denies any headache, no chest pain, back or abdominal pain, he denies any nausea or vomiting, he denies any diarrhea constipation and denies any urinary symptoms. He denies any swelling of his extremities. He states he has lung problems but does not elaborate. Patient does not give additional history. No known drug allergies per EMR. Related Data Home Medications Medication Instructions Recorded Confirmed cholecalciferol (vitamin D3) 50 2,000 unit PO DAILY 02/13/21 01/07/22 mcg (2,000 unit) capsule (Vitamin D3) Saccharomyces boulardii 250 mg 250 mg PO DAILY 11/02/21 01/07/22 capsule (Florastor) amlodipine 10 mg tablet 10 mg PO DAILY 11/02/21 01/07/22 melatonin 5 mg tablet 5 mg PO BEDTIME 11/02/21 01/07/22 Previous Rx's Medication Instructions Recorded pantoprazole 40 mg tablet,delayed 40 mg PO BID #180 tab 08/28/21 release allopurinol 100 mg tablet 100 mg PO DAILY #90 tab 10/23/21 atenolol 50 mg tablet 50 mg PO BID #180 tab 10/23/21 duloxetine 20 mg capsule,delayed 20 mg PO DAILY #90 cap 10/23/21 release tamsulosin 0.4 mg capsule 0.4 mg PO BEDTIME #90 cap 10/23/21 acetaminophen 325 mg tablet 650 mg PO Q6H PRN #1 tab 12/28/21 potassium chloride 20 mEq 20 meq PO DAILY 30 Days #30 tab 01/07/22 tablet,extended release quetiapine 100 mg tablet 100 mg PO BID #60 tab 01/07/22 Allergies Allergy/AdvReac Type Severity Reaction Status Date / Time No Known Drug Allergies Allergy Verified 01/24/22 10:56 Review of Systems Review of Systems ROS Unobtainable: All systems reviewed & are unremarkable except as noted in HPI and below 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 He is obtunded and awakens to verbal stimuli but falls back asleep quite quickly. HEENT: Atraumatic, pupils are equal round reactive to light, extraocular movements are intact, nares are clear. HEART: Regular rate and rhythm without murmur, clicks, rubs. LUNGS:Lungs clear to auscultation, no wheezes, rales, crackles, chest moves symmetrically, positive for tachypnea. No accessory muscle use. Speaks in 4-5 words. ABD:bowel sounds normal, soft, non-tender, no guarding, rebound, rigidity, no masses noted, no hepatosplenomegaly :No CVA tenderness MSCL: Non-tender, full range of motion NEURO:CN 2-12 intact, sensation normal SKIN: No rash, erythema or other skin changes Initial Vital Signs Initial Vital Signs: Vital Signs Pulse Oximetry 98 01/24/22 10:49 Course Orders Ordered: ED Orders 01/24/22 10:45 Complete Blood Count AUTO DIFF Stat Comprehensive Metabolic Panel Stat Lactate (Lactic Acid) Stat NT-proBNP (BNP-Adult 18+) Stat Prothrombin Time INR Stat Troponin & CK Cardiac Panel Stat 01/24/22 10:56 XR chest 1V Stat EKG-12 Lead Stat Measure peak expiratory flow ONCE RT Consult Eval and Treat Now 01/24/22 11:30 COVID19 -Nasal RAPID/Pre-Proc Stat 01/24/22 12:47 COVID19 - ADMIT (CUSTOMER QUALITY ENGINEER swab/PCR) Stat 01/24/22 13:20 ABG [Arterial Blood Gas] Stat Discontinued Medications Dexamethasone (Dexamethasone 10 Mg/Ml Vial) 10 mg IV NOW ONE Stop: 01/24/22 12:37 Last Admin: 01/24/22 12:53 Dose: 10 mg Documented by: JOELLEN Remdesivir 200 mg/ Sodium (Chloride) 250 mls @ 250 mls/hr IV NOW ONE Stop: 01/24/22 13:35 Last Infusion: 01/24/22 13:36 Dose: 0 mls/hr Documented by: Admin: 01/24/22 13:00 Dose: 250 mls/hr Documented by: JOELLEN Reevaluation(s) Reevaluation #1: Patient is requesting to return home, states his daughter is going to come pick him up when we call his daughter she states she also has COVID and does not feel comfortable taking care of him and his caregiver is unavailable and she will not be coming to pick him up. Patient does seem more oriented, he is certainly more alert than earlier but does not recall talking with me or that he was being told that he had coronavirus infection in and likely the cause of his low O2 sat. Patient endorses that he would like to return home and he does not care if he dies. His daughter earlier did state he would likely say that. She did confirm his DNR/DNI status. We discussed that he would benefit from at least having home O2 which he does not have available at this time and cannot be arranged from the emergency department. After sometime patient reluctantly agrees to stay until they can arrange home oxygen. Consultations Consultation #1: Spoke with daughter Nessa, patient states she makes his medical decisions. She states that DNR/DNI is consistent with patient's wishes. She and her are currently positive for COVID as well and notes that he was positive a month ago. Time: 12:26 Vital Signs Vital signs: Vital Signs - 8 hr 01/24/22 10:49 01/24/22 10:50 01/24/22 11:00 Temperature 97.6 F Pulse Rate 61 62 Respiratory Rate 21 22 Blood Pressure 132/60 129/56 L Pulse Oximetry 98 95 96 01/24/22 11:15 01/24/22 11:30 01/24/22 11:45 Temperature Pulse Rate 60 60 59 L Respiratory Rate 22 22 23 Blood Pressure 124/59 L 125/58 L 114/58 L Pulse Oximetry 93 93 95 01/24/22 12:00 01/24/22 12:15 01/24/22 12:16 Temperature Pulse Rate 63 61 Respiratory Rate 22 22 Blood Pressure 112/56 L 112/55 L Pulse Oximetry 85 L 85 L 01/24/22 12:17 01/24/22 12:18 01/24/22 12:30 Temperature Pulse Rate 60 Respiratory Rate 19 Blood Pressure Pulse Oximetry 86 L 88 L 97 01/24/22 12:31 01/24/22 12:33 01/24/22 12:45 Temperature Pulse Rate 62 60 60 Respiratory Rate 24 25 H 21 Blood Pressure 123/57 L 123/57 L 107/51 L Pulse Oximetry 97 100 87 L MDM - SOB/Dyspnea Lab Data Result diagrams: 01/24/22 10:45 01/24/22 10:45 Labs: Lab Results 01/24/22 01/24/22 01/24/22 Range/Units 10:45 10:45 10:45 WBC 5.3 (4.5-11.0) X10^3/uL RBC 3.90 L (4.5-5.9) X10^6/uL Hgb 11.3 L (13.5-17.5) g/dL Hct 33.9 L (41-53) % MCV 86.9 (80-100) fL MCH 29.0 (26-34) PG MCHC 33.3 (30-36) % RDW 19.2 H (11.6-14.8) % Plt Count 188 (150-400) X10^3/uL Neut % (Auto) 59.2 (50-75) % Lymph % (Auto) 25.6 (25-40) % [place] % (Auto) 12.1 (3-14) % Eos % (Auto) 2.6 (2-4) % Baso % (Auto) 0.5 (0-2) % Neut # (Auto) 3100 (1665-9575) /uL Lymph # (Auto) 1400 (5688-9968) /uL [place] # (Auto) 600 (0-900) /uL Eos # (Auto) 100 (0-450) /uL Baso # (Auto) 0 (0-100) /uL PT 11.1 (10.1-12.7) SECONDS INR 1.0 (0.9-1.3) ABG pH (7.35-7.45) ABG pCO2 (35-45) mmHg ABG pO2 (80-100) mmHg ABG HCO3 (22-26) mmol/L ABG Total CO2 (21-31) mmol/L ABG O2 Saturation (95-100) % ABG Base Excess (-2-2) mmol/L FiO2 Sodium 142 (137-145) mmol/L Potassium 4.6 (3.4-5.1) mmol/L Chloride 106 (98-107) mmol/L Carbon Dioxide 32 (22-32) mmol/L BUN 19 (9-20) mg/dL Creatinine 1.03 (0.66-1.25) mg/dL Estimated GFR > 60 (>60) mL/min BUN/Creatinine Ratio 18.4 (6-22) Glucose 108 (80-110) mg/dL Lactate (0.7-2.1) mmol/L Calcium 8.6 (8.4-10.2) mg/dL Total Bilirubin 0.2 (0.2-1.3) mg/dL AST 24 (17-59) IU/L ALT 13 (<50) IU/L Alkaline Phosphatase 75 (38-126) U/L Total Creatine Kinase (55-170) U/L CK-MB (CK-2) CK-MB (CK-2) Rel Index Troponin I (0.01-0.034) ng/mL NT-Pro-B Natriuret Pep 221 (<450) pg/mL Total Protein 7.2 (6.3-8.2) g/dL Albumin 3.8 (3.5-5.0) g/dL Globulin 3.4 (1.7-4.1) g/dL Albumin/Globulin Ratio 1.1 (1.0-2.8) SARS-CoV-2 (PCR) (Negative) 01/24/22 01/24/22 01/24/22 Range/Units 10:45 10:45 11:30 WBC (4.5-11.0) X10^3/uL RBC (4.5-5.9) X10^6/uL Hgb (13.5-17.5) g/dL Hct (41-53) % MCV (80-100) fL MCH (26-34) PG MCHC (30-36) % RDW (11.6-14.8) % Plt Count (150-400) X10^3/uL Neut % (Auto) (50-75) % Lymph % (Auto) (25-40) % [place] % (Auto) (3-14) % Eos % (Auto) (2-4) % Baso % (Auto) (0-2) % Neut # (Auto) (4031-5804) /uL Lymph # (Auto) (2250-1029) /uL [place] # (Auto) (0-900) /uL Eos # (Auto) (0-450) /uL Baso # (Auto) (0-100) /uL PT (10.1-12.7) SECONDS INR (0.9-1.3) ABG pH (7.35-7.45) ABG pCO2 (35-45) mmHg ABG pO2 (80-100) mmHg ABG HCO3 (22-26) mmol/L ABG Total CO2 (21-31) mmol/L ABG O2 Saturation (95-100) % ABG Base Excess (-2-2) mmol/L FiO2 Sodium (137-145) mmol/L Potassium (3.4-5.1) mmol/L Chloride (98-107) mmol/L Carbon Dioxide (22-32) mmol/L BUN (9-20) mg/dL Creatinine (0.66-1.25) mg/dL Estimated GFR (>60) mL/min BUN/Creatinine Ratio (6-22) Glucose (80-110) mg/dL Lactate 0.9 (0.7-2.1) mmol/L Calcium (8.4-10.2) mg/dL Total Bilirubin (0.2-1.3) mg/dL AST (17-59) IU/L ALT (<50) IU/L Alkaline Phosphatase (38-126) U/L Total Creatine Kinase 26 L (55-170) U/L CK-MB (CK-2) TNP CK-MB (CK-2) Rel Index TNP Troponin I < 0.012 (0.01-0.034) ng/mL NT-Pro-B Natriuret Pep (<450) pg/mL Total Protein (6.3-8.2) g/dL Albumin (3.5-5.0) g/dL Globulin (1.7-4.1) g/dL Albumin/Globulin Ratio (1.0-2.8) SARS-CoV-2 (PCR) Positive H (Negative) 01/24/22 01/24/22 Range/Units 12:47 13:20 WBC (4.5-11.0) X10^3/uL RBC (4.5-5.9) X10^6/uL Hgb (13.5-17.5) g/dL Hct (41-53) % MCV (80-100) fL MCH (26-34) PG MCHC (30-36) % RDW (11.6-14.8) % Plt Count (150-400) X10^3/uL Neut % (Auto) (50-75) % Lymph % (Auto) (25-40) % [place] % (Auto) (3-14) % Eos % (Auto) (2-4) % Baso % (Auto) (0-2) % Neut # (Auto) (1420-2665) /uL Lymph # (Auto) (5959-9010) /uL [place] # (Auto) (0-900) /uL Eos # (Auto) (0-450) /uL Baso # (Auto) (0-100) /uL PT (10.1-12.7) SECONDS INR (0.9-1.3) ABG pH 7.40 (7.35-7.45) ABG pCO2 45.4 H (35-45) mmHg ABG pO2 57 L (80-100) mmHg ABG HCO3 28 H (22-26) mmol/L ABG Total CO2 30 (21-31) mmol/L ABG O2 Saturation 89 L (95-100) % ABG Base Excess 3.0 H (-2-2) mmol/L FiO2 32 Sodium (137-145) mmol/L Potassium (3.4-5.1) mmol/L Chloride (98-107) mmol/L Carbon Dioxide (22-32) mmol/L BUN (9-20) mg/dL Creatinine (0.66-1.25) mg/dL Estimated GFR (>60) mL/min BUN/Creatinine Ratio (6-22) Glucose (80-110) mg/dL Lactate (0.7-2.1) mmol/L Calcium (8.4-10.2) mg/dL Total Bilirubin (0.2-1.3) mg/dL AST (17-59) IU/L ALT (<50) IU/L Alkaline Phosphatase (38-126) U/L Total Creatine Kinase (55-170) U/L CK-MB (CK-2) CK-MB (CK-2) Rel Index Troponin I (0.01-0.034) ng/mL NT-Pro-B Natriuret Pep (<450) pg/mL Total Protein (6.3-8.2) g/dL Albumin (3.5-5.0) g/dL Globulin (1.7-4.1) g/dL Albumin/Globulin Ratio (1.0-2.8) SARS-CoV-2 (PCR) Positive H (Negative) Imaging Data Chest x-ray: Radiologist's Impression: Klever George?(Hernandez)??86??M??1935 ? Allergy/Adv: No Known Drug Allergies (More??) Close Chest X-Ray (Signed) Gilson Bustamante - 01/24/[address] (Signed) Humble Franco - 12/24/21 Telemetry Strips 12/24/21 Telemetry Strips 12/24/21 Chest X-Ray (Signed) Amy Sauer - 12/24/21 Echocardiogram Ultrasound (Signed) Radha Aleman - 11/02/21 Renal Ultrasound (Signed) Fawn Palma - 11/02/21 Chest X-Ray (Signed) Narciso Haywood - 11/02/21 Chest CTA (Signed) Eduardo Kurtz - 11/02/21 Chest X-Ray (Signed) Eduardo Kurtz - 11/01/21 Brain MRI (Signed) Tho Mccall - 02/14/21 Telemetry Strips 02/13/[address] (Signed) HelenaShara - 02/13/21 Chest X-Ray (Signed) Karthikeyan Chahalwn - 02/13/21 Chest X-Ray (Signed) Raul Honeycutt - 01/28/21 Telemetry Strips 01/27/21 Telemetry Strips 01/27/21 Chest CTA (Signed) Raul Honeycutt - 01/27/21 Chest X-Ray (Signed) Raul Honeycutt - 01/27/21 Wrist X-Ray (Signed) Raul Honeycutt - 01/02/21 Echocardiogram Ultrasound (Signed) Bacilio Mohamud - 01/01/21 Knee X-Ray (Signed) Tho Mccall - 01/01/21 Knee X-Ray (Signed) Tho Mccall - 01/01/21 Ankle X-Ray (Signed) Tho Mccall - 01/01/21 Ankle X-Ray (Signed) Tho Mccall - 01/01/21 Vascular Ultrasound (Signed) Alberto Nash - 01/01/21 Chest X-Ray (Signed) Raul Honeycutt - 01/01/21 Vascular Ultrasound (Signed) Raul Honeycutt - 12/08/20 Radiology Report (Cancelled) Justice Saba - 12/07/20 Myocardial Perfusion Scan Nuc Med (Signed) Justice Saba - 12/07/20 Launch?[address] [address] XRay Report Signed Patient: Klever George MR#: [id number] : 1935 Acct:[id number] Age/Sex: 86 / M Date of Service: 01/24/22 Loc: ED Accession Number: [id number] ?? Procedure: XR chest 1V Ordering Provider: Angeles Gerardo D.O. PROCEDURE:? XR CHEST 1V ? INDICATIONS:? Shortness of breath ? TECHNIQUE:? One view of the chest was acquired.? ? COMPARISON:? [facility], CT, CT ANGIO CHEST PE PROTOCOL, 11/02/2021, 0:15.? [facility], CR, XR CHEST 1V, 12/24/2021, 9:35. ? FINDINGS:? ? Cardiomegaly.? Increased interstitial and airspace opacities in both lungs.? Small right and possible trace left pleural effusions.? Low lung volumes. ? IMPRESSION:? Low lung volumes with cardiomegaly and moderate cardiogenic pulmonary edema. ? ? ? Dictated by: Gilson Bustamante M.D. on 01/24/2022 at 11:48 ? ? Approved by: Gilson Bustamante M.D. on 01/24/2022 at 11:52?? ECG Data Attestation: I personally reviewed and interpreted this ECG as follows: Interpretation: EKG 1, sinus bradycardia rate of 59 IN 182 QRS 90 QTC 411. Rule new acute ST changes nonspecific change or LVH noted EKG 2, rate of 59 IN 190 QRS 80 QTC of 407, sinus bradycardia possible LVH, nonspecific change but no dynamic changes appreciated on EKG today. MDM Narrative Medical decision making narrative: This is an 86-year-old male who comes emergency department with hypoxia, patient is COVID positive, he has a COPD history, of strep take sleep apnea, dimension, hypertension dyslipidemia, prior stroke, CHF and BPH. Patient was admitted in December and discharged on December 28 for acute hypoxemic and hypercarbic respiratory failure COVID pneumonia and COPD exacerbation with encephalopathy likely worsened by CO2 retention. Patient's ABG today after being on nasal cannula in intermittently non-rebreather shows a pH of 7.402, pCO2 is 45 with a PO2 of 57 and bicarb of 28 patient shows hypoxic respiratory failure but no hypercapnic changes. Chest x-ray is clear, patient denies chest pain or sensation of shortness of breath. Is negative, BNP is normal, he has no major electrolyte or renal function and his hemoglobin is appropriate 11.3 and appears stable from earlier in December. Patient was accepted by hospitalist, Dr. Cowan. I spoke with his daughter patient was reluctant today but was very confused, patient's mentation improved after being on O2 for some time and he wanted to leave against medical advice but does not have a way to return home. After some discussion he is more agreeable to staying until home O2 can be set up, he does not wish to be intubated he does not wish CPR he has told me he is agreeable to IV medications. Discharge Plan Departure Clinical Impression: COVID-19 virus infection, Acute respiratory failure with hypoxia Prescriptions: No Action pantoprazole 40 mg tablet,delayed release (DR/EC) 40 mg PO BID Qty: 180 3RF Label Comments: 40 mg PO BID tamsulosin 0.4 mg capsule 0.4 mg PO BEDTIME Qty: 90 3RF duloxetine 20 mg capsule,delayed release(DR/EC) 20 mg PO DAILY Qty: 90 1RF atenolol 50 mg tablet 50 mg PO BID Qty: 180 1RF allopurinol 100 mg tablet 100 mg PO DAILY Qty: 90 1RF potassium chloride 20 mEq tablet extended release 20 meq PO DAILY 30 Days Qty: 30 0RF quetiapine 100 mg tablet 100 mg PO BID Qty: 60 5RF cholecalciferol (vitamin D3) [Vitamin D3] 50 mcg (2,000 unit) Capsule 2,000 unit PO DAILY 0RF amlodipine 10 mg tablet 10 mg PO DAILY 0RF Rx Instructions: TAKE 1 TABLET BY MOUTH EVERY DAY Saccharomyces boulardii [Florastor] 250 mg Capsule 250 mg PO DAILY 0RF melatonin 5 mg Tablet 5 mg PO BEDTIME 0RF acetaminophen 325 mg tablet 650 mg PO Q6H PRN (Reason: pain) Qty: 1 0RF Referrals: Larry Roman MD [Primary Care Provider] -
--- NOTE | 2022-01-24 12:36 | PC.NURSE ---
Pt repositioned in bed, O2 sat dropped to 85, physician at the bedside, oxygen increased with no improvement. Pt placed on non-rebreather @ 15L. Sat improved over next 5 mins, placed back on nasal cannula @ 7L, O2 @97%. Current sat 92 on 5L. Physician aware.
[2022-01-24 12:45] LABS: Creatine Kinase 26 U/L (55-170)
[2022-01-24] MEDS: DEXAMETHASONE 10 MG/ML VIAL IV (12:53)
[2022-01-24 12:58] LABS: Troponin I < 0.012 ng/mL (0.01-0.034)
[2022-01-24] MEDS: REMDESIVIR 200 MG in SODIUM CHLORIDE 0.9% 210 ML 250 MG IV (13:00)
[2022-01-24 14:14] LABS: COVID19 - ADMIT (NP swab/PCR) POSITIVE (Negative)
--- NOTE | 2022-01-24 14:20 | PC.NURSE ---
Pt stood up from stretcher and stated he wished to leave, pt educated on current oxygen needs and pt verbalizes understanding, further stated he understands he may go home and but is okay with that. Additional x2 RN in room and RT in room educating pt, but pt continued to verbalizes wishes to go home. Pt aaox3/3, 90% on RA while sitting up in wheelchair. Dr. Gerardo further spoke to pt. Pt daughter, Nessa, called and Nessa spoke to pt through phone, explained to pt she has covid and would not pick and shovel man nor be able to care for pt, states pt lives at home alone and would not have assistance. After long conversation with daughter and additional education by this RN and RT, pt states he is agreeable to stay maximum of 2 nights at the hospital, states he will stay long enough to have oxygen set up at his residence. IV previously removed per pt request, pt agreeable to new IV attempts. Pt sitting up in wheelchair, oxygen reapplied, call light in place.
[2022-01-24 14:24] LABS: HCO3 ABG 28 mmol/L (22-26); Oxygen Saturation ABG 89 % (95-100); PCO2 ABG 45.4 mmHg (35-45); PO2 ABG 57 mmHg (80-100); TCO2 ABG 30 mmol/L (21-31)
[2022-01-24 14:25] LABS: Fractionated Inspired Oxygen 32
--- NOTE | 2022-01-24 17:01 | PC.NURSE ---
Rec'd pt from ED to rm 230 via w/c on O2. Pt states he is not sure why he had to come to the hospital since he feels ok. He states that his daughter has COVID and he has just tested positive although he does remember being admitted recently for same diagnosis. He denies any shortness of breath, dyspnea, dizziness, lightheadedness, chest pain/pressure. He states that he was recently at his PCP (01/07) and was being set up with home oxygen but has yet to receive any. Currently pt is requiring 2L NC with SPO2 ranging 93-96%. Spoke with daughter, Nessa, who states that the home oxygen company just called today to set up delivery. Daughter expresses concern r/t pt's continued smoking plus home oxygen use. Since pt no longer drives, I inquired about how pt obtains tobacco products to which daughter states We buy them. Educated daughter re importance of smoking cessation in healing after having COVID infx as well as poor outcomes r/t mult comorbidities. Daughter states, If we don't buy them, he's really bad. Educated daughter to importance of setting boundaries vs clarifying with her father what his wishes are going forward regarding medical care. She verbalizes understanding. Pt is sitting up to chair with bed alarm on and call light in easy reach. He is agreeable to using call light and waiting for assistance before getting up. He is declining removing his clothing for skin assessment or monitor placement. He is agreeable to having his VS checked. Will honor pt's wishes. Safety intact.
--- NOTE | 2022-01-24 18:21 | PM.HP.1 ---
History of Present Illness History of Present Illness Chief complaint: Lethargic,low O2 Narrative: This is an 86-year-old male who came to the emergency department with hypoxia, patient is COVID positive, he has a COPD history, of sleep apnea, dementia, hypertension dyslipidemia, prior stroke, CHF and BPH.? Patient was admitted in December and discharged on December 28 for acute hypoxemic and hypercarbic respiratory failure COVID pneumonia and COPD exacerbation with encephalopathy likely worsened by CO2 retention. Today, patient's ABG today after being on nasal cannula in intermittently non-rebreather shows a pH of 7.402, pCO2 is 45 with a PO2 of 57 and bicarb of 28 patient shows hypoxic respiratory failure but no hypercapnic changes.? Chest x-ray is clear, patient denies chest pain or sensation of shortness of breath.? Is negative, BNP is normal, he has no major electrolyte or renal function and his hemoglobin is appropriate 11.3 and appears stable from earlier in December.?Patient was very confused, patient's mentation improved after being on O2 for some time and he wanted to leave against medical advice but does not have a way to return home.? After some discussion he is more agreeable to staying until home O2 can be set up, he does not wish to be intubated he does not wish CPR he has told me he is agreeable to IV medications.? 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 Surgical History History of ectropion repair (10/2017) Hx of surgical procedure Family & Social History Family History Family/Other Unknown family medical history Social History: household members caregiver,none Prior Living Arrangements House Safety & Behavioral: Feels Safe in Current Yes Environment Been Physically Hurt or No Threatened By a Person Tobacco & Substance use: Tobacco type cigarettes Smoking Status Current every day smoker alcohol intake current alcohol intake frequency 0-2 drinks per day Substance Use Type does not use Meds Home Medications and Allergies Home Medications Medication Instructions Recorded Confirmed Type cholecalciferol (vitamin D3) 50 2,000 unit PO DAILY 02/13/21 01/24/22 History mcg (2,000 unit) capsule (Vitamin D3) pantoprazole 40 mg tablet,delayed 40 mg PO BID #180 tab 08/28/21 01/24/22 Rx release allopurinol 100 mg tablet 100 mg PO DAILY #90 tab 10/23/21 01/24/22 Rx atenolol 50 mg tablet 50 mg PO BID #180 tab 10/23/21 01/24/22 Rx duloxetine 20 mg capsule,delayed 20 mg PO DAILY #90 cap 10/23/21 01/24/22 Rx release tamsulosin 0.4 mg capsule 0.4 mg PO BEDTIME #90 cap 10/23/21 01/24/22 Rx Saccharomyces boulardii 250 mg 250 mg PO DAILY 11/02/21 01/24/22 History capsule (Florastor) amlodipine 10 mg tablet 10 mg PO DAILY 11/02/21 01/24/22 History melatonin 5 mg tablet 5 mg PO BEDTIME 11/02/21 01/24/22 History acetaminophen 325 mg tablet 650 mg PO Q6H PRN #1 tab 12/28/21 01/24/22 Rx potassium chloride 20 mEq 20 meq PO DAILY 30 Days #30 tab 01/07/22 01/24/22 Rx tablet,extended release quetiapine 100 mg tablet 100 mg PO BID #60 tab 01/07/22 01/24/22 Rx Allergies Allergy/AdvReac Type Severity Reaction Status Date / Time No Known Drug Allergies Allergy Verified 01/24/22 10:56 Review of Systems Review of Systems Narrative: Fourteen system review was completed and pertinent findings are in the history of chief complaint. Exam Vital Signs (past 8 hours): - 01/24/22 10:49 01/24/22 10:50 01/24/22 11:00 Temperature 97.6 F Pulse Rate 61 62 Respiratory Rate 21 22 Blood Pressure 132/60 129/56 L Pulse Oximetry 98 95 96 01/24/22 11:15 01/24/22 11:30 01/24/22 11:45 Temperature Pulse Rate 60 60 59 L Respiratory Rate 22 22 23 Blood Pressure 124/59 L 125/58 L 114/58 L Pulse Oximetry 93 93 95 01/24/22 12:00 01/24/22 12:15 01/24/22 12:16 Temperature Pulse Rate 63 61 Respiratory Rate 22 22 Blood Pressure 112/56 L 112/55 L Pulse Oximetry 85 L 85 L 01/24/22 12:17 01/24/22 12:18 01/24/22 12:30 Temperature Pulse Rate 60 Respiratory Rate 19 Blood Pressure Pulse Oximetry 86 L 88 L 97 01/24/22 12:31 01/24/22 12:33 01/24/22 12:45 Temperature Pulse Rate 62 60 60 Respiratory Rate 24 25 H 21 Blood Pressure 123/57 L 123/57 L 107/51 L Pulse Oximetry 97 100 87 L 01/24/22 13:00 01/24/22 13:01 01/24/22 13:30 Temperature Pulse Rate 64 60 57 L Respiratory Rate 22 19 Blood Pressure 132/60 Pulse Oximetry 90 L 90 L 01/24/22 14:00 01/24/22 14:31 01/24/22 15:00 Temperature Pulse Rate 59 L 60 59 L Respiratory Rate Blood Pressure Pulse Oximetry 88 L 92 98 01/24/22 15:30 Temperature Pulse Rate 61 Respiratory Rate Blood Pressure Pulse Oximetry 93 Oxygen Delivery Method Nasal Cannula Oxygen Flow Rate 3 Narrative Exam Narrative: At the time of my examination the patient is no acute distress eating dinner quietly with O2 supplementation by nasal prongs. Patient is aware that he is feeling better with the oxygenation but said when he did have it he was not aware how bad he was feeling but did almost fall asleep a lot. HEENT: Pupils equal react to light extraocular movements normal. NECK: trachea midline, no JVD CV: regular rate and rhythm, no murmurs PULM: poor air movement bilaterally, occasional crackles. On O2 supplementation. ABD: soft, nontender, nondistended, no organomegaly, normal bowel sounds EXT: warm and well perfused with some trace of edema of the lower extremities. NEURO: No insight, oriented somewhat to person place and time. Moving all extremities Objective Labs Result Diagrams: 01/24/22 10:45 01/24/22 10:45 Labs: Laboratory Results - last 24 hr 01/24/22 01/24/22 01/24/22 10:45 10:45 10:45 WBC 5.3 RBC 3.90 L Hgb 11.3 L Hct 33.9 L MCV 86.9 MCH 29.0 MCHC 33.3 RDW 19.2 H Plt Count 188 Neut % (Auto) 59.2 Lymph % (Auto) 25.6 [place] % (Auto) 12.1 Eos % (Auto) 2.6 Baso % (Auto) 0.5 Neut # (Auto) 3100 Lymph # (Auto) 1400 [place] # (Auto) 600 Eos # (Auto) 100 Baso # (Auto) 0 PT 11.1 INR 1.0 ABG pH ABG pCO2 ABG pO2 ABG HCO3 ABG Total CO2 ABG O2 Saturation ABG Base Excess FiO2 Sodium 142 Potassium 4.6 Chloride 106 Carbon Dioxide 32 BUN 19 Creatinine 1.03 Estimated GFR > 60 BUN/Creatinine Ratio 18.4 Glucose 108 Lactate Calcium 8.6 Total Bilirubin 0.2 AST 24 ALT 13 Alkaline Phosphatase 75 Total Creatine Kinase CK-MB (CK-2) CK-MB (CK-2) Rel Index Troponin I NT-Pro-B Natriuret Pep 221 Total Protein 7.2 Albumin 3.8 Globulin 3.4 Albumin/Globulin Ratio 1.1 SARS-CoV-2 (PCR) 01/24/22 01/24/22 01/24/22 10:45 10:45 11:30 WBC RBC Hgb Hct MCV MCH MCHC RDW Plt Count Neut % (Auto) Lymph % (Auto) [place] % (Auto) Eos % (Auto) Baso % (Auto) Neut # (Auto) Lymph # (Auto) [place] # (Auto) Eos # (Auto) Baso # (Auto) PT INR ABG pH ABG pCO2 ABG pO2 ABG HCO3 ABG Total CO2 ABG O2 Saturation ABG Base Excess FiO2 Sodium Potassium Chloride Carbon Dioxide BUN Creatinine Estimated GFR BUN/Creatinine Ratio Glucose Lactate 0.9 Calcium Total Bilirubin AST ALT Alkaline Phosphatase Total Creatine Kinase 26 L CK-MB (CK-2) TNP CK-MB (CK-2) Rel Index TNP Troponin I < 0.012 NT-Pro-B Natriuret Pep Total Protein Albumin Globulin Albumin/Globulin Ratio SARS-CoV-2 (PCR) Positive H 01/24/22 01/24/22 12:47 13:20 WBC RBC Hgb Hct MCV MCH MCHC RDW Plt Count Neut % (Auto) Lymph % (Auto) [place] % (Auto) Eos % (Auto) Baso % (Auto) Neut # (Auto) Lymph # (Auto) [place] # (Auto) Eos # (Auto) Baso # (Auto) PT INR ABG pH 7.40 ABG pCO2 45.4 H ABG pO2 57 L ABG HCO3 28 H ABG Total CO2 30 ABG O2 Saturation 89 L ABG Base Excess 3.0 H FiO2 32 Sodium Potassium Chloride Carbon Dioxide BUN Creatinine Estimated GFR BUN/Creatinine Ratio Glucose Lactate Calcium Total Bilirubin AST ALT Alkaline Phosphatase Total Creatine Kinase CK-MB (CK-2) CK-MB (CK-2) Rel Index Troponin I NT-Pro-B Natriuret Pep Total Protein Albumin Globulin Albumin/Globulin Ratio SARS-CoV-2 (PCR) Positive H Assessment & Plan Assessment & Plan narrative: 1. COVID. Previous admission approximately a month ago for COVID. Maybe 2nd bout flare-up or could be that the patient has status deteriorated from his initial bout having not been supplemented with O2 as recommended. Treat with remdesivir. 2. Acute encephalopathy due to hypoxic respiratory failure provide O2 supplementation and set up for home. 3. Depression continue duloxetine 4. GERD continue protonix 5. Hypertension continue home medication 6. Dementia chronic, no active treatment 7. BPH on flomax CODE: DNR/DNI confirmed in ER. Proxy: Agnes Lagunas Time Spent With Patient Critical Care time: I spent a total of [] minutes of critical care time on this patient's care today; this time is exclusive of procedural time. Quality VTE Deep Vein Thrombosis/Pulmonary Embolism Present on Admission: No
[2022-01-24] MEDS: atenoloL 50 MG TABLET PO (20:13)
[2022-01-24] MEDS: SODIUM CHLORIDE 0.9% FLUSH 10 ML IV (20:13)
[2022-01-24] MEDS: QUETIAPINE 100 MG TABLET PO (20:13)
[2022-01-24] MEDS: PANTOPRAZOLE DR 40 MG TABLET PO (20:13)
[2022-01-24] MEDS: MELATONIN 3 MG TABLET PO (20:13)
[2022-01-24] MEDS: TAMSULOSIN 0.4 MG CAPSULE PO (20:13)
[2022-01-25 04:26] VITALS: BP 114/57; PULSE 68; RESP 20; TEMP 36.3; O2SAT 94
[2022-01-25 05:24] LABS: Add Manual Diff / Slide Review NO; Basophils Absolute Auto 0 /uL (0-100); Basophils Percent Auto 0.1 % (0-2); Eosinophils Absolute Auto 0 /uL (0-450); Hematocrit 38.4 % (41-53); Hemoglobin 12.3 g/dL (13.5-17.5); Lymphocytes Absolute Auto 600 /uL (1100-4500); Lymphocytes Percent Auto 8.9 % (25-40); Mean Corpuscular Hemoglobin 28.2 PG (26-34); Monocytes Absolute Auto 100 /uL (0-900); Monocytes Percent Auto 1.5 % (3-14); Neutrophils Absolute Auto 6100 /uL (1500-7000); Neutrophils Percent Auto 89.5 % (50-75); Platelet Count 208 X10^3/uL (150-400); Red Blood Cell Count 4.36 X10^6/uL (4.5-5.9); White Blood Cell Count 6.8 X10^3/uL (4.5-11.0)
[2022-01-25 05:32] LABS: Albumin 4.2 g/dL (3.5-5.0); BUN Creatinine Ratio 18.4 (6-22); Blood Urea Nitrogen 19 mg/dL (9-20); Calcium 9.1 mg/dL (8.4-10.2); Carbon Dioxide 29 mmol/L (22-32); Chloride 104 mmol/L (98-107); Estimated Glomerular Filt Rate > 60 mL/min (>60); Glucose 171 mg/dL (80-110); HEMOLYSIS < 15 (0-50); Phosphorous 3.5 mg/dL (2.3-3.7); Sodium 140 mmol/L (137-145)
[2022-01-25 05:41] LABS: Potassium 5.4 mmol/L (3.4-5.1)
[2022-01-25 08:00] VITALS: BP 123/63; PULSE 62; RESP 16; TEMP 37; O2SAT 96
--- NOTE | 2022-01-25 09:37 | P.DS_ITS ---
History of Present Illness History of Present Illness Chief complaint: Lethargic,low O2 Narrative: This is an 86-year-old male who came to the emergency department with hypoxia, patient is COVID positive, he has a COPD history, of sleep apnea, dementia, hypertension dyslipidemia, prior stroke, CHF and BPH.? Patient was admitted in December and discharged on December 28 for acute hypoxemic and hypercarbic respiratory fail ure COVID pneumonia and COPD exacerbation with encephalopathy likely worsened by CO2 retention. On ER presentation, patient's ABG today after being on nasal cannula in intermittently non-rebreather showed a pH of 7.402, pCO2 is 45 with a PO2 of 57 and bicarb of 28 patient showed hypoxic respiratory failure but no hypercapnic changes.? Chest x-ray was clear, patient denied chest pain or sensation of shortness of breath.? BNP was normal, he had no major electrolyte or renal function and his hemoglobin was appropriate 11.3.?Patient was very confused, patient's mentation improved after being on O2 for some time and he wanted to leave against medical advice but does not have a way to return home .?becuse of that he disrupted the dose of remdeivir and did not get full inital dose. After some discussion he is more agreeable to staying until home O2 can be set up, he does not wish to be intubated he does not wish CPR . ? Discharge Providers Provider Date of admission: 01/24/22 15:15 Discharge Date: 01/25/22 Primary care physician: Larry Roman MD Discharge provider: Ondina Costa MD Summary Hospital Course Discharge Diagnosis: Respiratory failure requirig O2 supplementation continuously. COVID. Hospital Course: See narrative above for presentation to the hospital. Patient is very selective about what care he gets. Unable to give a 2nd dose of remdesivir. Patient focused entirely on going home. Was promised that he could go home the day after admission if his O2 supplementation at home was set up and he is adherent to this. Once O2 supplementation was provided and IV fluids provided the patient stabilized in the hospital. Today, 1 day after admission patient's white blood count is normal, sodium is normal at 140, potassium is slightly elevated at 5.4 and the creatinine. Patient is eating well and is on O2 supplementation of 2 liters/minute eager to go home. Delivery of O2 to his house and home health reinstatement is ongoing prior to the patient being discharged today. Status at Discharge Cognitive/behavioral status at discharge: at baseline, confused Functional status at discharge: independent ambulation Overall status at discharge: patient is back to baseline Time Spent with Patient Time spent: Less than 30 minutes Exam Vital Signs (past 8 hours): - 01/25/22 04:26 01/25/22 08:00 Temperature 97.3 F L 98.6 F Pulse Rate 68 62 Respiratory Rate 20 16 Blood Pressure 114/57 L 123/63 Pulse Oximetry 94 96 Oxygen Delivery Method Room Air,Nasal Cannula Oxygen Flow Rate 2 Narrative Exam Narrative: Patient comfortable eating his breakfast with O2 supplementation interrupted during eating. Patient able to tolerate this. Appears in no distress. Objective Labs Result Diagrams: 01/25/22 04:50 01/25/22 04:50 Labs: Laboratory Results - last 24 hr 01/24/22 01/24/22 01/24/22 10:45 10:45 10:45 WBC 5.3 RBC 3.90 L Hgb 11.3 L Hct 33.9 L MCV 86.9 MCH 29.0 MCHC 33.3 RDW 19.2 H Plt Count 188 Neut % (Auto) 59.2 Lymph % (Auto) 25.6 [place] % (Auto) 12.1 Eos % (Auto) 2.6 Baso % (Auto) 0.5 Neut # (Auto) 3100 Lymph # (Auto) 1400 [place] # (Auto) 600 Eos # (Auto) 100 Baso # (Auto) 0 PT 11.1 INR 1.0 ABG pH ABG pCO2 ABG pO2 ABG HCO3 ABG Total CO2 ABG O2 Saturation ABG Base Excess FiO2 Sodium 142 Potassium 4.6 Chloride 106 Carbon Dioxide 32 BUN 19 Creatinine 1.03 Estimated GFR > 60 BUN/Creatinine Ratio 18.4 Glucose 108 Lactate Calcium 8.6 Phosphorus Total Bilirubin 0.2 AST 24 ALT 13 Alkaline Phosphatase 75 Total Creatine Kinase CK-MB (CK-2) CK-MB (CK-2) Rel Index Troponin I C-Reactive Protein NT-Pro-B Natriuret Pep 221 Total Protein 7.2 Albumin 3.8 Globulin 3.4 Albumin/Globulin Ratio 1.1 Nasal Screen MRSA (PCR) SARS-CoV-2 (PCR) 01/24/22 01/24/22 01/24/22 10:45 10:45 11:30 WBC RBC Hgb Hct MCV MCH MCHC RDW Plt Count Neut % (Auto) Lymph % (Auto) [place] % (Auto) Eos % (Auto) Baso % (Auto) Neut # (Auto) Lymph # (Auto) [place] # (Auto) Eos # (Auto) Baso # (Auto) PT INR ABG pH ABG pCO2 ABG pO2 ABG HCO3 ABG Total CO2 ABG O2 Saturation ABG Base Excess FiO2 Sodium Potassium Chloride Carbon Dioxide BUN Creatinine Estimated GFR BUN/Creatinine Ratio Glucose Lactate 0.9 Calcium Phosphorus Total Bilirubin AST ALT Alkaline Phosphatase Total Creatine Kinase 26 L CK-MB (CK-2) TNP CK-MB (CK-2) Rel Index TNP Troponin I < 0.012 C-Reactive Protein NT-Pro-B Natriuret Pep Total Protein Albumin Globulin Albumin/Globulin Ratio Nasal Screen MRSA (PCR) SARS-CoV-2 (PCR) Positive H 01/24/22 01/24/22 01/24/22 12:47 13:20 16:05 WBC RBC Hgb Hct MCV MCH MCHC RDW Plt Count Neut % (Auto) Lymph % (Auto) [place] % (Auto) Eos % (Auto) Baso % (Auto) Neut # (Auto) Lymph # (Auto) [place] # (Auto) Eos # (Auto) Baso # (Auto) PT INR ABG pH 7.40 ABG pCO2 45.4 H ABG pO2 57 L ABG HCO3 28 H ABG Total CO2 30 ABG O2 Saturation 89 L ABG Base Excess 3.0 H FiO2 32 Sodium Potassium Chloride Carbon Dioxide BUN Creatinine Estimated GFR BUN/Creatinine Ratio Glucose Lactate Calcium Phosphorus Total Bilirubin AST ALT Alkaline Phosphatase Total Creatine Kinase CK-MB (CK-2) CK-MB (CK-2) Rel Index Troponin I C-Reactive Protein NT-Pro-B Natriuret Pep Total Protein Albumin Globulin Albumin/Globulin Ratio Nasal Screen MRSA (PCR) Negative for mrsa SARS-CoV-2 (PCR) Positive H 01/25/22 01/25/22 04:50 04:50 WBC 6.8 RBC 4.36 L Hgb 12.3 L Hct 38.4 L MCV 88.0 MCH 28.2 MCHC 32.0 RDW 19.0 H Plt Count 208 Neut % (Auto) 89.5 H D Lymph % (Auto) 8.9 L [place] % (Auto) 1.5 L Eos % (Auto) 0.0 L Baso % (Auto) 0.1 Neut # (Auto) 6100 Lymph # (Auto) 600 L [place] # (Auto) 100 Eos # (Auto) 0 Baso # (Auto) 0 PT INR ABG pH ABG pCO2 ABG pO2 ABG HCO3 ABG Total CO2 ABG O2 Saturation ABG Base Excess FiO2 Sodium 140 Potassium 5.4 H Chloride 104 Carbon Dioxide 29 BUN 19 Creatinine 1.03 Estimated GFR > 60 BUN/Creatinine Ratio 18.4 Glucose 171 H Lactate Calcium 9.1 Phosphorus 3.5 Total Bilirubin AST ALT Alkaline Phosphatase Total Creatine Kinase CK-MB (CK-2) CK-MB (CK-2) Rel Index Troponin I C-Reactive Protein 1.0 NT-Pro-B Natriuret Pep Total Protein Albumin 4.2 Globulin Albumin/Globulin Ratio Nasal Screen MRSA (PCR) SARS-CoV-2 (PCR) PFSH Medical History Acquired hypothyroidism (09/16/16) Actinic keratosis Basal cell carcinoma 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) Colon polyps CVA (cerebral vascular accident) Depression (06/29/15) Erectile dysfunction (02/12/16) Essential hypertension (06/29/15) Gout Hemorrhoids Hyperlipemia Insomnia Obstructive sleep apnea Osteoarthritis Pneumonia due to COVID-19 virus Primary insomnia (09/16/16) 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 carcinoma Surgical History History of ectropion repair (10/2017) Hx of surgical procedure Family History Family/Other Unknown family medical history Social History household members: caregiver and none Smoking Status: Current every day smoker alcohol intake: current Discharge Plan Discharge Plan Transfer to: Home Health, Other Discharge orders & Medications Discharge Orders: Discharge (Order); Ordered 01/25/22 Ordered By: Ondina Costa Prescriptions: Continued pantoprazole 40 mg tablet,delayed release (DR/EC) 40 mg PO BID Qty: 180 3RF Label Comments: 40 mg PO BID tamsulosin 0.4 mg capsule 0.4 mg PO BEDTIME Qty: 90 3RF duloxetine 20 mg capsule,delayed release(DR/EC) 20 mg PO DAILY Qty: 90 1RF atenolol 50 mg tablet 50 mg PO BID Qty: 180 1RF allopurinol 100 mg tablet 100 mg PO DAILY Qty: 90 1RF potassium chloride 20 mEq tablet extended release 20 meq PO DAILY 30 Days Qty: 30 0RF quetiapine 100 mg tablet 100 mg PO BID Qty: 60 5RF cholecalciferol (vitamin D3) [Vitamin D3] 50 mcg (2,000 unit) Capsule 2,000 unit PO DAILY 0RF amlodipine 10 mg tablet 10 mg PO DAILY 0RF Rx Instructions: TAKE 1 TABLET BY MOUTH EVERY DAY Saccharomyces boulardii [Florastor] 250 mg Capsule 250 mg PO DAILY 0RF melatonin 5 mg Tablet 5 mg PO BEDTIME 0RF acetaminophen 325 mg tablet 650 mg PO Q6H PRN (Reason: pain) Qty: 1 0RF Follow up/Referrals: Larry Roman MD [Primary Care Provider] - Diet/Activity/Treatments Food texture: Regular Oxygen: O2 supplementation at home Discharge Data Primary Care Provider: Larry Roman Quality VTE Deep Vein Thrombosis/Pulmonary Embolism Present on Admission: No
[2022-01-25] MEDS: QUETIAPINE 100 MG TABLET PO (09:46)
[2022-01-25] MEDS: DULOXETINE 20 MG CAPSULE PO (09:46)
[2022-01-25] MEDS: CHOLECALCIFEROL (VITAMIN D3) 1,000 UNIT TABLET 2000 UNIT PO (09:47)
[2022-01-25] MEDS: atenoloL 50 MG TABLET PO (09:47)
[2022-01-25] MEDS: LACTOBACILLUS ACIDOPHILUS TABLET 1 EACH PO (09:47)
[2022-01-25] MEDS: AMLODIPINE 5 MG TABLET 10 MG PO (09:47)
[2022-01-25] MEDS: PANTOPRAZOLE DR 40 MG TABLET PO (09:47)
[2022-01-25] MEDS: allopurinoL 100 MG TABLET PO (09:48)
--- NOTE | 2022-01-25 11:42 | PC.NURSE ---
Rt provided education regarding home O2 use and states that pt provided teach back and return demonstration. This RN provided dc packet and educational materials to pt. Pt states that he has visual deficits and does not currently have his eye glasses with him. Provided verbal teaching with add'l instruction in large hand written print regarding f/u appt and medications. Pt uses blister packaged medications provided by his pharmacy. Instructed pt to skip his morning medications today (01/24/22) as they have already been given. I reinforced education re: home O2 use and the importance of wearing it continually and consistently. Pt states he is unwilling to quit smoking and also verbalizes understanding of the dangers of smoking around his O2. He states his plan is to remove his O2, step outside, smoke, and then return inside and place O2 back on. Provided smoking cessation education to pt and also explained that his lung function will likely not improve if he continues to smoke and remove his O2 which he now needs on a continuous basis. Further explained that these behaviors can very likely lead to lack of oxygen, increased confusion, and difficulty breathing and will likely prompt his family to call and ambulance and bring him back to the hospital. Pt has related to me that he does not want to be brought back to the hospital as he does not like it here and he would really just like to be left alone at home. Encouraged pt to have this discussion with is family to let them know his wishes and possibly explore alternative avenues such as palliative care. He is planning to have this conversation with his daughter. AIRCRAFT MACHINIST set up transportation home via taxi. Pt is agreeable to this. Pt transferred himself independently from chair to w/c and was given all belongings and paperwork. Portable O2 via NC in place at 2LPM sent with pt upon dc. CONTROL SYSTEM MANAGER escorted pt to exit and pt was in no distress at time of discharge. Spoke with daughter, Nessa, via phone. Updated nessa that pt was provided taxi transportation. Nessa states that she is currently at pt's house and O2 is being set up. Reviewed dc education, f/u appt, medications with Nessa. Told her that written info has been sent with pt as well. Provided update re: pt's plans on removing O2 to smoke. Education given regarding pt's need for continuous O2 and how continuing to provide him with tobacco products can be detrimental to his lung function. She verbalizes understanding of this. I encouraged her to discuss with him what his wishes are going forward in terms of medical treatment as he is adamant that he does not want to return to the hospital. Recommended discussing palliative options with Dr. Roman at f/u appt on 01/28 at 0930. She verbalizes understanding.
--- NOTE | 2022-01-26 15:00 | CM.DPNOTE ---
DC Note Late Entry Patient discharged home yesterday 01.25.22 after initially presenting SOB w/low Sats, C19+ from initial infection in December; patient familiar to this ALUMINUM SIDING APPLICATOR and TA Mercado from prior hospitalization. See TA Mercado's note dated 01.25.22 for detailed information Patient demanding to return home yesterday morning, placed call to dtr Nessa, who stated she has COVID and I won't be able to come down there to take him home or help (Similar to previous conversations with this dtr) Meanwhile, patient continued to say he was going home. According to Dtr Nessa - she had already arranged for [employer] to deliver oxygen yesterday to patient's doorstep (order through Dr Roman last week) dtr Nsesa remarked numerous times that I'm afraid he's going to blow himself up referring to patient's insistence on smoking cigarettes. Dtawais Szymanski also admits to supplying said cigarettes Dtr Nessa declined transporting patient home yesterday and was unable to secure a friend or neighbor to transport so Inevitably, RN/ALUMINUM SIDING APPLICATOR was able to secure [employer] cab via funded taxi voucher in order to help get patient home with O2 delivery from [employer] Plan: DC home yesterday w/home O2, patient has [facility] JW
== END 2022-01-25 11:40 | disposition home or self-care (01) ==
LOC: ED 12:56 → ICU 16:10 → AC 01-28 09:48
PROVIDERS: Admitting Provider Neuromusculoskeletal Medicine, Sports Medicine; Emergency Provider Emergency Medicine; Family Provider Student in an Organized Health Care Education/Training Program; PCP Student in an Organized Health Care Education/Training Program; Referring Provider Emergency Medicine; Visit Provider Neuromusculoskeletal Medicine, Sports Medicine
DX: U07.1 COVID-19 (principal); J96.01 Acute respiratory failure with hypoxia; G93.49 Other encephalopathy; G47.33 Obstructive sleep apnea (adult) (pediatric); J44.9 Chronic obstructive pulmonary disease, unspecified; N40.0 Benign prostatic hyperplasia without lower urinary tract symptoms; I11.0 Hypertensive heart disease with heart failure; I50.9 Heart failure, unspecified; K21.9 Gastro-esophageal reflux disease without esophagitis; E78.5 Hyperlipidemia, unspecified; Z86.73 Personal history of transient ischemic attack (TIA), and cerebral infarction without residual deficits; F03.90 Unspecified dementia, unspecified severity, without behavioral disturbance, psychotic disturbance, mood disturbance, and anxiety; F32.A Depression, unspecified
CPT/HCPCS: 36415; 36600; 71045; 80053; 80069; 82550; 82805; 83605; 83880; 84484; 85025; 85610; 86140; 87635; 87797; 93005; 96365; 96375; 99285; C9803; G0378; J1100

== ENCOUNTER 2022-02-02 10:22 | Emergency (ER) | payer OTHER, SELFPAY ==
[2021-12-25 08:23] VITALS: PULSE 60; RESP 23; O2SAT 99
[2022-01-24 16:36] VITALS: BMI 33.6
[2022-02-02] VITALS (9 sets, daily range): BP systolic 123–139; BP diastolic 60–63; PULSE 65–107; RESP 18; TEMP 36.6; O2SAT 92–100; BMI 36.2
--- NOTE | 2022-02-02 10:35 | ED.EYEPROB ---
HPI - Eye Problem General Chief complaint: Eye Problems Stated complaint: Eye drainage,jaw pain,COVID 9 days ago. Time Seen by Provider: 02/02/22 10:34 Source: patient Mode of arrival: EMS Limitations: no limitations History of Present Illness HPI Narrative: This is a 86-year-old male history of obstructive sleep apnea, dementia, hypertension, dyslipidemia, stroke, GERD, COPD, CHF BPH. Comes emergency department with complaint of left eye irritation pain and left jaw pain. Patient states it started last night. He states that the left eye has been irritated but not really draining. He states his far vision is may be slightly blurry but no major visual changes. He has not appreciated any fevers. Patient states he also noted pain and indicates the left temporal area started causing discomfort last night. He was not having any pain or vision issues before last night. Patient denies any prior eye issues he is wearing glasses but states no contacts, no prior eye surgeries, no interventions in his eyes in the past. Does not recall any trauma or. He is significant for having a COVID diagnosis and January 24. Patient was seen improved on O2. He disrupted the dose of remdesivir did get the initial full dose but patient mentation improved on O2. Related Data Home Medications Medication Instructions Recorded Confirmed cholecalciferol (vitamin D3) 50 2,000 unit PO DAILY 02/13/21 01/24/22 mcg (2,000 unit) capsule (Vitamin D3) Saccharomyces boulardii 250 mg 250 mg PO DAILY 11/02/21 01/24/22 capsule (Florastor) amlodipine 10 mg tablet 10 mg PO DAILY 11/02/21 01/24/22 melatonin 5 mg tablet 5 mg PO BEDTIME 11/02/21 01/24/22 Previous Rx's Medication Instructions Recorded pantoprazole 40 mg tablet,delayed 40 mg PO BID #180 tabs 08/28/21 release allopurinol 100 mg tablet 100 mg PO DAILY #90 tabs 10/23/21 atenolol 50 mg tablet 50 mg PO BID #180 tabs 10/23/21 duloxetine 20 mg capsule,delayed 20 mg PO DAILY #90 caps 10/23/21 release tamsulosin 0.4 mg capsule 0.4 mg PO BEDTIME #90 caps 10/23/21 acetaminophen 325 mg tablet 650 mg PO Q6H PRN pain #1 tab 05/06/22 quetiapine 100 mg tablet 100 mg PO BID #60 tabs 01/07/22 oxycodone-acetaminophen 5 mg-325 1 tab PO QID PRN pain #14 tabs 02/02/22 mg tablet (Percocet) prednisone 20 mg tablet 80 mg PO DAILY 30 days #120 tabs 02/02/22 Allergies Allergy/AdvReac Type Severity Reaction Status Date / Time No Known Drug Allergies Allergy Verified 01/24/22 10:56 Review of Systems Review of Systems ROS Unobtainable: All systems reviewed & are unremarkable except as noted in HPI and below 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 HEENT: Atraumatic, pupils are equal round reactive to light, extraocular movements are intact, nares are clear, TMs are clear with no fluid, there is no conjunctival pallor. Throat is clear without any exudates, erythema, tonsillar enlargement or uvular deviation, patient is tender over the left temporal region. Visual acuity: right [20/40], left [20/50] without correction. IOP: Right 13 mm Hg, Left 14 mm Hg General: no globe trauma Eyelids: normal inspection, eyelids everted for exam on bilaterally. Conjunctiva/Sclera: normal inspection, injected on the left. Corneas: normal inspection, examined with fluroscein on the left is injected has uptake of fluorescein particularly at 6:00 a.m. position but no lacerations. EOM: intact, no palsy/entrapment Pupils: PERRL, normal accomadation, pupil normal Anterior Chambers: normal inspection, no hypema Posterior: normal fundoscopic on bilaterally HEART: Regular rate and rhythm without murmur, clicks, rubs. No carotid bruits, pulses are equal in upper and lower extremities LUNGS:Lungs clear to auscultation, no wheezes, rales, crackles, chest moves symmetrically ABD:bowel sounds normal, soft, non-tender, no guarding, rebound, rigidity, no masses noted, no hepatosplenomegaly MSCL: Non-tender, no muscle atrophy, muscles strength 5/5 upper and lower extremities, full range of motion Initial Vital Signs Initial Vital Signs: Vital Signs Pulse Rate 72 02/02/22 10:26 Pulse Oximetry 92 02/02/22 10:26 Course Orders Ordered: ED Orders 02/02/22 11:02 CBC Auto Diff [Complete Blood Count AUTO DIFF] Stat CMP [Comprehensive Metabolic Panel] Stat CRP [C-Reactive Protein Quant] Stat ESR [Erythrocyte Sedimentation Rate] Stat Discontinued Medications Fluorescein Sodium (Fluorescein 1 Mg Strip) 1 mg EYE-LEFT NOW ONE Stop: 02/02/22 10:35 Last Admin: 02/02/22 10:50 Dose: 1 mg Documented By: CHRISTINA Oxycodone/Acetaminophen (Oxycodone/Acetaminophen 5/325 Tablet) 2 tab PO NOW ONE Stop: 02/02/22 11:14 Last Admin: 02/02/22 11:37 Dose: 2 tab Documented By: CHRISTINA Prednisone (Prednisone 20 Mg Tablet) 80 mg PO NOW ONE Stop: 02/02/22 12:03 Last Admin: 02/02/22 12:20 Dose: 80 mg Documented By: CHRISTINA(2) Proparacaine HCl (Proparacaine 0.5% Ophth Holly) 1 drops EYE-BOTH NOW ONE Stop: 02/02/22 10:35 Last Admin: 02/02/22 10:50 Dose: 1 drop Documented By: CHRISTINA Reevaluation(s) Reevaluation #1: Recheck patient pain improved with oral pain medication. Updated on findings. Patient also asked me to talk with his daughter Nessa. Reevaluation #2: Spoke with daughter Nessa. Discussed my suspicion for temporal arteritis. Patient will need follow-up with ophthalmology in general surgery. She lives locally and can help with this. Plan is start steroids 1st dose given in the ED, prescription for pain medication and return precautions. Consultations Consultation #1: Dr. Santana, general surgery-can see patient outpatient for temporal artery biopsy. Patient call for an appointment. Vital Signs Vital signs: Vital Signs - 8 hr 02/02/22 10:28 02/02/22 10:26 02/02/22 10:27 Temperature 98 F Pulse Rate 72 72 Respiratory Rate 18 Blood Pressure 132/60 132/60 Pulse Oximetry 93 92 Oxygen Delivery Method Room Air 02/02/22 10:27 02/02/22 10:30 02/02/22 10:30 Temperature Pulse Rate 70 107 H Respiratory Rate Blood Pressure 123/60 Pulse Oximetry 93 Oxygen Delivery Method 02/02/22 11:00 02/02/22 11:00 02/02/22 11:30 Temperature Pulse Rate 66 67 Respiratory Rate Blood Pressure 139/63 Pulse Oximetry 94 96 Oxygen Delivery Method 02/02/22 12:00 02/02/22 12:00 02/02/22 12:30 Temperature Pulse Rate 65 Respiratory Rate Blood Pressure 134/60 137/63 Pulse Oximetry 100 Oxygen Delivery Method 02/02/22 12:30 02/02/22 13:00 02/02/22 13:00 Temperature Pulse Rate 69 68 Respiratory Rate Blood Pressure 139/63 Pulse Oximetry 95 95 Oxygen Delivery Method MDM - Eye Problem Lab Data Result diagrams: 02/02/22 11:02 02/02/22 11:02 Labs: Lab Results 02/02/22 02/02/22 Range/Units 11:02 11:02 WBC 7.3 (4.5-11.0) X10^3/uL RBC 3.75 L (4.5-5.9) X10^6/uL Hgb 10.7 L (13.5-17.5) g/dL Hct 32.2 L (41-53) % MCV 85.9 (80-100) fL MCH 28.5 (26-34) PG MCHC 33.2 (30-36) % RDW 18.1 H (11.6-14.8) % Plt Count 179 (150-400) X10^3/uL Neut % (Auto) 74.9 (50-75) % Lymph % (Auto) 12.2 L (25-40) % [place] % (Auto) 10.7 (3-14) % Eos % (Auto) 1.7 L (2-4) % Baso % (Auto) 0.5 (0-2) % Neut # (Auto) 5400 (1802-2119) /uL Lymph # (Auto) 900 L (6650-3345) /uL [place] # (Auto) 800 (0-900) /uL Eos # (Auto) 100 (0-450) /uL Baso # (Auto) 0 (0-100) /uL ESR 28 H (0-15) MM/HR Sodium 140 (137-145) mmol/L Potassium 4.4 (3.4-5.1) mmol/L Chloride 105 (98-107) mmol/L Carbon Dioxide 30 (22-32) mmol/L BUN 15 (9-20) mg/dL Creatinine 1.06 (0.66-1.25) mg/dL Estimated GFR > 60 (>60) mL/min BUN/Creatinine Ratio 14.2 (6-22) Glucose 109 (80-110) mg/dL Calcium 8.8 (8.4-10.2) mg/dL Total Bilirubin 0.3 (0.2-1.3) mg/dL AST 20 (17-59) IU/L ALT 14 (<50) IU/L Alkaline Phosphatase 71 (38-126) U/L C-Reactive Protein 1.8 H (<1.0) mg/dL Total Protein 7.0 (6.3-8.2) g/dL Albumin 3.7 (3.5-5.0) g/dL Globulin 3.3 (1.7-4.1) g/dL Albumin/Globulin Ratio 1.1 (1.0-2.8) MDM Narrative Medical decision making narrative: This is an 86-year-old male with increasing pain, temporal pain in the left eye and left congregation region with recent COVID infection patient was hospitalized his hypoxic it but has improved. He denies symptoms currently. His only complaint is his left eye he states there has not really been any discharge. Numbness appreciated on exam, he is injected, visual acuities 20 50 in comparison to 20 40 in the opposite side proparaciane, this gives minimal pain improvement. Pressures are normal bilaterally with nina-pen, patient has some injection and mild uptake with fluorescein in the conjunctiva but no obvious lacerations. Patient ESR and CRP are elevated concerning for possible temporal arteritis. Daughter notes that on MRI he had some sort of mass this is found is on the right and was consistent with possible acoustic neuroma or schwannoma but is on the right and not the left side which is affected today. Case discussed with general surgery who can follow up patient for temporal artery biopsy. Patient referred to local ophthalmology. Discharge Plan Departure Patient Disposition: Home Clinical Impression: Temporal arteritis Activity Restrictions/Additional Instructions: Follow up with general surgery for confirmatory testing and biopsy of your temporal artery. Please call to set up an appointment. Also included is follow-up with ophthalmology, they will be needed to help manage your steroids as these will have to be tapered over time. Take steroids daily at 80 mg x 4 weeks and then you will need to have them tapered by your physicians. You may take Tylenol up to a 1000 mg every 6 hours and 1-2 tablets of narcotic pain medications every 6 hours as needed. This medication can make you sleepy do not drive, perform hazardous activities or make any major decisions while taking it. This medication will make you constipated please take a stool softener once to twice daily until stools are soft and regular. Prescription sent to [facility] in [place]. Please return for fevers, rapidly worsening decrease in vision, increasing pain, swelling, new drainage or other new or concerning symptoms. Prescriptions: New prednisone 20 mg tablet 80 mg PO DAILY 30 Days Qty: 120 0RF oxycodone-acetaminophen [Percocet] 5-325 mg tablet 1 tab PO QID PRN (Reason: pain) Qty: 14 0RF No Action pantoprazole 40 mg tablet,delayed release (DR/EC) 40 mg PO BID Qty: 180 3RF Label Comments: 40 mg PO BID tamsulosin 0.4 mg capsule 0.4 mg PO BEDTIME Qty: 90 3RF duloxetine 20 mg capsule,delayed release(DR/EC) 20 mg PO DAILY Qty: 90 1RF atenolol 50 mg tablet 50 mg PO BID Qty: 180 1RF allopurinol 100 mg tablet 100 mg PO DAILY Qty: 90 1RF quetiapine 100 mg tablet 100 mg PO BID Qty: 60 5RF cholecalciferol (vitamin D3) [Vitamin D3] 50 mcg (2,000 unit) Capsule 2,000 unit PO DAILY amlodipine 10 mg tablet 10 mg PO DAILY Rx Instructions: TAKE 1 TABLET BY MOUTH EVERY DAY Saccharomyces boulardii [Florastor] 250 mg Capsule 250 mg PO DAILY melatonin 5 mg Tablet 5 mg PO BEDTIME acetaminophen 325 mg tablet 650 mg PO Q6H PRN (Reason: pain) Qty: 1 0RF Referrals: Larry Roman MD [Primary Care Provider] - Gordon Santana MD [Physician] - Naga Fisher MD [Physician] - Visit Report Forms: Patient Portal/API
[2022-02-02] MEDS: FLUORESCEIN 1 MG STRIP EYE-LEFT (10:50)
[2022-02-02] MEDS: PROPARACAINE 0.5% OPHTH SOL 1 DROPS EYE-BOTH (10:50)
[2022-02-02 11:19] LABS: Add Manual Diff / Slide Review NO; Basophils Absolute Auto 0 /uL (0-100); Basophils Percent Auto 0.5 % (0-2); Eosinophils Absolute Auto 100 /uL (0-450); Eosinophils Percent Auto 1.7 % (2-4); Hematocrit 32.2 % (41-53); Hemoglobin 10.7 g/dL (13.5-17.5); Lymphocytes Absolute Auto 900 /uL (1100-4500); Lymphocytes Percent Auto 12.2 % (25-40); Mean Corpuscular HGB Conc 33.2 % (30-36); Mean Corpuscular Hemoglobin 28.5 PG (26-34); Mean Corpuscular Volume 85.9 fL (80-100); Monocytes Absolute Auto 800 /uL (0-900); Monocytes Percent Auto 10.7 % (3-14); Neutrophils Absolute Auto 5400 /uL (1500-7000); Neutrophils Percent Auto 74.9 % (50-75); Platelet Count 179 X10^3/uL (150-400); Red Blood Cell Count 3.75 X10^6/uL (4.5-5.9); Red Cell Distribution Width 18.1 % (11.6-14.8); White Blood Cell Count 7.3 X10^3/uL (4.5-11.0)
[2022-02-02 11:28] LABS: Alanine Aminotransferase 14 IU/L (<50); Albumin 3.7 g/dL (3.5-5.0); Albumin Globulin Ratio 1.1 (1.0-2.8); Alkaline Phosphatase 71 U/L (38-126); Aspartate Aminotransferase 20 IU/L (17-59); BUN Creatinine Ratio 14.2 (6-22); Bilirubin Total 0.3 mg/dL (0.2-1.3); Blood Urea Nitrogen 15 mg/dL (9-20); C-Reactive Protein Quant 1.8 mg/dL (<1.0); Calcium 8.8 mg/dL (8.4-10.2); Carbon Dioxide 30 mmol/L (22-32); Chloride 105 mmol/L (98-107); Estimated Glomerular Filt Rate > 60 mL/min (>60); Globulin 3.3 g/dL (1.7-4.1); Glucose 109 mg/dL (80-110); HEMOLYSIS < 15 (0-50); Potassium 4.4 mmol/L (3.4-5.1); Sodium 140 mmol/L (137-145)
[2022-02-02] MEDS: OXYCODONE/ACETAMINOPHEN 5/325 TABLET 2 TAB PO (11:37)
[2022-02-02 11:43] LABS: Erythrocyte Sedimentation Rate 28 MM/HR (0-15)
[2022-02-02] MEDS: predniSONE 20 MG TABLET 80 MG PO (12:20)
== END 2022-02-02 13:10 | disposition home or self-care (01) ==
PROVIDERS: Emergency Provider Emergency Medicine; Family Provider Student in an Organized Health Care Education/Training Program; PCP Student in an Organized Health Care Education/Training Program
DX: M31.6 Other giant cell arteritis (principal)
CPT/HCPCS: 36415; 80053; 85025; 85651; 86140; 99283

== ENCOUNTER 2022-02-03 17:33 | Emergency (ER) | payer OTHER, SELFPAY ==
[2021-12-25 08:23] VITALS: PULSE 60; RESP 23; O2SAT 99
[2022-01-24 16:36] VITALS: BMI 33.6
[2022-02-03 17:33] VITALS: BP 179/77; PULSE 80; RESP 18; TEMP 36.6; O2SAT 95
--- NOTE | 2022-02-03 18:11 | ED_ITS ---
HPI - General Adult General Chief complaint: Eye Problems Stated complaint: Lt. eye pain Time Seen by Provider: 02/03/22 18:08 Source: patient and EMS Mode of arrival: EMS History of Present Illness HPI narrative: 86-year-old gentleman with a history of hypertension, prior stroke, congestive heart failure, COPD, dementia and sleep apnea who comes in after being seen yesterday in the emergency department complaining of his left eye continuing to be irritated. He states that it feels dry. He is having some tenderness along his temporal area no jaw pain no fevers. Full workup was done yesterday by Dr. Gerardo with minimal visual change, normal pressures, no abnormalities seen on flow lamp exam. He did have an elevated sed rate and there was a concern for temporal arteritis. He was started on prednisone any states he took the 1st dose on an empty stomach and promptly vomited so refuses to take any more. Today he continues to complain simply that it is dry. No fevers, cough, headaches, skin changes, jaw pain, ear pain. Related Data Home Medications Medication Instructions Recorded Confirmed cholecalciferol (vitamin D3) 50 2,000 unit PO DAILY 02/13/21 01/24/22 mcg (2,000 unit) capsule (Vitamin D3) Saccharomyces boulardii 250 mg 250 mg PO DAILY 11/02/21 01/24/22 capsule (Florastor) amlodipine 10 mg tablet 10 mg PO DAILY 11/02/21 01/24/22 melatonin 5 mg tablet 5 mg PO BEDTIME 11/02/21 01/24/22 Previous Rx's Medication Instructions Recorded pantoprazole 40 mg tablet,delayed 40 mg PO BID #180 tabs 08/28/21 release allopurinol 100 mg tablet 100 mg PO DAILY #90 tabs 10/23/21 atenolol 50 mg tablet 50 mg PO BID #180 tabs 10/23/21 duloxetine 20 mg capsule,delayed 20 mg PO DAILY #90 caps 10/23/21 release tamsulosin 0.4 mg capsule 0.4 mg PO BEDTIME #90 caps 10/23/21 acetaminophen 325 mg tablet 650 mg PO Q6H PRN pain #1 tab 12/28/21 quetiapine 100 mg tablet 100 mg PO BID #60 tabs 01/07/22 oxycodone-acetaminophen 5 mg-325 1 tab PO QID PRN pain #14 tabs 02/02/22 mg tablet (Percocet) prednisone 20 mg tablet 80 mg PO DAILY 30 days #120 tabs 02/02/22 Allergies Allergy/AdvReac Type Severity Reaction Status Date / Time No Known Drug Allergies Allergy Verified 01/24/22 10:56 Review of Systems Review of Systems Narrative: Remainder of complete review of systems is otherwise unremarkable except for that included in the HPI. 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 Surgical History History of ectropion repair (10/2017) Hx of surgical procedure Family History Family/Other Unknown family medical history Social History household members: caregiver and none Smoking Status: Current every day smoker alcohol intake: current Smoking Status: Current every day smoker tobacco type: cigarettes alcohol intake frequency: 0-2 drinks per day Alcohol type: hard liquor Substance Use Type: does not use Exam Initial Vital Signs Initial Vital Signs: Vital Signs Temperature 98 F 02/03/22 17:33 Pulse Rate 80 02/03/22 17:33 Respiratory Rate 18 02/03/22 17:33 Blood Pressure 179/77 H 02/03/22 17:33 Pulse Oximetry 95 02/03/22 17:33 Oxygen Delivery Method 02/03/22 17:33 General: Alert appropriate in no acute distress HEENT: Left eye has some mild scleral injection and mild conjunctival erythema. There is some mild tearing but no purulence at discharge. He describes no visual changes. He states he did not look at his eye yesterday and he did not look today so he does not know if it has gotten any worse. He is tender along the left temporal area. There are no skin changes to suggest zoster prodrome Respiratory: Able to speak in full sentences, no obvious respiratory distress Skin: No obvious rashes, warm and dry Neurologic: Grossly intact no obvious asymmetries or abnormalities Psych: appropriate insight and affect, cooperative Course Orders Ordered: Discontinued Medications Erythromycin (Erythromycin Ophth 1 Gm Oint) 1 applic EYE-LEFT NOW ONE Stop: 02/03/22 19:10 Ondansetron HCl (Ondansetron 4 Mg Odt Prepack) 1 bottle MISC SEEINSTR ONE Stop: 02/03/22 19:10 Vital Signs Vital signs: Vital Signs - 8 hr 02/03/22 17:33 Temperature 98 F Pulse Rate 80 Respiratory Rate 18 Blood Pressure 179/77 H Pulse Oximetry 95 Oxygen Delivery Method Room Air Medical Decision Making MDM Narrative Medical decision making narrative: 86-year-old gentleman with irritated left eye and high likelihood of temporal arteritis. He continues to live independently and has only moderate insight into instructions given yesterday. The general surgery office was planning to call him to discuss possibility of a temporal artery biopsy. At this time he is unwilling to continue prednisone and likely would need quite a bit of negotiation as well as a bit of food and Zofran prior to the next dose. In the meantime will have him try erythromycin ointment to the eye 3 times a day for the next 5 days to help with the dry feeling more than anything else. Will ask him to follow-up with his primary care doctor and surgical consult remains pending. He is safe for home discharge Discharge Plan Departure Patient Disposition: Home Clinical Impression: TA (temporal arteritis), Irritation of left eye Activity Restrictions/Additional Instructions: Thank you for coming in today You had a very thorough exam yesterday and does not appear that anything has changed from that time. We are concerned that you have a process called temporal arteritis. This is where there is swelling in the blood vessels to and around your eye. That is why your tender along your episcopal. The treatment for this is high dose prednisone and the risk of not treating this appropriately is going blind in that eye. You are going to need to follow-up with a number of other doctors to get this fully sorted out 1. general surgeon to consider doing a temporal artery biopsy to confirm the diagnosis. Please call [facility] at [phone] to schedule an appointment 2. Eye doctor to further evaluate and see if there are diagnoses that we did not find in the emergency department. Please call [facility] at [phone] 3. Your primary care doctor. They will need to help manage all of this. Please consider trying taking the prednisone again. If the consequences of not taking the medication is going blind it may be worth some minor nausea. I will send you home with some nausea medicine today. I would suggest having a small meal, taking the nausea medicine and then about half an hour later taking the prednisone and seeing if you tolerate it better. Finally, I have given you some eye ointment that you can gently placed in the eye 3 times a day to help with the dry irritation feelling. Prescriptions: No Action pantoprazole 40 mg tablet,delayed release (DR/EC) 40 mg PO BID Qty: 180 3RF Label Comments: 40 mg PO BID tamsulosin 0.4 mg capsule 0.4 mg PO BEDTIME Qty: 90 3RF duloxetine 20 mg capsule,delayed release(DR/EC) 20 mg PO DAILY Qty: 90 1RF atenolol 50 mg tablet 50 mg PO BID Qty: 180 1RF allopurinol 100 mg tablet 100 mg PO DAILY Qty: 90 1RF quetiapine 100 mg tablet 100 mg PO BID Qty: 60 5RF cholecalciferol (vitamin D3) [Vitamin D3] 50 mcg (2,000 unit) Capsule 2,000 unit PO DAILY amlodipine 10 mg tablet 10 mg PO DAILY Rx Instructions: TAKE 1 TABLET BY MOUTH EVERY DAY Saccharomyces boulardii [Florastor] 250 mg Capsule 250 mg PO DAILY melatonin 5 mg Tablet 5 mg PO BEDTIME acetaminophen 325 mg tablet 650 mg PO Q6H PRN (Reason: pain) Qty: 1 0RF prednisone 20 mg tablet 80 mg PO DAILY 30 Days Qty: 120 0RF oxycodone-acetaminophen [Percocet] 5-325 mg tablet 1 tab PO QID PRN (Reason: pain) Qty: 14 0RF Referrals: Larry Roman MD [Primary Care Provider] -
[2022-02-03] MEDS: ERYTHROMYCIN OPHTH 1 GM OINT 1 APPLIC EYE-LEFT (19:15)
[2022-02-03] MEDS: ONDANSETRON 4 MG ODT PREPACK 1 BOTTLE MISC (19:16)
[2022-02-03 19:34] VITALS: BP 162/70; PULSE 85; O2SAT 94
--- NOTE | 2022-02-03 20:07 | PC.NURSE ---
discharge instructions to both patient and daughter regarding medications. prednisone dosing is 80 mg once daily for 4 weeks. daughter had thought it was 4 x daily and explained dosing is only once daily. and instructions repeated back by daughter to rn pre pack for zofrand and rx to [facility] for zofran for nausea. 1 as needed every 4-6 hours. take 20 mins before meds to help prevent nausea from other medications take pain medications with food and after taking zofran. use zofran for nausea so you tolerate taking the prednisone. discussed importance of taking and completing prednisone and risks of not taking it including blindness. re reviewed temporal arteritis instructions and printed out dc instructions from 02/02/22 and reviewed those as well attaching to todays dc instructions. pt already has pcp appt thurs important to keep this appointment call [facility] at provided number to follow and dx temporal arteritis including possible need for biopsy. dr ruelas was surgeon at number recommended they are already aware please call friday for appointment call provided number for dr [facility] for repeat eye exam and follow up. daughter leroy segovia ph # [phone] pt lives alone but daughter lives here in same town nearby. daughter to help ensure follow up appointments are done and meds are being taken
== END 2022-02-03 20:14 | disposition home or self-care (01) ==
PROVIDERS: Emergency Provider Emergency Medicine; Family Provider Student in an Organized Health Care Education/Training Program; PCP Student in an Organized Health Care Education/Training Program
DX: M31.6 Other giant cell arteritis (principal); H57.89 Other specified disorders of eye and adnexa
CPT/HCPCS: 99282

== ENCOUNTER → 2022-02-07 10:52 | Outpatient (CLI) | payer OTHER, SELFPAY ==
[2022-02-06 11:19] VITALS: PULSE 60; RESP 23; O2SAT 99; BMI 33.6
[2022-02-07 11:53] LABS: COVID19 -Nasal RAPID Negative (Negative)
== END ==
PROVIDERS: Family Provider Student in an Organized Health Care Education/Training Program; PCP Student in an Organized Health Care Education/Training Program; Visit Provider Surgery
DX: Z01.812 Encounter for preprocedural laboratory examination (principal); Z20.822 Contact with and (suspected) exposure to COVID-19
CPT/HCPCS: 87635

== ENCOUNTER 2022-02-08 11:42 | Emergency (ER) | payer OTHER, SELFPAY ==
[2022-02-06 11:19] VITALS: PULSE 60; RESP 23; O2SAT 99; BMI 33.6
[2022-02-08] VITALS (17 sets, daily range): BP systolic 125–157; BP diastolic 58–69; PULSE 65–75; RESP 23–29; TEMP 38.3; O2SAT 88–100
--- NOTE | 2022-02-08 12:07 | DI.RAD.S_ITS ---
PROCEDURE: XR CHEST 1V INDICATIONS: sepsis TECHNIQUE: One view of the chest was acquired. COMPARISON: [facility], CT, CT ANGIO CHEST PE PROTOCOL, 11/02/2021, 0:15. [facility], CR, XR CHEST 1V, 01/24/2022, 11:17. [facility], CR, XR CHEST 1V, 12/24/2021, 9:35. FINDINGS: Surgical changes and devices: None. Lungs and pleura: Prominent interstitial markings. Bibasilar hazy opacity. No pleural effusions or pneumothorax. Mediastinum: Mediastinal contours appear similar. Heart size is prominent. Bones and chest wall: No suspicious bony lesions. Overlying soft tissues appear unremarkable. IMPRESSION: Prominent interstitial markings. This could be due to pulmonary vasculature engorgement. Less likely infectious/inflammatory etiology. Dictated by: Broderick Chahal M.D. on 02/08/2022 at 12:27 Approved by: Broderick Chahal M.D. on 02/08/2022 at 12:29
[2022-02-08 12:23] LABS: Add Manual Diff / Slide Review NO; Basophils Absolute Auto 0 /uL (0-100); Basophils Percent Auto 0.3 % (0-2); Eosinophils Absolute Auto 0 /uL (0-450); Eosinophils Percent Auto 0.1 % (2-4); Hematocrit 37.5 % (41-53); Hemoglobin 12.4 g/dL (13.5-17.5); Lymphocytes Absolute Auto 400 /uL (1100-4500); Lymphocytes Percent Auto 3.1 % (25-40); Mean Corpuscular HGB Conc 32.9 % (30-36); Mean Corpuscular Hemoglobin 28.5 PG (26-34); Mean Corpuscular Volume 86.7 fL (80-100); Monocytes Absolute Auto 1100 /uL (0-900); Monocytes Percent Auto 9.4 % (3-14); Neutrophils Absolute Auto 10600 /uL (1500-7000); Neutrophils Percent Auto 87.1 % (50-75); Platelet Count 140 X10^3/uL (150-400); Red Blood Cell Count 4.33 X10^6/uL (4.5-5.9); Red Cell Distribution Width 19.2 % (11.6-14.8); White Blood Cell Count 12.2 X10^3/uL (4.5-11.0)
[2022-02-08] MEDS: SODIUM CHLORIDE 0.9% 1,000 ML 1000 ML IV (12:28)
[2022-02-08] MEDS: ACETAMINOPHEN 325 MG TABLET 975 MG PO (12:28)
[2022-02-08 12:44] LABS: Prothrombin Time 11.7 SECONDS (10.1-12.7)
[2022-02-08 12:47] LABS: PTT Partial Thromboplastin Tim 25 SECONDS (26.4-36.2)
[2022-02-08 12:47] LABS: COVID19 -Nasal RAPID Negative (Negative)
[2022-02-08] MEDS: FLUORESCEIN 1 MG STRIP EYE-BOTH (12:49)
[2022-02-08] MEDS: PROPARACAINE 0.5% OPHTH SOL 1 DROPS EYE-BOTH (12:49)
[2022-02-08] MEDS: cefTRIAXone 2,000 MG in SODIUM CHLORIDE 0.9% 100 ML 200 MG IV (12:49)
[2022-02-08 12:51] LABS: Lactate (Lactic Acid) 1.5 mmol/L (0.7-2.1)
[2022-02-08] MEDS: DEXTROSE 5% IV (12:52)
[2022-02-08] MEDS: WATER IV (12:52)
[2022-02-08] MEDS: ACYCLOVIR IV (12:52)
[2022-02-08 13:03] LABS: BUN Creatinine Ratio 31.7 (6-22); Blood Urea Nitrogen 40 mg/dL (9-20); Carbon Dioxide 31 mmol/L (22-32); Chloride 99 mmol/L (98-107); Creatine Kinase < 20 U/L (55-170); Estimated Glomerular Filt Rate 56 mL/min (>60); Glucose 130 mg/dL (80-110); NT-proBNP (BNP-Adult 18+) 302 pg/mL (<450); Potassium 4.3 mmol/L (3.4-5.1); Sodium 137 mmol/L (137-145); Troponin I < 0.012 ng/mL (0.01-0.034)
[2022-02-08 13:04] LABS: Alanine Aminotransferase 52 IU/L (<50); Albumin 3.8 g/dL (3.5-5.0); Albumin Globulin Ratio 1.2 (1.0-2.8); Alkaline Phosphatase 58 U/L (38-126); Aspartate Aminotransferase 49 IU/L (17-59); Bilirubin Total 0.4 mg/dL (0.2-1.3); Globulin 3.2 g/dL (1.7-4.1); Procalcitonin 0.16 ng/mL (<0.5)
[2022-02-08 13:05] LABS: HEMOLYSIS < 15 (0-50)
--- NOTE | 2022-02-08 13:34 | ED.EYEPROB ---
HPI - Eye Problem <Angelesjoe Gerardo, - Last Filed: 02/09/22 21:12> General Chief complaint: Eye Problems Stated complaint: Bilateral eye infections Time Seen by Provider: 02/08/22 12:03 Source: patient, family (daughter Nessa) and old records reviewed Limitations: no limitations History of Present Illness HPI Narrative: This is an 86-year-old male with history of obstructive sleep apnea, hypertension, dyslipidemia, prior stroke, COPD, CHF and BPH with history of dementia as well. Patient comes today with rash and increasing swelling of the left base and now both eyes. Patient was by myself on 02/02/2022 he was complaining of left eye pain he had some mild injection but otherwise normal skin and eye exam with negative floor seen testing. Patient was seen the following day. At that time he had suspected giant cell arteritis with elevated ESR and CRP with tenderness over the left temporal region. Patient took prednisone for 1 day and reportedly has not taken any more since then. I spoke with his daughter who states she noticed in the last 2 days some red spots and then increasing scabbing yesterday but that he did not have the swelling or significant skin changes or that his eyelid had swollen shut until today. Patient did have a fever in the department but no reported fevers outside. He denies any pain currently he was complaining of pain before. He does think that his vision has changed on the left side. He denies chest pain or shortness of breath, no nausea or vomiting, no other GI or urinary symptoms. He was also given a prescription his 2nd visit for erythromycin ointment. Related Data Home Medications Medication Instructions Recorded Confirmed cholecalciferol (vitamin D3) 50 2,000 unit PO DAILY 02/13/21 02/10/22 mcg (2,000 unit) capsule (Vitamin D3) amlodipine 10 mg tablet 10 mg PO DAILY 11/02/21 02/10/22 melatonin 5 mg tablet 5 mg PO BEDTIME 11/02/21 02/10/22 Saccharomyces boulardii 250 mg 250 mg PO DAILY 02/10/22 02/10/22 capsule (Florastor) Previous Rx's Medication Instructions Recorded pantoprazole 40 mg tablet,delayed 40 mg PO BID #180 tabs 08/28/21 release allopurinol 100 mg tablet 100 mg PO DAILY #90 tabs 10/23/21 atenolol 50 mg tablet 50 mg PO BID #180 tabs 10/23/21 tamsulosin 0.4 mg capsule 0.4 mg PO BEDTIME #90 caps 10/23/21 duloxetine 20 mg capsule,delayed 20 mg PO DAILY #90 caps 02/04/22 release potassium chloride 20 mEq 20 meq PO DAILY #90 tabs 02/04/22 tablet,extended release acetaminophen 325 mg tablet 650 mg PO Q6H PRN pain #30 tabs 02/16/22 acyclovir 5 % topical ointment 1 applic topical QID #30 grams 02/16/22 acyclovir 5 % topical ointment 1 applic topical QID 7 days #30 02/16/22 grams erythromycin 5 mg/gram (0.5 %) eye 1 applic EYE-LEFT QID #3.5 grams 02/16/22 ointment erythromycin 5 mg/gram (0.5 %) eye 1 applic EYE-LEFT QID #50 grams 02/16/22 ointment valacyclovir 500 mg tablet 1,000 mg PO TID #15 tabs 02/16/22 valacyclovir 500 mg tablet 1,000 mg PO TID #15 tabs 02/16/22 Allergies Allergy/AdvReac Type Severity Reaction Status Date / Time No Known Drug Allergies Allergy Verified 02/07/22 10:21 Review of Systems <Angeles Gerardo DO - Last Filed: 02/09/22 21:12> Review of Systems ROS Unobtainable: All systems reviewed & are unremarkable except as noted in HPI and below Patient History <Angeles Gerardo DO - Last Filed: 02/09/22 21:12> Medical History (Updated 02/18/22 @ 00:01 by ) Acquired hypothyroidism (09/16/16) Actinic keratosis Basal cell carcinoma 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) Colon polyps COVID-19 virus infection (01/24/22) CVA (cerebral vascular accident) Depression (06/29/15) Erectile dysfunction (02/12/16) Essential hypertension (06/29/15) Gout Hemorrhoids Hyperlipemia Insomnia Metabolic encephalopathy Obstructive sleep apnea Osteoarthritis Pneumonia due to COVID-19 virus Primary insomnia (09/16/16) 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 HEENT: Atraumatic, patient has significant erythema with blistered rash with scabbing and ulcerations extending over the left scalp toward the eye consistent with shingles, there is erythema, crusting, there is some erythema crossing over the midline but no scabbing, crusting or other changes. Pupils are equal round reactive to light, extraocular movements are intact, nares are clear, TMs are clear with no fluid, there is no conjunctival pallor. Throat is clear without any exudates, erythema, tonsillar enlargement or uvular deviation. General: no globe trauma IOP Left-30-34 on checks x 3, Right-26 Visual acuity -Left 20-100, Right 20-70 (patient denies using glasses) Had to be held open for exam. Eyelids: Patient has swelling bilateral lids but particularly the left upper and lower lid with significant swelling requiring patient's eye be pried open to evaluate. Conjunctiva/Sclera: Normal in the right, patient has significant scleral swelling and erythema. Corneas: normal inspection, examined with fluroscein on bilaterally, on the right no uptake, on the left patient has several small spots not clearly dendritic but with his rash is very concerning.. EOM: intact, no palsy/entrapment Pupils: PERRL, normal accomadation, pupil normal Anterior Chambers: normal inspection, no hypema Posterior: Funduscopic very difficult to obtain on exam. HEART: Regular rate and rhythm without murmur, clicks, rubs. LUNGS:Lungs clear to auscultation, no wheezes, rales, crackles, chest moves symmetrically ABD:bowel sounds normal, soft, non-tender, no guarding, rebound, rigidity, no masses noted, no hepatosplenomegaly :No CVA tenderness MSCL: Non-tender, no muscle atrophy, full range of motion, normal gait NEURO:CN 2-12 intact, sensation normal Initial Vital Signs Initial Vital Signs: Vital Signs Temperature 100.9 F H 02/08/22 12:00 Pulse Rate 66 02/08/22 12:00 Respiratory Rate 27 H 02/08/22 12:00 Blood Pressure 139/63 02/08/22 12:00 Pulse Oximetry 88 L 02/08/22 12:00 Oxygen Delivery Method 02/08/22 12:00 <Kary Christian DO - Last Filed: 02/18/22 18:45> Initial Vital Signs Initial Vital Signs: Vital Signs Temperature 100.9 F H 02/08/22 12:00 Pulse Rate 66 02/08/22 12:00 Respiratory Rate 27 H 02/08/22 12:00 Blood Pressure 139/63 02/08/22 12:00 Pulse Oximetry 88 L 02/08/22 12:00 Oxygen Delivery Method 02/08/22 12:00 Course <nAgeles Gerardo DO - Last Filed: 02/09/22 21:12> Orders Ordered: Discontinued Medications Acetaminophen (Acetaminophen 325 Mg Tablet) 975 mg PO NOW ONE Stop: 02/08/22 12:08 Last Admin: 02/08/22 12:28 Dose: 975 mg Documented By: VERNON Brimonidine Tartrate (Brimonidine 0.2% Ophth 5 Ml) 1 drops EYE-BOTH NOW ONE Stop: 02/08/22 17:59 Last Admin: 02/08/22 18:30 Dose: 1 drops Documented By: MARCELO Dorzolamide/Timolol (Dorzolamide/Timolol Ophth 10 Ml) 1 drops EYE-BOTH NOW ONE Stop: 02/08/22 17:59 Last Admin: 02/08/22 18:21 Dose: 1 drops Documented By: MARCELO Fluorescein Sodium (Fluorescein 1 Mg Strip) 1 mg EYE-BOTH NOW ONE Stop: 02/08/22 12:18 Last Admin: 02/08/22 12:49 Dose: 1 mg Documented By: VERNON Sodium Chloride (Normal Saline 0.9%) 1,000 mls @ 1,000 mls/hr IV BOLUS ONE Stop: 02/08/22 13:05 Last Infusion: 02/08/22 15:23 Dose: 0 mls/hr Documented By: Admin: 02/08/22 12:28 Dose: 1,000 mls/hr Documented By: CTS Sodium Chloride (Normal Saline 0.9%) 1,000 mls @ 1,000 mls/hr IV BOLUS PRN PRN Reason: Fluid replacement Acyclovir 1,040 mg/ Dextrose 250 mls @ 250 mls/hr IV NOW ONE Stop: 02/08/22 12:17 Last Infusion: 02/08/22 14:13 Dose: 0 mls/hr Documented By: Admin: 02/08/22 12:52 Dose: 250 mls/hr Documented By: CTS Ceftriaxone Sodium 2,000 mg/ (Sodium Chloride) 100 mls @ 200 mls/hr IV NOW ONE Stop: 02/08/22 12:17 Last Infusion: 02/08/22 13:22 Dose: 0 mls/hr Documented By: Admin: 02/08/22 12:49 Dose: 200 mls/hr Documented By: CTS Proparacaine HCl (Proparacaine 0.5% Ophth Holly) 1 drops EYE-BOTH NOW ONE Stop: 02/08/22 12:18 Last Admin: 02/08/22 12:49 Dose: 1 drop Documented By: CTS Reevaluation(s) Reevaluation #1: Spoke with Daughter, Nessa. Patient seen 02/06 in office with PCP and had small spots. She states yesterday there was a little bit of redness but significantly changed overnight into today. Reevaluation #2: Recheck patient eye was re-examined, visual acuity an intraocular sure included. Patient aware of plan for transfer. He is agreeable with admission and treatment at this time. Consultations Consultation #1: Dr. Fisher ophthalmology recommends oral acyclovir with involvement does not need additional topical medications. Not available for inpatient follow up or outpatient follow up over the weekend. Consultation #2: Dr. Garland, hospitalist. Discussed we do not have Ophthalmology coverage in house. Based on patient's significant exam findings she would like patient to have ophthalmology evaluation before she would accept him and were not able to arrange this here in the department so she defers admission for shingles with likely overlying cellulitis. Consultation #3: Dr. Duran, [facility] ED with Ophthalmology. Discussed I suspect patient has shingles outbreak with eye involvement and extension of cellulitis overlying extending across face. Patient did have a fever here. He does not have any neurologic changes although he is typically quite cantankerous and today he is very pleasant and complaint on exam which is very atypical from his prior several visits that I have had with the patient and also according to his daughter. His labs do show leukocytosis, acyclovir, IV antibiotics, fluids exam was shared and images were transmitted. We did discuss that it will be very difficult to have short-term ophthalmology evaluation here and I think patient would benefit do not feel that he is appropriate for discharge home and follow-up. Plan to transfer to emergency department tonight for ED to ED transfer for ophthalmology evaluation. Time: 17:45 Vital Signs Vital signs: Vital Signs - 8 hr 02/08/22 12:00 02/08/22 12:28 02/08/22 12:13 Temperature 100.9 F H 100.9 F H Pulse Rate 66 69 Respiratory Rate 27 H 29 H Blood Pressure 139/63 Pulse Oximetry 88 L 98 Oxygen Delivery Method Room Air 02/08/22 12:30 02/08/22 12:30 02/08/22 13:00 Temperature Pulse Rate 69 Respiratory Rate 25 H Blood Pressure 153/68 H 146/65 H Pulse Oximetry 93 Oxygen Delivery Method 02/08/22 13:00 02/08/22 13:30 02/08/22 13:30 Temperature Pulse Rate 67 75 Respiratory Rate 25 H 27 H Blood Pressure 135/61 Pulse Oximetry 100 98 Oxygen Delivery Method 02/08/22 14:00 02/08/22 14:00 02/08/22 14:30 Temperature Pulse Rate 71 66 Respiratory Rate 25 H 23 Blood Pressure 130/67 Pulse Oximetry 97 96 Oxygen Delivery Method 02/08/22 14:36 02/08/22 14:36 02/08/22 15:00 Temperature Pulse Rate 66 Respiratory Rate 23 Blood Pressure 130/63 141/64 H Pulse Oximetry 97 Oxygen Delivery Method 02/08/22 15:00 02/08/22 15:30 02/08/22 15:30 Temperature Pulse Rate 69 67 Respiratory Rate 26 H 25 H Blood Pressure 145/66 H Pulse Oximetry 94 97 Oxygen Delivery Method 02/08/22 16:00 02/08/22 16:00 Temperature Pulse Rate 68 Respiratory Rate 24 Blood Pressure 157/58 H Pulse Oximetry 96 Oxygen Delivery Method <Kary Christian DO - Last Filed: 02/18/22 18:45> Orders Ordered: Discontinued Medications Acetaminophen (Acetaminophen 325 Mg Tablet) 975 mg PO NOW ONE Stop: 02/08/22 12:08 Last Admin: 02/08/22 12:28 Dose: 975 mg Documented By: VERNON Brimonidine Tartrate (Brimonidine 0.2% Ophth 5 Ml) 1 drops EYE-BOTH NOW ONE Stop: 02/08/22 17:59 Last Admin: 02/08/22 18:30 Dose: 1 drops Documented By: RL Dorzolamide/Timolol (Dorzolamide/Timolol Ophth 10 Ml) 1 drops EYE-BOTH NOW ONE Stop: 02/08/22 17:59 Last Admin: 02/08/22 18:21 Dose: 1 drops Documented By: MARCELO Fluorescein Sodium (Fluorescein 1 Mg Strip) 1 mg EYE-BOTH NOW ONE Stop: 02/08/22 12:18 Last Admin: 02/08/22 12:49 Dose: 1 mg Documented By: CTS Sodium Chloride (Normal Saline 0.9%) 1,000 mls @ 1,000 mls/hr IV BOLUS ONE Stop: 02/08/22 13:05 Last Infusion: 02/08/22 15:23 Dose: 0 mls/hr Documented By: Admin: 02/08/22 12:28 Dose: 1,000 mls/hr Documented By: CTS Sodium Chloride (Normal Saline 0.9%) 1,000 mls @ 1,000 mls/hr IV BOLUS PRN PRN Reason: Fluid replacement Acyclovir 1,040 mg/ Dextrose 250 mls @ 250 mls/hr IV NOW ONE Stop: 02/08/22 12:17 Last Infusion: 02/08/22 14:13 Dose: 0 mls/hr Documented By: Admin: 02/08/22 12:52 Dose: 250 mls/hr Documented By: CTS Ceftriaxone Sodium 2,000 mg/ (Sodium Chloride) 100 mls @ 200 mls/hr IV NOW ONE Stop: 02/08/22 12:17 Last Infusion: 02/08/22 13:22 Dose: 0 mls/hr Documented By: Admin: 02/08/22 12:49 Dose: 200 mls/hr Documented By: VERNON Proparacaine HCl (Proparacaine 0.5% Ophth Holly) 1 drops EYE-BOTH NOW ONE Stop: 02/08/22 12:18 Last Admin: 02/08/22 12:49 Dose: 1 drop Documented By: VERNON Vital Signs Vital signs: Vital Signs - 8 hr 02/08/22 12:00 02/08/22 12:28 02/08/22 12:13 Temperature 100.9 F H 100.9 F H Pulse Rate 66 69 Respiratory Rate 27 H 29 H Blood Pressure 139/63 Pulse Oximetry 88 L 98 Oxygen Delivery Method Room Air 02/08/22 12:30 02/08/22 12:30 02/08/22 13:00 Temperature Pulse Rate 69 Respiratory Rate 25 H Blood Pressure 153/68 H 146/65 H Pulse Oximetry 93 Oxygen Delivery Method 02/08/22 13:00 02/08/22 13:30 02/08/22 13:30 Temperature Pulse Rate 67 75 Respiratory Rate 25 H 27 H Blood Pressure 135/61 Pulse Oximetry 100 98 Oxygen Delivery Method 02/08/22 14:00 02/08/22 14:00 02/08/22 14:30 Temperature Pulse Rate 71 66 Respiratory Rate 25 H 23 Blood Pressure 130/67 Pulse Oximetry 97 96 Oxygen Delivery Method 02/08/22 14:36 02/08/22 14:36 02/08/22 15:00 Temperature Pulse Rate 66 Respiratory Rate 23 Blood Pressure 130/63 141/64 H Pulse Oximetry 97 Oxygen Delivery Method 02/08/22 15:00 02/08/22 15:30 02/08/22 15:30 Temperature Pulse Rate 69 67 Respiratory Rate 26 H 25 H Blood Pressure 145/66 H Pulse Oximetry 94 97 Oxygen Delivery Method 02/08/22 16:00 02/08/22 16:00 Temperature Pulse Rate 68 Respiratory Rate 24 Blood Pressure 157/58 H Pulse Oximetry 96 Oxygen Delivery Method MDM - Eye Problem <Angeles Gerardo, - Last Filed: 02/09/22 21:12> Lab Data Result diagrams: 02/08/22 12:00 02/08/22 12:00 Labs: Lab Results 02/08/22 02/08/22 02/08/22 Range/Units 12:00 12:00 12:00 WBC 12.2 H (4.5-11.0) X10^3/uL RBC 4.33 L (4.5-5.9) X10^6/uL Hgb 12.4 L (13.5-17.5) g/dL Hct 37.5 L (41-53) % MCV 86.7 (80-100) fL MCH 28.5 (26-34) PG MCHC 32.9 (30-36) % RDW 19.2 H (11.6-14.8) % Plt Count 140 L (150-400) X10^3/uL Neut % (Auto) 87.1 H (50-75) % Lymph % (Auto) 3.1 L (25-40) % Preston % (Auto) 9.4 (3-14) % Eos % (Auto) 0.1 L (2-4) % Baso % (Auto) 0.3 (0-2) % Neut # (Auto) 54190 H (2404-3287) /uL Lymph # (Auto) 400 L (3834-2094) /uL Preston # (Auto) 1100 H (0-900) /uL Eos # (Auto) 0 (0-450) /uL Baso # (Auto) 0 (0-100) /uL PT 11.7 (10.1-12.7) SECONDS INR 1.0 (0.9-1.3) APTT 25 L D (26.4-36.2) SECONDS Sodium 137 (137-145) mmol/L Potassium 4.3 (3.4-5.1) mmol/L Chloride 99 (98-107) mmol/L Carbon Dioxide 31 (22-32) mmol/L BUN 40 H (9-20) mg/dL Creatinine 1.26 H (0.66-1.25) mg/dL Estimated GFR 56 L (>60) mL/min BUN/Creatinine Ratio 31.7 H (6-22) Glucose 130 H (80-110) mg/dL Lactate (0.7-2.1) mmol/L Calcium 9.0 (8.4-10.2) mg/dL Total Bilirubin 0.4 (0.2-1.3) mg/dL AST 49 (17-59) IU/L ALT 52 H (<50) IU/L Alkaline Phosphatase 58 (38-126) U/L Total Creatine Kinase < 20 L (55-170) U/L CK-MB (CK-2) TNP CK-MB (CK-2) Rel Index TNP Troponin I < 0.012 (0.01-0.034) ng/mL NT-Pro-B Natriuret Pep 302 (<450) pg/mL Total Protein 7.0 (6.3-8.2) g/dL Albumin 3.8 (3.5-5.0) g/dL Globulin 3.2 (1.7-4.1) g/dL Albumin/Globulin Ratio 1.2 (1.0-2.8) Procalcitonin 0.16 (<0.5) ng/mL SARS-CoV-2 (PCR) 02/08/22 02/08/22 02/08/22 Range/Units 12:00 12:00 12:07 WBC (4.5-11.0) X10^3/uL RBC (4.5-5.9) X10^6/uL Hgb (13.5-17.5) g/dL Hct (41-53) % MCV (80-100) fL MCH (26-34) PG MCHC (30-36) % RDW (11.6-14.8) % Plt Count (150-400) X10^3/uL Neut % (Auto) (50-75) % Lymph % (Auto) (25-40) % Preston % (Auto) (3-14) % Eos % (Auto) (2-4) % Baso % (Auto) (0-2) % Neut # (Auto) (4815-6946) /uL Lymph # (Auto) (0552-8307) /uL Preston # (Auto) (0-900) /uL Eos # (Auto) (0-450) /uL Baso # (Auto) (0-100) /uL PT (10.1-12.7) SECONDS INR (0.9-1.3) APTT (26.4-36.2) SECONDS Sodium (137-145) mmol/L Potassium (3.4-5.1) mmol/L Chloride (98-107) mmol/L Carbon Dioxide (22-32) mmol/L BUN (9-20) mg/dL Creatinine (0.66-1.25) mg/dL Estimated GFR (>60) mL/min BUN/Creatinine Ratio (6-22) Glucose (80-110) mg/dL Lactate 1.5 (0.7-2.1) mmol/L Calcium (8.4-10.2) mg/dL Total Bilirubin (0.2-1.3) mg/dL AST (17-59) IU/L ALT (<50) IU/L Alkaline Phosphatase (38-126) U/L Total Creatine Kinase (55-170) U/L CK-MB (CK-2) CK-MB (CK-2) Rel Index Troponin I (0.01-0.034) ng/mL NT-Pro-B Natriuret Pep (<450) pg/mL Total Protein (6.3-8.2) g/dL Albumin (3.5-5.0) g/dL Globulin (1.7-4.1) g/dL Albumin/Globulin Ratio (1.0-2.8) Procalcitonin (<0.5) ng/mL SARS-CoV-2 (PCR) Cancelled Negative Imaging Data CT scan - head: Radiologist's Impression: Close Head CT (Signed) Alberto Nash - 02/08/22 Chest X-Ray (Signed) Broderick Chahal - 02/08/22 Chest X-Ray (Signed) Gilson Bustamante - 01/24/[address] (Signed) Humble Franco - 12/24/21 Telemetry Strips 12/24/21 Telemetry Strips 12/24/21 Chest X-Ray (Signed) Amy Sauer - 12/24/21 Echocardiogram Ultrasound (Signed) Radha Aleman - 11/02/21 Renal Ultrasound (Signed) Fawn Palma - 11/02/21 Chest X-Ray (Signed) Narciso Haywood - 11/02/21 Chest CTA (Signed) Eduardo Kurtz - 11/02/21 Chest X-Ray (Signed) Eduardo Kurtz - 11/01/21 Brain MRI (Signed) hTo Mccall - 02/14/21 Telemetry Strips 02/13/[address] (Signed) Shara Malik - 02/13/21 Chest X-Ray (Signed) Broderick Chahal - 02/13/21 Chest X-Ray (Signed) Raul Honeycutt - 01/28/21 Telemetry Strips 01/27/21 Telemetry Strips 01/27/21 Chest CTA (Signed) Raul Honeycutt - 01/27/21 Chest X-Ray (Signed) Raul Honeycutt - 01/27/21 Wrist X-Ray (Signed) Raul Honeycutt - 01/02/21 Echocardiogram Ultrasound (Signed) Bacilio Mohamud - 01/01/21 Knee X-Ray (Signed) Tho Mccall - 01/01/21 Knee X-Ray (Signed) Tho Mccall - 01/01/21 Ankle X-Ray (Signed) Tho Mccall - 01/01/21 Ankle X-Ray (Signed) Tho Mccall - 01/01/21 Vascular Ultrasound (Signed) Alberto Nash - 01/01/21 Chest X-Ray (Signed) Raul Honeycutt - 01/01/21 Vascular Ultrasound (Signed) Raul Honeycutt - 12/08/20 Radiology Report (Cancelled) Justice Saba - 12/07/20 Myocardial Perfusion Scan Nuc Med (Signed) Justice Saba - 12/07/20 Telemetry Strips 12/06/20 Chest X-Ray (Signed) Humble Franco - 12/06/20 Peripheral Vascular Ultrasound (Signed) Yadiel Ramírez - 11/25/20 Hand X-Ray (Signed) Yadiel Ramírez - 11/25/20 Chest X-Ray (Signed) Yadiel Ramírez - 11/25/20 Chest X-Ray (Signed) Toh Mccall - 10/23/[address] (Signed) Humble Franco - 10/23/20 Chest X-Ray (Signed) Humble Franco - 10/23/20 Abdomen/Pelvis CT (Signed) Eduardo Kurtz - 10/23/20 Knee X-Ray (Signed) Eduardo Kurtz - 10/23/20 Chest X-Ray (Signed) Eduardo Kurtz - 10/23/[address] (Signed) Eduardo Kurtz - 10/23/20 Radiology - Historical 09/14/16 Radiology - Historical 08/29/16 Radiology - Historical 08/07/16 Radiology - Historical 08/07/[address] [place] [address] CT Scan Report Signed Patient: Klever George MR#: [id number] : 1935 Acct:[id number] Age/Sex: 86 / M Date of Service: 02/08/22 Loc: ED Accession Number: [id number] ?? Procedure: CT head/brain wo con Ordering Provider: Angeles Gerardo D.O. PROCEDURE:? CT HEAD/BRAIN WO CON ? INDICATIONS:? cellulitis, shingles ? TECHNIQUE:? Noncontrast 4.5 mm thick angled axial sections acquired from the foramen magnum to the vertex, with coronal and sagittal reformats.? For radiation dose reduction, the following was used:? automated exposure control, adjustment of mA and/or kV according to patient size.? ? COMPARISON:? [facility], MR, MR STROKE, 02/14/2021, 7:45.? [facility], MR, MR BRAIN WITHOUT CONTRAST, 10/27/2020, 15:28.? [facility], CT, CT HEAD WITHOUT CONTRAST, 11/11/2020, 10:53.? [facility], CT, CT HEAD/BRAIN WO CON, 02/13/2021, 15:37.? [facility], CT, CT HEAD/BRAIN WO CON, 12/24/2021, 12:29. ? FINDINGS:? Image quality:? Excellent.? ? CSF spaces:? Basal cisterns are patent.? No extra-axial fluid collections.? The ventricles are symmetric in size and shape.? ? Brain:? No intracranial bleeds. 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 ? There is cerebral volume loss for age, with resultant ventricular and sulcal prominence.? There are periventricular and deep white matter chronic small vessel ischemic changes.? 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 ? There is intracranial internal carotid artery atherosclerosis.? ? Skull and face:? Left forehead and facial swelling can be seen.? No kassi, focal soft tissue fluid collection is seen. ? Calvarium and visualized facial bones appear intact, without suspicious lesions.? ? Sinuses:? Visualized sinuses and mastoids are clear.? ? ? IMPRESSION:? Left soft tissue swelling, without kassi abscess.? ? Remote right frontal lobe infarction.? ? 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 ? ? Dictated by: Alberto Nash M.D. on 02/08/2022 at 13:24 ? ? Approved by: Alberto Nash M.D. on 02/08/2022 at 13:29?? ECG Data Attestation: I personally reviewed and interpreted this ECG as follows: Interpretation: Normal sinus rhythm, rate of 69, IN 154, QRS [address] QTC [address]. No acute ST changes. MDM Narrative Medical decision making narrative: This is an 86-year-old male comes emergency department with complaint of swelling of both eyes particularly the left patient has being seen 2 times before starting around 02/02/2022 at that time patient had some mild injection but no other signs on exam he had elevated ESR CRP there was concern for giant cell arteritis. Patient was supposed to get biopsy today but in the past 2-3 days has developed initially small scab spots over his forearm and no significant redness swelling with his eyes swollen shut and even the rash is not cross midline but the redness has and there is some swelling of the opposite might as well. Patient has some uptake in the eye itself suspect shingles with overlying cellulitis. Patient's mentation is at normal baseline but he was febrile, he was given a dose of IV acyclovir, IV antibiotics, after discussion with Ophthalmology he did have elevated interocular pressures this may been secondary to exam is we had to pry his eyes open but these were given in the department serially with plan to recheck pressure once he arrives at [facility]. Patient was accepted for transfer for ED to ED for ophthalmology evaluation and additional treatment as appropriate. <Kary Christian, DO - Last Filed: 02/18/22 18:45> Lab Data Labs: Lab Results 02/08/22 02/08/22 02/08/22 Range/Units 12:00 12:00 12:00 WBC 12.2 H (4.5-11.0) X10^3/uL RBC 4.33 L (4.5-5.9) X10^6/uL Hgb 12.4 L (13.5-17.5) g/dL Hct 37.5 L (41-53) % MCV 86.7 (80-100) fL MCH 28.5 (26-34) PG MCHC 32.9 (30-36) % RDW 19.2 H (11.6-14.8) % Plt Count 140 L (150-400) X10^3/uL Neut % (Auto) 87.1 H (50-75) % Lymph % (Auto) 3.1 L (25-40) % Preston % (Auto) 9.4 (3-14) % Eos % (Auto) 0.1 L (2-4) % Baso % (Auto) 0.3 (0-2) % Neut # (Auto) 69816 H (1081-6341) /uL Lymph # (Auto) 400 L (4819-5872) /uL Preston # (Auto) 1100 H (0-900) /uL Eos # (Auto) 0 (0-450) /uL Baso # (Auto) 0 (0-100) /uL PT 11.7 (10.1-12.7) SECONDS INR 1.0 (0.9-1.3) APTT 25 L D (26.4-36.2) SECONDS Sodium 137 (137-145) mmol/L Potassium 4.3 (3.4-5.1) mmol/L Chloride 99 (98-107) mmol/L Carbon Dioxide 31 (22-32) mmol/L BUN 40 H (9-20) mg/dL Creatinine 1.26 H (0.66-1.25) mg/dL Estimated GFR 56 L (>60) mL/min BUN/Creatinine Ratio 31.7 H (6-22) Glucose 130 H (80-110) mg/dL Lactate (0.7-2.1) mmol/L Calcium 9.0 (8.4-10.2) mg/dL Total Bilirubin 0.4 (0.2-1.3) mg/dL AST 49 (17-59) IU/L ALT 52 H (<50) IU/L Alkaline Phosphatase 58 (38-126) U/L Total Creatine Kinase < 20 L (55-170) U/L CK-MB (CK-2) TNP CK-MB (CK-2) Rel Index TNP Troponin I < 0.012 (0.01-0.034) ng/mL NT-Pro-B Natriuret Pep 302 (<450) pg/mL Total Protein 7.0 (6.3-8.2) g/dL Albumin 3.8 (3.5-5.0) g/dL Globulin 3.2 (1.7-4.1) g/dL Albumin/Globulin Ratio 1.2 (1.0-2.8) Procalcitonin 0.16 (<0.5) ng/mL SARS-CoV-2 (PCR) 02/08/22 02/08/22 02/08/22 Range/Units 12:00 12:00 12:07 WBC (4.5-11.0) X10^3/uL RBC (4.5-5.9) X10^6/uL Hgb (13.5-17.5) g/dL Hct (41-53) % MCV (80-100) fL MCH (26-34) PG MCHC (30-36) % RDW (11.6-14.8) % Plt Count (150-400) X10^3/uL Neut % (Auto) (50-75) % Lymph % (Auto) (25-40) % Preston % (Auto) (3-14) % Eos % (Auto) (2-4) % Baso % (Auto) (0-2) % Neut # (Auto) (5574-4459) /uL Lymph # (Auto) (2887-7132) /uL Preston # (Auto) (0-900) /uL Eos # (Auto) (0-450) /uL Baso # (Auto) (0-100) /uL PT (10.1-12.7) SECONDS INR (0.9-1.3) APTT (26.4-36.2) SECONDS Sodium (137-145) mmol/L Potassium (3.4-5.1) mmol/L Chloride (98-107) mmol/L Carbon Dioxide (22-32) mmol/L BUN (9-20) mg/dL Creatinine (0.66-1.25) mg/dL Estimated GFR (>60) mL/min BUN/Creatinine Ratio (6-22) Glucose (80-110) mg/dL Lactate 1.5 (0.7-2.1) mmol/L Calcium (8.4-10.2) mg/dL Total Bilirubin (0.2-1.3) mg/dL AST (17-59) IU/L ALT (<50) IU/L Alkaline Phosphatase (38-126) U/L Total Creatine Kinase (55-170) U/L CK-MB (CK-2) CK-MB (CK-2) Rel Index Troponin I (0.01-0.034) ng/mL NT-Pro-B Natriuret Pep (<450) pg/mL Total Protein (6.3-8.2) g/dL Albumin (3.5-5.0) g/dL Globulin (1.7-4.1) g/dL Albumin/Globulin Ratio (1.0-2.8) Procalcitonin (<0.5) ng/mL SARS-CoV-2 (PCR) Cancelled Negative MDM Narrative Medical decision making narrative: This is an 86-year-old male comes emergency department with complaint of swelling of both eyes particularly the left patient has being seen 2 times before starting around 02/02/2022 at that time patient had some mild injection but no other signs on exam he had elevated ESR CRP there was concern for giant cell arteritis. Patient was supposed to get biopsy today but in the past 2-3 days has developed initially small scab spots over his forearm and no significant redness swelling with his eyes swollen shut and even the rash is not cross midline but the redness has and there is some swelling of the opposite might as well. Patient has some uptake in the eye itself suspect shingles with overlying cellulitis. Patient's mentation is at normal baseline but he was febrile, he was given a dose of IV acyclovir, IV antibiotics, after discussion with Ophthalmology he did have elevated interocular pressures this may been secondary to exam is we had to pry his eyes open but these were given in the department serially with plan to recheck pressure once he arrives at [facility]. Patient was accepted for transfer for ED to ED for ophthalmology evaluation and additional treatment as appropriate. Gino-patient signed out to me patient quickly and easily transferred without any issue Critical Care Time <Angeles Gerardo DO - Last Filed: 02/09/22 21:12> Critical Care Time Critical Care Time: Yes Total Critical Care Time: 45 Attestation: The high probability of a clinically significant, sudden or life threatening deterioration of the (ophthalmic), system(s) required my full and direct attention, intervention and personal management. The aggregate critical care time was [] minutes. This time is in addition to time spent performing reported procedures but includes the following: [x] Data Review and interpretation [x] Patient assessment and monitoring of vital signs [x] Documentation [x] Medication orders and management Discharge Plan Departure Patient Disposition: [facility] Clinical Impression: Shingles, Cellulitis of face Prescriptions: No Action pantoprazole 40 mg tablet,delayed release (DR/EC) 40 mg PO BID Qty: 180 3RF Label Comments: 40 mg PO BID tamsulosin 0.4 mg capsule 0.4 mg PO BEDTIME Qty: 90 3RF atenolol 50 mg tablet 50 mg PO BID Qty: 180 1RF allopurinol 100 mg tablet 100 mg PO DAILY Qty: 90 1RF duloxetine 20 mg capsule,delayed release(DR/EC) 20 mg PO DAILY Qty: 90 4RF potassium chloride 20 mEq tablet extended release 20 meq PO DAILY Qty: 90 4RF cholecalciferol (vitamin D3) [Vitamin D3] 50 mcg (2,000 unit) Capsule 2,000 unit PO DAILY amlodipine 10 mg tablet 10 mg PO DAILY Rx Instructions: TAKE 1 TABLET BY MOUTH EVERY DAY melatonin 5 mg Tablet 5 mg PO BEDTIME Saccharomyces boulardii [Florastor] 250 mg Capsule 250 mg PO DAILY acetaminophen 325 mg Tablet 650 mg PO Q6H PRN (Reason: pain) Qty: 30 0RF valacyclovir 500 mg Tablet 1,000 mg PO TID Qty: 15 0RF erythromycin 5 mg/gram (0.5 %) Ointment 1 applic EYE-LEFT QID Qty: 3.5 0RF acyclovir 5 % Ointment 1 applic topical QID Qty: 30 0RF acyclovir 5 % ointment 1 applic topical QID 7 Days Qty: 30 0RF valacyclovir 500 mg tablet 1,000 mg PO TID Qty: 15 0RF erythromycin 5 mg/gram (0.5 %) ointment 1 applic EYE-LEFT QID Qty: 50 0RF Referrals: Larry Roman MD [Primary Care Provider] -
--- NOTE | 2022-02-08 13:39 | DI.CT.S_ITS ---
PROCEDURE: CT HEAD/BRAIN WO CON INDICATIONS: cellulitis, shingles TECHNIQUE: Noncontrast 4.5 mm thick angled axial sections acquired from the foramen magnum to the vertex, with coronal and sagittal reformats. For radiation dose reduction, the following was used: automated exposure control, adjustment of mA and/or kV according to patient size. COMPARISON: [facility], MR, MR STROKE, 02/14/2021, 7:45. [facility], MR, MR BRAIN WITHOUT CONTRAST, 10/27/2020, 15:28. [facility], CT, CT HEAD WITHOUT CONTRAST, 11/11/2020, 10:53. [facility], CT, CT HEAD/BRAIN WO CON, 02/13/2021, 15:37. [facility], CT, CT HEAD/BRAIN WO CON, 12/24/2021, 12:29. FINDINGS: Image quality: Excellent. CSF spaces: Basal cisterns are patent. No extra-axial fluid collections. The ventricles are symmetric in size and shape. Brain: No intracranial bleeds. 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 There is cerebral volume loss for age, with resultant ventricular and sulcal prominence. There are periventricular and deep white matter chronic small vessel ischemic changes. 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 There is intracranial internal carotid artery atherosclerosis. Skull and face: Left forehead and facial swelling can be seen. No kassi, focal soft tissue fluid collection is seen. Calvarium and visualized facial bones appear intact, without suspicious lesions. Sinuses: Visualized sinuses and mastoids are clear. IMPRESSION: Left soft tissue swelling, without kassi abscess. 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 Dictated by: Alberto Nash M.D. on 02/08/2022 at 13:24 Approved by: Albetro Nash M.D. on 02/08/2022 at 13:29
[2022-02-08] MEDS: DORZOLAMIDE/TIMOLOL OPHTH 10 ML 1 DROPS EYE-BOTH (18:21)
[2022-02-08] MEDS: BRIMONIDINE 0.2% OPHTH 5 ML 1 DROPS EYE-BOTH (18:30)
== END 2022-02-08 19:02 | disposition short-term general hospital (02) ==
PROVIDERS: Emergency Provider Emergency Medicine; Family Provider Student in an Organized Health Care Education/Training Program; PCP Student in an Organized Health Care Education/Training Program
DX: L03.211 Cellulitis of face (principal); B02.9 Zoster without complications; M31.6 Other giant cell arteritis
CPT/HCPCS: 36415; 70450; 71045; 80053; 82550; 83605; 83880; 84145; 84484; 85025; 85610; 85730; 87040; 87070; 87075; 87077; 87147; 87186; 87205; 87635; 93005; 93010; 99285; C9803; J0696

== ENCOUNTER 2022-02-09 22:10 | Inpatient (IN) | payer OTHER, SELFPAY ==
[2022-02-06 11:19] VITALS: PULSE 60; RESP 23; O2SAT 99; BMI 33.6
[2022-02-09 22:25] VITALS: BP 144/65; PULSE 86; RESP 18; TEMP 37.8; O2SAT 97
--- NOTE | 2022-02-09 23:17 | DI.CT.S_ITS ---
PROCEDURE: CT HEAD/BRAIN WO CON INDICATIONS: fall? TECHNIQUE: Noncontrast 4.5 mm thick angled axial sections acquired from the foramen magnum to the vertex, with coronal and sagittal reformats. For radiation dose reduction, the following was used: automated exposure control, adjustment of mA and/or kV according to patient size. COMPARISON: [facility], CT, CT HEAD/BRAIN WO CON, 02/08/2022, 14:16. [facility], CT, CT HEAD/BRAIN WO CON, 12/24/2021, 12:29. FINDINGS: Image quality: Excellent. CSF spaces: Basal cisterns are patent. No extra-axial fluid collections. The ventricles are symmetric in size and shape. Brain: No intracranial bleeds or masses. There is cerebral volume loss for age, with resultant ventricular and sulcal prominence. There are periventricular and deep white matter chronic small vessel ischemic changes. There is intracranial internal carotid artery atherosclerosis. Skull and face: Calvarium and visualized facial bones appear intact, without suspicious lesions. Sinuses: Visualized sinuses and mastoids are clear. IMPRESSION: No trauma found. Dictated by: Raul Honeycutt M.D. on 02/10/2022 at 0:08 Approved by: Raul Honeycutt M.D. on 02/10/2022 at 0:08
--- NOTE | 2022-02-09 23:17 | DI.RAD.S_ITS ---
PROCEDURE: XR CHEST 1V INDICATIONS: short of breath? TECHNIQUE: One view of the chest was acquired. COMPARISON: [facility], CR, XR CHEST 1V, 02/08/2022, 12:06. [facility], CR, XR CHEST 1V, 01/24/2022, 11:17. FINDINGS: Surgical changes and devices: None. Lungs and pleura: Lungs are abnormal with an interstitial prominence present also 01/24/22 and 02/08/22. No pleural effusions or pneumothorax. Mediastinum: Mediastinal contours appear normal. Heart size is normal. Bones and chest wall: No suspicious bony lesions. Overlying soft tissues appear unremarkable. IMPRESSION: Interstitial prominence, to the degree that atypical/viral pneumonia may be present. Focal consolidative pneumonia is not seen. Dictated by: Raul Honeycutt M.D. on 02/10/2022 at 0:06 Approved by: Raul Honeycutt M.D. on 02/10/2022 at 0:07
[2022-02-09 23:35] VITALS: TEMP 38.2
[2022-02-10] VITALS (17 sets, daily range): BP systolic 105–131; BP diastolic 37–63; PULSE 67–91; RESP 18–25; TEMP 37–37.9; O2SAT 89–97; BMI 34.5
--- NOTE | 2022-02-10 01:05 | ED.FALL ---
HPI - Fall General Chief Complaint: Fall Stated Complaint: GLF Time Seen by Provider: 02/09/22 22:25 Source: EMS Mode of arrival: EMS History of Present Illness HPI Narrative: The patient is 86-year-old male with recent history of obstructive sleep apnea, hypertension dyslipidemia prior stroke, COPD, CHF, BPH recent diagnosis of shingles with op so involvement presenting today with increasing falls weakness. He was seen and evaluated here yesterday for the same his initial diagnosis of shingles, the previously seen for pain rash did not present until yesterday. There was concern for V1 involvement the patient was transferred to [facility]. 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 There were pseudo dendritic lesions scattered around the cornea. Recommendation of valacyclovir 1 g p.o. t.i.d. for 10 days erythromycin ointment q.i.d. apply to lids and lesions inside the eye, brimonidine tid, cosopt tid and cool compresses. It was decided by the emergency department team that he did not meet admission criteria. Patient was discharged however outpatient care had been on arranged although daughter expressed significant concern that he would need more help than she is available to give him. This evening he apparently fell his legs are weak he is mildly confused, now requiring 1-2L of nc, not previously requiring oxygen. Patient currently has a very poor historian he is able to follow some commands the most history is received from [facility] records along with yesterday ED visit Related Data Home Medications Medication Instructions Recorded Confirmed cholecalciferol (vitamin D3) 50 2,000 unit PO DAILY 02/13/21 02/07/22 mcg (2,000 unit) capsule (Vitamin D3) Saccharomyces boulardii 250 mg 250 mg PO DAILY 11/02/21 02/07/22 capsule (Florastor) amlodipine 10 mg tablet 10 mg PO DAILY 11/02/21 02/07/22 melatonin 5 mg tablet 5 mg PO BEDTIME 11/02/21 02/07/22 Previous Rx's Medication Instructions Recorded pantoprazole 40 mg tablet,delayed 40 mg PO BID #180 tabs 08/28/21 release allopurinol 100 mg tablet 100 mg PO DAILY #90 tabs 10/23/21 atenolol 50 mg tablet 50 mg PO BID #180 tabs 10/23/21 tamsulosin 0.4 mg capsule 0.4 mg PO BEDTIME #90 caps 10/23/21 acetaminophen 325 mg tablet 650 mg PO Q6H PRN pain #1 tab 12/28/21 quetiapine 100 mg tablet 100 mg PO BID #60 tabs 01/07/22 prednisone 20 mg tablet 80 mg PO DAILY 30 days #120 tabs 02/02/22 ondansetron 4 mg disintegrating 4 mg PO DAILY PRN nausea and 02/03/22 tablet vomiting #30 tabs duloxetine 20 mg capsule,delayed 20 mg PO DAILY #90 caps 02/04/22 release potassium chloride 20 mEq 20 meq PO DAILY #90 tabs 02/04/22 tablet,extended release oxycodone-acetaminophen 5 mg-325 1 tab PO QID PRN pain #14 tabs 02/07/22 mg tablet (Percocet) Allergies Allergy/AdvReac Type Severity Reaction Status Date / Time No Known Drug Allergies Allergy Verified 02/07/22 10:21 Review of Systems Review of Systems ROS Unobtainable: Unobtainable due to medical condition Patient History Medical History (Updated 02/10/22 @ 18:25 by Kary Christian DO) Acquired hypothyroidism (09/16/16) Actinic keratosis Basal cell carcinoma 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) Colon polyps COVID-19 virus infection (01/24/22) CVA (cerebral vascular accident) Depression (06/29/15) Erectile dysfunction (02/12/16) Essential hypertension (06/29/15) Gout Hemorrhoids Hyperlipemia Insomnia Metabolic encephalopathy Obstructive sleep apnea Osteoarthritis Pneumonia due to COVID-19 virus Primary insomnia (09/16/16) 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 Surgical History History of ectropion repair (10/2017) Hx of surgical procedure Family History Family/Other Unknown family medical history Social History household members: none Smoking Status: Current some day smoker alcohol intake: current Smoking Status: Current every day smoker tobacco type: cigarettes alcohol intake frequency: 0-2 drinks per day Alcohol type: hard liquor Substance Use Type: does not use Exam Initial Vital Signs Initial Vital Signs: Vital Signs Temperature 100.0 F H 02/09/22 22:25 Pulse Rate 86 02/09/22 22:25 Respiratory Rate 18 02/09/22 22:25 Blood Pressure 144/65 H 02/09/22 22:25 Pulse Oximetry 97 02/09/22 22:25 Oxygen Delivery Method 02/09/22 22:25 Oxygen Flow Rate 2 02/09/22 22:25 GENERAL: Alert male appears uncomfortable HEENT: Head atraumatic,EOMI, pupils reactive, face symmetric, significant bilateral periorbital swelling and erythema. mucous membranes CARDIOVASCULAR: Regular rate and rhythm without murmurs, rubs or gallops. RESPIRATORY: Breath sounds equal bilaterally, no wheezes rales or rhonchi. ABDOMEN: Soft, nontender. Normoactive bowel sounds all 4 quadrants. No guarding or rebound. : No CVA tenderness EXTREMITIES: Normal range of motion, no clubbing or edema. Neurovascularly intact NEUROLOGICAL: Alert and oriented x2. [employer] strength equal bilateral Giselle wiggling both toes bilaterally SKIN: Shingle vesicular lesions noted on left side of face with surrounding erythema, bilateral eyelids a little swollen unable to open eye Course Orders Ordered: Acetaminophen (Acetaminophen 325 Mg Tablet) 650 mg PO Q6H PRN PRN Reason: pain Acyclovir (Acyclovir 5% Oint 15 Gm) 1 applic TOP QID [facility] Last Admin: 02/10/22 17:25 Dose: 1 applic Documented By: Admin: 02/10/22 14:10 Dose: 1 applic Documented By: RL Allopurinol (Allopurinol 100 Mg Tablet) 100 mg PO DAILY [facility] Last Admin: 02/10/22 10:20 Dose: 100 mg Documented By: CTS Amlodipine Besylate (Amlodipine 5 Mg Tablet) 10 mg PO DAILY [facility] Last Admin: 02/10/22 10:19 Dose: 10 mg Documented By: CTS Atenolol (Atenolol 50 Mg Tablet) 50 mg PO BID [facility] Last Admin: 02/10/22 10:21 Dose: 50 mg Documented By: CTS Cefazolin Sodium/Dextrose (Cefazolin 2 Gm/20 Ml Syringe) 2 gm IV Q8H [facility] Duloxetine HCl (Duloxetine 20 Mg Capsule) 20 mg PO DAILY [facility] Last Admin: 02/10/22 10:20 Dose: 20 mg Documented By: CTS Enoxaparin Sodium (Enoxaparin 40 Mg/0.4 Ml Syringe) 40 mg SUBCUT DAILY [facility] Last Admin: 02/10/22 10:23 Dose: 40 mg Documented By: CTS Erythromycin (Erythromycin Ophth 1 Gm Oint) 1 applic EYE-LEFT QID [facility] Last Admin: 02/10/22 17:26 Dose: 1 applic Documented By: Admin: 02/10/22 14:10 Dose: 1 applic Documented By: RL Dextrose/Sodium Chloride (Dextrose 5%-0.9% Ns) 1,000 mls @ 100 mls/hr IV CONT [facility] Last Admin: 02/10/22 15:51 Dose: 100 mls/hr Documented By: Infusion: 02/10/22 15:51 Dose: 100 mls/hr Documented By: Admin: 02/10/22 07:06 Dose: 100 mls/hr Documented By: YESSY Acyclovir 1,000 mg/ Dextrose 250 mls @ 250 mls/hr IV Q8H [facility] Last Infusion: 02/10/22 14:58 Dose: 0 mls/hr Documented By: Admin: 02/10/22 13:47 Dose: 250 mls/hr Documented By: DEANDRE Lactobacillus Acidophilus (Lactobacillus Acidophilus Tablet) 2 each PO BID [facility] Last Admin: 02/10/22 10:21 Dose: 2 each Documented By: CTS Melatonin (Melatonin 3 Mg Tablet) 6 mg PO BEDTIME [facility] Naloxone HCl (Naloxone 0.4 Mg/Ml Vial) 0.2 mg IV Q2MIN PRN PRN Reason: Opiate Reversal Ondansetron HCl (Ondansetron 4 Mg Odt) 4 mg PO DAILY PRN PRN Reason: nausea and vomiting Oxycodone/Acetaminophen (Oxycodone/Acetaminophen 5/325 Tablet) 1 tab PO QID PRN PRN Reason: pain Pantoprazole Sodium (Pantoprazole Dr 40 Mg Tablet) 40 mg PO BID [facility] Last Admin: 02/10/22 10:22 Dose: 40 mg Documented By: CTS Potassium Chloride (Potassium Chloride 20 Meq Tab) 20 meq PO DAILY [facility] Last Admin: 02/10/22 10:20 Dose: 20 meq Documented By: CTS Quetiapine Fumarate (Quetiapine 100 Mg Tablet) 100 mg PO BID [facility] Last Admin: 02/10/22 10:20 Dose: 100 mg Documented By: CTS Tamsulosin HCl (Tamsulosin 0.4 Mg Capsule) 0.4 mg PO BEDTIME [facility] Vitamin D (Cholecalciferol (Vitamin D3) 1,000 Unit Tablet) 2,000 unit PO DAILY [facility] Last Admin: 02/10/22 10:22 Dose: 2,000 unit Documented By: VERNON Discontinued Medications Acetaminophen (Acetaminophen Susp 650 Mg/20.3 Ml Udc) 650 mg PO NOW ONE Stop: 02/10/22 01:03 Last Admin: 02/10/22 01:06 Dose: 650 mg Documented By: YESSY Acyclovir (Acyclovir 5% Oint 15 Gm) 1 applic TOP TID [facility] Last Admin: 02/10/22 10:30 Dose: 1 applic Documented By: VERNON Cefazolin Sodium/Dextrose (Cefazolin 2 Gm/20 Ml Syringe) 2 gm IV Q8H [facility] Cefazolin Sodium/Dextrose (Cefazolin 2 Gm/20 Ml Syringe) 2 gm IV Q8H [facility] Last Admin: 02/10/22 15:44 Dose: 2 gm Documented By: CIRA Furosemide (Furosemide 40 Mg/4 Ml Vial) 20 mg IV NOW ONE Stop: 02/10/22 02:33 Last Admin: 02/10/22 03:33 Dose: 20 mg Documented By: YESSY Acyclovir 1,160 mg/ Dextrose 250 mls @ 250 mls/hr IV NOW ONE Stop: 02/10/22 01:27 Last Infusion: 02/10/22 04:50 Dose: 0 mls/hr Documented By: Admin: 02/10/22 03:36 Dose: 250 mls/hr Documented By: YESSY Ceftriaxone Sodium 2,000 mg/ (Sodium Chloride) 100 mls @ 200 mls/hr IV NOW ONE Stop: 02/10/22 01:27 Last Infusion: 02/10/22 03:00 Dose: 0 mls/hr Documented By: Admin: 02/10/22 01:57 Dose: 200 mls/hr Documented By: YESSY Sodium Chloride (Normal Saline 0.9%) 1,000 mls @ 150 mls/hr IV CONT [facility] Last Infusion: 02/10/22 13:41 Dose: 0 mls/hr Documented By: Infusion: 02/10/22 07:07 Dose: 0 mls/hr Documented By: Infusion: 02/10/22 07:05 Dose: 0 mls/hr Documented By: Admin: 02/10/22 01:55 Dose: 150 mls/hr Documented By: YESSY Acyclovir 1,000 mg/ Dextrose 250 mls @ 250 mls/hr IV Q8H [facility] Vital Signs Vital signs: Vital Signs - 8 hr 02/09/22 22:25 02/09/22 23:35 02/10/22 01:06 Temperature 100.0 F H 100.7 F H 100.3 F H Pulse Rate 86 Respiratory Rate 18 Blood Pressure 144/65 H Pulse Oximetry 97 Oxygen Delivery Method Nasal Cannula Oxygen Flow Rate 2 02/10/22 02:59 02/10/22 03:00 02/10/22 03:01 Temperature Pulse Rate 73 73 Respiratory Rate 24 24 Blood Pressure 123/58 L Pulse Oximetry 97 97 Oxygen Delivery Method Nasal Cannula Nasal Cannula Oxygen Flow Rate 2 2 02/10/22 03:01 02/10/22 03:30 02/10/22 03:30 Temperature Pulse Rate 74 72 Respiratory Rate 24 18 Blood Pressure 131/63 Pulse Oximetry 97 96 Oxygen Delivery Method Nasal Cannula Nasal Cannula Oxygen Flow Rate 2 2 02/10/22 04:00 02/10/22 04:01 02/10/22 04:01 Temperature Pulse Rate 78 80 Respiratory Rate 23 20 Blood Pressure 112/53 L Pulse Oximetry 95 95 Oxygen Delivery Method Oxygen Flow Rate 02/10/22 04:30 Temperature Pulse Rate 79 Respiratory Rate 23 Blood Pressure Pulse Oximetry 93 Oxygen Delivery Method Oxygen Flow Rate MDM - Fall Lab Data Result diagrams: 02/10/22 00:25 02/10/22 00:25 Labs: Lab Results 02/10/22 02/10/22 02/10/22 Range/Units 00:25 00:25 00:25 WBC 9.6 (4.5-11.0) X10^3/uL RBC 4.41 L (4.5-5.9) X10^6/uL Hgb 12.4 L (13.5-17.5) g/dL Hct 37.6 L (41-53) % MCV 85.3 (80-100) fL MCH 28.2 (26-34) PG MCHC 33.1 (30-36) % RDW 19.2 H (11.6-14.8) % Plt Count 111 L (150-400) X10^3/uL Neut % (Auto) 79.2 H (50-75) % Lymph % (Auto) 9.0 L (25-40) % [place] % (Auto) 11.2 (3-14) % Eos % (Auto) 0.3 L (2-4) % Baso % (Auto) 0.3 (0-2) % Neut # (Auto) 7600 H (4710-4163) /uL Lymph # (Auto) 900 L (6780-0109) /uL [place] # (Auto) 1100 H (0-900) /uL Eos # (Auto) 0 (0-450) /uL Baso # (Auto) 0 (0-100) /uL D-Dimer 857 H (<230) ng/mL Sodium 132 L (137-145) mmol/L Potassium 4.1 (3.4-5.1) mmol/L Chloride 92 L (98-107) mmol/L Carbon Dioxide 34 H (22-32) mmol/L BUN 24 H (9-20) mg/dL Creatinine 0.91 (0.66-1.25) mg/dL Estimated GFR > 60 (>60) mL/min BUN/Creatinine Ratio 26.4 H (6-22) Glucose 86 (80-110) mg/dL Lactate (0.7-2.1) mmol/L Calcium 8.5 (8.4-10.2) mg/dL Total Bilirubin 0.6 (0.2-1.3) mg/dL AST 44 (17-59) IU/L ALT 44 (<50) IU/L Alkaline Phosphatase 72 (38-126) U/L Total Creatine Kinase 21 L (55-170) U/L CK-MB (CK-2) TNP CK-MB (CK-2) Rel Index TNP Troponin I < 0.012 (0.01-0.034) ng/mL NT-Pro-B Natriuret Pep 1470 H (<450) pg/mL Total Protein 6.6 (6.3-8.2) g/dL Albumin 3.6 (3.5-5.0) g/dL Globulin 3.0 (1.7-4.1) g/dL Albumin/Globulin Ratio 1.2 (1.0-2.8) Lipase 173 (23-300) U/L Procalcitonin (<0.5) ng/mL Urine Color Urine Appearance Urine pH (4.5-8.0) Ur Specific [place] (1.000-1.035) Urine Protein (Negative) Urine Glucose (UA) (Negative) g/dL Urine Ketones (NEGATIVE) Urine Occult Blood (Negative) Urine Nitrate (Negative) Urine Bilirubin (NEGATIVE) Urine Urobilinogen (0.2) E.U./dL Ur Leukocyte Esterase (NEGATIVE) Urine RBC (0-5/HPF) Urine WBC (0-5/HPF) Urine Bacteria (None) Ur Culture Indicated? 02/10/22 02/10/22 02/10/22 Range/Units 00:25 00:25 03:25 WBC (4.5-11.0) X10^3/uL RBC (4.5-5.9) X10^6/uL Hgb (13.5-17.5) g/dL Hct (41-53) % MCV (80-100) fL MCH (26-34) PG MCHC (30-36) % RDW (11.6-14.8) % Plt Count (150-400) X10^3/uL Neut % (Auto) (50-75) % Lymph % (Auto) (25-40) % [place] % (Auto) (3-14) % Eos % (Auto) (2-4) % Baso % (Auto) (0-2) % Neut # (Auto) (3054-3243) /uL Lymph # (Auto) (9833-6435) /uL [place] # (Auto) (0-900) /uL Eos # (Auto) (0-450) /uL Baso # (Auto) (0-100) /uL D-Dimer (<230) ng/mL Sodium (137-145) mmol/L Potassium (3.4-5.1) mmol/L Chloride (98-107) mmol/L Carbon Dioxide (22-32) mmol/L BUN (9-20) mg/dL Creatinine (0.66-1.25) mg/dL Estimated GFR (>60) mL/min BUN/Creatinine Ratio (6-22) Glucose (80-110) mg/dL Lactate 1.3 (0.7-2.1) mmol/L Calcium (8.4-10.2) mg/dL Total Bilirubin (0.2-1.3) mg/dL AST (17-59) IU/L ALT (<50) IU/L Alkaline Phosphatase (38-126) U/L Total Creatine Kinase (55-170) U/L CK-MB (CK-2) CK-MB (CK-2) Rel Index Troponin I (0.01-0.034) ng/mL NT-Pro-B Natriuret Pep (<450) pg/mL Total Protein (6.3-8.2) g/dL Albumin (3.5-5.0) g/dL Globulin (1.7-4.1) g/dL Albumin/Globulin Ratio (1.0-2.8) Lipase (23-300) U/L Procalcitonin 0.23 (<0.5) ng/mL Urine Color Yellow Urine Appearance Clear Urine pH 5.0 (4.5-8.0) Ur Specific [place] 1.020 (1.000-1.035) Urine Protein 2+ H (Negative) Urine Glucose (UA) Negative (Negative) g/dL Urine Ketones Trace H (NEGATIVE) Urine Occult Blood 3+ H (Negative) Urine Nitrate Negative (Negative) Urine Bilirubin Negative (NEGATIVE) Urine Urobilinogen 0.2 (0.2) E.U./dL Ur Leukocyte Esterase Negative (NEGATIVE) Urine RBC 5-10/hpf H (0-5/HPF) Urine WBC None seen (0-5/HPF) Urine Bacteria None seen (None) Ur Culture Indicated? Cult not indicated Imaging Data CT scan - head: Radiologist's Impression: CT Scan Report Signed Patient: Klever George MR#: [id number] : 1935 Acct:[id number] Age/Sex: 86 / M Date of Service: 02/09/22 Loc: ED Accession Number: [id number] ?? Procedure: CT head/brain wo con Ordering Provider: Kary Christian D.O. PROCEDURE:? CT HEAD/BRAIN WO CON ? INDICATIONS:? fall? ? TECHNIQUE:? Noncontrast 4.5 mm thick angled axial sections acquired from the foramen magnum to the vertex, with coronal and sagittal reformats.? For radiation dose reduction, the following was used:? automated exposure control, adjustment of mA and/or kV according to patient size.? ? COMPARISON:? [facility], CT, CT HEAD/BRAIN WO CON, 02/08/2022, 14:16.? [facility], CT, CT HEAD/BRAIN WO CON, 12/24/2021, 12:29. ? FINDINGS:? Image quality:? Excellent.? ? CSF spaces:? Basal cisterns are patent.? No extra-axial fluid collections.? The ventricles are symmetric in size and shape.? ? Brain:? No intracranial bleeds or masses.? There is cerebral volume loss for age, with resultant ventricular and sulcal prominence.? There are periventricular and deep white matter chronic small vessel ischemic changes.? There is intracranial internal carotid artery atherosclerosis.? ? Skull and face:? Calvarium and visualized facial bones appear intact, without suspicious lesions.? ? Sinuses:? Visualized sinuses and mastoids are clear.? ? IMPRESSION:? No trauma found. ? ? Dictated by: Raul Honeycutt M.D. on 02/10/2022 at 0:08 ? ? Approved by: Raul Honeycutt M.D. on 02/10/2022 at 0:08 ? Chest x-ray: Radiologist's Impression: Signed Patient: Klever George MR#: [id number] : 1935 Acct:[id number] Age/Sex: 86 / M Date of Service: 02/09/22 Loc: ED Accession Number: [id number] ?? Procedure: XR chest 1V Ordering Provider: Kary Christian D.O. PROCEDURE:? XR CHEST 1V ? INDICATIONS:? short of breath? ? TECHNIQUE:? One view of the chest was acquired.? ? COMPARISON:? [facility], CR, XR CHEST 1V, 02/08/2022, 12:06.? [facility], CR, XR CHEST 1V, 01/24/2022, 11:17. ? FINDINGS:? ? Surgical changes and devices:? None.? ? Lungs and pleura:? Lungs are abnormal with an interstitial prominence present also 01/24/22 and 02/08/22.? No pleural effusions or pneumothorax.? ? Mediastinum:? Mediastinal contours appear normal.? Heart size is normal.? ? Bones and chest wall:? No suspicious bony lesions.? Overlying soft tissues appear unremarkable.? ? IMPRESSION:? Interstitial prominence, to the degree that atypical/viral pneumonia may be present.? Focal consolidative pneumonia is not seen. ? ? Dictated by: Raul Honeycutt M.D. on 02/10/2022 at 0:06 ? ? CT scan - chest: Radiologist's Impression: Signed Patient: Klever George MR#: [id number] : 1935 Acct:[id number] Age/Sex: 86 / M Date of Service: 02/10/22 Loc: 90D-1 Accession Number: [id number] ?? Procedure: CT angio chest PE protocol Ordering Provider: Kary Christian D.O. PROCEDURE:? CT ANGIO CHEST PE PROTOCOL ? INDICATIONS:? hypoxia high dimer ? TECHNIQUE:? After the administration of intravenous contrast, 2 mm thick sections acquired from the pulmonary apices to the posterior costophrenic angles.? For radiation dose reduction, the following was used:? automated exposure control, adjustment of mA and/or kV according to patient size.? ? COMPARISON:? [facility], CT, CT ANGIO CHEST PE PROTOCOL, 11/02/2021, 0:15. ? FINDINGS:? Image quality:? Excellent.? ? Pulmonary arteries:? Pulmonary arteries are normal in size, and demonstrate no intraluminal filling defects to suggest central pulmonary embolism.? ? Lungs and pleura:? Minimal left basilar atelectasis and or infiltrate associated with elevated left hemidiaphragm. ? Mediastinum:? Heart size is normal, without pericardial effusion.? No mediastinal or hilar adenopathy.? Thoracic aorta is normal in caliber and enhancement.? Esophagus is normal in caliber, without hiatal hernia.? ? Bones and chest wall:? No suspicious bony lesions.? Ribs and thoracic spine appear intact throughout.? Thyroid gland unremarkable.? No axillary or supraclavicular adenopathy.? ? Abdomen:? Visualized upper abdominal solid organs appear normal in the early arterial phase of enhancement.? ? IMPRESSION:? ? 1. No evidence of pulmonary embolism, aortic dissection or aneurysm. ? 2. Elevated left hemidiaphragm and associated atelectasis and or infiltrate. ? Note:? Final report is concordant with preliminary interpretation by [employer] ? Approved by: Dontrell Nowak M.D. on 02/10/2022 at 6:45? ECG Data Interpretation: Normal sinus rhythm rate 69 IN interval 154 QRS [address] changes persistent Q-wave in lead 3 and persistent T-wave inversions similar to previous EKG January 24 [facility] Narrative Medical decision making narrative: Patient does have significant shingles which includes V1. He has significant swelling he is falling. He likely has an underlying cellulitis as well. At this time he will need admission. He is given IV acyclovir and Rocephin. He is now requiring oxygen 1-2 L which he was not previously. BNP is elevated at 1400. He does have history of CHF. He got 1 dose of Lasix which he urinated with. He is in no acute respiratory distress but is hypoxic at 89% on room air. Dr. Bauer in ED to see and evaluate patient. He accepts Discharge Plan Departure Patient Disposition: Admitted As Inpatient Clinical Impression: Shingles Qualifiers: Herpes zoster complications: with ocular involvement Herpes zoster ocular complication detail: keratitis Qualified Code(s): B02.33 - Zoster keratitis Cellulitis Qualifiers: Site of cellulitis: face Qualified Code(s): L03.211 - Cellulitis of face Admit Date/Time: 02/10/22 04:30 Admit Provider: Estuardo Small
[2022-02-10] MEDS: ACETAMINOPHEN SUSP 650 MG/20.3 ML UDC PO (01:06)
[2022-02-10 01:54] LABS: Add Manual Diff / Slide Review NO; Basophils Absolute Auto 0 /uL (0-100); Basophils Percent Auto 0.3 % (0-2); D Dimer 857 ng/mL (<230); Eosinophils Absolute Auto 0 /uL (0-450); Eosinophils Percent Auto 0.3 % (2-4); Hematocrit 37.6 % (41-53); Hemoglobin 12.4 g/dL (13.5-17.5); Lymphocytes Absolute Auto 900 /uL (1100-4500); Mean Corpuscular HGB Conc 33.1 % (30-36); Mean Corpuscular Hemoglobin 28.2 PG (26-34); Mean Corpuscular Volume 85.3 fL (80-100); Monocytes Absolute Auto 1100 /uL (0-900); Monocytes Percent Auto 11.2 % (3-14); Neutrophils Absolute Auto 7600 /uL (1500-7000); Neutrophils Percent Auto 79.2 % (50-75); Platelet Count 111 X10^3/uL (150-400); Red Blood Cell Count 4.41 X10^6/uL (4.5-5.9); Red Cell Distribution Width 19.2 % (11.6-14.8); White Blood Cell Count 9.6 X10^3/uL (4.5-11.0)
[2022-02-10] MEDS: SODIUM CHLORIDE 0.9% 1,000 ML 150 ML IV (01:55)
[2022-02-10] MEDS: cefTRIAXone 2,000 MG in SODIUM CHLORIDE 0.9% 100 ML 200 MG IV (01:57)
[2022-02-10 02:01] LABS: Lactate (Lactic Acid) 1.3 mmol/L (0.7-2.1)
[2022-02-10 02:02] LABS: Alanine Aminotransferase 44 IU/L (<50); Albumin 3.6 g/dL (3.5-5.0); Albumin Globulin Ratio 1.2 (1.0-2.8); Alkaline Phosphatase 72 U/L (38-126); Aspartate Aminotransferase 44 IU/L (17-59); BUN Creatinine Ratio 26.4 (6-22); Bilirubin Total 0.6 mg/dL (0.2-1.3); Blood Urea Nitrogen 24 mg/dL (9-20); Calcium 8.5 mg/dL (8.4-10.2); Carbon Dioxide 34 mmol/L (22-32); Creatine Kinase 21 U/L (55-170); Estimated Glomerular Filt Rate > 60 mL/min (>60); Glucose 86 mg/dL (80-110); HEMOLYSIS < 15 (0-50); Lipase 173 U/L (23-300); Total Protein 6.6 g/dL (6.3-8.2)
[2022-02-10 02:13] LABS: Chloride 92 mmol/L (98-107); Potassium 4.1 mmol/L (3.4-5.1); Sodium 132 mmol/L (137-145)
[2022-02-10 02:19] LABS: Procalcitonin 0.23 ng/mL (<0.5)
[2022-02-10 02:24] LABS: NT-proBNP (BNP-Adult 18+) 1470 pg/mL (<450); Troponin I < 0.012 ng/mL (0.01-0.034)
[2022-02-10] MEDS: FUROSEMIDE 40 MG/4 ML VIAL 20 MG IV (03:33)
[2022-02-10] MEDS: ACYCLOVIR IV (03:36)
[2022-02-10] MEDS: WATER IV (03:36)
[2022-02-10] MEDS: DEXTROSE 5% IV (03:36)
[2022-02-10 03:38] LABS: Appearance Urine UA CLEAR; Bilirubin Urine UA NEGATIVE (NEGATIVE); Color Urine UA YELLOW; Glucose Urine UA NEGATIVE (Negative); Ketones Urine UA TRACE (NEGATIVE); Leukocyte Esterase Urine UA NEGATIVE (NEGATIVE); Nitrite Urine UA NEGATIVE (Negative); Occult Blood Urine UA 3+ (Negative); Protein Urine UA 2+ (Negative); Urobilinogen Urine UA 0.2 E.U./dL (0.2)
[2022-02-10 04:11] LABS: Bacteria Urine None Seen; Culture Indicated Urine Cult Not Indicated; RBC Urine 5-10/HPF (0-5/HPF); WBC Urine None Seen (0-5/HPF)
--- NOTE | 2022-02-10 04:29 | DI.CT.S_ITS ---
PROCEDURE: CT ANGIO CHEST PE PROTOCOL INDICATIONS: hypoxia high dimer TECHNIQUE: After the administration of intravenous contrast, 2 mm thick sections acquired from the pulmonary apices to the posterior costophrenic angles. For radiation dose reduction, the following was used: automated exposure control, adjustment of mA and/or kV according to patient size. COMPARISON: [facility], [place], CT ANGIO CHEST PE PROTOCOL, 11/02/2021, 0:15. FINDINGS: Image quality: Excellent. Pulmonary arteries: Pulmonary arteries are normal in size, and demonstrate no intraluminal filling defects to suggest central pulmonary embolism. Lungs and pleura: Minimal left basilar atelectasis and or infiltrate associated with elevated left hemidiaphragm. Mediastinum: Heart size is normal, without pericardial effusion. No mediastinal or hilar adenopathy. Thoracic aorta is normal in caliber and enhancement. Esophagus is normal in caliber, without hiatal hernia. Bones and chest wall: No suspicious bony lesions. Ribs and thoracic spine appear intact throughout. Thyroid gland unremarkable. No axillary or supraclavicular adenopathy. Abdomen: Visualized upper abdominal solid organs appear normal in the early arterial phase of enhancement. IMPRESSION: 1. No evidence of pulmonary embolism, aortic dissection or aneurysm. 2. Elevated left hemidiaphragm and associated atelectasis and or infiltrate. Note: Final report is concordant with preliminary interpretation by [employer] Approved by: Dontrell Nowak M.D. on 02/10/2022 at 6:45
--- NOTE | 2022-02-10 05:11 | P.HP_ITS ---
History of Present Illness History of Present Illness Date Patient Seen: 02/10/22 Time Patient Seen: 05:12 Chief complaint: GLF Narrative: This is an 86-year-old male with hypertension, sleep apnea, hyperlipidemia, prior stroke, gout and CHF who presents with severe facial cellulitis and zoster keratitis. He is quite sound asleep and hard of hearing so is unable to participate in the history. Information is obtained from the ED physician's notes and other hospital records. He was apparently diagnosed with left-sided facial shingles and pain several days ago and was sent to [facility] to be seen there by Ophthalmology who diagnosed zoster keratitis and ocular hypertension, placing him on valacyclovir 1 g t.i.d. for 10 days and erythromycin ointment 4 t imes a day. He returns overnight here with a temperature of 100.3?, unable to open his eyes, unable to care for himself, stand without falling, with increasing weakness per family. On exam today he has a florid/extreme facial cellulitis with shingles vesicles all the way from the tip of the nose to the top of the left forehead. Both his eyes are swollen shut. His head CT is negative. The white blood count is 9.6. The D-dimer is 157. His chest x-ray suggests interstitial pneumonia but is not definitive. A CTA of the chest is pending. He appears very dehydrated and hard of hearing. 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 Surgical History History of ectropion repair (10/2017) Hx of surgical procedure Family & Social History Family History Family/Other Unknown family medical history Social History: household members none Tobacco & Substance use: Tobacco type cigarettes Smoking Status Current every day smoker alcohol intake current alcohol intake frequency 0-2 drinks per day Substance Use Type does not use Meds Home Medications and Allergies Home Medications Medication Instructions Recorded Confirmed Type cholecalciferol (vitamin D3) 50 2,000 unit PO DAILY 02/13/21 02/07/22 History mcg (2,000 unit) capsule (Vitamin D3) pantoprazole 40 mg tablet,delayed 40 mg PO BID #180 tabs 08/28/21 02/07/22 Rx release allopurinol 100 mg tablet 100 mg PO DAILY #90 tabs 10/23/21 02/07/22 Rx atenolol 50 mg tablet 50 mg PO BID #180 tabs 10/23/21 02/07/22 Rx tamsulosin 0.4 mg capsule 0.4 mg PO BEDTIME #90 caps 10/23/21 02/07/22 Rx Saccharomyces boulardii 250 mg 250 mg PO DAILY 11/02/21 02/07/22 History capsule (Florastor) amlodipine 10 mg tablet 10 mg PO DAILY 11/02/21 02/07/22 History melatonin 5 mg tablet 5 mg PO BEDTIME 11/02/21 02/07/22 History acetaminophen 325 mg tablet 650 mg PO Q6H PRN pain #1 tab 12/28/21 02/07/22 Rx quetiapine 100 mg tablet 100 mg PO BID #60 tabs 01/07/22 02/07/22 Rx prednisone 20 mg tablet 80 mg PO DAILY 30 days #120 tabs 02/02/22 02/07/22 Rx ondansetron 4 mg disintegrating 4 mg PO DAILY PRN nausea and 02/03/22 02/07/22 Rx tablet vomiting #30 tabs duloxetine 20 mg capsule,delayed 20 mg PO DAILY #90 caps 02/04/22 02/07/22 Rx release potassium chloride 20 mEq 20 meq PO DAILY #90 tabs 02/04/22 02/07/22 Rx tablet,extended release oxycodone-acetaminophen 5 mg-325 1 tab PO QID PRN pain #14 tabs 02/07/22 02/07/22 Rx mg tablet (Percocet) Allergies Allergy/AdvReac Type Severity Reaction Status Date / Time No Known Drug Allergies Allergy Verified 02/07/22 10:21 Review of Systems Review of Systems Narrative: Positive for facial swelling/redness/eyelid closure/weakness/falls Negative for fevers, chills, coughing, shortness of breath, chest pain, abdominal pain, nausea, vomiting, bleeding, rashes other than the face, dysuria, seizures, sore throat, new allergies Exam Vital Signs (past 8 hours): - 02/09/22 22:25 02/09/22 23:35 02/10/22 01:06 Temperature 100.0 F H 100.7 F H 100.3 F H Pulse Rate 86 Respiratory Rate 18 Blood Pressure 144/65 H Pulse Oximetry 97 Oxygen Delivery Method Nasal Cannula Oxygen Flow Rate 2 02/10/22 02:59 02/10/22 03:00 02/10/22 03:01 Temperature Pulse Rate 73 73 Respiratory Rate 24 24 Blood Pressure 123/58 L Pulse Oximetry 97 97 Oxygen Delivery Method Nasal Cannula Nasal Cannula Oxygen Flow Rate 2 2 02/10/22 03:01 02/10/22 03:30 02/10/22 03:30 Temperature Pulse Rate 74 72 Respiratory Rate 24 18 Blood Pressure 131/63 Pulse Oximetry 97 96 Oxygen Delivery Method Nasal Cannula Nasal Cannula Oxygen Flow Rate 2 2 Oxygen Delivery Method Nasal Cannula Oxygen Flow Rate 2 Narrative Exam Narrative: The patient is obtunded, asleep early in the morning and is very hard of hearing so does not wake up to my attempts. He does not appear to be in any distress. Both eyes are swollen shut. Extraocular muscles and sclera appearance cannot be assessed. He was described as having dendritic/pseudo dendritic changes on his eyes yesterday. Throat/oral exam is limited but appears to show very dry mucous membranes. No lymph nodes are felt head, neck, supraclavicular area There is no thyromegaly JVD is less than 6 cm No carotid bruits are heard heart Heart is regular rate and rhythm without murmur Lungs are clear to auscultation bilaterally Abdomen is very obese, nontender, no organomegaly, bowel sounds are active Extremities have no ankle edema Skin has no rash or jaundice other than the florid swelling/pink/red changes with vesicles covering the entire left upper face, involving the tip of the nose to the top of the forehead. Neurological exam: There is no obvious tremor, motor function cannot be accurately tested but there is no obvious lateralizing defect DTRs are symmetrically hypoactive Cranial nerve testing is also limited but there is no facial drooping. Objective Labs Result Diagrams: 02/10/22 00:25 02/10/22 00:25 Labs: Laboratory Results - last 24 hr 02/10/22 02/10/22 02/10/22 00:25 00:25 00:25 WBC 9.6 RBC 4.41 L Hgb 12.4 L Hct 37.6 L MCV 85.3 MCH 28.2 MCHC 33.1 RDW 19.2 H Plt Count 111 L Neut % (Auto) 79.2 H Lymph % (Auto) 9.0 L [place] % (Auto) 11.2 Eos % (Auto) 0.3 L Baso % (Auto) 0.3 Neut # (Auto) 7600 H Lymph # (Auto) 900 L [place] # (Auto) 1100 H Eos # (Auto) 0 Baso # (Auto) 0 D-Dimer 857 H Sodium 132 L Potassium 4.1 Chloride 92 L Carbon Dioxide 34 H BUN 24 H Creatinine 0.91 Estimated GFR > 60 BUN/Creatinine Ratio 26.4 H Glucose 86 Lactate Calcium 8.5 Total Bilirubin 0.6 AST 44 ALT 44 Alkaline Phosphatase 72 Total Creatine Kinase 21 L CK-MB (CK-2) TNP CK-MB (CK-2) Rel Index TNP Troponin I < 0.012 NT-Pro-B Natriuret Pep 1470 H Total Protein 6.6 Albumin 3.6 Globulin 3.0 Albumin/Globulin Ratio 1.2 Lipase 173 Procalcitonin Urine Color Urine Appearance Urine pH Ur Specific [place] Urine Protein Urine Glucose (UA) Urine Ketones Urine Occult Blood Urine Nitrate Urine Bilirubin Urine Urobilinogen Ur Leukocyte Esterase Urine RBC Urine WBC Urine Bacteria Ur Culture Indicated? 02/10/22 02/10/22 02/10/22 00:25 00:25 03:25 WBC RBC Hgb Hct MCV MCH MCHC RDW Plt Count Neut % (Auto) Lymph % (Auto) [place] % (Auto) Eos % (Auto) Baso % (Auto) Neut # (Auto) Lymph # (Auto) [place] # (Auto) Eos # (Auto) Baso # (Auto) D-Dimer Sodium Potassium Chloride Carbon Dioxide BUN Creatinine Estimated GFR BUN/Creatinine Ratio Glucose Lactate 1.3 Calcium Total Bilirubin AST ALT Alkaline Phosphatase Total Creatine Kinase CK-MB (CK-2) CK-MB (CK-2) Rel Index Troponin I NT-Pro-B Natriuret Pep Total Protein Albumin Globulin Albumin/Globulin Ratio Lipase Procalcitonin 0.23 Urine Color Yellow Urine Appearance Clear Urine pH 5.0 Ur Specific [place] 1.020 Urine Protein 2+ H Urine Glucose (UA) Negative Urine Ketones Trace H Urine Occult Blood 3+ H Urine Nitrate Negative Urine Bilirubin Negative Urine Urobilinogen 0.2 Ur Leukocyte Esterase Negative Urine RBC 5-10/hpf H Urine WBC None seen Urine Bacteria None seen Ur Culture Indicated? Cult not indicated Assessment & Plan Assessment & Plan narrative: This is an 86-year-old male with hypertension, sleep apnea, hyperlipidemia, prior stroke, gout and CHF who presents with severe facial cellulitis and zoster keratitis. He is now falling, weak, unable to open his eyes and care for himself. Severe zoster keratitis, present on admission. Active. -worsening rash based on comparison to recent e.d. pictures. -continue antiviral treatment with IV acyclovir, the planned duration was 10 days of oral valacyclovir, which is not on formulary. -IV cefazolin for concurrent bacterial superinfection cellulitis. -recently was initiated on high-dose prednisone in the ED but this was not continued by Ophthalmology. Hold for now. Worsening weakness and pseudo blindness, present on admission. Active. -multiple contributing factors including swollen eyelids with pseudo blindness, baseline weakness from multiple medical conditions and recent steroid treatment. Left facial cellulitis, present on admission. Active. -IV acyclovir and IV cefazolin -white blood count 9.6 Congestive heart failure, present on admission. Chronic. -BNP 1470 -cautious IV hydration as he appears very dehydrated on oral mucosa examination. Hypertension, present on admission. Chronic. -continue amlodipine and atenolol Hyperlipidemia, present on admission. Chronic. -no current treatment Gout, present on admission. Chronic. -continue allopurinol Depression, present on admission. Chronic. -continue quetiapine and duloxetine Benign prostatic hypertrophy, present on admission. Chronic. -continue tamsulosin Unable to establish a backup decision maker as the patient is unable to cooperate in any discussions at this hour. Lovenox for DVT prevention Time Spent With Patient Critical Care time: I spent a total of [] minutes of critical care time on this patient's care tod ay; this time is exclusive of procedural time.
[2022-02-10] MEDS: DEXTROSE 5%-0.9% NS 1,000 ML 100 ML IV ×2 (07:06→15:51)
[2022-02-10 07:46] LABS: COVID19 -Nasal RAPID Negative (Negative)
[2022-02-10] MEDS: AMLODIPINE 5 MG TABLET 10 MG PO (10:19)
[2022-02-10] MEDS: POTASSIUM CHLORIDE 20 MEQ TAB PO (10:20)
[2022-02-10] MEDS: DULOXETINE 20 MG CAPSULE PO (10:20)
[2022-02-10] MEDS: allopurinoL 100 MG TABLET PO (10:20)
[2022-02-10] MEDS: QUETIAPINE 100 MG TABLET PO ×2 (10:20→20:18)
[2022-02-10] MEDS: LACTOBACILLUS ACIDOPHILUS TABLET 2 EACH PO ×2 (10:21→20:18)
[2022-02-10] MEDS: atenoloL 50 MG TABLET PO ×2 (10:21→20:18)
[2022-02-10] MEDS: PANTOPRAZOLE DR 40 MG TABLET PO ×2 (10:22→20:18)
[2022-02-10] MEDS: CHOLECALCIFEROL (VITAMIN D3) 1,000 UNIT TABLET 2000 UNIT PO (10:22)
[2022-02-10] MEDS: ENOXAPARIN 40 MG/0.4 ML SYRINGE SUBCUT (10:23)
[2022-02-10] MEDS: ACYCLOVIR 5% OINT 15 GM 1 APPLIC TOP ×4 (10:30→20:21)
--- NOTE | 2022-02-10 12:07 | PM.PN.1 ---
Subjective Subjective Date Patient Seen: 02/10/22 Interval history: 86-year-old gentleman with hypertension, obstructive sleep apnea, hyperlipidemia, prior stroke, gout, and congestive heart failure who was admitted earlier this morning with severe left-sided facial cellulitis and herpes zoster keratitis. Patient does awaken for me and states that he has had difficulty with shingles/rash for several days. It is difficult to obtain history from him as he is at times mumbling incoherently. He will follow some directions but frequently will not answer questions. Per history and physical, patient was seen at [facility] by Ophthalmology and was diagnosed with herpes zoster keratitis and ocular hypertension. He was placed on valacyclovir for 10 days and erythromycin ointment 4 times daily. He was unable to care for himself at home, had increased weakness, and low-grade fever and subsequently was admitted to the hospitalist service early this morning. Patient denies being hungry or thirsty at this time. I am unable to obtain additional history from him. Exam Vital Signs (past 8 hours): - 02/10/22 04:30 02/10/22 04:31 02/10/22 04:31 Temperature Pulse Rate 79 80 Respiratory Rate 23 25 H Blood Pressure 105/55 L Pulse Oximetry 93 94 Oxygen Delivery Method 02/10/22 05:06 02/10/22 05:30 02/10/22 05:45 Temperature 98.6 F Pulse Rate 75 77 Respiratory Rate 23 Blood Pressure Pulse Oximetry 96 89 L Oxygen Delivery Method Room Air Oxygen Delivery Method Room Air Oxygen Flow Rate 2 Narrative Exam Narrative: GEN: Somnolent and confused elderly male, arouses and mumbles as noted above, otherwise NAD HEENT:NC, patient has some mild right lower eyelid edema, left eye is swollen shut, conjunctiva is brightly erythematous/injected, zoster rash with some crusted and oozing lesions noted to the left upper eyelid, forehead, scalp, temporal region, left nasal bridge and tip of the nose, patient cannot spontaneously open his eye CHEST: Respiratory excursions symmetric, diminished but CTAB CV: RRR, no M/R/G ABD: Soft, obese, NT/ND, BT present in all 4 quadrants, no organomegaly or masses appreciated EXTR: warm, well perfused, no C/C, [place] nonpitting edema noted to the bilateral lower extremities SKIN: warm and dry, no rash NEURO: Somnolent and confused as noted, otherwise nonfocal Objective Labs Result Diagrams: 02/10/22 00:25 02/10/22 00:25 Labs: Laboratory Results - last 24 hr 02/10/22 02/10/22 02/10/22 00:25 00:25 00:25 WBC 9.6 RBC 4.41 L Hgb 12.4 L Hct 37.6 L MCV 85.3 MCH 28.2 MCHC 33.1 RDW 19.2 H Plt Count 111 L Neut % (Auto) 79.2 H Lymph % (Auto) 9.0 L [place] % (Auto) 11.2 Eos % (Auto) 0.3 L Baso % (Auto) 0.3 Neut # (Auto) 7600 H Lymph # (Auto) 900 L [place] # (Auto) 1100 H Eos # (Auto) 0 Baso # (Auto) 0 D-Dimer 857 H Sodium 132 L Potassium 4.1 Chloride 92 L Carbon Dioxide 34 H BUN 24 H Creatinine 0.91 Estimated GFR > 60 BUN/Creatinine Ratio 26.4 H Glucose 86 Lactate Calcium 8.5 Total Bilirubin 0.6 AST 44 ALT 44 Alkaline Phosphatase 72 Total Creatine Kinase 21 L CK-MB (CK-2) TNP CK-MB (CK-2) Rel Index TNP Troponin I < 0.012 NT-Pro-B Natriuret Pep 1470 H Total Protein 6.6 Albumin 3.6 Globulin 3.0 Albumin/Globulin Ratio 1.2 Lipase 173 Procalcitonin Urine Color Urine Appearance Urine pH Ur Specific [place] Urine Protein Urine Glucose (UA) Urine Ketones Urine Occult Blood Urine Nitrate Urine Bilirubin Urine Urobilinogen Ur Leukocyte Esterase Urine RBC Urine WBC Urine Bacteria Ur Culture Indicated? SARS-CoV-2 (PCR) 02/10/22 02/10/22 02/10/22 00:25 00:25 03:25 WBC RBC Hgb Hct MCV MCH MCHC RDW Plt Count Neut % (Auto) Lymph % (Auto) [place] % (Auto) Eos % (Auto) Baso % (Auto) Neut # (Auto) Lymph # (Auto) [place] # (Auto) Eos # (Auto) Baso # (Auto) D-Dimer Sodium Potassium Chloride Carbon Dioxide BUN Creatinine Estimated GFR BUN/Creatinine Ratio Glucose Lactate 1.3 Calcium Total Bilirubin AST ALT Alkaline Phosphatase Total Creatine Kinase CK-MB (CK-2) CK-MB (CK-2) Rel Index Troponin I NT-Pro-B Natriuret Pep Total Protein Albumin Globulin Albumin/Globulin Ratio Lipase Procalcitonin 0.23 Urine Color Yellow Urine Appearance Clear Urine pH 5.0 Ur Specific [place] 1.020 Urine Protein 2+ H Urine Glucose (UA) Negative Urine Ketones Trace H Urine Occult Blood 3+ H Urine Nitrate Negative Urine Bilirubin Negative Urine Urobilinogen 0.2 Ur Leukocyte Esterase Negative Urine RBC 5-10/hpf H Urine WBC None seen Urine Bacteria None seen Ur Culture Indicated? Cult not indicated SARS-CoV-2 (PCR) 02/10/22 07:20 WBC RBC Hgb Hct MCV MCH MCHC RDW Plt Count Neut % (Auto) Lymph % (Auto) [place] % (Auto) Eos % (Auto) Baso % (Auto) Neut # (Auto) Lymph # (Auto) [place] # (Auto) Eos # (Auto) Baso # (Auto) D-Dimer Sodium Potassium Chloride Carbon Dioxide BUN Creatinine Estimated GFR BUN/Creatinine Ratio Glucose Lactate Calcium Total Bilirubin AST ALT Alkaline Phosphatase Total Creatine Kinase CK-MB (CK-2) CK-MB (CK-2) Rel Index Troponin I NT-Pro-B Natriuret Pep Total Protein Albumin Globulin Albumin/Globulin Ratio Lipase Procalcitonin Urine Color Urine Appearance Urine pH Ur Specific [place] Urine Protein Urine Glucose (UA) Urine Ketones Urine Occult Blood Urine Nitrate Urine Bilirubin Urine Urobilinogen Ur Leukocyte Esterase Urine RBC Urine WBC Urine Bacteria Ur Culture Indicated? SARS-CoV-2 (PCR) Negative [facility] Medical History (Updated 02/10/22 @ 06:29 by Estuardo Small MD) Acquired hypothyroidism (09/16/16) Actinic keratosis Basal cell carcinoma 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) Colon polyps COVID-19 virus infection (01/24/22) CVA (cerebral vascular accident) Depression (06/29/15) Erectile dysfunction (02/12/16) Essential hypertension (06/29/15) Gout Hemorrhoids Hyperlipemia Insomnia Metabolic encephalopathy Obstructive sleep apnea Osteoarthritis Pneumonia due to COVID-19 virus Primary insomnia (09/16/16) 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 Severe periorbital herpes zoster outbreak and keratitis Reportedly, patient has had worsening symptoms since his initial evaluation. Plan was in place for 10 days of oral valacyclovir. He was placed on IV acyclovir here. Patient is empirically being covered with [employer]. This will be continued. He was evidently placed on high-dose prednisone during his initial visit to the emergency department but this was discontinued per Ophthalmology at that time. 2. Worsening weakness and reported pseudo blindness Likely secondary to blurred vision from zoster as well as swelling. Will monitor carefully. He is a high fall risk. 3. Congestive heart failure Chronic, unknown if systolic or diastolic. BNP was 1470 on admission. Gentle IV hydration planned. Discontinue fluids when patient is taking adequate oral liquid 4. Hypertension Remains on amlodipine and atenolol. In the emergency department, blood pressure was 105/55. 5. Gout Continue allopurinol 6. Hyperlipidemia Presently untreated 7. Depression Continue quetiapine and duloxetine. 8. BPH Continue tamsulosin 9. Prior stroke Unclear as to his baseline cognitive status. Will attempt to contact family to determine. 10. Obstructive sleep apnea And certain if he uses CPAP at baseline. We will also attempt to confirm with family. Code status Full Prophylaxis On Lovenox Disposition Presently pending Time Spent With Patient Critical Care time: I spent a total of [] minutes of critical care time on this patient's care today; this time is exclusive of procedural time.
[2022-02-10] MEDS: ACYCLOVIR 1,000 MG in DEXTROSE 5% IN WATER 250 ML 250 MG IV ×2 (13:47→20:16)
[2022-02-10] MEDS: ERYTHROMYCIN OPHTH 1 GM OINT 1 APPLIC EYE-LEFT ×3 (14:10→20:18)
--- NOTE | 2022-02-10 15:18 | CM.DANOTE ---
Initial Discharge Planning Assessment: Case received. EMR reviewed. Spoke with daughter Nessa over the phone to collect information ([phone]). Patient currently in bed 90D-1. PCP: Larry Roman Payer: [facility] [employer] 86 year old admitted 02/10/2022 for severe Zoster keratitis to left face including eye, nose to forehead and a bacterial infection superimposed. He is on IV antibiotics and IV Acyclovir. He apparently has been declining since onset of shingles last mid-week and was seen in ED on 02/08 [address] transferred [facility] ED. After their assessment, patient returned to home on 02/09. He tolerated only 3 hour of being at home and the daughter called 911 due to patient's declining status with fever. He was taken to ED and admitted. Patient lives in own home in [place] with caregivers 4 times a week from 2-4 hours a day. Aftab Szymanski lives down the street and assists as needed with caregiving, home management, transportation. At baseline patient has some cognitive impairment and is able to conduct simple ADLs. He ambulates with a walker and has O2 in home for PRN use which he rarely does. P: Most likely patient when medically stable would discharge to SNF: Daughter Nessa's choices are [facility], [facility] or [facility]. Patient has [place] insurance will need PASSR. AXEL onofre Discharge Planning/Care Management CM Discharge Assessment Start: 02/10/22 14:34 Freq: Status: Active Protocol: Document 02/10/22 15:05 (Rec: 02/10/22 15:18 [id number]) Discharge Planning Assessment Assigned Ingot Supervisor Kika Pérez RN/KENP Advance Directives? Yes Advance Directives on File Yes History Provided By Family Member,Medical Record Has Patient been admitted in last 30 No days? Prior Living Arrangements House Comment Lives in own home 4 days a week caregivers 2-4 hours a day Aftab Szymanski lives down street and able to help as needed. Household Members none Comment see above Type of transporation used prior to Relies on Others admit Independent with ADL's No: caregivers help, indep in some adls Is patient alert and oriented? No Needs Assistance With Bathing,Grooming,Meal Prep, Managing Medications,Home Chores / Shopping Caregiver for Another No Community Services used prior to Oxygen Therapy admission: Comment has oxygen in home but rarely uses, [facility] provides DME Already Rented / Owned Elevated Toilet Seat,FWW / Walker,Cane,Oxygen Comment sleeps in recliner Patient/Family Preference [facility] Facility Comment Patient extremely weak, most likely will need SNF upon discharge. Has been to [facility] and [facility] in past. Comment Unknown. Patient currently very compromised and being worked up now. Discharge Plan [facility] Transportation Arrangement to be determined Whiteboard Updated in Patient Room with No name and ext. # of Ingot Supervisor Comment patient in ED being boarded at this time Review Status In Process Next Review Type Continued Stay Review
[2022-02-10] MEDS: CEFAZOLIN 2 GM/20 ML SYRINGE IV ×2 (15:44→21:54)
[2022-02-10 18:07] LABS: INR 1.1 (0.9-1.3); Prothrombin Time 12.5 SECONDS (10.1-12.7)
[2022-02-10 18:09] LABS: PTT Partial Thromboplastin Tim 27 SECONDS (26.4-36.2)
[2022-02-10] MEDS: MELATONIN 3 MG TABLET 6 MG PO (20:17)
[2022-02-10] MEDS: TAMSULOSIN 0.4 MG CAPSULE PO (20:19)
[2022-02-10] MEDS: ACETAMINOPHEN 325 MG TABLET 650 MG PO (21:48)
[2022-02-11] VITALS (8 sets, daily range): BP systolic 116–136; BP diastolic 50–60; PULSE 63–86; RESP 16–21; TEMP 36.2–37.4; O2SAT 91–97
[2022-02-11] MEDS: DEXTROSE 5%-0.9% NS 1,000 ML 100 ML IV (02:43)
[2022-02-11] MEDS: ACYCLOVIR 1,000 MG in DEXTROSE 5% IN WATER 250 ML 250 MG IV ×3 (04:06→21:27)
[2022-02-11 05:43] LABS: BUN Creatinine Ratio 22.6 (6-22); Blood Urea Nitrogen 19 mg/dL (9-20); Calcium 7.6 mg/dL (8.4-10.2); Carbon Dioxide 30 mmol/L (22-32); Chloride 97 mmol/L (98-107); Estimated Glomerular Filt Rate > 60 mL/min (>60); Glucose 122 mg/dL (80-110); HEMOLYSIS < 15 (0-50); Potassium 3.8 mmol/L (3.4-5.1); Sodium 131 mmol/L (137-145)
[2022-02-11] MEDS: CEFAZOLIN 2 GM/20 ML SYRINGE IV ×2 (05:47→14:09)
[2022-02-11 07:04] LABS: Hematocrit 33.4 % (41-53); Mean Corpuscular HGB Conc 32.9 % (30-36); Mean Corpuscular Hemoglobin 28.5 PG (26-34); Mean Corpuscular Volume 86.5 fL (80-100); Platelet Count 103 X10^3/uL (150-400); Red Blood Cell Count 3.86 X10^6/uL (4.5-5.9); Red Cell Distribution Width 19.3 % (11.6-14.8)
[2022-02-11 07:08] LABS: Add Manual Diff / Slide Review YES
[2022-02-11 07:52] LABS: Neutrophils Absolute Manual 4900 /uL (3000-5900); Total Cells Counted 100
[2022-02-11 07:53] LABS: Anisocytosis 2+
[2022-02-11] MEDS: ENOXAPARIN 40 MG/0.4 ML SYRINGE SUBCUT (09:30)
[2022-02-11] MEDS: QUETIAPINE 100 MG TABLET PO ×2 (09:30→21:55)
[2022-02-11] MEDS: POTASSIUM CHLORIDE 20 MEQ TAB PO (09:31)
[2022-02-11] MEDS: AMLODIPINE 5 MG TABLET 10 MG PO (09:31)
[2022-02-11] MEDS: CHOLECALCIFEROL (VITAMIN D3) 1,000 UNIT TABLET 2000 UNIT PO (09:31)
[2022-02-11] MEDS: allopurinoL 100 MG TABLET PO (09:31)
[2022-02-11] MEDS: DULOXETINE 20 MG CAPSULE PO (09:31)
[2022-02-11] MEDS: PANTOPRAZOLE DR 40 MG TABLET PO ×2 (09:31→21:33)
[2022-02-11] MEDS: atenoloL 50 MG TABLET PO ×2 (09:31→21:31)
[2022-02-11] MEDS: LACTOBACILLUS ACIDOPHILUS TABLET 2 EACH PO ×2 (09:32→21:30)
[2022-02-11] MEDS: ACYCLOVIR 5% OINT 15 GM 1 APPLIC TOP ×3 (09:32→16:57)
[2022-02-11] MEDS: ERYTHROMYCIN OPHTH 1 GM OINT 1 APPLIC EYE-LEFT ×4 (09:32→21:32)
--- NOTE | 2022-02-11 11:42 | DI.MRI.S_ITS ---
PROCEDURE: MR HEAD/BRAIN WO/W CON INDICATIONS: zoster, evidence of encephalitis? TECHNIQUE: Noncontrast axial T1 spin echo, axial T2 fast spin echo, sagittal and axial FLAIR, coronal T2 fast spin echo, axial gradient echo, axial diffusion and ADC through the brain. After the administration of contrast, axial and coronal and sagittal 3D VIBE or T1 spin echo with fat saturation through the brain. COMPARISON: None. FINDINGS: Severe global cerebral volume loss and severe chronic microvascular ischemic changes. Encephalomalacia and gliosis in the right anterior frontal lobe consistent with prior infarct or hemorrhage. There is no abnormal signal or enhancement within the mesial temporal lobes, basal ganglia, or insular regions to suggest herpetic encephalitis. The major intracranial vascular flow-related signal voids are maintained. No restricted diffusion to indicate recent ischemia. There are no findings of mass effect, midline shift, or abnormal extra-axial fluid collection. The ventricular system and basilar cisterns are patent. Midline structures are normal in configuration. No unexpected intracranial enhancement or susceptibility. IMPRESSION: No acute intracranial finding. Specifically, no MR findings of herpes encephalitis. Dictated by: Gilson Bustamante M.D. on 02/11/2022 at 15:58 Approved by: Gilson Bustamante M.D. on 02/11/2022 at 16:01
--- NOTE | 2022-02-11 12:04 | P.PN_ITS ---
Subjective Subjective Date Patient Seen: 02/11/22 Time Patient Seen: 10:00 Interval history: He is lethargic and confused this morning. He responds to voice, but is only intermittently intelligble. He denies pain or shortness of breath. When I walk into the room his sats are 97% on 5L o2. Exam Vital Signs (past 8 hours): - 02/11/22 05:30 02/11/22 07:35 02/11/22 08:00 Temperature 99.1 F 99.3 F Pulse Rate 79 63 Respiratory Rate 20 16 18 Blood Pressure 136/51 L 133/58 L Pulse Oximetry 91 96 97 Oxygen Delivery Method Nasal Cannula Oxygen Flow Rate 4 5 0 02/11/22 07:00 Temperature Pulse Rate Respiratory Rate Blood Pressure Pulse Oximetry Oxygen Delivery Method Nasal Cannula Oxygen Flow Rate Oxygen Delivery Method Nasal Cannula Oxygen Flow Rate 0 Narrative Exam Narrative: GEN: lethargic, confused, responds to voice but speech is difficut to understand HEENT: right eyelid mild swelling, left eye is swollen and shut with erythematou s conjunctiva, rash with crusted and oozing lesions to left eyelid, forehead, scalp, nasal involvement on tip and left side CHEST: diminished but clear bilaterally CV: regular rate and rhythm, with no murmurs EXTR: brawny edema, nonpitting bilaterally SKIN: rash as described above NEURO: Somnolent and confused but no focal deficits notedl Objective Labs Result Diagrams: 02/11/22 06:50 02/11/22 05:15 Labs: Laboratory Results - last 24 hr 02/10/22 02/11/22 02/11/22 12:37 05:15 06:50 WBC 7.0 RBC 3.86 L Hgb 11.0 L Hct 33.4 L MCV 86.5 MCH 28.5 MCHC 32.9 RDW 19.3 H Plt Count 103 L Neut % (Auto) Not Reportable Lymph % (Auto) Not Reportable [place] % (Auto) Not Reportable Eos % (Auto) Not Reportable Baso % (Auto) Not Reportable Lymph # (Auto) Not Reportable [place] # (Auto) Not Reportable Baso # (Auto) Not Reportable Total Counted 100 Seg Neutrophils % 66.0 Band Neutrophils % 4.0 Lymphocytes % (Manual) 8.0 L Atypical Lymphs % 1.0 H Monocytes % (Manual) 18.0 H Eosinophils % (Manual) 2.0 Metamyelocytes % 1.0 H Neutrophils # (Manual) 4900 RBC Morphology See below Anisocytosis 2+ H PT 12.5 INR 1.1 APTT 27 Sodium 131 L Potassium 3.8 Chloride 97 L Carbon Dioxide 30 BUN 19 Creatinine 0.84 Estimated GFR > 60 BUN/Creatinine Ratio 22.6 H Glucose 122 H Calcium 7.6 L PFSH Medical History (Updated 02/10/22 @ 18:25 by Kary Christian DO) Acquired hypothyroidism (09/16/16) Actinic keratosis Basal cell carcinoma 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) Colon polyps COVID-19 virus infection (01/24/22) CVA (cerebral vascular accident) Depression (06/29/15) Erectile dysfunction (02/12/16) Essential hypertension (06/29/15) Gout Hemorrhoids Hyperlipemia Insomnia Metabolic encephalopathy Obstructive sleep apnea Osteoarthritis Pneumonia due to COVID-19 virus Primary insomnia (09/16/16) 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 Zoster keratitis and severe facial zoster -patient returned to hospital unable to care for self -plan on dc was 10 days of oral valacyclovir, on IV acyclovir here -empirically covered with ancef for concern for bacterial superinfection -prednisone was stopped by [facility] [place] [facility] -with confusion ordered MRI brain for eval for encephalitis, after this will plan for LP 2. Worsening weakness, confusion and reported pseudo blindness -likely secondary to multiple chronic illnesses, acutely worsened with severe zoster -he is fall risk -checked abg as has history of hypercarbia with pco2 of 50 and ph 7.39 appears to be compensated and unlikely cause of symptoms -goal o2 sat 90-93% 3. Congestive heart failure -chronic, diastolic -careful with IV fluids, stop for now -lasix IV as needed 4. Hypertension -continue amlodipine, atenolol 5. Gout Continue allopurinol 6. Hyperlipidemia Presently untreated 7. Depression Continue quetiapine and duloxetine. 8. BPH Continue tamsulosin 9. History of CVA -continue to monitor 10. Obstructive sleep apnea -cpap if able Code status Full Prophylaxis On Lovenox Disposition Presently pending Time Spent With Patient Critical Care time: I spent a total of [] minutes of critical care time on this patient's care today; this time is exclusive of procedural time. Quality VTE Deep Vein Thrombosis/Pulmonary Embolism Present on Admission: No
[2022-02-11 12:08] LABS: Fractionated Inspired Oxygen 24; HCO3 ABG 31 mmol/L (22-26); Oxygen Saturation ABG 90 % (95-100); PCO2 ABG 50.8 mmHg (35-45); PO2 ABG 61 mmHg (80-100); TCO2 ABG 32 mmol/L (21-31); pH ABG 7.39 (7.35-7.45)
--- NOTE | 2022-02-11 13:37 | CM.DPC ---
DCP Cont: Per MD, pt remains confused below his baseline and at admission was having some hallucinations and making a little progress but to have MRI and then possible LP to determine if pt has underlying encephalopathy or further medical needs. PT/OT ordered to attempt to work with pt after MRI to determine possible d/c needs as pt currently has loss of vision in his eyes as they were swollen and with Zostra Keratitis and facial cellulitis. Per Dtr yesterday, aware that pt may need SNF at d/c as he resides alone near her and has CG 4 days a week for 2-4 hrs a day and if pt does not make significant progress then can likely not d/c home from the hospital. Preference for SNF had been [facility], [facility], and [facility]. SW called [facility] admissions and discussed pt and after review they determined due to pt's current shingles in an area that cannot safely be wrapped and covered, pt would need a private room for precautions and currently they do not have any open private rooms but will continue to follow in case a room becomes available further into the week. SW called [facility] admissions and provided new referral and they have some available beds and willing to review and SW faxed referral via [facility] to [facility]. SW called [facility] admissions with new referral, currently they may not have any open beds for 2-3 days but willing to review as unclear when pt may be stable for d/c. SW sent referral via [facility]. No request for [facility] auth yet as pt still needs to work with PT/OT and determine POC based on MRI and possible LP. PASRR completed. Plan: SW to follow closely for PT/OT eval and recommendations to determine SNF vs home with Dtr and CG assist. SW to follow for beds and review by [facility], [facility], [facility] and fax [facility] for SNF auth if SNF needed at d/c. LINDA Garnett
--- NOTE | 2022-02-11 15:08 | OT.IPNOTE ---
Chart reviewed and nursing consulted. Pt is lethargic and unable to participate in activity at this time. Will hold and follow up tomorrow.
--- NOTE | 2022-02-11 15:30 | PT-IP ANOTE ---
Received PT orders, reviewed the chart, and discussed with pt's RN. Pt is too lethargic to meaningfully participate in PT evaluation this PM. Will follow up Friday.
--- NOTE | 2022-02-11 17:05 | PC.NURSE ---
Pt is AxOx4, independent and cooperative. VSS, pt denies pain. Pt is eating well and sleeping between care. LLE still very swollen and redness but it is getting better than before. Otherwise, no change. Continue monitor.
--- NOTE | 2022-02-11 18:22 | PC.NURSE ---
Pt is AxOx1-2, VSS, pt denies pain. Pt has been sleepy all day till 17:30. Pt declined breakfast, and lunch but ate some dinner. Pt had MRI done but LP is going to be done tomorrow. Pt woke up around after 5 pm and c/o his bed and wanted to sleep on reclined. Pt has L BM. Todd is draining nataly color urine. Pt is now RA and sats low 90s which is ok with pt because of his COPD. Continued contact precaution. No other changes.
[2022-02-11] MEDS: TAMSULOSIN 0.4 MG CAPSULE PO (21:33)
[2022-02-11] MEDS: MELATONIN 3 MG TABLET 6 MG PO (21:33)
[2022-02-12] MEDS: CEFAZOLIN 2 GM/20 ML SYRINGE IV ×3 (00:09→15:19)
[2022-02-12 05:00] VITALS: BP 130/58; PULSE 75; RESP 20; TEMP 36.7; O2SAT 89
[2022-02-12] MEDS: ACYCLOVIR 1,000 MG in DEXTROSE 5% IN WATER 250 ML 250 MG IV ×2 (05:06→13:53)
[2022-02-12 07:19] LABS: Hematocrit 34.7 % (41-53); Hemoglobin 11.3 g/dL (13.5-17.5); Mean Corpuscular HGB Conc 32.5 % (30-36); Mean Corpuscular Hemoglobin 27.9 PG (26-34); Mean Corpuscular Volume 85.8 fL (80-100); Platelet Count 134 X10^3/uL (150-400); Red Blood Cell Count 4.05 X10^6/uL (4.5-5.9); Red Cell Distribution Width 18.6 % (11.6-14.8); White Blood Cell Count 7.2 X10^3/uL (4.5-11.0)
[2022-02-12 07:28] LABS: BUN Creatinine Ratio 16.7 (6-22); Blood Urea Nitrogen 13 mg/dL (9-20); Calcium 7.8 mg/dL (8.4-10.2); Carbon Dioxide 32 mmol/L (22-32); Chloride 98 mmol/L (98-107); Estimated Glomerular Filt Rate > 60 mL/min (>60); Glucose 113 mg/dL (80-110); HEMOLYSIS 18 (0-50); Potassium 3.4 mmol/L (3.4-5.1); Sodium 134 mmol/L (137-145)
[2022-02-12 10:00] VITALS: BP 122/57; PULSE 77; RESP 18; TEMP 36.2; O2SAT 91
--- NOTE | 2022-02-12 10:11 | PC.NURSE ---
Addendum entered by Riri Mcgrath R.N. 02/12/22 17:58: Patients l.eye creams and ointments applied. Patient has sat up for the second half of the shift and tolerated well. Addendum entered by Riri Mcgrath R.N. 02/12/22 14:40: Patient refused his lumbar puncture earlier, he had a hard time lying prone and he complained of pain. Test was cancelled. Patients daughter Huma in to visit and has been asking him if he wants to have the lumbar puncture and she has been explaining it to him. Per patient states that he just wants to go naturally if he were to pass away. Explained to daughter as well. Dr is planning on talking to patient while she is here visiting. Original Note: Patient is alert and oriented x2, he denies pain to the left side of his face. Patient has scabbed areas to his left upper face and eye. Area is red and crusty. He is getting eye gtts and oral antibiotics. Patient is going down to his lumbar puncture in just a bit, meds will all be given when patient gets back. He is signing a consent at this time.
[2022-02-12] MEDS: CHOLECALCIFEROL (VITAMIN D3) 1,000 UNIT TABLET 2000 UNIT PO (11:10)
[2022-02-12] MEDS: atenoloL 50 MG TABLET PO ×2 (11:10→21:19)
[2022-02-12] MEDS: POTASSIUM CHLORIDE 20 MEQ TAB 40 MEQ PO (11:11)
[2022-02-12] MEDS: DULOXETINE 20 MG CAPSULE PO (11:11)
[2022-02-12] MEDS: QUETIAPINE 100 MG TABLET PO ×2 (11:11→21:19)
[2022-02-12] MEDS: allopurinoL 100 MG TABLET PO (11:12)
[2022-02-12] MEDS: PANTOPRAZOLE DR 40 MG TABLET PO ×2 (11:12→21:19)
[2022-02-12] MEDS: AMLODIPINE 5 MG TABLET 10 MG PO (11:12)
[2022-02-12] MEDS: ENOXAPARIN 40 MG/0.4 ML SYRINGE SUBCUT (11:12)
[2022-02-12] MEDS: LACTOBACILLUS ACIDOPHILUS TABLET 2 EACH PO ×2 (11:12→21:19)
[2022-02-12] MEDS: ERYTHROMYCIN OPHTH 1 GM OINT 1 APPLIC EYE-LEFT ×3 (11:13→21:19)
--- NOTE | 2022-02-12 12:00 | PT.IIE ---
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) Surgical History (Last Reviewed 02/10/22 @ 01:24 by Kary Christian DO) History of ectropion repair (10/2017) Hx of surgical procedure Medical History (Last Updated 02/10/22 @ 06:29 by Estuardo Small MD) Acquired hypothyroidism (09/16/16) Actinic keratosis Basal cell carcinoma 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) Colon polyps COVID-19 virus infection (01/24/22) CVA (cerebral vascular accident) Depression (06/29/15) Erectile dysfunction (02/12/16) Essential hypertension (06/29/15) Gout Hemorrhoids Hyperlipemia Insomnia Metabolic encephalopathy Obstructive sleep apnea Osteoarthritis Pneumonia due to COVID-19 virus Primary insomnia (09/16/16) 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 Physical Therapy Inpatient Evaluation/Re-Eval M1 PT/OT-IP Prior Functional Status Start: 02/12/22 12:02 Freq: NEEDED Status: Active Protocol: Document 02/12/22 12:00 DLM (Rec: 02/12/22 12:19 DLM [id number]) Medical Review Prior Functional Status Medical History Reviewed Yes Diet/Fluid Consistency Regular Communication WNL Mobility and Gait ambulates with FWW Activities of Daily Living and IADL's caregiver assist 4 day/week for 2-4 hours at a time Prior Functional Level (Other details) Hernandez is not able to give much information about his baseline at this time Social History Household Members none Living Arrangements House Number of Floors (Floors) One Floor Number of Stairs To Enter/Railing? steps to enter, he could not give number or details Home Equipment Front Wheel Walker,Raised Toilet Seat w/Armrests Employment Status Retired Additional Social History Comment home oxygen, sleeps in recliner Pt discharged home from [facility] but returned to ED the same day. Chart notes indicate he has been declining since getting shingles. M2 PT-IP Current Condition Start: 02/12/22 12:02 Freq: NEEDED Status: Active Protocol: Document 02/12/22 12:00 DLM (Rec: 02/12/22 12:19 DLM [id number]) Physical Therapy Current Condition Current Condition Evaluation Date 02/12/22 Treatment Diagnosis weakness, impaired mobility/ gait Onset Date 02/10/22 M3 PT-IP Subjective Start: 02/12/22 12:02 Freq: NEEDED Status: Active Protocol: Document 02/12/22 12:00 DLM (Rec: 02/12/22 12:19 DL [id number]) Subjective Physical Therapy Visit Type Type Initial Evaluation Visit Start Time 11:30 Visit Stop Time 12:00 Total Visit Minutes 30 Number of GAS ADJUSTER Visits 0 Physical Therapy Visit Comments Patient Comments He is worried about being able to talk to his Daughter. He does not like to be rushed. Patient Goals He is not able to state Therapy Pain Assessment Pain When Pain Assessed At Rest Pain Present Pain Present Denied Pain M4 PT-IP Mobility and Gait Start: 02/12/22 12:02 Freq: NEEDED Status: Active Protocol: Document 02/12/22 12:00 DLM (Rec: 02/12/22 12:19 DL [id number]) PT-Bed Mobility Assessment Supine to Sit Supine to Sit Standby Assistance Scooting Scooting to Edge of Bed Minimal Assistance PT-Transfer Assessment Sit to and From Stand Sit to and from Stand Contact Guard Assistance,Use of Upper Extremities Equipment Transfer Assistive Device Gait Belt,Front Wheeled Walker Transfers Transfer Destination Chair,Bedside Commode Transfer Technique Stand Step Pivot Transfer Ability Level of Assist Contact Guard Assistance,Use of Upper Extremities Comments Mobility Comments At start of visit but is attempting to sit up around the bed rail on edge of bed. He was aware he needed to have BM once up moving and had loose stool on the bedside commode. He agreed to sit up in the recliner. Chair alarm on for safety. Pt given warm blankets per his request. Call light and phone close. Gait Assessment Gait Gait Assistance Required: Contact Guard Assist Distance (Feet) 2 Assistive Devices Assistive Device Gait Belt,Front Wheeled Walker Factors Limiting Gait Function Factors Limiting Gait Function Decreased Activity Tolerance, Decreased Strength Comments Gait Comments he declined further gait at this time Stair Climbing Assessment Comments Stair Climbing Comments he reports having steps to enter house but not ready for stair training at this time PT-Balance Assessment Sitting Balance and Reactions Static Sitting Balance Ability Good Dynamic Sitting Balance Ability Good Standing Balance and Reactions Static Standing Balance Ability Good Dynamic Standing Balance Ability Fair Device Used FWW M5 PT-IP Objective Assessments Start: 02/12/22 12:02 Freq: NEEDED Status: Active Protocol: Document 02/12/22 12:00 DLM (Rec: 02/12/22 12:19 DL [id number]) Orientation Orientation/Cognition Level of Alertness Lethargic Orientation Name,Situation Language Function Ability No Deficits Noted Safety Awareness Decreased Safety Awareness Memory Description Short Term Impaired Comments He denies vision changes but left eye swollen and draining. He is unable or not willing to give information about his prior level of function. Gross Range of Motion Upper Extremity ROM Assessment Within Functional Limits Lower Extremity ROM Assessment Within Functional Limits Strength Upper Extremity Strength Assessment Bilaterally Impaired Lower Extremity Strength Assessment Bilaterally Impaired Comments Strength Comments generalized weakness throughout, pt not willing to participate in manual muscle testing with complaints of not feeling well Coordination Assessment Gross Coordination Gross Coordination WNL Sensation Assessment Comments Sensation Comments he denies changes, skin on distal LE's is discolored and dry Muscle Tone Muscle Tone WNL Yes M6 PT-IP Treatment Start: 02/12/22 12:02 Freq: NEEDED Status: Active Protocol: Document 02/12/22 12:00 DLM (Rec: 02/12/22 12:19 [facility] [id number]) Physical Therapy Treatment Education Education Provided Safety Other Treatments Other Treatment Performed pt up to recliner with nursing aware M7 PT-IP Assessment and Plan Start: 02/12/22 12:02 Freq: NEEDED Status: Active Protocol: Document 02/12/22 12:00 DLM (Rec: 02/12/22 12:19 DL [id number]) PT Summary Assessment and Plan Potential Rehabilitation Potential Fair Status of Condition at Evaluation Evolving Summary: Hernandez is alert but gets tired easily. He intermittently closes his eyes when sitting or lying even during conversation. He agreed to get up to the bedside commode and to sit up in the recliner but declined further ambulation. Pt was left up in the recliner. He complains of not feeling well and feeling weak but his complaints are general and he can not get more specific. He appears to be significantly below his prior level of function and he is not safe to return home alone at this time. He will need 24/7 physical assistance. His family is not present today to discuss discharge issues. Recommend SNF rehab at discharge to assist in his recovery. Impairments Strength,Balance,Cognition,Bed Mobility,Transfers,Gait, Activity Tolerance Goals Bed Mobility Goal Standby Assistance Transfer Goal Standby Assistance,Front Wheeled Walker Gait Goal Standby Assistance,Front Wheel Walker Gait Distance 150 feet Other Goals Up and down 3 steps with rail and CG assist in preparation for going home Days to Meet Goals 7 Frequency of Treatment Frequency Of Treatment Once a Day Treatment Plan Physical Therapy Treatment Plan Bed Mobility Training,Transfer Training,Gait Training, Therapeutic Exercise,Balance Retraining,Discharge Planning, Neuromuscular Re-ed Precautions Other Precautions high fall risk at this time Recommendations To Nursing Amount of Assist Needed 1 Person Assist Discharge Recommendations PT Discharge Recommendations SNF Rehab Other Discharge Recommendations he would need 24/ assist to return home Transportation Needs at Discharge Private Vehicle,Wheelchair/ Cabulance
[2022-02-12] MEDS: POTASSIUM CHLORIDE 20 MEQ TAB PO (12:27)
[2022-02-12] MEDS: ACYCLOVIR 5% OINT 15 GM 1 APPLIC TOP ×3 (12:28→21:18)
--- NOTE | 2022-02-12 13:55 | PM.PN.1 ---
Subjective Subjective Interval history: pt is aler, awake and orineted to name, place Exam Vital Signs (past 8 hours): - 02/12/22 10:00 Temperature 97.2 F L Pulse Rate 77 Respiratory Rate 18 Blood Pressure 122/57 L Pulse Oximetry 91 Oxygen Delivery Method Room Air Oxygen Flow Rate 0 Const General: cooperative and well developed Orientation: alert, awake, oriented to person and oriented to place HENNY Head: normal to inspection Ears: external ears normal Mouth: oral mucosae normal Eyes Pupils: PERRL EOM: EOM intact bilaterally Neck Neck: normal visual inspection and full ROM Resp Effort & Inspection: normal respiratory effort Auscultation: clear to auscultation bilaterally Cardio Rate: regular rate Rhythm: regular rhythm GI Palpation: soft and no hepatosplenomegaly Auscultation: normal bowel sounds Skin General: no rashes or lesions noted Neuro General: patient alert, patient awake, patient oriented x3, moves all extremities and no focal motor deficits Speech: speech normal Extrem General: normal to inspection, full ROM and no pedal edema Psych Appearance: grossly normal Objective Labs Result Diagrams: 02/12/22 07:08 02/12/22 07:08 Labs: Laboratory Results - last 24 hr 02/12/22 02/12/22 07:08 07:08 WBC 7.2 RBC 4.05 L Hgb 11.3 L Hct 34.7 L MCV 85.8 MCH 27.9 MCHC 32.5 RDW 18.6 H Plt Count 134 L Sodium 134 L Potassium 3.4 Chloride 98 Carbon Dioxide 32 BUN 13 Creatinine 0.78 Estimated GFR > 60 BUN/Creatinine Ratio 16.7 Glucose 113 H Calcium 7.8 L [facility] Medical History (Updated 02/10/22 @ 18:25 by Kary Christian DO) Acquired hypothyroidism (09/16/16) Actinic keratosis Basal cell carcinoma 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) Colon polyps COVID-19 virus infection (01/24/22) CVA (cerebral vascular accident) Depression (06/29/15) Erectile dysfunction (02/12/16) Essential hypertension (06/29/15) Gout Hemorrhoids Hyperlipemia Insomnia Metabolic encephalopathy Obstructive sleep apnea Osteoarthritis Pneumonia due to COVID-19 virus Primary insomnia (09/16/16) 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 Labs: Laboratory Results - last 24 hr ? 02/10/22 02/11/22 02/11/22 ? 12:37 05:15 06:50 WBC ? ? ?7.0 RBC ? ? ?3.86 L Calcium ? ?7.6 L ? Altered mental status likely secondary to multiple etiologies -pt refused LP , MRI unremarkable for acute changes -continue telemetry monitoring Acute herpes Zoster -continue acyclovir and abx , steroids Debility/Weakness complicated with poor vision now and as above -PT/OT CHF diastolic -continue lasix IV as needed Hypertension -continue amlodipine, atenolol Gout - continue allopurinol Hyperlipidemia - no meds Depression - continue quetiapine , duloxetine. BPH -continue tamsulosin H/O CVA -stable -continue telemetry NATTY - CPAP Code status: Full ( pt expressed feeling to be changed to DNR - will confirm with POA) Prophylaxis: Lovenox Time Spent With Patient Critical Care time: I spent a total of [] minutes of critical care time on this patient's care today; this time is exclusive of procedural time. Quality VTE Deep Vein Thrombosis/Pulmonary Embolism Present on Admission: No
[2022-02-12 14:00] VITALS: BP 100/42; PULSE 69; RESP 17; TEMP 36.1; O2SAT 94
--- NOTE | 2022-02-12 15:22 | OT.IPNOTE ---
Pt a bit confused and having difficulty to open his eyes , especially his left eye which is swollen. Nursing aware that pt is confused and does not know how to use the call light. Pt content sitting in the recliner. To check on the pt tomorrow for OT sy.
[2022-02-12 18:00] VITALS: BP 114/51; PULSE 75; RESP 17; TEMP 36.2; O2SAT 96
[2022-02-12 20:44] VITALS: BP 129/54; PULSE 69; RESP 15; TEMP 36.4; O2SAT 89
[2022-02-12] MEDS: MELATONIN 3 MG TABLET 6 MG PO (21:19)
[2022-02-12] MEDS: TAMSULOSIN 0.4 MG CAPSULE PO (21:20)
[2022-02-13] VITALS (8 sets, daily range): BP systolic 104–148; BP diastolic 52–67; PULSE 62–82; RESP 15–22; TEMP 36.1–36.9; O2SAT 92–98
[2022-02-13] MEDS: ACYCLOVIR 1,000 MG in DEXTROSE 5% IN WATER 250 ML 250 MG IV (00:08)
[2022-02-13] MEDS: CEFAZOLIN 2 GM/20 ML SYRINGE IV ×2 (01:48→10:10)
[2022-02-13 07:31] LABS: BUN Creatinine Ratio 12.4 (6-22); Blood Urea Nitrogen 17 mg/dL (9-20); Calcium 7.9 mg/dL (8.4-10.2); Carbon Dioxide 30 mmol/L (22-32); Chloride 102 mmol/L (98-107); Estimated Glomerular Filt Rate 50 mL/min (>60); Glucose 100 mg/dL (80-110); HEMOLYSIS 76 (0-50); Magnesium 1.8 mg/dL (1.6-2.3); Sodium 136 mmol/L (137-145)
--- NOTE | 2022-02-13 09:44 | PT.IPTN ---
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) Physical Therapy Treatment Note M2 PT-IP Current Condition Start: 02/12/22 12:02 Freq: NEEDED Status: Active Protocol: Document 02/13/22 09:29 SP (Rec: 02/13/22 11:58 SP [id number]) Physical Therapy Current Condition Current Condition Evaluation Date 02/12/22 Treatment Diagnosis weakness, impaired mobility/ gait Onset Date 02/10/22 M3 PT-IP Subjective Start: 02/12/22 12:02 Freq: NEEDED Status: Active Protocol: Document 02/13/22 09:29 SP (Rec: 02/13/22 11:58 SP [id number]) Subjective Physical Therapy Visit Type Type Treatment Note Visit Start Time 09:29 Visit Stop Time 09:44 Total Visit Minutes 15 Number of SURGICAL TERRITORY MANAGER Visits 1 Physical Therapy Visit Comments Patient Comments Pt agreeable to working with therapy. He was seated at EOB with R[employer] AND MISCELLANEOUS REMITTANCE CLERK in room, called for assist. Therapy Pain Assessment Pain When Pain Assessed During Mobility Pain Present Pain Present Pain Reported Location Buttock Scale Used not quantified Pain Behaviors Facial Grimacing,Wincing Pain Management Techniques Distraction,Modification of Treatment,Re-positioning M4 PT-IP Mobility and Gait Start: 02/12/22 12:02 Freq: NEEDED Status: Active Protocol: Document 02/13/22 09:29 SP (Rec: 02/13/22 11:58 SP [id number]) PT-Bed Mobility Assessment Scooting Scooting to Edge of Bed Moderate Assistance PT-Transfer Assessment Sit to and From Stand Sit to and from Stand Minimal Assistance,Use of Upper Extremities Equipment Transfer Assistive Device Gait Belt,Front Wheeled Walker Orthotic/Prosthetic Devices or Brace: No Transfers Transfer Destination Chair Transfer Technique pt ambulated using FWW Transfer Ability Level of Assist Contact Guard Assistance,Use of Upper Extremities Comments Mobility Comments Pt seated EOB without LE support on floor with RENT AND MISCELLANEOUS REMITTANCE CLERK in room when arrived. Education to pt for safety need use of gait belt for out of bed mobility hospital policy, agreed post ed. Pt completed scoot to EOB Mod A for pelvis advancement each side and max cues for wt shift forward and use of bed rail/ UE WB on bed. Sit>stand Mod A x1 with cues for quad fac coming to standing, heavy WB on FWW, unable to redirect push from bed for safety stable fWW, CG FWW for stability. Gait to bench and back to chair 10 ft CG- Min A for trunk stability, max cues for back up fully with FWW and reach back prior to sit, Min A sit due to decreased strength flop into chair. CGA Sit>stand from chair pushing from chair arms, gait to PF step end bed 5 ft, max cues for positioning FWW facing step. Min A for completion step mgt wtih FWW, completed gait back to chair 10 ft CG- Johnathon and max cues motor planning backing up to chair fully w/ FWW, tends to put FWW off to side requiring increase physical support. Cued proper hand placement then reduced to CGA descend to sit in chair. Pt demonstrates increase respiratory rate during mobility, cues for slow breath and pacing mobility. Pt is not safe mobility without 1 person assist with decreased strength and Max cues for safety mobility, high fall risk and why recommending 17/03 if goes home vs SNF for improvement in strength for funtional mobility independence. Gait Assessment Gait Gait Assistance Required: Contact Guard Assist Distance (Feet) 10 Able to Maintain Weight Bearing Status Yes During Gait Assistive Devices Assistive Device Gait Belt,Front Wheeled Walker Orthotic/Prosthetic Devices or Brace: No Gait Deviations General Gait Pattern Antalgic,Flexed Trunk Factors Limiting Gait Function Factors Limiting Gait Function Decreased Activity Tolerance, Decreased Strength,Difficulty Following Directions,Pain,Poor Balance,Poor Safety Awareness ,Respiratory Distress Comments Gait Comments gait w/ FWW, cued upright posture, body closer to FWW, increase stride and foot clearance. Stair Climbing Assessment Evaluation Level of Assist On Stairs Contact Guard Assistance, Minimal Assistance,1 Person Assistance Devices Stair Climbing Assistive Devices Front Wheel Walker Technique/Endurance Stair Climbing Direction Ascend and Descend Stair Climbing Technique Step to Step Number of Steps Climbed 1 Stair Climbing Set # Repetitions (reps) 1 Comments Stair Climbing Comments Ascended/ descend 1 PF step with FWW to assess strength stair mgt with UE support in room due to contact precautions. Support for trunk balance, pt tends to let go of FWW and unsteady, education for use of UE for safety stabilize, max cues for sequencing and FWW repositioning. PT-Balance Assessment Sitting Balance and Reactions Static Sitting Balance Ability Good Dynamic Sitting Balance Ability Fair Standing Balance and Reactions Static Standing Balance Ability Fair Dynamic Standing Balance Ability Fair Device Used FWW M5 PT-IP Objective Assessments Start: 02/12/22 12:02 Freq: NEEDED Status: Active Protocol: Document 02/12/22 12:00 DLM (Rec: 02/12/22 12:19 DLM [id number]) Orientation Orientation/Cognition Level of Alertness Lethargic Orientation Name,Situation Language Function Ability No Deficits Noted Safety Awareness Decreased Safety Awareness Memory Description Short Term Impaired Comments He denies vision changes but left eye swollen and draining. He is unable or not willing to give information about his prior level of function. Gross Range of Motion Upper Extremity ROM Assessment Within Functional Limits Lower Extremity ROM Assessment Within Functional Limits Strength Upper Extremity Strength Assessment Bilaterally Impaired Lower Extremity Strength Assessment Bilaterally Impaired Comments Strength Comments generalized weakness throughout, pt not willing to participate in manual muscle testing with complaints of not feeling well Coordination Assessment Gross Coordination Gross Coordination WNL Sensation Assessment Comments Sensation Comments he denies changes, skin on distal LE's is discolored and dry Muscle Tone Muscle Tone WNL Yes M6 PT-IP Treatment Start: 02/12/22 12:02 Freq: NEEDED Status: Active Protocol: Document 02/13/22 09:29 SP (Rec: 02/13/22 11:58 SP [id number]) Physical Therapy Treatment Education Education Provided Safety M7 PT-IP Assessment and Plan Start: 02/12/22 12:02 Freq: NEEDED Status: Active Protocol: Document 02/13/22 09:29 SP (Rec: 02/13/22 11:58 SP [id number]) PT Summary Assessment and Plan Potential Rehabilitation Potential Fair Status of Condition at Evaluation Evolving Summary Impairments Strength,Balance,Cognition,Bed Mobility,Transfers,Gait, Activity Tolerance Progress Towards Goals Progressing Toward Goals,Slow Progress due to Activity Tolerance Assessment Summary Pt requires Mod A to scoot forward at EOB, Min-Mod A for STS from EOB, CG- Min A during gait, Min A step mgt with FWW , uncertain of his step set up so unableto instruct all may have. He requires mod cues throughout tx for proper use of FWW, unsteady Min- Mod A when tried to park FWW off to side and walk away stating not needed. Pt is unsafe requiring cues for sequencing mobility and proper use of FWW high fall risk, recommending 24/7 available HHPT vs SNF for improvement in strength and safe funtional mobillity independence with further safety education. Pt increased respiratory rate throughout tx and cues for slow down/ stop breath recovery. Goals Bed Mobility Goal Standby Assistance Transfer Goal Standby Assistance,Front Wheeled Walker Gait Goal Standby Assistance,Front Wheel Walker Gait Distance 150 feet Other Goals Up and down 3 steps with rail and CG assist in preparation for going home Days to Meet Goals 7 Frequency of Treatment Frequency Of Treatment Once a Day Treatment Plan Physical Therapy Treatment Plan Bed Mobility Training,Transfer Training,Gait Training, Therapeutic Exercise,Balance Retraining,Discharge Planning, Neuromuscular Re-ed Other Recommendations and Next Treatment bed mob, transfers and gait w/ Focus LRAD, assess gait without AD for safety stability if woody FWW and walks away. Precautions Other Precautions high fall risk at this time Recommendations To Nursing Amount of Assist Needed 1 Person Assist Discharge Recommendations PT Discharge Recommendations Home with 17/03 Assist Available,SNF Rehab,Home vs SNF Transportation Needs at Discharge Private Vehicle,Wheelchair/ Cabulance
--- NOTE | 2022-02-13 10:09 | ED_ITS ---
HPI - Fall General Chief Complaint: Fall Stated Complaint: GLF Time Seen by Provider: 02/09/22 22:25 Source: EMS Mode of arrival: EMS Related Data Home Medications Medication Instructions Recorded Confirmed cholecalciferol (vitamin D3) 50 2,000 unit PO DAILY 02/13/21 02/10/22 mcg (2,000 unit) capsule (Vitamin D3) amlodipine 10 mg tablet 10 mg PO DAILY 11/02/21 02/10/22 melatonin 5 mg tablet 5 mg PO BEDTIME 11/02/21 02/10/22 Saccharomyces boulardii 250 mg 250 mg PO DAILY 02/10/22 02/10/22 capsule (Florastor) Previous Rx's Medication Instructions Recorded pantoprazole 40 mg tablet,delayed 40 mg PO BID #180 tabs 08/28/21 release allopurinol 100 mg tablet 100 mg PO DAILY #90 tabs 10/23/21 atenolol 50 mg tablet 50 mg PO BID #180 tabs 10/23/21 tamsulosin 0.4 mg capsule 0.4 mg PO BEDTIME #90 caps 10/23/21 quetiapine 100 mg tablet 100 mg PO BID #60 tabs 01/07/22 prednisone 20 mg tablet 80 mg PO DAILY 30 days #120 tabs 02/02/22 duloxetine 20 mg capsule,delayed 20 mg PO DAILY #90 caps 02/04/22 release potassium chloride 20 mEq 20 meq PO DAILY #90 tabs 02/04/22 tablet,extended release Allergies Allergy/AdvReac Type Severity Reaction Status Date / Time No Known Drug Allergies Allergy Verified 02/07/22 10:21 Patient History Medical History (Updated 02/10/22 @ 18:25 by Kary Christian DO) Acquired hypothyroidism (09/16/16) Actinic keratosis Basal cell carcinoma 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) Colon polyps COVID-19 virus infection (01/24/22) CVA (cerebral vascular accident) Depression (06/29/15) Erectile dysfunction (02/12/16) Essential hypertension (06/29/15) Gout Hemorrhoids Hyperlipemia Insomnia Metabolic encephalopathy Obstructive sleep apnea Osteoarthritis Pneumonia due to COVID-19 virus Primary insomnia (09/16/16) 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 Surgical History History of ectropion repair (10/2017) Hx of surgical procedure Family History Family/Other Unknown family medical history Social History household members: none Smoking Status: Current some day smoker alcohol intake: current Smoking Status: Current some day smoker tobacco type: cigarettes alcohol intake frequency: 0-2 drinks per day Alcohol type: hard liquor Substance Use Type: does not use Exam Initial Vital Signs Initial Vital Signs: Vital Signs Temperature 100.0 F H 02/09/22 22:25 Pulse Rate 86 02/09/22 22:25 Respiratory Rate 18 02/09/22 22:25 Blood Pressure 144/65 H 02/09/22 22:25 Pulse Oximetry 97 02/09/22 22:25 Oxygen Delivery Method 02/09/22 22:25 Oxygen Flow Rate 2 02/09/22 22:25 Course Orders Ordered: Acetaminophen (Acetaminophen 325 Mg Tablet) 650 mg PO Q6H PRN PRN Reason: pain Last Admin: 02/10/22 21:48 Dose: 650 mg Documented By: Acyclovir (Acyclovir 5% Oint 15 Gm) 1 applic TOP QID [facility] Last Admin: 02/12/22 21:18 Dose: 1 applic Documented By: Admin: 02/12/22 16:42 Dose: 1 applic Documented By: Admin: 02/12/22 12:28 Dose: 1 applic Documented By: Admin: 02/12/22 12:28 Dose: Not Given Documented By: Admin: 02/12/22 00:07 Dose: Not Given Documented By: Admin: 02/11/22 16:57 Dose: 1 applic Documented By: Admin: 02/11/22 12:33 Dose: 1 applic Documented By: Admin: 02/11/22 09:32 Dose: 1 applic Documented By: Admin: 02/10/22 20:21 Dose: 1 applic Documented By: Admin: 02/10/22 17:25 Dose: 1 applic Documented By: Admin: 02/10/22 14:10 Dose: 1 applic Documented By: MARCELO Amlodipine Besylate (Amlodipine 5 Mg Tablet) 10 mg PO DAILY [facility] Last Admin: 02/12/22 11:12 Dose: 10 mg Documented By: Admin: 02/11/22 09:31 Dose: 10 mg Documented By: Admin: 02/10/22 10:19 Dose: 10 mg Documented By: CTS Cefazolin Sodium/Dextrose (Cefazolin 2 Gm/20 Ml Syringe) 2 gm IV Q8H [facility] Last Admin: 02/13/22 01:48 Dose: 2 gm Documented By: SH Duloxetine HCl (Duloxetine 20 Mg Capsule) 20 mg PO DAILY [facility] Last Admin: 02/12/22 11:11 Dose: 20 mg Documented By: Admin: 02/11/22 09:31 Dose: 20 mg Documented By: Admin: 02/10/22 10:20 Dose: 20 mg Documented By: CTS Enoxaparin Sodium (Enoxaparin 40 Mg/0.4 Ml Syringe) 40 mg SUBCUT DAILY [facility] Last Admin: 02/12/22 11:12 Dose: 40 mg Documented By: Admin: 02/11/22 09:30 Dose: 40 mg Documented By: Admin: 02/10/22 10:23 Dose: 40 mg Documented By: CTS Erythromycin (Erythromycin Ophth 1 Gm Oint) 1 applic EYE-LEFT QID [facility] Last Admin: 02/12/22 21:19 Dose: 1 applic Documented By: Admin: 02/12/22 16:42 Dose: 1 applic Documented By: Admin: 02/12/22 14:04 Dose: Not Given Documented By: Admin: 02/12/22 11:13 Dose: 1 applic Documented By: Admin: 02/11/22 21:32 Dose: 1 applic Documented By: Admin: 02/11/22 16:56 Dose: 1 applic Documented By: Admin: 02/11/22 12:33 Dose: 1 applic Documented By: Admin: 02/11/22 09:32 Dose: 1 applic Documented By: Admin: 02/10/22 20:18 Dose: 1 applic Documented By: Admin: 02/10/22 17:26 Dose: 1 applic Documented By: Admin: 02/10/22 14:10 Dose: 1 applic Documented By: RL Sodium Chloride (Normal Saline 0.9%) 1,000 mls @ 75 mls/hr IV CONT [facility] Lactobacillus Acidophilus (Lactobacillus Acidophilus Tablet) 2 each PO BID [facility] Last Admin: 02/12/22 21:19 Dose: 2 each Documented By: Admin: 02/12/22 11:12 Dose: 2 each Documented By: Admin: 02/11/22 21:30 Dose: 2 each Documented By: Admin: 02/11/22 09:32 Dose: 2 each Documented By: Admin: 02/10/22 20:18 Dose: 2 each Documented By: Admin: 02/10/22 10:21 Dose: 2 each Documented By: VERNON Melatonin (Melatonin 3 Mg Tablet) 6 mg PO BEDTIME [facility] Last Admin: 02/12/22 21:19 Dose: 6 mg Documented By: Admin: 02/11/22 21:33 Dose: 6 mg Documented By: Admin: 02/10/22 20:17 Dose: 6 mg Documented By: Naloxone HCl (Naloxone 0.4 Mg/Ml Vial) 0.2 mg IV Q2MIN PRN PRN Reason: Opiate Reversal Ondansetron HCl (Ondansetron 4 Mg Odt) 4 mg PO DAILY PRN PRN Reason: nausea and vomiting Oxycodone/Acetaminophen (Oxycodone/Acetaminophen 5/325 Tablet) 1 tab PO QID PRN PRN Reason: pain Pantoprazole Sodium (Pantoprazole Dr 40 Mg Tablet) 40 mg PO BID [facility] Admin: 02/12/22 21:19 Dose: 40 mg Documented By: Admin: 02/12/22 11:12 Dose: 40 mg Documented By: Admin: 02/11/22 21:33 Dose: 40 mg Documented By: Admin: 02/11/22 09:31 Dose: 40 mg Documented By: Admin: 02/10/22 20:18 Dose: 40 mg Documented By: Admin: 02/10/22 10:22 Dose: 40 mg Documented By: VERNON Potassium Chloride (Potassium Chloride 20 Meq Tab) 20 meq PO DAILY [facility] Last Admin: 02/12/22 12:27 Dose: 20 meq Documented By: Admin: 02/11/22 09:31 Dose: 20 meq Documented By: Admin: 02/10/22 10:20 Dose: 20 meq Documented By: VERNON Quetiapine Fumarate (Quetiapine 100 Mg Tablet) 100 mg PO BID [facility] Last Admin: 02/12/22 21:19 Dose: 100 mg Documented By: Admin: 02/12/22 11:11 Dose: 100 mg Documented By: Admin: 02/11/22 21:55 Dose: 100 mg Documented By: Admin: 02/11/22 09:30 Dose: 100 mg Documented By: Admin: 02/10/22 20:18 Dose: 100 mg Documented By: Admin: 02/10/22 10:20 Dose: 100 mg Documented By: CTS Tamsulosin HCl (Tamsulosin 0.4 Mg Capsule) 0.4 mg PO BEDTIME [facility] Last Admin: 02/12/22 21:20 Dose: 0.4 mg Documented By: Admin: 02/11/22 21:33 Dose: 0.4 mg Documented By: Admin: 02/10/22 20:19 Dose: 0.4 mg Documented By: Valacyclovir HCl (Valacyclovir 500 Mg Tablet) 1,000 mg PO TID [facility] Vitamin D (Cholecalciferol (Vitamin D3) 1,000 Unit Tablet) 2,000 unit PO DAILY [facility] Last Admin: 02/12/22 11:10 Dose: 2,000 unit Documented By: Admin: 02/11/22 09:31 Dose: 2,000 unit Documented By: Admin: 02/10/22 10:22 Dose: 2,000 unit Documented By: VERNON Discontinued Medications Acetaminophen (Acetaminophen Susp 650 Mg/20.3 Ml Udc) 650 mg PO NOW ONE Stop: 02/10/22 01:03 Last Admin: 02/10/22 01:06 Dose: 650 mg Documented By: YESSY Acyclovir (Acyclovir 5% Oint 15 Gm) 1 applic TOP TID [facility] Last Admin: 02/10/22 10:30 Dose: 1 applic Documented By: VERNON Allopurinol (Allopurinol 100 Mg Tablet) 100 mg PO DAILY [facility] Last Admin: 02/12/22 11:12 Dose: 100 mg Documented By: Admin: 02/11/22 09:31 Dose: 100 mg Documented By: Admin: 02/10/22 10:20 Dose: 100 mg Documented By: VERNON Atenolol (Atenolol 50 Mg Tablet) 50 mg PO BID [facility] Last Admin: 02/12/22 21:19 Dose: 50 mg Documented By: Admin: 02/12/22 11:10 Dose: 50 mg Documented By: Admin: 02/11/22 21:31 Dose: 50 mg Documented By: Admin: 02/11/22 09:31 Dose: 50 mg Documented By: Admin: 02/10/22 20:18 Dose: 50 mg Documented By: Admin: 02/10/22 10:21 Dose: 50 mg Documented By: VERNON Cefazolin Sodium/Dextrose (Cefazolin 2 Gm/20 Ml Syringe) 2 gm IV Q8H [facility] Cefazolin Sodium/Dextrose (Cefazolin 2 Gm/20 Ml Syringe) 2 gm IV Q8H [facility] Last Admin: 02/10/22 15:44 Dose: 2 gm Documented By: TLS Cefazolin Sodium/Dextrose (Cefazolin 2 Gm/20 Ml Syringe) 2 gm IV Q8H [facility] Last Admin: 02/12/22 23:19 Dose: Not Given Documented By: Admin: 02/12/22 15:19 Dose: 2 gm Documented By: Admin: 02/12/22 07:04 Dose: 2 gm Documented By: Admin: 02/12/22 00:09 Dose: 2 gm Documented By: Admin: 02/11/22 14:09 Dose: 2 gm Documented By: Admin: 02/11/22 05:47 Dose: 2 gm Documented By: Admin: 02/10/22 21:54 Dose: 2 gm Documented By: Furosemide (Furosemide 40 Mg/4 Ml Vial) 20 mg IV NOW ONE Stop: 02/10/22 02:33 Last Admin: 02/10/22 03:33 Dose: 20 mg Documented By: YESSY Acyclovir 1,160 mg/ Dextrose 250 mls @ 250 mls/hr IV NOW ONE Stop: 02/10/22 01:27 Last Infusion: 02/10/22 04:50 Dose: 0 mls/hr Documented By: Admin: 02/10/22 03:36 Dose: 250 mls/hr Documented By: YESSY Ceftriaxone Sodium 2,000 mg/ (Sodium Chloride) 100 mls @ 200 mls/hr IV NOW ONE Stop: 02/10/22 01:27 Last Infusion: 02/10/22 03:00 Dose: 0 mls/hr Documented By: Admin: 02/10/22 01:57 Dose: 200 mls/hr Documented By: YESSY Sodium Chloride (Normal Saline 0.9%) 1,000 mls @ 150 mls/hr IV CONT BHAVIN Last Infusion: 02/10/22 13:41 Dose: 0 mls/hr Documented By: Infusion: 02/10/22 07:07 Dose: 0 mls/hr Documented By: Infusion: 02/10/22 07:05 Dose: 0 mls/hr Documented By: Admin: 02/10/22 01:55 Dose: 150 mls/hr Documented By: KP Dextrose/Sodium Chloride (Dextrose 5%-0.9% Ns) 1,000 mls @ 100 mls/hr IV CONT [facility] Last Admin: 02/11/22 02:43 Dose: 100 mls/hr Documented By: Infusion: 02/11/22 01:51 Dose: 100 mls/hr Documented By: Admin: 02/10/22 15:51 Dose: 100 mls/hr Documented By: Infusion: 02/10/22 15:51 Dose: 100 mls/hr Documented By: Admin: 02/10/22 07:06 Dose: 100 mls/hr Documented By: YESSY Acyclovir 1,000 mg/ Dextrose 250 mls @ 250 mls/hr IV Q8H [facility] Acyclovir 1,000 mg/ Dextrose 250 mls @ 250 mls/hr IV Q8H [facility] Last Admin: 02/12/22 23:18 Dose: Not Given Documented By: Infusion: 02/12/22 17:01 Dose: 0 mls/hr Documented By: Admin: 02/12/22 13:53 Dose: 250 mls/hr Documented By: Infusion: 02/12/22 07:00 Dose: 250 mls/hr Documented By: Admin: 02/12/22 05:06 Dose: 250 mls/hr Documented By: Infusion: 02/11/22 22:27 Dose: 250 mls/hr Documented By: Admin: 02/11/22 21:27 Dose: 250 mls/hr Documented By: Infusion: 02/11/22 13:35 Dose: 0 mls/hr Documented By: Admin: 02/11/22 12:32 Dose: 250 mls/hr Documented By: Infusion: 02/11/22 05:06 Dose: 0 mls/hr Documented By: Admin: 02/11/22 04:06 Dose: 250 mls/hr Documented By: Infusion: 02/10/22 21:16 Dose: 0 mls/hr Documented By: Admin: 02/10/22 20:16 Dose: 250 mls/hr Documented By: Infusion: 02/10/22 14:58 Dose: 0 mls/hr Documented By: Admin: 02/10/22 13:47 Dose: 250 mls/hr Documented By: DEANDRE Acyclovir 1,000 mg/ Dextrose 250 mls @ 250 mls/hr IV Q8H [facility] Last Admin: 02/13/22 00:08 Dose: 250 mls/hr Documented By: SH Potassium Chloride (Potassium Chloride 20 Meq Tab) 40 meq PO NOW ONE Stop: 02/12/22 08:51 Last Admin: 02/12/22 11:11 Dose: 40 meq Documented By: CLL MDM - Fall Lab Data Result diagrams: 02/12/22 07:08 02/13/22 07:05 Labs: Lab Results 02/10/22 02/10/22 02/10/22 Range/Units 00:25 00:25 00:25 WBC 9.6 (4.5-11.0) X10^3/uL RBC 4.41 L (4.5-5.9) X10^6/uL Hgb 12.4 L (13.5-17.5) g/dL Hct 37.6 L (41-53) % MCV 85.3 (80-100) fL MCH 28.2 (26-34) PG MCHC 33.1 (30-36) % RDW 19.2 H (11.6-14.8) % Plt Count 111 L (150-400) X10^3/uL Neut % (Auto) 79.2 H (50-75) % Lymph % (Auto) 9.0 L (25-40) % [place] % (Auto) 11.2 (3-14) % Eos % (Auto) 0.3 L (2-4) % Baso % (Auto) 0.3 (0-2) % Neut # (Auto) 7600 H (5469-1989) /uL Lymph # (Auto) 900 L (4318-4436) /uL [place] # (Auto) 1100 H (0-900) /uL Eos # (Auto) 0 (0-450) /uL Baso # (Auto) 0 (0-100) /uL D-Dimer 857 H (<230) ng/mL Sodium 132 L (137-145) mmol/L Potassium 4.1 (3.4-5.1) mmol/L Chloride 92 L (98-107) mmol/L Carbon Dioxide 34 H (22-32) mmol/L BUN 24 H (9-20) mg/dL Creatinine 0.91 (0.66-1.25) mg/dL Estimated GFR > 60 (>60) mL/min BUN/Creatinine Ratio 26.4 H (6-22) Glucose 86 (80-110) mg/dL Lactate (0.7-2.1) mmol/L Calcium 8.5 (8.4-10.2) mg/dL Total Bilirubin 0.6 (0.2-1.3) mg/dL AST 44 (17-59) IU/L ALT 44 (<50) IU/L Alkaline Phosphatase 72 (38-126) U/L Total Creatine Kinase 21 L (55-170) U/L CK-MB (CK-2) TNP CK-MB (CK-2) Rel Index TNP Troponin I < 0.012 (0.01-0.034) ng/mL NT-Pro-B Natriuret Pep 1470 H (<450) pg/mL Total Protein 6.6 (6.3-8.2) g/dL Albumin 3.6 (3.5-5.0) g/dL Globulin 3.0 (1.7-4.1) g/dL Albumin/Globulin Ratio 1.2 (1.0-2.8) Lipase 173 (23-300) U/L Procalcitonin (<0.5) ng/mL Urine Color Urine Appearance Urine pH (4.5-8.0) Ur Specific [place] (1.000-1.035) Urine Protein (Negative) Urine Glucose (UA) (Negative) g/dL Urine Ketones (NEGATIVE) Urine Occult Blood (Negative) Urine Nitrate (Negative) Urine Bilirubin (NEGATIVE) Urine Urobilinogen (0.2) E.U./dL Ur Leukocyte Esterase (NEGATIVE) Urine RBC (0-5/HPF) Urine WBC (0-5/HPF) Urine Bacteria (None) Ur Culture Indicated? 02/10/22 02/10/22 02/10/22 Range/Units 00:25 00:25 03:25 WBC (4.5-11.0) X10^3/uL RBC (4.5-5.9) X10^6/uL Hgb (13.5-17.5) g/dL Hct (41-53) % MCV (80-100) fL MCH (26-34) PG MCHC (30-36) % RDW (11.6-14.8) % Plt Count (150-400) X10^3/uL Neut % (Auto) (50-75) % Lymph % (Auto) (25-40) % [place] % (Auto) (3-14) % Eos % (Auto) (2-4) % Baso % (Auto) (0-2) % Neut # (Auto) (4449-9017) /uL Lymph # (Auto) (0744-4181) /uL [place] # (Auto) (0-900) /uL Eos # (Auto) (0-450) /uL Baso # (Auto) (0-100) /uL D-Dimer (<230) ng/mL Sodium (137-145) mmol/L Potassium (3.4-5.1) mmol/L Chloride (98-107) mmol/L Carbon Dioxide (22-32) mmol/L BUN (9-20) mg/dL Creatinine (0.66-1.25) mg/dL Estimated GFR (>60) mL/min BUN/Creatinine Ratio (6-22) Glucose (80-110) mg/dL Lactate 1.3 (0.7-2.1) mmol/L Calcium (8.4-10.2) mg/dL Total Bilirubin (0.2-1.3) mg/dL AST (17-59) IU/L ALT (<50) IU/L Alkaline Phosphatase (38-126) U/L Total Creatine Kinase (55-170) U/L CK-MB (CK-2) CK-MB (CK-2) Rel Index Troponin I (0.01-0.034) ng/mL NT-Pro-B Natriuret Pep (<450) pg/mL Total Protein (6.3-8.2) g/dL Albumin (3.5-5.0) g/dL Globulin (1.7-4.1) g/dL Albumin/Globulin Ratio (1.0-2.8) Lipase (23-300) U/L Procalcitonin 0.23 (<0.5) ng/mL Urine Color Yellow Urine Appearance Clear Urine pH 5.0 (4.5-8.0) Ur Specific [place] 1.020 (1.000-1.035) Urine Protein 2+ H (Negative) Urine Glucose (UA) Negative (Negative) g/dL Urine Ketones Trace H (NEGATIVE) Urine Occult Blood 3+ H (Negative) Urine Nitrate Negative (Negative) Urine Bilirubin Negative (NEGATIVE) Urine Urobilinogen 0.2 (0.2) E.U./dL Ur Leukocyte Esterase Negative (NEGATIVE) Urine RBC 5-10/hpf H (0-5/HPF) Urine WBC None seen (0-5/HPF) Urine Bacteria None seen (None) Ur Culture Indicated? Cult not indicated Discharge Plan Departure Patient Disposition: Admitted As Inpatient Clinical Impression: Shingles Qualifiers: Herpes zoster complications: with ocular involvement Herpes zoster ocular complication detail: keratitis Qualified Code(s): B02.33 - Zoster keratitis Cellulitis Qualifiers: Site of cellulitis: face Qualified Code(s): L03.211 - Cellulitis of face Admit Date/Time: 02/10/22 04:30 Admit Provider: Estuardo Small
--- NOTE | 2022-02-13 11:09 | OT.IP.EVAL ---
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 Surgical History (Last Reviewed 02/10/22 @ 01:24 by Kary Christian DO) History of ectropion repair (10/2017) Hx of surgical procedure Occupational Therapy Inpatient Evaluation/Re-Eval M1 PT/OT-IP Prior Functional Status Start: 02/12/22 12:02 Freq: NEEDED Status: Active Protocol: Document 02/13/22 10:51 [facility] (Rec: 02/13/22 11:09 [facility] [id number]) Medical Review Prior Functional Status Medical History Reviewed Yes Diet/Fluid Consistency Regular Communication WNL Mobility and Gait ambulates with FWW Activities of Daily Living and IADL's caregiver assist 4 day/week for 2-4 hours at a time . Pt states his daughter lives nearby to assist as needed. Prior Functional Level (Other details) Hernandez is not able to give much information about his baseline at this time Social History Household Members none Living Arrangements House Number of Floors (Floors) One Floor Number of Stairs To Enter/Railing? steps to enter, he could not give number or details Home Equipment Front Wheel Walker,Raised Toilet Seat w/Armrests Employment Status Retired Additional Social History Comment home oxygen, sleeps in recliner Pt discharged home from [facility] but returned to ED the same day. Chart notes indicate he has been declining since getting shingles. M2 OT-IP Current Condition Start: 02/13/22 10:51 Freq: Status: Active Protocol: Document 02/13/22 10:51 [facility] (Rec: 02/13/22 11:09 [facility] [id number]) Occupational Therapy Current Condition Current Condition Evaluation Date 02/13/22 Treatment Diagnosis Generalized weakness Diagnosis Onset Date 02/10/22 M3 OT- IP Subjective and Pain Start: 02/13/22 10:51 Freq: Status: Active Protocol: Document 02/13/22 10:51 [facility] (Rec: 02/13/22 11:09 [facility] [id number]) OT- Subjective Occupational Therapy Visit Type Type Initial Evaluation Visit Start Time 10:25 Visit Stop Time 10:43 Total Visit Minutes 18 Occupational Therapy Visit Comments Patient Comments Initially pt not wanting to get up and then requesting to use the BSC. OT Pain Assessment Pain When Pain Assessed At Rest Pain Present Pain Present Pain Reported Location Buttock Pain Behaviors Facial Grimacing,Moaning M4 OT- IP ADL's Start: 02/13/22 10:51 Freq: Status: Active Protocol: Document 02/13/22 10:51 [facility] (Rec: 02/13/22 11:09 [facility] [id number]) OT PFA-Yuny-Pqtesam Comments OT Self-Feeding Comments Not at meal time. OT ADL-Grooming Comments OT Grooming Comments Pt needing assist to wash his hands after set-up of wash cloth. OT ADL-Oral Care Comments Oral Care Comments Not perfromed. OT ADL-Dressing General Eval Lower Body Dressing Ability Maximum Assistance Areas Needing Assistance Underpants/Brief OT ADL-Toileting General Evaluation Toileting Ability Maximum Assistance Areas Needing Assistance Manage Clothing,Perform Perineal Hygiene Devices Toileting Assistive Devices Commode Comments OT Toileting Comments OT assisted pt to stand with pt CGA/ANSHU with FWW while nursing aid able to assist with hygiene and brief management needs. M5 OT- IP IADL's Start: 02/13/22 10:51 Freq: Status: Active Protocol: Document 02/13/22 10:51 [facility] (Rec: 02/13/22 11:09 [facility] [id number]) OT-Instrumental Activities of Daily Living Home Safety Awareness Home Safety Comments Pt mainly orientated to his name at this time. If pt going home will need 24/7 assist. M6 OT- IP Functional Cognition Start: 02/13/22 10:51 Freq: Status: Active Protocol: Document 02/13/22 10:51 [facility] (Rec: 02/13/22 11:09 [facility] [id number]) Cognitive Factors Limiting Selfcare Function Cognitive Ability Level of Alertness Alert,Confusional State Patient Orientation Name Attention Span Ability Capable of Focused Attention, Unable to Sustain Attention Ability to Follow Commands Able to Follow One Step Commands with Increased Time, Able to Follow One Step Commands with Repetition Cognitive Comments Cognitive Assessment Comments Pt mainly orientated to his name and tangential during conversations. One minute pt wanting salve on his buttock and then denying in the next minute. Pt also requesting a camera but unable to explain for what reason. Pt needing increased time to process information and follow commands. OT- Vision and Hearing OT- Vision Assessment Vision Assessment Comments Pt left eye crusted and a bit swollen and tends to keep his left eye closed. Pt able to open his right eye. M7 OT- IP Mobility and Balance Start: 02/13/22 10:51 Freq: Status: Active Protocol: Document 02/13/22 10:51 [facility] (Rec: 02/13/22 11:09 [facility] [id number]) OT-Transfer Assessment Sit to and From Stand Sit to and from Stand Minimal Assistance Transfers Transfer Ability Minimal Assistance Technique Transfer Destination Bed,Bedside Commode Transfer Technique Stand Step Pivot Devices Transfer Assistive Devices Gait Belt,Front Wheeled Walker Comments Mobility Comments ANSHU to MODA to stand depending on the height of the surface to FWW and ANSHU for transfer. Pt needing vc for safety for hand placement and to back up all the way to the recliner before sitting. OT- Balance Assessment Sitting Balance and Reactions Static Sitting Balance Ability Good Standing Balance and Reactions Static Standing Balance Ability Fair M8 OT- IP Objective Assessments Start: 02/13/22 10:51 Freq: Status: Active Protocol: Document 02/13/22 10:51 [facility] (Rec: 02/13/22 11:09 [facility] [id number]) OT Gross Range of Motion Upper Extremity Range of Motion ROM Impairments Not able to fully assess as pt having difficulty to follow directions. OT Strength Comments Strength Comments Pt at least 3-/5 as noted by pt's assist for transfer and use of FWW. OT-Muscle Tone Assessment Muscle Tone WNL Yes M9 OT- IP Assessment and Plan Start: 02/13/22 10:51 Freq: Status: Active Protocol: Document 02/13/22 10:51 [facility] (Rec: 02/13/22 11:09 [facility] [id number]) OT Summary Assessment and Plan Potential Rehabilitation Potential Good/fair Analytic Complexity at Evaluation Moderate Summary OT Impairments Pain,Balance,Functional Cognition,Functional Mobility, Self-Feeding,Grooming,Dressing ,Toileting,Bathing,Toilet Transfers,Shower Transfers, Activity Tolerance Progress Towards Goals Slow Progress due to Pain,Slow Progress due to Medical Issues,Slow Progress due to Activity Tolerance,Slow Progress due to Cognition Assessment Summary Pt mod complexity and here due to weakness and shingles. Pt if going home would benefit form 24/7 assist due to his confusion and need for one person assist for all ADl and mobility needs at this time. In addition home health services would beneficial. Otherwise pt would benefit from skilled rehab to help maximize his independence for ADl's and mobility needs. Goals Self-Feeding Goal Independent Grooming Goal Standby Assistance Dressing Goal Independent Toileting Goal Independent Bathing Goal Minimal Assistance Toilet Transfer Goal Independent Shower Transfer Goal Independent Days to Meet Goals 15 Frequency of Treatment Frequency Of Treatment Once a Day Treatment Plan OT Treatment Plan ADL Training,Functional Cognition Training,Functional Mobility,Patient/Family Education,Discharge Planning Discharge Recommendations OT Discharge Recommendations Home with 24/7 Assist Available,Home Health,SNF Rehab,Home vs SNF Transportation Needs at Discharge Private Vehicle,Wheelchair/ Cabulance
--- NOTE | 2022-02-13 15:07 | CM.DPNOTE ---
Faxed snf clinicals for snf ref to [facility]; sent info to [facility]; emailed [facility] gonzalez & [facility] jamari Herrera. Saranya Duong CM Assist.
[2022-02-13] MEDS: valACYclovir 500 MG TABLET 1000 MG PO ×2 (15:40→21:02)
--- NOTE | 2022-02-13 16:07 | CM.DPC ---
DCP/continued: Reviewed chart. Current recommendation from therapy is SNF. RELEASE COORDINATOR asked CONRAD/Saranya to fax SNF request with clinicals to [place]. In addition, placed calls to [facility], [facility], and [facility] requesting they all review and/or re-review. Briefly met with daughter on 02-12-22 she requested Medicaid application which CONRAD/Saranya provided. Provider in AM rounds reports that placement is best option because of current readmits. Provider in agreement for CM team to discuss hospice with daughter as option. RELEASE COORDINATOR unable to follow up with daughter today due to time restraints and caseload. Will request RELEASE COORDINATOR make this priority on 02-14-22. Provider reports patient can go to SNF within the next 24hrs. P: Patient either needs SNF placement or to d/c to long-term placement, home with home health or hospice. RELEASE COORDINATOR to prioritize this case for d/c planning. Per notes daughter is DPOA and patient's financial status for private pay unknown? Also unclear on how agreeable patient is to SNF may be more satisfied with hospice at home? LINDA Pendleton
--- NOTE | 2022-02-13 16:32 | PM.PN.1 ---
Subjective Subjective Date Patient Seen: 02/13/22 Time Patient Seen: 08:00 Interval history: He is sitting in bed. He denies pain. He says he feels fine, he says he wants to go home. Exam Vital Signs (past 8 hours): - 02/13/22 09:29 02/13/22 09:00 02/13/22 13:02 Temperature 98.4 F 98.4 F Pulse Rate 62 66 Respiratory Rate 16 16 Blood Pressure 120/56 L 121/64 Pulse Oximetry 94 92 94 Oxygen Delivery Method Nasal Cannula Oxygen Flow Rate 2 2 2 Oxygen Delivery Method Nasal Cannula Oxygen Flow Rate 2 Narrative Exam Narrative: GEN:?sitting in chair, sleepy, but arousable HEENT: right eyelid mild swelling, left eye is swollen and shut with erythematous conjunctiva, rash with crusted lesions to left eyelid, forehead, scalp, nasal involvement on tip and left side, overal appears improving CHEST: diminished but clear bilaterally CV: regular rate and rhythm, with no murmurs EXTR: brawny edema, nonpitting bilaterally SKIN: rash as described above NEURO:?no focal deficits noted Objective Labs Result Diagrams: 02/12/22 07:08 02/13/22 07:05 Labs: Laboratory Results - last 24 hr 02/13/22 07:05 Sodium 136 L Potassium 4.0 Chloride 102 Carbon Dioxide 30 BUN 17 Creatinine 1.37 H Estimated GFR 50 L BUN/Creatinine Ratio 12.4 Glucose 100 Calcium 7.9 L Magnesium 1.8 [facility] Medical History (Updated 02/10/22 @ 18:25 by Kary Christian DO) Acquired hypothyroidism (09/16/16) Actinic keratosis Basal cell carcinoma 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) Colon polyps COVID-19 virus infection (01/24/22) CVA (cerebral vascular accident) Depression (06/29/15) Erectile dysfunction (02/12/16) Essential hypertension (06/29/15) Gout Hemorrhoids Hyperlipemia Insomnia Metabolic encephalopathy Obstructive sleep apnea Osteoarthritis Pneumonia due to COVID-19 virus Primary insomnia (09/16/16) 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 Altered mental status -likely secondary to multiple etiologies -pt refused LP , MRI unremarkable for acute changes -continue telemetry monitoring 2. Acute herpes Zoster, zoster keratitis -switch acyclovir to valtrex, monitor creatinine daily -stop antibiotics 3. Debility/Weakness complicated with poor vision now and as above -PT/OT 4. CHF diastolic -continue lasix IV as needed 5. Hypertension -continue amlodipine -hold atenolol 6. Gout -hold allopurinol 7. Depression - continue quetiapine , duloxetine. 8. BPH -continue tamsulosin 9. H/O CVA -stable -continue telemetry 10. NATTY - CPAP Code status: Full ( pt expressed feeling to be changed to DNR - will confirm with POA) Prophylaxis: Lovenox Time Spent With Patient Critical Care time: I spent a total of [] minutes of critical care time on this patient's care today; this time is exclusive of procedural time. Quality VTE Deep Vein Thrombosis/Pulmonary Embolism Present on Admission: No
--- NOTE | 2022-02-13 17:56 | PC.NURSE ---
Pt sitting in chair all shift. Denies discomfort, Left side face dry/flaky Ointment applied as per orders. Eating meals w/o incidence. Call light w\in reach, alrm on for pt safety, Continue w/plan of care..
[2022-02-13] MEDS: ERYTHROMYCIN OPHTH 1 GM OINT 1 APPLIC EYE-LEFT ×2 (18:01→20:59)
[2022-02-13] MEDS: ACYCLOVIR 5% OINT 15 GM 1 APPLIC TOP ×2 (18:02→20:59)
[2022-02-13] MEDS: QUETIAPINE 100 MG TABLET PO (20:57)
[2022-02-13] MEDS: MELATONIN 3 MG TABLET 6 MG PO (20:57)
[2022-02-13] MEDS: TAMSULOSIN 0.4 MG CAPSULE PO (20:57)
[2022-02-13] MEDS: PANTOPRAZOLE DR 40 MG TABLET PO (20:57)
[2022-02-13] MEDS: LACTOBACILLUS ACIDOPHILUS TABLET 2 EACH PO (20:58)
[2022-02-14] VITALS (9 sets, daily range): BP systolic 99–148; BP diastolic 46–64; PULSE 72–85; RESP 18–20; TEMP 36.1–36.9; O2SAT 90–98
[2022-02-14] MEDS: SODIUM CHLORIDE 0.9% FLUSH 10 ML IV ×3 (00:17→21:27)
[2022-02-14 07:22] LABS: Hematocrit 32.1 % (41-53); Hemoglobin 10.7 g/dL (13.5-17.5); Mean Corpuscular HGB Conc 33.2 % (30-36); Mean Corpuscular Hemoglobin 28.7 PG (26-34); Mean Corpuscular Volume 86.7 fL (80-100); Platelet Count 152 X10^3/uL (150-400); Red Blood Cell Count 3.71 X10^6/uL (4.5-5.9); Red Cell Distribution Width 19.2 % (11.6-14.8)
[2022-02-14 07:36] LABS: Blood Urea Nitrogen 18 mg/dL (9-20); Carbon Dioxide 30 mmol/L (22-32); Chloride 105 mmol/L (98-107); Estimated Glomerular Filt Rate 54 mL/min (>60); Glucose 110 mg/dL (80-110); HEMOLYSIS < 15 (0-50); Potassium 3.9 mmol/L (3.4-5.1); Sodium 138 mmol/L (137-145)
[2022-02-14] MEDS: LACTOBACILLUS ACIDOPHILUS TABLET 2 EACH PO ×2 (09:21→21:14)
[2022-02-14] MEDS: valACYclovir 500 MG TABLET 1000 MG PO ×3 (09:21→21:15)
[2022-02-14] MEDS: CHOLECALCIFEROL (VITAMIN D3) 1,000 UNIT TABLET 2000 UNIT PO (09:21)
[2022-02-14] MEDS: PANTOPRAZOLE DR 40 MG TABLET PO ×2 (09:21→21:15)
[2022-02-14] MEDS: QUETIAPINE 100 MG TABLET PO (09:21)
[2022-02-14] MEDS: ACYCLOVIR 5% OINT 15 GM 1 APPLIC TOP ×4 (09:22→21:25)
[2022-02-14] MEDS: ERYTHROMYCIN OPHTH 1 GM OINT 1 APPLIC EYE-LEFT ×4 (09:23→21:15)
[2022-02-14] MEDS: POTASSIUM CHLORIDE 20 MEQ TAB PO (09:23)
[2022-02-14] MEDS: ENOXAPARIN 40 MG/0.4 ML SYRINGE SUBCUT (09:23)
[2022-02-14] MEDS: AMLODIPINE 5 MG TABLET 10 MG PO (09:25)
[2022-02-14] MEDS: DULOXETINE 20 MG CAPSULE PO (09:25)
--- NOTE | 2022-02-14 11:16 | OT.IPNOTE ---
Attempted to work with pt , pt asleep in the recliner. Pt able to open his eyes for a breife moment and then proceeded to go back to sleep. To check on the pt later.
--- NOTE | 2022-02-14 11:18 | OT.IPNOTE ---
Pt asleep in the recliner and difficulty to arouse. Pt able to open his eyes for a brief moment and then proceeded to go back to sleep. To check on the pt later for Ot treatment.
--- NOTE | 2022-02-14 12:29 | CM.DPNOTE ---
Addendum entered by Saranya Duong 02/14/22 13:00: [facility] Saranya Duong CM Assist. Original Note: Emailed Ar[facility] BERRY per Saray. Also faxed to [facility] and [facility]. Saranya Duong CM Assist.
--- NOTE | 2022-02-14 12:50 | OT.IP.TRT ---
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) Occupational Therapy Treatment Note M2 OT-IP Current Condition Start: 02/13/22 10:51 Freq: Status: Active Protocol: Document 02/13/22 10:51 [facility] (Rec: 02/13/22 11:09 [facility] [id number]) Occupational Therapy Current Condition Current Condition Evaluation Date 02/13/22 Treatment Diagnosis Generalized weakness Diagnosis Onset Date 02/10/22 M3 OT- IP Subjective and Pain Start: 02/13/22 10:51 Freq: Status: Active Protocol: Document 02/14/22 12:51 [facility] (Rec: 02/14/22 13:00 [facility] [id number]) OT- Subjective Occupational Therapy Visit Type Type Treatment Note Visit Start Time 12:31 Visit Stop Time 12:50 Total Visit Minutes 19 Occupational Therapy Visit Comments Patient Comments Pt up in the recliner and was eating his fruit and alert, therefore brought his tray in to assess his independence for self feeding. Patient/Caregiver Goals Pt wants to go home. OT Pain Assessment Pain When Pain Assessed At Rest Pain Present Pain Present Pain Reported Location Buttock Pain Behaviors Facial Grimacing,Moaning M4 OT- IP ADL's Start: 02/13/22 10:51 Freq: Status: Active Protocol: Document 02/14/22 12:51 [facility] (Rec: 02/14/22 13:00 [facility] [id number]) OT OOR-Ovsw-Cfuehht General Evaluation Areas Needing Assistance Cutting Food,Opening Containers Comments OT Self-Feeding Comments Initially when walking by pt's room, pt able to use the utensil to eat his fruit from a bowl. OT then proceeded to bring in his lunch tray to him . Pt then became tired and not wanting to eat and leaning back in the recliner. M5 OT- IP IADL's Start: 02/13/22 10:51 Freq: Status: Active Protocol: Document 02/13/22 10:51 [facility] (Rec: 02/13/22 11:09 [facility] [id number]) OT-Instrumental Activities of Daily Living Home Safety Awareness Home Safety Comments Pt mainly orientated to his name at this time. If pt going home will need 24/7 assist. M6 OT- IP Functional Cognition Start: 02/13/22 10:51 Freq: Status: Active Protocol: Document 02/14/22 12:51 [facility] (Rec: 02/14/22 13:00 [facility] [id number]) Cognitive Factors Limiting Selfcare Function Cognitive Ability Level of Alertness Alert,Drowsy Patient Orientation Name Attention Span Ability Capable of Focused Attention, Unable to Sustain Attention Ability to Follow Commands Able to Follow One Step Commands with Increased Time, Able to Follow One Step Commands with Repetition Cognitive Comments Cognitive Assessment Comments Pt having trouble to stay awake for eating his lunch and follow commands to help scoot back into the recliner at this time. Nursing notified that pt is very drowsy. M7 OT- IP Mobility and Balance Start: 02/13/22 10:51 Freq: Status: Active Protocol: Document 02/14/22 12:51 [facility] (Rec: 02/14/22 13:00 [facility] [id number]) OT- Bed Mobility Assessment Scooting Scooting to Edge of Bed Maximum Assistance,2 Person Assistance OT-Transfer Assessment Comments Mobility Comments MAX AX 2 to help scoot pt back into the recliner. OT- Balance Assessment Sitting Balance and Reactions Static Sitting Balance Ability Fair M8 OT- IP Objective Assessments Start: 02/13/22 10:51 Freq: Status: Active Protocol: Document 02/13/22 10:51 [facility] (Rec: 02/13/22 11:09 [facility] [id number]) OT Gross Range of Motion Upper Extremity Range of Motion ROM Impairments Not able to fully assess as pt having difficulty to follow directions. OT Strength Comments Strength Comments Pt at least 3-/5 as noted by his assist for transfer and use of FWW. OT-Muscle Tone Assessment Muscle Tone WNL Yes M9 OT- IP Assessment and Plan Start: 02/13/22 10:51 Freq: Status: Active Protocol: Document 02/14/22 12:51 [facility] (Rec: 02/14/22 13:00 [facility] [id number]) OT Summary Assessment and Plan Potential Rehabilitation Potential Good Analytic Complexity at Evaluation Moderate Summary OT Impairments Pain,Balance,Functional Cognition,Functional Mobility, Self-Feeding,Grooming,Dressing ,Toileting,Bathing,Toilet Transfers,Shower Transfers, Activity Tolerance Progress Towards Goals Slow Progress due to Pain,Slow Progress due to Medical Issues,Slow Progress due to Activity Tolerance,Slow Progress due to Cognition Assessment Summary Pt very drowsy today and having more difficulty to follow commands today. Pt will benefit from SNF to help maximize his independence with ADl and mobility needs. Otherwise pt will benefit from home with 24/7 assist and home health or LTC. Goals Self-Feeding Goal Independent Grooming Goal Standby Assistance Dressing Goal Independent Bathing Goal Minimal Assistance Toilet Transfer Goal Independent Shower Transfer Goal Independent Days to Meet Goals 15 Frequency of Treatment Frequency Of Treatment Once a Day Treatment Plan OT Treatment Plan ADL Training,Functional Cognition Training,Functional Mobility,Patient/Family Education,Discharge Planning Discharge Recommendations OT Discharge Recommendations SNF Rehab Transportation Needs at Discharge Wheelchair/Cabulance
--- NOTE | 2022-02-14 12:51 | CM.DPC ---
DCP Ongoing SNF attempts Per MD, pt making progress and likely stable for d/c today or tomorrow. PENELOPE called [place] [facility] and requested review of clinicals for SNF auth and refaxed PT/OT notes and return call from Sandrita stating pt has been approved for SNF auth. PENELOPE updated on barriers of acceptance and she confirms that they would be willing to provide one time auth for non-contracted SNF facility. Barriers to discharge are pt's Shingles dx and requiring an iso/private room and most SNFs currently do not have private room available. PENELOPE called following SNFs: [facility]- unsure if they can accommodate a private room, but reviewed the referral faxed today and will let SW know. [facility]- still no private room available and likely would not accept due to concerns with pt's LTC plan. [facility]- no private room to accommodate [facility]- left msg and requested review and decision. [facility]- decline accepting pt due to prior admissions and too high of care needs. Not wanting to re-review. [facility]- might be able to accommodate private room, willing to review, faxed referral. [facility]- left msg [facility]- checking on bed availability, willing to review, faxed referral [facility]- left msg and faxed referral [facility]- left msg and faxed referral [facility]- left msg and faxed referral [facility]- left msg and faxed referral PENELOPE met bedside with pt and explained role and pt now able to see fully with one eye and slightly with his second. Pt able to participate in discussion and initially states he just wants to go home tonight to my home. SW discussed pt's current need for 2PA and lack of currently having 24/[address] and pt states he'd be willing to go to SNF while getting his home set up better. PENELOPE called pt's Whitney Szymanski and had lengthy discussion regarding barriers to SNF placement and pt getting close for being medically stable by tomorrow to not need hospital level of care and [place] likely to begin denying coverage of his hospital stay and strongly emphasized the importance of having a back up plan. Dtawais Szymanski confirms she recieved the Medicaid application two days ago but has not completed it or placed any calls for LTC. Dtr states she does not feel pt could financially afford 24/7 PP CG in the home or residential placement at a facility for long. SW requested that she begin talking to her siblings regarding likelihood that if no SNF secured by tomorrow then pt would likely need to go to private Respite stay at [facility] or have family take turns staying with him and increasing his caregiver hours. Dtr hesitantly acknowledges understanding and SW stressed that family may need to take on more responsibility at d/c with care and even potential for fiancial assist if respite stay needed as pt's insurance will begin not covering hospital stay once stable for lower level of care and hospital costs far exceeed cost of caregivers or Respite but attempts will continue to be made this afternoon for SNF in [place] and [place] but to be aware pt may need to d/c tomorrow. SW called [facility] and left msg regarding their availability for Respite Stay. Plan: SW to follow closely this afternoon with above SNF's and [place] to determine if any can accept vs return home with increased family and CG assist vs Respite stay at [facility]. LINDA Garnett
--- NOTE | 2022-02-14 15:19 | PT-IP ANOTE ---
Attempted to see pt at 3:19p. Pt was initially responsive and declined PT. Offered bed mobility and pt drifted back to sleep mid-sentence.
--- NOTE | 2022-02-14 16:22 | PM.PN.1 ---
Subjective Subjective Date Patient Seen: 02/14/22 Time Patient Seen: 08:00 Interval history: He has no complaints today. He is sleepy. Denies pain, denies shortness of breath. Wants to go home. Exam Vital Signs (past 8 hours): - 02/14/22 08:55 02/14/22 12:13 02/14/22 12:34 Temperature 97.8 F Pulse Rate 85 Respiratory Rate 18 Blood Pressure 99/46 L Pulse Oximetry 95 90 L 93 Oxygen Delivery Method Nasal Cannula Room Air Oxygen Flow Rate 2 0 02/14/22 15:48 Temperature 97.9 F Pulse Rate 72 Respiratory Rate 18 Blood Pressure 128/64 Pulse Oximetry 96 Oxygen Delivery Method Oxygen Flow Rate 0 Oxygen Delivery Method Room Air Oxygen Flow Rate 0 Narrative Exam Narrative: GEN:?sitting in chair, sleepy, but arousable HEENT: right eyelid mild swelling, left eye is swollen and shut with erythematous conjunctiva, rash with crusted lesions to left eyelid, forehead, scalp, nasal involvement on tip and left side, overal appears improving CHEST: diminished but clear bilaterally CV: regular rate and rhythm, with no murmurs EXTR: brawny edema, nonpitting bilaterally SKIN: rash as described above NEURO:?no focal deficits noted Objective Labs Result Diagrams: 02/14/22 06:32 02/14/22 06:32 Labs: Laboratory Results - last 24 hr 02/14/22 02/14/22 06:32 06:32 WBC 6.0 RBC 3.71 L Hgb 10.7 L Hct 32.1 L MCV 86.7 MCH 28.7 MCHC 33.2 RDW 19.2 H Plt Count 152 Sodium 138 Potassium 3.9 Chloride 105 Carbon Dioxide 30 BUN 18 Creatinine 1.29 H Estimated GFR 54 L BUN/Creatinine Ratio 14.0 Glucose 110 Calcium 8.0 L [facility] Medical History (Updated 02/10/22 @ 18:25 by Kary Christian DO) Acquired hypothyroidism (09/16/16) Actinic keratosis Basal cell carcinoma 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) Colon polyps COVID-19 virus infection (01/24/22) CVA (cerebral vascular accident) Depression (06/29/15) Erectile dysfunction (02/12/16) Essential hypertension (06/29/15) Gout Hemorrhoids Hyperlipemia Insomnia Metabolic encephalopathy Obstructive sleep apnea Osteoarthritis Pneumonia due to COVID-19 virus Primary insomnia (09/16/16) 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 Acute encephalitis -likely secondary to multiple acute and chronic illnesses, due to waxing and waning status, doubt infectious encephalitis/meniningitis -pt refused LP , MRI unremarkable for acute changes -continue telemetry monitoring 2. Acute herpes Zoster, zoster keratitis -switch acyclovir to valtrex, monitor creatinine daily -stop antibiotics, doubt bacterial cellulitis -appears improving on 02/14 -plan for 10 day course, which would be through 02/18 3. ZAHRA -mild baseline of 0.78 to 1.37, but improving to 1.29 -stopped acyclovir on 02/13, switched to valtrex -currently no need for renal adjustment to dose -monitor creatinine daily 3. Debility/Weakness -complicated with poor vision now and as above -PT/OT 4. CHF diastolic -will order IV lasix as needed -for now appears neaur euvolemia 5. Hypertension -continue amlodipine -hold atenolol while monitoring creatinine 6. Gout -hold allopurinol while monitoring creatinine 7. Depression - continue quetiapine , duloxetine. 8. BPH -continue tamsulosin 9. H/O CVA -stable -continue telemetry 10. NATTY - CPAP Code status: Full Prophylaxis: Lovenox Time Spent With Patient Critical Care time: I spent a total of [] minutes of critical care time on this patient's care today; this time is exclusive of procedural time. Quality VTE Deep Vein Thrombosis/Pulmonary Embolism Present on Admission: No
[2022-02-14] MEDS: ACETAMINOPHEN 325 MG TABLET 650 MG PO (18:26)
[2022-02-14] MEDS: TAMSULOSIN 0.4 MG CAPSULE PO (21:15)
[2022-02-14] MEDS: MELATONIN 3 MG TABLET 6 MG PO (21:15)
[2022-02-15] VITALS (7 sets, daily range): BP systolic 121–150; BP diastolic 59–63; PULSE 79–90; RESP 16–18; TEMP 36.3–37; O2SAT 92–97; BMI 34.5
[2022-02-15 07:01] LABS: BUN Creatinine Ratio 14.7 (6-22); Blood Urea Nitrogen 15 mg/dL (9-20); Calcium 8.4 mg/dL (8.4-10.2); Carbon Dioxide 27 mmol/L (22-32); Chloride 105 mmol/L (98-107); Estimated Glomerular Filt Rate > 60 mL/min (>60); Glucose 97 mg/dL (80-110); HEMOLYSIS 39 (0-50); Potassium 4.4 mmol/L (3.4-5.1); Sodium 136 mmol/L (137-145)
--- NOTE | 2022-02-15 07:45 | PM.PN.1 ---
Subjective Subjective Date Patient Seen: 02/15/22 Interval history: 86 yo gentleman w/underlying dementia who is presently hospital day #5 admitted w/herpes zoster opthalmicus and keratitis. Patient is very pleasant today. He denies any complaints. He states his vision is fine. Expresses desire to go home. RN notes that he does still have some confusion and remains at high risk for falling. Exam Vital Signs (past 8 hours): - 02/15/22 02:30 02/15/22 06:00 Temperature 97.4 F L 98.6 F Pulse Rate 79 90 Respiratory Rate 16 16 Blood Pressure 121/59 L 150/60 H Pulse Oximetry 94 94 Oxygen Flow Rate 0 0 Oxygen Delivery Method Nasal Cannula Oxygen Flow Rate 0 Narrative Exam Narrative: GEN: very pleasant elderly male,Alert and oriented x 2, NAD HEENT:NC, left eye remains significantly edematous, conjunctiva with significant edema, zoster rash with crusted lesions noted to the left upper eyelid, forehead, scalp, temporal region, left nasal bridge and tip of the nose, patient cannot spontaneously open his eye, some areas of his skin are bleeding secondary to excoriation CHEST: Respiratory excursions symmetric, diminished but CTAB CV: RRR, no M/R/G ABD: Soft, obese, NT/ND, BT present in all 4 quadrants, no organomegaly or masses appreciated EXTR: warm, well perfused, no C/C, [place] nonpitting edema noted to the bilateral lower extremities SKIN: warm and dry, no rash NEURO:? alert and oriented x2, otherwise nonfocal Objective Labs Result Diagrams: 02/14/22 06:32 02/15/22 06:15 Labs: Laboratory Results - last 24 hr 02/15/22 06:15 Sodium 136 L Potassium 4.4 Chloride 105 Carbon Dioxide 27 BUN 15 Creatinine 1.02 Estimated GFR > 60 BUN/Creatinine Ratio 14.7 Glucose 97 Calcium 8.4 [facility] Medical History (Updated 02/10/22 @ 18:25 by Kary Christian DO) Acquired hypothyroidism (09/16/16) Actinic keratosis Basal cell carcinoma 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) Colon polyps COVID-19 virus infection (01/24/22) CVA (cerebral vascular accident) Depression (06/29/15) Erectile dysfunction (02/12/16) Essential hypertension (11/05/15) Gout Hemorrhoids Hyperlipemia Insomnia Metabolic encephalopathy Obstructive sleep apnea Osteoarthritis Pneumonia due to COVID-19 virus Primary insomnia (09/16/16) 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 Severe periorbital herpes zoster outbreak and keratitis patient has shown ongoing improvement. Lesions all appear to be crusted over. He no longer requires isolation precautions. Continues on oral Valtrex, erythromycin ointment, and acyclovir ointment. He continues to have significant swelling which makes his vision in his left eye. . 2. acute metabolic encephalopathy No evidence for encephalitis by MRI. Patient refused LP. He does appear to be slowly improving. 3.Worsening weakness and reported pseudo blindness Likely secondary to blurred vision from zoster as well as swelling.? Patient does remain a high fall risk. 4. ZAHRA resolved. Creatinine is back down to 1.02. 5. Chronic diastolic Congestive heart failure BNP was 1470 on admission.? Appears euvolemic currently. 6. Hypertension Remains on amlodipine and atenolol.? Blood pressures remain normotensive. 7. Gout Continue allopurinol 8. Hyperlipidemia Presently untreated 9. Depression Continue quetiapine and duloxetine. 10. BPH Continue tamsulosin 11. Prior stroke Patient appears to be at baseline. 12. Obstructive sleep apnea Non compliant with CPAP. Code status Full Prophylaxis On Lovenox Disposition Presently pending . Insurance has approved prison facility placement. However he was requiring a private room due to isolation precautions. Isolation and can be transferred to a shared room in a nursing facility. Time Spent With Patient Critical Care time: I spent a total of [] minutes of critical care time on this patient's care today; this time is exclusive of procedural time. Quality VTE Deep Vein Thrombosis/Pulmonary Embolism Present on Admission: No
[2022-02-15] MEDS: ENOXAPARIN 40 MG/0.4 ML SYRINGE SUBCUT (10:23)
[2022-02-15] MEDS: LACTOBACILLUS ACIDOPHILUS TABLET 2 EACH PO ×2 (10:28→20:38)
[2022-02-15] MEDS: ACYCLOVIR 5% OINT 15 GM 1 APPLIC TOP ×4 (10:28→20:39)
[2022-02-15] MEDS: PANTOPRAZOLE DR 40 MG TABLET PO ×2 (10:29→20:38)
[2022-02-15] MEDS: CHOLECALCIFEROL (VITAMIN D3) 1,000 UNIT TABLET 2000 UNIT PO (10:29)
[2022-02-15] MEDS: AMLODIPINE 5 MG TABLET 10 MG PO (10:29)
[2022-02-15] MEDS: valACYclovir 500 MG TABLET 1000 MG PO ×3 (10:30→20:38)
[2022-02-15] MEDS: DULOXETINE 20 MG CAPSULE PO (10:30)
[2022-02-15] MEDS: ERYTHROMYCIN OPHTH 1 GM OINT 1 APPLIC EYE-LEFT ×4 (10:30→20:39)
[2022-02-15] MEDS: POTASSIUM CHLORIDE 20 MEQ TAB PO (10:30)
[2022-02-15] MEDS: SODIUM CHLORIDE 0.9% FLUSH 10 ML IV ×2 (10:32→20:39)
--- NOTE | 2022-02-15 12:01 | CM.DPC ---
DCP Ongoing SNF planning Per MD, now due to pt's length of tx for shingles dx and no open sores but crusted over, pt was able to be taken off contact precautions and would no longer require a private room or isolation. SW contacted following SNFs to update on no private room needed: [facility]- now stating due to unknown if pt got 2nd booster, they likely cannot accept [facility]- concerned since they received one time auth from [facility] that they will only auth a very short rehab stay and without active Medicaid then they worry about pt's LTC plan. Decline accepting pt. [facility]- decline due to LTC plan. [facility]- decline as not [facility] preferred facility and likely would not get auth for long and LTC plan concerns. [facility]- left another msg [facility]- left another msg [facility]- left another msg [facility]- left another msg [facility]- left another msg [facility]- [facility] beds [facility]- left msg and faxed referral [facility]- left msg and faxed referral [facility]- left msg and faxed referral [facility]- left msg and faxed referral [facility]- have beds, contracted with [facility], willing to review and faxed referral [facility]- willing to review now pt does not need iso room, will call back SW called [facility] again and left msg for TA Villagomez and also sales order administrator Benigno Barnard to determine if they have availability for Respite stay if needed. Plan: SW to follow closely for SNF review for placement and f/u call with Dtr to discuss if SNF acceptance vs backup plan discussed yesterday of Private Respite Stay at [facility] vs home with family and increased CGs. Saray Meeks, UNIFORMER
--- NOTE | 2022-02-15 12:14 | OT.IP.TRT ---
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) Occupational Therapy Treatment Note M2 OT-IP Current Condition Start: 02/13/22 10:51 Freq: Status: Active Protocol: Document 02/13/22 10:51 [facility] (Rec: 02/13/22 11:09 [facility] [id number]) Occupational Therapy Current Condition Current Condition Evaluation Date 02/13/22 Treatment Diagnosis Generalized weakness Diagnosis Onset Date 02/10/22 M3 OT- IP Subjective and Pain Start: 02/13/22 10:51 Freq: Status: Active Protocol: Document 02/15/22 11:58 [facility] (Rec: 02/15/22 12:28 [facility] [id number]) OT- Subjective Occupational Therapy Visit Type Type Treatment Note Visit Start Time 11:58 Visit Stop Time 12:14 Total Visit Minutes 16 Occupational Therapy Visit Comments Patient Comments Pt not wanting to get up but ready to eat lunch. Nursing states pt no longer on contact precautions and agrees that pt's door to be left open so easier to check on the pt for safety. In addition pt has a chair alarm attached to him. Patient/Caregiver Goals TO go home. OT Pain Assessment Pain When Pain Assessed At Rest Pain Present Pain Present Pain Reported Location Buttock Pain Behaviors Facial Grimacing M4 OT- IP ADL's Start: 02/13/22 10:51 Freq: Status: Active Protocol: Document 02/15/22 11:58 [facility] (Rec: 02/15/22 12:28 [facility] [id number]) OT SKF-Zqle-Pycfdvt General Evaluation Self-Feeding Ability Independent Comments OT Self-Feeding Comments Pt able to eat on his own today and more alert after initial set-up of the tray. OT ADL-Grooming General Evaluation Areas Needing Assistance Retrieving/Set-up of Grooming Items Comments OT Grooming Comments Pt able to wash his face after set-up of wash cloth. M5 OT- IP IADL's Start: 02/13/22 10:51 Freq: Status: Active Protocol: Document 02/13/22 10:51 [facility] (Rec: 02/13/22 11:09 [facility] [id number]) OT-Instrumental Activities of Daily Living Home Safety Awareness Home Safety Comments Pt mainly orientated to his name at this time. If pt going home will need 24/ assist. M6 OT- IP Functional Cognition Start: 02/13/22 10:51 Freq: Status: Active Protocol: Document 02/15/22 11:58 [facility] (Rec: 02/15/22 12:28 [facility] [id number]) Cognitive Factors Limiting Selfcare Function Cognitive Ability Level of Alertness Alert Patient Orientation Name,Place Attention Span Ability Capable of Focused Attention, Unable to Sustain Attention Ability to Follow Commands Able to Follow One Step Commands with Increased Time, Able to Follow One Step Commands with Repetition Cognitive Comments Cognitive Assessment Comments Pt more alert and able to express his needs and wants today. Pt well aware of how to use the call light today. Pt is insistent that he can care for himself at this time. OT- Vision and Hearing OT- Vision Assessment Vision Assessment Comments Pt only able to open his left eye a little, and preferring to just use his right eye to see at this time. Pt able to accurately read the clock today. Pt's level of cognition appears to be closer to his baseline level. M8 OT- IP Objective Assessments Start: 02/13/22 10:51 Freq: Status: Active Protocol: Document 02/13/22 10:51 [facility] (Rec: 02/13/22 11:09 [facility] [id number]) OT Gross Range of Motion Upper Extremity Range of Motion ROM Impairments Not able to fully assess as pt having difficulty to follow directions. OT Strength Comments Strength Comments Pt at least 3-/5 as noted by his assist for transfer and use of FWW. OT-Muscle Tone Assessment Muscle Tone WNL Yes M9 OT- IP Assessment and Plan Start: 02/13/22 10:51 Freq: Status: Active Protocol: Document 02/15/22 11:58 [facility] (Rec: 02/15/22 12:28 [facility] [id number]) OT Summary Assessment and Plan Potential Rehabilitation Potential Good Analytic Complexity at Evaluation Moderate Summary OT Impairments Pain,Balance,Functional Cognition,Functional Mobility, Self-Feeding,Grooming,Dressing ,Toileting,Bathing,Toilet Transfers,Shower Transfers, Activity Tolerance Progress Towards Goals Slow Progress due to Pain,Slow Progress due to Activity Tolerance,Slow Progress due to Cognition Assessment Summary Pt more alert and orientated today and had no difficulties for self feeding himself today . Pt adamant that he is going home. Pt will need 24/7 assist and home health if going home versus SNF. Goals Self-Feeding Goal Independent Grooming Goal Standby Assistance Dressing Goal Independent Toileting Goal Standby Assistance Bathing Goal Minimal Assistance Toilet Transfer Goal Independent Shower Transfer Goal Independent Days to Meet Goals 15 Frequency of Treatment Frequency Of Treatment Once a Day Treatment Plan OT Treatment Plan ADL Training,Functional Cognition Training,Functional Mobility,Patient/Family Education,Discharge Planning Discharge Recommendations OT Discharge Recommendations SNF Rehab Transportation Needs at Discharge Private Vehicle,Wheelchair/ Cabulance
--- NOTE | 2022-02-15 15:03 | PT.IPTN ---
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) Physical Therapy Treatment Note M2 PT-IP Current Condition Start: 02/12/22 12:02 Freq: NEEDED Status: Active Protocol: Document 02/13/22 09:29 [facility] (Rec: 02/13/22 11:58 SP [id number]) Physical Therapy Current Condition Current Condition Evaluation Date 02/12/22 Treatment Diagnosis weakness, impaired mobility/ gait Onset Date 02/10/22 M3 PT-IP Subjective Start: 02/12/22 12:02 Freq: NEEDED Status: Active Protocol: Document 02/15/22 15:03 [facility] (Rec: 02/15/22 15:44 [facility] [id number]) Subjective Physical Therapy Visit Type Type Treatment Note Visit Start Time 14:48 Visit Stop Time 15:03 Total Visit Minutes 15 Number of [employer]ABR[employer] INSPECTOR Visits 2 Physical Therapy Visit Comments Patient Comments Pt agreeable to working with therapy. Therapy Pain Assessment Pain When Pain Assessed At Rest Pain Present Pain Present Denied Pain M4 PT-IP Mobility and Gait Start: 02/12/22 12:02 Freq: NEEDED Status: Active Protocol: Document 02/15/22 15:03 [facility] (Rec: 02/15/22 15:44 [facility] [id number]) PT-Bed Mobility Assessment Rolling Level of Assist Contact Guard Assistance, Minimal Assistance,1 Person Assistance Sit to Supine Sit to Supine Standby Assistance,Minimal Assistance,Moderate Assistance ,Bedrails Scooting Scooting to Edge of Bed Moderate Assistance Scooting Up and Down in Bed Minimal Assistance PT-Transfer Assessment Sit to and From Stand Sit to and from Stand Minimal Assistance,Use of Upper Extremities Equipment Transfer Assistive Device Gait Belt,Front Wheeled Walker Orthotic/Prosthetic Devices or Brace: No Transfers Transfer Destination Bed Transfer Technique pt ambulated using FWW Transfer Ability Level of Assist Contact Guard Assistance, Minimal Assistance,Moderate Assistance,Use of Upper Extremities Comments Mobility Comments Pt seated in chair upon arrival and agreeable to PT to return to bed. Denies pain. Sit<>Stand w/ FWW CGA, vc for hand placement and keeping FWW close. Pt ambulated ~5 ft to bedside w/ FWW, CGA, cueing for walker management, sequencing, and backing up to EOB fully. Pt stood ~ 5 min for brief and gown change, then sat EOB w/ min A, vc for controlled descent and hand placement. Pt rolled from sitting EOB to supine w/ mod A for leg management and vc for hand placement and sequencing . Min A for scooting in bed w/ use of handrails. Pt left in bed w/ warm blankets, bed alarm, call light and all needs within reach. Gait Assessment Gait Gait Assistance Required: Contact Guard Assist Distance (Feet) 5 Able to Maintain Weight Bearing Status Yes During Gait Assistive Devices Assistive Device Gait Belt,Front Wheeled Walker Orthotic/Prosthetic Devices or Brace: No Gait Deviations General Gait Pattern Antalgic,Flexed Trunk Factors Limiting Gait Function Factors Limiting Gait Function Decreased Activity Tolerance, Decreased Strength,Difficulty Following Directions,Pain,Poor Balance,Poor Safety Awareness ,Respiratory Distress Comments Gait Comments gait w/ FWW, cued upright posture, body closer to FWW, increase stride and foot clearance. PT-Balance Assessment Sitting Balance and Reactions Static Sitting Balance Ability Fair Dynamic Sitting Balance Ability Fair Standing Balance and Reactions Static Standing Balance Ability Fair Dynamic Standing Balance Ability Fair Device Used FWW M5 PT-IP Objective Assessments Start: 02/12/22 12:02 Freq: NEEDED Status: Active Protocol: Document 02/12/22 12:00 [facility] (Rec: 02/12/22 12:19 [facility] [id number]) Orientation Orientation/Cognition Level of Alertness Lethargic Orientation Name,Situation Language Function Ability No Deficits Noted Safety Awareness Decreased Safety Awareness Memory Description Short Term Impaired Comments He denies vision changes but left eye swollen and draining. He is unable or not willing to give information about his prior level of function. Gross Range of Motion Upper Extremity ROM Assessment Within Functional Limits Lower Extremity ROM Assessment Within Functional Limits Strength Upper Extremity Strength Assessment Bilaterally Impaired Lower Extremity Strength Assessment Bilaterally Impaired Comments Strength Comments generalized weakness throughout, pt not willing to participate in manual muscle testing with complaints of not feeling well Coordination Assessment Gross Coordination Gross Coordination WNL Sensation Assessment Comments Sensation Comments he denies changes, skin on distal LE's is discolored and dry Muscle Tone Muscle Tone WNL Yes M6 PT-IP Treatment Start: 02/12/22 12:02 Freq: NEEDED Status: Active Protocol: Document 02/15/22 15:03 [facility] (Rec: 02/15/22 15:44 [facility] [id number]) Physical Therapy Treatment Education Education Provided Safety M7 PT-IP Assessment and Plan Start: 02/12/22 12:02 Freq: NEEDED Status: Active Protocol: Document 02/15/22 15:03 [facility] (Rec: 02/15/22 15:44 [facility] [id number]) PT Summary Assessment and Plan Potential Rehabilitation Potential Fair Status of Condition at Evaluation Evolving Summary Impairments Strength,Balance,Cognition,Bed Mobility,Transfers,Gait, Activity Tolerance Progress Towards Goals Progressing Toward Goals,Slow Progress due to Activity Tolerance Assessment Summary Pt was able to make needs know and demonstrated more alertness and denied pain. Pt requires Min A - Mod A and verbal cues for scooting and rolling from sitting EOB to supine w/ LE management. He demonstrates good standing tolerance w/ CGA but requires Mod A w/ FWW during gait for walker management and sequencing. End of treatment pt was confused about going home today and thought daughter daughter was at hospital or on the phone to talk to him. Pt is unsafe requiring cues for sequencing mobility and proper use of FWW high fall risk, recommending 24/7 available HHPT vs SNF for improvement in strength and safe functional mobillity independence with further safety education. Goals Bed Mobility Goal Standby Assistance Transfer Goal Standby Assistance,Front Wheeled Walker Gait Goal Standby Assistance,Front Wheel Walker Gait Distance 150 feet Other Goals Up and down 3 steps with rail and CG assist in preparation for going home Days to Meet Goals 7 Frequency of Treatment Frequency Of Treatment Once a Day Treatment Plan Physical Therapy Treatment Plan Bed Mobility Training,Transfer Training,Gait Training, Therapeutic Exercise,Balance Retraining,Discharge Planning, Neuromuscular Re-ed Other Recommendations and Next Treatment bed mob, transfers and gait w/ Focus LRAD, assess gait without AD for safety stability if woody FWW and walks away. Precautions Other Precautions high fall risk at this time Recommendations To Nursing Amount of Assist Needed 1 Person Assist Discharge Recommendations PT Discharge Recommendations Home with 24/7 Assist Available,SNF Rehab,Home vs SNF Transportation Needs at Discharge Private Vehicle,Wheelchair/ Cabulance
[2022-02-15] MEDS: TAMSULOSIN 0.4 MG CAPSULE PO (20:38)
[2022-02-15] MEDS: MELATONIN 3 MG TABLET 6 MG PO (20:38)
[2022-02-16] VITALS: BP 121/72; PULSE 86; RESP 18; TEMP 36.8; O2SAT 98
[2022-02-16 03:55] VITALS: BP 141/65; PULSE 81; RESP 18; TEMP 36.8; O2SAT 93
[2022-02-16 08:00] VITALS: BP 102/46; PULSE 90; RESP 19; TEMP 36.3; O2SAT 98
[2022-02-16] MEDS: ACYCLOVIR 5% OINT 15 GM 1 APPLIC TOP ×2 (09:06→13:51)
[2022-02-16] MEDS: valACYclovir 500 MG TABLET 1000 MG PO ×2 (09:06→13:51)
[2022-02-16] MEDS: LACTOBACILLUS ACIDOPHILUS TABLET 2 EACH PO (09:06)
[2022-02-16] MEDS: ERYTHROMYCIN OPHTH 1 GM OINT 1 APPLIC EYE-LEFT ×2 (09:06→13:51)
[2022-02-16] MEDS: ENOXAPARIN 40 MG/0.4 ML SYRINGE SUBCUT (09:07)
[2022-02-16] MEDS: DULOXETINE 20 MG CAPSULE PO (09:07)
[2022-02-16] MEDS: POTASSIUM CHLORIDE 20 MEQ TAB PO (09:07)
[2022-02-16] MEDS: CHOLECALCIFEROL (VITAMIN D3) 1,000 UNIT TABLET 2000 UNIT PO (09:07)
[2022-02-16] MEDS: PANTOPRAZOLE DR 40 MG TABLET PO (09:07)
[2022-02-16] MEDS: SODIUM CHLORIDE 0.9% FLUSH 10 ML IV (09:08)
--- NOTE | 2022-02-16 10:43 | PT.IPTN ---
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) Physical Therapy Treatment Note M2 PT-IP Current Condition Start: 02/12/22 12:02 Freq: NEEDED Status: Active Protocol: Document 02/13/22 09:29 SP (Rec: 02/13/22 11:58 SP [id number]) Physical Therapy Current Condition Current Condition Evaluation Date 02/12/22 Treatment Diagnosis weakness, impaired mobility/ gait Onset Date 02/10/22 M3 PT-IP Subjective Start: 02/12/22 12:02 Freq: NEEDED Status: Active Protocol: Document 02/16/22 10:43 NBM (Rec: 02/16/22 11:22 NBM [id number]) Subjective Physical Therapy Visit Type Type Treatment Note Visit Start Time 10:16 Visit Stop Time 10:43 Total Visit Minutes 27 Number of COMBINATION OPERATOR Visits 3 Physical Therapy Visit Comments Patient Comments Pt agreeable to working with therapy. Therapy Pain Assessment Pain When Pain Assessed At Rest Pain Present Pain Present Denied Pain M4 PT-IP Mobility and Gait Start: 02/12/22 12:02 Freq: NEEDED Status: Active Protocol: Document 02/16/22 10:43 NBM (Rec: 02/16/22 11:22 NBM [id number]) PT-Bed Mobility Assessment Rolling Level of Assist Contact Guard Assistance, Minimal Assistance,1 Person Assistance Sit to Supine Sit to Supine Standby Assistance,Minimal Assistance,Moderate Assistance ,Bedrails Scooting Scooting Up and Down in Bed Minimal Assistance PT-Transfer Assessment Sit to and From Stand Sit to and from Stand Minimal Assistance,Use of Upper Extremities Equipment Transfer Assistive Device Gait Belt,Front Wheeled Walker Orthotic/Prosthetic Devices or Brace: No Transfers Transfer Destination Bed Transfer Technique pt ambulated using FWW Transfer Ability Level of Assist Minimal Assistance,Moderate Assistance,Maximum Assistance, Use of Upper Extremities Comments Mobility Comments Pt seated in chair upon arrival and agreeable to PT to return to ambulate and return to bed. Denies pain. Sit<> Stand w/ FWW CGA, cues for keeping FWW close. Pt ambulated ~10 ft w/ FWW, CGA for balance, Johnathon for walker management, cues for slower pace, upright posture and body closer to walker. Pt attempted to set walker aside during ambulation. Stand <> sit on bench min A, vc for hand placement. Seated marching x 10 Kendall, Toe raises x 10, heel raises x 15. Sit<> Stand w/ FWW min A, ambulated w/ FWW ~15ft CGA for balance but Johnathon for walker management . Pt then sat EOB w/ min A, vc for sequencing, controlled descent and hand placement. Pt rolled from sitting EOB to supine w/ mod A for leg management and vc for hand placement and sequencing. Min A for scooting in bed. Pt left in bed w/ warm blankets, bed alarm, call light and all needs within reach. Gait Assessment Gait Gait Assistance Required: Minimum Assistance Distance (Feet) 25 Able to Maintain Weight Bearing Status Yes During Gait Assistive Devices Assistive Device Gait Belt,Front Wheeled Walker Orthotic/Prosthetic Devices or Brace: No Gait Deviations General Gait Pattern Antalgic,Flexed Trunk Factors Limiting Gait Function Factors Limiting Gait Function Decreased Activity Tolerance, Decreased Strength,Difficulty Following Directions,Pain,Poor Balance,Poor Safety Awareness ,Respiratory Distress Comments Gait Comments gait w/ FWW Johnathon for walker management, CGA for balance- verbal and tactile cues for body closer to FWW,upright posture, slower pace. Pt attempted to set FWW aside during ambulation. PT-Balance Assessment Sitting Balance and Reactions Static Sitting Balance Ability Fair Dynamic Sitting Balance Ability Fair Standing Balance and Reactions Static Standing Balance Ability Fair Dynamic Standing Balance Ability Fair Device Used FWW M5 PT-IP Objective Assessments Start: 02/12/22 12:02 Freq: NEEDED Status: Active Protocol: Document 02/12/22 12:00 DLM (Rec: 02/12/22 12:19 DLM [id number]) Orientation Orientation/Cognition Level of Alertness Lethargic Orientation Name,Situation Language Function Ability No Deficits Noted Safety Awareness Decreased Safety Awareness Memory Description Short Term Impaired Comments He denies vision changes but left eye swollen and draining. He is unable or not willing to give information about his prior level of function. Gross Range of Motion Upper Extremity ROM Assessment Within Functional Limits Lower Extremity ROM Assessment Within Functional Limits Strength Upper Extremity Strength Assessment Bilaterally Impaired Lower Extremity Strength Assessment Bilaterally Impaired Comments Strength Comments generalized weakness throughout, pt not willing to participate in manual muscle testing with complaints of not feeling well Coordination Assessment Gross Coordination Gross Coordination WNL Sensation Assessment Comments Sensation Comments he denies changes, skin on distal LE's is discolored and dry Muscle Tone Muscle Tone WNL Yes M6 PT-IP Treatment Start: 02/12/22 12:02 Freq: NEEDED Status: Active Protocol: Document 02/16/22 10:43 NBM (Rec: 02/16/22 11:22 [facility] [id number]) Physical Therapy Treatment Exercises Exercises Ankle Pumps,Seated Knee Flexion/Extension Education Education Provided Safety Other Treatments Other Treatment Performed Education for fall prevention: removing cords and rugs from the floor - pt states has many rugs around the home. M7 PT-IP Assessment and Plan Start: 02/12/22 12:02 Freq: NEEDED Status: Active Protocol: Document 02/16/22 10:43 NB (Rec: 02/16/22 11:22 [facility] [id number]) PT Summary Assessment and Plan Potential Rehabilitation Potential Fair Status of Condition at Evaluation Evolving Summary Impairments Strength,Balance,Cognition,Bed Mobility,Transfers,Gait, Activity Tolerance Progress Towards Goals Progressing Toward Goals,Slow Progress due to Activity Tolerance Assessment Summary Pt demonstrates impulsivity w/ gait w/ FWW requiring Johnathon w/ walker management and extensive cues for keeping body closer, upright posture, slower pacing, and not to set walker aside. Pt is unsafe requiring cues for sequencing mobility and proper use of FWW high fall risk, recommending SNF Rehab or else 24/7 available HHPT for improvement in strength and safe functional mobillity independence with further safety education. Goals Bed Mobility Goal Standby Assistance Transfer Goal Standby Assistance,Front Wheeled Walker Gait Goal Standby Assistance,Front Wheel Walker Gait Distance 150 feet Other Goals Up and down 3 steps with rail and CG assist in preparation for going home Days to Meet Goals 7 Frequency of Treatment Frequency Of Treatment Once a Day Treatment Plan Physical Therapy Treatment Plan Bed Mobility Training,Transfer Training,Gait Training, Therapeutic Exercise,Balance Retraining,Discharge Planning, Neuromuscular Re-ed Other Recommendations and Next Treatment bed mob, transfers and gait w/ Focus LRAD, assess gait without AD for safety stability if woody FWW and walks away. Precautions Other Precautions high fall risk at this time Recommendations To Nursing Amount of Assist Needed 1 Person Assist Discharge Recommendations PT Discharge Recommendations Home with 24/7 Assist Available,SNF Rehab,Home vs SNF Other Discharge Recommendations SNF Rehab recommendation. He would need 24/7 assist to return home Transportation Needs at Discharge Private Vehicle,Wheelchair/ Cabulance
--- NOTE | 2022-02-16 12:10 | CM.DPC ---
Addendum entered by Mell Pérez R.N. 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 Resume referral sent to Sanjuanita TADEO, RN/PT/OT/SPECIALTY TRANSFORMER ASSEMBLER/BA. Spoke with both Tolu and Sandrita. Sandrita states they will see within 48 hours of receiving referral on Friday. Notified APS by phone of case regarding patient as a vulnerable adult and could use more caregiving. AXEL Original Note: Discharge Planning Note: Patient has been cleared medically for discharge. Patient expresses desire to return home. Spoke with angela Szymanski regarding need for transportation at 3pm today. She states she is disappointed we cannot keep nor find a place for him. This DCP neighborhood planner explained reasons that he needs to be discharged today. Reiterated with her that he has capacity to make his own decisions and he desires to return home, as well, he has been medically cleared. Educated daughter regarding need to hire more caregivers/increase caregiving hours. (He currently has caregivers during week). Discussed that family needs to step up until cg hours are increased; discussed her calling caregiving agencies to secure caregivers (leaving [employer] booklet in the room for her). He will need 24/7 support while he is at home until he strengthens. Discussed we will order Home Health RN/PT/OT/SPECIALTY TRANSFORMER ASSEMBLER/bath aide and explained services for which she is amenable. P: Discharge today, daughter to provide transportation at 3pm Kika Pérez RN/DCP
--- NOTE | 2022-02-16 12:45 | OT.IP.TRT ---
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) Occupational Therapy Treatment Note M2 OT-IP Current Condition Start: 02/13/22 10:51 Freq: Status: Active Protocol: Document 02/13/22 10:51 [facility] (Rec: 02/13/22 11:09 [facility] [id number]) Occupational Therapy Current Condition Current Condition Evaluation Date 02/13/22 Treatment Diagnosis Generalized weakness Diagnosis Onset Date 02/10/22 M3 OT- IP Subjective and Pain Start: 02/13/22 10:51 Freq: Status: Active Protocol: Document 02/16/22 13:04 [facility] (Rec: 02/16/22 13:13 [facility] [id number]) OT- Subjective Occupational Therapy Visit Type Type Treatment Note Visit Start Time 12:46 Visit Stop Time 12:56 Total Visit Minutes 10 Occupational Therapy Visit Comments Patient Comments Pt initially agreed to do cognitive assessment. Patient/Caregiver Goals Pt adamant to go home. M4 OT- IP ADL's Start: 02/13/22 10:51 Freq: Status: Active Protocol: Document 02/15/22 11:58 [facility] (Rec: 02/15/22 12:28 [facility] [id number]) OT OHQ-[id number] General Evaluation Self-Feeding Ability Independent Comments OT Self-Feeding Comments Pt able to eat on his own today and more alert after initial set-up of the tray. OT ADL-Grooming General Evaluation Areas Needing Assistance Retrieving/Set-up of Grooming Items Comments OT Grooming Comments Pt able to wash his face after set-up of wash cloth. M5 OT- IP IADL's Start: 02/13/22 10:51 Freq: Status: Active Protocol: Document 02/13/22 10:51 [facility] (Rec: 02/13/22 11:09 [facility] [id number]) OT-Instrumental Activities of Daily Living Home Safety Awareness Home Safety Comments Pt mainly orientated to his name at this time. If pt going home will need 17/03 assist. M6 OT- IP Functional Cognition Start: 02/13/22 10:51 Freq: Status: Active Protocol: Document 02/16/22 13:04 [facility] (Rec: 02/16/22 13:13 [facility] [id number]) Cognitive Factors Limiting Selfcare Function Cognitive Ability Level of Alertness Alert,Confusional State Patient Orientation Name Attention Span Ability Capable of Focused Attention, Capable of Sustained Attention Ability to Follow Commands Able to Follow One Step Commands with Increased Time, Able to Follow One Step Commands with Repetition Memory Description Short Term Impaired,Working Impaired Cognitive Tests SLUMS Pt initially agreed to try SLUM and then having difficulty and states, I just woke up and do not want to do this. I am fine and have help at home. Pt states however does not know where his cell phone or Life Alert button went. Pt scored 3/9 for far, pt thought it was 1922, and aware he is in [facility] , and able to add 3+ 20 , and able to recall 5 animals in one minute. Cognitive Comments Cognitive Assessment Comments Pt much more alert but still decreased safety awareness as per DISTRICT PLANT SUPERVISOR pt needing cues and assist to keep the FWW close to him, pt did not realize he did not have a pillow under his legs when asked if he wanted a pillow underneath his legs. Pt not aware or remember that his daughter has his Life Alert and phone. M7 OT- IP Mobility and Balance Start: 02/13/22 10:51 Freq: Status: Active Protocol: Document 02/14/22 12:51 [facility] (Rec: 02/14/22 13:00 [facility] [id number]) OT- Bed Mobility Assessment Scooting Scooting to Edge of Bed Maximum Assistance,2 Person Assistance OT-Transfer Assessment Comments Mobility Comments MAX AX 2 to help scoot pt back into the recliner. OT- Balance Assessment Sitting Balance and Reactions Static Sitting Balance Ability Fair M8 OT- IP Objective Assessments Start: 02/13/22 10:51 Freq: Status: Active Protocol: Document 02/13/22 10:51 [facility] (Rec: 02/13/22 11:09 [facility] [id number]) OT Gross Range of Motion Upper Extremity Range of Motion ROM Impairments Not able to fully assess as pt having difficulty to follow directions. OT Strength Comments Strength Comments Pt at least 3-/5 as noted by his assist for transfer and use of FWW. OT-Muscle Tone Assessment Muscle Tone WNL Yes M9 OT- IP Assessment and Plan Start: 02/13/22 10:51 Freq: Status: Active Protocol: Document 02/16/22 13:04 [facility] (Rec: 02/16/22 13:13 [facility] [id number]) OT Summary Assessment and Plan Potential Rehabilitation Potential Good Analytic Complexity at Evaluation Moderate Summary OT Impairments Pain,Balance,Functional Cognition,Functional Mobility, Self-Feeding,Grooming,Dressing ,Toileting,Bathing,Toilet Transfers,Shower Transfers, Activity Tolerance Progress Towards Goals Slow Progress due to Cognition Assessment Summary Pt much more alert but still needing assist for safety awareness and for his ADl and mobility needs. Pt would greatly benefit form skilled rehab however case management not able to find any accepting facilities at massimo time. Otherwise as pt prefers to go home and would benefit from 24 /7 assist and pt is a high fall risk and has decreased safety awareness. Goals Self-Feeding Goal Independent Grooming Goal Standby Assistance Dressing Goal Independent Toileting Goal Standby Assistance Bathing Goal Minimal Assistance Toilet Transfer Goal Independent Shower Transfer Goal Independent Frequency of Treatment Frequency Of Treatment Once a Day Treatment Plan OT Treatment Plan ADL Training,Functional Cognition Training,Functional Mobility,Patient/Family Education,Discharge Planning Discharge Recommendations OT Discharge Recommendations Home with 24/7 Assist Available,Home Health,SNF Rehab Transportation Needs at Discharge Private Vehicle
--- NOTE | 2022-02-16 15:12 | PC.NURSE ---
Discharge: Pt d/c to home via auto with dtr. Dtr voiced many concerns about pt's discharge. She wants him to go to rehab. Pt is adament in his refusal to do same. Dtr did speak with care management. She also spoke with her father and she was unable to get him to change his mind. Care management has gotten outside services for pt involved. Pt has able to apply own cream to the head for the lesions. He was also able to put in his own eye ointment with using a mirror. Discharge instructions were given to both the pt and his dtr. RX given. Questions answered. Pt d/c to home via auto with dtr.
--- NOTE | 2022-02-16 15:19 | P.DS_ITS ---
History of Present Illness History of Present Illness Date Patient Seen: 02/16/22 Chief complaint: GLF Narrative: 86-year-old gentleman with hypertension, obstructive sleep apnea, hyperlipi demia, prior stroke, gout, congestive heart failure who was admitted with acute herpes zoster keratitis/ophthalmicus and inability to perform self-care at home. Patient was also notably encephalopathic on admission. He was admitted for further treatment and evaluation. He was placed on IV acyclovir as well as erythromycin ointment and acyclovir ointment. He had significant zoster with oozing and vesicles. His eyes were both swollen. Discharge Providers Provider Date of admission: 02/10/22 04:30 Discharge Date: 02/16/22 Primary care physician: Larry Roman MD Consults: 02/11/22 13:29 Consult to Occupational Therapy Evaluate & Treat Comment: Physician Instructions: Evaluate and treat Consult to Physical Therapy Evaluate & Treat Comment: Physician Instructions: Evaluate and Treat 02/16/22 11:45 Consult to Home Health Routine Comment: Reason For Exam: Home Health RN, P.T, O.T, TRAIN ATTENDANT, bath aide Discharge provider: Karen Ortega MD Summary Hospital Course Discharge Diagnosis: 1. 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 Acute metabolic encephalopathy, resolved 3. 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 ZAHRA, resolved 5. Chronic diastolic congestive heart failure 6. Hypertension, chronic, stable 7. Chronic gout, stable 8. Hyperlipidemia, untreated 9. Depression-Seroquel was held during his hospitalization due to sedation. He remains on duloxetine. 10. BPH, stable, chronic 11. Prior stroke, stable. 12. Obstructive sleep apnea, noncompliant with CPAP Hospital Course: Patient was admitted with herpes zoster keratitis/ophthalmicus. He was also quite encephalopathic on admission. LP was ordered to evaluate for encephalitis but ultimately patient refused. MRI of the brain was done with contrast which did not reveal any evidence of temporal enhancement concerning for encephalitis. He had had some lower eyelid edema to the right eye on admission which gradually improved. There was no zoster involvement. His left eye a continued to be swollen but he gradually achieved crusting of his rash and was ultimately taken out of isolation precautions. His daughter wanted him to go to a skilled nurse facility. Arrangements were being made, initially hampered by the fact that there were no private rooms which he needed for isolation precautions. However by the time had isolation precautions were lifted, patient was quite adamant about returning home. He was evaluated by physical therapy who felt that he could go home with home health as long as he had 24 hour supervision. Patient lives close by to his daughter and they both live in [place]. He was receptive to setting up home health at discharge for nursing, and therapies. Ultimately, his daughter was not happy with the decision but understood that the patient is still decisional and able to make his own decisions. At the time of discharge, patient's mentation appeared to be back to baseline. He was mobilizing about the hospital room. He was able to take medications without difficulty. He did require some assistance putting the ointment in his eye. At the time of discharge, patient requires no isolation precautions. He is encouraged to follow-up with ophthalmology within the next week. He was seen at the [facility] emergency Department by Ophthalmology on February 08, 2022. 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 Patient would likely benefit from moving to an assisted living environment where he has more direct supervision. Resources were provided by the care management team at discharge. Patient is discharged in stable precautions. Status at Discharge Cognitive/behavioral status at discharge: at baseline, oriented Time Spent with Patient Time spent: Greater than 30 minutes Exam Vital Signs (past 8 hours): - 02/16/22 08:00 02/16/22 07:45 Temperature 97.4 F L Pulse Rate 90 Respiratory Rate 19 Blood Pressure 102/46 L Pulse Oximetry 98 Oxygen Delivery Method Room Air Oxygen Flow Rate 0 Oxygen Delivery Method Room Air Oxygen Flow Rate 0 Narrative Exam Narrative: GEN:? very pleasant elderly male,Alert and oriented x 2-3, NAD HEENT:NC, left eye remains? significantly edematous, conjunctiva? with significant edema, zoster rash with? crusted lesions noted to the left upper eyelid, forehead, scalp, temporal region, left nasal bridge and tip of the nose, patient cannot spontaneously open his eye,?excoriated areas are not bleeding CHEST: Respiratory excursions symmetric, diminished but CTAB CV: RRR, no M/R/G ABD: Soft, obese, NT/ND, BT present in all 4 quadrants, no organomegaly or masses appreciated EXTR: warm, well perfused, no C/C, [place] nonpitting edema noted to the bilateral lower extremities SKIN: warm and dry, no rash NEURO:?? alert and oriented x2-3, otherwise nonfocal Objective Labs Result Diagrams: 02/14/22 06:32 02/15/22 06:15 [facility] Medical History (Updated 02/10/22 @ 18:25 by Kary Christian DO) Acquired hypothyroidism (09/16/16) Actinic keratosis Basal cell carcinoma 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) Colon polyps COVID-19 virus infection (01/24/22) CVA (cerebral vascular accident) Depression (06/29/15) Erectile dysfunction (02/12/16) Essential hypertension (06/29/15) Gout Hemorrhoids Hyperlipemia Insomnia Metabolic encephalopathy Obstructive sleep apnea Osteoarthritis Pneumonia due to COVID-19 virus Primary insomnia (09/16/16) 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 Use a walker for mobility. You will need to follow-up with the eye doctor for recheck within 1 week Discharge orders & Medications Prescriptions: New acetaminophen 325 mg Tablet 650 mg PO Q6H PRN (Reason: pain) Qty: 30 0RF valacyclovir 500 mg Tablet 1,000 mg PO TID Qty: 15 0RF erythromycin 5 mg/gram (0.5 %) Ointment 1 applic EYE-LEFT QID Qty: 3.5 0RF acyclovir 5 % Ointment 1 applic topical QID Qty: 30 0RF acyclovir 5 % ointment 1 applic topical QID 7 Days Qty: 30 0RF valacyclovir 500 mg tablet 1,000 mg PO TID Qty: 15 0RF erythromycin 5 mg/gram (0.5 %) ointment 1 applic EYE-LEFT QID Qty: 50 0RF Continued pantoprazole 40 mg tablet,delayed release (DR/EC) 40 mg PO BID Qty: 180 3RF Label Comments: 40 mg PO BID tamsulosin 0.4 mg capsule 0.4 mg PO BEDTIME Qty: 90 3RF atenolol 50 mg tablet 50 mg PO BID Qty: 180 1RF allopurinol 100 mg tablet 100 mg PO DAILY Qty: 90 1RF duloxetine 20 mg capsule,delayed release(DR/EC) 20 mg PO DAILY Qty: 90 4RF potassium chloride 20 mEq tablet extended release 20 meq PO DAILY Qty: 90 4RF cholecalciferol (vitamin D3) [Vitamin D3] 50 mcg (2,000 unit) Capsule 2,000 unit PO DAILY amlodipine 10 mg tablet 10 mg PO DAILY Rx Instructions: TAKE 1 TABLET BY MOUTH EVERY DAY melatonin 5 mg Tablet 5 mg PO BEDTIME Saccharomyces boulardii [Florastor] 250 mg Capsule 250 mg PO DAILY Discontinued quetiapine 100 mg tablet 100 mg PO BID Qty: 60 5RF prednisone 20 mg tablet 80 mg PO DAILY 30 Days Qty: 120 0RF Medication counseling provided by Pharmacist: No Follow up/Referrals: Larry Roman MD [Primary Care Provider] - Diet/Activity/Treatments Diet: Regular Activity: As tolerated Oxygen: N/A Skin/Wound/Dressing Care Skin care: Don't scratch scabbed areas on your head. Other wound treatment: Gently cleanse area of shingles on head with water and soap. Dont scrub. Pat dry. Do daily and as needed. Apply cream as directed by your doctor. Wipe any drainage off of eye if present. Start at inside corner of eye and wipe to the outside. Use a new wipe or tissue each time. Apply ointment as directed by your doctor. Visit Report/Discharge Packet Instructions: How to Choose and Use a Walker, How to Put in Eye Drops, DI for Shingles, How to Prevent Falls Discharge Data Primary Care Provider: Larry Roman Quality VTE Deep Vein Thrombosis/Pulmonary Embolism Present on Admission: No
--- NOTE | 2022-02-18 11:51 | CM.DPC ---
Return call from APS regarding previous DCP referral to APS for self neglect from pt's discharge over the weekend on 02/16/22 to home with HH and caregivers and family assist. SW updated APS on attempts at SNF and barriers to acceptance at SNF and pt's progress while admitted to [facility] with walker. APS will follow up with pt's assigned CM that coordinates his caregivers towards increasing CG assist at home and follow up to determine if pt qualifies for APS under self neglect. LINDA Garnett
== END 2022-02-16 15:10 | disposition home or self-care (01) | DRG 124 ==
LOC: ED 22:52 → AC 02-10 04:31
PROVIDERS: Family Medicine; Internal Medicine; Admitting Provider Family Medicine; Emergency Provider Emergency Medicine; Family Provider Student in an Organized Health Care Education/Training Program; PCP Student in an Organized Health Care Education/Training Program; Referring Provider Emergency Medicine; Visit Provider Family Medicine
DX: B02.33 Zoster keratitis (principal); G93.41 Metabolic encephalopathy; L03.211 Cellulitis of face; N17.9 Acute kidney failure, unspecified; I50.32 Chronic diastolic (congestive) heart failure; M1A.9XX0 Chronic gout, unspecified, without tophus (tophi); F32.A Depression, unspecified; N40.0 Benign prostatic hyperplasia without lower urinary tract symptoms; I11.0 Hypertensive heart disease with heart failure; F17.210 Nicotine dependence, cigarettes, uncomplicated; Z20.822 Contact with and (suspected) exposure to COVID-19
CPT/HCPCS: 36415; 36600; 70450; 70553; 71045; 71275; 80048; 80053; 81001; 82550; 82805; 83605; 83690; 83735; 83880; 84145; 84484; 85007; 85025; 85027; 85379; 85610; 85730; 87040; 87070; 87077; 87147; 87186; 87205; 87635; 93005; 94760; 94762; 96365; 96367; 96368; 96375; 97116; 97129; 97162; 97165; 97530; 97535; 99284; 99285; 99291; C9803; A9579; J0690; J0696; J1650; J1940; Q9967

== ENCOUNTER 2022-02-20 14:07 | Emergency (ER) | payer OTHER, SELFPAY ==
[2022-02-06 11:19] VITALS: PULSE 60; RESP 23; O2SAT 99
[2022-02-15 18:56] VITALS: BMI 34.5
[2022-02-20 14:17] VITALS: BP 160/72; PULSE 74; RESP 20; TEMP 36.7; O2SAT 91; BMI 34.4
--- NOTE | 2022-02-20 15:06 | ED.EYEPROB ---
HPI - Eye Problem General Chief complaint: Eye Problems Stated complaint: SENT BY DR STANTON RIGHT EYE HARD TO SEE Time Seen by Provider: 02/20/22 14:58 Mode of arrival: Wheelchair History of Present Illness HPI Narrative: Patient is an 86-year-old male history of hypertension, sleep apnea, hyperlipidemia, prior stroke, gout, CHF with recent shingles infection with zoster keratitis presenting today from Ophthalmology concern for need for further treatment and evaluation. Patient was seen last week he was initially sent [facility] for ophthalmology evaluation he was discharged from the emergency department he was readmitted later that day here at our hospital for shingles. He stayed in was released on 02/16/2022. He apparently lives alone his daughter lives around the corner she checks on him regularly. However there is concern that he is not eating not drinking not taking his medicine. He seems to be picking at the scabs over strangled lesions. He is in pain. Ophthalmology thought he needed more medication is he certainly needs more pain medication. Was attempted at discharge to get him into a sniff however he was denied for various reasons including current shingles infection. Apparently patient was recently approved by insurance to go to sniff but there is not a significant level. Home health care has been set up for him currently. Patient really has no complaints he is not sure why he is here he would like to go home Related Data Home Medications Medication Instructions Recorded Confirmed cholecalciferol (vitamin D3) 50 2,000 unit PO DAILY 02/13/21 02/10/22 mcg (2,000 unit) capsule (Vitamin D3) amlodipine 10 mg tablet 10 mg PO DAILY 11/02/21 02/10/22 melatonin 5 mg tablet 5 mg PO BEDTIME 11/02/21 02/10/22 Saccharomyces boulardii 250 mg 250 mg PO DAILY 02/10/22 02/10/22 capsule (Florastor) Previous Rx's Medication Instructions Recorded pantoprazole 40 mg tablet,delayed 40 mg PO BID #180 tabs 08/28/21 release allopurinol 100 mg tablet 100 mg PO DAILY #90 tabs 10/23/21 atenolol 50 mg tablet 50 mg PO BID #180 tabs 10/23/21 tamsulosin 0.4 mg capsule 0.4 mg PO BEDTIME #90 caps 10/23/21 duloxetine 20 mg capsule,delayed 20 mg PO DAILY #90 caps 02/04/22 release potassium chloride 20 mEq 20 meq PO DAILY #90 tabs 02/04/22 tablet,extended release acetaminophen 325 mg tablet 650 mg PO Q6H PRN pain #30 tabs 02/16/22 acyclovir 5 % topical ointment 1 applic topical QID #30 grams 02/16/22 acyclovir 5 % topical ointment 1 applic topical QID 7 days #30 02/16/22 grams erythromycin 5 mg/gram (0.5 %) eye 1 applic EYE-LEFT QID #3.5 grams 02/16/22 ointment erythromycin 5 mg/gram (0.5 %) eye 1 applic EYE-LEFT QID #50 grams 02/16/22 ointment valacyclovir 500 mg tablet 1,000 mg PO TID #15 tabs 02/16/22 valacyclovir 500 mg tablet 1,000 mg PO TID #15 tabs 02/16/22 hydrocodone 5 mg-acetaminophen 325 1 tab PO Q6H PRN pain #15 tabs 02/20/22 mg tablet Allergies Allergy/AdvReac Type Severity Reaction Status Date / Time No Known Drug Allergies Allergy Verified 02/07/22 10:21 Review of Systems Review of Systems Narrative: GENERAL: Denies chills,fever HEENT: Denies throat pain RESPIRATORY: Denies dyspnea, cough, wheezing CARDIOVASCULAR: Denies chest pain, palpitations GASTROINTESTINAL: Denies nausea, vomiting MUSCULOSKELETAL: Denies extremity pain, injury SKIN: See HPI NEUROLOGIC: Denies weakness, dizziness, headache, numbness 8 point review of systems is negative except for those stated above and HPI 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 Surgical History History of ectropion repair (10/2017) Hx of surgical procedure Family History Family/Other Unknown family medical history Social History household members: none Smoking Status: Current some day smoker alcohol intake: current Smoking Status: Current some day smoker tobacco type: cigarettes alcohol intake frequency: 0-2 drinks per day Alcohol type: hard liquor Substance Use Type: does not use Exam Initial Vital Signs Initial Vital Signs: Vital Signs Temperature 98.1 F 02/20/22 14:17 Pulse Rate 74 02/20/22 14:17 Respiratory Rate 20 02/20/22 14:17 Blood Pressure 160/72 H 02/20/22 14:17 Pulse Oximetry 91 02/20/22 14:17 Oxygen Delivery Method 02/20/22 14:17 GENERAL: Alert slightly confused 86-year-old male HEENT: Head atraumatic, left eye shut he has some ointment over it not significantly swollen, face symmetric, moist mucous membranes CARDIOVASCULAR: Regular rate and rhythm without murmurs, rubs or gallops. RESPIRATORY: Breath sounds equal bilaterally, no wheezes rales or rhonchi. EXTREMITIES: Normal range of motion, no clubbing or edema. Neurovascularly intact NEUROLOGICAL: Moving all extremities no gross deficits SKIN: Scabbed over lesions over his scalp no significant erythema Course Orders Ordered: ED Orders 02/20/22 16:52 Consult to DIRECTOR RADIO - Assistant Produce Manager Stat 02/20/22 17:33 CBC Auto Diff [Complete Blood Count AUTO DIFF] Stat CMP [Comprehensive Metabolic Panel] Stat Vital Signs Vital signs: Vital Signs - 8 hr 02/20/22 14:17 Temperature 98.1 F Pulse Rate 74 Respiratory Rate 20 Blood Pressure 160/72 H Pulse Oximetry 91 Oxygen Delivery Method Room Air MDM - Eye Problem Lab Data Result diagrams: 02/20/22 17:33 02/20/22 17:33 Labs: Lab Results 02/20/22 02/20/22 Range/Units 17:33 17:33 WBC 8.1 (4.5-11.0) X10^3/uL RBC 4.00 L (4.5-5.9) X10^6/uL Hgb 11.6 L (13.5-17.5) g/dL Hct 35.2 L (41-53) % MCV 88.0 (80-100) fL MCH 28.9 (26-34) PG MCHC 32.9 (30-36) % RDW 19.7 H (11.6-14.8) % Plt Count 276 (150-400) X10^3/uL Neut % (Auto) 74.5 (50-75) % Lymph % (Auto) 16.0 L (25-40) % [place] % (Auto) 6.8 (3-14) % Eos % (Auto) 1.4 L (2-4) % Baso % (Auto) 1.3 (0-2) % Neut # (Auto) 6000 (8604-7029) /uL Lymph # (Auto) 1300 (6655-5977) /uL [place] # (Auto) 500 (0-900) /uL Eos # (Auto) 100 (0-450) /uL Baso # (Auto) 100 (0-100) /uL Sodium 140 (137-145) mmol/L Potassium 4.7 (3.4-5.1) mmol/L Chloride 101 (98-107) mmol/L Carbon Dioxide 32 (22-32) mmol/L BUN 17 (9-20) mg/dL Creatinine 1.08 (0.66-1.25) mg/dL Estimated GFR > 60 (>60) mL/min BUN/Creatinine Ratio 15.7 (6-22) Glucose 94 (80-110) mg/dL Calcium 9.1 (8.4-10.2) mg/dL Total Bilirubin 0.4 (0.2-1.3) mg/dL AST 34 (17-59) IU/L ALT 16 (<50) IU/L Alkaline Phosphatase 73 (38-126) U/L Total Protein 7.8 (6.3-8.2) g/dL Albumin 3.9 (3.5-5.0) g/dL Globulin 3.9 (1.7-4.1) g/dL Albumin/Globulin Ratio 1.0 (1.0-2.8) MDM Narrative Medical decision making narrative: I Actually did talk with ophthalmology. She is unable to see both [facility] records and our records. She was unaware of everything that has been done. Her biggest concern was care for himself. Social Work has been in to evaluate patient she has reviewed records. Discussion with family. Unfortunately at this time no placement available. Every place had previously been contacted just a few days ago and declined him for various reasons. He is not meet admission criteria. No need for any further they will cycle of ears long as he took all of it previously. Ophthalmology called in glaucoma drops. At this time will send patient home with pain medication daughter states that she hold onto that is responsible and gives it to him as needed he is not left alone with the narcotic medications. APS reports have been filed for self neglect Discharge Plan Departure Patient Disposition: Home Clinical Impression: Shingles Instructions: Shingles Activity Restrictions/Additional Instructions: *You have been diagnosed with shingles *What to do: Please continue to try to get patient into long-term care facility. Social Work has given you information in regards to this. Sorry that can be more help *Continue to take medications as directed [place] 1 tablet every 6 hours if needed for severe pain-->SENT TO [facility] No need for any more antiviral medications *Follow up with your primary care provider in 2-3 days or call [phone] *Return to ER if you should have any new, worsening or concerning symptoms CONTROLLED SUBSTANCE DISCHARGE (Narcotoic/benzodiazepine/Flexeril/Phenergan) 1. You have been prescribed narcotic medications, it does have acetaminophen/Tylenol/paracetamol in it, DO NOT TAKE MORE THAN 4,00mg in 24 hours of Tylenol. TRAMADOL DOES NOT CONTAIN TYLENOL 2. Please understand that we cannot provide further refills of narcotics, benzodiazepines or controlled substances through the ED and her pain management will need to be through your provider. 3. While on these medications you cannot drive or operate heavy machinery. 4. You cannot sign legal documents or perform any duties such as this. 5. As long as you're taking opiate pain medications he should also be taking a stool softener such as Colace, Dulcolax, MiraLAX or prune juice, to help avoid constipation. Prescriptions: New hydrocodone-acetaminophen 5-325 mg tablet 1 tab PO Q6H PRN (Reason: pain) Qty: 15 0RF No Action pantoprazole 40 mg tablet,delayed release (DR/EC) 40 mg PO BID Qty: 180 3RF Label Comments: 40 mg PO BID tamsulosin 0.4 mg capsule 0.4 mg PO BEDTIME Qty: 90 3RF atenolol 50 mg tablet 50 mg PO BID Qty: 180 1RF allopurinol 100 mg tablet 100 mg PO DAILY Qty: 90 1RF duloxetine 20 mg capsule,delayed release(DR/EC) 20 mg PO DAILY Qty: 90 4RF potassium chloride 20 mEq tablet extended release 20 meq PO DAILY Qty: 90 4RF cholecalciferol (vitamin D3) [Vitamin D3] 50 mcg (2,000 unit) Capsule 2,000 unit PO DAILY amlodipine 10 mg tablet 10 mg PO DAILY Rx Instructions: TAKE 1 TABLET BY MOUTH EVERY DAY melatonin 5 mg Tablet 5 mg PO BEDTIME Saccharomyces boulardii [Florastor] 250 mg Capsule 250 mg PO DAILY acetaminophen 325 mg Tablet 650 mg PO Q6H PRN (Reason: pain) Qty: 30 0RF valacyclovir 500 mg Tablet 1,000 mg PO TID Qty: 15 0RF erythromycin 5 mg/gram (0.5 %) Ointment 1 applic EYE-LEFT QID Qty: 3.5 0RF acyclovir 5 % Ointment 1 applic topical QID Qty: 30 0RF acyclovir 5 % ointment 1 applic topical QID 7 Days Qty: 30 0RF valacyclovir 500 mg tablet 1,000 mg PO TID Qty: 15 0RF erythromycin 5 mg/gram (0.5 %) ointment 1 applic EYE-LEFT QID Qty: 50 0RF Referrals: Larry Roman MD [Primary Care Provider] - Visit Report Forms: Patient Portal/API
--- NOTE | 2022-02-20 16:01 | PC.NURSE ---
pt is very sleepy. has difficulty answering questions. Pt states his eye has been hurting for 3 or 4 days but unsure what is wrong with it. pt negative for arm drift. does have facial droop on left side of face. able to answer age but not correct month. left eye is swollen shut.
[2022-02-20 17:42] LABS: Add Manual Diff / Slide Review NO; Basophils Absolute Auto 100 /uL (0-100); Basophils Percent Auto 1.3 % (0-2); Eosinophils Absolute Auto 100 /uL (0-450); Eosinophils Percent Auto 1.4 % (2-4); Hematocrit 35.2 % (41-53); Hemoglobin 11.6 g/dL (13.5-17.5); Lymphocytes Absolute Auto 1300 /uL (1100-4500); Mean Corpuscular HGB Conc 32.9 % (30-36); Mean Corpuscular Hemoglobin 28.9 PG (26-34); Monocytes Absolute Auto 500 /uL (0-900); Monocytes Percent Auto 6.8 % (3-14); Neutrophils Absolute Auto 6000 /uL (1500-7000); Neutrophils Percent Auto 74.5 % (50-75); Platelet Count 276 X10^3/uL (150-400); Red Cell Distribution Width 19.7 % (11.6-14.8); White Blood Cell Count 8.1 X10^3/uL (4.5-11.0)
[2022-02-20 18:03] LABS: Alanine Aminotransferase 16 IU/L (<50); Albumin 3.9 g/dL (3.5-5.0); Alkaline Phosphatase 73 U/L (38-126); Aspartate Aminotransferase 34 IU/L (17-59); BUN Creatinine Ratio 15.7 (6-22); Bilirubin Total 0.4 mg/dL (0.2-1.3); Blood Urea Nitrogen 17 mg/dL (9-20); Calcium 9.1 mg/dL (8.4-10.2); Carbon Dioxide 32 mmol/L (22-32); Chloride 101 mmol/L (98-107); Estimated Glomerular Filt Rate > 60 mL/min (>60); Globulin 3.9 g/dL (1.7-4.1); Glucose 94 mg/dL (80-110); HEMOLYSIS < 15 (0-50); Potassium 4.7 mmol/L (3.4-5.1); Sodium 140 mmol/L (137-145); Total Protein 7.8 g/dL (6.3-8.2)
[2022-02-20 19:02] VITALS: BP 146/67; PULSE 88; O2SAT 95
--- NOTE | 2022-02-20 19:08 | CM.SWNOTE ---
ED manager social consult placed by attending physician to assist with discharge of patient to home from ED. There is not a medical reason to admit the patient, he was recently discharged, concerns of eye doctor who directed patient to ED were addressed via tele call with attending. lime kiln worker helper reviewed medical chart including disharge planning from prior admission. Patient discharged home with ([facility]) after unsuccessful search for SNF to admit patient to at time of discharge. Patient was noted to be decisional and not wanting to discharge to SNF and chose to discharge home when he was medically stable. APS was noted to have been contacted. ED manager social met with family (daughter and DESMOND) in patient room. Patient is again requesting to discharge home and is declining any SNF discussion. Daughter is concerned for patient's ability to manage medications at home and reported patient was not adequately feeding himself at home either (refusing food). Daughter reported HH nurse was at home this week and patient wasn't even aware she was there the whole time. Daughter reported he slept through the nurse applying ointment in/on eyes. Daughter is not happy that patient is able to make choices for self that are most likely not the best choices. Daughter was informed that extensive SNF search was done. Daughter didn't feel appropriate efforts had been made because [facility] told me it was approved. Why was there no place if it was approved? lime kiln worker helper explained that insurance approval does not guarantee an accepting facility. lime kiln worker helper provided education about facilities having their own admission criteria and [facility] or [facility] cannot force facilities to accept patients that facilities decline for whatever the declining reason(s). Daughter stated understanding but appalled that SNF can decline patient. Daughter asked if facilities had been told about patient's prior behaviors at other facilities. lime kiln worker helper explained that clinical/medical information from current hospitalization is typically shared with SNF facilities for screening purposes and that this manager social could not know all the specifics of information shared. lime kiln worker helper informed if facilities asked, any manager social/case management staff would not lie or omit information being asked about. Daughter was provided brochure for [employer] [facility] so she could do a SNF search of her own. lime kiln worker helper reminded her that patient would still need to agree to SNF placement. Attending physician provided information to daughter and DESMOND about conversation with eye doctor and discussed their concerns about medications. Patient discharging home to resume with . lime kiln worker helper talked with [facility] at [facility]. He reported the nurse assigned to this patient would be able to see patient tomorrow instead of Friday. Patient's daughter was informed of this as well. Basim WIGGINS
== END 2022-02-20 19:03 | disposition home or self-care (01) ==
PROVIDERS: Emergency Provider Emergency Medicine; Family Provider Student in an Organized Health Care Education/Training Program; PCP Student in an Organized Health Care Education/Training Program
DX: B02.39 Other herpes zoster eye disease (principal)
CPT/HCPCS: 36415; 80053; 85025; 99283

== ENCOUNTER 2022-04-24 12:11 | Inpatient (IN) | payer OTHER, SELFPAY ==
[2022-02-06 11:19] VITALS: PULSE 60; RESP 23; O2SAT 99
[2022-02-15 18:56] VITALS: BMI 34.5
--- NOTE | 2022-04-24 12:16 | ED_ITS ---
HPI - Fall General Chief Complaint: Fall Stated Complaint: GLF Time Seen by Provider: 04/24/22 12:16 History of Present Illness HPI Narrative: Patient is an 86-year-old male history of hypertension, sleep apnea, prior stroke, CHF, infection, possible dementia presenting today after ground level fall. He says he tripped and fell landed on concrete in his home. He denies dizziness lightheadedness chest pain palpitations. He laid there for a few hours before his daughter found him. He is complaining of right hip pain. States he did hit his head he did not lose consciousness. He is not on anticoagulation medication. Was previously noted that he likely would benefit from sniff h owever he was refusing placement previously. Related Data Home Medications Medication Instructions Recorded Confirmed cholecalciferol (vitamin D3) 50 2,000 unit PO DAILY 02/13/21 02/10/22 mcg (2,000 unit) capsule (Vitamin D3) melatonin 5 mg tablet 5 mg PO BEDTIME 11/02/21 02/10/22 Saccharomyces boulardii 250 mg 250 mg PO DAILY 02/10/22 02/10/22 capsule (Florastor) Previous Rx's Medication Instructions Recorded pantoprazole 40 mg tablet,delayed 40 mg PO BID #180 tabs 08/28/21 release allopurinol 100 mg tablet 100 mg PO DAILY #90 tabs 10/23/21 atenolol 50 mg tablet 50 mg PO BID #180 tabs 10/23/21 tamsulosin 0.4 mg capsule 0.4 mg PO BEDTIME #90 caps 10/23/21 duloxetine 20 mg capsule,delayed 20 mg PO DAILY #90 caps 02/04/22 release potassium chloride 20 mEq 20 meq PO DAILY #90 tabs 02/04/22 tablet,extended release acetaminophen 325 mg tablet 650 mg PO Q6H PRN pain #30 tabs 02/16/22 amlodipine 10 mg tablet 10 mg PO DAILY #90 tabs 02/28/22 gabapentin 300 mg capsule 300 mg PO TID #90 caps 04/23/22 Allergies Allergy/AdvReac Type Severity Reaction Status Date / Time No Known Drug Allergies Allergy Verified 04/24/22 12:21 Review of Systems Review of Systems Narrative: See HPI 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 Surgical History History of ectropion repair (10/2017) Hx of surgical procedure Family History Family/Other Unknown family medical history Social History household members: none Smoking Status: Current some day smoker alcohol intake: current Smoking Status: Current some day smoker tobacco type: cigarettes alcohol intake frequency: 0-2 drinks per day Alcohol type: hard liquor Substance Use Type: does not use Exam Initial Vital Signs Initial Vital Signs: Vital Signs Temperature 98.1 F 04/24/22 12:17 Pulse Rate 75 04/24/22 12:17 Respiratory Rate 16 04/24/22 12:17 Blood Pressure 162/72 H 04/24/22 12:17 Pulse Oximetry 94 04/24/22 12:17 Oxygen Delivery Method 04/24/22 12:17 GENERAL: Alert 86-year-old male no acute distress HEENT: Head atraumatic,EOMI, pupils reactive, face symmetric, moist mucous m embranes NECK: Vertebral tenderness moving easily CARDIOVASCULAR: Regular rate and rhythm without murmurs, rubs or gallops. RESPIRATORY: Breath sounds equal bilaterally, no wheezes rales or rhonchi. ABDOMEN: Soft, nontender. Normoactive bowel sounds all 4 quadrants. No guarding or rebound. EXTREMITIES: Normal range of motion, no clubbing or edema. Neurovascularly intact. Right hip pain distal pedal pulse intact. Legs are of equal length NEUROLOGICAL: Alert and oriented x3. SKIN: Warm, dry, no laceration, no petechiae, no rashes or lesions. Course Orders Ordered: ED Orders 04/25/22 05:00 BMP [Basic Metabolic Panel] DAILY CBC Auto Diff [Complete Blood Count AUTO DIFF] DAILY 04/26/22 05:00 BMP [Basic Metabolic Panel] DAILY CBC Auto Diff [Complete Blood Count AUTO DIFF] DAILY 04/27/22 05:00 BMP [Basic Metabolic Panel] DAILY CBC Auto Diff [Complete Blood Count AUTO DIFF] DAILY Acetaminophen (Acetaminophen 325 Mg Tablet) 650 mg PO Q6HR PRN PRN Reason: Fever/Mild Pain (1-3) Amlodipine Besylate (Amlodipine 5 Mg Tablet) 10 mg PO DAILY [facility] Atenolol (Atenolol 50 Mg Tablet) 50 mg PO BID [facility] Last Admin: 04/24/22 20:35 Dose: 50 mg Documented By: GIOVANNY Duloxetine HCl (Duloxetine 20 Mg Capsule) 20 mg PO DAILY [facility] Gabapentin (Gabapentin 300 Mg Capsule) 300 mg PO TID [facility] Last Admin: 04/24/22 20:35 Dose: 300 mg Documented By: GIOVANNY Hydromorphone HCl (Hydromorphone 0.5 Mg Inj) 0.5 mg IV Q4H PRN PRN Reason: Breakthrough pain only (8-10) Piperacillin Sod/Tazobactam (Sod 4.5 gm/ Sodium Chloride) 100 mls @ 25 mls/hr IV Q8H [facility] Last Admin: 04/25/22 04:36 Dose: 25 mls/hr Documented By: Infusion: 04/25/22 00:25 Dose: 25 mls/hr Documented By: Admin: 04/24/22 20:25 Dose: 25 mls/hr Documented By: GIOVANNY Sodium Chloride (Normal Saline 0.9%) 1,000 mls @ 42 mls/hr IV CONT [facility] Last Admin: 04/24/22 20:35 Dose: 42 mls/hr Documented By: GIOVANNY Non-Formulary Medication (Melatonin) 5 mg PO BEDTIME [facility] Last Admin: 04/24/22 20:37 Dose: Not Given Documented By: GIOVANNY Oxycodone HCl (Oxycodone Ir 10 Mg Tablet) 10 mg PO Q4HR PRN PRN Reason: Pain, Severe (7-10) Last Admin: 04/24/22 20:35 Dose: 10 mg Documented By: GIOVANNY Pantoprazole Sodium (Pantoprazole Dr 40 Mg Tablet) 40 mg PO BID [facility] Last Admin: 04/24/22 20:35 Dose: 40 mg Documented By: GIOVANNY Potassium Chloride (Potassium Chloride 20 Meq Tab) 20 meq PO DAILY [facility] Tamsulosin HCl (Tamsulosin 0.4 Mg Capsule) 0.4 mg PO BEDTIME [facility] Last Admin: 04/24/22 20:35 Dose: 0.4 mg Documented By: GIOVANNY Discontinued Medications Enoxaparin Sodium (Enoxaparin 40 Mg/0.4 Ml Syringe) 40 mg SUBCUT DAILY [facility] Stop: 04/25/22 09:01 Hydromorphone HCl (Hydromorphone 0.5 Mg Inj) 0.5 mg IV NOW ONE Stop: 04/24/22 16:04 Last Admin: 04/24/22 16:13 Dose: 0.5 mg Documented By: AMY Sodium Chloride (Normal Saline 0.9%) 1,000 mls @ 150 mls/hr IV CONT [facility] Last Infusion: 04/24/22 16:47 Dose: 0 mls/hr Documented By: Admin: 04/24/22 13:32 Dose: 150 mls/hr Documented By: AMY Lactated Ringer's (Lactated Ringers) 1,000 mls @ 42 mls/hr IV CONT [facility] Last Admin: 04/24/22 20:49 Dose: Not Given Documented By: GIOVANNY Morphine Sulfate (Morphine 2 Mg/Ml Inj) 2 mg IV NOW ONE Stop: 04/24/22 12:55 Last Admin: 04/24/22 13:32 Dose: 2 mg Documented By: AMY Morphine Sulfate (Morphine 2 Mg/Ml Inj) 2 mg IV NOW ONE Stop: 04/24/22 15:38 Last Admin: 04/24/22 15:55 Dose: 2 mg Documented By: AMY Vital Signs Vital signs: Vital Signs - 8 hr 04/24/22 12:17 Temperature 98.1 F Pulse Rate 75 Respiratory Rate 16 Blood Pressure 162/72 H Pulse Oximetry 94 Oxygen Delivery Method Room Air MDM - Fall Lab Data Result diagrams: 04/24/22 14:12 04/24/22 14:12 Labs: Lab Results 04/24/22 04/24/22 04/24/22 Range/Units 12:55 14:12 14:12 WBC 19.7 H (4.5-11.0) X10^3/uL RBC 3.94 L (4.5-5.9) X10^6/uL Hgb 11.7 L (13.5-17.5) g/dL Hct 35.7 L (41-53) % MCV 90.7 (80-100) fL MCH 29.7 (26-34) PG MCHC 32.8 (30-36) % RDW 19.7 H (11.6-14.8) % Plt Count 212 (150-400) X10^3/uL Neut % (Auto) 90.8 H (50-75) % Lymph % (Auto) 3.8 L (25-40) % King % (Auto) 5.0 (3-14) % Eos % (Auto) 0.1 L (2-4) % Baso % (Auto) 0.3 (0-2) % Neut # (Auto) 58578 H (9100-9022) /uL Lymph # (Auto) 700 L (9389-6942) /uL King # (Auto) 1000 H (0-900) /uL Eos # (Auto) 0 (0-450) /uL Baso # (Auto) 0 (0-100) /uL Sodium 140 (137-145) mmol/L Potassium 4.0 (3.4-5.1) mmol/L Chloride 107 (98-107) mmol/L Carbon Dioxide 27 (22-32) mmol/L BUN 14 (9-20) mg/dL Creatinine 0.89 (0.66-1.25) mg/dL Estimated GFR > 60 (>60) mL/min BUN/Creatinine Ratio 15.7 (6-22) Glucose 115 H (80-110) mg/dL Lactate (0.7-2.1) mmol/L Calcium 9.0 (8.4-10.2) mg/dL Total Bilirubin 0.4 (0.2-1.3) mg/dL AST 21 (17-59) IU/L ALT 11 (<50) IU/L Alkaline Phosphatase 73 (38-126) U/L Total Creatine Kinase 36 L (55-170) U/L CK-MB (CK-2) TNP CK-MB (CK-2) Rel Index TNP Troponin I < 0.012 (0.01-0.034) ng/mL Total Protein 7.4 (6.3-8.2) g/dL Albumin 3.9 (3.5-5.0) g/dL Globulin 3.5 (1.7-4.1) g/dL Albumin/Globulin Ratio 1.1 (1.0-2.8) Lipase 97 (23-300) U/L Procalcitonin (<0.5) ng/mL Urine Color Urine Appearance Urine pH (4.5-8.0) Ur Specific [place] (1.000-1.035) Urine Protein (Negative) Urine Glucose (UA) (Negative) g/dL Urine Ketones (NEGATIVE) Urine Occult Blood (Negative) Urine Nitrate (Negative) Urine Bilirubin (NEGATIVE) Urine Urobilinogen (0.2) E.U./dL Ur Leukocyte Esterase (NEGATIVE) Urine RBC (0-5/HPF) Urine WBC (0-5/HPF) Urine Bacteria (None) Hyaline Casts (None) Urine Mucus (Negative) Ur Culture Indicated? SARS-CoV-2 (PCR) Negative (Negative) 04/24/22 04/24/22 04/24/22 Range/Units 14:12 14:12 15:56 WBC (4.5-11.0) X10^3/uL RBC (4.5-5.9) X10^6/uL Hgb (13.5-17.5) g/dL Hct (41-53) % MCV (80-100) fL MCH (26-34) PG MCHC (30-36) % RDW (11.6-14.8) % Plt Count (150-400) X10^3/uL Neut % (Auto) (50-75) % Lymph % (Auto) (25-40) % King % (Auto) (3-14) % Eos % (Auto) (2-4) % Baso % (Auto) (0-2) % Neut # (Auto) (7495-6314) /uL Lymph # (Auto) (7682-9003) /uL King # (Auto) (0-900) /uL Eos # (Auto) (0-450) /uL Baso # (Auto) (0-100) /uL Sodium (137-145) mmol/L Potassium (3.4-5.1) mmol/L Chloride (98-107) mmol/L Carbon Dioxide (22-32) mmol/L BUN (9-20) mg/dL Creatinine (0.66-1.25) mg/dL Estimated GFR (>60) mL/min BUN/Creatinine Ratio (6-22) Glucose (80-110) mg/dL Lactate 1.6 (0.7-2.1) mmol/L Calcium (8.4-10.2) mg/dL Total Bilirubin (0.2-1.3) mg/dL AST (17-59) IU/L ALT (<50) IU/L Alkaline Phosphatase (38-126) U/L Total Creatine Kinase (55-170) U/L CK-MB (CK-2) CK-MB (CK-2) Rel Index Troponin I (0.01-0.034) ng/mL Total Protein (6.3-8.2) g/dL Albumin (3.5-5.0) g/dL Globulin (1.7-4.1) g/dL Albumin/Globulin Ratio (1.0-2.8) Lipase (23-300) U/L Procalcitonin 0.06 (<0.5) ng/mL Urine Color Yellow Urine Appearance Clear Urine pH 5.0 (4.5-8.0) Ur Specific [place] 1.015 (1.000-1.035) Urine Protein Trace H (Negative) Urine Glucose (UA) Negative (Negative) g/dL Urine Ketones Negative (NEGATIVE) Urine Occult Blood Trace-intact (Negative) Urine Nitrate Negative (Negative) Urine Bilirubin Negative (NEGATIVE) Urine Urobilinogen 0.2 (0.2) E.U./dL Ur Leukocyte Esterase Negative (NEGATIVE) Urine RBC None seen (0-5/HPF) Urine WBC None seen (0-5/HPF) Urine Bacteria None seen (None) Hyaline Casts 0-1/lpf (None) Urine Mucus 1+ H (Negative) Ur Culture Indicated? Cult not indicated SARS-CoV-2 (PCR) (Negative) Imaging Data Extremity x-ray #1: My Impression: Right intertrochanteric fracture Radiologist's Impression: [place] [id number] XRay Report Signed Patient: Klever George MR#: [id number] : 1935 Acct:[id number] Age/Sex: 86 / M Date of Service: 04/24/22 Loc: ED Accession Number: [id number] ?? Procedure: XR hip w pel if done RT 2V Ordering Provider: Kary Christian D.O. PROCEDURE:? XR HIP W PEL IF DONE RT 2V ? INDICATIONS:? pain from fall ? TECHNIQUE:? 2 views of the hip were acquired.? ? COMPARISON:? None. ? FINDINGS:? ? Bones:? Bilateral moderate joint space narrowing.? Normal bone mineralization.? Degenerative changes noted lower lumbar spine. ? Soft tissues:? No suspicious soft tissue calcifications or masses.? ? IMPRESSION:? ? Bilateral moderate hip joint space narrowing.? No marginal osteophyte. ? Lower lumbar spine degenerative changes ? ? ? Approved by: Dontrell Nowak M.D. on 04/24/2022 at 12:19? Chest x-ray: Radiologist's Impression: XRay Report Signed Patient: Klever George MR#: [id number] : 1935 Acct:[id number] Age/Sex: 86 / M Date of Service: 04/24/22 Loc: ED Accession Number: [id number] ?? Procedure: XR chest 1V Ordering Provider: Kary Christian D.O. PROCEDURE:? XR CHEST 1V ? INDICATIONS:? fall ? TECHNIQUE:? One view of the chest was acquired.? ? COMPARISON:? [facility], CT, CT CERVICAL SPINE WO CON, 04/24/2022, 12:44.? [facility], CR, XR CHEST 1V, 02/09/2022, 23:23.? [facility], CR, XR CHEST 1V, 02/08/2022, 12:06. ? FINDINGS:? ? Surgical changes and devices:? None.? ? Lungs and pleura:? Lungs appear clear.? No pleural effusions or pneumothorax.? ? Mediastinum:? Mediastinal contours appear unchanged.? Heart size is prominent.? ? Bones and chest wall:? No suspicious bony lesions.? Overlying soft tissues appear unremarkable.? ? IMPRESSION:? No acute cardiopulmonary abnormality. ? ? ? Dictated by: Broderick Chahal M.D. on 04/24/2022 at 13:08 CT scan - head: Radiologist's Impression: t: Klever George MR#: [id number] : 1935 Acct:[id number] Age/Sex: 86 / M Date of Service: 04/24/22 Loc: ED Accession Number: [id number] ?? Procedure: CT head/brain wo con Ordering Provider: Kary Christian D.O. PROCEDURE:? CT HEAD/BRAIN WO CON ? INDICATIONS:? fall ? TECHNIQUE:? Noncontrast 4.5 mm thick angled axial sections acquired from the foramen magnum to the vertex, with coronal and sagittal reformats.? For radiation dose reduction, the following was used:? automated exposure control, adjustment of mA and/or kV according to patient size.? ? COMPARISON:? [facility], CT, CT HEAD/BRAIN WO CON, 02/09/2022, 23:46. ? FINDINGS:? Image quality:? Good.? ? CSF spaces:? Basal cisterns are patent.? No extra-axial fluid collections.? The ventricles are symmetric in size and shape.? ? Brain:? No intracranial bleeds or masses.? Encephalomalacia in the right frontal lobe is unchanged.? There is cerebral volume loss for age, with resultant ventricular and sulcal prominence.? There are periventricular and deep white matter chronic small vessel ischemic changes.? There is intracranial internal carotid artery atherosclerosis.? ? Skull and face:? Calvarium and visualized facial bones appear intact, without suspicious lesions.? Suspected bandage at the left frontal calvarium.? ? Sinuses:? Visualized sinuses and mastoids are clear.? ? IMPRESSION:? No acute intracranial hemorrhage. ? Encephalomalacia at the right frontal cortex is unchanged. Chronic microvascular ischemic disease.? ? Dictated by: Broderick Chahal M.D. on 04/24/2022 at 13:05 ? ? Approved by: Broderick Chahal M.D. on 04/24/2022 at 13:08 ? Ct pelvis: Radiologist's Impression: [address] [address] [address] Scan Report Signed Patient: Klever George MR#: [id number] : 1935 Acct:[id number] Age/Sex: 86 / M Date of Service: 04/24/22 Loc: ED Accession Number: [id number] ?? Procedure: CT pelvis wo con Ordering Provider: Kary Christian D.O. PROCEDURE:? CT PEL WO CON ? INDICATIONS:? very tender right side fall ? TECHNIQUE:? Noncontrast 3 mm axial sections acquired through the bony pelvis, with coronal and sagittal reformatting.? ? COMPARISON:? [facility], CR, XR HIP W PEL IF DONE RT 2V, 04/24/2022, 12:29. ? FINDINGS:? Image quality:? Excellent.? ? Bones:? There is an acute comminuted fracture involving subcapital region of right femoral neck with fracture lines extending to base of greater and lesser trochanters.? Slight anterior and superior displacement of right proximal femur in relation to femoral head is noted.? No significant displacement of greater or lesser trochanteric fractured fragments.? Moderate bilateral hip joint osteoarthritic changes are seen.? No evidence of avascular necrosis of femoral head.? No other fracture or dislocation.? Degenerative disc disease in visualized lower lumbar spine is seen. ? Soft tissues:? Soft tissue swelling and edema surrounding right femoral neck fracture site is noted.? No significant joint effusion.? No intra-articular loose bodies or abnormal soft tissue calcifications.? There is no pelvic free fluid or free air.? No abnormal bowel wall thickening.? Extensive sigmoid diverticulosis is seen without evidence of acute diverticulitis.? Enlarged prostate gland is noted with mass effect on floor of urinary bladder.? No bladder wall abnormalities. ? ? IMPRESSION:? 1. Acute comminuted and slightly displaced fracture involving right femoral neck as described in detail above.? No other fracture or dislocation. 2. Mild adjacent soft tissue swelling and edema.? No significant joint effusion.? No intra-articular loose bodies.? No abnormal soft tissue calcifications. 3. No pelvic free fluid or free air. 4. Bilateral hip joint osteoarthritis.? No evidence of avascular necrosis of femoral head.? Degenerative disc disease in visualized lower lumbar spine.? ? Dictated by: Galdino Jose M.D. on 04/24/2022 at 14:57 ? ? ECG Data Interpretation: Normal sinus rhythm rate 78 IL interval 202 QRS [address] changes MDM Narrative Medical decision making narrative: Patient is a found down with right hip pain. Intertrochanteric fracture is found. Neurovascularly intact. He has found leukocytosis of 19 possibly reaction. No sign of rhabdomyolysis or infection at this time. Dr[facility] at notified, OR tomorrow Dr. Weiss accepts patient Discharge Plan Departure Patient Disposition: Admitted As Inpatient Clinical Impression: Closed fracture of right hip Admit Date/Time: 04/24/22 17:36 Admit Provider: Kelvin Weiss
[2022-04-24 12:17] VITALS: BP 162/72; PULSE 75; RESP 16; TEMP 36.7; O2SAT 94; BMI 27.1
--- NOTE | 2022-04-24 12:21 | DI.RAD.S_ITS ---
PROCEDURE: XR HIP W PEL IF DONE RT 2V INDICATIONS: pain from fall TECHNIQUE: 2 views of the hip were acquired. COMPARISON: None. FINDINGS: Bones: Bilateral moderate joint space narrowing. Normal bone mineralization. Degenerative changes noted lower lumbar spine. Soft tissues: No suspicious soft tissue calcifications or masses. IMPRESSION: Bilateral moderate hip joint space narrowing. No marginal osteophyte. Lower lumbar spine degenerative changes Approved by: Dontrell Nowak M.D. on 04/24/2022 at 12:19
--- NOTE | 2022-04-24 12:28 | DI.RAD.S_ITS ---
PROCEDURE: XR CHEST 1V INDICATIONS: fall TECHNIQUE: One view of the chest was acquired. COMPARISON: [facility], CT, CT CERVICAL SPINE WO CON, 04/24/2022, 12:44. [facility], CR, XR CHEST 1V, 02/09/2022, 23:23. [facility], CR, XR CHEST 1V, 02/08/2022, 12:06. FINDINGS: Surgical changes and devices: None. Lungs and pleura: Lungs appear clear. No pleural effusions or pneumothorax. Mediastinum: Mediastinal contours appear unchanged. Heart size is prominent. Bones and chest wall: No suspicious bony lesions. Overlying soft tissues appear unremarkable. IMPRESSION: No acute cardiopulmonary abnormality. Dictated by: Broderick Chahal M.D. on 04/24/2022 at 13:08 Approved by: Broderick Chahal M.D. on 04/24/2022 at 13:11
--- NOTE | 2022-04-24 12:28 | DI.CT.S_ITS ---
PROCEDURE: CT CERVICAL SPINE WO CON INDICATIONS: fall TECHNIQUE: Noncontrast 3 mm thick sections acquired from the skull base to the T4 level. Sagittal and coronal reformats were then constructed. For radiation dose reduction, the following was used: automated exposure control, adjustment of mA and/or kV according to patient size. COMPARISON: None. FINDINGS: Image quality: Excellent. Bones: No fractures or dislocations. Moderate degenerative change in the cervical spine. Visualized superior ribs are intact. Soft tissues: Prevertebral soft tissues are normal in thickness. No paravertebral hematomas. No apical pneumothoraces. Extensive calcification at the carotid bulbs. IMPRESSION: No acute osseous abnormality. Dictated by: Broderick Chahal M.D. on 04/24/2022 at 13:01 Approved by: Broderick Chahal M.D. on 04/24/2022 at 13:04
--- NOTE | 2022-04-24 12:28 | DI.CT.S_ITS ---
PROCEDURE: CT HEAD/BRAIN WO CON INDICATIONS: fall TECHNIQUE: Noncontrast 4.5 mm thick angled axial sections acquired from the foramen magnum to the vertex, with coronal and sagittal reformats. For radiation dose reduction, the following was used: automated exposure control, adjustment of mA and/or kV according to patient size. COMPARISON: [facility], CT, CT HEAD/BRAIN WO CON, 02/09/2022, 23:46. FINDINGS: Image quality: Good. CSF spaces: Basal cisterns are patent. No extra-axial fluid collections. The ventricles are symmetric in size and shape. Brain: No intracranial bleeds or masses. Encephalomalacia in the right frontal lobe is unchanged. There is cerebral volume loss for age, with resultant ventricular and sulcal prominence. There are periventricular and deep white matter chronic small vessel ischemic changes. There is intracranial internal carotid artery atherosclerosis. Skull and face: Calvarium and visualized facial bones appear intact, without suspicious lesions. Suspected bandage at the left frontal calvarium. Sinuses: Visualized sinuses and mastoids are clear. IMPRESSION: No acute intracranial hemorrhage. Encephalomalacia at the right frontal cortex is unchanged. Chronic microvascular ischemic disease. Dictated by: Broderick Chahal M.D. on 04/24/2022 at 13:05 Approved by: Broderick Chahal M.D. on 04/24/2022 at 13:08
[2022-04-24] MEDS: SODIUM CHLORIDE 0.9% 1,000 ML 150 ML IV (13:32)
[2022-04-24] MEDS: MORPHINE 2 MG/ML INJ IV ×2 (13:32→15:55)
[2022-04-24 13:35] LABS: COVID19 -Nasal RAPID Negative (Negative)
--- NOTE | 2022-04-24 13:54 | DI.CT.S_ITS ---
PROCEDURE: CT PEL WO CON INDICATIONS: very tender right side fall TECHNIQUE: Noncontrast 3 mm axial sections acquired through the bony pelvis, with coronal and sagittal reformatting. COMPARISON: [facility], CR, XR HIP W PEL IF DONE RT 2V, 04/24/2022, 12:29. FINDINGS: Image quality: Excellent. Bones: There is an acute comminuted fracture involving subcapital region of right femoral neck with fracture lines extending to base of greater and lesser trochanters. Slight anterior and superior displacement of right proximal femur in relation to femoral head is noted. No significant displacement of greater or lesser trochanteric fractured fragments. Moderate bilateral hip joint osteoarthritic changes are seen. No evidence of avascular necrosis of femoral head. No other fracture or dislocation. Degenerative disc disease in visualized lower lumbar spine is seen. Soft tissues: Soft tissue swelling and edema surrounding right femoral neck fracture site is noted. No significant joint effusion. No intra-articular loose bodies or abnormal soft tissue calcifications. There is no pelvic free fluid or free air. No abnormal bowel wall thickening. Extensive sigmoid diverticulosis is seen without evidence of acute diverticulitis. Enlarged prostate gland is noted with mass effect on floor of urinary bladder. No bladder wall abnormalities. IMPRESSION: 1. Acute comminuted and slightly displaced fracture involving right femoral neck as described in detail above. No other fracture or dislocation. 2. Mild adjacent soft tissue swelling and edema. No significant joint effusion. No intra-articular loose bodies. No abnormal soft tissue calcifications. 3. No pelvic free fluid or free air. 4. Bilateral hip joint osteoarthritis. No evidence of avascular necrosis of femoral head. Degenerative disc disease in visualized lower lumbar spine. Dictated by: Galdino Jose M.D. on 04/24/2022 at 14:57 Approved by: Galdino Jose M.D. on 04/24/2022 at 15:00
--- NOTE | 2022-04-24 14:16 | PC.NURSE ---
Huma daughter/DPOA requesting that no information be shared with additional family members. Huma requesting that information be shared with only her.
[2022-04-24 14:28] LABS: Add Manual Diff / Slide Review NO; Basophils Absolute Auto 0 /uL (0-100); Basophils Percent Auto 0.3 % (0-2); Eosinophils Absolute Auto 0 /uL (0-450); Eosinophils Percent Auto 0.1 % (2-4); Hematocrit 35.7 % (41-53); Hemoglobin 11.7 g/dL (13.5-17.5); Lymphocytes Absolute Auto 700 /uL (1100-4500); Lymphocytes Percent Auto 3.8 % (25-40); Mean Corpuscular HGB Conc 32.8 % (30-36); Mean Corpuscular Hemoglobin 29.7 PG (26-34); Mean Corpuscular Volume 90.7 fL (80-100); Monocytes Absolute Auto 1000 /uL (0-900); Neutrophils Absolute Auto 17900 /uL (1500-7000); Neutrophils Percent Auto 90.8 % (50-75); Platelet Count 212 X10^3/uL (150-400); Red Blood Cell Count 3.94 X10^6/uL (4.5-5.9); Red Cell Distribution Width 19.7 % (11.6-14.8); White Blood Cell Count 19.7 X10^3/uL (4.5-11.0)
[2022-04-24 14:39] LABS: Alanine Aminotransferase 11 IU/L (<50); Albumin 3.9 g/dL (3.5-5.0); Albumin Globulin Ratio 1.1 (1.0-2.8); Alkaline Phosphatase 73 U/L (38-126); Aspartate Aminotransferase 21 IU/L (17-59); BUN Creatinine Ratio 15.7 (6-22); Bilirubin Total 0.4 mg/dL (0.2-1.3); Blood Urea Nitrogen 14 mg/dL (9-20); Carbon Dioxide 27 mmol/L (22-32); Chloride 107 mmol/L (98-107); Creatine Kinase 36 U/L (55-170); Estimated Glomerular Filt Rate > 60 mL/min (>60); Globulin 3.5 g/dL (1.7-4.1); Glucose 115 mg/dL (80-110); HEMOLYSIS < 15 (0-50); Lipase 97 U/L (23-300); Sodium 140 mmol/L (137-145); Total Protein 7.4 g/dL (6.3-8.2)
[2022-04-24 14:40] LABS: Lactate (Lactic Acid) 1.6 mmol/L (0.7-2.1)
[2022-04-24 14:49] LABS: Troponin I < 0.012 ng/mL (0.01-0.034)
--- NOTE | 2022-04-24 16:05 | PC.NURSE ---
morphine administered and pt assisted to use urinal. condom catheter applied for comfort. pt states repeatedly get me a doctor, you aren't doing anything to help me. i want first class treatment not a nurse. Dr. Christian aware.
[2022-04-24] MEDS: HYDROMORPHONE 0.5 MG INJ IV (16:13)
[2022-04-24 16:17] LABS: Appearance Urine UA CLEAR; Bilirubin Urine UA NEGATIVE (NEGATIVE); Color Urine UA YELLOW; Glucose Urine UA NEGATIVE (Negative); Ketones Urine UA NEGATIVE (NEGATIVE); Leukocyte Esterase Urine UA NEGATIVE (NEGATIVE); Nitrite Urine UA NEGATIVE (Negative); Occult Blood Urine UA TRACE-INTACT (Negative); Protein Urine UA TRACE (Negative); Specific Gravity Urine UA 1.015 (1.000-1.035); Urobilinogen Urine UA 0.2 E.U./dL (0.2)
[2022-04-24 16:52] LABS: Procalcitonin 0.06 ng/mL (<0.5)
[2022-04-24 17:44] LABS: Bacteria Urine None Seen; Culture Indicated Urine Cult Not Indicated; Hyaline Casts Urine 0-1/LPF; Mucus Urine 1+ (Negative); RBC Urine None Seen (0-5/HPF); WBC Urine None Seen (0-5/HPF)
[2022-04-24 18:05] VITALS: BMI 27.1
--- NOTE | 2022-04-24 19:06 | PM.CN ---
History of Present Illness Consult details Date Patient Seen: 04/24/22 Time Patient Seen: 19:21 Chief complaint: GLF Reason for consult: Right hip fracture Requesting provider: Kary Christian Narrative: Patient is an 86-year-old male with a history dementia that had a ground level fall onto the right side. Right hip pain and was unable to ambulate. He was brought to [facility] Emergency Room where x-rays and CT scan were done. Patient has a right intertrochanteric hip fracture. This does extend down the level of the lesser trochanter. He was indicated for operative treatment. He tells me this fracture was actually on Friday 2 days ago and he laid at home for 2 days until his daughter found him. He states at home he ambulated with a cane for balance. He states that he and his daughter make medical decisions together. He has a bandage on his head but denies other injuries. States he does have some baseline hip and back pain. Mostly on the left side. Meds Home Medications and Allergies Home Medications Medication Instructions Recorded Confirmed Type cholecalciferol (vitamin D3) 50 2,000 unit PO DAILY 02/13/21 02/10/22 History mcg (2,000 unit) capsule (Vitamin D3) pantoprazole 40 mg tablet,delayed 40 mg PO BID #180 tabs 08/28/21 02/10/22 Rx release allopurinol 100 mg tablet 100 mg PO DAILY #90 tabs 10/23/21 02/10/22 Rx atenolol 50 mg tablet 50 mg PO BID #180 tabs 10/23/21 02/10/22 Rx tamsulosin 0.4 mg capsule 0.4 mg PO BEDTIME #90 caps 10/23/21 02/10/22 Rx melatonin 5 mg tablet 5 mg PO BEDTIME 11/02/21 02/10/22 History duloxetine 20 mg capsule,delayed 20 mg PO DAILY #90 caps 02/04/22 02/10/22 Rx release potassium chloride 20 mEq 20 meq PO DAILY #90 tabs 02/04/22 02/10/22 Rx tablet,extended release Saccharomyces boulardii 250 mg 250 mg PO DAILY 02/10/22 02/10/22 History capsule (Florastor) acetaminophen 325 mg tablet 650 mg PO Q6H PRN pain #30 tabs 02/16/22 Rx amlodipine 10 mg tablet 10 mg PO DAILY #90 tabs 02/28/22 Rx gabapentin 300 mg capsule 300 mg PO TID #90 caps 04/23/22 Rx Allergies Allergy/AdvReac Type Severity Reaction Status Date / Time No Known Drug Allergies Allergy Verified 04/24/22 12:21 Review of Systems Review of Systems Narrative: Denies fevers chills nausea or vomiting endorses some history of left hip and back pain. Endorses current right hip pain. Otherwise negative per patient report. Although there is some limitation is in mental condition Exam Vital Signs (past 8 hours): - 04/24/22 12:17 04/24/22 18:05 Temperature 98.1 F Pulse Rate 75 Respiratory Rate 16 Blood Pressure 162/72 H Pulse Oximetry 94 Oxygen Delivery Method Room Air Nasal Cannula Oxygen Delivery Method Nasal Cannula Narrative Exam Narrative: Alert male lying in bed. No acute distress. There is a bandage on his right side of his head. Breathing is unlabored. Lungs are clear. Abdomen is soft. Heart is regular rate and rhythm. Musculoskeletal exam moves bilateral upper extremities without difficulty. Right lower extremity slightly shortened. Lysed with both extremities externally rotated. No pain around the knee or ankle. Demonstrates dorsiflexion plantar flexion wiggles toes. Calves are soft. Left lower extremity nontender to palpation foot ankle lower leg knee and hip attended tenderness. Remainder of motor sensory exam limited due to known hip fracture on the right side. No Todd sensation grossly intact. Palpable dorsalis pedis pulses bilaterally Objective Imaging CT scan pelvis: My impression: Right intertrochanteric hip fracture moderate bilateral hip arthritis, disc degeneration in the lumbar spine is seen. AP pelvis and right lateral hip: My impression: Lucent line on the lateral extending to level of lesser trochanter and increased valgus and rotation on right hip suggestive of intertrochanteric hip fracture Labs Result Diagrams: 04/24/22 14:12 04/24/22 14:12 Labs: Laboratory Results - last 24 hr 04/24/22 04/24/22 04/24/22 12:55 14:12 14:12 WBC 19.7 H RBC 3.94 L Hgb 11.7 L Hct 35.7 L MCV 90.7 MCH 29.7 MCHC 32.8 RDW 19.7 H Plt Count 212 Neut % (Auto) 90.8 H Lymph % (Auto) 3.8 L [place] % (Auto) 5.0 Eos % (Auto) 0.1 L Baso % (Auto) 0.3 Neut # (Auto) 71673 H Lymph # (Auto) 700 L [place] # (Auto) 1000 H Eos # (Auto) 0 Baso # (Auto) 0 Sodium 140 Potassium 4.0 Chloride 107 Carbon Dioxide 27 BUN 14 Creatinine 0.89 Estimated GFR > 60 BUN/Creatinine Ratio 15.7 Glucose 115 H Lactate Calcium 9.0 Total Bilirubin 0.4 AST 21 ALT 11 Alkaline Phosphatase 73 Total Creatine Kinase 36 L CK-MB (CK-2) TNP CK-MB (CK-2) Rel Index TNP Troponin I < 0.012 Total Protein 7.4 Albumin 3.9 Globulin 3.5 Albumin/Globulin Ratio 1.1 Lipase 97 Procalcitonin Urine Color Urine Appearance Urine pH Ur Specific [place] Urine Protein Urine Glucose (UA) Urine Ketones Urine Occult Blood Urine Nitrate Urine Bilirubin Urine Urobilinogen Ur Leukocyte Esterase Urine RBC Urine WBC Urine Bacteria Hyaline Casts Urine Mucus Ur Culture Indicated? SARS-CoV-2 (PCR) Negative 04/24/22 04/24/22 04/24/22 14:12 14:12 15:56 WBC RBC Hgb Hct MCV MCH MCHC RDW Plt Count Neut % (Auto) Lymph % (Auto) [place] % (Auto) Eos % (Auto) Baso % (Auto) Neut # (Auto) Lymph # (Auto) [place] # (Auto) Eos # (Auto) Baso # (Auto) Sodium Potassium Chloride Carbon Dioxide BUN Creatinine Estimated GFR BUN/Creatinine Ratio Glucose Lactate 1.6 Calcium Total Bilirubin AST ALT Alkaline Phosphatase Total Creatine Kinase CK-MB (CK-2) CK-MB (CK-2) Rel Index Troponin I Total Protein Albumin Globulin Albumin/Globulin Ratio Lipase Procalcitonin 0.06 Urine Color Yellow Urine Appearance Clear Urine pH 5.0 Ur Specific [place] 1.015 Urine Protein Trace H Urine Glucose (UA) Negative Urine Ketones Negative Urine Occult Blood Trace-intact Urine Nitrate Negative Urine Bilirubin Negative Urine Urobilinogen 0.2 Ur Leukocyte Esterase Negative Urine RBC None seen Urine WBC None seen Urine Bacteria None seen Hyaline Casts 0-1/lpf Urine Mucus 1+ H Ur Culture Indicated? 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 Plan for operative fixation of his hip fracture tomorrow. Surgery currently scheduled for 11:30 a.m.. Will need to be NPO 8 hours prior to surgery time. Patient is not on any anticoagulation previous history prophylactic anticoagulation after surgery. Assessment & Plan narrative: The patient is an 86-year-old male with a history of some memory issues and dementia but has lived independently. He fell apparently possibly 2 days ago and has been down for 2 days before he was brought to the hospital. His CK is pending. He was found to have a right hip fracture. He is indicated for fixation of his hip fracture. He does have a white count with a shift. A he is admitted to the medicine team will be worked up for this. He does not have a fever. We discussed the object of fixation is to allow immediate weight-bearing. Expect this to be with assistive devices which in this case will likely be a walker and he will need half-way discharge. Risks of surgery are persistence of pain nonhealing of the fracture need for additional surgeries, infection, hardware complications, nerve and vascular problems. Pneumonia, blood clots, pulmonary embolism, stroke, paralysis, . We discussed the surgery is planned for mid day tomorrow right now scheduled for 30. The patient's site of surgery is marked. COVID-19 COVID-19 status: Negative Time Spent With Patient Time with patient: 30 to 49 minutes with 50% spent counseling/coordinating care Critical Care time: I spent a total of [] minutes of critical care time on this patient's care today; this time is exclusive of procedural time.
[2022-04-24 19:45] VITALS: BP 156/77; PULSE 87; RESP 18; TEMP 36.5; O2SAT 94
[2022-04-24 20:20] VITALS: PULSE 81; RESP 16; O2SAT 94
[2022-04-24] MEDS: PIPERACILLIN/TAZO 4.5 GM in SODIUM CHLORIDE 0.9% 100 ML IV (20:25)
[2022-04-24] MEDS: OXYCODONE IR 10 MG TABLET PO (20:35)
[2022-04-24] MEDS: atenoloL 50 MG TABLET PO (20:35)
[2022-04-24] MEDS: SODIUM CHLORIDE 0.9% 1,000 ML 42 ML IV (20:35)
[2022-04-24] MEDS: GABAPENTIN 300 MG CAPSULE PO (20:35)
[2022-04-24] MEDS: PANTOPRAZOLE DR 40 MG TABLET PO (20:35)
[2022-04-24] MEDS: TAMSULOSIN 0.4 MG CAPSULE PO (20:35)
[2022-04-24 23:49] VITALS: BP 145/71; PULSE 74; RESP 18; TEMP 36.6; O2SAT 95
[2022-04-25] VITALS (17 sets, daily range): BP systolic 115–139; BP diastolic 47–92; PULSE 63–85; RESP 18–24; TEMP 35.9–37.2; O2SAT 90–96; BMI 27.1
--- NOTE | 2022-04-25 00:44 | P.HP_ITS ---
History of Present Illness History of Present Illness Date Patient Seen: 04/24/22 Time Patient Seen: 18:05 Chief complaint: GLF Narrative: ?Klever George is an 86-year-old male history of hypertension, hypothyroidism, sleep apnea, prior stroke, CHF, dementia and recent Herpes zoster ophthalmicus/keratitis/occular HTN left eye, cellulitis of left side of face presenting today after ground level fall.? He reported to the ED he tripped and fell landed on concrete at his home.? Patient is confused and a poor historian unable to accurately participate in HPI, ROS, family or personal medical history medication reconciliation. Upon admit exam he denies TOBIN, dizziness lightheadedness, chest pain, palpitations, shortness of breath, abdominal pain, nausea, vomiting, diarrhea, chills, fever. It was reported to the ED that he laid there for a few hours before his daughter found him.? He is complaining of right hip pain.? States he did hit his head he did not lose consciousness.? He is not on anticoagulation medication.? Was previously noted that he likely would benefit from SNF however he was refused placement. Patient's vitals upon admit temp 98.1?, BP 162/72, HR 75, R 16, O2 saturation 94% on room air. I found the patient have substantial bruising inflammation to the left side of his face including the left eye, was unable to open his eye. Patient was unaware. Patient has a elevated white count 19.7, with a left shift neutrophils 17,900, mono #1000, patient's RBC 3.94, HGB 11.7, HCT 35.7, T CK is 36, urinalysis was negative, COVID was negative, lipase and procalcitonin more than normal limits, patient's chest x-ray was negative for any acute cardiopulmonary processes, patient's head CT was negative for any acute intracranial processes. C-spine was unremarkable. Pelvis CT demonstrated an acute comminuted and slightly displaced fracture involving right femoral neck, with mild adjacent soft tissue swelling and edema.? No significant joint effusion.? No intra-articular loose bodies.? Patient is admitted for ground level fall resulting in a pathological closed displaced fracture of the right femoral neck, ? 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 Surgical History History of ectropion repair (10/2017) Hx of surgical procedure Family & Social History Family History Family/Other Unknown family medical history Social History: household members none Safety & Behavioral: Feels Safe in Current Yes Environment Been Physically Hurt or No Threatened By a Person Tobacco & Substance use: Tobacco type cigarettes Smoking Status Current some day smoker alcohol intake current alcohol intake frequency 0-2 drinks per day Substance Use Type does not use Meds Home Medications and Allergies Home Medications Medication Instructions Recorded Confirmed Type cholecalciferol (vitamin D3) 50 2,000 unit PO DAILY 02/13/21 02/10/22 History mcg (2,000 unit) capsule (Vitamin D3) pantoprazole 40 mg tablet,delayed 40 mg PO BID #180 tabs 08/28/21 02/10/22 Rx release allopurinol 100 mg tablet 100 mg PO DAILY #90 tabs 10/23/21 02/10/22 Rx atenolol 50 mg tablet 50 mg PO BID #180 tabs 10/23/21 02/10/22 Rx tamsulosin 0.4 mg capsule 0.4 mg PO BEDTIME #90 caps 10/23/21 02/10/22 Rx melatonin 5 mg tablet 5 mg PO BEDTIME 11/02/21 02/10/22 History duloxetine 20 mg capsule,delayed 20 mg PO DAILY #90 caps 02/04/22 02/10/22 Rx release potassium chloride 20 mEq 20 meq PO DAILY #90 tabs 02/04/22 02/10/22 Rx tablet,extended release Saccharomyces boulardii 250 mg 250 mg PO DAILY 02/10/22 02/10/22 History capsule (Florastor) acetaminophen 325 mg tablet 650 mg PO Q6H PRN pain #30 tabs 02/16/22 Rx amlodipine 10 mg tablet 10 mg PO DAILY #90 tabs 02/28/22 Rx gabapentin 300 mg capsule 300 mg PO TID #90 caps 04/23/22 Rx Allergies Allergy/AdvReac Type Severity Reaction Status Date / Time No Known Drug Allergies Allergy Verified 04/24/22 12:21 Review of Systems Review of Systems Narrative: All 12 point systems reviewed with the patient and are negative except otherwise documented. Please note due to patient's altered level of consciousness unable to accurately participate in ROS. Exam Vital Signs (past 8 hours): - 04/24/22 18:05 04/24/22 19:45 04/24/22 20:20 Temperature 97.7 F Pulse Rate 87 81 Respiratory Rate 18 16 Blood Pressure 156/77 H Pulse Oximetry 94 94 Oxygen Delivery Method Nasal Cannula Nasal Cannula Oxygen Flow Rate 2 2 Fraction of Inspired Oxygen 28 04/24/22 23:49 Temperature 97.9 F Pulse Rate 74 Respiratory Rate 18 Blood Pressure 145/71 H Pulse Oximetry 95 Oxygen Delivery Method Oxygen Flow Rate 2 Fraction of Inspired Oxygen Fraction of Inspired Oxygen 28 SaO2/FiO2 Ratio 335 Oxygen Delivery Method Nasal Cannula Oxygen Flow Rate 2 Narrative Exam Narrative: General: Patient is a disheveled poorly groomed male confused physically appears in poor health, resting calmly in no distress at this time. HEENT: Normocephalic, Left side of face mild inflammation, diffuse erythema and bruising, the left eye appears swollen shut the patient does not follow commands and does not open it when request, oral pharynx is clear and mucous membranes are moist. Neck is supple and symmetric, trachea is midline, no danielito opathy, no thyroid enlargement, nontender, no masses palpated. Negative for JVD Chest: Normal AP diameter and contour without kyphoscoliosis, no nasal flaring, retractions, or tachypneic labored breathing Lungs: Auscultation of all lung zeng are clear without adventitious sounds, wheezes, rhonchi, or rales. Cardio: S1 & S2 with regular rate and rhythm without murmur, rubs, or gallops, no carotid bruit, no cardiac pulsations present. Abdomen: Soft nontender, negative for organomegaly, or masses. Bowel sounds are present in all 4 quadrants without guarding or rebound, no CVA tenderness. Musculoskeletal: Muscle strength and tone are equal within normal limits, no deformity, crepitus, effusions, cyanosis, clubbing or edema present. Full range of motion intact radial and pedal pulses are normal. With the exception of the right leg which is shorter than the left, with no external rotation, pedal and popliteal pulses are intact. Skin: Warm significantly dry cracking especially on the bilateral upper forearms, no signs of active infection at this time. Neuro: Alert and orientated x3, strength is +5/5 in all extremities, sensation to touch intact, no gross deficits noted of cranial nerves. Psych: Patient has a poorly kept appearance, confused, he was able to tell me his name. Objective Labs Result Diagrams: 04/24/22 14:12 04/24/22 14:12 Labs: Laboratory Results - last 24 hr 04/24/22 04/24/22 04/24/22 12:55 14:12 14:12 WBC 19.7 H RBC 3.94 L Hgb 11.7 L Hct 35.7 L MCV 90.7 MCH 29.7 MCHC 32.8 RDW 19.7 H Plt Count 212 Neut % (Auto) 90.8 H Lymph % (Auto) 3.8 L [place] % (Auto) 5.0 Eos % (Auto) 0.1 L Baso % (Auto) 0.3 Neut # (Auto) 26574 H Lymph # (Auto) 700 L [place] # (Auto) 1000 H Eos # (Auto) 0 Baso # (Auto) 0 Sodium 140 Potassium 4.0 Chloride 107 Carbon Dioxide 27 BUN 14 Creatinine 0.89 Estimated GFR > 60 BUN/Creatinine Ratio 15.7 Glucose 115 H Lactate Calcium 9.0 Total Bilirubin 0.4 AST 21 ALT 11 Alkaline Phosphatase 73 Total Creatine Kinase 36 L CK-MB (CK-2) TNP CK-MB (CK-2) Rel Index TNP Troponin I < 0.012 Total Protein 7.4 Albumin 3.9 Globulin 3.5 Albumin/Globulin Ratio 1.1 Lipase 97 Procalcitonin Urine Color Urine Appearance Urine pH Ur Specific [place] Urine Protein Urine Glucose (UA) Urine Ketones Urine Occult Blood Urine Nitrate Urine Bilirubin Urine Urobilinogen Ur Leukocyte Esterase Urine RBC Urine WBC Urine Bacteria Hyaline Casts Urine Mucus Ur Culture Indicated? SARS-CoV-2 (PCR) Negative 04/24/22 04/24/22 04/24/22 14:12 14:12 15:56 WBC RBC Hgb Hct MCV MCH MCHC RDW Plt Count Neut % (Auto) Lymph % (Auto) [place] % (Auto) Eos % (Auto) Baso % (Auto) Neut # (Auto) Lymph # (Auto) [place] # (Auto) Eos # (Auto) Baso # (Auto) Sodium Potassium Chloride Carbon Dioxide BUN Creatinine Estimated GFR BUN/Creatinine Ratio Glucose Lactate 1.6 Calcium Total Bilirubin AST ALT Alkaline Phosphatase Total Creatine Kinase CK-MB (CK-2) CK-MB (CK-2) Rel Index Troponin I Total Protein Albumin Globulin Albumin/Globulin Ratio Lipase Procalcitonin 0.06 Urine Color Yellow Urine Appearance Clear Urine pH 5.0 Ur Specific [place] 1.015 Urine Protein Trace H Urine Glucose (UA) Negative Urine Ketones Negative Urine Occult Blood Trace-intact Urine Nitrate Negative Urine Bilirubin Negative Urine Urobilinogen 0.2 Ur Leukocyte Esterase Negative Urine RBC None seen Urine WBC None seen Urine Bacteria None seen Hyaline Casts 0-1/lpf Urine Mucus 1+ H Ur Culture Indicated? Cult not indicated SARS-CoV-2 (PCR) Assessment & Plan Assessment & Plan narrative: ?Klever George is an 86-year-old male history of hypertension, hypothyroidism, sleep apnea, prior stroke, CHF, dementia and recent Herpes zoster ophthalmicus/keratitis/occular HTN left eye, cellulitis of left side of face presenting today after ground level fall that has resulted in a pa thological closed displaced fracture of the right femoral neck. 1. Ground level fall, causing pathological closed displaced fracture of the right femoral neck, acute, present on admission -Dr. Vidales to consult and will manage, patient planned to go to surgery on 04/25/2022 at approximately 1130 Am -NPO @ midnight -Todd to be placed -Pain management, bed rest -Will need PT/OT after surgical procedure & SNF placement. -Fall precautions -LR @42cc/HR 2. Herpes Zoster Ophthalmicus, Keratitis, Occular HTN, Cellulitis of left side of face, acute on chronic, present on admission -Managed by Dr. Naga Fisher ophthalmology last office visit 04/09/2022-patient had stopped medications -He continues to have significant swelling to left side of face & left eye -Recommend Phone consult today regarding medication recommendations -consult placed for Naga Fisher ophthalmology 3. Worsening weakness, frequent falls, deconditioning, acute on chronic, present on admission -patient continues to deteriorate frequent hospital visits and complications, apparently refused SNF placement prior. -TECHNICAL SERVICES ANALYST consult placed in ED -patient is not safe to return home -PT/OT consult to be ordered following surgery -Likely secondary to blurred vision from zoster as well as swelling contributing 4. Leukocytosis, acute, present on admission -WBC 19.7, neutrophils 17,900, mono# 1000-possibly secondary to fracture but concerned for secondary site of infection, especially the patient is going to surgery tomorrow. -impaired broad-spectrum coverage for P aeriginosa -Zosyn -blood cultures pending, MRSA testing 5.? Chronic diastolic Congestive heart failure, acute on chronic, present on admission - Appears euvolemic currently. -Last echo 10/2021 EF55-60% 6. Hypertension, essential, acute on chronic, present on admission -Continue amlodipine and atenolol.??Admitting blood pressure 162/72 7. Gout, chronic, present on admission -Continue allopurinol 8. Hyperlipidemia, chronic, present on admission -Presently untreated 9. Depression, acute on chronic, present on admission Continue quetiapine and duloxetine. 10. BPH, chronic, present on admission Continue tamsulosin 11. History of stroke, chronic present on admission ? Patient appears to be deteriorating. 12. Obstructive sleep apnea, chronic, present on admission ? Non compliant with CPAP. 13. Altered mental status, dementia, acute on chronic, present on admission -patient's mental status continues to deteriorate. Code status: Noted in chart 02/13/2022 Dr. Tobin Code status: pt expressed feeling to be changed to DNR - will confirm with POA Surrogate decision maker: Recorded in chart as Nessa Carbone daughter COVID PCR: Negative DVT/VTE prophylaxis:Hold lovenox due to pending surgery, Left SCD only Disposition: I have utilized all available immediate resources to obtain, update, or review the patient's current medications. I confirmed that the patient's advanced care plan is present, Code status is documented and/or surrogate decision maker is listed in the patient's medical record. Time Spent With Patient Critical Care time: I spent a total of [] minutes of critical care time on this patient's care today; this time is exclusive of procedural time.
[2022-04-25] MEDS: PIPERACILLIN/TAZO 4.5 GM in SODIUM CHLORIDE 0.9% 100 ML IV (04:36)
[2022-04-25 07:31] LABS: Add Manual Diff / Slide Review NO; Basophils Absolute Auto 0 /uL (0-100); Basophils Percent Auto 0.4 % (0-2); Eosinophils Absolute Auto 100 /uL (0-450); Eosinophils Percent Auto 0.7 % (2-4); Hematocrit 34.8 % (41-53); Hemoglobin 11.7 g/dL (13.5-17.5); Lymphocytes Absolute Auto 700 /uL (1100-4500); Lymphocytes Percent Auto 8.7 % (25-40); Mean Corpuscular HGB Conc 33.5 % (30-36); Mean Corpuscular Hemoglobin 30.1 PG (26-34); Mean Corpuscular Volume 89.8 fL (80-100); Monocytes Absolute Auto 900 /uL (0-900); Monocytes Percent Auto 10.9 % (3-14); Neutrophils Absolute Auto 6400 /uL (1500-7000); Neutrophils Percent Auto 79.3 % (50-75); Platelet Count 196 X10^3/uL (150-400); Red Blood Cell Count 3.88 X10^6/uL (4.5-5.9); Red Cell Distribution Width 19.3 % (11.6-14.8); White Blood Cell Count 8.1 X10^3/uL (4.5-11.0)
[2022-04-25 07:41] LABS: BUN Creatinine Ratio 14.3 (6-22); Blood Urea Nitrogen 12 mg/dL (9-20); Calcium 8.5 mg/dL (8.4-10.2); Carbon Dioxide 29 mmol/L (22-32); Chloride 104 mmol/L (98-107); Estimated Glomerular Filt Rate > 60 mL/min (>60); Glucose 102 mg/dL (80-110); HEMOLYSIS < 15 (0-50); Potassium 3.9 mmol/L (3.4-5.1); Sodium 139 mmol/L (137-145)
[2022-04-25] MEDS: DULOXETINE 20 MG CAPSULE PO (08:45)
[2022-04-25] MEDS: GABAPENTIN 300 MG CAPSULE PO ×3 (08:45→20:13)
[2022-04-25] MEDS: OXYCODONE IR 10 MG TABLET PO ×2 (08:46→16:08)
[2022-04-25] MEDS: atenoloL 50 MG TABLET PO ×2 (08:46→20:13)
[2022-04-25] MEDS: PANTOPRAZOLE DR 40 MG TABLET PO ×2 (08:46→20:13)
[2022-04-25] MEDS: POTASSIUM CHLORIDE 20 MEQ TAB PO (08:46)
[2022-04-25] MEDS: AMLODIPINE 5 MG TABLET 10 MG PO (08:46)
[2022-04-25] MEDS: ACETAMINOPHEN 325 MG TABLET 650 MG PO ×2 (08:50→16:15)
--- NOTE | 2022-04-25 09:37 | PM.PREOP ---
Pre-operative Note COVID-19 COVID-19 status: Negative Interval Note History & Physical reviewed/Exam performed by Physician: Yes Changes to H&P: No H&P completed within 30 days and has changed as indicated here:: Right proximal femur fracture with basicervical components with trochanteric extension. Indicated for surgery. Patient's Nessa Carbone--POA for Klever George--telephone consent obtained. Patient on contact precautions for herpes simplex his head. Patient previously lived independently but would have a nurse come once a week and caregivers come to hours a day several times a week. The patient's daughter confirms that patient has memory difficulties and that he fell on Friday and was only likely down for a few hours before she found him.
--- NOTE | 2022-04-25 10:50 | PC.RNWOUND ---
Buttocks with flash Buttocks without flash Patient resting in bed, turns to left side with assist for skin inspection, says, I've had the sore (right buttock) for a long time, it's fine! Zinc-based barrier cream has been applied to buttocks, is wiped off with bath wipe but residue remains, patient about to go to surgery. There is what appears to be a 0.5cm furuncle to the right buttock, which is palpable at this time but unable to be clearly visualized due to barrier cream. Left buttock skin appears to be intact at this time, difficult to tell with certainty. Staff to transport patient to surgery is made aware of right buttock boil and possibility of redness under barrier cream. Sacral dressing left in room to be applied after surgery for protection to sacrum when cream can be wiped off more. Patient tolerates cares well.
[2022-04-25] MEDS: LACTATED RINGERS 1,000 ML 42 ML IV (11:31)
[2022-04-25] MEDS: CEFAZOLIN 2 GM/100 ML PREMIX 100 ML IV ×2 (12:06→19:01)
[2022-04-25] MEDS: BUPIVACAINE 0.25% W/ EPI 30 ML VIAL INJ (12:23)
--- NOTE | 2022-04-25 12:26 | SUR.OPER ---
Supine on padded [place] table with bilateral legs secured in padded positioning boots and suspended in positioning spars, bilateral feet wrapped in cast padding and coban, then placed in padded boot, operative leg in traction per surgeon. Head on one pillow. Arm on non-operative side secured on padded armboard <90 degrees abduction. Arm on operative side padded and resting across chest then secured with tape over sheet. Padded perineal post in place per surgeon.
--- NOTE | 2022-04-25 13:19 | DI.RAD.S_ITS ---
PROCEDURE: XR HIP W PEL IF DONE RT 4V INDICATIONS: IM NAILING TECHNIQUE: 2 view(s) of the hip acquired. COMPARISON: [facility], CR, XR HIP W PEL IF DONE RT 2V, 04/24/2022, 12:29. FINDINGS: Bones: Intraoperative fluoroscopic views of the right hip were performed demonstrating right trochanteric femoral fixation. Soft tissues: Overlying postoperative changes are noted. No suspicious soft tissue densities. IMPRESSION: Intraoperative views of trochanteric femoral fixation. Dictated by: Manfred Lynch M.D. on 04/25/2022 at 15:13 Approved by: Manfred Lynch M.D. on 04/25/2022 at 15:14
--- NOTE | 2022-04-25 13:40 | P.OP_ITS ---
Operative Date/Time/Diagnoses Date of procedure: 04/25/22 Time of procedure: 12:00 Pre-op diagnosis: Right hip fracture S72.001A Post-op diagnosis: same Procedure & Clinicians Procedure: Right cephalomedullary nail intertrochanteric hip fracture the CPT code 45058 Same procedure as scheduled: Yes Indications: Patient is an 86-year-old male with a history of dementia that had an unwitnessed ground level fall at home he was found by his daughter what is estimated to be a few hours later. He was brought to the emergency room and [facility] and found to have a BC cervical intertrochanteric variant fracture with extension into the lesser trochanter and some of the trochanter comminution of for this a basicervical intertrochanteric variant. He was indicated for surgical fixation to help with mobility and pain. We discussed the morbidity and mortality of hip fractures the patient's POA which is his daughter Nessa. The risks and benefits of the procedure have been discussed with the patient and POA and they have been given the opportunity to ask questions. The risks of surgery include but are not limited to infection, malun ion, nonunion, persistence of pain, damage to nerves and blood vessels, posttraumatic arthritis, DVT, PE, cardiopulmonary complications and . The patient and POA expressed a thorough understanding of the risks and benefits of surgery and has elected to proceed. Consent was signed. Surgeon: Shobha Craven Click Yes if Unassisted: Yes Anesthesia Type: General and Local Operative Notes Findings: Moderately displaced intertrochanteric hip fracture from basicervical region into the lesser trochanter with additional greater trochanter minimal comminution. This was reduced under fluoroscopic guidance and held on traction. Closure Type: primary Specimen(s): none sent Prosthetic devices, grafts, tissues, transplants, or devices: Oliveira and nephew inter castorena nail 11.5 x 18 100/95 lag and integrated compression screw 35 mm by 5 mm interlocking screw Estimated Blood Loss (mL): 20 Blood products transfused: none Tourniquet time (min): 0 Procedure in detail: Procedure cephalomedullary nail intertrochanteric hip fracture the CPT code 25752 Side: Right Implant Oliveira and Nephew 11.5 x 18 cm cephalomedullary nail intertan Procedure: The patient was seen and the site of surgery was marked in the preoperative area. This was the right hip. Patient was brought to the operating room and placed on the operative table and general anesthesia was administered. The patient was positioned on the fracture table in standard fashion with a well-padded boots and a padded peroneal post. An SCD was on the contralateral leg. A formal time-out was called to confirm the patient's side and site of surgery administration of preoperative antibiotics. 2 g of Ancef. All were in agreement. The operative leg was then gently manipulated under fluoroscopic guidance to obtain a closed reduction in near anatomic alignment. At this point the operative extremity was prepped and draped in the standard sterile manner. The starting point was marked out using fluoroscopic guidance and marked on the skin. A guidewire was placed percutaneously and the starting point was obtained. Incision was made over the guidewire. An opening drill was inserted to the level of the lesser trochanter. The opening Reamer and guidewire were then removed. An 18 cm cephalomedullary nail was selected. The 11.5 x 18 cm nail was then slid into the canal. The nail was advanced to the proper depth and rotation. The guide for the cephalomedullary screw was then inserted into the external handle. An incision was made and the guide was placed down to the bone. A guidewire was placed to the proper depth into the femoral head and this was confirmed on AP and lateral imaging. The tip apex distance was evaluated and appropriate. This was measured. Next the outer cortex was drilled for the interlocking screw and the anti rotation bar was placed. The cephalomedullary screw length was then measured off the drill again. A 100 mm lag screw was selected and the corresponding interlocking compression screw, 95. A guidewire was then over drilled and the lag screw placed. The anti rotation bar was removed and then the locking compression screws were placed and confirmed on biplanar fluoroscopy. The integrated compression screw was tightened. Attention was turned to the distal interlock. This 35 mm screw was placed with the guide in the standard technique. AP and lateral images were captured in the or confirming alignment hardware placement. Hip was taken through range of motion under live fluoro with the excellent range of motion and visualization of the implants. Wounds were irrigated and closed in layers with 0 Vicryl in the deep fascia. 2- 0 in the subcutaneous tissue and charlotte in the skin. 0.25% Marcaine with epinephrine was injected into the incision sites for local anesthetic. Sterile dressings were applied. There no immediate complications. Surgical counts were correct. The patient tolerated the procedure well was taken to recovery room. Complications: none Post-operative Condition: stable Disposition: PACU Plan for aftercare: Postoperative plan. Weightbear as tolerated to the surgical extremity. Work with physical therapy and occupational therapy. Discharge by primary team. Monitor hemoglobin and hematocrit postoperatively may require transfusion if needed. Encourage incentive spirometry. SCDs and Lovenox for DVT prophylaxis. Recommend Lovenox 4 weeks for hip fracture. Follow-up [facility] in 2 weeks for wound check, staple removed and repeat x- rays. Keep dressing clean dry and intact. May change of saturated. Will check x-rays on the right foot 2nd toe there was bruising noted preoperatively.
--- NOTE | 2022-04-25 14:01 | SUR.PHASEI ---
Report called to TA Solo
--- NOTE | 2022-04-25 14:39 | DI.RAD.S_ITS ---
PROCEDURE: XR TOE RT MIN 2V INDICATIONS: bruising TECHNIQUE: 3 views of the right foot 2nd digit acquired. COMPARISON: None. FINDINGS: Bones: The bones appear demineralized. Possible acute minimally impacted fracture of the distal aspect of the 2nd digit middle phalanx. No other potential acute fractures identified.. Soft tissues: No suspicious soft tissue densities. IMPRESSION: Possible acute minimally impacted fracture of the distal aspect of the 2nd digit middle phalanx. Correlation with point tenderness in this area may be helpful. If symptoms persist, follow-up radiographs and/or CT may be helpful for further evaluation. Dictated by: Eduardo Kovacs M.D. on 04/25/2022 at 15:25 Approved by: Eduardo Kovacs M.D. on 04/25/2022 at 15:32
--- NOTE | 2022-04-25 14:44 | PC.NURSE ---
Pt received lying in bed this a.m. resting, easily awakened OX1. He is very confused and forgetful, requiring reorientation. He requests to call his this a.m. but when called home phone daughter Nessa states she 12 years ago. Pt remembers falling and injuring himself but forgets when He yells out for pain medications states Im dying reassured patient this a.m. and after administering morning medications, and prn pain medications, he appeared to be much more relaxed without distress. He continues to require Nasal Canula prior to surgery on 2 L desatting to 80's on RA. He is turned this a.m. and wound care nurse at bedside, noted barrier cream to buttocks covering some maceration to gluteal fold but no observed pressure ulcers. His left eye remains closed, no drainage noted this a.m. Todd in placed draining clear yellow urine. He is taken to Preop at approximately 1040 this a.m. and returns to the unit at 1410. He is groggy upon return but arousable and mumbles yes and no, takes some ice chips and drifting in and out of sleep. X2 dressings to R hip C/D/I. Per PROPERTY SITE MANAGER plan to xray right middle toe, as it appears very bruised. He is currently on 4 L NC, VSS, afebrile.
--- NOTE | 2022-04-25 15:35 | SUR.PHASEI ---
Patient was transferred to the floor on a bed and 4LNC. IV saline locked. Dressing CDI. Report given to Germania. AMELIE stable.
[2022-04-25] MEDS: SODIUM CHLORIDE 0.9% 1,000 ML 42 ML IV (16:03)
--- NOTE | 2022-04-25 16:22 | PM.PN.1 ---
Subjective Subjective Date Patient Seen: 04/25/22 Interval history: Patient had just returned from surgery and was still groggy, but awake and denied any current complaints. Exam Vital Signs (past 8 hours): - 04/25/22 08:56 04/25/22 11:06 04/25/22 11:37 Temperature 97.8 F 99.0 F Pulse Rate 79 64 Respiratory Rate 18 24 Blood Pressure 139/64 130/79 Pulse Oximetry 93 93 95 Oxygen Delivery Method Nasal Cannula Nasal Cannula Oxygen Flow Rate 2 2 3 Fraction of Inspired Oxygen 28 04/25/22 13:43 04/25/22 13:26 04/25/22 13:28 Temperature 98.2 F Pulse Rate 63 66 65 Respiratory Rate 20 Blood Pressure 115/54 L 124/57 L 126/53 L Pulse Oximetry 96 90 L 93 Oxygen Delivery Method Nasal Cannula Nasal Cannula Nasal Cannula Oxygen Flow Rate 4 2 4 Fraction of Inspired Oxygen 04/25/22 13:33 04/25/22 13:37 04/25/22 13:49 Temperature 97.8 F Pulse Rate 66 65 65 Respiratory Rate 22 Blood Pressure 122/56 L 119/56 L 121/47 L Pulse Oximetry 96 95 93 Oxygen Delivery Method Nasal Cannula Nasal Cannula Nasal Cannula Oxygen Flow Rate 4 4 2 Fraction of Inspired Oxygen 04/25/22 14:10 04/25/22 14:40 04/25/22 14:40 Temperature 96.6 F L 96.8 F L 96.8 F L Pulse Rate 64 66 66 Respiratory Rate 18 18 18 Blood Pressure 123/67 124/66 124/66 Pulse Oximetry 94 96 96 Oxygen Delivery Method Oxygen Flow Rate 4 0 4 Fraction of Inspired Oxygen 04/25/22 15:20 Temperature 96.7 F L Pulse Rate 68 Respiratory Rate 18 Blood Pressure 132/92 H Pulse Oximetry 91 Oxygen Delivery Method Oxygen Flow Rate 4 Fraction of Inspired Oxygen Fraction of Inspired Oxygen 28 SaO2/FiO2 Ratio 332 Oxygen Delivery Method Nasal Cannula Oxygen Flow Rate 4 Narrative Exam Narrative: General: Patient is a disheveled poorly groomed male confused physically appears in poor health, resting calmly in no distress at this time. HEENT: Normocephalic, left eye inflamed, ? chronicity Neck is supple and symmetric, trachea is midline, Chest: Normal AP diameter and contour without kyphoscoliosis Lungs: Auscultation of all lung zeng are clear without adventitious sounds, wheezes, rhonchi, or rales. Cardio: regular rate and rhythm without murmur, rubs, or gallops Abdomen: S NT ND Musculoskeletal: no edema or joint effusions Skin: Warm significantly dry cracking especially on the bilateral upper forearms, no signs of active infection at this time. Neuro: Alert and orientated x3, no gross deficits noted of cranial nerves, falls asleep easily shortly after surgery.. Objective Labs Result Diagrams: 04/25/22 06:47 04/25/22 06:47 Labs: Laboratory Results - last 24 hr 04/24/22 04/24/22 04/24/22 05:50 14:12 15:56 WBC RBC Hgb Hct MCV MCH MCHC RDW Plt Count Neut % (Auto) Lymph % (Auto) [place] % (Auto) Eos % (Auto) Baso % (Auto) Neut # (Auto) Lymph # (Auto) [place] # (Auto) Eos # (Auto) Baso # (Auto) Sodium Potassium Chloride Carbon Dioxide BUN Creatinine Estimated GFR BUN/Creatinine Ratio Glucose Calcium Procalcitonin 0.06 Urine Color Yellow Urine Appearance Clear Urine pH 5.0 Ur Specific [place] 1.015 Urine Protein Trace H Urine Glucose (UA) Negative Urine Ketones Negative Urine Occult Blood Trace-intact Urine Nitrate Negative Urine Bilirubin Negative Urine Urobilinogen 0.2 Ur Leukocyte Esterase Negative Urine RBC None seen Urine WBC None seen Urine Bacteria None seen Hyaline Casts 0-1/lpf Urine Mucus 1+ H Ur Culture Indicated? Cult not indicated Nasal Screen MRSA (PCR) Negative for mrsa 04/25/22 04/25/22 06:47 06:47 WBC 8.1 D RBC 3.88 L Hgb 11.7 L Hct 34.8 L MCV 89.8 MCH 30.1 MCHC 33.5 RDW 19.3 H Plt Count 196 Neut % (Auto) 79.3 H Lymph % (Auto) 8.7 L [place] % (Auto) 10.9 Eos % (Auto) 0.7 L Baso % (Auto) 0.4 Neut # (Auto) 6400 Lymph # (Auto) 700 L [place] # (Auto) 900 Eos # (Auto) 100 Baso # (Auto) 0 Sodium 139 Potassium 3.9 Chloride 104 Carbon Dioxide 29 BUN 12 Creatinine 0.84 Estimated GFR > 60 BUN/Creatinine Ratio 14.3 Glucose 102 Calcium 8.5 Procalcitonin Urine Color Urine Appearance Urine pH Ur Specific [place] Urine Protein Urine Glucose (UA) Urine Ketones Urine Occult Blood Urine Nitrate Urine Bilirubin Urine Urobilinogen Ur Leukocyte Esterase Urine RBC Urine WBC Urine Bacteria Hyaline Casts Urine Mucus Ur Culture Indicated? 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 Surgical History History of ectropion repair (10/2017) Hx of surgical procedure Family History Family/Other Unknown family medical history Social History household members: none Smoking Status: Current some day smoker alcohol intake: current Assessment & Plan Assessment & Plan narrative: ?Klever George is an 86-year-old male history of hypertension, hypothyroidism, sleep apnea, prior stroke, CHF, dementia and recent Herpes zoster ophthalmicus/keratitis/occular HTN left eye, cellulitis of left side of face presenting today after ground level fall that has resulted in a pathological closed displaced fracture of the right femoral neck. 1. Ground level fall, causing pathological closed displaced fracture of the right femoral neck, acute, present on admission -s/p operative interventions today -suspect he will need SNF at discharge, but pending PT/OT assessments likely tomorrow given OR today. 2. Herpes Zoster Ophthalmicus, Keratitis, Occular HTN, Cellulitis of left side of face, acute on chronic, present on admission -Managed by Dr. Naga Fisher ophthalmology last office visit 04/09/2022-patient had stopped medications -He continues to have significant swelling to left side of face & left eye, though does not appear to have any current active infection. 3. Worsening weakness, frequent falls, deconditioning, acute on chronic, present on admission - continue PT/OT 4. Leukocytosis, acute, present on admission -likely reactive to fall, stop zosyn. No evidence of infection currently otherwise. 5.? Chronic diastolic Congestive heart failure, acute on chronic, present on admission - Appears euvolemic currently. -Last echo 10/2021 EF55-60% 6. Hypertension, essential, acute on chronic, present on admission -Continue amlodipine and atenolol.??Admitting blood pressure 162/72 7. Gout, chronic, present on admission -Continue allopurinol 8. Hyperlipidemia, chronic, present on admission -Presently untreated 9. Depression, acute on chronic, present on admission Continue quetiapine and duloxetine. 10. BPH, chronic, present on admission Continue tamsulosin 11. History of stroke, chronic present on admission ? Patient appears to be deteriorating. 12. Obstructive sleep apnea, chronic, present on admission ? Non compliant with CPAP. 13. dementia, chronic, present on admission Code status: DNR Surrogate decision maker: Recorded in chart as Nessa Carbone daughter COVID PCR: Negative DVT/VTE prophylaxis: per ortho Disposition: hopeful for SNF I have utilized all available immediate resources to obtain, update, or review the patient's current medications. I confirmed that the patient's advanced care plan is present, Code status is documented and/or surrogate decision maker is listed in the patient's medical record. Time Spent With Patient Critical Care time: I spent a total of [] minutes of critical care time on this patient's care today; this time is exclusive of procedural time.
--- NOTE | 2022-04-25 16:58 | P.PN_ITS ---
Subjective Subjective Date Patient Seen: 04/25/22 Time Patient Seen: 16:59 Interval history: X-ray of right 2nd toe evaluated does demonstrate fracture 2nd toe middle phalanx. No significant displacement. Appropriate for non operative treatment. May weight bear in a regular shoe or if significant pain then a postoperative shoe for any hard sole shoe would be reasonable. If gluten settling tender can delroy tape to the 3rd digit. Exam Vital Signs (past 8 hours): - 04/25/22 11:06 04/25/22 11:37 04/25/22 13:43 Temperature 99.0 F Pulse Rate 64 63 Respiratory Rate 24 20 Blood Pressure 130/79 115/54 L Pulse Oximetry 93 95 96 Oxygen Delivery Method Nasal Cannula Nasal Cannula Nasal Cannula Oxygen Flow Rate 2 3 4 Fraction of Inspired Oxygen 28 04/25/22 13:26 04/25/22 13:28 04/25/22 13:33 Temperature 98.2 F Pulse Rate 66 65 66 Respiratory Rate Blood Pressure 124/57 L 126/53 L 122/56 L Pulse Oximetry 90 L 93 96 Oxygen Delivery Method Nasal Cannula Nasal Cannula Nasal Cannula Oxygen Flow Rate 2 4 4 Fraction of Inspired Oxygen 04/25/22 13:37 04/25/22 13:49 04/25/22 14:10 Temperature 97.8 F 96.6 F L Pulse Rate 65 65 64 Respiratory Rate 22 18 Blood Pressure 119/56 L 121/47 L 123/67 Pulse Oximetry 95 93 94 Oxygen Delivery Method Nasal Cannula Nasal Cannula Oxygen Flow Rate 4 2 4 Fraction of Inspired Oxygen 04/25/22 14:40 04/25/22 14:40 04/25/22 15:20 Temperature 96.8 F L 96.8 F L 96.7 F L Pulse Rate 66 66 68 Respiratory Rate 18 18 18 Blood Pressure 124/66 124/66 132/92 H Pulse Oximetry 96 96 91 Oxygen Delivery Method Oxygen Flow Rate 0 4 4 Fraction of Inspired Oxygen 04/25/22 16:32 Temperature Pulse Rate 72 Respiratory Rate Blood Pressure 137/65 Pulse Oximetry Oxygen Delivery Method Oxygen Flow Rate Fraction of Inspired Oxygen Fraction of Inspired Oxygen 28 SaO2/FiO2 Ratio 332 Oxygen Delivery Method Nasal Cannula Oxygen Flow Rate 4 Objective Labs Result Diagrams: 04/25/22 06:47 04/25/22 06:47 Labs: Laboratory Results - last 24 hr 04/24/22 04/24/22 04/24/22 05:50 14:12 15:56 WBC RBC Hgb Hct MCV MCH MCHC RDW Plt Count Neut % (Auto) Lymph % (Auto) [place] % (Auto) Eos % (Auto) Baso % (Auto) Neut # (Auto) Lymph # (Auto) [place] # (Auto) Eos # (Auto) Baso # (Auto) Sodium Potassium Chloride Carbon Dioxide BUN Creatinine Estimated GFR BUN/Creatinine Ratio Glucose Calcium Procalcitonin 0.06 Urine RBC None seen Urine WBC None seen Urine Bacteria None seen Hyaline Casts 0-1/lpf Urine Mucus 1+ H Ur Culture Indicated? Cult not indicated Nasal Screen MRSA (PCR) Negative for mrsa 04/25/22 04/25/22 06:47 06:47 WBC 8.1 D RBC 3.88 L Hgb 11.7 L Hct 34.8 L MCV 89.8 MCH 30.1 MCHC 33.5 RDW 19.3 H Plt Count 196 Neut % (Auto) 79.3 H Lymph % (Auto) 8.7 L [place] % (Auto) 10.9 Eos % (Auto) 0.7 L Baso % (Auto) 0.4 Neut # (Auto) 6400 Lymph # (Auto) 700 L [place] # (Auto) 900 Eos # (Auto) 100 Baso # (Auto) 0 Sodium 139 Potassium 3.9 Chloride 104 Carbon Dioxide 29 BUN 12 Creatinine 0.84 Estimated GFR > 60 BUN/Creatinine Ratio 14.3 Glucose 102 Calcium 8.5 Procalcitonin Urine RBC Urine WBC Urine Bacteria Hyaline Casts Urine Mucus Ur Culture Indicated? 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
[2022-04-25] MEDS: DOCUSATE 100 MG CAPSULE PO (20:13)
[2022-04-25] MEDS: TAMSULOSIN 0.4 MG CAPSULE PO (20:13)
[2022-04-26 00:19] VITALS: BP 117/58; PULSE 71; RESP 18; TEMP 36.2; O2SAT 96
[2022-04-26] MEDS: SODIUM CHLORIDE 0.9% 1,000 ML 42 ML IV (02:47)
[2022-04-26] MEDS: CEFAZOLIN 2 GM/100 ML PREMIX 100 ML IV (03:24)
[2022-04-26] MEDS: ACETAMINOPHEN 325 MG TABLET 650 MG PO ×2 (03:24→14:45)
[2022-04-26 06:00] VITALS: BP 116/64; PULSE 86; RESP 18; O2SAT 98
--- NOTE | 2022-04-26 08:30 | PM.PNPO.1 ---
Subjective Subjective Date Patient Seen: 04/26/22 Time Patient Seen: 09:04 Interval history: Sitting up in bed, eating breakfast. Appears to be comfortable, but c/o right leg pain. Discussed w/ pt that PT would be working with him today and he refused, saying he does not want to be moved. Exam Vital Signs (past 8 hours): - 04/26/22 06:00 Pulse Rate 86 Respiratory Rate 18 Blood Pressure 116/64 Pulse Oximetry 98 Oxygen Flow Rate 4 Fraction of Inspired Oxygen 28 SaO2/FiO2 Ratio 332 Oxygen Delivery Method Nasal Cannula Oxygen Flow Rate 4 Narrative Exam Narrative: Pt c/o hip pain w/ DF and PF of the ankle. Refuses to move at the knee or hip due to pain. Superior dressing placed intraoperatively has some bloody drainage. 2nd toe is ecchymotic but warm and pt able to move all toes. 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 Work with physical therapy and occupational therapy.? Discharge by primary team. ? Monitor hemoglobin and hematocrit postoperatively may require transfusion if needed.? Encourage incentive spirometry.? SCDs and Lovenox for DVT prophylaxis.? Recommend Lovenox through 05/23/2022. Follow-up [facility] between May 09 and for wound check, staple removed and repeat x-rays.? Keep dressing clean dry and intact; may change if saturated. (2) Toe fracture, right: Assessment and Plan narrative: X-ray of right 2nd toe demonstrated fracture 2nd toe middle phalanx without significant displacement.? Appropriate for non operative treatment.? May weight bear in a regular shoe or if significant pain then a postoperative shoe or any hard sole shoe would be reasonable.? If packing machine tender can delroy tape to the 3rd digit. Postoperative Procedures: Procedures Operation Date: 04/25/22 11:30 Actual Procedure Side Surgeon p Intramedullary Nailing Femur Right Shobha Craven MD Postoperative day: 1
[2022-04-26 08:45] LABS: Add Manual Diff / Slide Review NO; Basophils Absolute Auto 0 /uL (0-100); Basophils Percent Auto 0.1 % (0-2); Eosinophils Absolute Auto 0 /uL (0-450); Hematocrit 31.7 % (41-53); Hemoglobin 10.4 g/dL (13.5-17.5); Lymphocytes Absolute Auto 600 /uL (1100-4500); Lymphocytes Percent Auto 4.5 % (25-40); Mean Corpuscular HGB Conc 32.7 % (30-36); Mean Corpuscular Hemoglobin 29.9 PG (26-34); Mean Corpuscular Volume 91.4 fL (80-100); Monocytes Absolute Auto 1000 /uL (0-900); Monocytes Percent Auto 6.9 % (3-14); Neutrophils Absolute Auto 12500 /uL (1500-7000); Neutrophils Percent Auto 88.5 % (50-75); Platelet Count 175 X10^3/uL (150-400); Red Blood Cell Count 3.47 X10^6/uL (4.5-5.9); Red Cell Distribution Width 19.8 % (11.6-14.8); White Blood Cell Count 14.1 X10^3/uL (4.5-11.0)
[2022-04-26 08:55] LABS: BUN Creatinine Ratio 19.2 (6-22); Blood Urea Nitrogen 19 mg/dL (9-20); Calcium 8.3 mg/dL (8.4-10.2); Carbon Dioxide 29 mmol/L (22-32); Chloride 101 mmol/L (98-107); Estimated Glomerular Filt Rate > 60 mL/min (>60); Glucose 121 mg/dL (80-110); HEMOLYSIS < 15 (0-50); Sodium 135 mmol/L (137-145)
[2022-04-26 10:00] VITALS: BP 123/67; PULSE 63; RESP 22; TEMP 36.2; O2SAT 95
[2022-04-26] MEDS: atenoloL 50 MG TABLET PO ×2 (10:00→21:57)
[2022-04-26] MEDS: DULOXETINE 20 MG CAPSULE PO (10:00)
[2022-04-26] MEDS: POTASSIUM CHLORIDE 20 MEQ TAB PO (10:00)
[2022-04-26] MEDS: GABAPENTIN 300 MG CAPSULE PO ×3 (10:00→21:57)
[2022-04-26] MEDS: AMLODIPINE 5 MG TABLET 10 MG PO (10:00)
[2022-04-26] MEDS: ENOXAPARIN 40 MG/0.4 ML SYRINGE SUBCUT (10:00)
[2022-04-26] MEDS: DOCUSATE 100 MG CAPSULE PO ×2 (10:00→21:57)
[2022-04-26] MEDS: PANTOPRAZOLE DR 40 MG TABLET PO ×2 (10:00→21:58)
--- NOTE | 2022-04-26 11:12 | DIET.CONS ---
Dietary Consultation Note Admission Date: 04/24/2022 17:36 Assessment: 86 y/o M admitted after a ground fall with hip and toe fx. RD consulted for low teja. Poor skin integrity noted in EMR with boil and skin maceration. Hernandez tells me he has had this wound for a long time and it is feeling much better. Daughter tells me he has had home wound care from RNs. At home, limited protein intake. Diet recall indicates mostly processed carbs for foods, ie cereal, muffins, canned corn. Recently ordered some oranges and apples for the home. Current nutrition at home not supportive of skin integrity and wound healing. Low protein and vitamin c intake. Daughter did tell me that he use to drink chocolate ensure daily. Unclear if this was the case more recently. States he sometimes has his home helpers make him eggs. He has asked that this RD speak with his daughter, Nessa, about nutrition recs. Called Nessa and let her know more about skin integrity and nutrition as discussed with Hernandez. She provided additional details on his diet and wound hx. RD had concerns for wt loss given recent wt in EMR 20kg less than wt 3 months ago. RN confirmed 112kg wt today indicating no recent/significant wt loss. Ht: 182.88 cm Wt: 112kg BMI: 33.5 Last BM: () MNA: 13 Teja Score: 13 Diet: 04/25/22 Dinner General (Regular) Diet Diet Modifications: Chocolate Ensure once per day and fruit cup with meals Nutrition Percent Meal Consumed 75% 04/26/22 09:00 Percent Meal Consumed 50% 04/25/22 18:00 Percent Meal Consumed 75% 04/25/22 18:00 Labs: RBC 3.47 X10^6/uL (4.5-5.9) L 04/26/22 08:30 Hgb 10.4 g/dL (13.5-17.5) L 04/26/22 08:30 Hct 31.7 % (41-53) L 04/26/22 08:30 Creatinine 0.99 mg/dL (0.66-1.25) 04/26/22 08:30 Lactate 1.6 mmol/L (0.7-2.1) 04/24/22 14:12 Nutrition Diagnosis: Predicted inadequate protein and vitamin c intake r/t nutrition knowledge deficit and limited food options aeb pt report and diet recall Interventions: 1. ONS daily to support protein needs for wound healing 2. Fruit cup with each meal to support vitamin c intake for skin integrity EER: 128g PRO (1.5g/kg @ BMI 25 or 85kg per malnutrition) Monitoring/Evaluations: RD f/u 3-5 days Electronically Signed by: Sharon Holland 04/26/22 11:12 Clinical Dietitian [address] [address]
[2022-04-26 12:00] VITALS: BP 116/59; PULSE 66; RESP 20; TEMP 36.4; O2SAT 95
--- NOTE | 2022-04-26 12:45 | PT.IIE ---
Current Diagnoses Fracture of unspecified part of neck of right femur, initial encounter for closed fracture (04/24/22) Unspecified fracture of right toe(s), initial encounter for closed fracture (04/24/22) Surgery Performed Operation Date: 04/25/22 11:30 Actual Procedures p Intramedullary Nailing Femur(Right) - Shobha Craven MD Surgical History (Last Reviewed 04/25/22 @ 02:08 by LUIZ Reaves-) History of ectropion repair (10/2017) Hx of surgical procedure Medical History (Last Reviewed 04/25/22 @ 02:08 by LUIZ Reaves-GUNJAN) Acquired hypothyroidism (09/16/16) Actinic keratosis Basal cell carcinoma 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) Colon polyps COVID-19 virus infection (01/24/22) CVA (cerebral vascular accident) Depression (06/29/15) Erectile dysfunction (02/12/16) Essential hypertension (06/29/15) Gout Hemorrhoids Hyperlipemia Insomnia Metabolic encephalopathy Obstructive sleep apnea Osteoarthritis Pneumonia due to COVID-19 virus Primary insomnia (09/16/16) 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 Physical Therapy Inpatient Evaluation/Re-Eval M1 PT/OT-IP Prior Functional Status Start: 04/26/22 12:42 Freq: NEEDED Status: Active Protocol: Document 04/26/22 12:30 DLM (Rec: 04/26/22 13:02 DLM [id number]) Medical Review Prior Functional Status Medical History Reviewed Yes Diet/Fluid Consistency Regular Communication WFL Mobility and Gait Ambulates with FWW Activities of Daily Living and IADL's has caregiver assist 4 days/ week for 2-4 hours at at time Prior Functional Level (Other details) he sleeps in his recliner, had home health in past per chart notes Arnaldo- he reports is his preferred name He is not able to give much information about his baseline He admits to 3 falls at home before this hospitalization Social History Household Members none Living Arrangements House Number of Floors (Floors) One Floor Number of Stairs To Enter/Railing? steps to enter but pt can not say how many Home Equipment Front Wheel Walker,Raised Toilet Seat w/Armrests Additional Social History Comment home oxygen is about 12 years ago per chart notes M2 PT-IP Current Condition Start: 04/26/22 12:42 Freq: NEEDED Status: Active Protocol: Document 04/26/22 12:30 DLM (Rec: 04/26/22 13:02 DL [id number]) Physical Therapy Current Condition Current Condition Evaluation Date 04/26/22 Treatment Diagnosis Right hip fx, ORIF, impaired mobility/gait Onset Date 04/25/22 M3 PT-IP Subjective Start: 04/26/22 12:42 Freq: NEEDED Status: Active Protocol: Document 04/26/22 12:30 DLM (Rec: 04/26/22 13:02 DL [id number]) Subjective Physical Therapy Visit Type Type Initial Evaluation Visit Start Time 11:45 Visit Stop Time 12:30 Total Visit Minutes 45 Number of CLOTHING BUSHELER Visits 0 Physical Therapy Visit Comments Patient Comments He reports his right LE is sore when it is moved Patient Goals He can not state M4 PT-IP Mobility and Gait Start: 04/26/22 12:42 Freq: NEEDED Status: Active Protocol: Document 04/26/22 12:30 DLM (Rec: 04/26/22 13:02 [facility] [id number]) PT-Transfer Assessment Comments Mobility Comments attempted supine to sit but pt refused to fully come to sitting, c/o pain moving right LE Gait Assessment Comments Gait Comments unable Stair Climbing Assessment Comments Stair Climbing Comments unable PT-Balance Assessment Comments Other Balance Tests/Deviations/Treatment unable to test : M5 PT-IP Objective Assessments Start: 04/26/22 12:42 Freq: NEEDED Status: Active Protocol: Document 04/26/22 12:30 DLM (Rec: 04/26/22 13:02 [facility] [id number]) Orientation Orientation/Cognition Level of Alertness Confusional State Orientation Name,Birthday Language Function Ability No Deficits Noted Safety Awareness Decreased Safety Awareness Memory Description Short Term Impaired,Long-Term Impaired Comments Alert and talkative, he likes to tell stories, he is slow to redirect to task at hand. He is pleasant this visit but becomes adament that he will not do more due to his right LE pain. He recognizes his Daughter who arrived during this visit. Chart states hx of dementia. Gross Range of Motion Upper Extremity ROM Assessment Within Functional Limits Lower Extremity ROM Assessment Right Impaired Impairments pain with all hip movements, tolerated some flexion but very painful to any abduction/ adduction movements, moving knee and ankle Strength Upper Extremity Strength Assessment Within Functional Limits Lower Extremity Strength Assessment Right Impaired Hip needs assist to flex hip in bed with pain Comments Strength Comments right hip area pain limits functional strength, right second toe bruised but pt denies pain at this time Coordination Assessment Gross Coordination Gross Coordination WNL Sensation Assessment Sensation Gross Sensation WNL Muscle Tone Muscle Tone WNL Yes M6 PT-IP Treatment Start: 04/26/22 12:42 Freq: NEEDED Status: Active Protocol: Document 04/26/22 12:30 DLM (Rec: 04/26/22 13:02 DLM [id number]) Physical Therapy Treatment Exercises Exercises Ankle Pumps,Heel Slides Education Education Provided Safety Other Treatments Other Treatment Performed assisted gentle ROM right LE and left, right LE very painful M7 PT-IP Assessment and Plan Start: 04/26/22 12:42 Freq: NEEDED Status: Active Protocol: Document 04/26/22 12:30 DLM (Rec: 04/26/22 13:02 DL [id number]) PT Summary Assessment and Plan Potential Rehabilitation Potential Fair Status of Condition at Evaluation Evolving Summary Impairments Pain,ROM,Strength,Balance, Cognition,Bed Mobility, Transfers,Gait,Activity Tolerance Assessment Summary Arnaldo is alert and resting in bed. He is able to open left eye but often keeps it closed. He reports decreased vision left eye. He attempted to sit up edge of bed but did not complete it with c/o right hip area pain. His confusion makes it difficult for him to understand how to work through his pain. He assisted with scooting up in bed and repositioning. He tolerated gentle ROM of LE's. Pt will need SNF rehab at discharge. Hopeful his cognition will continue to improve post-op. Anticipate his progress will be slow. He is pleasant during therapy but currently tries to avoid any pain. Goals Bed Mobility Goal Minimal Assistance,Moderate Assistance Transfer Goal Moderate Assistance,Front Wheeled Walker Gait Goal Moderate Assistance,Front Wheel Walker Gait Distance 10 feet Days to Meet Goals 7 Frequency of Treatment Frequency Of Treatment Once a Day Treatment Plan Physical Therapy Treatment Plan Bed Mobility Training,Transfer Training,Gait Training, Therapeutic Exercise,Balance Retraining,Post Op Education, Discharge Planning,Hot or Cold Pack,Neuromuscular Re-ed Precautions Other Precautions shingles, confusion Weight Bearing Status Weight Bearing Status Weight Bear as Tolerated Recommendations To Nursing Amount of Assist Needed 2 Person Assist Discharge Recommendations PT Discharge Recommendations SNF Rehab Transportation Needs at Discharge Stretcher/Ambulance
--- NOTE | 2022-04-26 13:43 | CM.DPNOTE ---
Edgar from [facility] called and said they were following this patient. When he is discharged with , he will need a new order, not a resumption order. Saranya Duong CM Assist.
--- NOTE | 2022-04-26 15:36 | CM.DANOTE ---
Initial DCP Assessment Note Pt is an 86 yo male, resident of [place], arrives after GLF at home and subsequent hip and rt 2nd toe fx (non operative) , now POD#1 from hip repair by Dr Craven PCP: Larry Roman Payer: [facility] Patient familiar to this CORE MEASURES ABSTRACTOR from prior stays. This is patient's 18th visit, per record review, in the last two years. Patient lives alone, three adult children involved peripherally. Dtr Nessa Carbone is DPOA and primary contact. Hx of APS referrals for suspicion of self neglect. Hx of [facility] upon DC from the ER 02.20.22 Patient has privately paid caregivers working throughout the week, no assist on the weekend, current hours unknown. Dtr Nessa travels with her spouse often and lives in [facility] [place] [facility]. Case management and medical staff have implored dtr to increase caregiver support at home, resources offered, no change has appeared to take place Met w/dtr this morning; reviewed DC options. Dtr familiar with the SNF options in the region and denies need to review CM IPAD w/SNF options. Dtr requests referrals to [facility], [facility], [facility], [facility] (not a preferred building w/[facility]) and [facility] in [place]. Reviewed need for facility acceptance AND [facility] authorization. Dtr states understanding Dtr states patient has a scheduled, in home assessment with Sanya Dominguez [facility] P# [phone] 05.09.22 that she hopes will qualify patient for [facility] in home care. Placed call to Sanya; he explains that he will keep patient scheduled, however, if patient discharges to a SNF, he will transfer the assessment to the designated [facility] worker for that facility. Until then, Sanya is patient's assigned [facility] CM Dtr Nessa continues to state that neither she or her siblings are able to care for patient, however, they are all scheduled to convene closer to the May 09 date CM team will plan to begin SNF search. PT recommending SNF. Attempted to contact [facility] CM today and could not get a hold of anyone. Will continue to attempt contact Patient w/dementia, compliant w/care today, post operative pain management and therapies continue LINDA Leyva Discharge Planning/Care Management CM Discharge Assessment Start: 04/26/22 15:15 Freq: Status: Active Protocol: Document 04/26/22 15:16 MCKENNA (Rec: 04/26/22 15:36 MCKENNA [id number]) Discharge Planning Assessment Assigned Orthotist Or Prosthetist LINDA Raymond DPOA/Assigned Designee Name Nessa Carbone dtr Contact Information [phone] Advance Directives? Yes Advance Directives on File Yes History Provided By Family Member,Medical Record Has Patient been admitted in last 30 No days? Prior Living Arrangements House Household Members none Type of transporation used prior to Relies on Others admit Independent with ADL's No Is patient alert and oriented? No: Dementia Needs Assistance With Bathing,Grooming,Meal Prep, Managing Medications,Home Chores / Shopping Comment sleeps in recliner Patient/Family Preference [facility] Facility Barriers to Discharge Yes Comment Patient cannot safely return at this time with the care that is currently available Discharge Plan [facility] Facility Transportation Arrangement to be determined Referrals Initiated [facility] Medicare Choice List Provided Yes SNF/HH Preference Dtr Nessa denies need to review SNF choices on the IPAD at this time. Presented [facility] choice list and dtr requests SNF referrals to [facility], [facility], [facility] and [facility]. Patient has been to [facility] , [facility] and [facility] in the past. Has Agency SNF been contacted Yes Comment Pending review
--- NOTE | 2022-04-26 16:43 | P.PN_ITS ---
Subjective Subjective Date Patient Seen: 04/26/22 Interval history: Patient without complaints today. Pain though is bad when he tries to move. No chest pain shortness of breath, palpitations, abdominal pain nausea, or vomiting. Exam Vital Signs (past 8 hours): - 04/26/22 10:00 04/26/22 12:00 Temperature 97.2 F L 97.5 F L Pulse Rate 63 66 Respiratory Rate 22 20 Blood Pressure 123/67 116/59 L Pulse Oximetry 95 95 Oxygen Flow Rate 0 0 Fraction of Inspired Oxygen 28 SaO2/FiO2 Ratio 332 Oxygen Delivery Method Nasal Cannula Oxygen Flow Rate 0 Narrative Exam Narrative: General: Patient is a disheveled poorly groomed male confused physically appears in poor health, resting calmly in no distress at this time. HEENT: Normocephalic, left eye inflamed, ? chronicity Neck is supple and symmetric, trachea is midline, Chest: Normal AP diameter and contour without kyphoscoliosis Lungs: Auscultation of all lung zeng are clear without adventitious sounds, wheezes, rhonchi, or rales. Cardio: regular rate and rhythm without murmur, rubs, or gallops Abdomen: S NT ND Musculoskeletal: no edema or joint effusions Skin: Warm significantly dry cracking especially on the bilateral upper forearms, no signs of active infection at this time. Neuro: Alert and orientated x3, no gross deficits noted of cranial nerves, falls asleep easily shortly after surgery.. Objective Labs Result Diagrams: 04/26/22 08:30 04/26/22 08:30 Labs: Laboratory Results - last 24 hr 04/26/22 04/26/22 08:30 08:30 WBC 14.1 H D RBC 3.47 L Hgb 10.4 L Hct 31.7 L MCV 91.4 MCH 29.9 MCHC 32.7 RDW 19.8 H Plt Count 175 Neut % (Auto) 88.5 H Lymph % (Auto) 4.5 L Throckmorton % (Auto) 6.9 Eos % (Auto) 0.0 L Baso % (Auto) 0.1 Neut # (Auto) 25727 H Lymph # (Auto) 600 L Throckmorton # (Auto) 1000 H Eos # (Auto) 0 Baso # (Auto) 0 Sodium 135 L Potassium 5.0 Chloride 101 Carbon Dioxide 29 BUN 19 Creatinine 0.99 Estimated GFR > 60 BUN/Creatinine Ratio 19.2 Glucose 121 H Calcium 8.3 L [facility] Medical History Acquired hypothyroidism (09/16/16) Actinic keratosis Basal cell carcinoma 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) Colon polyps COVID-19 virus infection (01/24/22) CVA (cerebral vascular accident) Depression (06/29/15) Erectile dysfunction (02/12/16) Essential hypertension (06/29/15) Gout Hemorrhoids Hyperlipemia Insomnia Metabolic encephalopathy Obstructive sleep apnea Osteoarthritis Pneumonia due to COVID-19 virus Primary insomnia (09/16/16) 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 Surgical History History of ectropion repair (10/2017) Hx of surgical procedure Family History Family/Other Unknown family medical history Social History household members: none Smoking Status: Current some day smoker alcohol intake: current Assessment & Plan Assessment & Plan narrative: ?Klever George is an 86-year-old male history of hypertension, hypothyroidism, sleep apnea, prior stroke, CHF, dementia and recent Herpes zoster ophthalmicus/keratitis/occular HTN left eye, cellulitis of left side of face presenting today after ground level fall that has resulted in a pathol ogical closed displaced fracture of the right femoral neck. 1. Ground level fall, causing pathological closed displaced fracture of the right femoral neck, acute, present on admission -s/p operative interventions 04/25. -suspect he will need SNF at discharge -continue pain control 2. Herpes Zoster Ophthalmicus, Keratitis, Occular HTN, Cellulitis of left side of face, acute on chronic, present on admission -Managed by Dr. Naga Fisher ophthalmology last office visit 04/09/2022-patient had stopped medications -swelling much improved, does not appear to have any current active infection. 3. Worsening weakness, frequent falls, deconditioning, acute on chronic, present on admission - continue PT/OT 4. Leukocytosis, acute, present on admission -likely reactive to fall, stopped zosyn. No evidence of infection currently otherwise. 5.? Chronic diastolic Congestive heart failure, present on admission - Appears euvolemic currently. -Last echo 10/2021 EF55-60% 6. Hypertension, essential, acute on chronic, present on admission -Continue amlodipine and atenolol.??Admitting blood pressure 162/72 7. Gout, chronic, present on admission -Continue allopurinol 8. Hyperlipidemia, chronic, present on admission -Presently untreated 9. Depression, acute on chronic, present on admission Continue quetiapine and duloxetine. 10. BPH, chronic, present on admission Continue tamsulosin 11. History of stroke, chronic present on admission ? Patient appears to be deteriorating. 12. Obstructive sleep apnea, chronic, present on admission ? Non compliant with CPAP. 13. dementia, chronic, present on admission Code status: DNR Surrogate decision maker: Recorded in chart as Nessa Carbone daughter LAUREN PCR: Negative DVT/VTE prophylaxis: per ortho Disposition: hopeful for SNF I have utilized all available immediate resources to obtain, update, or review the patient's current medications. I confirmed that the patient's advanced care plan is present, Code status is documented and/or surrogate decision maker is listed in the patient's medical record. Time Spent With Patient Critical Care time: I spent a total of [] minutes of critical care time on this patient's care today; this time is exclusive of procedural time.
--- NOTE | 2022-04-26 16:43 | PC.NURSE ---
Day shift Pt's medication list was confirmed with Pt's daughter/guardian, guardian stated looks good, all these are what he takes.
[2022-04-26 18:00] VITALS: BP 123/54; PULSE 71; RESP 20; TEMP 36.4; O2SAT 93
[2022-04-26] MEDS: MELATONIN 3 MG TABLET 6 MG PO (21:30)
[2022-04-26] MEDS: TAMSULOSIN 0.4 MG CAPSULE PO (21:57)
[2022-04-26 23:53] VITALS: BP 129/92; PULSE 65; RESP 17; TEMP 37; O2SAT 94
[2022-04-27] VITALS (7 sets, daily range): BP systolic 122–139; BP diastolic 52–70; PULSE 62–63; RESP 18; TEMP 36.4–37; O2SAT 92–96
[2022-04-27] MEDS: SODIUM CHLORIDE 0.9% 1,000 ML 42 ML IV (03:11)
[2022-04-27 06:37] LABS: Add Manual Diff / Slide Review NO; Basophils Absolute Auto 0 /uL (0-100); Basophils Percent Auto 0.4 % (0-2); Eosinophils Absolute Auto 0 /uL (0-450); Eosinophils Percent Auto 0.2 % (2-4); Hematocrit 32.9 % (41-53); Hemoglobin 10.8 g/dL (13.5-17.5); Lymphocytes Absolute Auto 900 /uL (1100-4500); Lymphocytes Percent Auto 8.4 % (25-40); Mean Corpuscular HGB Conc 32.7 % (30-36); Mean Corpuscular Hemoglobin 30.1 PG (26-34); Monocytes Absolute Auto 1000 /uL (0-900); Monocytes Percent Auto 8.7 % (3-14); Neutrophils Absolute Auto 9200 /uL (1500-7000); Neutrophils Percent Auto 82.3 % (50-75); Platelet Count 166 X10^3/uL (150-400); Red Blood Cell Count 3.58 X10^6/uL (4.5-5.9); Red Cell Distribution Width 19.6 % (11.6-14.8); White Blood Cell Count 11.1 X10^3/uL (4.5-11.0)
[2022-04-27 06:49] LABS: BUN Creatinine Ratio 21.2 (6-22); Blood Urea Nitrogen 18 mg/dL (9-20); Calcium 8.6 mg/dL (8.4-10.2); Carbon Dioxide 31 mmol/L (22-32); Chloride 104 mmol/L (98-107); Estimated Glomerular Filt Rate > 60 mL/min (>60); Glucose 111 mg/dL (80-110); HEMOLYSIS < 15 (0-50); Potassium 4.8 mmol/L (3.4-5.1); Sodium 136 mmol/L (137-145)
[2022-04-27] MEDS: POTASSIUM CHLORIDE 20 MEQ TAB PO (09:56)
[2022-04-27] MEDS: atenoloL 50 MG TABLET PO ×2 (09:56→20:40)
[2022-04-27] MEDS: ENOXAPARIN 40 MG/0.4 ML SYRINGE SUBCUT (09:56)
[2022-04-27] MEDS: GABAPENTIN 300 MG CAPSULE PO ×3 (09:56→20:39)
[2022-04-27] MEDS: DULOXETINE 20 MG CAPSULE PO (09:56)
[2022-04-27] MEDS: PANTOPRAZOLE DR 40 MG TABLET PO ×2 (09:56→20:39)
[2022-04-27] MEDS: AMLODIPINE 5 MG TABLET 10 MG PO (09:56)
[2022-04-27] MEDS: DOCUSATE 100 MG CAPSULE PO ×2 (09:56→20:40)
--- NOTE | 2022-04-27 11:20 | PT.IPTN ---
Current Diagnoses Fracture of unspecified part of neck of right femur, initial encounter for closed fracture (04/24/22) Unspecified fracture of right toe(s), initial encounter for closed fracture (04/24/22) Surgery Performed Operation Date: 04/25/22 11:30 Actual Procedures p Intramedullary Nailing Femur(Right) - Shobha Craven MD Physical Therapy Treatment Note M2 PT-IP Current Condition Start: 04/26/22 12:42 Freq: NEEDED Status: Active Protocol: Document 04/26/22 12:30 DLM (Rec: 04/26/22 13:02 DLM [id number]) Physical Therapy Current Condition Current Condition Evaluation Date 04/26/22 Treatment Diagnosis Right hip fx, ORIF, impaired mobility/gait Onset Date 04/25/22 M3 PT-IP Subjective Start: 04/26/22 12:42 Freq: NEEDED Status: Active Protocol: Document 04/27/22 11:05 KS (Rec: 04/27/22 13:10 KS [id number]) Subjective Physical Therapy Visit Type Type Treatment Note Visit Start Time 11:05 Visit Stop Time 11:20 Total Visit Minutes 15 Number of MANAGER UNIVERSITY Visits 1 M4 PT-IP Mobility and Gait Start: 04/26/22 12:42 Freq: NEEDED Status: Active Protocol: Document 04/27/22 11:05 KS (Rec: 04/27/22 13:10 KS [id number]) PT-Transfer Assessment Comments Mobility Comments Pt not agreeable to sitting EOB or getting OOB due to pain in RLE w/ mobility. Did agree to LE exercises in bed to promote blood flow and strengthening and completed 2x10 bilateral ankle pumps, quad sets, glute sets. Attempted SLR and heel slides - pt performed 1x10 w/ LLE but unable to complete on RLE. Wrote exercises on whiteboard and encouraged pt to perform throughout the day. Gait Assessment Comments Gait Comments unable Stair Climbing Assessment Comments Stair Climbing Comments unable PT-Balance Assessment Comments Other Balance Tests/Deviations/Treatment unable to test : M5 PT-IP Objective Assessments Start: 04/26/22 12:42 Freq: NEEDED Status: Active Protocol: Document 04/26/22 12:30 DLM (Rec: 04/26/22 13:02 DLM [id number]) Orientation Orientation/Cognition Level of Alertness Confusional State Orientation Name,Birthday Language Function Ability No Deficits Noted Safety Awareness Decreased Safety Awareness Memory Description Short Term Impaired,Detention Impaired Comments Alert and talkative, he likes to tell stories, he is slow to redirect to task at hand. He is pleasant this visit but becomes adament that he will not do more due to his right LE pain. He recognizes his Daughter who arrived during this visit. Chart states hx of dementia. Gross Range of Motion Upper Extremity ROM Assessment Within Functional Limits Lower Extremity ROM Assessment Right Impaired Impairments pain with all hip movements, tolerated some flexion but very painful to any abduction/ adduction movements, moving knee and ankle Strength Upper Extremity Strength Assessment Within Functional Limits Lower Extremity Strength Assessment Right Impaired Hip needs assist to flex hip in bed with pain Comments Strength Comments right hip area pain limits functional strength, right second toe bruised but pt denies pain at this time Coordination Assessment Gross Coordination Gross Coordination WNL Sensation Assessment Sensation Gross Sensation WNL Muscle Tone Muscle Tone WNL Yes M6 PT-IP Treatment Start: 04/26/22 12:42 Freq: NEEDED Status: Active Protocol: Document 04/27/22 11:05 WI (Rec: 04/27/22 13:10 WI [id number]) Physical Therapy Treatment Exercises Exercises Ankle Pumps,Gluteal Sets,Quad Sets,Heel Slides,Straight Leg Raises Education Education Provided Safety M7 PT-IP Assessment and Plan Start: 04/26/22 12:42 Freq: NEEDED Status: Active Protocol: Document 04/27/22 11:05 WI (Rec: 04/27/22 13:10 WI [id number]) PT Summary Assessment and Plan Potential Rehabilitation Potential Fair Summary Impairments Pain,ROM,Strength,Balance, Cognition,Bed Mobility, Transfers,Gait,Activity Tolerance Assessment Summary Arnaldo did not feel he could tolerate sitting EOB or transferring today due to high level of pain however tolerated LE exercises fairly well. Explained importance of mobility and pt stated maybe tomorrow. He will need SNF to improve functional mobility. Goals Bed Mobility Goal Minimal Assistance,Moderate Assistance Transfer Goal Moderate Assistance,Front Wheeled Walker Gait Goal Moderate Assistance,Front Wheel Walker Gait Distance 10 feet Days to Meet Goals 7 Frequency of Treatment Frequency Of Treatment Once a Day Treatment Plan Physical Therapy Treatment Plan Bed Mobility Training,Transfer Training,Gait Training, Therapeutic Exercise,Balance Retraining,Post Op Education, Discharge Planning,Hot or Cold Pack,Neuromuscular Re-ed Precautions Other Precautions shingles, confusion Weight Bearing Status Weight Bearing Status Weight Bear as Tolerated Recommendations To Nursing Amount of Assist Needed 2 Person Assist Discharge Recommendations PT Discharge Recommendations SNF Rehab Transportation Needs at Discharge Stretcher/Ambulance
--- NOTE | 2022-04-27 11:56 | P.PN_ITS ---
Subjective Subjective Date Patient Seen: 04/27/22 Interval history: Patient without complaints today. Pain though is bad when he tries to move. No chest pain shortness of breath, palpitations, abdominal pain nausea, or vomiting. Exam Vital Signs (past 8 hours): - 04/27/22 05:28 04/27/22 07:00 04/27/22 08:41 Temperature 98.6 F Pulse Rate 63 62 Respiratory Rate 18 Blood Pressure 139/70 132/63 Pulse Oximetry 93 92 Oxygen Delivery Method Nasal Cannula Oxygen Flow Rate 2 04/27/22 09:30 Temperature Pulse Rate Respiratory Rate Blood Pressure Pulse Oximetry 93 Oxygen Delivery Method Nasal Cannula Oxygen Flow Rate 2 Fraction of Inspired Oxygen 28 SaO2/FiO2 Ratio 332 Oxygen Delivery Method Nasal Cannula Oxygen Flow Rate 2 Narrative Exam Narrative: General: Patient is a disheveled poorly groomed male confused physically appears in poor health, resting calmly in no distress at this time. HEENT: Normocephalic, left eye inflamed, ? chronicity Neck is supple and symmetric, trachea is midline, Chest: Normal AP diameter and contour without kyphoscoliosis Lungs: Auscultation of all lung zeng are clear without adventitious sounds, wheezes, rhonchi, or rales. Cardio: regular rate and rhythm without murmur, rubs, or gallops Abdomen: S NT ND Musculoskeletal: no edema or joint effusions Skin: Warm significantly dry cracking especially on the bilateral upper forearms, no signs of active infection at this time. Neuro: Alert and orientated x3, no gross deficits noted of cranial nerves, falls asleep easily shortly after surgery.. Objective Labs Result Diagrams: 04/27/22 06:25 04/27/22 06:25 Labs: Laboratory Results - last 24 hr 04/27/22 04/27/22 06:25 06:25 WBC 11.1 H RBC 3.58 L Hgb 10.8 L Hct 32.9 L MCV 92.0 MCH 30.1 MCHC 32.7 RDW 19.6 H Plt Count 166 Neut % (Auto) 82.3 H Lymph % (Auto) 8.4 L [place] % (Auto) 8.7 Eos % (Auto) 0.2 L Baso % (Auto) 0.4 Neut # (Auto) 9200 H Lymph # (Auto) 900 L [place] # (Auto) 1000 H Eos # (Auto) 0 Baso # (Auto) 0 Sodium 136 L Potassium 4.8 Chloride 104 Carbon Dioxide 31 BUN 18 Creatinine 0.85 Estimated GFR > 60 BUN/Creatinine Ratio 21.2 Glucose 111 H Calcium 8.6 PFSH Medical History Acquired hypothyroidism (09/16/16) Actinic keratosis Basal cell carcinoma 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) Colon polyps COVID-19 virus infection (01/24/22) CVA (cerebral vascular accident) Depression (06/29/15) Erectile dysfunction (02/12/16) Essential hypertension (06/29/15) Gout Hemorrhoids Hyperlipemia Insomnia Metabolic encephalopathy Obstructive sleep apnea Osteoarthritis Pneumonia due to COVID-19 virus Primary insomnia (09/16/16) 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 Surgical History History of ectropion repair (10/2017) Hx of surgical procedure Family History Family/Other Unknown family medical history Social History household members: none Smoking Status: Current some day smoker alcohol intake: current Assessment & Plan Assessment & Plan narrative: ?Klever George is an 86-year-old male history of hypertension, hypothyro idism, sleep apnea, prior stroke, CHF, dementia and recent Herpes zoster ophthalmicus/keratitis/occular HTN left eye, cellulitis of left side of face presenting today after ground level fall that has resulted in a pathological closed displaced fracture of the right femoral neck. 1. Ground level fall, causing pathological closed displaced fracture of the right femoral neck, acute, present on admission -s/p operative interventions 04/25. -suspect he will need SNF at discharge, though placement likely to be difficult -continue pain control 2. Herpes Zoster Ophthalmicus, Keratitis, Occular HTN, Cellulitis of left side of face, acute on chronic, present on admission -Managed by Dr. Naga Fisher ophthalmology last office visit 04/09/2022-patient had stopped medications -swelling much improved, does not appear to have any current active infection. -can stop isolation precautions 3. Worsening weakness, frequent falls, deconditioning, acute on chronic, present on admission - continue PT/OT 4. Leukocytosis, acute, present on admission -likely reactive to fall, stopped zosyn. No evidence of infection currently otherwise. 5.? Chronic diastolic Congestive heart failure, present on admission - Appears euvolemic currently. -Last echo 10/2021 EF55-60% 6. Hypertension, essential, acute on chronic, present on admission -Continue amlodipine and atenolol.??Admitting blood pressure 162/72 7. Gout, chronic, present on admission -Continue allopurinol 8. Hyperlipidemia, chronic, present on admission -Presently untreated 9. Depression, acute on chronic, present on admission Continue quetiapine and duloxetine. 10. BPH, chronic, present on admission Continue tamsulosin 11. History of stroke, chronic present on admission ? Patient appears to be deteriorating. 12. Obstructive sleep apnea, chronic, present on admission ? Non compliant with CPAP. 13. dementia, chronic, present on admission Code status: DNR Surrogate decision maker: Recorded in chart as Nessa Carbone daughter LAUREN PCR: Negative DVT/VTE prophylaxis: per ortho Disposition: hopeful for SNF I have utilized all available immediate resources to obtain, update, or review the patient's current medications. I confirmed that the patient's advanced care plan is present, Code status is documented and/or surrogate decision maker is listed in the patient's medical record. Time Spent With Patient Critical Care time: I spent a total of [] minutes of critical care time on this patient's care today; this time is exclusive of procedural time.
--- NOTE | 2022-04-27 12:02 | PM.PNPO.1 ---
Subjective Subjective Date Patient Seen: 04/27/22 Time Patient Seen: 12:02 Interval history: Sitting up in bed comfortably, says he is feeling well today, not much pain. Exam Vital Signs (past 8 hours): - 04/27/22 05:28 04/27/22 07:00 04/27/22 08:41 Temperature 98.6 F Pulse Rate 63 62 Respiratory Rate 18 Blood Pressure 139/70 132/63 Pulse Oximetry 93 92 Oxygen Delivery Method Nasal Cannula Oxygen Flow Rate 2 04/27/22 09:30 Temperature Pulse Rate Respiratory Rate Blood Pressure Pulse Oximetry 93 Oxygen Delivery Method Nasal Cannula Oxygen Flow Rate 2 Fraction of Inspired Oxygen 28 SaO2/FiO2 Ratio 332 Oxygen Delivery Method Nasal Cannula Oxygen Flow Rate 2 Narrative Exam Narrative: 3/5 hip flexors, quadriceps, hamstrings; 5/5 DF, PF, EHL on right. Sensation to touch intact in RLE. Calves soft, compressible, nontender. Proximal gauze dressing placed intraoperatively saturated with bloody drainage; will order dressing change today. Objective Labs Result Diagrams: 04/27/22 06:25 04/27/22 06:25 Labs: Laboratory Results - last 24 hr 04/27/22 04/27/22 06:25 06:25 WBC 11.1 H RBC 3.58 L Hgb 10.8 L Hct 32.9 L MCV 92.0 MCH 30.1 MCHC 32.7 RDW 19.6 H Plt Count 166 Neut % (Auto) 82.3 H Lymph % (Auto) 8.4 L [place] % (Auto) 8.7 Eos % (Auto) 0.2 L Baso % (Auto) 0.4 Neut # (Auto) 9200 H Lymph # (Auto) 900 L [place] # (Auto) 1000 H Eos # (Auto) 0 Baso # (Auto) 0 Sodium 136 L Potassium 4.8 Chloride 104 Carbon Dioxide 31 BUN 18 Creatinine 0.85 Estimated GFR > 60 BUN/Creatinine Ratio 21.2 Glucose 111 H Calcium 8.6 PFSH Medical History Acquired hypothyroidism (09/16/16) Actinic keratosis Basal cell carcinoma 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) Colon polyps COVID-19 virus infection (01/24/22) CVA (cerebral vascular accident) Depression (06/29/15) Erectile dysfunction (02/12/16) Essential hypertension (06/29/15) Gout Hemorrhoids Hyperlipemia Insomnia Metabolic encephalopathy Obstructive sleep apnea Osteoarthritis Pneumonia due to COVID-19 virus Primary insomnia (09/16/16) 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 Work with physical therapy and occupational therapy.? Discharge by primary team. ? Monitor hemoglobin and hematocrit postoperatively may require transfusion if needed.? Encourage incentive spirometry.? SCDs and Lovenox for DVT prophylaxis.? Recommend Lovenox through 05/23/2022. Follow-up [facility] between May 09 and for wound check, staple removed and repeat x-rays.? Keep dressing clean dry and intact; may change if saturated. (2) Toe fracture, right: Assessment and Plan narrative: X-ray of right 2nd toe demonstrated fracture 2nd toe middle phalanx without significant displacement.? Appropriate for non operative treatment.? May weight bear in a regular shoe or if significant pain then a postoperative shoe or any hard sole shoe would be reasonable.? If mattress filling machine tender can delroy tape to the 3rd digit. Postoperative Procedures: Procedures Operation Date: 04/25/22 11:30 Actual Procedure Side Surgeon p Intramedullary Nailing Femur Right Shobha Craven MD Postoperative day: 2
--- NOTE | 2022-04-27 14:10 | CM.DPNOTE ---
DCP Note Faxed SNF referral to [facility], [facility], [facility], [facility], [facility] completed in anticipation of SNF JW
--- NOTE | 2022-04-27 14:38 | PC.NURSE ---
Day shift Dressing change done at 1435, Tegraderm with 4x4 sterile gauze as per MD order. Pt tolerated well, incision and [place] appear intact with no signs of infection.
[2022-04-27] MEDS: TAMSULOSIN 0.4 MG CAPSULE PO (20:39)
[2022-04-27] MEDS: MELATONIN 3 MG TABLET 6 MG PO (20:40)
[2022-04-27] MEDS: ACETAMINOPHEN 325 MG TABLET 650 MG PO (21:41)
[2022-04-28] MEDS: ACETAMINOPHEN 325 MG TABLET 650 MG PO ×2 (04:34→13:44)
[2022-04-28 04:54] VITALS: BP 128/65; PULSE 61; RESP 16; TEMP 36.4; O2SAT 95
[2022-04-28] MEDS: ENOXAPARIN 40 MG/0.4 ML SYRINGE SUBCUT (09:21)
[2022-04-28] MEDS: GABAPENTIN 300 MG CAPSULE PO ×3 (09:21→21:02)
[2022-04-28] MEDS: POTASSIUM CHLORIDE 20 MEQ TAB PO (09:21)
[2022-04-28] MEDS: DOCUSATE 100 MG CAPSULE PO ×2 (09:22→21:02)
[2022-04-28] MEDS: DULOXETINE 20 MG CAPSULE PO (09:22)
[2022-04-28] MEDS: AMLODIPINE 5 MG TABLET 10 MG PO (09:22)
[2022-04-28] MEDS: PANTOPRAZOLE DR 40 MG TABLET PO ×2 (09:22→20:59)
[2022-04-28] MEDS: atenoloL 50 MG TABLET PO ×2 (09:25→20:59)
[2022-04-28 09:49] VITALS: BP 120/60; PULSE 68; RESP 18
--- NOTE | 2022-04-28 10:20 | PM.PNPO.1 ---
Subjective Subjective Date Patient Seen: 04/28/22 Time Patient Seen: 10:26 Interval history: Lying comfortably in bed, about to start work w/ PT. Exam Vital Signs (past 8 hours): - 04/28/22 04:54 04/28/22 09:49 Temperature 97.6 F Pulse Rate 61 68 Respiratory Rate 16 18 Blood Pressure 128/65 120/60 Pulse Oximetry 95 Fraction of Inspired Oxygen 28 SaO2/FiO2 Ratio 332 Oxygen Delivery Method Nasal Cannula Oxygen Flow Rate 2 Narrative Exam Narrative: 3/5 hip flexors, quadriceps, hamstrings; 5/5 DF, PF, EHL on right.? Sensation to touch intact in RLE.? Calves soft, compressible, nontender.? Dressings changed yesterday; CDI. 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 Continue work with physical therapy and occupational therapy.? Discharge by primary team. ?SCDs and Lovenox for DVT prophylaxis.? Recommend Lovenox through 05/23/2022. Follow-up [facility] between May 09 and for wound check, staple removed and repeat x-rays.??Will sign off; please reconsult orthopedic surgery as needed with any other concerns during this admission. (2) Toe fracture, right: Assessment and Plan narrative: X-ray of right 2nd toe demonstrated fracture 2nd toe middle phalanx without significant displacement.? Appropriate for non operative treatment.? May weight bear in a regular shoe or if significant pain then a postoperative shoe or any hard sole shoe would be reasonable.? If still cleaner tube can delroy tape to the 3rd digit. Postoperative Procedures: Procedures Operation Date: 04/25/22 11:30 Actual Procedure Side Surgeon p Intramedullary Nailing Femur Right Shobha Craven MD Postoperative day: 3
--- NOTE | 2022-04-28 10:42 | PT.IPTN ---
Current Diagnoses Fracture of unspecified part of neck of right femur, initial encounter for closed fracture (04/24/22) Unspecified fracture of right toe(s), initial encounter for closed fracture (04/24/22) Surgery Performed Operation Date: 04/25/22 11:30 Actual Procedures p Intramedullary Nailing Femur(Right) - Shobha Craven MD Physical Therapy Treatment Note M2 PT-IP Current Condition Start: 04/26/22 12:42 Freq: NEEDED Status: Active Protocol: Document 04/26/22 12:30 DLM (Rec: 04/26/22 13:02 DLM [id number]) Physical Therapy Current Condition Current Condition Evaluation Date 04/26/22 Treatment Diagnosis Right hip fx, ORIF, impaired mobility/gait Onset Date 04/25/22 M3 PT-IP Subjective Start: 04/26/22 12:42 Freq: NEEDED Status: Active Protocol: Document 04/28/22 10:42 AW (Rec: 04/28/22 11:30 AW [id number]) Subjective Physical Therapy Visit Type Type Treatment Note Visit Start Time 10:10 Visit Stop Time 10:42 Total Visit Minutes 32 Number of INSOLE ROUNDER Visits 0 Physical Therapy Visit Comments Patient Comments I think I need to use the commode M4 PT-IP Mobility and Gait Start: 04/26/22 12:42 Freq: NEEDED Status: Active Protocol: Document 04/28/22 10:42 AW (Rec: 04/28/22 11:30 AW [id number]) PT-Bed Mobility Assessment Supine to Sit Supine to Sit Moderate Assistance,Maximum Assistance,1 Person Assistance ,Head of Bed Elevated,Bedrails Scooting Scooting to Edge of Bed Maximum Assistance PT-Transfer Assessment Sit to and From Stand Sit to and from Stand Moderate Assistance,Maximum Assistance,1 Person Assistance ,Use of Upper Extremities Equipment Transfer Assistive Device Gait Belt,Front Wheeled Walker Transfers Transfer Destination Chair,Bedside Commode Transfer Technique Stand Step Pivot Transfer Ability Level of Assist Maximum Assistance,1 Person Assistance,2 Person Assistance ,Use of Upper Extremities Comments Mobility Comments Pt was lying in bed as PT arrived. BP 112/48 HR 68 SpO2 91% RA. He was initially hesitant to move but agreed to attempt sitting EOB. During transition to EOB, pt began to indicate he needed to have a bowel movement. He stood mod A and used FWW to transfer to [facility] max A x 1. When finished using the commode, SHOPPING INSPECTOR arrived to assist with pericare. Pt stood max A x 1-2 and maintained standing balance with FWW and min/mod A while SHOPPING INSPECTOR cleaned pt up. He then used FWW to transfer 90 degrees to chair set up on his right side. After activity, BP 117/61 HR 64 SpO2 90% RA. Gait Assessment Comments Gait Comments Steps taken during transfers only. Pt tends to drag his LLE to minimize RLE weightbearing . Stair Climbing Assessment Comments Stair Climbing Comments unable PT-Balance Assessment Sitting Balance and Reactions Static Sitting Balance Ability Good Dynamic Sitting Balance Ability Fair Standing Balance and Reactions Static Standing Balance Ability Fair Dynamic Standing Balance Ability Poor Device Used FWW M5 PT-IP Objective Assessments Start: 04/26/22 12:42 Freq: NEEDED Status: Active Protocol: Document 04/26/22 12:30 DLM (Rec: 04/26/22 13:02 DLM [id number]) Orientation Orientation/Cognition Level of Alertness Confusional State Orientation Name,Birthday Language Function Ability No Deficits Noted Safety Awareness Decreased Safety Awareness Memory Description Short Term Impaired,Document Control Coordinator Impaired Comments Alert and talkative, he likes to tell stories, he is slow to redirect to task at hand. He is pleasant this visit but becomes adament that he will not do more due to his right LE pain. He recognizes his Daughter who arrived during this visit. Chart states hx of dementia. Gross Range of Motion Upper Extremity ROM Assessment Within Functional Limits Lower Extremity ROM Assessment Right Impaired Impairments pain with all hip movements, tolerated some flexion but very painful to any abduction/ adduction movements, moving knee and ankle Strength Upper Extremity Strength Assessment Within Functional Limits Lower Extremity Strength Assessment Right Impaired Hip needs assist to flex hip in bed with pain Comments Strength Comments right hip area pain limits functional strength, right second toe bruised but pt denies pain at this time Coordination Assessment Gross Coordination Gross Coordination WNL Sensation Assessment Sensation Gross Sensation WNL Muscle Tone Muscle Tone WNL Yes M6 PT-IP Treatment Start: 04/26/22 12:42 Freq: NEEDED Status: Active Protocol: Document 04/28/22 10:42 AW (Rec: 04/28/22 11:30 AW [id number]) Physical Therapy Treatment Education Education Provided Weight Bearing Status,Safety M7 PT-IP Assessment and Plan Start: 09/02/22 12:42 Freq: NEEDED Status: Active Protocol: Document 04/28/22 10:42 AW (Rec: 04/28/22 11:30 AW [id number]) PT Summary Assessment and Plan Potential Rehabilitation Potential Good Summary Impairments Pain,ROM,Strength,Balance, Cognition,Bed Mobility, Transfers,Gait,Activity Tolerance Progress Towards Goals Progressing Toward Goals,Slow Progress due to Pain Assessment Summary Arnaldo was motivated by need to use the commode today. He was alert and able to participate in transfers requiring mod-max A x 1-2 with FWW. He will need SNF to improve functional mobility. Goals Bed Mobility Goal Minimal Assistance,Moderate Assistance Transfer Goal Moderate Assistance,Front Wheeled Walker Gait Goal Moderate Assistance,Front Wheel Walker Gait Distance 10 feet Days to Meet Goals 7 Frequency of Treatment Frequency Of Treatment Once a Day Treatment Plan Physical Therapy Treatment Plan Bed Mobility Training,Transfer Training,Gait Training, Therapeutic Exercise,Balance Retraining,Post Op Education, Discharge Planning,Hot or Cold Pack,Neuromuscular Re-ed Other Recommendations and Next Treatment transfers, gait with chair Focus follow Precautions Other Precautions shingles, confusion Weight Bearing Status Weight Bearing Status Weight Bear as Tolerated Recommendations To Nursing Amount of Assist Needed 2 Person Assist Discharge Recommendations PT Discharge Recommendations SNF Rehab Transportation Needs at Discharge Wheelchair/Cabulance
--- NOTE | 2022-04-28 11:23 | CM.DPNOTE ---
DCP Note: Patient is POD 3 today, s/p hip surgery. Spoke with Sandrita Boss, for [facility]. Faxing over the latest PT notes for review. Multiple SNFs have been faxed referrals per Susanna's note yesterday. Kika Pérez RN/DCP
[2022-04-28 12:00] VITALS: BP 120/60; PULSE 68; RESP 18; TEMP 36.4; O2SAT 95
--- NOTE | 2022-04-28 12:36 | P.PN_ITS ---
Subjective Subjective Date Patient Seen: 04/28/22 Interval history: Patient reports improved pain control today, thinks he did well with PT but still required significant assistance. Patient asking when he can return home. Exam Vital Signs (past 8 hours): - 04/28/22 04:54 04/28/22 09:49 04/28/22 12:00 Temperature 97.6 F 97.6 F Pulse Rate 61 68 68 Respiratory Rate 16 18 18 Blood Pressure 128/65 120/60 120/60 Pulse Oximetry 95 95 Oxygen Flow Rate 0 Fraction of Inspired Oxygen 28 SaO2/FiO2 Ratio 332 Oxygen Delivery Method Nasal Cannula Oxygen Flow Rate 0 Narrative Exam Narrative: General: Patient is a disheveled poorly groomed male confused physically appears in poor health, resting calmly in no distress at this time. HEENT: Normocephalic, left eye inflamed, ? chronicity Neck is supple and symmetric, trachea is midline, Chest: Normal AP diameter and contour without kyphoscoliosis Lungs: Auscultation of all lung zeng are clear without adventitious sounds, wheezes, rhonchi, or rales. Cardio: regular rate and rhythm without murmur, rubs, or gallops Abdomen: S NT ND Musculoskeletal: no edema or joint effusions Skin: Warm significantly dry cracking especially on the bilateral upper forearms, no signs of active infection at this time. Neuro: Alert and orientated x3, no gross deficits noted of cranial nerves, falls asleep easily shortly after surgery.. 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 Surgical History History of ectropion repair (10/2017) Hx of surgical procedure Family History Family/Other Unknown family medical history Social History household members: none Smoking Status: Current some day smoker alcohol intake: current Assessment & Plan Assessment & Plan narrative: ?Klever George is an 86-year-old male history of hypertension, hypothyroidism, sleep apnea, prior stroke, CHF, dementia and recent Herpes zoster ophthalmicus/keratitis/occular HTN left eye, cellulitis of left side of face presenting today after ground level fall that has resulted in a pathological closed displaced fracture of the right femoral neck. 1. Ground level fall, causing pathological closed displaced fracture of the right femoral neck, acute, present on admission -s/p operative interventions 04/25. -suspect he will need SNF at discharge, though placement likely to be difficult -continue pain control 2. Herpes Zoster Ophthalmicus, Keratitis, Occular HTN, Cellulitis of left side of face, acute on chronic, present on admission -Managed by Dr. Naga Fisher ophthalmology last office visit 04/09/2022-patient had stopped medications -swelling much improved, does not appear to have any current active infection. -stopped isolation precautions 3. Worsening weakness, frequent falls, deconditioning, acute on chronic, present on admission - continue PT/OT 4. Leukocytosis, acute, present on admission -likely reactive to fall, stopped zosyn. No evidence of infection currently otherwise. 5.? Chronic diastolic Congestive heart failure, present on admission - Appears euvolemic currently. -Last echo 10/2021 EF55-60% 6. Hypertension, essential, acute on chronic, present on admission -Continue amlodipine and atenolol.??Admitting blood pressure 162/72 7. Gout, chronic, present on admission -Continue allopurinol 8. Hyperlipidemia, chronic, present on admission -Presently untreated 9. Depression, acute on chronic, present on admission Continue quetiapine and duloxetine. 10. BPH, chronic, present on admission Continue tamsulosin 11. History of stroke, chronic present on admission ? Patient appears to be deteriorating. 12. Obstructive sleep apnea, chronic, present on admission ? Non compliant with CPAP. 13. dementia, chronic, present on admission Code status: DNR Surrogate decision maker: Recorded in chart as Nessa Carbone daughter LAUREN PCR: Negative DVT/VTE prophylaxis: per ortho Disposition: hopeful for SNF I have utilized all available immediate resources to obtain, update, or review the patient's current medications. I confirmed that the patient's advanced care plan is present, Code status is documented and/or surrogate decision maker is listed in the patient's medical record. Time Spent With Patient Critical Care time: I spent a total of [] minutes of critical care time on this patient's care today; this time is exclusive of procedural time.
[2022-04-28] MEDS: OXYCODONE IR 10 MG TABLET PO (13:45)
--- NOTE | 2022-04-28 14:58 | CM.DPNOTE ---
Addendum entered by Mell Pérez R.N. 04/28/22 15:02: [facility] Auth # [id number] per Kp [facility]. TOYA for [facility]. AXEL Original Note: DCP Note: Patient improving with PT today. Possibly be ready for dc to SNF tomorrow or when medically cleared. Called [facility] and left message regarding possible discharge and are they ready to receive. Plan: follow up tomorrow for potential discharge. Kika Pérez RN/DCP
[2022-04-28 18:00] VITALS: TEMP 35.7
[2022-04-28] MEDS: TAMSULOSIN 0.4 MG CAPSULE PO (20:59)
[2022-04-28] MEDS: MELATONIN 3 MG TABLET 6 MG PO (21:03)
[2022-04-28 21:06] VITALS: BP 132/59; PULSE 63; RESP 17; TEMP 36.8; O2SAT 92
[2022-04-28] MEDS: SODIUM CHLORIDE 0.9% FLUSH 10 ML IV (21:12)
[2022-04-29] VITALS: BP 137/57; PULSE 66; RESP 14; O2SAT 91
[2022-04-29] MEDS: OXYCODONE IR 10 MG TABLET PO ×3 (02:44→19:27)
[2022-04-29] MEDS: ACETAMINOPHEN 325 MG TABLET 650 MG PO (04:32)
[2022-04-29 05:59] VITALS: BP 137/60; PULSE 68; RESP 14; TEMP 36.6; O2SAT 91
--- NOTE | 2022-04-29 06:19 | PC.NURSE ---
Pt AOx2. Confused on date, time, and surroundings. Stated 7-8/10 pain and requesting pain meds, RN gave 10mg oxycodone. 2 hours later, pt requesting more pain meds for eye pain, RN gave tylenol. Q2 turns occurred throughout shift. Todd removed around 0615, pt tolerated well.
[2022-04-29] MEDS: ENOXAPARIN 40 MG/0.4 ML SYRINGE SUBCUT (10:05)
[2022-04-29] MEDS: PANTOPRAZOLE DR 40 MG TABLET PO ×2 (10:05→20:45)
[2022-04-29] MEDS: DULOXETINE 20 MG CAPSULE PO (10:06)
[2022-04-29] MEDS: AMLODIPINE 5 MG TABLET 10 MG PO (10:06)
[2022-04-29] MEDS: POTASSIUM CHLORIDE 20 MEQ TAB PO (10:06)
[2022-04-29] MEDS: GABAPENTIN 300 MG CAPSULE PO ×3 (10:06→20:45)
[2022-04-29] MEDS: DOCUSATE 100 MG CAPSULE PO ×2 (10:06→20:46)
[2022-04-29] MEDS: atenoloL 50 MG TABLET PO ×2 (10:27→20:52)
--- NOTE | 2022-04-29 11:40 | PT.IPTN ---
Current Diagnoses Fracture of unspecified part of neck of right femur, initial encounter for closed fracture (04/24/22) Unspecified fracture of right toe(s), initial encounter for closed fracture (04/24/22) Surgery Performed Operation Date: 04/25/22 11:30 Actual Procedures p Intramedullary Nailing Femur(Right) - Shobha Craven MD Physical Therapy Treatment Note M2 PT-IP Current Condition Start: 04/26/22 12:42 Freq: NEEDED Status: Active Protocol: Document 04/26/22 12:30 DLM (Rec: 04/26/22 13:02 DLM [id number]) Physical Therapy Current Condition Current Condition Evaluation Date 04/26/22 Treatment Diagnosis Right hip fx, ORIF, impaired mobility/gait Onset Date 04/25/22 M3 PT-IP Subjective Start: 04/26/22 12:42 Freq: NEEDED Status: Active Protocol: Document 04/29/22 11:20 KS (Rec: 04/29/22 12:52 KS [id number]) Subjective Physical Therapy Visit Type Type Treatment Note Visit Start Time 11:20 Visit Stop Time 11:40 Total Visit Minutes 20 Number of DIRECTOR MEDICAL SURGICAL Visits 1 M4 PT-IP Mobility and Gait Start: 04/26/22 12:42 Freq: NEEDED Status: Active Protocol: Document 04/29/22 11:20 KS (Rec: 04/29/22 12:52 KS [id number]) PT-Bed Mobility Assessment Supine to Sit Supine to Sit Moderate Assistance,1 Person Assistance,Head of Bed Elevated,Bedrails Scooting Scooting to Edge of Bed Moderate Assistance PT-Transfer Assessment Sit to and From Stand Sit to and from Stand Minimal Assistance,1 Person Assistance,Use of Upper Extremities Equipment Transfer Assistive Device Gait Belt,Front Wheeled Walker Transfers Transfer Destination Chair Transfer Technique Stand Step Pivot Transfer Ability Level of Assist Minimal Assistance,Moderate Assistance,1 Person Assistance ,Use of Upper Extremities Comments Mobility Comments Pt in bed upon arrival and reporting fatigue but agreeable to get into chair for lunch. Pt required Mod A for sup<>sit and scooting EOB w/ se of raised HOB and bed rails. Pt sit<>stand w/ Min A. Was able to tolerate standing ~3 min while nursing staff changed brief and assessed pts skin. Pt began to feel fatigue from standing and performed stand step pivot to chair w/ Min A and verbal and tactile cues for FWW mgmt. Pt sat and then stood again Min A w/ FWW for placement of pillow. Pt left in chair w/ all needs in reach. Gait Assessment Gait Gait Assistance Required: Minimum Assistance,1 Person Assist Distance (Feet) 3 Able to Maintain Weight Bearing Status Yes During Gait Assistive Devices Assistive Device Gait Belt,Front Wheeled Walker Orthotic/Prosthetic Devices or Brace: No Gait Deviations General Gait Pattern Antalgic,Decreased Stride Length,Decreased Feet Clearance,Wide Based Gait Comments Gait Comments Steps taken during transfers only. Pt tends to drag his LLE to minimize RLE weightbearing . Stair Climbing Assessment Comments Stair Climbing Comments unable PT-Balance Assessment Sitting Balance and Reactions Static Sitting Balance Ability Good Dynamic Sitting Balance Ability Fair Standing Balance and Reactions Static Standing Balance Ability Fair Dynamic Standing Balance Ability Fair Device Used FWW M5 PT-IP Objective Assessments Start: 04/26/22 12:42 Freq: NEEDED Status: Active Protocol: Document 04/26/22 12:30 DLM (Rec: 04/26/22 13:02 DLM [id number]) Orientation Orientation/Cognition Level of Alertness Confusional State Orientation Name,Birthday Language Function Ability No Deficits Noted Safety Awareness Decreased Safety Awareness Memory Description Short Term Impaired,Mcfp Impaired Comments Alert and talkative, he likes to tell stories, he is slow to redirect to task at hand. He is pleasant this visit but becomes adament that he will not do more due to his right LE pain. He recognizes his Daughter who arrived during this visit. Chart states hx of dementia. Gross Range of Motion Upper Extremity ROM Assessment Within Functional Limits Lower Extremity ROM Assessment Right Impaired Impairments pain with all hip movements, tolerated some flexion but very painful to any abduction/ adduction movements, moving knee and ankle Strength Upper Extremity Strength Assessment Within Functional Limits Lower Extremity Strength Assessment Right Impaired Hip needs assist to flex hip in bed with pain Comments Strength Comments right hip area pain limits functional strength, right second toe bruised but pt denies pain at this time Coordination Assessment Gross Coordination Gross Coordination WNL Sensation Assessment Sensation Gross Sensation WNL Muscle Tone Muscle Tone WNL Yes M6 PT-IP Treatment Start: 04/26/22 12:42 Freq: NEEDED Status: Active Protocol: Document 04/29/22 11:20 KS (Rec: 04/29/22 12:52 KS [id number]) Physical Therapy Treatment Education Education Provided Weight Bearing Status,Safety M7 PT-IP Assessment and Plan Start: 04/26/22 12:42 Freq: NEEDED Status: Active Protocol: Document 04/29/22 11:20 KS (Rec: 04/29/22 12:52 KS [id number]) PT Summary Assessment and Plan Potential Rehabilitation Potential Good Summary Impairments Pain,ROM,Strength,Balance, Cognition,Bed Mobility, Transfers,Gait,Activity Tolerance Progress Towards Goals Progressing Toward Goals,Slow Progress due to Pain Assessment Summary Pt showed progress w/ mobility and transfers today overall needing less assist as compared to yesterday, but continues to require Mod A for bed mobility, Min A for sit<> stand w/ FWW and verbal and tactile cues for FWW mgmt and safety. He will need SNF to improve functional mobility. Goals Bed Mobility Goal Minimal Assistance,Moderate Assistance Transfer Goal Moderate Assistance,Front Wheeled Walker Gait Goal Moderate Assistance,Front Wheel Walker Gait Distance 10 feet Days to Meet Goals 7 Frequency of Treatment Frequency Of Treatment Once a Day Treatment Plan Physical Therapy Treatment Plan Bed Mobility Training,Transfer Training,Gait Training, Therapeutic Exercise,Balance Retraining,Post Op Education, Discharge Planning,Hot or Cold Pack,Neuromuscular Re-ed Other Recommendations and Next Treatment transfers, gait with chair Focus follow Precautions Other Precautions shingles, confusion Weight Bearing Status Weight Bearing Status Weight Bear as Tolerated Recommendations To Nursing Amount of Assist Needed 1 Person Assist Discharge Recommendations PT Discharge Recommendations SNF Rehab Transportation Needs at Discharge Wheelchair/Cabulance
[2022-04-29 12:00] VITALS: BP 149/54; PULSE 70; RESP 18; TEMP 35.9; O2SAT 93
--- NOTE | 2022-04-29 14:06 | PC.RNWOUND ---
Patient stands up with gait belt and walker for wound nurse and primary nurse to cleanse and inspect skin. Left buttock has what appears to be an opened furuncle or small burst lesion of unknown etiology, however epidermis appears completely intact with a small piece of attached dried skin/scale. No other skin issues noted. Buttocks are gently cleansed and dried and a sacral dressing is applied for protection. Patient tolerates cares well, says right hip dressing has burning to the stitches there and wonders how long this will last.
--- NOTE | 2022-04-29 14:45 | PC.NURSE ---
Wound care nurse assisted this RN to have patient stand and evaluate buttocks (see wound care nurse's assessment note). Sacral dressing applied. Patient also scratched the scab to his left arm off and was bleeding a small amount, so this RN cleansed it and applied an allevyn gentle border dressing. Patient had a large amount of urine in brief (first void since stanton removal), brief in place and urinal within reach. Chair/bed alarm for safety and continue to monitor.
--- NOTE | 2022-04-29 15:20 | PM.PN.1 ---
Subjective Subjective Date Patient Seen: 04/29/22 Interval history: Patient reports improved pain control today, thinks he did well with PT but still required significant assistance. Patient asking when he can return home. Exam Vital Signs (past 8 hours): - 04/29/22 12:00 04/29/22 08:00 Temperature 96.6 F L Pulse Rate 70 Respiratory Rate 18 Blood Pressure 149/54 H Pulse Oximetry 93 Oxygen Delivery Method Room Air Oxygen Flow Rate 0 Fraction of Inspired Oxygen 28 SaO2/FiO2 Ratio 332 Oxygen Delivery Method Room Air Oxygen Flow Rate 0 Narrative Exam Narrative: General: Patient is a disheveled poorly groomed male confused physically appears in poor health, resting calmly in no distress at this time. HEENT: Normocephalic, left eye inflamed, ? chronicity Neck is supple and symmetric, trachea is midline, Chest: Normal AP diameter and contour without kyphoscoliosis Lungs: Auscultation of all lung zeng are clear without adventitious sounds, wheezes, rhonchi, or rales. Cardio: regular rate and rhythm without murmur, rubs, or gallops Abdomen: S NT ND Musculoskeletal: no edema or joint effusions Skin: Warm significantly dry cracking especially on the bilateral upper forearms, no signs of active infection at this time. Neuro: Alert and orientated x3, no gross deficits noted of cranial nerves, falls asleep easily shortly after surgery.. Objective Labs Result Diagrams: 04/27/22 06:25 04/27/22 06:25 [facility] Medical History Acquired hypothyroidism (09/16/16) Actinic keratosis Basal cell carcinoma 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) Colon polyps COVID-19 virus infection (01/24/22) CVA (cerebral vascular accident) Depression (06/29/15) Erectile dysfunction (02/12/16) Essential hypertension (06/29/15) Gout Hemorrhoids Hyperlipemia Insomnia Metabolic encephalopathy Obstructive sleep apnea Osteoarthritis Pneumonia due to COVID-19 virus Primary insomnia (09/16/16) 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 Surgical History History of ectropion repair (10/2017) Hx of surgical procedure Family History Family/Other Unknown family medical history Social History household members: none Smoking Status: Current some day smoker alcohol intake: current Assessment & Plan Assessment & Plan narrative: ?Klever George is an 86-year-old male history of hypertension, hypothyroidism, sleep apnea, prior stroke, CHF, dementia and recent Herpes zoster ophthalmicus/keratitis/occular HTN left eye, cellulitis of left side of face presenting today after ground level fall that has resulted in a pathological closed displaced fracture of the right femoral neck. 1. Ground level fall, causing pathological closed displaced fracture of the right femoral neck, acute, present on admission -s/p operative interventions 04/25. -suspect he will need SNF at discharge, possibly has a place tomorrow. -continue pain control 2. Herpes Zoster Ophthalmicus, Keratitis, Occular HTN, Cellulitis of left side of face, acute on chronic, present on admission -Managed by Dr. Naga Fisher ophthalmology last office visit 04/09/2022-patient had stopped medications -swelling much improved, does not appear to have any current active infection. -stopped isolation precautions 3. Worsening weakness, frequent falls, deconditioning, acute on chronic, present on admission - continue PT/OT 4. Leukocytosis, acute, present on admission -likely reactive to fall, stopped zosyn. No evidence of infection currently otherwise. 5.? Chronic diastolic Congestive heart failure, present on admission - Appears euvolemic currently. -Last echo 10/2021 EF55-60% 6. Hypertension, essential, acute on chronic, present on admission -Continue amlodipine and atenolol.??Admitting blood pressure 162/72 7. Gout, chronic, present on admission -Continue allopurinol 8. Hyperlipidemia, chronic, present on admission -Presently untreated 9. Depression, acute on chronic, present on admission Continue quetiapine and duloxetine. 10. BPH, chronic, present on admission Continue tamsulosin 11. History of stroke, chronic present on admission ? Patient appears to be deteriorating. 12. Obstructive sleep apnea, chronic, present on admission ? Non compliant with CPAP. 13. dementia, chronic, present on admission Code status: DNR Surrogate decision maker: Recorded in chart as Nessa Carbone daughter LAUREN PCR: Negative DVT/VTE prophylaxis: per ortho Disposition: hopeful for SNF tomorrow. medically stable for SNF transfer. I have utilized all available immediate resources to obtain, update, or review the patient's current medications. I confirmed that the patient's advanced care plan is present, Code status is documented and/or surrogate decision maker is listed in the patient's medical record. Time Spent With Patient Critical Care time: I spent a total of [] minutes of critical care time on this patient's care today; this time is exclusive of procedural time.
--- NOTE | 2022-04-29 16:14 | CM.DPNOTE ---
Addendum entered by LINDA Marquez 04/29/22 16:29: ADD: Faxed patient's COVID vax information (triple vaxxed) to [facility] Original Note: DCP Note Shivani/ [facility] has accepted patient for admission FridayApr 30. Patient has been authorized by [facility] for SNF stay, provided patient's [place] auth [facility] Auth # [id number] and [facility] CM Sandrita Boss contact info P# [phone] Consulted TA Mccall who anticipates patient can transport by [facility]. Updated Shivani and this SENIOR INFORMATION DEVELOPER now awaiting confirmation of p/u time by [facility] w/c van Friday PASRR has been completed, COVID PCR being updated this evening Placed call to dtawais Szymanski who is very pleased, plans to be here tomorrow upon DC to drop off clothes for patient and assist in the transition from hospital to SNF. Dtawais Szymanski awaiting the call from this CM team tomorrow AM between approx [phone] that will determine when dtr arrives at Plan: DC anticipated FridayApr 30 to [facility] via cabulance Patient pleasant, calm and compliant with care today. Patient w/dementia and often will request to return home, lacking the insight into the severity of his current debility. Creative language and discussion about this DCP is useful, led mostly by patrick Szymanski w/information inserted as needed from this CM team and from nursing team LINDA Leyva
--- NOTE | 2022-04-29 16:55 | CM.DPNOTE ---
DCP Note [facility]- no JW
[2022-04-29 18:07] VITALS: BP 140/63; PULSE 65; RESP 18; TEMP 36.9; O2SAT 92
[2022-04-29] MEDS: TAMSULOSIN 0.4 MG CAPSULE PO (20:45)
[2022-04-29] MEDS: MELATONIN 3 MG TABLET 6 MG PO (20:46)
[2022-04-29 21:06] VITALS: BP 153/73; PULSE 70; RESP 18; TEMP 36.6; O2SAT 96
[2022-04-30] MEDS: OXYCODONE IR 10 MG TABLET PO (02:50)
--- NOTE | 2022-04-30 03:48 | PC.NURSE ---
Pt complaining of eye pain 7-8/10, cone marker light very frequently for eye meds and to get out of bed. Staff transferred pt to chair for about 10 minutes but pt was uncomfortable and was transferred him back to bed. During transfer pt tolerated moving well but needed lots of direction on turning and sitting. Pt in and out of sleep throughout shift. Pt Q2T needing max assist and lots of direction to boost self in bed. Pt letting staff know when needing to urinate in urinal with assistance.
[2022-04-30] MEDS: ACETAMINOPHEN 325 MG TABLET 650 MG PO (03:55)
[2022-04-30 03:59] VITALS: BP 121/58; PULSE 18; RESP 18; TEMP 36.2; O2SAT 92
[2022-04-30 05:23] LABS: COVID19 -Nasal RAPID Negative (Negative)
[2022-04-30] MEDS: AMLODIPINE 5 MG TABLET 10 MG PO (09:01)
[2022-04-30] MEDS: atenoloL 50 MG TABLET PO (09:01)
[2022-04-30] MEDS: PANTOPRAZOLE DR 40 MG TABLET PO (09:01)
[2022-04-30] MEDS: ENOXAPARIN 40 MG/0.4 ML SYRINGE SUBCUT (09:01)
[2022-04-30] MEDS: DULOXETINE 20 MG CAPSULE PO (09:01)
[2022-04-30] MEDS: DOCUSATE 100 MG CAPSULE PO (09:01)
[2022-04-30] MEDS: GABAPENTIN 300 MG CAPSULE PO (09:01)
[2022-04-30] MEDS: POTASSIUM CHLORIDE 20 MEQ TAB PO (09:01)
--- NOTE | 2022-04-30 10:57 | P.DS_ITS ---
History of Present Illness History of Present Illness Date Patient Seen: 04/30/22 Time Patient Seen: 10:30 Chief complaint: GLF Narrative: Patient progressing with physical therapy. Pain control is adequate with current medication. Needs further improvement in mobility prior to being discharged to home. Has been accepted by SNF facility. Patient ready for dis charge. Discharge Providers Provider Date of admission: 04/24/22 17:36 Discharge Date: 04/30/22 Primary care physician: Larry Roman MD Consults: 04/24/22 16:32 Consult to Orthopedic Surgery Stat Comment: Consulting Provider: Shobha Craven Reason for consultation: right hip fracture Has provider been notified: Yes 04/24/22 18:17 Consult to Driving School Instructor Routine Comment: 04/24/22 18:40 Consult to Inpatient Wound Care Nurse Routine Comment: Reason for consultation: Stage II on buttock, Scalp abrasion 04/25/22 02:34 Consult to Ophthalmology Routine Comment: Consulting Provider: Naga Fisher Reason for consultation: Continued Herpes Zoster ophthalmicus Has provider been notified: No 04/25/22 14:39 Consult to Discharge Planning Routine Comment: Consult to Physical Therapy Evaluate & Treat Comment: wbat Physician Instructions: Evaluate and Treat Consult to Respiratory Therapy Evaluate & Treat Comment: Physician Instructions: Evaluate and treat 04/25/22 16:26 Consult to Dietitian, Adult Routine Comment: Reason For Exam: low teja score Discharge provider: Ondina Costa MD Summary Hospital Course Discharge Diagnosis: Most responsible diagnosis: Right hip subcapital/intertrochanteric comminuted fracture, closed. Pre admit diagnoses: Ground level fall at home. Injury to right hip with pain right hip. Right hip subcapital/intertrochanteric comminuted fracture, closed Decreased mobility secondary to hip fracture Hypertension Hypothyroidism Obstructive sleep apnea History CVA CHF Dementia Herpes zoster ophthalmicus/keratitis/occular HTN left eye Cellulitis of left side of face Self neglect Post admit diagnoses: Increased pain postoperatively right hip Secondary diagnoses: History of right toe fracture History of olecranon bursitis of right elbow Gout with out tophus Hypercholesteremia Tinnitus of both ears history Vitamin B12 deficiency Osteoarthritis of both knees Gastrocnemius equinus of left lower extremity History of bilateral lower extremity edema History of unilateral vestibular schwannoma Previous history of sepsis Previous acute respiratory failure with hypoxia and hypercarbia History of COVID-19 infection Erectile dysfunction Benign prostatic hypertrophy Hospital Course: Klever George is an 86-year-old male history of hypertension, hypothyroidism, sleep apnea, prior stroke, CHF,? dementia and recent Herpes zoster ophthalmicus/keratitis/occular HTN left eye, cellulitis of left side of face who presented after a ground level fall sustaining injury to his right hip.? He reported to the ED he tripped and fell landed on concrete at his home.? Patient was confused and a poor historian. Upon admit exam he denied TOBIN, dizziness lightheadedness, chest pain, palpitations, shortness of breath, abdominal pain, nausea, vomiting, diarrhea, chills, fever. It was reported to the ED that he laid there for a few hours before his daughter found him.? He was complaining of right hip pain.? States he did hit his head he did not lose consciousness.? He is not on anticoagulation medication.? Was previously noted that he likely would benefit from SNF however he was refused placement. Due to the right hip fracture, Dr. Vidales orthopedic surgeon was consulted. Right hip open reduction internal fixation was completed on April 25, 2022 with a cephalomedullary nail. The patient has consistently progress postoperatively however age and his likely decreased mobility prior to his fracture, he requires further rehabilitation with a SNF. An accepting facility has been arranged the patient will be discharged. Status at Discharge Cognitive/behavioral status at discharge: at baseline, confused Functional status at discharge: uses cane/walker Overall status at discharge: patient is progressing back to baseline Time Spent with Patient Time spent: Greater than 30 minutes Exam Vital Signs (past 8 hours): - 04/30/22 03:59 Temperature 97.2 F L Pulse Rate 18 L Respiratory Rate 18 Blood Pressure 121/58 L Pulse Oximetry 92 Oxygen Flow Rate 0 Fraction of Inspired Oxygen 28 SaO2/FiO2 Ratio 332 Oxygen Delivery Method Room Air Oxygen Flow Rate 0 Narrative Exam Narrative: General:? Patient is elderly male confused physically appears in poor health, resting calmly in no distress at this time. HEENT:? Normocephalic, left eye inflamed, consistent with the herpes infection Neck is supple and symmetric, trachea is midline, Chest:? Normal AP diameter and contour without kyphoscoliosis Lungs:? Auscultation of all lung zeng are clear without adventitious sounds, wheezes, rhonchi, or rales. Cardio:? regular rate and rhythm without murmur, rubs, or gallops Abdomen:? Soft nontender bowel sounds normal. Musculoskeletal: no edema or joint effusions Skin:? Warm and dry. Neuro:? Somewhat confused. Asking about his who just got to (this is delusional). Objective Labs Result Diagrams: 04/27/22 06:25 04/27/22 06:25 Labs: Laboratory Results - last 24 hr 04/30/22 05:00 SARS-CoV-2 (PCR) Negative [facility] Medical History Acquired hypothyroidism (09/16/16) Actinic keratosis Basal cell carcinoma 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) Colon polyps COVID-19 virus infection (01/24/22) CVA (cerebral vascular accident) Depression (06/29/15) Erectile dysfunction (02/12/16) Essential hypertension (06/29/15) Gout Hemorrhoids Hyperlipemia Insomnia Metabolic encephalopathy Obstructive sleep apnea Osteoarthritis Pneumonia due to COVID-19 virus Primary insomnia (09/16/16) 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 Surgical History History of ectropion repair (10/2017) Hx of surgical procedure Family History Family/Other Unknown family medical history Social History household members: none Smoking Status: Current some day smoker alcohol intake: current Discharge Assessment & Plan Assessment and Plan Assessment: Ready for discharge to SNF.. Plan of Treatment: Discharge today. Discharge Plan Discharge Plan Patient Disposition: SNF Transfer to: [facility] Under care of provider: Physician at the facility. Discharge orders & Medications Prescriptions: New acetaminophen 325 mg Tablet 650 mg PO Q6HR PRN (Reason: Fever/Mild Pain (1-3)) Qty: 30 0RF docusate sodium 100 mg Capsule 100 mg PO BID Qty: 60 0RF oxycodone 10 mg Tablet 10 mg PO Q4HR PRN (Reason: Pain, Severe (7-10)) Qty: 30 0RF Continued pantoprazole 40 mg tablet,delayed release (DR/EC) 40 mg PO BID Qty: 180 3RF Label Comments: 40 mg PO BID tamsulosin 0.4 mg capsule 0.4 mg PO BEDTIME Qty: 90 3RF atenolol 50 mg tablet 50 mg PO BID Qty: 180 1RF allopurinol 100 mg tablet 100 mg PO DAILY Qty: 90 1RF duloxetine 20 mg capsule,delayed release(DR/EC) 20 mg PO DAILY Qty: 90 4RF potassium chloride 20 mEq tablet extended release 20 meq PO DAILY Qty: 90 4RF amlodipine 10 mg tablet 10 mg PO DAILY Qty: 90 3RF gabapentin 300 mg capsule 300 mg PO TID Qty: 90 5RF cholecalciferol (vitamin D3) [Vitamin D3] 50 mcg (2,000 unit) Capsule 2,000 unit PO DAILY melatonin 5 mg Tablet 5 mg PO BEDTIME Saccharomyces boulardii [Florastor] 250 mg Capsule 250 mg PO DAILY acetaminophen 325 mg Tablet 650 mg PO Q6H PRN (Reason: pain) Qty: 30 0RF Follow up/Referrals: Larry Roman MD [Primary Care Provider] - Diet/Activity/Treatments Diet: Diet as Tolerated Diet comment: Supplement with 1 chocolate Ensure per day and 1 fruit cup per day Activity: Physical therapy due to assess for increasing mobility. Discharge Data Primary Care Provider: Larry Roman
--- NOTE | 2022-04-30 11:21 | PT.IPTN ---
Current Diagnoses Fracture of unspecified part of neck of right femur, initial encounter for closed fracture (04/24/22) Unspecified fracture of right toe(s), initial encounter for closed fracture (04/24/22) Surgery Performed Operation Date: 04/25/22 11:30 Actual Procedures p Intramedullary Nailing Femur(Right) - Shobha Craven MD Physical Therapy Treatment Note M2 PT-IP Current Condition Start: 04/26/22 12:42 Freq: NEEDED Status: Active Protocol: Document 04/26/22 12:30 DLM (Rec: 04/26/22 13:02 DLM [id number]) Physical Therapy Current Condition Current Condition Evaluation Date 04/26/22 Treatment Diagnosis Right hip fx, ORIF, impaired mobility/gait Onset Date 04/25/22 M3 PT-IP Subjective Start: 04/26/22 12:42 Freq: NEEDED Status: Active Protocol: Document 04/30/22 11:11 KS (Rec: 04/30/22 11:39 KS [id number]) Subjective Physical Therapy Visit Type Type Treatment Note Visit Start Time 11:11 Visit Stop Time 11:21 Total Visit Minutes 10 Number of [employer]GSHEAD OPENER Visits 2 Physical Therapy Visit Comments Patient Comments Pt wants to transfer to chair. M4 PT-IP Mobility and Gait Start: 04/26/22 12:42 Freq: NEEDED Status: Active Protocol: Document 04/30/22 11:11 KS (Rec: 04/30/22 11:39 KS [id number]) PT-Bed Mobility Assessment Supine to Sit Supine to Sit Minimal Assistance,1 Person Assistance,Head of Bed Elevated,Bedrails Scooting Scooting to Edge of Bed Moderate Assistance PT-Transfer Assessment Sit to and From Stand Sit to and from Stand Minimal Assistance,1 Person Assistance,Use of Upper Extremities Equipment Transfer Assistive Device Gait Belt,Front Wheeled Walker Transfers Transfer Destination Chair Transfer Technique Stand Step Pivot Transfer Ability Level of Assist Minimal Assistance,Moderate Assistance,1 Person Assistance ,Use of Upper Extremities Comments Mobility Comments Pt in bed upon arrival and requested to sit in chair. Min A for sup<>sit w/ HOB full elevated and Mod A for scooting EOB. Pt able to sit<> stand Min A from slightly raised bed w/ FWW and ambulated ~3 ft to chair Min A for FWW mgmt and safety cues for backing up to chair fully. Pt left reclined in chair w/ all needs in reach anticipating p/u for SNF. Gait Assessment Gait Gait Assistance Required: Minimum Assistance,1 Person Assist Distance (Feet) 3 Able to Maintain Weight Bearing Status Yes During Gait Assistive Devices Assistive Device Gait Belt,Front Wheeled Walker Orthotic/Prosthetic Devices or Brace: No Gait Deviations General Gait Pattern Antalgic,Decreased Stride Length,Decreased Feet Clearance,Wide Based Gait Factors Limiting Gait Function Factors Limiting Gait Function Decreased Activity Tolerance, Decreased Strength,Pain,Poor Balance,Poor Safety Awareness Comments Gait Comments Steps taken during transfers only. Pt tends to drag his LLE to minimize RLE weightbearing . Needs safety cues w/ FWW. PT-Balance Assessment Sitting Balance and Reactions Static Sitting Balance Ability Good Dynamic Sitting Balance Ability Fair Standing Balance and Reactions Static Standing Balance Ability Fair Dynamic Standing Balance Ability Fair Device Used FWW M5 PT-IP Objective Assessments Start: 04/26/22 12:42 Freq: NEEDED Status: Active Protocol: Document 04/26/22 12:30 DLM (Rec: 04/26/22 13:02 DLM [id number]) Orientation Orientation/Cognition Level of Alertness Confusional State Orientation Name,Birthday Language Function Ability No Deficits Noted Safety Awareness Decreased Safety Awareness Memory Description Short Term Impaired,Skilled Nursing Impaired Comments Alert and talkative, he likes to tell stories, he is slow to redirect to task at hand. He is pleasant this visit but becomes adament that he will not do more due to his right LE pain. He recognizes his Daughter who arrived during this visit. Chart states hx of dementia. Gross Range of Motion Upper Extremity ROM Assessment Within Functional Limits Lower Extremity ROM Assessment Right Impaired Impairments pain with all hip movements, tolerated some flexion but very painful to any abduction/ adduction movements, moving knee and ankle Strength Upper Extremity Strength Assessment Within Functional Limits Lower Extremity Strength Assessment Right Impaired Hip needs assist to flex hip in bed with pain Comments Strength Comments right hip area pain limits functional strength, right second toe bruised but pt denies pain at this time Coordination Assessment Gross Coordination Gross Coordination WNL Sensation Assessment Sensation Gross Sensation WNL Muscle Tone Muscle Tone WNL Yes M6 PT-IP Treatment Start: 04/26/22 12:42 Freq: NEEDED Status: Active Protocol: Document 04/30/22 11:11 KS (Rec: 04/30/22 11:39 KS [id number]) Physical Therapy Treatment Exercises Exercises Ankle Pumps Education Education Provided Weight Bearing Status,Safety M7 PT-IP Assessment and Plan Start: 04/26/22 12:42 Freq: NEEDED Status: Active Protocol: Document 04/30/22 11:11 KS (Rec: 04/30/22 11:39 KS [id number]) PT Summary Assessment and Plan Potential Rehabilitation Potential Good Summary Impairments Pain,ROM,Strength,Balance, Cognition,Bed Mobility, Transfers,Gait,Activity Tolerance Progress Towards Goals Progressing Toward Goals,Slow Progress due to Pain Assessment Summary Pt continues to be limited by low activity tolerance, but is slowly progressing w/ PT. Min A for sup<>sit, Mod A for scooting and Min A for sit<> stand and transfers. Pt needs frequent cues for safety and FWW mgmt. He will need SNF to improve functional mobility. Goals Bed Mobility Goal Minimal Assistance,Moderate Assistance Transfer Goal Moderate Assistance,Front Wheeled Walker Gait Goal Moderate Assistance,Front Wheel Walker Gait Distance 10 feet Days to Meet Goals 7 Frequency of Treatment Frequency Of Treatment Once a Day Treatment Plan Physical Therapy Treatment Plan Bed Mobility Training,Transfer Training,Gait Training, Therapeutic Exercise,Balance Retraining,Post Op Education, Discharge Planning,Hot or Cold Pack,Neuromuscular Re-ed Other Recommendations and Next Treatment transfers, gait with chair Focus follow Precautions Other Precautions shingles, confusion Weight Bearing Status Weight Bearing Status Weight Bear as Tolerated Recommendations To Nursing Amount of Assist Needed 1 Person Assist Discharge Recommendations PT Discharge Recommendations SNF Rehab Transportation Needs at Discharge Wheelchair/Cabulance
--- NOTE | 2022-04-30 11:38 | PC.NURSE ---
Attempted to call report to [facility]-no answer-left message.
[2022-04-30 12:00] VITALS: BP 120/52; PULSE 65; RESP 17; TEMP 36.1; O2SAT 95
--- NOTE | 2022-04-30 12:17 | PC.NURSE ---
Pt is packed up and ready for discharge to [facility]. Called report to Raymond CHAPPELL and gave full Pt status. TA Andrade denied further questions and was taken out via w/c by Facility Personnel with all belongings.
--- NOTE | 2022-04-30 13:46 | CM.DPC ---
DCP/continued: Reviewed chart. Per provider patient medically stable for d/c to SNF today. Patient has been accepted at [facility]. SUSTAINABILITY EXECUTIVE DIRECTOR asked CNORAD/Saranya to finalize d/c. RN/Keyonna given number to call nursing report. Patient scheduled to be picked up around noon by [facility] [place]. [facility] TATYANA
== END 2022-04-30 12:21 | DRG 481 ==
LOC: ED 15:44 → AC 17:41
PROVIDERS: Internal Medicine; Nurse Practitioner Family; Orthopaedic Surgery Foot and Ankle Surgery; Admitting Provider Student in an Organized Health Care Education/Training Program; Emergency Provider Emergency Medicine; Family Provider Student in an Organized Health Care Education/Training Program; PCP Student in an Organized Health Care Education/Training Program; Referring Provider Emergency Medicine; Visit Provider Student in an Organized Health Care Education/Training Program
PROC: 0QS636Z Reposition Right Upper Femur with Intramedullary Internal Fixation Device, Percutaneous Approach (ICD-10-PCS; CPT 27245; principal; 2022-04-25 11:30)
DX: M84.451A Pathological fracture, right femur, initial encounter for fracture (principal); I50.32 Chronic diastolic (congestive) heart failure; L03.211 Cellulitis of face; B02.30 Zoster ocular disease, unspecified; B02.33 Zoster keratitis; I11.0 Hypertensive heart disease with heart failure; S92.534A Nondisplaced fracture of distal phalanx of right lesser toe(s), initial encounter for closed fracture; F17.210 Nicotine dependence, cigarettes, uncomplicated; M1A.9XX0 Chronic gout, unspecified, without tophus (tophi); F32.A Depression, unspecified; N40.0 Benign prostatic hyperplasia without lower urinary tract symptoms; F03.90 Unspecified dementia, unspecified severity, without behavioral disturbance, psychotic disturbance, mood disturbance, and anxiety; W18.30XA Fall on same level, unspecified, initial encounter; Z91.81 History of falling; Z66 Do not resuscitate; Z20.822 Contact with and (suspected) exposure to COVID-19
CPT/HCPCS: 36415; 70450; 71045; 72125; 72192; 73502; 73503; 73660; 76000; 80048; 80053; 81001; 82550; 83605; 83690; 84145; 84484; 85025; 87040; 87635; 87797; 93005; 94760; 94762; 96374; 96375; 96376; 97110; 97162; 97530; 99284; C9803; J0690; J1100; J1170; J1650; J2270; J2405; J2543; J2704; J3010

== ENCOUNTER 2022-05-31 16:53 | Observation (INO) | payer OTHER, MEDICAID, SELFPAY ==
[2022-02-06 11:19] VITALS: PULSE 60; RESP 23; O2SAT 99
[2022-04-25 14:40] VITALS: BMI 27.1
[2022-05-31] VITALS (8 sets, daily range): BP systolic 132–164; BP diastolic 60–77; PULSE 71–77; RESP 18–20; TEMP 36.9–37; O2SAT 84–96; BMI 34.2
--- NOTE | 2022-05-31 17:52 | DI.RAD.S_ITS ---
PROCEDURE: XR CHEST 1V INDICATIONS: suspected sepsis TECHNIQUE: One view of the chest was acquired. COMPARISON: [facility], CR, XR CHEST 1V, 04/24/2022, 12:39. [facility], CR, XR CHEST 1V, 02/09/2022, 23:23. FINDINGS: Surgical changes and devices: None. Lungs and pleura: Diffuse hazy opacity. Possible trace pleural effusions. No pneumothorax. Mediastinum: Mediastinal contours appear unchanged. Heart size is normal. Bones and chest wall: No suspicious bony lesions. Overlying soft tissues appear unremarkable. IMPRESSION: Suspect fluid overload/CHF. Dictated by: Broderick Chahal M.D. on 05/31/2022 at 18:50 Approved by: Broderick Chahal M.D. on 05/31/2022 at 18:51
--- NOTE | 2022-05-31 18:16 | ED.RECABL ---
HPI - Recheck/Abnormal Lab/Rx General Chief Complaint: Recheck/Abnormal Lab/Rx Stated Complaint: Severe pain, MRSA Time Seen by Provider: 05/31/22 18:07 Mode of arrival: Wheelchair History of Present Illness HPI narrative: 86-year-old male smoker with history of hyperlipidemia, gout, depression, known memory issues and a relatively recent right hip surgery presents from assisted for evaluation of increasing pain and redness around the incision site and reported drainage with a recent culture demonstrating MRSA. Patient is a poor historian and reports only pain. It sounds as if this has been evolving over the past day or 2. There is report that maybe he was unable to go to the previously scheduled follow-up appointment. There is no report of systemic complaints such as fever, chills nor nausea or vomiting he has pain with palpation and range of motion. He was sent here for evaluation Related Data Home Medications Medication Instructions Recorded Confirmed cholecalciferol (vitamin D3) 50 2,000 unit PO DAILY 02/13/21 05/31/22 mcg (2,000 unit) capsule (Vitamin D3) melatonin 5 mg tablet 5 mg PO BEDTIME 11/02/21 05/31/22 Saccharomyces boulardii 250 mg 250 mg PO DAILY 02/10/22 05/31/22 capsule (Florastor) Previous Rx's Medication Instructions Recorded pantoprazole 40 mg tablet,delayed 40 mg PO BID #180 tabs 08/28/21 release allopurinol 100 mg tablet 100 mg PO DAILY #90 tabs 10/23/21 atenolol 50 mg tablet 50 mg PO BID #180 tabs 10/23/21 tamsulosin 0.4 mg capsule 0.4 mg PO BEDTIME #90 caps 10/23/21 duloxetine 20 mg capsule,delayed 20 mg PO DAILY #90 caps 02/04/22 release potassium chloride 20 mEq 20 meq PO DAILY #90 tabs 02/04/22 tablet,extended release amlodipine 10 mg tablet 10 mg PO DAILY #90 tabs 02/28/22 gabapentin 300 mg capsule 300 mg PO TID #90 caps 04/23/22 acetaminophen 325 mg tablet 650 mg PO Q6HR PRN Fever/Mild Pain 04/30/22 (1-3) #30 tabs docusate sodium 100 mg capsule 100 mg PO BID #60 caps 04/30/22 oxycodone 10 mg tablet 10 mg PO Q4HR PRN Pain, Severe 04/30/22 (7-10) #30 tabs Allergies Allergy/AdvReac Type Severity Reaction Status Date / Time No Known Drug Allergies Allergy Verified 04/24/22 12:21 Review of Systems Review of Systems Narrative: GENERAL: Denies chills, fatigue, malaise, fever, sweats. HEENT: Denies sinus pain, ear pain, sore throat, difficulty swallowing, dizziness. RESPIRATORY: Denies dyspnea, cough, wheezing, hemoptysis, sputum. CARDIOVASCULAR: Denies chest pain, palpitations, orthopnea, edema, GASTROINTESTINAL: Denies nausea, vomiting, abdominal pain, diarrhea, constipation, melena. : Denies dysuria, frequency, incontinence, hematuria, urinary retention. MUSCULOSKELETAL: See HPI SKIN: See HPI NEUROLOGIC: Denies weakness, headache, numbness, change in speech, confusion, seizures, incoordination. PSYCHIATRIC: No concerning psychosocial issues. 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 Well-developed patient, in mild distress. Pleasantly confused HEAD: Atraumatic. Normocephalic. EYES: Pupils equal round and reactive. Extraocular motions intact. No scleral icterus. No injection or drainage. ENT: Nose without bleeding, purulent drainage. Throat without erythema, tonsillar hypertrophy or exudate. Airway patent. NECK: Trachea midline. Non tender CARDIOVASCULAR: Regular rate and rhythm without murmurs, gallops, or rubs. RESPIRATORY: Clear to auscultation. Breath sounds equal bilaterally. No wheezes, rales, or rhonchi. GASTROINTESTINAL: Abdomen soft, non-tender, nondistended. EXTREMITIES: Decreased range of motion of right hip secondary to pain. The incision has surrounding erythema, tenderness minimal induration and some wound dehiscence BACK: Nontender without deformity or crepitance. No flank tenderness. NEURO: CN II-XII grossly in tact SKIN: No rash or erythema of visible areas Initial Vital Signs Initial Vital Signs: Vital Signs Temperature 98.4 F 05/31/22 17:22 Pulse Rate 71 05/31/22 17:22 Respiratory Rate 18 05/31/22 17:22 Blood Pressure 132/60 05/31/22 17:22 Pulse Oximetry 93 05/31/22 17:22 Oxygen Delivery Method 05/31/22 17:22 Course Orders Ordered: ED Orders 05/31/22 17:52 XR chest 1V Stat RT Consult Eval and Treat NOW 05/31/22 18:10 Blood Culture Stat COVID19 -Nasal RAPID/Pre-Proc Stat CRP [C-Reactive Protein Quant] Stat Complete Blood Count AUTO DIFF Stat Comprehensive Metabolic Panel Stat ESR [Erythrocyte Sedimentation Rate] Stat Lactate (Lactic Acid) Stat Lipase Stat Partial Thromboplastin Time Stat Procalcitonin Stat Prothrombin Time INR Stat 05/31/22 18:30 EKG-12 Lead Stat 05/31/22 18:41 XR hip w pel if done RT 2V Stat 05/31/22 20:07 Wound Culture and Gram Stain Stat Acetaminophen (Acetaminophen 325 Mg Tablet) 650 mg PO Q6HR PRN PRN Reason: Fever/Mild Pain (1-3) Last Admin: 05/31/22 22:06 Dose: 650 mg Documented By: [facility] Docusate Sodium (Docusate 100 Mg Capsule) 100 mg PO BID BHAVIN Last Admin: 05/31/22 22:07 Dose: 100 mg Documented By: ERLIN Lactated Ringer's (Lactated Ringers) 1,000 mls @ 100 mls/hr IV CONT [facility] Last Admin: 05/31/22 21:35 Dose: 100 mls/hr Documented By: ERLIN Vancomycin HCl/Dextrose (Vancomycin) 2,000 mg in 400 mls @ 200 mls/hr IV NOW ONE Stop: 06/01/22 00:29 Last Admin: 05/31/22 22:34 Dose: 200 mls/hr Documented By: ERLIN Vancomycin HCl/Dextrose (Vancomycin) 1,500 mg in 300 mls @ 200 mls/hr IV Q24H [facility] Morphine Sulfate (Morphine 2 Mg/Ml Inj) 2 mg IV Q3H PRN PRN Reason: Pain, Severe (7-10) Naloxone HCl (Naloxone 0.4 Mg/Ml Vial) 0.1 mg IV Q2MIN PRN PRN Reason: Opiate Reversal Non-Formulary Medication (Melatonin) 5 mg PO BEDTIME [facility] Last Admin: 05/31/22 22:30 Dose: Not Given Documented By: ERLIN Ondansetron HCl (Ondansetron 4 Mg/2 Ml Inj) 4 mg IV Q6HR PRN PRN Reason: Nausea And Vomiting Oxycodone HCl (Oxycodone Ir 10 Mg Tablet) 10 mg PO Q4HR PRN PRN Reason: Pain, Severe (7-10) Last Admin: 06/01/22 00:03 Dose: 10 mg Documented By: ERLIN Pantoprazole Sodium (Pantoprazole Dr 40 Mg Tablet) 40 mg PO BID [facility] Last Admin: 05/31/22 22:08 Dose: 40 mg Documented By: ERLIN Sennosides (Sennosides 8.6 Mg Tablet) 17.2 mg PO BEDTIME [facility] Last Admin: 05/31/22 22:07 Dose: 17.2 mg Documented By: ERLIN Tamsulosin HCl (Tamsulosin 0.4 Mg Capsule) 0.4 mg PO BEDTIME [facility] Last Admin: 05/31/22 22:06 Dose: 0.4 mg Documented By: ERLIN Vancomycin HCl (Vancomycin Per Pharmacy) 1 request MISC NOW ONE Stop: 05/31/22 21:59 Discontinued Medications Vancomycin HCl/Dextrose (Vancomycin) 1,500 mg in 300 mls @ 200 mls/hr IV NOW ONE Stop: 05/31/22 21:38 Vancomycin HCl/Dextrose (Vancomycin) 1,500 mg in 300 mls @ 200 mls/hr IV NOW ONE Stop: 05/31/22 23:27 Consultations Consultation #1: Discussed with patient's orthopedist (Dr. Craven), we have reviewed the history and physical exam as well as labs and imaging. She requests sutures be removed (which is done) antibiotics, admission to hospitalist, NPO after midnight and she will see patient in the morning and decide about OR versus ongoing antibiotics. Consultation #2: Hospitalist happy to accept Vital Signs Vital signs: Vital Signs - 8 hr 05/31/22 17:22 05/31/22 18:30 05/31/22 18:32 Temperature 98.4 F Pulse Rate 71 75 Respiratory Rate 18 Blood Pressure 132/60 134/60 Pulse Oximetry 93 94 Oxygen Delivery Method Room Air 05/31/22 18:32 05/31/22 19:11 05/31/22 19:11 Temperature Pulse Rate 77 77 Respiratory Rate Blood Pressure 164/75 H Pulse Oximetry 92 84 L Oxygen Delivery Method 05/31/22 19:39 05/31/22 20:00 Temperature Pulse Rate 75 73 Respiratory Rate Blood Pressure Pulse Oximetry 93 Oxygen Delivery Method MDM - Recheck/Abnormal Lab/Rx Lab Data Result diagrams: 05/31/22 18:10 05/31/22 18:10 Labs: Lab Results 05/31/22 05/31/22 05/31/22 Range/Units 18:10 18:10 18:10 WBC 5.8 (4.5-11.0) X10^3/uL RBC 3.54 L (4.5-5.9) X10^6/uL Hgb 10.5 L (13.5-17.5) g/dL Hct 31.2 L (41-53) % MCV 88.0 (80-100) fL MCH 29.7 (26-34) PG MCHC 33.7 (30-36) % RDW 16.4 H (11.6-14.8) % Plt Count 233 (150-400) X10^3/uL Neut % (Auto) 67.9 (50-75) % Lymph % (Auto) 15.0 L (25-40) % [place] % (Auto) 13.5 (3-14) % Eos % (Auto) 2.7 (2-4) % Baso % (Auto) 0.9 (0-2) % Neut # (Auto) 3900 (4467-0580) /uL Lymph # (Auto) 900 L (0593-8279) /uL [place] # (Auto) 800 (0-900) /uL Eos # (Auto) 200 (0-450) /uL Baso # (Auto) 100 (0-100) /uL ESR (0-15) MM/HR PT (10.1-12.7) SECONDS INR (0.9-1.3) APTT (26-36) SECONDS Sodium 134 L (137-145) mmol/L Potassium 4.4 (3.4-5.1) mmol/L Chloride 100 (98-107) mmol/L Carbon Dioxide 25 (22-32) mmol/L BUN 16 (9-20) mg/dL Creatinine 1.47 H (0.66-1.25) mg/dL Estimated GFR 46 L (>60) mL/min BUN/Creatinine Ratio 10.9 (6-22) Glucose 113 H (80-110) mg/dL Lactate 1.0 (0.7-2.1) mmol/L Calcium 8.9 (8.4-10.2) mg/dL Total Bilirubin 0.2 (0.2-1.3) mg/dL AST 21 (17-59) IU/L ALT 9 (<50) IU/L Alkaline Phosphatase 116 (38-126) U/L C-Reactive Protein (<1.0) mg/dL Total Protein 7.3 (6.3-8.2) g/dL Albumin 3.6 (3.5-5.0) g/dL Globulin 3.7 (1.7-4.1) g/dL Albumin/Globulin Ratio 1.0 (1.0-2.8) Lipase 113 (23-300) U/L Procalcitonin 0.10 (<0.5) ng/mL SARS-CoV-2 (PCR) (Negative) 05/31/22 05/31/22 05/31/22 Range/Units 18:10 18:10 18:10 WBC (4.5-11.0) X10^3/uL RBC (4.5-5.9) X10^6/uL Hgb (13.5-17.5) g/dL Hct (41-53) % MCV (80-100) fL MCH (26-34) PG MCHC (30-36) % RDW (11.6-14.8) % Plt Count (150-400) X10^3/uL Neut % (Auto) (50-75) % Lymph % (Auto) (25-40) % [place] % (Auto) (3-14) % Eos % (Auto) (2-4) % Baso % (Auto) (0-2) % Neut # (Auto) (2283-2046) /uL Lymph # (Auto) (4742-8320) /uL [place] # (Auto) (0-900) /uL Eos # (Auto) (0-450) /uL Baso # (Auto) (0-100) /uL ESR 38 H (0-15) MM/HR PT 12.3 (10.1-12.7) SECONDS INR 1.1 (0.9-1.3) APTT 31 (26-36) SECONDS Sodium (137-145) mmol/L Potassium (3.4-5.1) mmol/L Chloride (98-107) mmol/L Carbon Dioxide (22-32) mmol/L BUN (9-20) mg/dL Creatinine (0.66-1.25) mg/dL Estimated GFR (>60) mL/min BUN/Creatinine Ratio (6-22) Glucose (80-110) mg/dL Lactate (0.7-2.1) mmol/L Calcium (8.4-10.2) mg/dL Total Bilirubin (0.2-1.3) mg/dL AST (17-59) IU/L ALT (<50) IU/L Alkaline Phosphatase (38-126) U/L C-Reactive Protein 5.3 H (<1.0) mg/dL Total Protein (6.3-8.2) g/dL Albumin (3.5-5.0) g/dL Globulin (1.7-4.1) g/dL Albumin/Globulin Ratio (1.0-2.8) Lipase (23-300) U/L Procalcitonin (<0.5) ng/mL SARS-CoV-2 (PCR) (Negative) 05/31/22 Range/Units 18:10 WBC (4.5-11.0) X10^3/uL RBC (4.5-5.9) X10^6/uL Hgb (13.5-17.5) g/dL Hct (41-53) % MCV (80-100) fL MCH (26-34) PG MCHC (30-36) % RDW (11.6-14.8) % Plt Count (150-400) X10^3/uL Neut % (Auto) (50-75) % Lymph % (Auto) (25-40) % [place] % (Auto) (3-14) % Eos % (Auto) (2-4) % Baso % (Auto) (0-2) % Neut # (Auto) (3503-9560) /uL Lymph # (Auto) (6211-0895) /uL [place] # (Auto) (0-900) /uL Eos # (Auto) (0-450) /uL Baso # (Auto) (0-100) /uL ESR (0-15) MM/HR PT (10.1-12.7) SECONDS INR (0.9-1.3) APTT (26-36) SECONDS Sodium (137-145) mmol/L Potassium (3.4-5.1) mmol/L Chloride (98-107) mmol/L Carbon Dioxide (22-32) mmol/L BUN (9-20) mg/dL Creatinine (0.66-1.25) mg/dL Estimated GFR (>60) mL/min BUN/Creatinine Ratio (6-22) Glucose (80-110) mg/dL Lactate (0.7-2.1) mmol/L Calcium (8.4-10.2) mg/dL Total Bilirubin (0.2-1.3) mg/dL AST (17-59) IU/L ALT (<50) IU/L Alkaline Phosphatase (38-126) U/L C-Reactive Protein (<1.0) mg/dL Total Protein (6.3-8.2) g/dL Albumin (3.5-5.0) g/dL Globulin (1.7-4.1) g/dL Albumin/Globulin Ratio (1.0-2.8) Lipase (23-300) U/L Procalcitonin (<0.5) ng/mL SARS-CoV-2 (PCR) Negative (Negative) Imaging Data Extremity x-ray #1: Radiologist's Impression: ? Chart Viewer Diagnostics Subcategory All Activity ??:?? All Time ??:?? All Subcategories Filter Laboratory Imaging Microbiology Pathology Blood Bank Tests Cardiovascular Other Specialty DATE TYPE STATUS REF RANGE/AUTHOR Hx Today 18:41 Hip X-Ray Signed Call,Broderick Today 17:52 Chest X-Ray Signed Call,Broderick 04/25/22 14:39 Toe X-Ray Signed Eduardo Kovacs 04/25/22 13:19 Hip X-Ray Signed Manfred Lynch 04/24/22 13:[address] Signed DamonLeonaGaldino 04/24/22 12:[address] Signed Call,Broderick 04/24/22 12:28 Chest X-Ray Signed Call,Broderick 04/24/22 12:[address] Signed Call,Broderick 04/24/22 12:21 Hip X-Ray Signed Dontrell Nowak 02/11/22 11:42 Brain MRI Signed Gilson Bustamante 02/10/22 04:30 Telemetry Strips ? 02/10/22 04:29 Chest CTA Signed Dontrell Nowak 02/09/22 23:[address] Signed Raul Honeycutt 02/09/22 23:17 Chest X-Ray Signed Raul Honeycutt 02/08/22 13:[address] Signed Alberto Nash 02/08/22 12:07 Chest X-Ray Signed Call,Broderick 01/24/22 10:56 Chest X-Ray Signed Gilson Bustamante 12/24/21 12:[address] Signed Humble Franco 12/24/21 11:31 Telemetry Strips ? 12/24/21 11:31 Telemetry Strips ? 12/24/21 09:35 Chest X-Ray Signed Amy Sauer 11/02/21 11:09 Echocardiogram Ultrasound Signed Radha Aleman 11/02/21 10:13 Renal Ultrasound Signed Fawn Palma 11/02/21 08:00 Chest X-Ray Signed Narciso Haywood 11/02/21 00:09 Chest CTA Signed Eduardo Kurtz 11/01/21 22:45 Chest X-Ray Signed Eduardo Kurtz 02/14/21 03:37 Brain MRI Signed Tho Mccall 02/13/21 19:15 Telemetry Strips ? 02/13/21 15:[address] Signed Shara Malik 02/13/21 14:14 Chest X-Ray Signed Broderick Chahal 01/28/21 07:08 Chest X-Ray Signed Raul Honeycutt 01/27/21 16:57 Telemetry Strips ? 01/27/21 16:57 Telemetry Strips ? 01/27/21 15:13 Chest CTA Signed Raul Honeycutt 01/27/21 13:24 Chest X-Ray Signed Raul Honeycutt 01/02/21 17:07 Wrist X-Ray Signed Raul Honeycutt 01/01/21 22:05 Echocardiogram Ultrasound Signed Bacilio Mohamud 01/01/21 22:00 Knee X-Ray Signed Tho Mccall 01/01/21 22:00 Knee X-Ray Signed Tho Mccall 01/01/21 22:00 Ankle X-Ray Signed Tho Mccall 01/01/21 22:00 Ankle X-Ray Signed Tho Mccall 01/01/21 10:11 Vascular Ultrasound Signed Alberto Nash 01/01/21 07:58 Chest X-Ray Signed Raul Honeycutt 12/08/20 15:14 Vascular Ultrasound Signed Raul Honeycutt 12/07/20 19:53 Radiology Report Cancelled Justice Saba 12/07/20 19:53 Myocardial Perfusion Scan Nuc Med Signed Justice Saba 12/06/20 14:26 Telemetry Strips ? 12/06/20 10:21 Chest X-Ray Signed Humble Franco 11/25/20 19:51 Peripheral Vascular Ultrasound Signed Yadiel Ramírez 11/25/20 17:09 Hand X-Ray Signed Yadiel Ramírez 11/25/20 16:30 Chest X-Ray Signed Yadiel Ramírez 10/23/20 23:26 Chest X-Ray Signed Tho Mccall 10/23/20 19:[address] Signed Humble Franco 10/23/20 19:29 Chest X-Ray Signed Humble Franco 10/23/20 03:38 Abdomen/Pelvis CT Signed Eduardo Kurtz 10/23/20 02:27 Knee X-Ray Signed Eduardo Kurtz 10/23/20 02:27 Chest X-Ray Signed Eduardo Kurtz 10/23/20 02:[address] Signed Eduardo Kurtz (ELIZABETH) Klever George ED 86, M?1935 MRN#? [id number] REG ER,?Main ED??R07?? VIP Recheck/Abnormal Lab/Rx Acc#? [id number] Resus Status Not Ordered Hx Avail Special Indicators No Data to Display Home Meds Not Confirmed Prescription Monitoring Program Total 0 MME/Day Incomplete MEDICATIONS (INSTRUCTIONS) LAST TAKEN Active ??acetaminophen ??650 [id number]#30 tabs ??acetaminophen ??650 [id number]/Mild Pain (1-3)#30 tabs ??allopurinol 100 mg tablet ??100 mgPODAILY#90 tabs ??amlodipine 10 mg tablet ??10 mgPODAILY#90 tabs ??atenolol 50 mg tablet ??50 mgPOBID#180 tabs ??cholecalciferol (vitamin D3) [Vitamin D3] ??2,000 unitPODAILY ??docusate sodium ??100 mgPOBID#60 caps ??duloxetine 20 mg capsule,delayed release ??20 mgPODAILY#90 caps ??gabapentin 300 mg capsule ??300 mgPOTID#90 caps ??melatonin ??5 mgPOBEDTIME ??oxycodone ??10 [id number], Severe (7-10)#30 tabs 0 MME/Day ??pantoprazole 40 mg tablet,delayed release ??40 mgPOBID#180 tabs ??potassium chloride 20 mEq tablet,extended release ??20 meqPODAILY#90 tabs ??Saccharomyces boulardii [Florastor] ??250 mgPODAILY ??tamsulosin 0.4 mg capsule ??0.4 mgPOBEDTIME#90 caps Allergies No Known Drug Allergies Problems ? ONSET Postoperative wound infection of right hip Toe fracture, right Shingles Cellulitis Closed fracture of right hip Olecranon bursitis of right elbow Gout without tophus 06/29/15 Pure hypercholesterolemia 02/12/16 Tinnitus of both ears Vitamin B12 deficiency Memory changes Osteoarthritis of knees, bilateral Gastrocnemius equinus of left lower extremity Bilateral lower extremity edema Unilateral vestibular schwannoma Self neglect Sepsis Acute respiratory failure with hypoxia and hypercarbia COVID-19 COVID-19 virus infection Acute respiratory failure with hypoxia Irritation of left eye Obstructive sleep apnea Depression 06/29/15 Essential hypertension 06/29/15 Erectile dysfunction 02/12/16 Acquired hypothyroidism 09/16/16 Primary insomnia 09/16/16 Benign prostatic hyperplasia with weak urinary stream 07/30/17 Vital Signs Today 19:11 BP 164/75?H Pulse 77? O2 Sat 84?L Diagnostics Reports Klever George?(ELIZABETH)?(VIP)??86??M??1935 ? Allergy/Adv: No Known Drug Allergies (More??) Close Hip X-Ray (Signed) Call, - 05/31/22 Chest X-Ray (Signed) Call, - 05/31/22 Toe X-Ray (Signed) Eduardo Kovacs - 04/25/22 Hip X-Ray (Signed) Manfred Lynch - 04/25/[address] (Signed) Galdino Jose - 04/24/[address] (Signed) Call,Broderick - 04/24/22 Chest X-Ray (Signed) Call,Broderick - 04/24/[address] (Signed) Call, - 04/24/22 Hip X-Ray (Signed) Dontrell Nowak - 04/24/22 Brain MRI (Signed) Gilson Bustamante - 02/11/22 Telemetry Strips 02/10/22 Chest CTA (Signed) Dontrell Nowak - 02/10/[address] (Signed) Raul Honeycutt - 02/09/22 Chest X-Ray (Signed) Raul Honeycutt - 02/09/[address] (Signed) Alberto Nash - 02/08/22 Chest X-Ray (Signed) Call,Broderick - 02/08/22 Chest X-Ray (Signed) Gilson Bustamante - 01/24/[address] (Signed) Humble Franco - 12/24/21 Telemetry Strips 12/24/21 Telemetry Strips 12/24/21 Chest X-Ray (Signed) Amy Sauer - 12/24/21 Echocardiogram Ultrasound (Signed) Radha Aleman - 11/02/21 Renal Ultrasound (Signed) OsvaldomelisaFawn fry - 11/02/21 Chest X-Ray (Signed) Narciso Haywood - 11/02/21 Chest CTA (Signed) Eduardo Kurtz - 11/02/21 Chest X-Ray (Signed) Eduardo Kurtz - 11/01/21 Brain MRI (Signed) Tho Mccall - 02/14/21 Telemetry Strips 02/13/[address] (Signed) HelenaShara - 02/13/21 Chest X-Ray (Signed) FelaBroderick - 02/13/21 Chest X-Ray (Signed) Raul Honeycutt - 01/28/21 Telemetry Strips 01/27/21 Telemetry Strips 01/27/21 Chest CTA (Signed) Raul Honeycutt - 01/27/21 Chest X-Ray (Signed) Raul Honeycutt - 01/27/21 Wrist X-Ray (Signed) Raul Honeycutt - 01/02/21 Echocardiogram Ultrasound (Signed) Bacilio Mohamud - 01/01/21 Knee X-Ray (Signed) Tho Mccall - 01/01/21 Knee X-Ray (Signed) Tho Mccall - 01/01/21 Ankle X-Ray (Signed) Tho Mccall - 01/01/21 Ankle X-Ray (Signed) Tho Mccall - 01/01/21 Vascular Ultrasound (Signed) Alberto Nash - 01/01/21 Chest X-Ray (Signed) Raul Honeycutt - 01/01/21 Vascular Ultrasound (Signed) Raul Honeycutt - 12/08/20 Radiology Report (Cancelled) Justice Saba - 12/07/20 Myocardial Perfusion Scan Nuc Med (Signed) Justice Saba - 12/07/20 Telemetry Strips 12/06/20 Chest X-Ray (Signed) Humble Franco - 12/06/20 Peripheral Vascular Ultrasound (Signed) Yadiel Ramírez - 11/25/20 Hand X-Ray (Signed) Yadiel Ramírez - 11/25/20 Chest X-Ray (Signed) Yadiel Ramírez - 11/25/20 Chest X-Ray (Signed) Tho Mccall - 10/23/[address] (Signed) Humble Franco - 10/23/20 Chest X-Ray (Signed) Humble Franco - 10/23/20 Abdomen/Pelvis CT (Signed) Eduardo Kutrz - 10/23/20 Knee X-Ray (Signed) Eduardo Kurtz - 10/23/20 Chest X-Ray (Signed) Eduardo Kurtz - 10/23/[address] (Signed) Eduardo Kurtz - 10/23/20 Launch?Image [address] [address] XRay Report Signed Patient: Klever George MR#: [id number] : 1935 Acct:[id number] Age/Sex: 86 / M Date of Service: 05/31/22 Loc: ED Accession Number: [id number] ?? Procedure: XR hip w pel if done RT 2V Ordering Provider: Renzo Morel D.O. PROCEDURE:? XR HIP W PEL IF DONE RT 2V ? INDICATIONS:? recent surgery, request per ortho, infection? ? TECHNIQUE:? AP pelvis with lateral view(s) of the right hip(s).? ? COMPARISON:? [facility], CR, XR HIP W PEL IF DONE RT 4V, 04/25/2022, 12:01.? [facility], CR, XR HIP W PEL IF DONE RT 2V, 04/24/2022, 12:29. ? FINDINGS:? ? Bones:? Proximal femur intramedullary giovanni with screw fixation.? Hardware appears stable.? No fractures or dislocations.? Pelvic ring appears intact.? No suspicious bony lesions.? Moderate bilateral joint space narrowing.? ? Soft tissues:? The visualized bowel gas pattern is normal.? No suspicious soft tissue calcifications.? Skin staple line.? ? ? IMPRESSION:? Proximal femur intramedullary giovanni with screw fixation.? Hardware appears stable. ? ? Dictated by: Broderick Chahal M.D. on 05/31/2022 at 19:59 ? ? Approved by: Broderick Chahal M.D. on 05/31/2022 at 20:02 ? Discharge Plan Departure Patient Disposition: Admitted as Observation Clinical Impression: Postoperative wound infection of right hip Admit Date/Time: 05/31/22 20:13 Admit Provider: Shyanne Mccall
[2022-05-31 18:29] LABS: Add Manual Diff / Slide Review NO; Basophils Absolute Auto 100 /uL (0-100); Basophils Percent Auto 0.9 % (0-2); Eosinophils Absolute Auto 200 /uL (0-450); Eosinophils Percent Auto 2.7 % (2-4); Hematocrit 31.2 % (41-53); Hemoglobin 10.5 g/dL (13.5-17.5); Lymphocytes Absolute Auto 900 /uL (1100-4500); Mean Corpuscular HGB Conc 33.7 % (30-36); Mean Corpuscular Hemoglobin 29.7 PG (26-34); Monocytes Absolute Auto 800 /uL (0-900); Monocytes Percent Auto 13.5 % (3-14); Neutrophils Absolute Auto 3900 /uL (1500-7000); Neutrophils Percent Auto 67.9 % (50-75); Platelet Count 233 X10^3/uL (150-400); Red Blood Cell Count 3.54 X10^6/uL (4.5-5.9); Red Cell Distribution Width 16.4 % (11.6-14.8); White Blood Cell Count 5.8 X10^3/uL (4.5-11.0)
[2022-05-31 18:36] LABS: INR 1.1 (0.9-1.3); Prothrombin Time 12.3 SECONDS (10.1-12.7)
[2022-05-31 18:38] LABS: PTT Partial Thromboplastin Tim 31 SECONDS (26-36)
--- NOTE | 2022-05-31 18:41 | DI.RAD.S_ITS ---
PROCEDURE: XR HIP W PEL IF DONE RT 2V INDICATIONS: recent surgery, request per ortho, infection? TECHNIQUE: AP pelvis with lateral view(s) of the right hip(s). COMPARISON: [facility], CR, XR HIP W PEL IF DONE RT 4V, 04/25/2022, 12:01. [facility], CR, XR HIP W PEL IF DONE RT 2V, 04/24/2022, 12:29. FINDINGS: Bones: Proximal femur intramedullary giovanni with screw fixation. Hardware appears stable. No fractures or dislocations. Pelvic ring appears intact. No suspicious bony lesions. Moderate bilateral joint space narrowing. Soft tissues: The visualized bowel gas pattern is normal. No suspicious soft tissue calcifications. Skin staple line. IMPRESSION: Proximal femur intramedullary giovanni with screw fixation. Hardware appears stable. Dictated by: Broderick Chahal M.D. on 05/31/2022 at 19:59 Approved by: Broderick Chahal M.D. on 05/31/2022 at 20:02
[2022-05-31 18:42] LABS: COVID19 -Nasal RAPID Negative (Negative)
[2022-05-31 18:46] LABS: Alanine Aminotransferase 9 IU/L (<50); Albumin 3.6 g/dL (3.5-5.0); Alkaline Phosphatase 116 U/L (38-126); Aspartate Aminotransferase 21 IU/L (17-59); BUN Creatinine Ratio 10.9 (6-22); Bilirubin Total 0.2 mg/dL (0.2-1.3); Blood Urea Nitrogen 16 mg/dL (9-20); Calcium 8.9 mg/dL (8.4-10.2); Carbon Dioxide 25 mmol/L (22-32); Chloride 100 mmol/L (98-107); Estimated Glomerular Filt Rate 46 mL/min (>60); Globulin 3.7 g/dL (1.7-4.1); Glucose 113 mg/dL (80-110); HEMOLYSIS < 15 (0-50); Lipase 113 U/L (23-300); Potassium 4.4 mmol/L (3.4-5.1); Sodium 134 mmol/L (137-145); Total Protein 7.3 g/dL (6.3-8.2)
[2022-05-31 18:48] LABS: C-Reactive Protein Quant 5.3 mg/dL (<1.0)
[2022-05-31 18:55] LABS: Erythrocyte Sedimentation Rate 38 MM/HR (0-15)
--- NOTE | 2022-05-31 19:25 | PC.NURSE ---
Report received - assumed care of pt at this time - in radiology
--- NOTE | 2022-05-31 20:20 | PC.NURSE ---
Addendum entered by Alicia Mclean R.N. 05/31/22 20:23: Event occurred at 1954 Original Note: MD at bedside to remove charlotte from the hip - tolerated well - pt requesting to get up out of bed - states that he wants to go home and then states that he wants to get up and exercise - explained the importance of staying in bed at this time
--- NOTE | 2022-05-31 20:23 | PC.NURSE ---
Addendum entered by Alicia Mclean R.N. 05/31/22 20:25: Event at 1999 Original Note: Readjusted in bed for comfort - continues to ask to get out of bed - states that he was told he was going to go to the hospital and he is waiting for justin to happen - explained that he is at the hospital and that he is going to be admitted to the floor for the night - told he is in the ER at this time - states that he was not aware of that - asking for a drink of vodka
--- NOTE | 2022-05-31 20:26 | PC.NURSE ---
Asking for the pulse ox to be removed because he thinks it is going to blow him up - reassured it is for oxygen measurement only
--- NOTE | 2022-05-31 20:40 | PC.NURSE ---
Report called to [facility]
--- NOTE | 2022-05-31 20:51 | P.HP_ITS ---
History of Present Illness History of Present Illness Chief complaint: Severe pain, MRSA Narrative: Klever George is an 86-year-old male history of hypertension, hypothyroidism, sleep apnea, prior stroke, CHF,? mild dementia and recent Herpes zoster ophthalmicus/keratitis/occular HTN left eye, cellulitis of left side of face presenting today?from his rehab facility after having undergone a right hip ORIF on 04/25/22 and discharged on April 30. He presented with increased pain, erythema around the incision site, and drainage reported from a recent culture resulting in MRSA. I am unable to obtain a history from the patient, he keeps referring [facility]. Per the ED provider, he was contacted by Dr. Michaud, the orthopedist and the patient reportedly did not present for followup and did not have his sutures removed. Per the ED provider his exam noted some wound dehiscence. In the ED, his sutures were removed at the request of orthopedics and was requested for admission with a decision made tomorrow on continuing antibiotic treatment and/or whether to return him to the OR. X-ray of the hip indicated stable placement of hardware with a proximal femur intramedullary giovanni with screw fixation. He is afebrile, blood pressure 164/75, heart rate 75, respiratory rate 18, oxygen saturation of 94% on room air, he weighs 111.8 kg with a BMI of 27.1. His white count is within normal limits, hemoglobin and hematocrit are 10.5 and 31.2 slightly lower than his baseline, platelet count 233, ESR is elevated at 38, creatinine is 1.47 with an EGFR 46 also slightly abnormal over baseline, procalcitonin is negative and COVID-19 PCR is negative. FH: I am unable to obtain a family history from this patient. 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 Surgical History History of ectropion repair (10/2017) Hx of surgical procedure Family & Social History Family History Family/Other Unknown family medical history Family history unavailable: Yes Social History: household members none Tobacco & Substance use: Tobacco type cigarettes Smoking Status Current some day smoker alcohol intake current alcohol intake frequency 0-2 drinks per day Substance Use Type does not use Meds Home Medications and Allergies Home Medications Medication Instructions Recorded Confirmed Type cholecalciferol (vitamin D3) 50 2,000 unit PO DAILY 02/13/21 05/31/22 History mcg (2,000 unit) capsule (Vitamin D3) pantoprazole 40 mg tablet,delayed 40 mg PO BID #180 tabs 08/28/21 04/26/22 Rx release allopurinol 100 mg tablet 100 mg PO DAILY #90 tabs 10/23/21 04/26/22 Rx atenolol 50 mg tablet 50 mg PO BID #180 tabs 10/23/21 04/26/22 Rx tamsulosin 0.4 mg capsule 0.4 mg PO BEDTIME #90 caps 10/23/21 04/26/22 Rx melatonin 5 mg tablet 5 mg PO BEDTIME 11/02/21 05/31/22 History duloxetine 20 mg capsule,delayed 20 mg PO DAILY #90 caps 02/04/22 05/31/22 Rx release potassium chloride 20 mEq 20 meq PO DAILY #90 tabs 02/04/22 05/31/22 Rx tablet,extended release Saccharomyces boulardii 250 mg 250 mg PO DAILY 02/10/22 05/31/22 History capsule (Florastor) amlodipine 10 mg tablet 10 mg PO DAILY #90 tabs 02/28/22 05/31/22 Rx gabapentin 300 mg capsule 300 mg PO TID #90 caps 04/23/22 05/31/22 Rx acetaminophen 325 mg tablet 650 mg PO Q6HR PRN Fever/Mild Pain 04/30/22 05/31/22 Rx (1-3) #30 tabs docusate sodium 100 mg capsule 100 mg PO BID #60 caps 04/30/22 05/31/22 Rx oxycodone 10 mg tablet 10 mg PO Q4HR PRN Pain, Severe 04/30/22 05/31/22 Rx (7-10) #30 tabs Allergies Allergy/AdvReac Type Severity Reaction Status Date / Time No Known Drug Allergies Allergy Verified 04/24/22 12:21 Review of Systems Review of Systems ROS: Yes unobtainable due to mental status Exam Vital Signs (past 8 hours): - 05/31/22 17:22 05/31/22 18:30 05/31/22 18:32 Temperature 98.4 F Pulse Rate 71 75 Respiratory Rate 18 Blood Pressure 132/60 134/60 Pulse Oximetry 93 94 Oxygen Delivery Method Room Air 05/31/22 18:32 05/31/22 19:11 05/31/22 19:11 Temperature Pulse Rate 77 77 Respiratory Rate Blood Pressure 164/75 H Pulse Oximetry 92 84 L Oxygen Delivery Method 05/31/22 19:39 05/31/22 20:00 05/31/22 20:30 Temperature Pulse Rate 75 73 75 Respiratory Rate Blood Pressure Pulse Oximetry 93 94 Oxygen Delivery Method Oxygen Delivery Method Room Air Narrative Exam Narrative: Gen: Alert, oriented, ill appearing 86 y.o. male, slightly agitated HEENT: normocephalic, atraumatic, conjunctiva w/purulent scleral discharge, left eye, sclera non-icteric, oral mucosa pink and moist Neck: supple, full ROM, no JVD, trachea is midline Resp: Lungs CTA, non-labored breathing CV: RRR, no murmur or rubs Abd: soft, non-tender, normoactive BTs Skin: has a verticle surgical incision site distal to right hip w/surrounding erythema, mildly dehisced. Neuro: Alert to self only. Word salad. Extremities: Is normally ambulatory, negative Pierre?s sign Psyche: normal mood and affect. Objective Labs Result Diagrams: 05/31/22 18:10 05/31/22 18:10 Labs: Laboratory Results - last 24 hr 05/31/22 05/31/22 05/31/22 18:10 18:10 18:10 WBC 5.8 RBC 3.54 L Hgb 10.5 L Hct 31.2 L MCV 88.0 MCH 29.7 MCHC 33.7 RDW 16.4 H Plt Count 233 Neut % (Auto) 67.9 Lymph % (Auto) 15.0 L Jack % (Auto) 13.5 Eos % (Auto) 2.7 Baso % (Auto) 0.9 Neut # (Auto) 3900 Lymph # (Auto) 900 L Jack # (Auto) 800 Eos # (Auto) 200 Baso # (Auto) 100 ESR PT INR APTT Sodium 134 L Potassium 4.4 Chloride 100 Carbon Dioxide 25 BUN 16 Creatinine 1.47 H Estimated GFR 46 L BUN/Creatinine Ratio 10.9 Glucose 113 H Lactate 1.0 Calcium 8.9 Total Bilirubin 0.2 AST 21 ALT 9 Alkaline Phosphatase 116 C-Reactive Protein Total Protein 7.3 Albumin 3.6 Globulin 3.7 Albumin/Globulin Ratio 1.0 Lipase 113 Procalcitonin 0.10 SARS-CoV-2 (PCR) 05/31/22 05/31/22 05/31/22 18:10 18:10 18:10 WBC RBC Hgb Hct MCV MCH MCHC RDW Plt Count Neut % (Auto) Lymph % (Auto) Jack % (Auto) Eos % (Auto) Baso % (Auto) Neut # (Auto) Lymph # (Auto) Jack # (Auto) Eos # (Auto) Baso # (Auto) ESR 38 H PT 12.3 INR 1.1 APTT 31 Sodium Potassium Chloride Carbon Dioxide BUN Creatinine Estimated GFR BUN/Creatinine Ratio Glucose Lactate Calcium Total Bilirubin AST ALT Alkaline Phosphatase C-Reactive Protein 5.3 H Total Protein Albumin Globulin Albumin/Globulin Ratio Lipase Procalcitonin SARS-CoV-2 (PCR) 05/31/22 18:10 WBC RBC Hgb Hct MCV MCH MCHC RDW Plt Count Neut % (Auto) Lymph % (Auto) Jack % (Auto) Eos % (Auto) Baso % (Auto) Neut # (Auto) Lymph # (Auto) Jack # (Auto) Eos # (Auto) Baso # (Auto) ESR PT INR APTT Sodium Potassium Chloride Carbon Dioxide BUN Creatinine Estimated GFR BUN/Creatinine Ratio Glucose Lactate Calcium Total Bilirubin AST ALT Alkaline Phosphatase C-Reactive Protein Total Protein Albumin Globulin Albumin/Globulin Ratio Lipase Procalcitonin SARS-CoV-2 (PCR) Negative Assessment & Plan Assessment & Plan narrative: Klever George is admitted for further evaluation and treatment of a dehised right hip incision site with suspected infection. Orthpedic surgery is consulted and will see the patient tomorrow to make a determination on whether to take him into the OR and/or only do antibiotic treatment only. Infected surgical wound, unknown if acute, likely chronically developing and present on admission * He was requested to have his sutures removed in the ED, but appears that 2 remain, I was not able to visualize * Start IV vancomycin, 1500 mg is his intial dose. * Dr. Craven to see tomorrow. Metabolic encephalopathy vs baseline worsening dementia * Worsened likely due to infection Chronic diastolic Congestive heart failure, present on admission * Appears euvolemic currently. * Last echo 10/2021 EF55-60% Essential hypertension, chronic, present on admission * Continue amlodipine and atenolol.??Admitting blood pressure 132/60 Gout, chronic, present on admission * Continue allopurinol Hyperlipidemia, chronic, present on admission * Presently untreated Depression, acute on chronic, present on admission * Continue duloxetine. BPH, chronic, present on admission * Continue tamsulosin History of stroke, chronic present on admission * ? Patient appears to be deteriorating. Obstructive sleep apnea, chronic, present on admission * Non compliant with CPAP. Dementia, chronic, present on admission * Unknown if at baseline, will reassess in the am. VTE Prophylaxis: Wells risk score holding pharmacological VTE prophylaxis in the setting of anticipated surgery, start Enoxaparin 40 mg subQ once daily if decision is made to not pursue surgery. Bilateral SCDs. Patient is admitted to the inpatient service due to the severity of disease, risks of further disease progression and this stay is expected to exceed 2 midnights. FEN: IV fluids: NS at 150 ml/hour, diet: NPO past midnight, then heart healthy post surgery if done, labs: CBC, CMP, liver enzymes, Mag, PT/INR Consultants Dr. Craven, Orthopedic Surgery, care and involvement in the patient?s care is appreciated. Dispo: probable d/c back to SNF. Code status: DNR, Huma Carbone, his daughter is his surrogate and POA. [X] I have utilized all available immediate resources to obtain, update, or review of the patient's current medications VTE Deep Vein Thrombosis/Pulmonary Embolism Present on Admission: No MIPS - Admit I confirm the patient?s Advance Care Plan is present, Code status is documented, Surrogate decision maker is in patient?s record: Yes MIPS - DC The patient has current or prior documentation of left ventricular ejection fraction (LVEF) less than 40%, or moderate or severely depressed left ventricular systolic function.: No COVID-19 COVID-19 status: Negative Result date/Date tested (Pos, Neg/Pending): 05/31/22
[2022-05-31] MEDS: LACTATED RINGERS 1,000 ML 100 ML IV (21:35)
[2022-05-31] MEDS: ACETAMINOPHEN 325 MG TABLET 650 MG PO (22:06)
[2022-05-31] MEDS: TAMSULOSIN 0.4 MG CAPSULE PO (22:06)
[2022-05-31] MEDS: SENNOSIDES 8.6 MG TABLET 17.2 MG PO (22:07)
[2022-05-31] MEDS: DOCUSATE 100 MG CAPSULE PO (22:07)
[2022-05-31] MEDS: PANTOPRAZOLE DR 40 MG TABLET PO (22:08)
[2022-05-31] MEDS: VANCOMYCIN 2,000 MG/400 ML PIGGYBACK 200 MG IV (22:34)
[2022-06-01] VITALS: BP 114/55; PULSE 71; RESP 26; TEMP 37.3; O2SAT 93
[2022-06-01] MEDS: OXYCODONE IR 10 MG TABLET PO (00:03)
[2022-06-01 05:00] VITALS: BP 110/80; PULSE 71; RESP 20; TEMP 37.2; O2SAT 92
[2022-06-01 06:00] VITALS: RESP 20
--- NOTE | 2022-06-01 06:26 | PC.NURSE ---
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 Alert but confused, delusional and hallucinates at times, able to follow simple directions with prompting. VSS, afebrile, SpO2 >92% on RA. Tylenol and oxycodone given for leg pain. Incisions right hip erythemic, charlotte intact to proximal incision. BLE edema, erythema, and scales, elevated throughout the night. SR, 1st degree AVB, continuously removing tele, provider ok to leave off Has been incontinent urine, but will sometimes use urinal with assist.
[2022-06-01 06:56] LABS: Add Manual Diff / Slide Review NO; Basophils Absolute Auto 0 /uL (0-100); Basophils Percent Auto 0.8 % (0-2); Eosinophils Absolute Auto 100 /uL (0-450); Eosinophils Percent Auto 2.2 % (2-4); Hematocrit 31.1 % (41-53); Hemoglobin 10.1 g/dL (13.5-17.5); Lymphocytes Absolute Auto 900 /uL (1100-4500); Lymphocytes Percent Auto 19.1 % (25-40); Mean Corpuscular HGB Conc 32.5 % (30-36); Mean Corpuscular Hemoglobin 29.1 PG (26-34); Mean Corpuscular Volume 89.6 fL (80-100); Monocytes Absolute Auto 600 /uL (0-900); Monocytes Percent Auto 13.3 % (3-14); Neutrophils Absolute Auto 3100 /uL (1500-7000); Neutrophils Percent Auto 64.6 % (50-75); Platelet Count 207 X10^3/uL (150-400); Red Blood Cell Count 3.47 X10^6/uL (4.5-5.9); Red Cell Distribution Width 16.6 % (11.6-14.8); White Blood Cell Count 4.7 X10^3/uL (4.5-11.0)
[2022-06-01 06:59] LABS: Alanine Aminotransferase 7 IU/L (<50); Albumin 3.2 g/dL (3.5-5.0); Alkaline Phosphatase 97 U/L (38-126); Aspartate Aminotransferase 19 IU/L (17-59); BUN Creatinine Ratio 9.8 (6-22); Bilirubin Total 0.2 mg/dL (0.2-1.3); Blood Urea Nitrogen 13 mg/dL (9-20); Calcium 8.7 mg/dL (8.4-10.2); Carbon Dioxide 27 mmol/L (22-32); Chloride 102 mmol/L (98-107); Estimated Glomerular Filt Rate 53 mL/min (>60); Globulin 3.3 g/dL (1.7-4.1); Glucose 101 mg/dL (80-110); HEMOLYSIS < 15 (0-50); Magnesium 1.7 mg/dL (1.6-2.3); Potassium 3.9 mmol/L (3.4-5.1); Sodium 137 mmol/L (137-145); Total Protein 6.5 g/dL (6.3-8.2)
--- NOTE | 2022-06-01 07:31 | PM.CN ---
History of Present Illness Consult details Date Patient Seen: 06/01/22 Time Patient Seen: 07:31 Chief complaint: Severe pain, MRSA Reason for consult: ?Wound infection after surgery Requesting provider: Renzo Morel Narrative: Patient is an 86-year-old male with a past medical history of dementia sustained a right hip fracture and had a intramedullary nailing on 04/24/2022 by myself. He was discharged to a residential facility. Unfortunately nursing facility failed to bring him into clinic for a postoperative appointment. We were called Friday afternoon from a PA at the residential facility that stated there was wound drainage redness and a swab for MRSA and they started vancomycin. Due to the late hour in the week no one was available to examine the patient they were recommended to be examined at the emergency department by Orthopedics for concern for wound infection. Patient was brought [facility] was examined in the emergency room. No leukocytosis. Elevated ESR and CRP. No obvious draining from the wounds. Patient was admitted started on vancomycin for observation overnight night and evaluation for potential irrigation debridement. X-rays in the ER showed stable alignment of the intramedullary nail. In the emergency room was noted the patient's surgical charlotte were still in place 5 weeks after surgery as the patient was not brought in further postop follow-up and the residential facility fail to remove these. There was redness around the surgical incision site in the area of the charlotte patient is otherwise difficult to examine and provides no history due to his baseline dementia Meds Home Medications and Allergies Home Medications Medication Instructions Recorded Confirmed Type cholecalciferol (vitamin D3) 50 2,000 unit PO DAILY 02/13/21 05/31/22 History mcg (2,000 unit) capsule (Vitamin D3) pantoprazole 40 mg tablet,delayed 40 mg PO BID #180 tabs 08/28/21 04/26/22 Rx release allopurinol 100 mg tablet 100 mg PO DAILY #90 tabs 10/23/21 04/26/22 Rx atenolol 50 mg tablet 50 mg PO BID #180 tabs 10/23/21 04/26/22 Rx tamsulosin 0.4 mg capsule 0.4 mg PO BEDTIME #90 caps 10/23/21 04/26/22 Rx melatonin 5 mg tablet 5 mg PO BEDTIME 11/02/21 05/31/22 History duloxetine 20 mg capsule,delayed 20 mg PO DAILY #90 caps 02/04/22 05/31/22 Rx release potassium chloride 20 mEq 20 meq PO DAILY #90 tabs 02/04/22 05/31/22 Rx tablet,extended release Saccharomyces boulardii 250 mg 250 mg PO DAILY 02/10/22 05/31/22 History capsule (Florastor) amlodipine 10 mg tablet 10 mg PO DAILY #90 tabs 02/28/22 05/31/22 Rx gabapentin 300 mg capsule 300 mg PO TID #90 caps 04/23/22 05/31/22 Rx acetaminophen 325 mg tablet 650 mg PO Q6HR PRN Fever/Mild Pain 04/30/22 05/31/22 Rx (1-3) #30 tabs docusate sodium 100 mg capsule 100 mg PO BID #60 caps 04/30/22 05/31/22 Rx oxycodone 10 mg tablet 10 mg PO Q4HR PRN Pain, Severe 04/30/22 05/31/22 Rx (7-10) #30 tabs Allergies Allergy/AdvReac Type Severity Reaction Status Date / Time No Known Drug Allergies Allergy Verified 04/24/22 12:21 Review of Systems Review of Systems ROS: Yes unobtainable due to mental condition Exam Vital Signs (past 8 hours): - 06/01/22 00:00 06/01/22 05:00 06/01/22 06:00 Temperature 99.2 F 98.9 F Pulse Rate 71 71 Respiratory Rate 26 H 20 20 Blood Pressure 114/55 L 110/80 Pulse Oximetry 93 92 Oxygen Delivery Method Room Air Narrative Exam Narrative: Patient is lying in bed. Dementia but mostly follows commands. Complaints of pain with light touch everywhere but of eventually compliance and helps rollover for examination Breathing unlabored on room air Heart regular rate and rhythm Musculoskeletal exam. Right hip is examined patient is rolled up onto a side with assistance. There are the 3 incisions from the cephalomedullary nail. Distal 2 incisions have had the charlotte removed. Points remaining in the more proximal incision these were removed by myself this morning. There is localized redness just around the staple borders consistent with skin reactivity to the metal charlotte. There is no surrounding induration or swelling. I am not able to elicit any drainage from the incisions. The thigh is soft. Knee is not swollen. There is bilateral lower extremity chronic cellulitis. Calf is soft. Patient demonstrates knee flexion and extension. Objective Imaging AP pelvis and left hip x-ray: My impression: Unchanged alignment right hip fracture with short cephalomedullary nail implant. No evidence of hardware failure or loosening. Fracture line no longer visualized. Radiologist's impression: IMPRESSION: Proximal femur intramedullary giovanni with screw fixation. Hardware appears stable. Dictated by: Broderick Chahal M.D. on 05/31/2022 at 19:59 Labs Result Diagrams: 06/01/22 06:23 06/01/22 06:23 Labs: Laboratory Results - last 24 hr 05/31/22 05/31/22 05/31/22 18:10 18:10 18:10 WBC 5.8 RBC 3.54 L Hgb 10.5 L Hct 31.2 L MCV 88.0 MCH 29.7 MCHC 33.7 RDW 16.4 H Plt Count 233 Neut % (Auto) 67.9 Lymph % (Auto) 15.0 L [place] % (Auto) 13.5 Eos % (Auto) 2.7 Baso % (Auto) 0.9 Neut # (Auto) 3900 Lymph # (Auto) 900 L [place] # (Auto) 800 Eos # (Auto) 200 Baso # (Auto) 100 ESR PT INR APTT Sodium 134 L Potassium 4.4 Chloride 100 Carbon Dioxide 25 BUN 16 Creatinine 1.47 H Estimated GFR 46 L BUN/Creatinine Ratio 10.9 Glucose 113 H Lactate 1.0 Calcium 8.9 Magnesium Total Bilirubin 0.2 AST 21 ALT 9 Alkaline Phosphatase 116 C-Reactive Protein Total Protein 7.3 Albumin 3.6 Globulin 3.7 Albumin/Globulin Ratio 1.0 Lipase 113 Procalcitonin 0.10 Nasal Screen MRSA (PCR) SARS-CoV-2 (PCR) 05/31/22 05/31/22 05/31/22 18:10 18:10 18:10 WBC RBC Hgb Hct MCV MCH MCHC RDW Plt Count Neut % (Auto) Lymph % (Auto) [place] % (Auto) Eos % (Auto) Baso % (Auto) Neut # (Auto) Lymph # (Auto) [place] # (Auto) Eos # (Auto) Baso # (Auto) ESR 38 H PT 12.3 INR 1.1 APTT 31 Sodium Potassium Chloride Carbon Dioxide BUN Creatinine Estimated GFR BUN/Creatinine Ratio Glucose Lactate Calcium Magnesium Total Bilirubin AST ALT Alkaline Phosphatase C-Reactive Protein 5.3 H Total Protein Albumin Globulin Albumin/Globulin Ratio Lipase Procalcitonin Nasal Screen MRSA (PCR) SARS-CoV-2 (PCR) 05/31/22 05/31/22 06/01/22 18:10 21:15 06:23 WBC 4.7 RBC 3.47 L Hgb 10.1 L Hct 31.1 L MCV 89.6 MCH 29.1 MCHC 32.5 RDW 16.6 H Plt Count 207 Neut % (Auto) 64.6 Lymph % (Auto) 19.1 L [place] % (Auto) 13.3 Eos % (Auto) 2.2 Baso % (Auto) 0.8 Neut # (Auto) 3100 Lymph # (Auto) 900 L [place] # (Auto) 600 Eos # (Auto) 100 Baso # (Auto) 0 ESR PT INR APTT Sodium Potassium Chloride Carbon Dioxide BUN Creatinine Estimated GFR BUN/Creatinine Ratio Glucose Lactate Calcium Magnesium Total Bilirubin AST ALT Alkaline Phosphatase C-Reactive Protein Total Protein Albumin Globulin Albumin/Globulin Ratio Lipase Procalcitonin Nasal Screen MRSA (PCR) Positive for mrsa H SARS-CoV-2 (PCR) Negative 06/01/22 06:23 WBC RBC Hgb Hct MCV MCH MCHC RDW Plt Count Neut % (Auto) Lymph % (Auto) [place] % (Auto) Eos % (Auto) Baso % (Auto) Neut # (Auto) Lymph # (Auto) [place] # (Auto) Eos # (Auto) Baso # (Auto) ESR PT INR APTT Sodium 137 Potassium 3.9 Chloride 102 Carbon Dioxide 27 BUN 13 Creatinine 1.32 H Estimated GFR 53 L BUN/Creatinine Ratio 9.8 Glucose 101 Lactate Calcium 8.7 Magnesium 1.7 Total Bilirubin 0.2 AST 19 ALT 7 Alkaline Phosphatase 97 C-Reactive Protein Total Protein 6.5 Albumin 3.2 L Globulin 3.3 Albumin/Globulin Ratio 1.0 Lipase Procalcitonin Nasal Screen MRSA (PCR) SARS-CoV-2 (PCR) [facility] Medical History Acquired hypothyroidism (09/16/16) Actinic keratosis Basal cell carcinoma 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) Colon polyps COVID-19 virus infection (01/24/22) CVA (cerebral vascular accident) Depression (06/29/15) Erectile dysfunction (06/20/16) Essential hypertension (06/29/15) Gout Hemorrhoids Hyperlipemia Insomnia Metabolic encephalopathy Obstructive sleep apnea Osteoarthritis Pneumonia due to COVID-19 virus Primary insomnia (09/16/16) 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 Surgical History History of ectropion repair (10/2017) Hx of surgical procedure Family History Family/Other Unknown family medical history Social History household members: none housing: [facility] Tobacco & Substance Use Smoking Status: Current some day smoker alcohol intake: current Assessment & Plan Assessment and plan (1) MRSA (methicillin resistant Staphylococcus aureus) colonization: Status: Acute (2) Status post-operative repair of closed hip fracture: Status: Acute (3) Wound cellulitis after surgery: Status: Acute Plan Patient is overall nontoxic appearing. He does have elevated ESR and CRP these can be consistent with his chronic medical conditions and relatively recent surgical history. He does have localized erythema around the incision sites and the charlotte. I attribute this mostly to the time the charlotte have been in place. The skin normally is sensitive and reacts to these after 10-14 days. These have been in place 5 weeks as they were not removed by the residential facility and the patient was not brought to the orthopedic office for follow-up. There does not appear to be any underlying deep infection. It is unclear to me where the MRSA swab came from. Nursing is able to clarify they believe it was a nasal swab not the wound which is somewhat confusing with the [facility] report that they started vancomycin. There appears to be a skin swab from the ER that has some Gram positives. Either way I do not believe the patient requires any irrigation debridement or other surgical treatment. The charlotte were removed. May weightbear as tolerated. Recommend normal treatment for MRSA colonization and cellulitis. Can continue empiric antibiotic vancomycin until final blood cultures come back but then should be able to switch to 10-14 course oral coverage. Patient can have a diet. And can be discharged back to residential when appropriate per the primary team. Should follow-up with Orthopedic surgery in 2 weeks. Okay for DVT prophylaxis. COVID-19 COVID-19 status: Negative Time Spent With Patient Time with patient: less than 30 minutes Critical Care time: I spent a total of [] minutes of critical care time on this patient's care today; this time is exclusive of procedural time.
[2022-06-01 08:40] VITALS: BP 117/83; PULSE 73; RESP 18; TEMP 37.1; O2SAT 93
[2022-06-01] MEDS: PANTOPRAZOLE DR 40 MG TABLET PO (11:51)
[2022-06-01] MEDS: DOCUSATE 100 MG CAPSULE PO (11:51)
[2022-06-01] MEDS: DOXYCYCLINE HYCLATE 100 MG TABLET PO (11:51)
[2022-06-01] MEDS: MAGNESIUM CHLORIDE 64 MG TABLET 128 MG PO (11:52)
[2022-06-01] MEDS: MUPIROCIN 22 GM OINT 1 APPLIC TOP (11:54)
[2022-06-01 12:00] VITALS: BP 147/67; PULSE 71; RESP 16; TEMP 36.6; O2SAT 94
--- NOTE | 2022-06-01 15:02 | CM.DPNOTE ---
DCP Note Patient is an 86 yo male, well known to this CM team, admitted w/redness and pain around his surgical site (recent hip fx and repair) and discharged back to his SNF today, [facility], after Dr Craven consulted, removed charlotte and ruled out infectious process. Apparently, patient had not made his outpatient appt w/the Ortho team and so had not had his sutures out in the recommended timeframe, resulting in swelling, redness and sensitivity to touch This UNCLAIMED PROPERTY MANAGER attempted multiple times to get a hold of a staff member in admissions and inevitably spoke w/ Ting, [employer] admission nurse who assisted this team w/coordination BLS arranged for p/u at 1430, POLST, med list, BLS form completed and signed by Dr Piedra (patient DNR/limited code) Faxed this to Ting at [facility]. No need for updated COVID PCR or PASRR. TA Chandler gave report Plan: DC back to [facility] via BLS today, close outpatient f/u w/Ortho recommended JW
--- NOTE | 2022-06-01 18:34 | P.DS_ITS ---
History of Present Illness History of Present Illness Chief complaint: Severe pain, MRSA Narrative: Per admitting provider: Klever George is an 86-year-old male history of hypertension, hypothyroidism, sleep apnea, prior stroke, CHF,? mild dementia and recent Herpes zoster ophthalmicus/keratitis/occular HTN left eye, cellulitis of left side of face presenting today?from his rehab facility after having undergone a right hip ORIF on 04/25/22 and discharged on April 30. He presented with increased daphne n, erythema around the incision site, and drainage reported from a recent culture resulting in MRSA. I am unable to obtain a history from the patient, he keeps referring to a [facility] [place] [facility]. Per the ED provider, he was contacted by Dr. Michaud, the orthopedist and the patient reportedly did not present for followup and did not have his sutures removed. Per the ED provider his exam noted some wound dehiscence. In the ED, his sutures were removed at the request of orthopedics and was req uested for admission with a decision made tomorrow on continuing antibiotic treatment and/or whether to return him to the OR. X-ray of the hip indicated stable placement of hardware with a proximal femur intramedullary giovanni with screw fixation. He is afebrile, blood pressure 164/75, heart rate 75, respiratory rate 18, oxygen saturation of 94% on room air, he weighs 111.8 kg with a BMI of 27.1. His white count is within normal limits, hemoglobin and hematocrit are 10.5 and 31.2 slightly lower than his baseline, platelet count 233, ESR is elevated at 38, creatinine is 1.47 with an EGFR 46 also slightly abnormal over baseline, procalcitonin is negative and COVID-19 PCR is negative. FH: I am unable to obtain a family history from this patient. Discharge Providers Provider Date of admission: 05/31/22 20:13 Discharge Date: 06/01/22 Primary care physician: Larry Roman MD Consults: 05/31/22 20:24 Consult to Physician Routine Comment: Consulting Provider: Shobha Craven Reason for consultation: infected right hip replacement site, delayed staple removal Has provider been notified: Yes Discharge provider: Severino Piedra MD Summary Hospital Course Discharge Diagnosis: 1. Cellulitis, retained charlotte as etiology 2. Dementia 3. CHFpEF 4. Hypertension 5. Gout 6. Hyperlipidemia 7. Depression 8. NATTY 9. History of CVA Hospital Course: Mr. George was admitted for cellulitis for retained charlotte. This occurred due to missing follow up with his orthopedic team. He was not septic, and orthopedic surgery was consulted who removed charlotte and evaluated incision and determined no surgical debridement or washout was needed. He did not have positive cultures, but did have a nasal MRSA swab that was positive. He should be on bactroban for 5 days for the MRSA swab. In addition he should be on doxycycline for the cellulitis for two weeks. He should follow up with Dr. Craven, orthopedic surgeon, in two weeks. Exam Vital Signs (past 8 hours): - 06/01/22 12:00 Temperature 98 F Pulse Rate 71 Respiratory Rate 16 Blood Pressure 147/67 H Pulse Oximetry 94 Oxygen Delivery Method Room Air Oxygen Flow Rate 0 Narrative Exam Narrative: GEN: no acute distress CV: regular rate and rhythm PULM: clear bilaterally EXT: hip with tenderness to palpation on right Objective Labs Result Diagrams: 06/01/22 06:23 06/01/22 06:23 Labs: Laboratory Results - last 24 hr 05/31/22 05/31/22 05/31/22 18:10 18:10 18:10 WBC 5.8 RBC 3.54 L Hgb 10.5 L Hct 31.2 L MCV 88.0 MCH 29.7 MCHC 33.7 RDW 16.4 H Plt Count 233 Neut % (Auto) 67.9 Lymph % (Auto) 15.0 L [place] % (Auto) 13.5 Eos % (Auto) 2.7 Baso % (Auto) 0.9 Neut # (Auto) 3900 Lymph # (Auto) 900 L [place] # (Auto) 800 Eos # (Auto) 200 Baso # (Auto) 100 ESR PT INR APTT Sodium 134 L Potassium 4.4 Chloride 100 Carbon Dioxide 25 BUN 16 Creatinine 1.47 H Estimated GFR 46 L BUN/Creatinine Ratio 10.9 Glucose 113 H Lactate 1.0 Calcium 8.9 Magnesium Total Bilirubin 0.2 AST 21 ALT 9 Alkaline Phosphatase 116 C-Reactive Protein Total Protein 7.3 Albumin 3.6 Globulin 3.7 Albumin/Globulin Ratio 1.0 Lipase 113 Procalcitonin 0.10 Nasal Screen MRSA (PCR) SARS-CoV-2 (PCR) 05/31/22 05/31/22 05/31/22 18:10 18:10 18:10 WBC RBC Hgb Hct MCV MCH MCHC RDW Plt Count Neut % (Auto) Lymph % (Auto) [place] % (Auto) Eos % (Auto) Baso % (Auto) Neut # (Auto) Lymph # (Auto) [place] # (Auto) Eos # (Auto) Baso # (Auto) ESR 38 H PT 12.3 INR 1.1 APTT 31 Sodium Potassium Chloride Carbon Dioxide BUN Creatinine Estimated GFR BUN/Creatinine Ratio Glucose Lactate Calcium Magnesium Total Bilirubin AST ALT Alkaline Phosphatase C-Reactive Protein 5.3 H Total Protein Albumin Globulin Albumin/Globulin Ratio Lipase Procalcitonin Nasal Screen MRSA (PCR) SARS-CoV-2 (PCR) 05/31/22 05/31/22 06/01/22 18:10 21:15 06:23 WBC 4.7 RBC 3.47 L Hgb 10.1 L Hct 31.1 L MCV 89.6 MCH 29.1 MCHC 32.5 RDW 16.6 H Plt Count 207 Neut % (Auto) 64.6 Lymph % (Auto) 19.1 L [place] % (Auto) 13.3 Eos % (Auto) 2.2 Baso % (Auto) 0.8 Neut # (Auto) 3100 Lymph # (Auto) 900 L [place] # (Auto) 600 Eos # (Auto) 100 Baso # (Auto) 0 ESR PT INR APTT Sodium Potassium Chloride Carbon Dioxide BUN Creatinine Estimated GFR BUN/Creatinine Ratio Glucose Lactate Calcium Magnesium Total Bilirubin AST ALT Alkaline Phosphatase C-Reactive Protein Total Protein Albumin Globulin Albumin/Globulin Ratio Lipase Procalcitonin Nasal Screen MRSA (PCR) Positive for mrsa H SARS-CoV-2 (PCR) Negative 06/01/22 06:23 WBC RBC Hgb Hct MCV MCH MCHC RDW Plt Count Neut % (Auto) Lymph % (Auto) [place] % (Auto) Eos % (Auto) Baso % (Auto) Neut # (Auto) Lymph # (Auto) [place] # (Auto) Eos # (Auto) Baso # (Auto) ESR PT INR APTT Sodium 137 Potassium 3.9 Chloride 102 Carbon Dioxide 27 BUN 13 Creatinine 1.32 H Estimated GFR 53 L BUN/Creatinine Ratio 9.8 Glucose 101 Lactate Calcium 8.7 Magnesium 1.7 Total Bilirubin 0.2 AST 19 ALT 7 Alkaline Phosphatase 97 C-Reactive Protein Total Protein 6.5 Albumin 3.2 L Globulin 3.3 Albumin/Globulin Ratio 1.0 Lipase Procalcitonin Nasal Screen MRSA (PCR) SARS-CoV-2 (PCR) [facility] Medical History Acquired hypothyroidism (09/16/16) Actinic keratosis Basal cell carcinoma 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) Colon polyps COVID-19 virus infection (01/24/22) CVA (cerebral vascular accident) Depression (06/29/15) Erectile dysfunction (02/12/16) Essential hypertension (06/29/15) Gout Hemorrhoids Hyperlipemia Insomnia Metabolic encephalopathy Obstructive sleep apnea Osteoarthritis Pneumonia due to COVID-19 virus Primary insomnia (09/16/16) 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 George was admitted for skin infection. He had charlotte removed by orthopedic surgery. He will be discharged on antibiotics for 10 days. He should follow up with orthopedic surgery, Dr. Shobha Craven in 10-14 days. He should have bactroban ointment applied to his nares twice a day for 5 days. I certify the postop hospital long term care is medically necessary on a continuing basis for any conditions for which he/ she received care during this hospitalization.: Yes The receiving facility has agreed to accept transfer and provide medical miles tment.: Yes Discharge orders & Medications Prescriptions: New doxycycline hyclate 100 mg Tablet 100 mg PO BID Qty: 20 0RF mupirocin 2 % Ointment 1 applic topical BID Qty: 5 0RF Continued pantoprazole 40 mg tablet,delayed release (DR/EC) 40 mg PO BID Qty: 180 3RF Label Comments: 40 mg PO BID tamsulosin 0.4 mg capsule 0.4 mg PO BEDTIME Qty: 90 3RF atenolol 50 mg tablet 50 mg PO BID Qty: 180 1RF allopurinol 100 mg tablet 100 mg PO DAILY Qty: 90 1RF duloxetine 20 mg capsule,delayed release(DR/EC) 20 mg PO DAILY Qty: 90 4RF potassium chloride 20 mEq tablet extended release 20 meq PO DAILY Qty: 90 4RF amlodipine 10 mg tablet 10 mg PO DAILY Qty: 90 3RF gabapentin 300 mg capsule 300 mg PO TID Qty: 90 5RF cholecalciferol (vitamin D3) [Vitamin D3] 50 mcg (2,000 unit) Capsule 2,000 unit PO DAILY melatonin 5 mg Tablet 5 mg PO BEDTIME Saccharomyces boulardii [Florastor] 250 mg Capsule 250 mg PO DAILY acetaminophen 325 mg Tablet 650 mg PO Q6HR PRN (Reason: Fever/Mild Pain (1-3)) Qty: 30 0RF docusate sodium 100 mg Capsule 100 mg PO BID Qty: 60 0RF oxycodone 10 mg Tablet 10 mg PO Q4HR PRN (Reason: Pain, Severe (7-10)) Qty: 30 0RF Follow up/Referrals: Larry Roman MD [Primary Care Provider] - Discharge Health Status Multidrug resistant organism: MRSA Precautions: Contact Diet/Activity/Treatments Diet: Regular Liquid consistency: Normal/Thin Food texture: Regular Discharge Data Primary Care Provider: Larry Roman Attending Provider: Shyanne Mccall VTE Deep Vein Thrombosis/Pulmonary Embolism Present on Admission: No
--- NOTE | 2022-06-05 11:46 | PC.NURSE ---
Late Entry; Vancomycin infusion initiated 06/03 at 2234 complete at 0035.
== END 2022-06-01 14:40 ==
LOC: ED 20:11 → AC 20:14 → ICU 20:24
PROVIDERS: Emergency Medicine; Admitting Provider Nurse Practitioner Family; Emergency Provider Emergency Medicine; Family Provider Student in an Organized Health Care Education/Training Program; PCP Student in an Organized Health Care Education/Training Program; Visit Provider Nurse Practitioner Family
DX: L03.319 Cellulitis of trunk, unspecified (principal); T81.41XA Infection following a procedure, superficial incisional surgical site, initial encounter; Z22.322 Carrier or suspected carrier of Methicillin resistant Staphylococcus aureus; G47.33 Obstructive sleep apnea (adult) (pediatric); F32.A Depression, unspecified; E78.5 Hyperlipidemia, unspecified; I11.0 Hypertensive heart disease with heart failure; I50.30 Unspecified diastolic (congestive) heart failure; F03.90 Unspecified dementia, unspecified severity, without behavioral disturbance, psychotic disturbance, mood disturbance, and anxiety; Z98.890 Other specified postprocedural states; Z20.822 Contact with and (suspected) exposure to COVID-19
CPT/HCPCS: 36415; 71045; 73502; 80053; 83605; 83690; 83735; 84145; 85025; 85610; 85651; 85730; 86140; 87040; 87070; 87075; 87077; 87186; 87205; 87635; 87797; 93005; 96361; 96365; 96366; 99284; C9803; G0378